=== PATIENT | female | born 1955 | race Caucasian/White ===

== ENCOUNTER → 2016-04-03 | Outpatient (CLI) | payer MEDICARE ==
--- NOTE | 2016-04-07 10:13 | MM ---
Reason for exam: screening (asymptomatic). Last mammogram was performed 1 year ago. History: Patient is postmenopausal. Benign US biopsy breast VAD LT of the left breast, April 18, 2014. Benign left mammotome panel of the left breast, May 22, 2006. Physical Findings: A clinical breast exam by your physician is recommended on an annual basis and results should be correlated with mammographic findings. MG 3D Screening Mammo W/Cad Bilateral CC and MLO view(s) were taken. CV view(s) were taken of the left breast. Prior study comparison: April 02, 2015, bilateral MG 3d diag mammo w/cad NGOC. April 18, 2014, left breast MG diagnostic mammo LT wo CAD. The breast tissue is heterogeneously dense. This may lower the sensitivity of mammography. Benign calcifications. There is no discrete abnormality. No significant changes when compared with prior studies. ASSESSMENT: Benign, BI-RAD 2 RECOMMENDATION: Routine screening mammogram of both breasts in 1 year.
== END | disposition home or self-care (01) ==
LOC: RADMAMWWP 12:51
PROVIDERS: ATTEND Family Medicine
DX: Z12.31 Encounter for screening mammogram for malignant neoplasm of breast (principal)
CPT/HCPCS: 77063; G0202

== ENCOUNTER 2016-07-06 09:13 | Inpatient (IN) | payer MEDICARE ==
[2016-07-06] MEDS ORDERED: ACETAMINOPHEN TAB 500 MG TAB PO STA (09:54)
[2016-07-06] MEDS ORDERED: IBUPROFEN IV 600 MG in SODIUM CHLORIDE 0.9% 250 ML IV STA (09:54)
--- NOTE | 2016-07-06 10:01 | ED ---
General Adult HPI - General Chief complaint: Weakness Stated complaint: ALTERED, NOT FEELING RIGHT Hx DIABETIC Time Seen by Provider: 07/06/16 09:30 Source: patient, RN notes reviewed Mode of arrival: wheelchair Limitations: no limitations - History of Present Illness Initial comments: This is a 61-year-old female with past medical history significant for diabetes and a past history of sepsis. Patient also has significant pedal edema on a chronic basis. Patient comes in today because of a high fever and feeling weak. Patient states she has a mild headache. Patient denies numbness weakness. Patient denies any lightheadedness or dizziness. Patient denies any chest pain difficulty breathing or shortness of breath per patient denies any palpitations. Patient denies any abdominal pain patient denies nausea vomiting diarrhea. Patient denies any new redness to any of her extremities. Patient states she does have a cut on her left big toe but does not appear to be erythematous around the cut. Patient denies any dysuria hematuria urinary frequency. Patient is normally incontinent of urine. - Related Data Home Medications Medication Instructions Recorded Confirmed Calcitriol 0.5 mcg PO COLLINS 09/30/13 07/06/16 Clopidogrel Bisulfate [Plavix] 75 mg PO DAILY 09/30/13 07/06/16 DULoxetine HCL [Cymbalta] 60 mg PO DAILY 09/30/13 07/06/16 Metoprolol Succinate [Toprol XL] 25 mg PO DAILY 09/30/13 07/06/16 oxyCODONE-APAP 10-325MG [Percocet 1 tab PO Q6H PRN 09/30/13 07/06/16 10-325 mg] Furosemide [Lasix] 80 mg PO DAILY 12/21/13 07/06/16 INSULIN LISPRO (humaLOG) [humaLOG See Protocol SQ AC-TID 04/12/14 07/06/16 (formulary)] Allopurinol [Zyloprim] 200 mg PO DAILY 01/28/16 07/06/16 Pregabalin [Lyrica] 75 mg PO BID 01/28/16 07/06/16 Ergocalciferol [Vitamin D2] 50,000 unit PO COLLINS 07/06/16 07/06/16 Ferrous Sulfate [Feosol] 325 mg PO DAILY 07/06/16 07/06/16 Furosemide [Lasix] 40 mg PO HS 07/06/16 07/06/16 Losartan Potassium [Cozaar] 25 mg PO DAILY 07/06/16 07/06/16 Meclizine HCl 12.5 mg PO TID PRN 07/06/16 07/06/16 Topiramate [Topamax] 25 mg PO DAILY 07/06/16 07/06/16 Allergies Allergy/AdvReac Type Severity Reaction Status Date / Time No Known Allergies Allergy Verified 07/06/16 10:00 Review of Systems ROS Statement: Those systems with pertinent positive or pertinent negative responses have been documented in the HPI. ROS Other: All systems not noted in ROS Statement are negative. Past Medical History Past Medical History: Diabetes Mellitus, GERD/Reflux, Rheumatoid Arthritis (RA) , Sleep Apnea/CPAP/BIPAP Additional Past Medical History / Comment(s): kidney failure, broken Lt foot 2011, stroke 2004, vertigo, neck pain History of Any Multi-Drug Resistant Organisms: None Reported Past Surgical History: Breast Surgery Additional Past Surgical History / Comment(s): breast biopsy, gastric sleeve , colonoscopy 04/14/14 Past Anesthesia/Blood Transfusion Reactions: Motion Sickness Past Psychological History: Depression Additional Psychological History / Comment(s): and lives with family home with her . 2 adult children. No tobacco or alcohol use. No experience. No international travel. Pet cats at home they are not new. Used to work in a care of elderly persons Smoking Status: Never smoker Past Alcohol Use History: None Reported Past Drug Use History: None Reported - Past Family History Mother Family Medical History: Diabetes Mellitus Additional Family Medical History / Comment(s): heart attack, Brother of lung cancer 04/19/14 Father Family Medical History: Cancer Additional Family Medical History / Comment(s): lung cancer Brother(s) Family Medical History: Cancer Additional Family Medical History / Comment(s): LUNG General Exam - General Exam Comments Initial Comments: GENERAL: Patient is well-developed and well-nourished. Patient is nontoxic and well- hydrated and is in mild distress. ENT: Neck is soft and supple. No significant lymphadenopathy is noted. Oropharynx is clear. Moist mucous membranes. Neck has full range of motion without eliciting any pain. EYES: The sclera were anicteric and conjunctiva were pink and moist. Extraocular movements were intact and pupils were equal round and reactive to light. Eyelids were unremarkable. PULMONARY: Unlabored respirations. Good breath sounds bilaterally. No audible rales rhonchi or wheezing was noted. CARDIOVASCULAR: There is a regular rate and rhythm without any murmurs gallops or rubs. ABDOMEN: Soft and nontender with normal bowel sounds. No palpable organomegaly was noted. There is no palpable pulsatile mass. SKIN: Skin is clear with no lesions or rashes and otherwise unremarkable. NEUROLOGIC: Patient is alert and oriented x3. Cranial nerves II through XII are grossly intact. Motor and sensory are also intact. Normal speech, volume and content. Symmetrical smile. MUSCULOSKELETAL: Normal extremities with adequate strength and full range of motion. 2+ edema bilaterally patient also has a small superficial abrasion on the anterior surface of the left first toe. Patient's right lower leg is erythematous however patient states this is chronic and it is unchanged. LYMPHATICS: No significant lymphadenopathy is noted PSYCHIATRIC: Normal psychiatric evaluation. Normal interpersonal interactions appears functionally intact in deals appropriately with others. No signs of depression. No signs of anxiety. Limitations: no limitations Course Vital Signs 07/06/16 07/06/16 07/06/16 09:25 09:50 10:25 Temperature 102.9 F H 100.9 F H Pulse Rate 100 103 H 103 H Respiratory 20 18 18 Rate Blood Pressure 194/76 191/77 156/66 O2 Sat by Pulse 100 100 100 Oximetry Medical Decision Making - Medical Decision Making EKG shows sinus tachycardia at 101 bpm IL interval 142 QRS is 70 QT interval 356 QTC is 461. Patient's EKG shows no ST segment elevation or ST segment depression. - Lab Data Result diagrams: 07/06/16 09:50 07/06/16 09:50 Lab Results 07/06/16 07/06/16 07/06/16 Range/Units 09:48 09:50 09:50 WBC 27.9 H* (3.8-10.6) k/uL RBC 4.51 (3.80-5.40) m/uL Hgb 14.5 (11.4-16.0) gm/dL Hct 43.6 (34.0-46.0) % MCV 96.8 (80.0-100.0) fL MCH 32.2 (25.0-35.0) pg MCHC 33.2 (31.0-37.0) g/dL RDW 13.4 (11.5-15.5) % Plt Count 267 (150-450) k/uL Neutrophils % 94 % Lymphocytes % 2 % Monocytes % 3 % Eosinophils % 0 % Basophils % 0 % Neutrophils # 26.3 H (1.3-7.7) k/uL Lymphocytes # 0.6 L (1.0-4.8) k/uL Monocytes # 0.7 (0-1.0) k/uL Eosinophils # 0.1 (0-0.7) k/uL Basophils # 0.1 (0-0.2) k/uL Manual Slide Review Performed Toxic Granulation Present PT (9.0-12.0) sec INR (<1.1) APTT (22.0-30.0) sec Sodium (137-145) mmol/L Potassium (3.5-5.1) mmol/L Chloride (98-107) mmol/L Carbon Dioxide (22-30) mmol/L Anion Gap mmol/L BUN (7-17) mg/dL Creatinine (0.52-1.04) mg/dL Est GFR (MDRD) Af Amer (>60 ml/min/1.73 sqM) Est GFR (MDRD) Non-Af (>60 ml/min/1.73 sqM) Glucose (74-99) mg/dL POC Glucose (mg/dL) 261 H (75-99) mg/dL POC Glu Dredge Hand ID Vijaya Mcmanus Plasma Lactic Acid Flex (0.7-2.0) mmol/L Calcium (8.4-10.2) mg/dL Total Bilirubin (0.2-1.3) mg/dL AST (14-36) U/L ALT (9-52) U/L Alkaline Phosphatase (38-126) U/L Total Creatine Kinase 125 (30-135) U/L CK-MB (CK-2) 1.3 (0.0-2.4) ng/mL CK-MB (CK-2) Rel Index 1.0 Troponin I 0.041 H* (0.000-0.034) ng/mL Total Protein (6.3-8.2) g/dL Albumin (3.5-5.0) g/dL Urine Color Urine Appearance (Clear) Urine pH (5.0-8.0) Ur Specific Lehr (1.001-1.035) Urine Protein (Negative) Urine Glucose (UA) (Negative) Urine Ketones (Negative) Urine Blood (Negative) Urine Nitrite (Negative) Urine Bilirubin (Negative) Urine Urobilinogen (<2.0) mg/dL Ur Leukocyte Esterase (Negative) Urine RBC (0-5) /hpf Urine WBC (0-5) /hpf Ur Squamous Epith Cells (0-4) /hpf Hyaline Casts (0-2) /lpf Urine Mucus (None) /hpf Influenza Type A RNA (Not Detectd) Influenza Type B (PCR) (Not Detectd) 07/06/16 07/06/16 07/06/16 Range/Units 09:50 09:50 09:50 WBC (3.8-10.6) k/uL RBC (3.80-5.40) m/uL Hgb (11.4-16.0) gm/dL Hct (34.0-46.0) % MCV (80.0-100.0) fL MCH (25.0-35.0) pg MCHC (31.0-37.0) g/dL RDW (11.5-15.5) % Plt Count (150-450) k/uL Neutrophils % % Lymphocytes % % Monocytes % % Eosinophils % % Basophils % % Neutrophils # (1.3-7.7) k/uL Lymphocytes # (1.0-4.8) k/uL Monocytes # (0-1.0) k/uL Eosinophils # (0-0.7) k/uL Basophils # (0-0.2) k/uL Manual Slide Review Toxic Granulation PT 11.5 (9.0-12.0) sec INR 1.2 (<1.1) APTT 31.5 H (22.0-30.0) sec Sodium 138 (137-145) mmol/L Potassium 4.9 (3.5-5.1) mmol/L Chloride 99 (98-107) mmol/L Carbon Dioxide 26 (22-30) mmol/L Anion Gap 13 mmol/L BUN 28 H (7-17) mg/dL Creatinine 1.38 H (0.52-1.04) mg/dL Est GFR (MDRD) Af Amer 47 (>60 ml/min/1.73 sqM) Est GFR (MDRD) Non-Af 39 (>60 ml/min/1.73 sqM) Glucose 276 H (74-99) mg/dL POC Glucose (mg/dL) (75-99) mg/dL POC Glu Dredge Hand ID Plasma Lactic Acid Flex 2.6 H* (0.7-2.0) mmol/L Calcium 9.3 (8.4-10.2) mg/dL Total Bilirubin 1.3 (0.2-1.3) mg/dL AST 24 (14-36) U/L ALT 22 (9-52) U/L Alkaline Phosphatase 125 (38-126) U/L Total Creatine Kinase (30-135) U/L CK-MB (CK-2) (0.0-2.4) ng/mL CK-MB (CK-2) Rel Index Troponin I (0.000-0.034) ng/mL Total Protein 7.8 (6.3-8.2) g/dL Albumin 4.3 (3.5-5.0) g/dL Urine Color Urine Appearance (Clear) Urine pH (5.0-8.0) Ur Specific Lehr (1.001-1.035) Urine Protein (Negative) Urine Glucose (UA) (Negative) Urine Ketones (Negative) Urine Blood (Negative) Urine Nitrite (Negative) Urine Bilirubin (Negative) Urine Urobilinogen (<2.0) mg/dL Ur Leukocyte Esterase (Negative) Urine RBC (0-5) /hpf Urine WBC (0-5) /hpf Ur Squamous Epith Cells (0-4) /hpf Hyaline Casts (0-2) /lpf Urine Mucus (None) /hpf Influenza Type A RNA (Not Detectd) Influenza Type B (PCR) (Not Detectd) 07/06/16 07/06/16 Range/Units 10:00 10:15 WBC (3.8-10.6) k/uL RBC (3.80-5.40) m/uL Hgb (11.4-16.0) gm/dL Hct (34.0-46.0) % MCV (80.0-100.0) fL MCH (25.0-35.0) pg MCHC (31.0-37.0) g/dL RDW (11.5-15.5) % Plt Count (150-450) k/uL Neutrophils % % Lymphocytes % % Monocytes % % Eosinophils % % Basophils % % Neutrophils # (1.3-7.7) k/uL Lymphocytes # (1.0-4.8) k/uL Monocytes # (0-1.0) k/uL Eosinophils # (0-0.7) k/uL Basophils # (0-0.2) k/uL Manual Slide Review Toxic Granulation PT (9.0-12.0) sec INR (<1.1) APTT (22.0-30.0) sec Sodium (137-145) mmol/L Potassium (3.5-5.1) mmol/L Chloride (98-107) mmol/L Carbon Dioxide (22-30) mmol/L Anion Gap mmol/L BUN (7-17) mg/dL Creatinine (0.52-1.04) mg/dL Est GFR (MDRD) Af Amer (>60 ml/min/1.73 sqM) Est GFR (MDRD) Non-Af (>60 ml/min/1.73 sqM) Glucose (74-99) mg/dL POC Glucose (mg/dL) (75-99) mg/dL POC Glu Dredge Hand ID Plasma Lactic Acid Flex (0.7-2.0) mmol/L Calcium (8.4-10.2) mg/dL Total Bilirubin (0.2-1.3) mg/dL AST (14-36) U/L ALT (9-52) U/L Alkaline Phosphatase (38-126) U/L Total Creatine Kinase (30-135) U/L CK-MB (CK-2) (0.0-2.4) ng/mL CK-MB (CK-2) Rel Index Troponin I (0.000-0.034) ng/mL Total Protein (6.3-8.2) g/dL Albumin (3.5-5.0) g/dL Urine Color Yellow Urine Appearance Clear (Clear) Urine pH 6.0 (5.0-8.0) Ur Specific Lehr 1.015 (1.001-1.035) Urine Protein 2+ H (Negative) Urine Glucose (UA) 1+ H (Negative) Urine Ketones Trace H (Negative) Urine Blood Trace H (Negative) Urine Nitrite Negative (Negative) Urine Bilirubin Negative (Negative) Urine Urobilinogen 3.0 (<2.0) mg/dL Ur Leukocyte Esterase Negative (Negative) Urine RBC 1 (0-5) /hpf Urine WBC 1 (0-5) /hpf Ur Squamous Epith Cells <1 (0-4) /hpf Hyaline Casts 12 H (0-2) /lpf Urine Mucus Rare H (None) /hpf Influenza Type A RNA Not Detected (Not Detectd) Influenza Type B (PCR) Not Detected (Not Detectd) Disposition Clinical Impression: Sepsis, Cellulitis Disposition: ADMITTED IP TO THIS HOSP Referrals: Mere Rodriguez DO [Primary Care Provider] - 1-2 days Time of Disposition: 10:52
[2016-07-06] MEDS: SODIUM CHLORIDE 0.9% 500 ML IV SCH ×2 (10:03→12:52)
[2016-07-06 10:07] LABS: Glucose,Whole Blood 261 mg/dL (75-99)
[2016-07-06 10:15] LABS: Basophils # (A) 0.1 k/uL (0-0.2); Basophils % (A) 0 %; CH 31.8; Eosinophils # (A) 0.1 k/uL (0-0.7); Eosinophils % (A) 0 %; HCT 43.6 % (34.0-46.0); HDW 2.54; HGB 14.5 gm/dL (11.4-16.0); Luc # (Auto) 0.15; Luc % (Auto) 1; Lymphocytes # (A) 0.6 k/uL (1.0-4.8); Lymphocytes % (A) 2 %; MCH 32.2 pg (25.0-35.0); MCHC 33.2 g/dL (31.0-37.0); MCV 96.8 fL (80.0-100.0); Mean Platelet Volume 7.2; Monocytes # (A) 0.7 k/uL (0-1.0); Monocytes % (A) 3 %; Neutrophils # (A) 26.3 k/uL (1.3-7.7); Neutrophils % (A) 94 %; RBC 4.51 m/uL (3.80-5.40); RDW 13.4 % (11.5-15.5)
[2016-07-06 10:18] LABS: INR 1.2 (<1.1); Partial Thromboplastin Time 31.5 sec (22.0-30.0); Prothrombin Time 11.5 sec (9.0-12.0); WBC 27.9 k/uL (3.8-10.6)
[2016-07-06 10:21] LABS: Calcium 9.3 mg/dL (8.4-10.2); Potassium 4.9 mmol/L (3.5-5.1); Total Bilirubin 1.3 mg/dL (0.2-1.3); Total Protein 7.8 g/dL (6.3-8.2)
[2016-07-06 10:31] LABS: Manual Review Performed; Toxic Granulation Present
[2016-07-06] MEDS ORDERED: LEVOFLOXACIN 750MG-D5W PMX 750 MG in DEXTROSE/WATER 1 150ML.BAG IVPB STA (10:32)
[2016-07-06 10:35] LABS: Appearance,Urine Clear (Clear); Bilirubin,Urine Negative (Negative); Glucose,Urine (UA) 1+ (Negative); Ketones,Urine Trace (Negative); Leukocyte Esterase,Urine Negative (Negative); Mucus,Urine Rare /hpf; Nitrite,Urine Negative (Negative); Particle Count 4729; Protein,Urine 2+ (Negative); RBC,Urine 1 /hpf (0-5); Specific Gravity,Urine 1.015 (1.001-1.035); Squamous Epithelial Cell,Urine <1 /hpf (0-4); UA Billing (MACRO vs. MICRO) MICRO; WBC,Urine 1 /hpf (0-5)
[2016-07-06 10:47] LABS: Creatine Kinase MB 1.3 ng/mL (0.0-2.4)
[2016-07-06 10:50] LABS: Troponin I 0.041 ng/mL (0.000-0.034)
--- NOTE | 2016-07-06 10:50 | XR ---
EXAMINATION TYPE: XR chest 2V DATE OF EXAM: 07/06/2016 COMPARISON: Prior chest x-ray January HISTORY: Weakness and fever, bilateral leg edema TECHNIQUE: Frontal and lateral views of the chest are obtained. FINDINGS: There is no focal air space opacity, pleural effusion, or pneumothorax seen. The cardiac silhouette size is within normal limits. There are overlying cardiac leads. The osseous structures a re intact. IMPRESSION: No acute cardiopulmonary process.
[2016-07-06] MEDS ORDERED: SODIUM CHLORIDE 0.9% 1,000 ML IV ONE (10:52)
[2016-07-06] MEDS ORDERED: MECLIZINE 12.5 MG TAB PO PRN (15:34)
[2016-07-06] MEDS ORDERED: ERGOCALCIFEROL 50,000 UNIT CAP PO SCH (16:00)
[2016-07-06 16:49] LABS: Glucose,Whole Blood 447 mg/dL (75-99)
[2016-07-06] MEDS: ONDANSETRON 4 MG/2 ML VIAL IVP PRN ×2 (17:07→21:43)
[2016-07-06] MEDS: INSULIN LISPRO (humaLOG) 300 UNIT/3 ML VIAL SQ SCH ×2 (17:13→21:37)
[2016-07-06] MEDS: oxyCODONE-APAP 10-325MG 1 EACH TAB PO PRN (19:59)
[2016-07-06] MEDS: PREGABALIN 75 MG CAP PO SCH (20:05)
[2016-07-06] MEDS: FAMOTIDINE 20 MG TAB PO SCH (20:05)
[2016-07-06 20:42] LABS: Glucose,Whole Blood 410 mg/dL (75-99)
--- NOTE | 2016-07-06 21:50 | HP ---
DATE OF ADMISSION: 07/06/2016 The patient is a 61-year-old female came in with multiple nonspecific symptoms. Patient is not clear why she came to the hospital. She states she is not feeling well, probably she is complaining of fatigue and patient was found to have a high-grade fever here. Patient also found to have leukocytosis and although source of infection is not very clear, the patient is admitted saying that she has cellulitis. Patient is morbidly obese. Does have bilateral lower extremity edema, chronic edema and chronic venostasis dermatosis significant in the right leg and the right ankle area, extending up a few centimeters above the ankle circumferentially, but patient does not have any localized of temperature. Patient does not have any pain in that area or any burning sensation. Patient does have redness, which is chronic. Typically appears like a chronic venostasis dermatosis and this redness is not something new, has been for years. Patient was also denied any lightheadedness. Patient denied any cough, runny nose. Patient denied any dysuria. UA is essentially within normal limits. Patient denied any diarrhea, but had one episode of loose stools today morning after the antibiotic. Patient was given levofloxacin and was admitted although source of infection is not very clear. She did have a high-grade temperature of 26. Patient does have leukocytosis of 27.9, although patient received patient had a steroid injection on that can increase WBC count. Patient denied any skin breakdown anywhere. The ( ) source of infection is not known, blood cultures were obtained. Urine cultures were obtained and I will hold off on antibiotics today. We will consult infectious disease. We will see how she does without antibiotic and we will repeat the labs and will monitor her closely and clinically. Other significant things, patient's creatinine is elevated. Baseline is around 1.2. Now it is 1.38. The patient was started on IV fluids and patient is on Lasix. Patient also has lactic acidosis, dehydration from Lasix can contribute to lactic acidosis and sepsis can do that as well although source of sepsis is not clearly known. Home medications include: 1. Calcitriol. 2. Plavix. 3. Duloxetine. 4. Metoprolol. 5. Oxycodone. 6. Acetaminophen. 7. Lasix. 8. Allopurinol. 9. Pregabalin. 10. Ergocalciferol. 11. Ferrous Sulfate. 12. Lasix. 13. Losartan. 14. Meclizine. 15. Topamax. ALLERGIES: No known drug allergies. PAST MEDICAL HISTORY: Type 2 diabetes mellitus, gastroesophageal reflux disease, rheumatoid arthritis, sleep apnea, uses CPAP machine at home and patient mostly has severe osteoarthritis for which rather than rheumatoid arthritis. 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 Breast biopsy in the past, depression. SOCIAL HISTORY: Denied any smoking, alcohol abuse or any drug abuse. FAMILY HISTORY: Mother had diabetes mellitus, heart attack. Brother of lung cancer. Father had lung cancer, brother had lung cancer as described. PHYSICAL EXAMINATION: Temperature 98.0, pulse of 90, respiratory rate of 16, blood pressure is 158/70, saturating at 97% on 2 liters. GENERAL: Morbidly obese. Alert and oriented x3. HEENT: Pupils are round and equally reacting to light. EOMI. No scleral icterus. No conjunctival pallor. Normocephalic, atraumatic. No pharyngeal erythema. No thyromegaly. CARDIOVASCULAR: S1 and S2 present. No murmurs, rubs, or gallops. PULMONARY: Chest is clear to auscultation, no wheezing or crackles. ABDOMEN: Soft, nontender, nondistended, normoactive bowel sounds. No palpable organomegaly. MUSCULOSKELETAL: No joint swelling or deformity. EXTREMITIES: No cyanosis, clubbing, or pedal edema. NEUROLOGICAL: Gross neurological examination did not reveal any focal deficits. SKIN: On dermatologic examination, the patient does not have any significant intertrigo or any skin breakdowns anywhere in the body. Patient does have redness circumferential without any localized of temperature or pain or tenderness consistent with chronic venostasis dermatosis in the right leg and ankle area as mentioned in the interval history. LABORATORY DATA: CBC, CMP significant for elevated WBC count of 27,900. BUN of 28, creatinine 1.28. UA 2+ protein and 1+ ketones trace. ASSESSMENT AND PLAN: 1. Sepsis. Source of sepsis is unknown at this point of time. We will monitor without antibiotics. The patient will be continued on IV fluids. Infectious disease will be consulted. I do not believe patient has cellulitis. Influenza testing is negative. 2. Acute renal failure on chronic kidney disease Stage II. Chronic kidney disease is secondary to possible diabetic nephropathy, acute renal failure secondary to prerenal azotemia. Patient was started on IV fluids. 3. Mildly elevated troponin without any chest pain and significant EKG changes secondary to renal failure. We will repeat another troponin. Patient had sinus tachycardia and left anterior fascicular block, will repeat another set of troponins. 4. Morbid obesity, chronic venostasis. 5. Diabetes mellitus will continue sliding scale insulin. 6. Diabetic nephropathy. 7. Diabetic peripheral neuropathy. 8. Gastroesophageal reflux disease. 9. Depression. 10. Sleep apnea, uses CPAP machine. For above-mentioned chronic medical problems I will go ahead and continue her home medications and management as mentioned above. Dr. Muller from infectious disease will be consulted.
[2016-07-06 22:32] LABS: Glucose,Whole Blood 452 mg/dL (75-99)
[2016-07-06] MEDS ORDERED: ACETAMINOPHEN TAB 325 MG TAB PO STA (23:03)
[2016-07-06] MEDS ORDERED: INSULIN LISPRO (humaLOG) 300 UNIT/3 ML VIAL SQ ONE (23:04)
[2016-07-07] MEDS: oxyCODONE-APAP 10-325MG 1 EACH TAB PO PRN ×4 (01:47→18:43)
[2016-07-07 01:50] LABS: Glucose,Whole Blood 277 mg/dL (75-99)
[2016-07-07 05:56] LABS: Glucose,Whole Blood 240 mg/dL (75-99)
[2016-07-07] MEDS: INSULIN LISPRO (humaLOG) 300 UNIT/3 ML VIAL SQ SCH ×7 (07:05→20:51)
[2016-07-07] MEDS: PREGABALIN 75 MG CAP PO SCH ×2 (07:37→20:51)
[2016-07-07] MEDS: FAMOTIDINE 20 MG TAB PO SCH (07:37)
[2016-07-07] MEDS: CLOPIDOGREL 75 MG TAB PO SCH (07:37)
[2016-07-07] MEDS: METOPROLOL SUCCINATE (ER) 25 MG TAB.ER.24H PO SCH (07:37)
[2016-07-07] MEDS: DULoxetine HCL 60 MG CAPSULE.DR PO SCH (07:37)
[2016-07-07] MEDS: ALLOPURINOL 100 MG TAB PO SCH (07:37)
[2016-07-07] MEDS: TOPIRAMATE 25 MG TAB PO SCH (07:37)
[2016-07-07 09:45] LABS: Hemoglobin A1C 9.8 % (4.2-6.1)
[2016-07-07 11:58] LABS: Glucose,Whole Blood 279 mg/dL (75-99)
[2016-07-07] MEDS ORDERED: LEVOFLOXACIN 750MG-D5W PMX 750 MG in DEXTROSE/WATER 1 150ML.BAG IVPB SCH (12:00)
[2016-07-07] MEDS: FERROUS SULFATE 325 MG TAB PO SCH (12:11)
[2016-07-07 14:18] LABS: CH 31.4; CHCM 31.6; HCT 38.8 % (34.0-46.0); HDW 2.59; HGB 12.4 gm/dL (11.4-16.0); Hypochromasia Slight; MCH 31.8 pg (25.0-35.0); MCHC 31.8 g/dL (31.0-37.0); MCV 99.9 fL (80.0-100.0); Mean Platelet Volume 8.2; RBC 3.89 m/uL (3.80-5.40); RDW 13.5 % (11.5-15.5)
[2016-07-07 14:29] LABS: Calcium 8.2 mg/dL (8.4-10.2); Potassium 4.6 mmol/L (3.5-5.1)
[2016-07-07 16:46] LABS: Glucose,Whole Blood 205 mg/dL (75-99)
[2016-07-07] MEDS: ceFAZolin 2 GM in SODIUM CHLORIDE 0.9% 100 ML IVPB SCH ×2 (16:59→23:15)
[2016-07-07 20:52] LABS: Glucose,Whole Blood 216 mg/dL (75-99)
[2016-07-08] MEDS: oxyCODONE-APAP 10-325MG 1 EACH TAB PO PRN ×4 (00:59→20:24)
[2016-07-08 05:36] LABS: Glucose,Whole Blood 249 mg/dL (75-99)
[2016-07-08] MEDS: INSULIN LISPRO (humaLOG) 300 UNIT/3 ML VIAL SQ SCH ×7 (06:35→22:43)
[2016-07-08] MEDS: ALLOPURINOL 100 MG TAB PO SCH (07:53)
[2016-07-08] MEDS: PREGABALIN 75 MG CAP PO SCH ×2 (07:53→20:28)
[2016-07-08] MEDS: FAMOTIDINE 20 MG TAB PO SCH (07:53)
[2016-07-08] MEDS: DULoxetine HCL 60 MG CAPSULE.DR PO SCH ×2 (07:54→20:28)
[2016-07-08] MEDS: TOPIRAMATE 25 MG TAB PO SCH (07:54)
[2016-07-08] MEDS: METOPROLOL SUCCINATE (ER) 25 MG TAB.ER.24H PO SCH (07:54)
[2016-07-08] MEDS: CLOPIDOGREL 75 MG TAB PO SCH (07:54)
[2016-07-08] MEDS: ceFAZolin 2 GM in SODIUM CHLORIDE 0.9% 100 ML IVPB SCH ×3 (07:56→23:51)
--- NOTE | 2016-07-08 08:45 | CONS ---
DATE OF CONSULTATION: 07/07/2016 REASON FOR CONSULTATION: Cellulitis and a fever. HISTORY OF PRESENT ILLNESS: The patient is a 61-year-old female with past medical significant for diabetes and episode of worsening cellulitis with sepsis. The patient is presenting to the ER on 07/06/2016 with chief complaint of not feeling well, no energy, lightheadedness and dizziness. The patient denies any high-grade fever or chills. She did have a fever on arrival to the ER of 102.9 Fahrenheit. The patient did have an elevated white count of 27.9. The patient has been evaluated by the ER physician. The patient did have a UA that has been found to be significantly positive. Influenza A and B and PCR have been negative. Patient did have a chest x-ray negative for pneumonia. The patient has been treated with antibiotics in the form of Levaquin. I was asked to see the patient for further recommendations regarding medical therapy. Patient was found to have more redness of the right leg compared to yesterday. The patient did have some dull aching pain, about 3 to 4/10, and no radiation. There is no skin breakdown, no drainage. Denies significant chest pain, shortness of breath or cough. No abdominal pain or any diarrhea. REVIEW OF SYSTEMS: CONSTITUTIONAL: Positive for weakness along with fever. EYES: No complaint. ENT: No complaint. RESPIRATORY: Mild cough. CARDIOVASCULAR: No complaint. GENITOURINARY: No complaint. GASTROINTESTINAL: No complaint. MUSCULOSKELETAL: As per HPI. ENDOCRINE: No complaint. NEUROLOGICAL: No complaint. PAST MEDICAL HISTORY: Significant for diabetes mellitus, sleep apnea, rheumatoid arthritis, gastroesophageal reflux disease, history of renal failure, left foot fracture, stroke. PAST SURGICAL HISTORY: Breast biopsy, gastric sleeve, colonoscopy. SOCIAL HISTORY: No history of smoking, drinking or drug use. FAMILY HISTORY: Mother with history of diabetes and heart attack. Father with history of lung cancer. One other brother with lung cancer. ALLERGIES: No known drug allergies. Medications currently include the patient is on: 1. Zyloprim. 2. Plavix. 3. Cymbalta. 4. Vitamin D2. 5. Pepcid. 6. Iron sulfate. 7. Humalog. 8. Antivert. 9. Toprol-XL. 10. Zofran. 11. Percocet. 12. Lyrica. 13. Topamax. On examination, blood pressure 131/51 with a pulse of 80, temperature 97, she is 94% on room air. GENERAL DESCRIPTION: A middle-age female lying in bed in no distress. No tachypnea or accessory muscle of respiration use. HEENT examination shows no pallor or scleral icterus. Oral mucous membranes moist. NECK: Trachea central. There is no thyromegaly. LUNGS: Unlabored breathing. Clear to auscultation anteriorly. No wheeze or crackle. HEART: S1, S2. Regular rate and rhythm. ABDOMEN: Soft, no tenderness. No guarding or rigidity. EXTREMITIES: Swelling chronically with erythema of the right leg which is warm to touch. No redness or any skin breakdown. No fluctuation, induration or any drainage. NEUROLOGICAL: Patient is awake, alert, oriented x3. Mood and affect normal. LABS: Hemoglobin is 12.4, white count 13 yesterday, white count is 7.9. BUN of 29, creatinine 1.34. Urine is negative. Influenza A and B negative. DIAGNOSTIC IMPRESSION AND PLAN: Patient with sepsis in a patient admitted to hospital with fever, elevated white count, source is right lower extremity cellulitis with diffuse swelling and redness, likely streptococcal disease. The patient has no other clinical focus of infection. PLAN: 1. Discontinue Levaquin. 2. Start the patient on cefazolin 2 grams every 8 hours. 3. OLAYINKA wrap to the right leg from just above toes to below the knee. 4. Keep right leg elevated. 5. We will follow up on the clinical condition and cultures to further adjust the medication if needed. Thank you for this consultation. We will follow this patient along with you. NIALL
--- NOTE | 2016-07-08 08:58 | PN ---
61-year-old admitted secondary to fever and sepsis and patient today has localized of temperature in the right leg right leg and redness increased. Initially I did not believe patient has cellulitis but since she has increased redness and localized of temperature and after evaluation by infectious disease who believes patient has cellulitis, patient was started on Cefazolin which will be continued today and patient will be switched to Keflex tomorrow. If her cellulitis improves, the patient will be discharged tomorrow. REVIEW OF SYSTEMS: CARDIOVASCULAR: No chest pain, no orthopnea, no PND, no palpitations. PULMONARY: Denied any shortness of breath. No cough or hemoptysis. GASTROINTESTINAL: No diarrhea, nausea or vomiting. No abdominal pain. Normoactive bowel sounds. NEUROLOGIC: No headaches, no weakness, no numbness. Medications were reviewed. PHYSICAL EXAMINATION: VITAL SIGNS: Temperature is 97.2, pulse 83, respiratory rate of 16. Blood pressure 137/67. Saturating at 94% on room air. GENERAL: The patient is alert and oriented x3, not in any acute distress. Well developed, well nourished. HEENT: Pupils are round and equally reacting to light. EOMI. No scleral icterus. No conjunctival pallor. Normocephalic, atraumatic. No pharyngeal erythema. No thyromegaly. CARDIOVASCULAR: S1 and S2 present. No murmurs, rubs, or gallops. PULMONARY: Chest is clear to auscultation, no wheezing or crackles. ABDOMEN: Soft, nontender, nondistended, normoactive bowel sounds. No palpable organomegaly. MUSCULOSKELETAL: No joint swelling or deformity. EXTREMITIES: Right lower extremity ankle swelling and redness worsened and patient does have chronic venostasis and patient does have localized of temperature today. NEUROLOGICAL: Gross neurological examination did not reveal any focal deficits. SKIN: No rashes. LABORATORY DATA: Patient does have elevated WBC count of 30,000, which has come down from 28,000 yesterday. Kidney function remains stable. ASSESSMENT AND PLAN: 1. Sepsis possibly secondary to right lower limb cellulitis and so far the blood cultures are negative. Patient was being started on Cefazolin. Appreciate infectious disease recommendations. 2. Acute renal failure, and chronic kidney disease Stage II. Possibility of diabetic nephropathy. Continue with IV fluids. 3. Mildly elevated troponin secondary to renal dysfunction probably secondary to chronic kidney disease. Repeat troponin remains stable. 4. Diabetic nephropathy. 5. Type 2 diabetes mellitus. Continue sliding scale insulin. 6. Diabetic peripheral neuropathy. 7. Gastroesophageal reflux disease. 8. Depression. 9. Morbid obesity. 10. Sleep apnea.
--- NOTE | 2016-07-08 09:19 | ECHOF ---
Referral Reason:LV function MEASUREMENTS -------- HEIGHT: 177.8 cm WEIGHT: 138.8 kg BP: 162/65 RVIDd: 2.9 cm (< 3.3) IVSd: 1.2 cm (0.6 - 1.1) LVIDd: 4.3 cm (3.9 - 5.3) LVPWd: 1.2 cm (0.6 - 1.1) IVSs: 1.6 cm LVIDs: 3.0 cm LVPWs: 1.7 cm LA Diam: 4.2 cm (2.7 - 3.8) LAESV Index (A-L): 18.60 ml/m Ao Diam: 3.2 cm (2.0 - 3.7) AV Cusp: 2.3 cm (1.5 - 2.6) MV EXCURSION: 14.577 mm (> 18.000) MV EF SLOPE: 83 mm/s (70 - 150) EPSS: 0.4 cm MV E Alpesh: 1.08 m/s MV DecT: 285 ms MV A Alpesh: 1.20 m/s MV E/A Ratio: 0.91 RAP: 5.00 mmHg RVSP: 64.95 mmHg FINDINGS -------- Sinus rhythm. This was a technically good study. The left ventricular size is normal. There is borderline concentric left ventricular hypertrophy. Overall left ventricular systolic function is normal with, an EF between 60 - 65 %. The right ventricle is normal in size and function. Normal LA size by volume 22+/-6 ml/m2. The right atrium is normal in size. The aortic valve is trileaflet and appears structurally normal. Moderate mitral annular calcification present. There is trace to mild mitral regurgitation. Mild tricuspid regurgitation present. There is severe pulmonary hypertension. The right ventricular systolic pressure, as measured by Doppler, is 64.95mmHg. The pulmonic valve was not well visualized. The aortic root size is normal. The pericardium is normal. CONCLUSIONS -------- 1. Sinus rhythm. 2. There is trace to mild mitral regurgitation. 3. Mild tricuspid regurgitation present. 4. There is severe pulmonary hypertension. 5. The right ventricular systolic pressure, as measured by Doppler, is 64.95mmHg. 6. The pulmonic valve was not well visualized. 7. The aortic root size is normal. 8. The pericardium is normal. 9. This was a technically good study. 10. The left ventricular size is normal. 11. There is borderline concentric left ventricular hypertrophy. 12. Overall left ventricular systolic function is normal with, an EF between 60 - 65 %. 13. The right ventricle is normal in size and function. 14. Normal LA size by volume 22+/-6 ml/m2. 15. The aortic valve is trileaflet and appears structurally normal. 16. Moderate mitral annular calcification present. [employer] ATTENDANT: Orquidea Price RDCS
[2016-07-08 11:41] VITALS: BMI 43.9
[2016-07-08 11:55] LABS: Glucose,Whole Blood 287 mg/dL (75-99)
[2016-07-08] MEDS: FERROUS SULFATE 325 MG TAB PO SCH (12:28)
[2016-07-08] MEDS ORDERED: MINERAL OIL-WHITE PETROLATUM 120 GM JAR TOPICAL PRN (15:00)
[2016-07-08 15:31] LABS: CH 31.2; CHCM 31.1; HCT 37.7 % (34.0-46.0); HDW 2.68; Hypochromasia Slight; MCH 31.9 pg (25.0-35.0); MCHC 31.7 g/dL (31.0-37.0); MCV 100.6 fL (80.0-100.0); Mean Platelet Volume 7.9; RBC 3.75 m/uL (3.80-5.40); RDW 13.3 % (11.5-15.5); WBC 7.6 k/uL (3.8-10.6)
[2016-07-08 15:37] LABS: Anion Gap 8 mmol/L; Blood Urea Nitrogen 21 mg/dL (7-17); Calcium 8.4 mg/dL (8.4-10.2); Carbon Dioxide 27 mmol/L (22-30); Chloride 105 mmol/L (98-107); Glucose 297 mg/dL (74-99); Non-African American GFR(MDRD) 56 (>60 ml/min/1.73 sqM); Potassium 4.8 mmol/L (3.5-5.1); Sodium 140 mmol/L (137-145)
[2016-07-08 17:05] LABS: Glucose,Whole Blood 222 mg/dL (75-99)
--- NOTE | 2016-07-08 19:42 | PN ---
Patient is a 61-year-old admitted with sepsis secondary to cellulitis of the right lower extremity. Patient's ( ) actually appears to be a bit worse. Will continue cefazolin for one more day and see how it does. REVIEW OF SYSTEMS: CARDIOVASCULAR: No chest pain, no orthopnea, no PND, no palpitations. PULMONARY: Denied any shortness of breath. No cough or hemoptysis. GASTROINTESTINAL: No diarrhea, nausea or vomiting. No abdominal pain. Normoactive bowel sounds. NEUROLOGIC: No headaches, no weakness, no numbness. DERMATOLOGIC: Patient today has pain and increased redness in the right lower extremity. Medications were reviewed. PHYSICAL EXAMINATION: VITAL SIGNS: Temperature 97.1, pulse of 63, respiratory rate of 18, blood pressure 167/83. Saturating at 97% on room air. GENERAL: The patient is alert and oriented x3, not in any acute distress. Well developed, well nourished. HEENT: Pupils are round and equally reacting to light. EOMI. No scleral icterus. No conjunctival pallor. Normocephalic, atraumatic. No pharyngeal erythema. No thyromegaly. CARDIOVASCULAR: S1 and S2 present. No murmurs, rubs, or gallops. PULMONARY: Chest is clear to auscultation, no wheezing or crackles. ABDOMEN: Soft, nontender, nondistended, normoactive bowel sounds. No palpable organomegaly. MUSCULOSKELETAL: No joint swelling or deformity. EXTREMITIES: Right lower extremity shows increased redness, localized temperature and tenderness of the right lower extremity. I believe her cellulitis has extended farther proximally as well as distally from the ankle joint than yesterday. NEUROLOGICAL: Gross neurological examination did not reveal any focal deficits. SKIN: No rashes. LABORATORY DATA: CBC showed improvement in creatinine to 1.00. WBC count has come down. Hopefully she will improve by tomorrow. ASSESSMENT AND PLAN: 1. Sepsis secondary to right lower limb cellulitis, which is a bit worse today; expected to improve by tomorrow. Continue with cefazolin. 2. Acute renal failure, improved with IV fluids. Patient may have chronic kidney disease, stage II, from diabetic nephropathy. 3. Mildly elevated troponins secondary to renal dysfunction. Renal function has improved at this point. 4. Diabetic nephropathy. 5. Type 2 diabetes mellitus, for which we will continue with sliding scale insulin. 6. Diabetic peripheral neuropathy. 7. Gastroesophageal reflux disease. 8. Depression. 9. Morbid obesity. 10. Sleep apnea.
[2016-07-08 20:52] LABS: Glucose,Whole Blood 198 mg/dL (75-99)
[2016-07-08] MEDS ORDERED: INSULIN GLARGINE 100 UNIT/ML 10 ML VIAL SQ SCH (21:00)
[2016-07-08] MEDS: INSULIN GLARGINE 100 UNIT/ML 10 ML VIAL SQ SCH (22:42)
--- NOTE | 2016-07-08 23:11 | PN ---
DATE OF SERVICE: 07/08/2016 REASON FOR FOLLOWUP: Right lower extremity cellulitis. INTERVAL HISTORY: The patient is afebrile. She is breathing slightly comfortably. Denies significant chest pain or cough. No abdominal pain. Complains of some burning pain in the right leg area, though no worse than yesterday. No abdominal pain. No diarrhea. She was supposed to have an Sina wrap for compression, but unfortunately that was not applied. On examination, blood pressure is 164/99 with a pulse of 79, temperature 97.9. She is 99% on room air. General description is a middle-aged female lying in bed in no distress. RESPIRATORY SYSTEM: Unlabored breathing. Clear to auscultation anteriorly. HEART: S1, S2. Regular rate and rhythm. ABDOMEN: Soft. No tenderness. RIGHT LEG: Swelling and redness slightly improved. She is warm to touch. LABS: Hemoglobin is 12, white count of 7.6. It was 13,000 yesterday. BUN of 21, creatinine 1.0. DIAGNOSTIC IMPRESSION AND PLAN: Patient with acute right lower extremity cellulitis. Patient responds to cefazolin that will continue. RN has been advised to place the Sina wrap to keep the swelling down. After overall improvement, she should finish therapy with oral Keflex with outpatient followup. Continue supportive care. NIALL
[2016-07-09] MEDS: oxyCODONE-APAP 10-325MG 1 EACH TAB PO PRN ×5 (01:46→21:47)
[2016-07-09 06:13] LABS: Glucose,Whole Blood 228 mg/dL (75-99)
[2016-07-09] MEDS: INSULIN LISPRO (humaLOG) 300 UNIT/3 ML VIAL SQ SCH ×7 (07:29→21:48)
[2016-07-09] MEDS: ceFAZolin 2 GM in SODIUM CHLORIDE 0.9% 100 ML IVPB SCH ×3 (08:18→23:36)
[2016-07-09] MEDS: ALLOPURINOL 100 MG TAB PO SCH (08:19)
[2016-07-09] MEDS: CLOPIDOGREL 75 MG TAB PO SCH (08:20)
[2016-07-09] MEDS: DULoxetine HCL 60 MG CAPSULE.DR PO SCH ×2 (08:20→21:46)
[2016-07-09] MEDS: TOPIRAMATE 25 MG TAB PO SCH (08:21)
[2016-07-09] MEDS: METOPROLOL SUCCINATE (ER) 25 MG TAB.ER.24H PO SCH (08:21)
[2016-07-09] MEDS: FAMOTIDINE 20 MG TAB PO SCH (08:21)
[2016-07-09] MEDS: PREGABALIN 75 MG CAP PO SCH ×2 (08:26→21:46)
[2016-07-09] MEDS: FERROUS SULFATE 325 MG TAB PO SCH (11:13)
[2016-07-09 11:58] LABS: Glucose,Whole Blood 256 mg/dL (75-99)
--- NOTE | 2016-07-09 15:08 | PN ---
DATE OF SERVICE: 07/09/2016 Reason for followup is right lower extremity cellulitis. INTERVAL HISTORY: The patient is afebrile, she is breathing comfortably. Denies any significant chest pain or shortness of breath, no cough. No abdominal pain. She did have some burning pain with Silvadene cream, which has been discontinued. On examination, blood pressure 160/74 with a pulse of 68, temperature 98.2. She is 98% on room air. General description is a middle-aged female, up in the bed in no distress. RESPIRATORY SYSTEM: Unlabored breathing. Clear to auscultation anteriorly. HEART: S1, S2. Regular rate and rhythm. ABDOMEN: Soft. No tenderness. Right leg overall swelling and redness have improved. LABS: Hemoglobin is 12 with a white count of 7.6, BUN of 21, creatinine 1.0. DIAGNOSTIC IMPRESSION AND PLAN: Patient with right lower extremity cellulitis. Overall improvement on cefazolin. Finish therapy with p.o. Keflex 500 mg t.i.d. for another 10 days along with Sina wrap to keep the swelling down and outpatient followup.
[2016-07-09 17:07] LABS: Glucose,Whole Blood 230 mg/dL (75-99)
--- NOTE | 2016-07-09 19:41 | PN ---
Right lower limb redness and localized temperature are pretty much the same or a little bit worse. Patient was advised to elevate the leg. Patient will continue cefazolin. Because of her lack of improvement in symptoms, I will hold her discharge today. REVIEW OF SYSTEMS: CARDIOVASCULAR: No chest pain, no orthopnea, no PND, no palpitations. PULMONARY: Denied any shortness of breath. No cough or hemoptysis. GASTROINTESTINAL: No diarrhea, nausea or vomiting. No abdominal pain. Normoactive bowel sounds. NEUROLOGIC: No headaches, no weakness, no numbness. DERMATOLOGIC: As described in HPI. Medications were reviewed. PHYSICAL EXAMINATION: VITAL SIGNS: Temperature 99.2, pulse of 68, respiratory rate of 18, blood pressure 160/74. Saturating at 98% on room air. GENERAL: Obese. Alert and oriented x3. HEENT: Pupils are round and equally reacting to light. EOMI. No scleral icterus. No conjunctival pallor. Normocephalic, atraumatic. No pharyngeal erythema. No thyromegaly. CARDIOVASCULAR: S1 and S2 present. No murmurs, rubs, or gallops. PULMONARY: Chest is clear to auscultation, no wheezing or crackles. ABDOMEN: Soft, nontender, nondistended, normoactive bowel sounds. No palpable organomegaly. MUSCULOSKELETAL: No joint swelling or deformity. EXTREMITIES: No significant change compared to yesterday. Actually redness and localized temperature and redness are a bit worse, even compared to yesterday, but her sepsis symptoms, including leukocytosis, have completely resolved. NEUROLOGICAL: Gross neurological examination did not reveal any focal deficits. SKIN: No rashes. LABORATORY DATA: CBC, CMP showed improvement in creatinine to 1.00. ASSESSMENT AND PLAN: 1. Sepsis secondary to right lower limb cellulitis. Will continue with IV antibiotics. Will monitor her tomorrow. If there is improvement tomorrow, patient will be discharged. Otherwise, patient needs to be considered for staphylococcal cellulitis. 2. Acute renal failure, improved with IV fluids. 3. Mildly elevated troponins secondary to renal dysfunction. 4. Diabetic neuropathy. 5. Type 2 diabetes mellitus. Will continue with the present regimen of insulin. Patient's blood sugars are not well controlled at this time. Will increase the t.i.d. before-meal insulin to 10 units. 6. Depression. 7. Morbid obesity. 8. Sleep apnea. For above-mentioned chronic medical problems, I will go ahead and continue her home medications.
[2016-07-09 21:24] LABS: Glucose,Whole Blood 134 mg/dL (75-99)
[2016-07-09] MEDS: INSULIN GLARGINE 100 UNIT/ML 10 ML VIAL SQ SCH (21:47)
[2016-07-10] MEDS: oxyCODONE-APAP 10-325MG 1 EACH TAB PO PRN ×5 (01:42→22:11)
[2016-07-10 07:00] LABS: Glucose,Whole Blood 221 mg/dL (75-99)
[2016-07-10] MEDS: INSULIN LISPRO (humaLOG) 300 UNIT/3 ML VIAL SQ SCH ×7 (08:15→21:03)
[2016-07-10] MEDS: ALLOPURINOL 100 MG TAB PO SCH (08:17)
[2016-07-10] MEDS: ceFAZolin 2 GM in SODIUM CHLORIDE 0.9% 100 ML IVPB SCH (08:17)
[2016-07-10] MEDS: CLOPIDOGREL 75 MG TAB PO SCH (08:17)
[2016-07-10] MEDS: FAMOTIDINE 20 MG TAB PO SCH ×2 (08:18→21:02)
[2016-07-10] MEDS: TOPIRAMATE 25 MG TAB PO SCH (08:18)
[2016-07-10] MEDS: DULoxetine HCL 60 MG CAPSULE.DR PO SCH ×2 (08:18→21:02)
[2016-07-10] MEDS: METOPROLOL SUCCINATE (ER) 25 MG TAB.ER.24H PO SCH (08:18)
[2016-07-10] MEDS: PREGABALIN 75 MG CAP PO SCH ×2 (08:18→21:10)
[2016-07-10 09:10] LABS: ALT 20 U/L (9-52); AST 18 U/L (14-36); Alkaline Phosphatase 105 U/L (38-126); Anion Gap 9 mmol/L; Blood Urea Nitrogen 16 mg/dL (7-17); Calcium 8.9 mg/dL (8.4-10.2); Carbon Dioxide 27 mmol/L (22-30); Chloride 104 mmol/L (98-107); Glucose 323 mg/dL (74-99); Non-African American GFR(MDRD) >60 (>60 ml/min/1.73 sqM); Potassium 4.7 mmol/L (3.5-5.1); Sodium 140 mmol/L (137-145); Total Bilirubin 0.6 mg/dL (0.2-1.3); Total Protein 6.3 g/dL (6.3-8.2)
[2016-07-10] MEDS: FERROUS SULFATE 325 MG TAB PO SCH (11:53)
[2016-07-10 12:22] LABS: Glucose,Whole Blood 308 mg/dL (75-99)
[2016-07-10] MEDS ORDERED: IV VANCOMYCIN PER PHARMACY 1 EACH MISC MISCELLANE PRN (13:38)
[2016-07-10] MEDS ORDERED: VANCOMYCIN 2,500 MG in SODIUM CHLORIDE 0.9% 500 ML IVPB ONE (15:00)
[2016-07-10] MEDS ORDERED: INSULIN GLARGINE 100 UNIT/ML 10 ML VIAL SQ SCH (16:51)
--- NOTE | 2016-07-10 16:56 | P.PN ---
Subjective Date of service 07/10/2016. Progress note being dictated for Dr. Chong. Interval history: This is a 61-year-old female admitted with sepsis secondary to right lower limb cellulitis, acute renal failure, and multiple other medical issues. Cellulitis appears to have worsened, increased redness, edema and antibiotics have been changed as per infectious disease to vancomycin. Elevated blood sugars. Afebrile. Denies chest pain, palpitations or increasing shortness of breath. Objective - Vital Signs Vital signs: Vital Signs Temp 97.3 F L 07/10/16 15:00 Pulse 69 07/10/16 15:00 Resp 18 07/10/16 15:00 BP 158/67 07/10/16 15:00 Pulse Ox 96 07/10/16 15:00 Intake & Output 07/09/16 07/10/16 07/10/16 18:59 06:59 18:59 Intake Total 400 250 Balance 400 250 Weight 138.5 kg Intake: IV 20 0.9 ns 20 Oral 380 250 Other: # Voids 0 1 3 # Bowel Movements 0 1 - Exam PHYSICAL EXAM: VITAL SIGNS: [As above] GENERAL: [Sitting up in bed, no acute distress] HEENT: [Pupils equal conjunctiva normal.] NECK: [Supple, no JVD] RESPIRATORY EFFORT:[ Normal] LUNGS: [Clear to auscultation, no wheezes rhonchi or crackles] CARDIOVASCULAR[ regular S1 and S2, no murmurs rubs or gallops, positive edema] GI: [Abdomen soft, nontender, positive bowel sounds.] PSYCH: [Alert and oriented -3, mood and affect normal.] SKIN: Affected extremity appears worsen with increased redness and increased localized temperature NEURO: No focal deficits Microbiology 07/06/16 13:42 Blood Blood Culture - Preliminary No Growth after 96 hours 07/06/16 09:50 Blood Blood Culture - Preliminary No Growth after 96 hours 07/06/16 10:15 Urine,Catheterized Urine Culture - Final - Labs CBC & Chem 7: 07/08/16 15:16 07/10/16 08:23 Labs: Abnormal Lab Results - Last 24 Hours (Table) 07/09/16 07/09/16 07/10/16 Range/Units 17:01 21:21 06:58 Glucose (74-99) mg/dL POC Glucose (mg/dL) 230 H 134 H 221 H (75-99) mg/dL Albumin (3.5-5.0) g/dL 07/10/16 07/10/16 Range/Units 08:23 12:15 Glucose 323 H (74-99) mg/dL POC Glucose (mg/dL) 308 H (75-99) mg/dL Albumin 3.2 L (3.5-5.0) g/dL Microbiology - Last 24 Hours (Table) 07/06/16 13:42 Blood Culture - Preliminary Blood No Growth after 96 hours 07/06/16 09:50 Blood Culture - Preliminary Blood No Growth after 96 hours Assessment and Plan Plan: 1. Sepsis secondary right lower limb cellulitis. Possible staphylococcal cellulitis 2. [ Acute renal failure, improved with IV fluid hydration]. 3. [] Mild elevated troponin secondary to renal dysfunction. 4. [ Diabetic neuropathy]. 5. [ Diabetes mellitus type 2]. 6. [ Depression]. 7. [ Morbid obesity, BMI 43.8]. 8. Sleep apnea Plan: Continue on current medication regime ,monitoring and symptomatic treatment. IV antibiotics as mentioned changed to vancomycin today as per infectious disease. Lantus insulin increased with close monitoring of Accu- Cheks. PT/OT consulted for potential subacute rehab. Further recommendations pending. The impression and plan of care has been dictated as directed. : I performed a H&P examination of this patient and discussed the same with the dictator. I agree with the dictator's note. Any additional findings/opinions/ etc. will be noted.
[2016-07-10 17:06] LABS: Glucose,Whole Blood 91 mg/dL (75-99)
[2016-07-10 20:35] LABS: Glucose,Whole Blood 154 mg/dL (75-99)
[2016-07-11] MEDS: oxyCODONE-APAP 10-325MG 1 EACH TAB PO PRN ×3 (02:07→12:30)
[2016-07-11] MEDS ORDERED: VANCOMYCIN 2,000 MG in SODIUM CHLORIDE 0.9% 500 ML IVPB SCH (06:00)
[2016-07-11 07:21] LABS: Glucose,Whole Blood 202 mg/dL (75-99)
[2016-07-11 07:37] VITALS: RESP 18; TEMP 97.4
[2016-07-11] MEDS: INSULIN LISPRO (humaLOG) 300 UNIT/3 ML VIAL SQ SCH ×4 (07:57→12:16)
[2016-07-11] MEDS: CLOPIDOGREL 75 MG TAB PO SCH (07:59)
[2016-07-11] MEDS: ALLOPURINOL 100 MG TAB PO SCH (07:59)
[2016-07-11] MEDS: DULoxetine HCL 60 MG CAPSULE.DR PO SCH (07:59)
[2016-07-11] MEDS: TOPIRAMATE 25 MG TAB PO SCH (08:00)
[2016-07-11] MEDS: FAMOTIDINE 20 MG TAB PO SCH (08:00)
[2016-07-11] MEDS: METOPROLOL SUCCINATE (ER) 25 MG TAB.ER.24H PO SCH (08:00)
--- NOTE | 2016-07-11 08:31 | PN ---
DATE OF SERVICE: 07/10/2016 Reason for followup is right lower extremity cellulitis. INTERVAL HISTORY: The patient is afebrile. She has been breathing comfortably. Denies significant chest pain, shortness of breath or cough. No abdominal pain. Right leg significantly more swollen and red, but patient denies significant pain to that area. On examination, blood pressure is 158/67 with the pulse of 69, temperature 97.3. She is 96% on room air. General description is an elderly female, lying in bed in no distress. RESPIRATORY SYSTEM: Unlabored breathing, clear to auscultation anteriorly. HEART: S1, S2. Regular rate and rhythm. ABDOMEN: Soft. No tenderness. Right leg swelling with ( ). LABS: BUN of 16 with a creatinine 0.91. DIAGNOSTIC IMPRESSION AND PLAN: Patient with right lower extremity cellulitis. The patient's fever and white count did respond to cefazolin, however, the drainage is more marked, question of dependent edema ( ) we did order for the Sina wrap that has not bee applied. RN was instructed to juan the area of redness and reapply the Sina wrap. Antibiotic will be adjusted to vancomycin and will reevaluate the patient tomorrow. Continue supportive care.
[2016-07-11] MEDS: PREGABALIN 75 MG CAP PO SCH (08:41)
[2016-07-11 12:03] LABS: Glucose,Whole Blood 188 mg/dL (75-99)
[2016-07-11] MEDS: FERROUS SULFATE 325 MG TAB PO SCH (12:17)
--- NOTE | 2016-07-11 14:03 | PN ---
DATE OF SERVICE: 07/11/2016 Reason for followup is right lower extremity cellulitis. INTERVAL HISTORY: The patient is afebrile. She is currently breathing comfortably. Denies significant chest pain, shortness of breath or cough. No abdominal pain. ( ) worsening pain in the right leg area. On examination, blood pressure 180/90 with a pulse of 68, temperature 97.4. She is 97% on room air. General description is middle age female lying in bed in no distress. RESPIRATORY SYSTEM; Unlabored breathing. Clear to auscultation anteriorly. HEART: S1, S2. Regular rate and rhythm. ABDOMEN: Soft, no tenderness. RIGHT LEG: Overall swelling and redness improved from yesterday. LABS: No new labs have been obtained today. DIAGNOSTIC IMPRESSION AND PLAN: Patient with right lower extremity cellulitis. The patient fever and white count responded to ( ) and redness seem to respond yesterday with the addition of vancomycin. Plan at this time is to finish therapy with p.o. Keflex and doxycycline combination for another 10 days along with Sina wrap to keep the swelling down and follow up in the office in a week. Script had been sent to the pharmacy.
[2016-07-11 14:57] VITALS: BP 161/84; PULSE 63
[2016-07-13] MEDS ORDERED: VANCOMYCIN TROUGH DUE 1 EACH MISC MISCELLANE ONE (05:00)
--- NOTE | 2016-07-27 20:33 | P.DS ---
Providers Date of admission: 07/06/16 10:53 Attending physician: Alix Crawford Consults: 07/06/16 15:46 Consult Physician Routine Consulting Provider: Garcia Muller Consult Reason/Comments: bilateral lower extremity swelling Do you want consulting provider notified?: Yes Primary care physician: Mere Rodriguez Hospital Course: FInal Diagnoses: 1. Sepsis secondary right lower limb cellulitis. Possible staphylococcal cellulitis 2. [ Acute renal failure, improved with IV fluid hydration]. 3. [] Mild elevated troponin secondary to renal dysfunction. 4. [ Diabetic neuropathy]. 5. [ Diabetes mellitus type 2]. 6. [ Depression]. 7. [ Morbid obesity, BMI 43.8]. 8. Sleep apnea Hospital Course:This is a 61-year-old female admitted with sepsis secondary to right lower limb cellulitis, acute renal failure, and multiple other medical issues.Tx with IV fluids and antibiotics. Initally treated with cefazolin, cellulitis worsened, antibiotics adjusted to vancomycin as per ID. Significant clinical improvement. Cleared by ID for discharge.Patient is being discharged home in a stable condition with a guaded prognosis. Microbiology 07/06/16 13:42 Blood Blood Culture - Final No Growth after 144 hours 07/06/16 09:50 Blood Blood Culture - Final No Growth after 144 hours 07/06/16 10:15 Urine,Catheterized Urine Culture - Final The impression and plan of care has been dictated as directed as a scribe.. : I performed a H&P examination of this patient and discussed the same with the dictator. I agree with the dictator's note. Any additional findings/opinions/ etc. will be noted. Patient Condition at Discharge: Stable Plan - Discharge Summary New Discharge Prescriptions: New oxyCODONE-APAP 10-325MG [Percocet 10-325 mg] 1 each PO Q4H PRN #30 tab PRN Reason: Moderate Pain Furosemide [Lasix] 40 mg PO DAILY #30 tablet Cephalexin [Keflex] 500 mg PO Q6HR #40 cap Doxycycline Hyclate [Vibramycin] 100 mg PO BID #20 cap Continue Clopidogrel Bisulfate [Plavix] 75 mg PO DAILY Metoprolol Succinate [Toprol XL] 25 mg PO DAILY DULoxetine HCL [Cymbalta] 60 mg PO DAILY Calcitriol 0.5 mcg PO COLLINS INSULIN LISPRO (humaLOG) [humaLOG (formulary)] See Protocol SQ AC-TID Allopurinol [Zyloprim] 200 mg PO DAILY Pregabalin [Lyrica] 75 mg PO BID Ergocalciferol [Vitamin D2 (DRISDOL)] 50,000 unit PO COLLINS Meclizine HCl 12.5 mg PO TID PRN PRN Reason: Vertigo Topiramate [Topamax] 25 mg PO DAILY Ferrous Sulfate [Iron (65 MG Elemental)] 325 mg PO DAILY Discontinued oxyCODONE-APAP 10-325MG [Percocet 10-325 mg] 1 tab PO Q6H PRN PRN Reason: Pain Furosemide [Lasix] 80 mg PO DAILY Losartan Potassium [Cozaar] 25 mg PO DAILY Furosemide [Lasix] 40 mg PO HS Discharge Medication List Calcitriol 0.5 mcg PO COLLINS 09/30/13 [History] Clopidogrel Bisulfate [Plavix] 75 mg PO DAILY 09/30/13 [History] DULoxetine HCL [Cymbalta] 60 mg PO DAILY 09/30/13 [History] Metoprolol Succinate [Toprol XL] 25 mg PO DAILY 09/30/13 [History] INSULIN LISPRO (humaLOG) [humaLOG (formulary)] See Protocol SQ AC-TID 04/12/14 [ History] Allopurinol [Zyloprim] 200 mg PO DAILY 01/28/16 [History] Pregabalin [Lyrica] 75 mg PO BID 01/28/16 [History] Ergocalciferol [Vitamin D2 (DRISDOL)] 50,000 unit PO COLLINS 07/06/16 [History] Ferrous Sulfate [Iron (65 MG Elemental)] 325 mg PO DAILY 07/06/16 [History] Meclizine HCl 12.5 mg PO TID PRN 07/06/16 [History] Topiramate [Topamax] 25 mg PO DAILY 07/06/16 [History] Cephalexin [Keflex] 500 mg PO Q6HR #40 cap 07/11/16 [Rx] Doxycycline Hyclate [Vibramycin] 100 mg PO BID #20 cap 07/11/16 [Rx] Furosemide [Lasix] 40 mg PO DAILY #30 tablet 07/11/16 [Rx] oxyCODONE-APAP 10-325MG [Percocet 10-325 mg] 1 each PO Q4H PRN #30 tab 07/11/16 [Rx] Follow up Appointment(s)/Referral(s): Mere Rodriguez DO [Primary Care Provider] - 07/15/16 9:20 am [facility], [NON-STAFF] - Garcia Muller MD [STAFF PHYSICIAN] - 1 Week Patient Instructions/Handouts: Cellulitis (DC), Sepsis (GEN) Activity/Diet/Wound Care/Special Instructions: Cardiac, diabetic diet. OLAYINKA wraps to bilateral legs and elevate when at rest. Discharge Disposition: HOME WITH HOME HEALTH SERVICES
== END 2016-07-11 15:26 | disposition home health service (06) | DRG 872 ==
LOC: EC 09:13 → 6SEL 10:53 → 4MS4W 07-09 20:08
PROVIDERS: ADMIT Hospitalist; ATTEND Hospitalist
DX: A41.9 Sepsis, unspecified organism (principal); E87.2 Acidosis; E11.21 Type 2 diabetes mellitus with diabetic nephropathy; N17.9 Acute kidney failure, unspecified; E11.42 Type 2 diabetes mellitus with diabetic polyneuropathy; N18.3 Chronic kidney disease, stage 3 (moderate); L03.115 Cellulitis of right lower limb; E11.22 Type 2 diabetes mellitus with diabetic chronic kidney disease; E66.01 Morbid (severe) obesity due to excess calories; E86.0 Dehydration; F32.9 Major depressive disorder, single episode, unspecified; G47.30 Sleep apnea, unspecified; K21.9 Gastro-esophageal reflux disease without esophagitis; M06.9 Rheumatoid arthritis, unspecified; R32 Unspecified urinary incontinence; Z79.4 Long term (current) use of insulin; Z79.899 Other long term (current) drug therapy; Z80.1 Family history of malignant neoplasm of trachea, bronchus and lung; Z82.49 Family history of ischemic heart disease and other diseases of the circulatory system; Z86.73 Personal history of transient ischemic attack (TIA), and cerebral infarction without residual deficits; B95.8 Unspecified staphylococcus as the cause of diseases classified elsewhere
CPT/HCPCS: 36415; 51701; 71020; 80048; 80053; 81001; 82550; 82553; 83036; 83605; 84484; 85025; 85027; 85610; 85730; 87040; 87086; 87502; 93005; 93306; 96361; 96365; 99285

== ENCOUNTER → 2016-07-31 | Outpatient (CLI) | payer MEDICARE ==
--- NOTE | 2016-08-01 07:16 | US ---
EXAMINATION TYPE: US transvaginal DATE OF EXAM: 07/31/2016 COMPARISON: US September 10, 2015 CLINICAL HISTORY: Post menopausal bleeding N95.0. Patient stated was on antibiotic first part of July and had episode of post menopausal bleeding then; TECHNIQUE: Transvaginal (TV) Date of LMP: Postmenopausal EXAM MEASUREMENTS: Uterus: 7.6 x 5.1 x 4.3cm cm Endometrial Stripe: 1.2 cm Right Ovary: not seen Left Ovary: 1.4 x 0.8 x 1.1 cm 1. Uterus: Retroverted on last image 2. Endometrium: abnormally thickened for post menopause patient; upper endometrial cyst noted = 0.4 x 0.3 x 0.4cm 3. Right Ovary: not seen 4. Left Ovary: wnl 5. Bilateral Adnexa: bowel loops noted in right adnexa 6. Posterior cul-de-sac: wnl Uterus is markedly heterogeneous appearance. Endometrium appears thickened up to 16 mm seen best on i mage 18 towards the fundus. Some tiny cystic change is present centrally in the uterus. No free fluid is seen in pelvic cul-de-sac. Left ovary is identified. Right ovary is not clearly seen. No adnexal masses are noted. IMPRESSION: Increased suspicious thickening of the endometrium, differential includes hyperplasia william roger neoplasm, sampling advised to further assess.
== END | disposition home or self-care (01) ==
LOC: RADUSWWP 15:44
PROVIDERS: ATTEND Family Medicine
DX: R93.8 Abnormal findings on diagnostic imaging of other specified body structures (principal); N95.0 Postmenopausal bleeding
CPT/HCPCS: 76830

== ENCOUNTER → 2016-10-15 | Outpatient (CLI) | payer MEDICARE ==
[2016-10-15 11:11] LABS: Calcium 9.4 mg/dL (8.4-10.2); Potassium 4.6 mmol/L (3.5-5.1); Total Bilirubin 0.3 mg/dL (0.2-1.3); Total Protein 6.8 g/dL (6.3-8.2)
[2016-10-15 14:45] LABS: Hemoglobin A1C 10.2 % (4.2-6.1)
== END | disposition home or self-care (01) ==
LOC: LABWHC1 09:49
PROVIDERS: ATTEND Internal Medicine Endocrinology, Diabetes & Metabolism
DX: E11.65 Type 2 diabetes mellitus with hyperglycemia (principal)
CPT/HCPCS: 36415; 80053; 80061; 83036; 84443; 84681

== ENCOUNTER 2016-11-16 17:14 | Emergency (ER) | payer MEDICARE ==
[2016-11-16 17:49] VITALS: RESP 18
[2016-11-16 18:46] LABS: Appearance,Urine Cloudy (Clear); Bacteria,Urine Rare /hpf; Bilirubin,Urine Negative (Negative); Glucose,Urine (UA) 4+ (Negative); Ketones,Urine Negative (Negative); Leukocyte Esterase,Urine Moderate (Negative); Mucus,Urine Rare /hpf; Nitrite,Urine Negative (Negative); PH, Urine 5.5 (5.0-8.0); Particle Count 4612; Protein,Urine 2+ (Negative); RBC,Urine 4 /hpf (0-5); Specific Gravity,Urine 1.018 (1.001-1.035); Squamous Epithelial Cell,Urine 3 /hpf (0-4); UA Billing (MACRO vs. MICRO) MICRO; Urobilinogen,Urine <2.0 mg/dL (<2.0); WBC,Urine 17 /hpf (0-5)
[2016-11-16 18:54] LABS: Anion Gap 11 mmol/L; Blood Urea Nitrogen 21 mg/dL (7-17); Calcium 10.1 mg/dL (8.4-10.2); Carbon Dioxide 27 mmol/L (22-30); Chloride 101 mmol/L (98-107); Glucose 236 mg/dL (74-99); Non-African American GFR(MDRD) 56 (>60 ml/min/1.73 sqM); Sodium 139 mmol/L (137-145)
[2016-11-16 18:57] LABS: Basophils % (A) 0 %; CH 31.4; CHCM 31.6; Eosinophils # (A) 0.1 k/uL (0-0.7); Eosinophils % (A) 2 %; HCT 43.6 % (34.0-46.0); HDW 2.38; HGB 13.7 gm/dL (11.4-16.0); Luc # (Auto) 0.16; Luc % (Auto) 2; Lymphocytes # (A) 1.3 k/uL (1.0-4.8); Lymphocytes % (A) 16 %; MCH 31.3 pg (25.0-35.0); MCHC 31.5 g/dL (31.0-37.0); MCV 99.4 fL (80.0-100.0); Mean Platelet Volume 6.9; Monocytes # (A) 0.5 k/uL (0-1.0); Monocytes % (A) 6 %; Neutrophils % (A) 75 %; RBC 4.38 m/uL (3.80-5.40); RDW 13.4 % (11.5-15.5); WBC 8.1 k/uL (3.8-10.6); WBC (Perox) 8.27
[2016-11-16] MEDS ORDERED: SULFAMETHOX-TMP 800-160MG 1 EACH TAB PO STA (19:09)
[2016-11-16 19:11] VITALS: PULSE 70; TEMP 97.8
--- NOTE | 2016-11-16 19:19 | ED ---
General Adult HPI - General Chief complaint: Nausea/Vomiting/Diarrhea Stated complaint: naseous; hx of septic shock Time Seen by Provider: 11/16/16 17:53 Source: patient, family Mode of arrival: wheelchair Limitations: no limitations - History of Present Illness Initial comments: 61-year-old female with past medical history of CVA/TIA, DM, GERD, HTN , RA, sleep apnea, vertigo, previous gastric sleeve on 11/07/2014, and colonoscopy on 04/14/2014 present for evaluation of generalized feeling unwell. She states that she's had some generalized fatigue and intermittent nausea since last Thursday. She denies any measured fevers or chills but states she intermittently has subjective symptoms. There've been no interventions that it relieved her symptoms and nothing has been exacerbating with the exception of increased activity. The only other associated symptom is increased urinary frequency. - Related Data Home Medications Medication Instructions Recorded Confirmed Calcitriol 0.5 mcg PO COLLINS 09/30/13 11/16/16 Clopidogrel Bisulfate [Plavix] 75 mg PO DAILY 09/30/13 11/16/16 DULoxetine HCL [Cymbalta] 60 mg PO BID 09/30/13 11/16/16 Metoprolol Succinate [Toprol XL] 25 mg PO DAILY 09/30/13 11/16/16 Allopurinol [Zyloprim] 200 mg PO DAILY 01/28/16 11/16/16 Pregabalin [Lyrica] 75 mg PO TID 01/28/16 11/16/16 Ferrous Sulfate [Iron (65 MG 325 mg PO DAILY 07/06/16 11/16/16 Elemental)] Topiramate [Topamax] 25 mg PO BID 07/06/16 11/16/16 Furosemide [Lasix] 40 mg PO BID 11/16/16 11/16/16 Insulin Aspart [NovoLOG] 8 unit SQ AC-LUNCH 11/16/16 11/16/16 Insulin Aspart [NovoLOG] 12 unit SQ AC-BRKFST 11/16/16 11/16/16 Insulin Aspart [NovoLOG] 14 unit SQ AC-SUPPER 11/16/16 11/16/16 Insulin Glargine,Hum.rec.anlog 54 unit SQ HS 11/16/16 11/16/16 [Lantus Solostar] Losartan Potassium [Cozaar] 50 mg PO DAILY 11/16/16 11/16/16 Meclizine [Antivert] 25 mg PO TID PRN 11/16/16 11/16/16 oxyCODONE-APAP 10-325MG [Percocet 1 tab PO Q6H PRN 11/16/16 11/16/16 10-325 mg] Previous Rx's Medication Instructions Recorded Sulfamethox-Tmp 800-160Mg [Bactrim 1 tab PO Q12HR #10 tab 11/16/16 DS 800-160 mg] Allergies Allergy/AdvReac Type Severity Reaction Status Date / Time No Known Allergies Allergy Verified 11/16/16 18:19 Review of Systems ROS Statement: Those systems with pertinent positive or pertinent negative responses have been documented in the HPI. ROS Other: All systems not noted in ROS Statement are negative. Constitutional: Reports: fever (Subjective), chills (Subjective) Eyes: Denies: eye pain, vision change ENT: Denies: ear pain, throat pain Respiratory: Denies: cough, dyspnea Cardiovascular: Denies: chest pain, palpitations, syncope Endocrine: Denies: fatigue, polydipsia, polyuria Gastrointestinal: Reports: nausea. Denies: abdominal pain, vomiting Genitourinary: Reports: frequency (Increased). Denies: urgency, dysuria, hematuria Musculoskeletal: Denies: back pain, joint swelling Skin: Denies: rash, lesions Neurological: Denies: headache, weakness Psychiatric: Denies: anxiety, depression Hematological/Lymphatic: Denies: easy bleeding, easy bruising Past Medical History Past Medical History: CVA/TIA, Diabetes Mellitus, GERD/Reflux, Hypertension, Rheumatoid Arthritis (RA), Sleep Apnea/CPAP/BIPAP Additional Past Medical History / Comment(s): kidney failure, broken Lt foot 2011, stroke 2004, vertigo, neck pain History of Any Multi-Drug Resistant Organisms: None Reported Past Surgical History: Breast Surgery Additional Past Surgical History / Comment(s): breast biopsy, gastric sleeve , colonoscopy 04/14/14 Past Anesthesia/Blood Transfusion Reactions: Motion Sickness Past Psychological History: Depression Smoking Status: Never smoker Past Alcohol Use History: Rare Past Drug Use History: None Reported - Past Family History Mother Family Medical History: Diabetes Mellitus Additional Family Medical History / Comment(s): heart attack, Brother of lung cancer 04/19/14 Father Family Medical History: Cancer Additional Family Medical History / Comment(s): lung cancer Brother(s) Family Medical History: Cancer Additional Family Medical History / Comment(s): LUNG General Exam Limitations: no limitations General appearance: alert, in no apparent distress Head exam: Present: atraumatic, normocephalic, normal inspection Eye exam: Present: normal appearance, PERRL, EOMI. Absent: scleral icterus, conjunctival injection, periorbital swelling ENT exam: Present: normal exam, mucous membranes moist Neck exam: Present: normal inspection. Absent: tenderness, meningismus, lymphadenopathy Respiratory exam: Present: normal lung sounds bilaterally. Absent: respiratory distress, wheezes, rales, rhonchi, stridor Cardiovascular Exam: Present: regular rate, normal rhythm, normal heart sounds. Absent: systolic murmur, diastolic murmur, rubs, gallop, clicks GI/Abdominal exam: Present: soft, normal bowel sounds. Absent: distended, tenderness, guarding, rebound, rigid Rectal exam: Present: deferred Extremities exam: Present: normal inspection, full ROM, normal capillary refill. Absent: tenderness, pedal edema, joint swelling, calf tenderness Back exam: Present: normal inspection Neurological exam: Present: alert, oriented X3, CN II-XII intact Psychiatric exam: Present: normal affect, normal mood Skin exam: Present: warm, dry, intact, normal color. Absent: rash Course Vital Signs 11/16/16 11/16/16 17:42 19:08 Temperature 98.5 F 97.8 F Pulse Rate 72 70 Respiratory 18 18 Rate Blood Pressure 192/98 235/106 O2 Sat by Pulse 98 98 Oximetry Medical Decision Making - Medical Decision Making 61-year-old female with past medical history as noted above presented for evaluation of generalized constitutional symptoms since last Thursday. On physical examination she is morbidly obese and her abdomen is nontender, soft, and non-peritoneal without guarding, rigidity, or rebound. She does have swelling to her lower extremities but states that this is her baseline. Lungs are clear to auscultation bilaterally. Labs revealed no significant abnormalities however her urinalysis did show a significant urinary tract infection. Patient has no drug ALLERGIES or ALLERGIC reactions and she was started on Bactrim DS. She was informed of these results and agreed with this plan of care. Urine culture sent. She was advised to follow-up with her primary care physician but return of her symptoms should worsen or persist. The patient acknowledged an understanding of this information and agreed with this plan of care. - Lab Data Result diagrams: 11/16/16 18:49 11/16/16 18:20 Lab Results 11/16/16 11/16/16 11/16/16 Range/Units 18:20 18:20 18:49 WBC 8.1 (3.8-10.6) k/uL RBC 4.38 (3.80-5.40) m/uL Hgb 13.7 (11.4-16.0) gm/dL Hct 43.6 (34.0-46.0) % MCV 99.4 (80.0-100.0) fL MCH 31.3 (25.0-35.0) pg MCHC 31.5 (31.0-37.0) g/dL RDW 13.4 (11.5-15.5) % Plt Count 236 (150-450) k/uL Neutrophils % 75 % Lymphocytes % 16 % Monocytes % 6 % Eosinophils % 2 % Basophils % 0 % Neutrophils # 6.0 (1.3-7.7) k/uL Lymphocytes # 1.3 (1.0-4.8) k/uL Monocytes # 0.5 (0-1.0) k/uL Eosinophils # 0.1 (0-0.7) k/uL Basophils # 0.0 (0-0.2) k/uL Sodium 139 (137-145) mmol/L Potassium 4.0 (3.5-5.1) mmol/L Chloride 101 (98-107) mmol/L Carbon Dioxide 27 (22-30) mmol/L Anion Gap 11 mmol/L BUN 21 H (7-17) mg/dL Creatinine 1.00 (0.52-1.04) mg/dL Est GFR (MDRD) Af Amer >60 (>60 ml/min/1.73 sqM) Est GFR (MDRD) Non-Af 56 (>60 ml/min/1.73 sqM) Glucose 236 H (74-99) mg/dL Calcium 10.1 (8.4-10.2) mg/dL Urine Color Yellow Urine Appearance Cloudy H (Clear) Urine pH 5.5 (5.0-8.0) Ur Specific [place] 1.018 (1.001-1.035) Urine Protein 2+ H (Negative) Urine Glucose (UA) 4+ H (Negative) Urine Ketones Negative (Negative) Urine Blood Small H (Negative) Urine Nitrite Negative (Negative) Urine Bilirubin Negative (Negative) Urine Urobilinogen <2.0 (<2.0) mg/dL Ur Leukocyte Esterase Moderate H (Negative) Urine RBC 4 (0-5) /hpf Urine WBC 17 H (0-5) /hpf Ur Squamous Epith Cells 3 (0-4) /hpf Urine Bacteria Rare H (None) /hpf Hyaline Casts 7 H (0-2) /lpf Urine Mucus Rare H (None) /hpf Disposition Clinical Impression: UTI (urinary tract infection) Disposition: HOME SELF-CARE Condition: Stable Instructions: Urinary Tract Infection in Women (ED) Additional Instructions: Please use medication as discussed. Please follow up with family doctor if symptoms have not improved over the next two days. Please return to the emergency room if your symptoms increase or worsen or for any other concerns. Prescriptions: Sulfamethox-Tmp 800-160Mg [Bactrim DS 800-160 mg] 1 tab PO Q12HR #10 tab Referrals: Mere Rodriguez DO [Primary Care Provider] - 1-2 days Time of Disposition: 19:09
[2016-11-16] MEDS ORDERED: METOPROLOL TARTRATE 25 MG TAB PO STA (19:24)
[2016-11-16 20:13] VITALS: BP 192/87
== END 2016-11-16 20:18 | disposition home or self-care (01) ==
LOC: EC 17:14
DX: N39.0 Urinary tract infection, site not specified (principal); I10 Essential (primary) hypertension; F32.9 Major depressive disorder, single episode, unspecified; M06.9 Rheumatoid arthritis, unspecified; E11.9 Type 2 diabetes mellitus without complications; E66.01 Morbid (severe) obesity due to excess calories; Z68.41 Body mass index [BMI] 40.0-44.9, adult; Z86.73 Personal history of transient ischemic attack (TIA), and cerebral infarction without residual deficits; Z79.02 Long term (current) use of antithrombotics/antiplatelets; Z79.4 Long term (current) use of insulin; Z79.899 Other long term (current) drug therapy
CPT/HCPCS: 36415; 80048; 81001; 85025; 87086; 99283

== ENCOUNTER 2018-04-06 01:50 | Inpatient (IN) | payer MEDICARE ==
[2018-04-06] MEDS ORDERED: ACETAMINOPHEN TAB 500 MG TAB PO STA (01:53)
[2018-04-06] MEDS ORDERED: VANCOMYCIN IV PER PHARMACY 1 EACH MISC MISCELLANE PRN (02:32)
[2018-04-06] MEDS ORDERED: CEFEPIME 1 GM in SODIUM CHLORIDE 0.9% 50 ML IVPB STA (02:32)
[2018-04-06] MEDS ORDERED: VANCOMYCIN 2,000 MG in SODIUM CHLORIDE 0.9% 500 ML 500 ML IVPB STA (02:34)
--- NOTE | 2018-04-06 02:43 | ED ---
General Adult HPI - General Chief complaint: Fall Stated complaint: Fall,Fever, Hx sepsis Time Seen by Provider: 04/06/18 01:53 Source: patient, family, EMS Mode of arrival: EMS Limitations: altered mental status, physical limitation - History of Present Illness Initial comments: Alma is a morbidly obese 62-year-old female who is brought to the ED today via EMS for evaluation. Patient's reports that he has been gone since Thursday but the patient's daughter has been checking again with her on the phone every day. He spoke to her yesterday. reports that he came home around 11:30 PM and found that all the lights in the house were off and the patient was laying on the floor next to her bed, he is concerned that she may fallen out of bed prior to the son going down and did laying on the floor for multiple hours. Patient cannot recall when she fell. Upon EMS arrival they noted that the patient was febrile, tachycardic and hyperglycemic. - Related Data Home Medications Medication Instructions Recorded Confirmed Calcitriol 0.5 mcg PO DAILY 09/30/13 04/06/18 Clopidogrel Bisulfate [Plavix] 75 mg PO DAILY 09/30/13 04/06/18 DULoxetine HCL [Cymbalta] 60 mg PO BID 09/30/13 04/06/18 Pregabalin [Lyrica] 75 mg PO TID 01/28/16 04/06/18 Ferrous Sulfate [Iron (65 MG 325 mg PO DAILY 07/06/16 04/06/18 Elemental)] Topiramate [Topamax] 25 mg PO BID 07/06/16 04/06/18 Aspirin 81 mg PO DAILY 01/06/17 04/06/18 Atorvastatin [Lipitor] 40 mg PO HS 01/06/17 04/06/18 Insulin Glargine [Lantus] 30 unit SQ HS 01/06/17 04/06/18 Carvedilol [Coreg*] 12.5 mg PO BID 04/06/18 04/06/18 INSULIN ASPART (NovoLOG) [NovoLOG 10 unit SQ AC-LUNCH 04/06/18 04/06/18 (formulary)] INSULIN ASPART (NovoLOG) [NovoLOG 15 unit SQ AC-BID 04/06/18 04/06/18 (formulary)] INSULIN ASPART (NovoLOG) [NovoLOG See Protocol SQ ACHS 04/06/18 04/06/18 (formulary)] Ondansetron HCl [Zofran] 8 mg PO Q8H PRN 04/06/18 04/06/18 amLODIPine [Norvasc] 10 mg PO DAILY 04/06/18 04/06/18 Previous Rx's Medication Instructions Recorded oxyCODONE-APAP 10-325MG [Percocet 1 tab PO Q6H PRN #20 tab 12/02/16 10-325 mg] Allergies Allergy/AdvReac Type Severity Reaction Status Date / Time No Known Allergies Allergy Verified 04/06/18 06:51 Review of Systems ROS Statement: Those systems with pertinent positive or pertinent negative responses have been documented in the HPI. ROS Other: All systems not noted in ROS Statement are negative. 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 lt side weaker than rt" , vertigo, neck pain, mini stroke nov 2016. no cpap used. Ulcer on right great toe History of Any Multi-Drug Resistant Organisms: None Reported Past Surgical History: Breast Surgery Additional Past Surgical History / Comment(s): breast biopsy, gastric sleeve , colonoscopy 04/14/14 Past Anesthesia/Blood Transfusion Reactions: Motion Sickness Past Psychological History: Depression Smoking Status: Never smoker Past Alcohol Use History: None Reported Past Drug Use History: None Reported - Past Family History Mother Family Medical History: Diabetes Mellitus Additional Family Medical History / Comment(s): heart attack, Brother of lung cancer 04/19/14 Father Family Medical History: Cancer Additional Family Medical History / Comment(s): lung cancer Brother(s) Family Medical History: Cancer Additional Family Medical History / Comment(s): LUNG General Exam - General Exam Comments Initial Comments: Physical Exam GENERAL: Chronically ill-appearing morbidly obese Febrile HENT: Normocephalic, Atraumatic. EYES: PERRL, EOMI PULMONARY: Tachypneic CARDIOVASCULAR: Tachycardic, regular ABDOMEN: Obese, no tenderness SKIN: Skin color changes in bilateral lower extremities consistent with chronic venous stasis, right lower extremity appears darkened and is hot to the touch concern for development of cellulitis, there is a nonhealing wound on the right great toe, this is been cleaned and dressed and has a purple sealant over the wound There is small superficial lacerations over the left great toe and left second toe I suspect were sustained with the patient fell out of bed or fell Significant edema and skin breakdown under the pannus concern for in candidal infection : Deferred NEUROLOGIC: Patient is alert and oriented to self, able to identify she is in the hospital, able to identify that it is March though she is uncertain of the date states that this is her baseline MUSCULOSKELETAL: Bilateral lower extremity edema with skin changes consistent with chronic venous stasis PSYCHIATRIC: Normal psychiatric evaluation. Limitations: no limitations Limitations: altered mental status, physical limitation Course Vital Signs 04/06/18 04/06/18 04/06/18 01:54 04:50 05:45 Temperature 103.0 F H 99.5 F 99.0 F Pulse Rate 107 H 99 89 Respiratory 23 18 18 Rate Blood Pressure 185/84 131/52 121/41 O2 Sat by Pulse 96 98 100 Oximetry EKG Findings - EKG Comments: EKG Findings:: EKG obtained at 3 of 6 AM, rate is 112 rhythm is sinus tachycardia there is leftward deviation, GA intervals 162 QRS is 60 QTc is [address] elevations or depressions no evidence of acute ischemia or infarction. Procedures - Sepsis Sepsis Focused Exam #1 Sepsis Focused Exam Date: 04/06/18 Sepsis Focused Exam Time: 07:22 Sepsis Focused Exam Complete: Yes Vital Signs & RN Notes Reviewed: Yes Capillary Refill: < 2 Seconds: Fingers, Toes Peripheral Pulses: Normal: Radial (R), Radial (L) Skin Color: Normal for Patient, Erythema (Right lower extremity) Respiratory Exam: normal lung sounds Cardiovascular Exam: regular rate Medical Decision Making - Medical Decision Making Patient presented via EMS patient was seen and evaluated immediately upon arrival Patient is noted to be febrile, tachycardic appears quite ill A sepsis workup was initiated along with a creatinine kinase to assist for possible rhabdomyolysis given that the patient has been on the ground for unknown period of time in addition cardiac markers influenza swab were ordered IV fluids and Tylenol were ordered Labs resulting with multiple abnormalities, creatinine kinase is significantly elevated lactic acid is elevated patient is noted to have a pH of 7.25 at this time I feel the patient has sepsis secondary to cellulitis of her lower extremity Patient care was discussed with the admitting physician Dr. Crawford per patient's primary care physician Dr. Moreno's preference. He accepts the admission with consults Dr. Ragland and Dr. Manuel. Admission orders were placed. - Lab Data Result diagrams: 04/06/18 02:20 04/06/18 02:20 Lab Results 04/06/18 04/06/18 04/06/18 Range/Units 02:20 02:20 02:20 WBC 9.5 (3.8-10.6) k/uL RBC 3.89 (3.80-5.40) m/uL Hgb 11.8 (11.4-16.0) gm/dL Hct 38.4 (34.0-46.0) % MCV 98.6 (80.0-100.0) fL MCH 30.3 (25.0-35.0) pg MCHC 30.7 L (31.0-37.0) g/dL RDW 13.9 (11.5-15.5) % Plt Count 184 (150-450) k/uL Neutrophils % (Manual) 80 % Band Neutrophils % 16 % Lymphocytes % (Manual) 2 % Monocytes % (Manual) 2 % Neutrophils # (Manual) 9.10 H (1.3-7.7) k/uL Lymphocytes # (Manual) 0.19 L (1.0-4.8) k/uL Monocytes # (Manual) 0.19 (0-1.0) k/uL Nucleated RBCs 0 (0-0) /100 WBC Manual Slide Review Performed Hypochromasia Marked PT (9.0-12.0) sec INR (<1.2) APTT (22.0-30.0) sec VBG pH 7.25 L (7.31-7.41) VBG pCO2 41 (37-51) mmHg VBG HCO3 17 L (24-28) mmol/L Sodium 139 (137-145) mmol/L Potassium 4.1 (3.5-5.1) mmol/L Chloride 111 H (98-107) mmol/L Carbon Dioxide 17 L (22-30) mmol/L Anion Gap 11 mmol/L BUN 26 H (7-17) mg/dL Creatinine 1.32 H (0.52-1.04) mg/dL Est GFR (CKD-EPI)AfAm 50 (>60 ml/min/1.73 sqM) Est GFR (CKD-EPI)NonAf 43 (>60 ml/min/1.73 sqM) Glucose 381 H (74-99) mg/dL POC Glucose (mg/dL) (75-99) mg/dL POC Glu Welt St[employer]er ID Lactic Ac Sepsis Rflx Plasma Lactic Acid Flex (0.7-2.0) mmol/L Calcium 7.7 L (8.4-10.2) mg/dL Total Bilirubin 0.9 (0.2-1.3) mg/dL AST 33 (14-36) U/L ALT 17 (9-52) U/L Alkaline Phosphatase 94 (38-126) U/L Creatine Kinase 1265 H* (30-135) U/L CK-MB (CK-2) (0.0-2.4) ng/mL Troponin I (0.000-0.034) ng/mL Total Protein 6.0 L (6.3-8.2) g/dL Albumin 2.8 L (3.5-5.0) g/dL Acetone, Qual Negative (Negative) Influenza Type A RNA (Not Detectd) Influenza Type B (PCR) (Not Detectd) 04/06/18 04/06/18 04/06/18 Range/Units 02:20 02:20 02:20 WBC (3.8-10.6) k/uL RBC (3.80-5.40) m/uL Hgb (11.4-16.0) gm/dL Hct (34.0-46.0) % MCV (80.0-100.0) fL MCH (25.0-35.0) pg MCHC (31.0-37.0) g/dL RDW (11.5-15.5) % Plt Count (150-450) k/uL Neutrophils % (Manual) % Band Neutrophils % % Lymphocytes % (Manual) % Monocytes % (Manual) % Neutrophils # (Manual) (1.3-7.7) k/uL Lymphocytes # (Manual) (1.0-4.8) k/uL Monocytes # (Manual) (0-1.0) k/uL Nucleated RBCs (0-0) /100 WBC Manual Slide Review Hypochromasia PT 11.5 (9.0-12.0) sec INR 1.1 (<1.2) APTT (22.0-30.0) sec VBG pH (7.31-7.41) VBG pCO2 (37-51) mmHg VBG HCO3 (24-28) mmol/L Sodium (137-145) mmol/L Potassium (3.5-5.1) mmol/L Chloride (98-107) mmol/L Carbon Dioxide (22-30) mmol/L Anion Gap mmol/L BUN (7-17) mg/dL Creatinine (0.52-1.04) mg/dL Est GFR (CKD-EPI)AfAm (>60 ml/min/1.73 sqM) Est GFR (CKD-EPI)NonAf (>60 ml/min/1.73 sqM) Glucose (74-99) mg/dL POC Glucose (mg/dL) (75-99) mg/dL POC Glu Welt [employer]er ID Lactic Ac Sepsis Rflx Plasma Lactic Acid Flex 3.5 H* (0.7-2.0) mmol/L Calcium (8.4-10.2) mg/dL Total Bilirubin (0.2-1.3) mg/dL AST (14-36) U/L ALT (9-52) U/L Alkaline Phosphatase (38-126) U/L Creatine Kinase (30-135) U/L CK-MB (CK-2) 3.3 H (0.0-2.4) ng/mL Troponin I <0.012 (0.000-0.034) ng/mL Total Protein (6.3-8.2) g/dL Albumin (3.5-5.0) g/dL Acetone, Qual (Negative) Influenza Type A RNA (Not Detectd) Influenza Type B (PCR) (Not Detectd) 04/06/18 04/06/18 04/06/18 Range/Units 02:20 02:59 03:04 WBC (3.8-10.6) k/uL RBC (3.80-5.40) m/uL Hgb (11.4-16.0) gm/dL Hct (34.0-46.0) % MCV (80.0-100.0) fL MCH (25.0-35.0) pg MCHC (31.0-37.0) g/dL RDW (11.5-15.5) % Plt Count (150-450) k/uL Neutrophils % (Manual) % Band Neutrophils % % Lymphocytes % (Manual) % Monocytes % (Manual) % Neutrophils # (Manual) (1.3-7.7) k/uL Lymphocytes # (Manual) (1.0-4.8) k/uL Monocytes # (Manual) (0-1.0) k/uL Nucleated RBCs (0-0) /100 WBC Manual Slide Review Hypochromasia PT (9.0-12.0) sec INR (<1.2) APTT 24.7 (22.0-30.0) sec VBG pH (7.31-7.41) VBG pCO2 (37-51) mmHg VBG HCO3 (24-28) mmol/L Sodium (137-145) mmol/L Potassium (3.5-5.1) mmol/L Chloride (98-107) mmol/L Carbon Dioxide (22-30) mmol/L Anion Gap mmol/L BUN (7-17) mg/dL Creatinine (0.52-1.04) mg/dL Est GFR (CKD-EPI)AfAm (>60 ml/min/1.73 sqM) Est GFR (CKD-EPI)NonAf (>60 ml/min/1.73 sqM) Glucose (74-99) mg/dL POC Glucose (mg/dL) 438 H (75-99) mg/dL POC Glu Welt [employer]er ID [employer] Lactic Ac Sepsis Rflx Y Plasma Lactic Acid Flex (0.7-2.0) mmol/L Calcium (8.4-10.2) mg/dL Total Bilirubin (0.2-1.3) mg/dL AST (14-36) U/L ALT (9-52) U/L Alkaline Phosphatase (38-126) U/L Creatine Kinase (30-135) U/L CK-MB (CK-2) (0.0-2.4) ng/mL Troponin I (0.000-0.034) ng/mL Total Protein (6.3-8.2) g/dL Albumin (3.5-5.0) g/dL Acetone, Qual (Negative) Influenza Type A RNA (Not Detectd) Influenza Type B (PCR) (Not Detectd) 04/06/18 Range/Units 03:20 WBC (3.8-10.6) k/uL RBC (3.80-5.40) m/uL Hgb (11.4-16.0) gm/dL Hct (34.0-46.0) % MCV (80.0-100.0) fL MCH (25.0-35.0) pg MCHC (31.0-37.0) g/dL RDW (11.5-15.5) % Plt Count (150-450) k/uL Neutrophils % (Manual) % Band Neutrophils % % Lymphocytes % (Manual) % Monocytes % (Manual) % Neutrophils # (Manual) (1.3-7.7) k/uL Lymphocytes # (Manual) (1.0-4.8) k/uL Monocytes # (Manual) (0-1.0) k/uL Nucleated RBCs (0-0) /100 WBC Manual Slide Review Hypochromasia PT (9.0-12.0) sec INR (<1.2) APTT (22.0-30.0) sec VBG pH (7.31-7.41) VBG pCO2 (37-51) mmHg VBG HCO3 (24-28) mmol/L Sodium (137-145) mmol/L Potassium (3.5-5.1) mmol/L Chloride (98-107) mmol/L Carbon Dioxide (22-30) mmol/L Anion Gap mmol/L BUN (7-17) mg/dL Creatinine (0.52-1.04) mg/dL Est GFR (CKD-EPI)AfAm (>60 ml/min/1.73 sqM) Est GFR (CKD-EPI)NonAf (>60 ml/min/1.73 sqM) Glucose (74-99) mg/dL POC Glucose (mg/dL) (75-99) mg/dL POC Glu Welt [employer] Cleaner ID Lactic Ac Sepsis Rflx Plasma Lactic Acid Flex (0.7-2.0) mmol/L Calcium (8.4-10.2) mg/dL Total Bilirubin (0.2-1.3) mg/dL AST (14-36) U/L ALT (9-52) U/L Alkaline Phosphatase (38-126) U/L Creatine Kinase (30-135) U/L CK-MB (CK-2) (0.0-2.4) ng/mL Troponin I (0.000-0.034) ng/mL Total Protein (6.3-8.2) g/dL Albumin (3.5-5.0) g/dL Acetone, Qual (Negative) Influenza Type A RNA Not Detected (Not Detectd) Influenza Type B (PCR) Not Detected (Not Detectd) Disposition Clinical Impression: Sepsis, Cellulitis, Lactic acidosis, Rhabdomyolysis Disposition: ADMITTED IP TO THIS HOSP Condition: Serious
[2018-04-06] MEDS: SODIUM CHLORIDE 0.9% 500 ML 500 ML IV SCH ×4 (02:51→04:33)
[2018-04-06 02:53] LABS: INR 1.1 (<1.2); Prothrombin Time 11.5 sec (9.0-12.0)
[2018-04-06 02:54] LABS: VBG PH 7.25 (7.31-7.41)
[2018-04-06 02:55] LABS: ALT 17 U/L (9-52); AST 33 U/L (14-36); Albumin 2.8 g/dL (3.5-5.0); Alkaline Phosphatase 94 U/L (38-126); Anion Gap 11 mmol/L; Blood Urea Nitrogen 26 mg/dL (7-17); Calcium 7.7 mg/dL (8.4-10.2); Carbon Dioxide 17 mmol/L (22-30); Chloride 111 mmol/L (98-107); Glucose 381 mg/dL (74-99); Potassium 4.1 mmol/L (3.5-5.1); Sodium 139 mmol/L (137-145); Total Bilirubin 0.9 mg/dL (0.2-1.3)
[2018-04-06 02:58] LABS: HCT 38.4 % (34.0-46.0); HGB 11.8 gm/dL (11.4-16.0); Hypochromasia Marked; MCH 30.3 pg (25.0-35.0); MCHC 30.7 g/dL (31.0-37.0); MCV 98.6 fL (80.0-100.0); Mean Platelet Volume 6.6; Platelet Count 184 k/uL (150-450); RBC 3.89 m/uL (3.80-5.40); RDW 13.9 % (11.5-15.5); WBC 9.5 k/uL (3.8-10.6)
--- NOTE | 2018-04-06 02:58 | XR ---
EXAM: XR Chest, 1 View CLINICAL HISTORY: ITS.REASON XR Reason: Fever TECHNIQUE: Frontal view of the chest. COMPARISON: Chest radiograph on 11/25/2016 FINDINGS: Hardware: None. Lungs/pleura: Interstitial and hazy opacities throughout the lungs. Low lung volumes. Possible trace left pleural effusion. Heart/mediastinum: Normal. No cardiomegaly. Soft tissues: Unremarkable. Bones: No acute fracture. Degenerative changes of the visualized right acromioclavicular joint. Upper abdomen: Normal. IMPRESSION: Interstitial and hazy opacities throughout the lungs may represent pulmonary vasculature congestion and pulmonary edema. Component of infectious/inflammatory process is not excluded.
[2018-04-06 03:02] LABS: Glucose,Whole Blood 438 mg/dL (75-99)
[2018-04-06 03:03] LABS: Creatine Kinase 1265 U/L (30-135)
[2018-04-06 03:07] LABS: Creatine Kinase MB 3.3 ng/mL (0.0-2.4); Troponin I <0.012 ng/mL (0.000-0.034)
--- NOTE | 2018-04-06 03:11 | CT ---
EXAM: CT Head Without Intravenous Contrast CLINICAL HISTORY: ITS.REASON CT Reason: Pain TECHNIQUE: Axial computed tomography images of the head/brain without intravenous contrast. CTDI is 49.1 mGy and DLP is 1141 mGy-cm. This CT exam was performed using one or more of the following dose reduction techniques: automated exposure control, adjustment of the mA and/or kV according to patient size, and/or use of iterative reconstruction technique. COMPARISON: MRI brain on 11/25/2016. CT head on 01/06/2017. FINDINGS: Brain: No acute infarct or hemorrhage identified. No extra-axial fluid collection. No mass effect or midline shift. Stable areas of hypoattenuation in the supratentorial white matter likely represent chronic small vessel ischemic changes. Ventricles and sulci: Stable prominence of the ventricles and sulci is likely secondary to cerebral volume loss. Skull: Normal. No bony lesion or fracture. Subcutaneous tissues: Normal. Sinuses: Mild mucosal thickening in the maxillary sinuses. Mild mucosal thickening in the right sphenoid sinus. Mastoid air cells: Small amount fluid within sclerotic inferior left mastoid air cells. Orbits: Bilateral lens implants. Other: Atherosclerotic calcifications in the intracranial vasculature. IMPRESSION: 1. No acute intracranial abnormality. 2. Stable chronic small vessel ischemic changes and cerebral volume loss.
[2018-04-06] MEDS ORDERED: NALOXONE 0.4 MG/ML 1 ML VIAL IV PRN (03:12)
[2018-04-06] MEDS ORDERED: IBUPROFEN 400 MG TAB PO PRN (03:12)
[2018-04-06] MEDS ORDERED: INSULIN REGULAR 100 UNIT/ML VIAL SQ ONE ×2 (03:16→06:03)
[2018-04-06 03:30] LABS: Band Neutrophils % 16 %; Lymphocytes # (M) 0.19 k/uL (1.0-4.8); Monocytes # (M) 0.19 k/uL (0-1.0); Neutrophils % (M) 80 %; Nucleated Red Blood Cells 0 /100 WBC (0-0); Total Cells Counted 200
[2018-04-06] MEDS: SODIUM CHLORIDE 0.9% 1,000 ML IV SCH ×3 (04:32→17:08)
[2018-04-06 05:24] LABS: Appearance,Urine Cloudy (Clear); Bilirubin,Urine Negative (Negative); Blood,Urine Moderate (Negative); Color,Urine Yellow; Glucose,Urine (UA) 3+ (Negative); Hyaline Casts,Urine 12 /lpf (0-2); Ketones,Urine Trace (Negative); Leukocyte Esterase,Urine Negative (Negative); Mucus,Urine Rare /hpf; Nitrite,Urine Negative (Negative); Protein,Urine 2+ (Negative); RBC,Urine 4 /hpf (0-5); Specific Gravity,Urine 1.016 (1.001-1.035); Squamous Epithelial Cell,Urine 2 /hpf (0-4); Urobilinogen,Urine <2.0 mg/dL (<2.0)
[2018-04-06 05:46] LABS: Glucose,Whole Blood 364 mg/dL (75-99)
[2018-04-06 07:24] LABS: HCT 36.6 % (34.0-46.0); Hypochromasia Marked; MCH 30.1 pg (25.0-35.0); MCHC 30.1 g/dL (31.0-37.0); MCV 100.2 fL (80.0-100.0); Mean Platelet Volume 6.8; Platelet Count 238 k/uL (150-450); RBC 3.66 m/uL (3.80-5.40); RDW 13.9 % (11.5-15.5); WBC 16.5 k/uL (3.8-10.6)
[2018-04-06 07:25] LABS: Albumin 2.8 g/dL (3.5-5.0); Calcium 7.9 mg/dL (8.4-10.2); Magnesium 1.4 mg/dL (1.6-2.3); Potassium 4.3 mmol/L (3.5-5.1); Total Bilirubin 0.6 mg/dL (0.2-1.3)
[2018-04-06 08:00] LABS: Band Neutrophils % 30 %; Lymphocytes # (M) 0.66 k/uL (1.0-4.8); Metamyelocytes # (M) 2.15 k/uL (0); Metamyelocytes % 13 %; Myelocytes % 3 %; Neutrophils % (M) 50 %; Nucleated Red Blood Cells 0 /100 WBC (0-0); Total Cells Counted 200
[2018-04-06 08:01] LABS: Toxic Granulation Present
[2018-04-06] MEDS: HEPARIN SODIUM,PORCINE 5,000 UNIT/ML 1 ML VIAL SQ SCH ×3 (08:02→23:41)
--- NOTE | 2018-04-06 09:28 | P.CONS ---
History of Present Illness - Reason for Consult Consult date: 04/06/18 - History of Present Illness This is a 62-year-old female last seen in January 2016 for cellulitis of the left leg with a long-standing history of obesity as well as rheumatoid arthritis, uncontrolled diabetes mellitus. Patient states that she has had fever, chills, swelling on her right side of her face along with her right ear and a sore throat for about one week. Her went to [facility] and was gone for 4 days. He came home yesterday evening around 11:30 and found her on the floor next to the bed and appeared that she had fallen. He calculated that she must have been on the floor for about 5 hours. Initially, she was barely able to talk and there was some mental status changes. She had extreme weakness, injured the left toes but no other injury was noted. Patient did have a life alert on but apparently did not use it. He checked her blood sugar was 326. He also gives history that the patient has a chronic diabetic ulcer to the right great toe that has been under the care of Dr. Chiu and Shane for the past 6 months with no improvement. Patient apply some type of ointment daily and wraps it. Dr. Chiu does debridements. Patient also has wounds to the left lower leg from scratching. She has chronic lymphedema but the right leg is brighter red now than normal. Patient thinks her last hemoglobin A1c was in the eights down from 9+. Patient follows with Dr. Selwyn crowley for her diabetes. Patient also follows with Dr. Rocha for previous stroke with no residuals. Her contacted EMS and patient was brought in to [facility] emergency center. Temperature 103, heart rate 107, blood pressure 185/84 and pulse ox 96%. White count is 16.5, creatinine 1.67, blood sugars running in the 300s and 400s, initial lactic acid 3.4 with repeat of 4.7, CK 1265. Troponin was normal. Albumin 2.8. Urinalysis was cloudy, blood moderate, ketones trace. Influenza testing negative. Acetone negative. CAT scan of the brain showed no acute intracranial abnormality with stable chronic small vessel ischemic change. Chest x-ray showed pulmonary vascular congestion, infectious or inflammatory process not excluded. Patient was provided 2 L of IV fluid, ceftriaxone, cefepime, vancomycin, Tylenol and insulin and admitted to the cardiac stepdown unit. Patient is currently waiting in the ER for a bed on the unit. Review of Systems All systems: negative Constitutional: Reports chills, Reports fatigue, Reports fever, Reports lethargy , Reports malaise, Reports poor appetite, Reports weakness Eyes: denies blurred vision, denies pain Ears, nose, mouth and throat: Reports sore throat, Denies dental pain, Denies dysphagia, Denies headache, Denies nasal congestion, Denies nasal discharge, Denies vertigo Cardiovascular: Reports edema, Reports leg edema, Denies chest pain, Denies shortness of breath, Denies syncope Respiratory: Denies cough, Denies cough with sputum, Denies dyspnea, Denies excessive sputum, Denies hemoptysis, Denies home oxygen, Denies wheezing Gastrointestinal: Denies abdominal pain, Denies diarrhea, Denies nausea, Denies vomiting Genitourinary: Denies dysuria, Denies hematuria, Denies urgency, Denies urinary frequency Musculoskeletal: Reports muscle weakness, Denies myalgias Integumentary: Reports color changes, Reports darkening of skin, Reports wounds , Denies pruritus, Denies rash Neurological: Reports change in mentation, Reports change in speech, Denies head injury, Denies headaches, Denies numbness, Denies seizures, Denies weakness Psychiatric: Denies anxiety, Denies depression Endocrine: Denies fatigue, Denies weight change Past Medical History Past Medical History: CVA/TIA, Diabetes Mellitus, GERD/Reflux, Hypertension, Renal Disease, Rheumatoid Arthritis (RA), Sleep Apnea/CPAP/BIPAP Additional Past Medical History / Comment(s): "ckd stage lll", broken Lt foot 2011-no sx, stroke 2004 affected non dominant lt side . lt side weaker than rt" , vertigo, neck pain, mini stroke nov 2016. no cpap used. Ulcer on right great toe History of Any Multi-Drug Resistant Organisms: None Reported Past Surgical History: Breast Surgery Additional Past Surgical History / Comment(s): breast biopsy, gastric sleeve , colonoscopy 04/14/14 Past Anesthesia/Blood Transfusion Reactions: Motion Sickness Past Psychological History: Depression Additional Psychological History / Comment(s): and lives with family home with her . 2 adult children. No tobacco or alcohol use. No experience. No international travel. Pet cats at home they are not new. Used to work in a care of handicapped persons Smoking Status: Never smoker Past Alcohol Use History: None Reported Past Drug Use History: None Reported - Past Family History Mother Family Medical History: Diabetes Mellitus Additional Family Medical History / Comment(s): heart attack, Brother of lung cancer 04/19/14 Father Family Medical History: Cancer Additional Family Medical History / Comment(s): lung cancer Brother(s) Family Medical History: Cancer Additional Family Medical History / Comment(s): LUNG Medications and Allergies Home Medications Medication Instructions Recorded Confirmed Type Calcitriol 0.5 mcg PO DAILY 09/30/13 04/06/18 History Clopidogrel Bisulfate [Plavix] 75 mg PO DAILY 09/30/13 04/06/18 History DULoxetine HCL [Cymbalta] 60 mg PO BID 09/30/13 04/06/18 History Pregabalin [Lyrica] 75 mg PO TID 01/28/16 04/06/18 History Ferrous Sulfate [Iron (65 MG 325 mg PO DAILY 07/06/16 04/06/18 History Elemental)] Topiramate [Topamax] 25 mg PO BID 07/06/16 04/06/18 History oxyCODONE-APAP 10-325MG [Percocet 1 tab PO Q6H PRN #20 tab 12/02/16 04/06/18 Rx 10-325 mg] Aspirin 81 mg PO DAILY 01/06/17 04/06/18 History Atorvastatin [Lipitor] 40 mg PO HS 01/06/17 04/06/18 History Insulin Glargine [Lantus] 30 unit SQ HS 01/06/17 04/06/18 History Carvedilol [Coreg*] 12.5 mg PO BID 04/06/18 04/06/18 History INSULIN ASPART (NovoLOG) [NovoLOG 10 unit SQ AC-LUNCH 04/06/18 04/06/18 History (formulary)] INSULIN ASPART (NovoLOG) [NovoLOG 15 unit SQ AC-BID 04/06/18 04/06/18 History (formulary)] INSULIN ASPART (NovoLOG) [NovoLOG See Protocol SQ ACHS 04/06/18 04/06/18 History (formulary)] Ondansetron HCl [Zofran] 8 mg PO Q8H PRN 04/06/18 04/06/18 History amLODIPine [Norvasc] 10 mg PO DAILY 04/06/18 04/06/18 History Allergies Allergy/AdvReac Type Severity Reaction Status Date / Time No Known Allergies Allergy Verified 04/06/18 06:51 Physical Exam Vitals: Vital Signs Temp Pulse Resp BP Pulse Ox 04/06/18 05:45 99.0 F 89 18 121/41 100 04/06/18 04:50 99.5 F 99 18 131/52 98 04/06/18 01:54 103.0 F H 107 H 23 185/84 96 Intake and Output 04/05/18 04/06/18 04/06/18 22:59 06:59 14:59 Other: Weight 137.438 kg GEN: Morbidly obese 62-year-old woman sitting up on the ER stretcher. She is currently afebrile HEENT: Anicteric conjunctiva are pink and moist nasal mucosa grossly intact without significant lesions, there is no thrush. Full denture. There is mild erythema and edema to the right side of her face and significant edema and redness to the right ear. Auditory canal seems to be without internal edema or erythema. No lesion noted Neck: The neck is supple without significant lymphadenopathy or thyromegaly. Lungs: Good bilateral air entry without significant crackles or wheezing. There is no significant bronchial sounds. Heart: Regular rate and rhythm with an audible S1-S2, no S3 no S4. There is no significant murmur. Abdomen: Obese, Positive bowel sounds soft and nontender without palpable masses or organomegaly. There was no guarding or rebound. Erythema under her abdominal fold. Extremities: The upper extremities have excellent pulses they are symmetric, no significant petechiae or telangiectasia. No splinter hemorrhages were noted. The bilateral extremities show evidence of the chronic lower extremity edema and lymphedema. To the right great toe there is a chronic diabetic ulcer with scant amount of drainage. No fall over. On the right lower extremity there is significant edema and erythema with warmth. Left lower extremity has linear- type lesions to the lower pretibial area. Abrasions to the toes on the left foot. Neuro: Awake alert oriented to person place and time. There are no acute gross focal sensory motor deficits. 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 Results Results: Laboratory Results WBC 16.5 k/uL (3.8-10.6) H 04/06/18 07:00 RBC 3.66 m/uL (3.80-5.40) L 04/06/18 07:00 Hgb 11.0 gm/dL (11.4-16.0) L 04/06/18 07:00 Hct 36.6 % (34.0-46.0) 04/06/18 07:00 MCV 100.2 fL (80.0-100.0) H 04/06/18 07:00 MCH 30.1 pg (25.0-35.0) 04/06/18 07:00 MCHC 30.1 g/dL (31.0-37.0) L 04/06/18 07:00 RDW 13.9 % (11.5-15.5) 04/06/18 07:00 Plt Count 238 k/uL (150-450) 04/06/18 07:00 Neutrophils % (Manual) 50 % 04/06/18 07:00 Band Neutrophils % 30 % 04/06/18 07:00 Lymphocytes % (Manual) 4 % 04/06/18 07:00 Monocytes % (Manual) 3 % 04/06/18 07:00 Metamyelocytes % 13 % 04/06/18 07:00 Myelocytes % 3 % 04/06/18 07:00 Neutrophils # (Manual) 13.20 k/uL (1.3-7.7) H 04/06/18 07:00 Lymphocytes # (Manual) 0.66 k/uL (1.0-4.8) L 04/06/18 07:00 Monocytes # (Manual) 0.50 k/uL (0-1.0) 04/06/18 07:00 Metamyelocytes # (Man) 2.15 k/uL (0) H 04/06/18 07:00 Myelocytes # (Manual) 0.50 k/uL (0) H 04/06/18 07:00 Nucleated RBCs 0 /100 WBC (0-0) 04/06/18 07:00 Manual Slide Review Performed 04/06/18 07:00 Toxic Granulation Present 04/06/18 07:00 Hypochromasia Marked 04/06/18 07:00 PT 11.5 sec (9.0-12.0) 04/06/18 02:20 INR 1.1 (<1.2) 04/06/18 02:20 APTT 24.7 sec (22.0-30.0) 04/06/18 02:20 VBG pH 7.25 (7.31-7.41) L 04/06/18 02:20 VBG pCO2 41 mmHg (37-51) 04/06/18 02:20 VBG HCO3 17 mmol/L (24-28) L 04/06/18 02:20 Sodium 139 mmol/L (137-145) 04/06/18 07:00 Potassium 4.3 mmol/L (3.5-5.1) 04/06/18 07:00 Chloride 108 mmol/L (98-107) H 04/06/18 07:00 Carbon Dioxide 19 mmol/L (22-30) L 04/06/18 07:00 Anion Gap 12 mmol/L 04/06/18 07:00 BUN 30 mg/dL (7-17) H 04/06/18 07:00 Creatinine 1.67 mg/dL (0.52-1.04) H 04/06/18 07:00 Est GFR (CKD-EPI)AfAm 37 (>60 ml/min/1.73 sqM) 04/06/18 07:00 Est GFR (CKD-EPI)NonAf 32 (>60 ml/min/1.73 sqM) 04/06/18 07:00 Glucose 300 mg/dL (74-99) H 04/06/18 07:00 POC Glucose (mg/dL) 364 mg/dL (75-99) H 04/06/18 05:45 POC Glu Office Services Manager ID Pepper Pavon 04/06/18 05:45 Lactic Ac Sepsis Rflx Y 04/06/18 03:04 Plasma Lactic Acid Flex 4.7 mmol/L (0.7-2.0) H* 04/06/18 07:00 Calcium 7.9 mg/dL (8.4-10.2) L 04/06/18 07:00 Magnesium 1.4 mg/dL (1.6-2.3) L 04/06/18 07:00 Total Bilirubin 0.6 mg/dL (0.2-1.3) 04/06/18 07:00 AST 63 U/L (14-36) H 04/06/18 07:00 ALT 19 U/L (9-52) 04/06/18 07:00 Alkaline Phosphatase 81 U/L (38-126) 04/06/18 07:00 Creatine Kinase 1265 U/L (30-135) H* 04/06/18 02:20 CK-MB (CK-2) 3.3 ng/mL (0.0-2.4) H 04/06/18 02:20 Troponin I <0.012 ng/mL (0.000-0.034) 04/06/18 02:20 Total Protein 6.0 g/dL (6.3-8.2) L 04/06/18 07:00 Albumin 2.8 g/dL (3.5-5.0) L 04/06/18 07:00 Urine Color Yellow 04/06/18 05:05 Urine Appearance Cloudy (Clear) H 04/06/18 05:05 Urine pH 5.0 (5.0-8.0) 04/06/18 05:05 Ur Specific [place] 1.016 (1.001-1.035) 04/06/18 05:05 Urine Protein 2+ (Negative) H 04/06/18 05:05 Urine Glucose (UA) 3+ (Negative) H 04/06/18 05:05 Urine Ketones Trace (Negative) H 04/06/18 05:05 Urine Blood Moderate (Negative) H 04/06/18 05:05 Urine Nitrite Negative (Negative) 04/06/18 05:05 Urine Bilirubin Negative (Negative) 04/06/18 05:05 Urine Urobilinogen <2.0 mg/dL (<2.0) 04/06/18 05:05 Ur Leukocyte Esterase Negative (Negative) 04/06/18 05:05 Urine RBC 4 /hpf (0-5) 04/06/18 05:05 Ur Squamous Epith Cells 2 /hpf (0-4) 04/06/18 05:05 Hyaline Casts 12 /lpf (0-2) H 04/06/18 05:05 Urine Mucus Rare /hpf (None) H 04/06/18 05:05 Acetone, Qual Negative (Negative) 04/06/18 02:20 Influenza Type A RNA Not Detected (Not Detectd) 04/06/18 03:20 Influenza Type B (PCR) Not Detected (Not Detectd) 04/06/18 03:20 CBC & Chem 7: 04/06/18 07:00 04/06/18 07:00 Labs: Abnormal Lab Results - Last 24 Hours (Table) 04/06/18 04/06/18 04/06/18 Range/Units 02:20 02:20 02:20 WBC (3.8-10.6) k/uL RBC (3.80-5.40) m/uL Hgb (11.4-16.0) gm/dL MCV (80.0-100.0) fL MCHC 30.7 L (31.0-37.0) g/dL Neutrophils # (Manual) 9.10 H (1.3-7.7) k/uL Lymphocytes # (Manual) 0.19 L (1.0-4.8) k/uL Metamyelocytes # (Man) (0) k/uL Myelocytes # (Manual) (0) k/uL VBG pH 7.25 L (7.31-7.41) VBG HCO3 17 L (24-28) mmol/L Chloride 111 H (98-107) mmol/L Carbon Dioxide 17 L (22-30) mmol/L BUN 26 H (7-17) mg/dL Creatinine 1.32 H (0.52-1.04) mg/dL Glucose 381 H (74-99) mg/dL POC Glucose (mg/dL) (75-99) mg/dL Plasma Lactic Acid Flex (0.7-2.0) mmol/L Calcium 7.7 L (8.4-10.2) mg/dL Magnesium (1.6-2.3) mg/dL AST (14-36) U/L Creatine Kinase 1265 H* (30-135) U/L CK-MB (CK-2) (0.0-2.4) ng/mL Total Protein 6.0 L (6.3-8.2) g/dL Albumin 2.8 L (3.5-5.0) g/dL Urine Appearance (Clear) Urine Protein (Negative) Urine Glucose (UA) (Negative) Urine Ketones (Negative) Urine Blood (Negative) Hyaline Casts (0-2) /lpf Urine Mucus (None) /hpf 04/06/18 04/06/18 04/06/18 Range/Units 02:20 02:20 02:59 WBC (3.8-10.6) k/uL RBC (3.80-5.40) m/uL Hgb (11.4-16.0) gm/dL MCV (80.0-100.0) fL MCHC (31.0-37.0) g/dL Neutrophils # (Manual) (1.3-7.7) k/uL Lymphocytes # (Manual) (1.0-4.8) k/uL Metamyelocytes # (Man) (0) k/uL Myelocytes # (Manual) (0) k/uL VBG pH (7.31-7.41) VBG HCO3 (24-28) mmol/L Chloride (98-107) mmol/L Carbon Dioxide (22-30) mmol/L BUN (7-17) mg/dL Creatinine (0.52-1.04) mg/dL Glucose (74-99) mg/dL POC Glucose (mg/dL) 438 H (75-99) mg/dL Plasma Lactic Acid Flex 3.5 H* (0.7-2.0) mmol/L Calcium (8.4-10.2) mg/dL Magnesium (1.6-2.3) mg/dL AST (14-36) U/L Creatine Kinase (30-135) U/L CK-MB (CK-2) 3.3 H (0.0-2.4) ng/mL Total Protein (6.3-8.2) g/dL Albumin (3.5-5.0) g/dL Urine Appearance (Clear) Urine Protein (Negative) Urine Glucose (UA) (Negative) Urine Ketones (Negative) Urine Blood (Negative) Hyaline Casts (0-2) /lpf Urine Mucus (None) /hpf 04/06/18 04/06/18 04/06/18 Range/Units 05:05 05:45 07:00 WBC 16.5 H (3.8-10.6) k/uL RBC 3.66 L (3.80-5.40) m/uL Hgb 11.0 L (11.4-16.0) gm/dL MCV 100.2 H (80.0-100.0) fL MCHC 30.1 L (31.0-37.0) g/dL Neutrophils # (Manual) 13.20 H (1.3-7.7) k/uL Lymphocytes # (Manual) 0.66 L (1.0-4.8) k/uL Metamyelocytes # (Man) 2.15 H (0) k/uL Myelocytes # (Manual) 0.50 H (0) k/uL VBG pH (7.31-7.41) VBG HCO3 (24-28) mmol/L Chloride (98-107) mmol/L Carbon Dioxide (22-30) mmol/L BUN (7-17) mg/dL Creatinine (0.52-1.04) mg/dL Glucose (74-99) mg/dL POC Glucose (mg/dL) 364 H (75-99) mg/dL Plasma Lactic Acid Flex (0.7-2.0) mmol/L Calcium (8.4-10.2) mg/dL Magnesium (1.6-2.3) mg/dL AST (14-36) U/L Creatine Kinase (30-135) U/L CK-MB (CK-2) (0.0-2.4) ng/mL Total Protein (6.3-8.2) g/dL Albumin (3.5-5.0) g/dL Urine Appearance Cloudy H (Clear) Urine Protein 2+ H (Negative) Urine Glucose (UA) 3+ H (Negative) Urine Ketones Trace H (Negative) Urine Blood Moderate H (Negative) Hyaline Casts 12 H (0-2) /lpf Urine Mucus Rare H (None) /hpf 04/06/18 04/06/18 Range/Units 07:00 07:00 WBC (3.8-10.6) k/uL RBC (3.80-5.40) m/uL Hgb (11.4-16.0) gm/dL MCV (80.0-100.0) fL MCHC (31.0-37.0) g/dL Neutrophils # (Manual) (1.3-7.7) k/uL Lymphocytes # (Manual) (1.0-4.8) k/uL Metamyelocytes # (Man) (0) k/uL Myelocytes # (Manual) (0) k/uL VBG pH (7.31-7.41) VBG HCO3 (24-28) mmol/L Chloride 108 H (98-107) mmol/L Carbon Dioxide 19 L (22-30) mmol/L BUN 30 H (7-17) mg/dL Creatinine 1.67 H (0.52-1.04) mg/dL Glucose 300 H (74-99) mg/dL POC Glucose (mg/dL) (75-99) mg/dL Plasma Lactic Acid Flex 4.7 H* (0.7-2.0) mmol/L Calcium 7.9 L (8.4-10.2) mg/dL Magnesium 1.4 L (1.6-2.3) mg/dL AST 63 H (14-36) U/L Creatine Kinase (30-135) U/L CK-MB (CK-2) (0.0-2.4) ng/mL Total Protein 6.0 L (6.3-8.2) g/dL Albumin 2.8 L (3.5-5.0) g/dL Urine Appearance (Clear) Urine Protein (Negative) Urine Glucose (UA) (Negative) Urine Ketones (Negative) Urine Blood (Negative) Hyaline Casts (0-2) /lpf Urine Mucus (None) /hpf Assessment and Plan Plan: This is a 62-year-old female who presents for hospital with cellulitis of the right auricle, cellulitis bilateral lower extremities, chronic decubitus ulcer to the right great toe, possible pneumonia versus CHF on chest x-ray, lactic acidosis, sepsis. Patient is currently on vancomycin and Zosyn will be added. Blood cultures currently in progress. Blood sugar needs adequate control. Hemoglobin A1c will be ordered. conservation educator and dietitian consult is requested. Glucerna added for moderate protein calorie malnutrition. Continue supportive care. Further recommendations as patient progresses. The above dictated assessment and findings were discussed with Dr. Manuel. The impression and plan of care have been directed as dictated. Africa Rothman nurse practitioner acting as scribe for Dr. Manuel.
[2018-04-06 10:34] LABS: Glucose,Whole Blood 174 mg/dL (75-99)
--- NOTE | 2018-04-06 14:03 | P.CNPUL ---
History of Present Illness Consult date: 04/06/18 Requesting physician: Alix Crawford Reason for consult: other (Critical care management) Chief complaint: Weakness, found on floor. History of present illness: This is a pleasant 62-year-old female patient who follows with Dr. Moreno as her primary care physician. 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 Lifelong nonsmoker. The patient's had been out of town however her daughter was checking in on her daily by phone. The got home around 11:30 PM last night all the lights were off the patient was found lying on the floor next to her bed. EMS was called and he was found to be febrile, tachycardic and hyperglycemic she was transferred here for the same. CT brain revealed no acute intracranial abnormality. Chest x-ray reveals interstitial he and hazy opacities throughout the lungs with possible pulmonary vascular congestion and pulmonary edema. White count 16.5. Hemoglobin 11.0. Creatinine 0.67. Glucose 300, lactic acid 4.7. She is seen today in consultation in the emergency room. She is awake and alert in no acute distress. She is quite dry and a weak voice. Most recent lactic acid 3.1. He has received vancomycin and cefepime. She has received 2 L of IV fluid resuscitation. 9 normal saline at 150 ML's per hour. Patient does have a drinking green area of her right great toe. There is also significant cellulitis and edema of the lower extremities right greater than left. She did present with a T-max of 103. Currently 98.9. Hemodynamically stable. Not requiring any pressors. O2 saturations in the high 90s on room air. Review of Systems Constitutional: Reports fever, Reports malaise, Reports poor appetite, Reports weakness Eyes: denies blurred vision, denies decreased vision Ears: deny: decreased hearing Ears, nose, mouth and throat: Reports hoarseness, Reports voice changes Cardiovascular: Reports edema, Reports high blood pressure, Reports leg edema Respiratory: Reports dyspnea, Reports sleep apnea Gastrointestinal: Reports loss of appetite Genitourinary: Reports urinary frequency Musculoskeletal: Reports frequent falls, Reports limitation of motion, Reports muscle weakness Musculoskeletal: right: foot pain, bilateral: ankle swelling, foot swelling, knee swelling Integumentary: Reports color changes, Reports wounds Neurological: Reports change in mentation, Reports lack of coordination, Reports weakness Psychiatric: Reports anxiety, Reports depression Endocrine: Reports excessive thirst, Reports high blood sugars, Reports polydipsia Hematologic/Lymphatic: Reports lymphedema Allergic/Immunologic: Reports persistent infections Past Medical History Past Medical History: CVA/TIA, Diabetes Mellitus, GERD/Reflux, Hypertension, Renal Disease, Rheumatoid Arthritis (RA), Sleep Apnea/CPAP/BIPAP Additional Past Medical History / Comment(s): "ckd stage lll", broken Lt foot 2011-no sx, stroke 2004 affected non dominant lt side . lt side weaker than rt" , vertigo, neck pain, mini stroke nov 2016. no cpap used. Ulcer on right great toe History of Any Multi-Drug Resistant Organisms: None Reported Past Surgical History: Breast Surgery Additional Past Surgical History / Comment(s): breast biopsy, gastric sleeve , colonoscopy 04/14/14 Past Anesthesia/Blood Transfusion Reactions: Motion Sickness Past Psychological History: Depression Additional Psychological History / Comment(s): and lives with family home with her . 2 adult children. No tobacco or alcohol use. No experience. No international travel. Pet cats at home they are not new. Used to work in a care of handicapped persons Smoking Status: Never smoker Past Alcohol Use History: None Reported Past Drug Use History: None Reported - Past Family History Mother Family Medical History: Diabetes Mellitus Additional Family Medical History / Comment(s): heart attack, Brother of lung cancer 04/19/14 Father Family Medical History: Cancer Additional Family Medical History / Comment(s): lung cancer Brother(s) Family Medical History: Cancer Additional Family Medical History / Comment(s): LUNG Medications and Allergies Home Medications Medication Instructions Recorded Confirmed Type Calcitriol 0.5 mcg PO DAILY 09/30/13 04/06/18 History Clopidogrel Bisulfate [Plavix] 75 mg PO DAILY 09/30/13 04/06/18 History DULoxetine HCL [Cymbalta] 60 mg PO BID 09/30/13 04/06/18 History Pregabalin [Lyrica] 75 mg PO TID 01/28/16 04/06/18 History Ferrous Sulfate [Iron (65 MG 325 mg PO DAILY 07/06/16 04/06/18 History Elemental)] Topiramate [Topamax] 25 mg PO BID 07/06/16 04/06/18 History oxyCODONE-APAP 10-325MG [Percocet 1 tab PO Q6H PRN #20 tab 12/02/16 04/06/18 Rx 10-325 mg] Aspirin 81 mg PO DAILY 01/06/17 04/06/18 History Atorvastatin [Lipitor] 40 mg PO HS 01/06/17 04/06/18 History Insulin Glargine [Lantus] 30 unit SQ HS 01/06/17 04/06/18 History Carvedilol [Coreg*] 12.5 mg PO BID 04/06/18 04/06/18 History INSULIN ASPART (NovoLOG) [NovoLOG 10 unit SQ AC-LUNCH 04/06/18 04/06/18 History (formulary)] INSULIN ASPART (NovoLOG) [NovoLOG 15 unit SQ AC-BID 04/06/18 04/06/18 History (formulary)] INSULIN ASPART (NovoLOG) [NovoLOG See Protocol SQ ACHS 04/06/18 04/06/18 History (formulary)] Ondansetron HCl [Zofran] 8 mg PO Q8H PRN 04/06/18 04/06/18 History amLODIPine [Norvasc] 10 mg PO DAILY 04/06/18 04/06/18 History Allergies Allergy/AdvReac Type Severity Reaction Status Date / Time No Known Allergies Allergy Verified 04/06/18 06:51 Physical Exam Vitals: Vital Signs Temp Pulse Resp BP Pulse Ox 04/06/18 11:47 98.9 F 102 H 18 114/60 98 04/06/18 10:42 101 H 18 121/40 99 04/06/18 05:45 99.0 F 89 18 121/41 100 04/06/18 04:50 99.5 F 99 18 131/52 98 04/06/18 01:54 103.0 F H 107 H 23 185/84 96 Intake and Output 04/05/18 04/06/18 04/06/18 22:59 06:59 14:59 Other: Weight 137.438 kg GENERAL EXAM: Morbidly obese. Alert, oriented, comfortable in no apparent distress. On room air. HEAD: Normocephalic. EYES: Normal reaction of pupils, equal size. NOSE: Clear with pink turbinates. THROAT: No erythema or exudates. NECK: No masses, no JVD. CHEST: No chest wall deformity. LUNGS: Equal air entry with crackles in the posterior bases, diminished. CVS: S1 and S2 normal with no audible murmur, regular rhythm. ABDOMEN: No hepatosplenomegaly, normal bowel sounds, no guarding or rigidity. SPINE: No scoliosis or deformity SKIN: Dry gangrene on the right toe. Cellulitis of the bilateral lower extremities right greater than left. CENTRAL NERVOUS SYSTEM: No focal deficits, tone is normal in all 4 extremities. EXTREMITIES: 2-3+ edema, suspect chronic, cellulitis. No clubbing, no cyanosis. Peripheral pulses are intact. Results - Laboratory Findings CBC and BMP: 04/06/18 07:00 04/06/18 07:00 PT/INR, D-dimer PT 11.5 sec (9.0-12.0) 04/06/18 02:20 INR 1.1 (<1.2) 04/06/18 02:20 Abnormal lab findings: Abnormal Labs 04/06/18 04/06/18 04/06/18 02:20 02:20 02:20 WBC RBC Hgb MCV MCHC 30.7 L Neutrophils # (Manual) 9.10 H Lymphocytes # (Manual) 0.19 L Metamyelocytes # (Man) Myelocytes # (Manual) VBG pH 7.25 L VBG HCO3 17 L Chloride 111 H Carbon Dioxide 17 L BUN 26 H Creatinine 1.32 H Glucose 381 H POC Glucose (mg/dL) Plasma Lactic Acid Flex Calcium 7.7 L Magnesium AST Creatine Kinase 1265 H* CK-MB (CK-2) Total Protein 6.0 L Albumin 2.8 L Urine Appearance Urine Protein Urine Glucose (UA) Urine Ketones Urine Blood Urine WBC Hyaline Casts Urine Mucus 04/06/18 04/06/18 04/06/18 02:20 02:20 02:59 WBC RBC Hgb MCV MCHC Neutrophils # (Manual) Lymphocytes # (Manual) Metamyelocytes # (Man) Myelocytes # (Manual) VBG pH VBG HCO3 Chloride Carbon Dioxide BUN Creatinine Glucose POC Glucose (mg/dL) 438 H Plasma Lactic Acid Flex 3.5 H* Calcium Magnesium AST Creatine Kinase CK-MB (CK-2) 3.3 H Total Protein Albumin Urine Appearance Urine Protein Urine Glucose (UA) Urine Ketones Urine Blood Urine WBC Hyaline Casts Urine Mucus 04/06/18 04/06/18 04/06/18 05:05 05:45 07:00 WBC 16.5 H RBC 3.66 L Hgb 11.0 L MCV 100.2 H MCHC 30.1 L Neutrophils # (Manual) 13.20 H Lymphocytes # (Manual) 0.66 L Metamyelocytes # (Man) 2.15 H Myelocytes # (Manual) 0.50 H VBG pH VBG HCO3 Chloride Carbon Dioxide BUN Creatinine Glucose POC Glucose (mg/dL) 364 H Plasma Lactic Acid Flex Calcium Magnesium AST Creatine Kinase CK-MB (CK-2) Total Protein Albumin Urine Appearance Cloudy H Urine Protein 2+ H Urine Glucose (UA) 3+ H Urine Ketones Trace H Urine Blood Moderate H Urine WBC 32 H Hyaline Casts 12 H Urine Mucus Rare H 04/06/18 04/06/18 04/06/18 07:00 07:00 10:33 WBC RBC Hgb MCV MCHC Neutrophils # (Manual) Lymphocytes # (Manual) Metamyelocytes # (Man) Myelocytes # (Manual) VBG pH VBG HCO3 Chloride 108 H Carbon Dioxide 19 L BUN 30 H Creatinine 1.67 H Glucose 300 H POC Glucose (mg/dL) 174 H Plasma Lactic Acid Flex 4.7 H* Calcium 7.9 L Magnesium 1.4 L AST 63 H Creatine Kinase CK-MB (CK-2) Total Protein 6.0 L Albumin 2.8 L Urine Appearance Urine Protein Urine Glucose (UA) Urine Ketones Urine Blood Urine WBC Hyaline Casts Urine Mucus 04/06/18 11:03 WBC RBC Hgb MCV MCHC Neutrophils # (Manual) Lymphocytes # (Manual) Metamyelocytes # (Man) Myelocytes # (Manual) VBG pH VBG HCO3 Chloride Carbon Dioxide BUN Creatinine Glucose POC Glucose (mg/dL) Plasma Lactic Acid Flex 3.1 H* Calcium Magnesium AST Creatine Kinase CK-MB (CK-2) Total Protein Albumin Urine Appearance Urine Protein Urine Glucose (UA) Urine Ketones Urine Blood Urine WBC Hyaline Casts Urine Mucus - Diagnostic Findings Chest x-ray: image reviewed Assessment and Plan Assessment: Impression: #1 Profound weakness with fall of unclear etiology suspect secondary to sepsis secondary to lower extremity cellulitis right greater than left. There were 2 Sepsis with lactic acidosis secondary to lower extremity cellulitis. #2 Leukocytosis secondary to above. #3 Acute on chronic renal failure and history of stage III chronic kidney disease. #4 Lactic acidosis secondary to above. #5 Rhabdomyolysis after prolonged downtime found on floor. #6 Profound weakness secondary to above. #7 Hyperglycemia in a patient with a known history of diabetes mellitus, type II. #8 History of CVA 2 with residual left-sided weakness. #9 Morbid obesity. #10 Obstructive sleep apnea AHI of 16, not on CPAP in the outpatient setting. #11 Rheumatoid arthritis. #12 Hypertension. #13 Wound of the right great toe, suspect dry gangrene. #14 History of gastric sleeve in October 2014. Plan: The patient was seen and evaluated by Dr. Ragland in the emergency room. We did give another additional fluid bolus. Continue vancomycin, add Zosyn, continue 0.9 normal saline at 150 MLS per hour. Insert indwelling Montgomery catheter. Admit the patient to the intensive care unit versus selective care unit. Consult vascular surgery regarding suspected dry gangrene of the right toe. Lower extremity cellulitis. Consult ID. We will transfer her to the intensive care unit. We'll continue to monitor her closely. We'll make further recommendations based on her clinical status. I, the cosigning physician, performed a history & physical examination of the patient. Lungs sounds faint crackles in the posterior bases. Maintaining good O2 saturations in the 90s on room air. I discussed the assessment and plan of care with my nurse practitioner, Lilian Marmolejo. I attest to the above note as dictated by her. Time with Patient: Greater than 30
[2018-04-06 14:59] LABS: Glucose,Whole Blood 156 mg/dL (75-99)
[2018-04-06] MEDS: ACETAMINOPHEN TAB 325 MG TAB PO PRN (15:06)
[2018-04-06] MEDS: oxyCODONE-APAP 10-325MG 1 EACH TAB PO PRN ×2 (15:09→20:56)
[2018-04-06] MEDS: NYSTATIN 100,000 UNIT/GM POWD 15 GM TOPICAL SCH ×2 (15:30→20:22)
--- NOTE | 2018-04-06 16:15 | P.HPIM ---
History of Present Illness 62-year-old obese female came in because of her Celexa the right leg found to be septic with elevated lactic acid. Patient does have multiple ulcerations of both legs significant redness and localized of temperature. Patient does have history of sleep apnea and doesn't use any CPAP machine at home. Patient is diabetic and patient was started on vancomycin and Zosyn for diabetic foot ulcers, sepsis from that. Wound cultures are being obtained received 2 L of IV fluids in ER and patient is presently on 1 50 mL of normal saline and T- max of 103. Patient is not requiring any pressor support at this time. Review of Systems REVIEW OF SYSTEMS: CONSTITUTIONAL: No fever, no malaise, no fatigue. HEENT: No recent visual problems or hearing problems. Denied any sore throat. CARDIOVASCULAR: No chest pain, orthopnea, PND, no palpitations, no syncope. PULMONARY: No shortness of breath, no cough, no hemoptysis. GASTROINTESTINAL: No diarrhea, no nausea, no vomiting, no abdominal pain. NEUROLOGICAL: No headaches, no weakness, no numbness. HEMATOLOGICAL: Denies any bleeding or petechiae. GENITOURINARY: Denies any burning micturition, frequency, or urgency. MUSCULOSKELETAL/RHEUMATOLOGICAL: As mentioned in HPI ENDOCRINE: Denies any polyuria or polydipsia. The rest of the 14-point review of systems is negative. 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 lt side weaker than rt" , vertigo, neck pain, mini stroke nov 2016. no cpap used. Ulcer on right great toe History of Any Multi-Drug Resistant Organisms: None Reported Past Surgical History: Breast Surgery Additional Past Surgical History / Comment(s): breast biopsy, gastric sleeve , colonoscopy 04/14/14 Past Anesthesia/Blood Transfusion Reactions: Motion Sickness Past Psychological History: Depression Additional Psychological History / Comment(s): and lives with family home with her . 2 adult children. No tobacco or alcohol use. No experience. No international travel. Pet cats at home they are not new. Used to work in a care of handicapped persons Smoking Status: Never smoker Past Alcohol Use History: None Reported Past Drug Use History: None Reported - Past Family History Mother Family Medical History: Diabetes Mellitus Additional Family Medical History / Comment(s): heart attack, Brother of lung cancer 04/19/14 Father Family Medical History: Cancer Additional Family Medical History / Comment(s): lung cancer Brother(s) Family Medical History: Cancer Additional Family Medical History / Comment(s): LUNG Medications and Allergies Home Medications Medication Instructions Recorded Confirmed Type Calcitriol 0.5 mcg PO DAILY 09/30/13 04/06/18 History Clopidogrel Bisulfate [Plavix] 75 mg PO DAILY 09/30/13 04/06/18 History DULoxetine HCL [Cymbalta] 60 mg PO BID 09/30/13 04/06/18 History Pregabalin [Lyrica] 75 mg PO TID 01/28/16 04/06/18 History Ferrous Sulfate [Iron (65 MG 325 mg PO DAILY 07/06/16 04/06/18 History Elemental)] Topiramate [Topamax] 25 mg PO BID 07/06/16 04/06/18 History oxyCODONE-APAP 10-325MG [Percocet 1 tab PO Q6H PRN #20 tab 12/02/16 04/06/18 Rx 10-325 mg] Aspirin 81 mg PO DAILY 01/06/17 04/06/18 History Atorvastatin [Lipitor] 40 mg PO HS 01/06/17 04/06/18 History Insulin Glargine [Lantus] 30 unit SQ HS 01/06/17 04/06/18 History Carvedilol [Coreg*] 12.5 mg PO BID 04/06/18 04/06/18 History INSULIN ASPART (NovoLOG) [NovoLOG 10 unit SQ AC-LUNCH 04/06/18 04/06/18 History (formulary)] INSULIN ASPART (NovoLOG) [NovoLOG 15 unit SQ AC-BID 04/06/18 04/06/18 History (formulary)] INSULIN ASPART (NovoLOG) [NovoLOG See Protocol SQ ACHS 04/06/18 04/06/18 History (formulary)] Ondansetron HCl [Zofran] 8 mg PO Q8H PRN 04/06/18 04/06/18 History amLODIPine [Norvasc] 10 mg PO DAILY 04/06/18 04/06/18 History Allergies Allergy/AdvReac Type Severity Reaction Status Date / Time No Known Allergies Allergy Verified 04/06/18 06:51 Physical Exam Vitals: Vital Signs Temp Pulse Resp BP Pulse Ox 04/06/18 13:44 98.8 F 110 H 18 134/64 98 04/06/18 11:47 98.9 F 102 H 18 114/60 98 04/06/18 10:42 101 H 18 121/40 99 04/06/18 05:45 99.0 F 89 18 121/41 100 04/06/18 04:50 99.5 F 99 18 131/52 98 04/06/18 01:54 103.0 F H 107 H 23 185/84 96 Intake and Output 04/06/18 04/06/18 04/06/18 06:59 14:59 22:59 Intake Total 2000 Balance 2000 Intake: Amount of Fluid Infused ( 2000 ml) Other: Weight 137.438 kg PHYSICAL EXAMINATION: GENERAL: The patient is alert and oriented x3, not in any acute distress. Obese HEENT: Pupils are round and equally reacting to light. EOMI. No scleral icterus. No conjunctival pallor. Normocephalic, atraumatic. No pharyngeal erythema. No thyromegaly. CARDIOVASCULAR: S1 and S2 present. No murmurs, rubs, or gallops. PULMONARY: Chest is clear to auscultation, no wheezing or crackles. ABDOMEN: Soft, nontender, nondistended, normoactive bowel sounds. No palpable organomegaly. MUSCULOSKELETAL: No joint swelling or deformity. EXTREMITIES: No cyanosis, clubbing, patient has bilateral pedal edema with redness significant in the right lower extremity with local is of temperature patient has multiple ulcerations in both legs significant one in the right lower extremity which is stage III to for ulceration NEUROLOGICAL: Gross neurological examination did not reveal any focal deficits. SKIN: As mentioned above Results CBC & Chem 7: 04/06/18 07:00 04/06/18 07:00 Labs: Abnormal Lab Results - Last 24 Hours (Table) 04/06/18 04/06/18 04/06/18 Range/Units 02:20 02:20 02:20 WBC (3.8-10.6) k/uL RBC (3.80-5.40) m/uL Hgb (11.4-16.0) gm/dL MCV (80.0-100.0) fL MCHC 30.7 L (31.0-37.0) g/dL Neutrophils # (Manual) 9.10 H (1.3-7.7) k/uL Lymphocytes # (Manual) 0.19 L (1.0-4.8) k/uL Metamyelocytes # (Man) (0) k/uL Myelocytes # (Manual) (0) k/uL VBG pH 7.25 L (7.31-7.41) VBG HCO3 17 L (24-28) mmol/L Chloride 111 H (98-107) mmol/L Carbon Dioxide 17 L (22-30) mmol/L BUN 26 H (7-17) mg/dL Creatinine 1.32 H (0.52-1.04) mg/dL Glucose 381 H (74-99) mg/dL POC Glucose (mg/dL) (75-99) mg/dL Plasma Lactic Acid Flex (0.7-2.0) mmol/L Calcium 7.7 L (8.4-10.2) mg/dL Magnesium (1.6-2.3) mg/dL AST (14-36) U/L Creatine Kinase 1265 H* (30-135) U/L CK-MB (CK-2) (0.0-2.4) ng/mL Total Protein 6.0 L (6.3-8.2) g/dL Albumin 2.8 L (3.5-5.0) g/dL Urine Appearance (Clear) Urine Protein (Negative) Urine Glucose (UA) (Negative) Urine Ketones (Negative) Urine Blood (Negative) Urine WBC (0-5) /hpf Hyaline Casts (0-2) /lpf Urine Mucus (None) /hpf 04/06/18 04/06/18 04/06/18 Range/Units 02:20 02:20 02:59 WBC (3.8-10.6) k/uL RBC (3.80-5.40) m/uL Hgb (11.4-16.0) gm/dL MCV (80.0-100.0) fL MCHC (31.0-37.0) g/dL Neutrophils # (Manual) (1.3-7.7) k/uL Lymphocytes # (Manual) (1.0-4.8) k/uL Metamyelocytes # (Man) (0) k/uL Myelocytes # (Manual) (0) k/uL VBG pH (7.31-7.41) VBG HCO3 (24-28) mmol/L Chloride (98-107) mmol/L Carbon Dioxide (22-30) mmol/L BUN (7-17) mg/dL Creatinine (0.52-1.04) mg/dL Glucose (74-99) mg/dL POC Glucose (mg/dL) 438 H (75-99) mg/dL Plasma Lactic Acid Flex 3.5 H* (0.7-2.0) mmol/L Calcium (8.4-10.2) mg/dL Magnesium (1.6-2.3) mg/dL AST (14-36) U/L Creatine Kinase (30-135) U/L CK-MB (CK-2) 3.3 H (0.0-2.4) ng/mL Total Protein (6.3-8.2) g/dL Albumin (3.5-5.0) g/dL Urine Appearance (Clear) Urine Protein (Negative) Urine Glucose (UA) (Negative) Urine Ketones (Negative) Urine Blood (Negative) Urine WBC (0-5) /hpf Hyaline Casts (0-2) /lpf Urine Mucus (None) /hpf 04/06/18 04/06/18 04/06/18 Range/Units 05:05 05:45 07:00 WBC 16.5 H (3.8-10.6) k/uL RBC 3.66 L (3.80-5.40) m/uL Hgb 11.0 L (11.4-16.0) gm/dL MCV 100.2 H (80.0-100.0) fL MCHC 30.1 L (31.0-37.0) g/dL Neutrophils # (Manual) 13.20 H (1.3-7.7) k/uL Lymphocytes # (Manual) 0.66 L (1.0-4.8) k/uL Metamyelocytes # (Man) 2.15 H (0) k/uL Myelocytes # (Manual) 0.50 H (0) k/uL VBG pH (7.31-7.41) VBG HCO3 (24-28) mmol/L Chloride (98-107) mmol/L Carbon Dioxide (22-30) mmol/L BUN (7-17) mg/dL Creatinine (0.52-1.04) mg/dL Glucose (74-99) mg/dL POC Glucose (mg/dL) 364 H (75-99) mg/dL Plasma Lactic Acid Flex (0.7-2.0) mmol/L Calcium (8.4-10.2) mg/dL Magnesium (1.6-2.3) mg/dL AST (14-36) U/L Creatine Kinase (30-135) U/L CK-MB (CK-2) (0.0-2.4) ng/mL Total Protein (6.3-8.2) g/dL Albumin (3.5-5.0) g/dL Urine Appearance Cloudy H (Clear) Urine Protein 2+ H (Negative) Urine Glucose (UA) 3+ H (Negative) Urine Ketones Trace H (Negative) Urine Blood Moderate H (Negative) Urine WBC 32 H (0-5) /hpf Hyaline Casts 12 H (0-2) /lpf Urine Mucus Rare H (None) /hpf 04/06/18 04/06/18 04/06/18 Range/Units 07:00 07:00 10:33 WBC (3.8-10.6) k/uL RBC (3.80-5.40) m/uL Hgb (11.4-16.0) gm/dL MCV (80.0-100.0) fL MCHC (31.0-37.0) g/dL Neutrophils # (Manual) (1.3-7.7) k/uL Lymphocytes # (Manual) (1.0-4.8) k/uL Metamyelocytes # (Man) (0) k/uL Myelocytes # (Manual) (0) k/uL VBG pH (7.31-7.41) VBG HCO3 (24-28) mmol/L Chloride 108 H (98-107) mmol/L Carbon Dioxide 19 L (22-30) mmol/L BUN 30 H (7-17) mg/dL Creatinine 1.67 H (0.52-1.04) mg/dL Glucose 300 H (74-99) mg/dL POC Glucose (mg/dL) 174 H (75-99) mg/dL Plasma Lactic Acid Flex 4.7 H* (0.7-2.0) mmol/L Calcium 7.9 L (8.4-10.2) mg/dL Magnesium 1.4 L (1.6-2.3) mg/dL AST 63 H (14-36) U/L Creatine Kinase (30-135) U/L CK-MB (CK-2) (0.0-2.4) ng/mL Total Protein 6.0 L (6.3-8.2) g/dL Albumin 2.8 L (3.5-5.0) g/dL Urine Appearance (Clear) Urine Protein (Negative) Urine Glucose (UA) (Negative) Urine Ketones (Negative) Urine Blood (Negative) Urine WBC (0-5) /hpf Hyaline Casts (0-2) /lpf Urine Mucus (None) /hpf 04/06/18 04/06/18 Range/Units 11:03 14:47 WBC (3.8-10.6) k/uL RBC (3.80-5.40) m/uL Hgb (11.4-16.0) gm/dL MCV (80.0-100.0) fL MCHC (31.0-37.0) g/dL Neutrophils # (Manual) (1.3-7.7) k/uL Lymphocytes # (Manual) (1.0-4.8) k/uL Metamyelocytes # (Man) (0) k/uL Myelocytes # (Manual) (0) k/uL VBG pH (7.31-7.41) VBG HCO3 (24-28) mmol/L Chloride (98-107) mmol/L Carbon Dioxide (22-30) mmol/L BUN (7-17) mg/dL Creatinine (0.52-1.04) mg/dL Glucose (74-99) mg/dL POC Glucose (mg/dL) 156 H (75-99) mg/dL Plasma Lactic Acid Flex 3.1 H* (0.7-2.0) mmol/L Calcium (8.4-10.2) mg/dL Magnesium (1.6-2.3) mg/dL AST (14-36) U/L Creatine Kinase (30-135) U/L CK-MB (CK-2) (0.0-2.4) ng/mL Total Protein (6.3-8.2) g/dL Albumin (3.5-5.0) g/dL Urine Appearance (Clear) Urine Protein (Negative) Urine Glucose (UA) (Negative) Urine Ketones (Negative) Urine Blood (Negative) Urine WBC (0-5) /hpf Hyaline Casts (0-2) /lpf Urine Mucus (None) /hpf Thrombosis Risk Factor Assmnt - Choose All That Apply Any of the Below Risk Factors Present?: Yes Each Factor Represents 1 point: Obesity (BMI >25), Sepsis (< 1month), Swollen legs (current) Other Risk Factors: Yes Each Risk Factor Represents 2 Points: Age 61-74 years Other congenital or acquired thrombophilia - If yes, enter type in comment: No Thrombosis Risk Factor Assessment Total Risk Factor Score: 5 Thrombosis Risk Factor Assessment Level: High Risk Assessment and Plan Plan: -Sepsis secondary to diabetic foot infection diabetic foot ulcer and cellulitis , patient has severe sepsis for which patient is on IV fluids as mentioned above vancomycin and Zosyn and wound cultures are being obtained blood cultures were obtained and infectious disease was consulted patient is in ICU for close clinical monitoring for severe sepsis -Type 2 diabetes mellitus with fairly well-controlled blood sugars patient will be resumed on her home regimen along with sliding scale insulin -Acute renal failure on chronic kidney disease stage III chronic kidney disease is secondary to diabetic nephropathy acute renal failure secondary to sepsis at possibly acute tubular necrosis nonoliguric IV fluids will be continued as mentioned above -CVA TIA in the past patient is on both aspirin and Plavix, Aspin will be continued Plavix will be held -Gastroesophageal reflux disease -Sleep apnea and doesn't use CPAP machine at home -Depression for above-mentioned chronic medical problems patient will be resumed and continued on appropriate home medications
[2018-04-06] MEDS: PIPERACILLIN-TAZOBACTAM 3.375 GM in SODIUM CHLORIDE 0.9% 100 ML IVPB SCH ×3 (17:07→23:41)
[2018-04-06] MEDS: CARVEDILOL 12.5 MG TAB PO SCH (17:08)
[2018-04-06] MEDS: PREGABALIN 75 MG CAP PO SCH ×2 (17:08→20:57)
[2018-04-06 17:11] LABS: Glucose,Whole Blood 211 mg/dL (75-99)
[2018-04-06] MEDS: INSULIN ASPART (NovoLOG) 100 UNIT/ML VIAL SQ SCH ×3 (17:11→20:44)
[2018-04-06 19:08] LABS: Hemoglobin A1C 9.1 % (4.0-6.0)
[2018-04-06] MEDS ORDERED: SODIUM CHLORIDE 0.9% 1,000 ML IV ONE (19:08)
[2018-04-06] MEDS ORDERED: Magnesium Replacement Protocol 1 EACH MISC MISCELLANE PRN (19:51)
--- NOTE | 2018-04-06 20:16 | P.CON ---
Consult Note - . Consult date: 04/06/18 Assessment/Plan:: This is a 62-year-old female last seen in January 2016 for cellulitis of the left leg with a long-standing history of obesity as well as rheumatoid arthritis, uncontrolled diabetes mellitus. Patient states that she has had fever, chills, swelling on her right side of her face along with her right ear and a sore throat for about one week. Her went to [place] [facility] and was gone for 4 days. He came home yesterday evening around 11:30 and found her on the floor next to the bed and appeared that she had fallen. He calculated that she must have been on the floor for about 5 hours. Initially, she was barely able to talk and there was some mental status changes. She had extreme weakness, injured the left toes but no other injury was noted. Patient did have a life alert on but apparently did not use it. He checked her blood sugar was 326. He also gives history that the patient has a chronic diabetic ulcer to the right great toe that has been under the care of Dr. Chiu and Shane for the past 6 months with no improvement. Patient apply some type of ointment daily and wraps it. Dr. Chiu does debridements. Patient also has wounds to the left lower leg from scratching. She has chronic lymphedema but the right leg is brighter red now than normal. Patient thinks her last hemoglobin A1c was in the eights down from 9+. Patient follows with Dr. Selwyn crowley for her diabetes. Patient also follows with Dr. Rocha for previous stroke with no residuals. Her contacted EMS and patient was brought in to [facility] emergency center. Temperature 103, heart rate 107, blood pressure 185/84 and pulse ox 96%. White count is 16.5, creatinine 1.67, blood sugars running in the 300s and 400s, initial lactic acid 3.4 with repeat of 4.7, CK 1265. Troponin was normal. Albumin 2.8. Urinalysis was cloudy, blood moderate, ketones trace. Influenza testing negative. Acetone negative. CAT scan of the brain showed no acute intracranial abnormality with stable chronic small vessel ischemic change. Chest x-ray showed pulmonary vascular congestion, infectious or inflammatory process not excluded. Patient was provided 2 L of IV fluid, ceftriaxone, cefepime, vancomycin, Tylenol and insulin and admitted to the cardiac stepdown unit. Patient is currently waiting in the ER for a bed on the unit.Please see the consult is dictated by nurse practitioner . Africa Perez. He has noted this obese woman was found by her [place] She was weak and dehydrated and unable to speak very well. She has had hydration with some improvement of her status. She still weak, her mouth is dry and does not feel well. As noted she has evidence of the extensive ulceration of the right foot plantar an injury to the left foot which is somewhat new as per the . Local wound care will be utilized the great toe with the medical honey and wrap in place. Request venous Doppler studies sure there is no clots. If there is no deep venous thrombosis week and then utilizes Silvadene wrap with compression to the bilateral lower extremities to help. The patient's relates that there are compression pumps in the home for her chronic edema that she simply doesn't use. Hopefully we'll be able to work with the discharge team to have evaluation the home potentially have new sequential sleeves that she can wear and help with her lower extremity edema. If she is not vascular surgery consultation this can be considered once her ulcerations improved which we will follow with the wound center after discharge. Antimicrobial therapy this was Zosyn and vancomycin for now until we have further data. There is a swelling to the right ear which the patient believes may be related to her inability to move and laying on it while she was on the floor. Otitis external often has Pseudomonas and constantly the Zosyn is appropriate at this time. I agree with evaluation, assessment and plan is dictated by nurse practitioner's is Africa Rothman.
[2018-04-06] MEDS: MAGNESIUM SULFATE-D5W PMX 1 GM in DEXTROSE/WATER 1 100ML.BAG IVPB SCH ×3 (20:21→22:48)
[2018-04-06] MEDS: TOPIRAMATE 25 MG TAB PO SCH (20:21)
[2018-04-06] MEDS: DULoxetine HCL 60 MG CAPSULE.DR PO SCH (20:21)
[2018-04-06] MEDS: INSULIN DETEMIR (LEVEMIR) 100 UNIT/ML SYR SQ SCH (20:44)
[2018-04-06 20:46] LABS: Glucose,Whole Blood 143 mg/dL (75-99)
--- NOTE | 2018-04-06 22:54 | US ---
EXAM: US Left Lower Extremity Non-Vascular, Complete US Right Lower Extremity Non-Vascular, Complete CLINICAL HISTORY: ITS.REASON US Reason: DVT edema ulceration TECHNIQUE: Real-time ultrasound scan of the left lower extremity with image documentation. Real-time ultrasound scan of the right lower extremity with image documentation. COMPARISON: Ultrasound venous lower extremity 01/28/2016. FINDINGS: Soft tissues: Unremarkable. No abscess. No foreign body. Deep veins: No DVT. Lymph nodes: No mass or adenopathy. IMPRESSION: No DVT.
[2018-04-06] MEDS ORDERED: FUROSEMIDE 10 MG/ML 4 ML VIAL IV STA (23:17)
[2018-04-07 01:42] LABS: Glucose,Whole Blood 116 mg/dL (75-99)
[2018-04-07] MEDS: oxyCODONE-APAP 10-325MG 1 EACH TAB PO PRN ×3 (02:10→23:43)
[2018-04-07] MEDS: SODIUM CHLORIDE 0.9% 1,000 ML IV SCH ×4 (02:56→20:31)
[2018-04-07] MEDS ORDERED: VANCOMYCIN 2,000 MG in SODIUM CHLORIDE 0.9% 500 ML 500 ML IVPB SCH (03:30)
[2018-04-07 05:46] LABS: HCT 31.9 % (34.0-46.0); Hypochromasia Marked; MCH 30.6 pg (25.0-35.0); MCHC 31.3 g/dL (31.0-37.0); MCV 97.8 fL (80.0-100.0); Mean Platelet Volume 6.8; Platelet Count 180 k/uL (150-450); RBC 3.26 m/uL (3.80-5.40); RDW 14.1 % (11.5-15.5); WBC 14.3 k/uL (3.8-10.6)
[2018-04-07 05:57] LABS: Albumin 2.3 g/dL (3.5-5.0); Calcium 7.4 mg/dL (8.4-10.2); Potassium 3.8 mmol/L (3.5-5.1); Total Bilirubin 0.6 mg/dL (0.2-1.3); Total Protein 5.3 g/dL (6.3-8.2)
[2018-04-07] MEDS: VANCOMYCIN 2,000 MG in SODIUM CHLORIDE 0.9% 500 ML 500 ML IVPB SCH (06:23)
[2018-04-07 06:45] LABS: Band Neutrophils % 28 %; Basophils # (M) 0.14 k/uL (0-0.2); Lymphocytes # (M) 0.57 k/uL (1.0-4.8); Monocytes # (M) 0.43 k/uL (0-1.0); Neutrophils % (M) 64 %; Nucleated Red Blood Cells 0 /100 WBC (0-0); Total Cells Counted 100
[2018-04-07 07:17] LABS: Glucose,Whole Blood 63 mg/dL (75-99)
[2018-04-07] MEDS: INSULIN ASPART (NovoLOG) 100 UNIT/ML VIAL SQ SCH ×7 (07:33→20:21)
[2018-04-07 07:36] LABS: Glucose,Whole Blood 76 mg/dL (75-99)
[2018-04-07 07:42] LABS: Glucose,Whole Blood 64 mg/dL (75-99)
[2018-04-07] MEDS: PREGABALIN 75 MG CAP PO SCH ×3 (08:01→20:28)
[2018-04-07] MEDS: DULoxetine HCL 60 MG CAPSULE.DR PO SCH ×2 (08:01→20:28)
[2018-04-07] MEDS: ASPIRIN 81 MG PO SCH (08:01)
[2018-04-07] MEDS: CARVEDILOL 12.5 MG TAB PO SCH ×2 (08:01→18:11)
[2018-04-07] MEDS: HEPARIN SODIUM,PORCINE 5,000 UNIT/ML 1 ML VIAL SQ SCH ×3 (08:01→23:44)
[2018-04-07] MEDS: TOPIRAMATE 25 MG TAB PO SCH ×2 (08:01→20:29)
[2018-04-07] MEDS: PIPERACILLIN-TAZOBACTAM 3.375 GM in SODIUM CHLORIDE 0.9% 100 ML IVPB SCH ×3 (09:45→23:44)
[2018-04-07 12:15] LABS: Glucose,Whole Blood 80 mg/dL (75-99)
[2018-04-07 12:15] LABS: Glucose,Whole Blood 64 mg/dL (75-99)
[2018-04-07] MEDS: NYSTATIN 100,000 UNIT/GM POWD 15 GM TOPICAL SCH ×2 (13:23→20:29)
[2018-04-07] MEDS: SILVER sulfADIAZINE Cream 400 GM 1 APPLIC APPLIC TOPICAL SCH (13:24)
--- NOTE | 2018-04-07 14:39 | P.PN ---
Subjective Progress Note Date: 04/07/18 Principal diagnosis: Weakness, fall This is a pleasant 62-year-old female patient who follows with Dr. Moreno as her primary care physician. 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 Lifelong nonsmoker. The patient's had been out of town however her daughter was checking in on her daily by phone. The got home around 11:30 PM last night all the lights were off the patient was found lying on the floor next to her bed. EMS was called and he was found to be febrile, tachycardic and hyperglycemic she was transferred here for the same. CT brain revealed no acute intracranial abnormality. Chest x-ray reveals interstitial he and hazy opacities throughout the lungs with possible pulmonary vascular congestion and pulmonary edema. White count 16.5. Hemoglobin 11.0. Creatinine 0.67. Glucose 300, lactic acid 4.7. She is seen today in consultation in the emergency room. She is awake and alert in no acute distress. She is quite dry and a weak voice. Most recent lactic acid 3.1. He has received vancomycin and cefepime. She has received 2 L of IV fluid resuscitation. 9 normal saline at 150 ML's per hour. Patient does have a drinking green area of her right great toe. There is also significant cellulitis and edema of the lower extremities right greater than left. She did present with a T-max of 103. Currently 98.9. Hemodynamically stable. Not requiring any pressors. O2 saturations in the high 90s on room air. The patient is seen again today 04/07/2018 in follow-up on the intensive care unit. She is currently awake and alert in no acute distress. She is maintaining good O2 saturations in the 90s on room air. She is sitting up in a chair at the bedside. She is stronger today. Her voice is stronger as well. Blood and urine cultures are pending. White count 14.3. Hemoglobin 10.0. Creatinine 1.82. Bicarb 20. C. difficile screen negative. Doppler of the lower extremities were negative for DVT. Extremities elevated. Sina wraps on. She remains on Zosyn and vancomycin. Objective - Vital Signs Vital signs: Vital Signs Temp 98.3 F 04/07/18 04:00 Pulse 102 H 04/07/18 07:00 Resp 13 04/07/18 07:00 BP 102/75 04/07/18 07:00 Pulse Ox 93 L 04/07/18 07:00 Intake & Output 04/06/18 04/07/18 04/07/18 18:59 06:59 18:59 Intake Total 2700 3050 317 Output Total 214 1500 200 Balance 2486 1550 117 Weight 143.8 kg 143.8 kg Intake: IV 600 3050 317 .9 958 621 8328 150 Magnesium Sulfate-D5w Pmx 300 1 gm In Dextrose/Water 1 100ml.bag @ 100 mls/hr IVPB Q1H [facility] Rx#: [id number] Piperacillin-Tazobactam 3 100 .375 gm In Sodium Chloride 0.9% 100 ml @ 25 mls/hr IVPB Q8HR [facility] Rx# :[id number] Sodium Chloride 0.9% 1, 1000 000 ml @ 999 mls/hr IV . Q1H1M [facility] Rx#:[id number] Vancomycin 2,000 mg In 167 Sodium Chloride 0.9% 500 ml 500 ml @ 167 mls/hr IVPB Q24H [facility] Rx#: [id number] Amount of Fluid Infused ( 2000 ml) Intake, IV Titration 100 Amount Piperacillin-Tazobactam 3 100 .375 gm In Sodium Chloride 0.9% 100 ml @ 25 mls/hr IVPB Q8HR [facility] Rx# :[id number] Output: Urine 214 1500 200 Other: Voiding Method Indwelling Catheter Indwelling Catheter # Bowel Movements 1 - Exam GENERAL EXAM: Morbidly obese. Alert, oriented, comfortable in no apparent distress. On room air. HEAD: Normocephalic. EYES: Normal reaction of pupils, equal size. NOSE: Clear with pink turbinates. THROAT: No erythema or exudates. NECK: No masses, no JVD. CHEST: No chest wall deformity. LUNGS: Equal air entry with crackles in the posterior bases, diminished. CVS: S1 and S2 normal with no audible murmur, regular rhythm. ABDOMEN: No hepatosplenomegaly, normal bowel sounds, no guarding or rigidity. SPINE: No scoliosis or deformity SKIN: Dry gangrene on the right toe. Cellulitis of the bilateral lower extremities right greater than left. CENTRAL NERVOUS SYSTEM: No focal deficits, tone is normal in all 4 extremities. EXTREMITIES: 2-3+ edema, suspect chronic, cellulitis. No clubbing, no cyanosis. Peripheral pulses are intact. - Labs CBC & Chem 7: 04/07/18 05:16 04/07/18 05:16 Labs: Abnormal Lab Results - Last 24 Hours (Table) 04/06/18 04/06/18 04/06/18 Range/Units 11:03 14:47 17:00 WBC (3.8-10.6) k/uL RBC (3.80-5.40) m/uL Hgb (11.4-16.0) gm/dL Hct (34.0-46.0) % Neutrophils # (Manual) (1.3-7.7) k/uL Lymphocytes # (Manual) (1.0-4.8) k/uL Chloride (98-107) mmol/L Carbon Dioxide (22-30) mmol/L BUN (7-17) mg/dL Creatinine (0.52-1.04) mg/dL Glucose (74-99) mg/dL POC Glucose (mg/dL) 156 H 211 H (75-99) mg/dL Hemoglobin A1c 9.1 H (4.0-6.0) % Calcium (8.4-10.2) mg/dL AST (14-36) U/L Total Protein (6.3-8.2) g/dL Albumin (3.5-5.0) g/dL 04/06/18 04/07/18 04/07/18 Range/Units 20:35 01:30 05:16 WBC 14.3 H (3.8-10.6) k/uL RBC 3.26 L (3.80-5.40) m/uL Hgb 10.0 L (11.4-16.0) gm/dL Hct 31.9 L (34.0-46.0) % Neutrophils # (Manual) 13.10 H (1.3-7.7) k/uL Lymphocytes # (Manual) 0.57 L (1.0-4.8) k/uL Chloride (98-107) mmol/L Carbon Dioxide (22-30) mmol/L BUN (7-17) mg/dL Creatinine (0.52-1.04) mg/dL Glucose (74-99) mg/dL POC Glucose (mg/dL) 143 H 116 H (75-99) mg/dL Hemoglobin A1c (4.0-6.0) % Calcium (8.4-10.2) mg/dL AST (14-36) U/L Total Protein (6.3-8.2) g/dL Albumin (3.5-5.0) g/dL 04/07/18 04/07/18 04/07/18 Range/Units 05:16 06:56 07:06 WBC (3.8-10.6) k/uL RBC (3.80-5.40) m/uL Hgb (11.4-16.0) gm/dL Hct (34.0-46.0) % Neutrophils # (Manual) (1.3-7.7) k/uL Lymphocytes # (Manual) (1.0-4.8) k/uL Chloride 111 H (98-107) mmol/L Carbon Dioxide 20 L (22-30) mmol/L BUN 39 H (7-17) mg/dL Creatinine 1.82 H (0.52-1.04) mg/dL Glucose 65 L (74-99) mg/dL POC Glucose (mg/dL) 64 L 63 L (75-99) mg/dL Hemoglobin A1c (4.0-6.0) % Calcium 7.4 L (8.4-10.2) mg/dL AST 76 H (14-36) U/L Total Protein 5.3 L (6.3-8.2) g/dL Albumin 2.3 L (3.5-5.0) g/dL 04/07/18 Range/Units 11:49 WBC (3.8-10.6) k/uL RBC (3.80-5.40) m/uL Hgb (11.4-16.0) gm/dL Hct (34.0-46.0) % Neutrophils # (Manual) (1.3-7.7) k/uL Lymphocytes # (Manual) (1.0-4.8) k/uL Chloride (98-107) mmol/L Carbon Dioxide (22-30) mmol/L BUN (7-17) mg/dL Creatinine (0.52-1.04) mg/dL Glucose (74-99) mg/dL POC Glucose (mg/dL) 64 L (75-99) mg/dL Hemoglobin A1c (4.0-6.0) % Calcium (8.4-10.2) mg/dL AST (14-36) U/L Total Protein (6.3-8.2) g/dL Albumin (3.5-5.0) g/dL Microbiology - Last 24 Hours (Table) 04/06/18 02:20 Blood Culture - Preliminary Blood No Growth after 24 hours 04/06/18 05:05 Urine Culture - Preliminary Urine,Voided Assessment and Plan Assessment: Impression: #1 Profound weakness with fall of unclear etiology suspect secondary to sepsis secondary to lower extremity cellulitis right greater than left. Venous Doppler negative for DVT. #2 Sepsis with lactic acidosis secondary to lower extremity cellulitis. Currently on vancomycin and Zosyn. #3 Acute on chronic renal failure and history of stage III chronic kidney disease. #4 Lactic acidosis secondary to above. #5 Rhabdomyolysis after prolonged downtime found on floor. #6 Profound weakness secondary to above. #7 Hyperglycemia in a patient with a known history of diabetes mellitus, type II. #8 History of CVA 2 with residual left-sided weakness. #9 Morbid obesity. #10 Obstructive sleep apnea AHI of 16, not on CPAP in the outpatient setting. #11 Rheumatoid arthritis. #12 Hypertension. #13 Wound of the right great toe, suspect dry gangrene. #14 History of gastric sleeve in October 2014. Plan: The patient was seen and evaluated by Dr. Ragland. Venous Doppler lower extremities negative. Labs reviewed. She is maintained on vancomycin and Zosyn. On room air. We will increase her activity as tolerated. We'll continue to follow and make further recommendations based on her clinical status. I, the cosigning physician, performed a history & physical examination of the patient. Lungs sounds faint crackles in the posterior bases. Maintaining good O2 saturations in the 90s on room air. I discussed the assessment and plan of care with my nurse practitioner, Lilian Marmolejo. I attest to the above note as dictated by her.
--- NOTE | 2018-04-07 15:10 | P.PN ---
Subjective 62-year-old female was admitted secondary to sepsis from right lower limb cellulitis, diabetic foot ulcers. Patient is presently on Zosyn and vancomycin patient's serum creatinine is bit worse probably from the Lasix she received as today patient is presently on 1 50 mL of normal saline. Doppler of the right lower extremity did not show any DVT. Patient did receive IV Lasix as today because of which her kidney function has worsened a bit. Patient overall appears to have improved more responsive. Patient is complaining of for odynophagia, does appear to have oral thrush Will use nystatin swish and swallow for now and will let infectious disease no about these complaints Constitutional: Denied any fatigue denied any fever. Cardio vascular: denied any chest pain, palpitations Gastrointestinal denied any nausea vomiting Pulmonary: Denied any shortness of breath cough Neurologic denied any new focal deficits All inpatient medications were reviewed and appropriate changes in these medications as dictated in the interval history and assessment and plan. Objective - Vital Signs Vital signs: Vital Signs Temp 98.3 F 04/07/18 04:00 Pulse 102 H 04/07/18 07:00 Resp 13 04/07/18 07:00 BP 102/75 04/07/18 07:00 Pulse Ox 93 L 04/07/18 07:00 Intake & Output 04/06/18 04/07/18 04/07/18 18:59 06:59 18:59 Intake Total 2700 3050 317 Output Total 214 1500 200 Balance 2486 1550 117 Weight 143.8 kg 143.8 kg Intake: IV 600 3050 317 .9 569 234 3952 150 Magnesium Sulfate-D5w Pmx 300 1 gm In Dextrose/Water 1 100ml.bag @ 100 mls/hr IVPB Q1H [facility] Rx#: [id number] Piperacillin-Tazobactam 3 100 .375 gm In Sodium Chloride 0.9% 100 ml @ 25 mls/hr IVPB Q8HR [facility] Rx# :[id number] Sodium Chloride 0.9% 1, 1000 000 ml @ 999 mls/hr IV . Q1H1M [facility] Rx#:[id number] Vancomycin 2,000 mg In 167 Sodium Chloride 0.9% 500 ml 500 ml @ 167 mls/hr IVPB Q24H [facility] Rx#: [id number] Amount of Fluid Infused ( 2000 ml) Intake, IV Titration 100 Amount Piperacillin-Tazobactam 3 100 .375 gm In Sodium Chloride 0.9% 100 ml @ 25 mls/hr IVPB Q8HR [facility] Rx# :[id number] Output: Urine 214 1500 200 Other: Voiding Method Indwelling Catheter Indwelling Catheter # Bowel Movements 1 - Exam PHYSICAL EXAMINATION: GENERAL: The patient is alert and oriented x3, not in any acute distress. Obese HEENT: Pupils are round and equally reacting to light. EOMI. No scleral icterus. No conjunctival pallor. Normocephalic, atraumatic. No pharyngeal erythema. No thyromegaly. CARDIOVASCULAR: S1 and S2 present. No murmurs, rubs, or gallops. PULMONARY: Chest is clear to auscultation, no wheezing or crackles. ABDOMEN: Soft, nontender, nondistended, normoactive bowel sounds. No palpable organomegaly. MUSCULOSKELETAL: No joint swelling or deformity. EXTREMITIES: No cyanosis, clubbing, patient has bilateral pedal edema with redness significant in the right lower extremity with local is of temperature patient has multiple ulcerations in both legs significant one in the right lower extremity which is stage III to for ulceration NEUROLOGICAL: Gross neurological examination did not reveal any focal deficits. SKIN: As mentioned above - Labs CBC & Chem 7: 04/07/18 05:16 04/07/18 05:16 Labs: Abnormal Lab Results - Last 24 Hours (Table) 04/06/18 04/06/18 04/06/18 Range/Units 11:03 14:47 17:00 WBC (3.8-10.6) k/uL RBC (3.80-5.40) m/uL Hgb (11.4-16.0) gm/dL Hct (34.0-46.0) % Neutrophils # (Manual) (1.3-7.7) k/uL Lymphocytes # (Manual) (1.0-4.8) k/uL Chloride (98-107) mmol/L Carbon Dioxide (22-30) mmol/L BUN (7-17) mg/dL Creatinine (0.52-1.04) mg/dL Glucose (74-99) mg/dL POC Glucose (mg/dL) 156 H 211 H (75-99) mg/dL Hemoglobin A1c 9.1 H (4.0-6.0) % Calcium (8.4-10.2) mg/dL AST (14-36) U/L Total Protein (6.3-8.2) g/dL Albumin (3.5-5.0) g/dL 04/06/18 04/07/18 04/07/18 Range/Units 20:35 01:30 05:16 WBC 14.3 H (3.8-10.6) k/uL RBC 3.26 L (3.80-5.40) m/uL Hgb 10.0 L (11.4-16.0) gm/dL Hct 31.9 L (34.0-46.0) % Neutrophils # (Manual) 13.10 H (1.3-7.7) k/uL Lymphocytes # (Manual) 0.57 L (1.0-4.8) k/uL Chloride (98-107) mmol/L Carbon Dioxide (22-30) mmol/L BUN (7-17) mg/dL Creatinine (0.52-1.04) mg/dL Glucose (74-99) mg/dL POC Glucose (mg/dL) 143 H 116 H (75-99) mg/dL Hemoglobin A1c (4.0-6.0) % Calcium (8.4-10.2) mg/dL AST (14-36) U/L Total Protein (6.3-8.2) g/dL Albumin (3.5-5.0) g/dL 04/07/18 04/07/18 04/07/18 Range/Units 05:16 06:56 07:06 WBC (3.8-10.6) k/uL RBC (3.80-5.40) m/uL Hgb (11.4-16.0) gm/dL Hct (34.0-46.0) % Neutrophils # (Manual) (1.3-7.7) k/uL Lymphocytes # (Manual) (1.0-4.8) k/uL Chloride 111 H (98-107) mmol/L Carbon Dioxide 20 L (22-30) mmol/L BUN 39 H (7-17) mg/dL Creatinine 1.82 H (0.52-1.04) mg/dL Glucose 65 L (74-99) mg/dL POC Glucose (mg/dL) 64 L 63 L (75-99) mg/dL Hemoglobin A1c (4.0-6.0) % Calcium 7.4 L (8.4-10.2) mg/dL AST 76 H (14-36) U/L Total Protein 5.3 L (6.3-8.2) g/dL Albumin 2.3 L (3.5-5.0) g/dL 04/07/18 Range/Units 11:49 WBC (3.8-10.6) k/uL RBC (3.80-5.40) m/uL Hgb (11.4-16.0) gm/dL Hct (34.0-46.0) % Neutrophils # (Manual) (1.3-7.7) k/uL Lymphocytes # (Manual) (1.0-4.8) k/uL Chloride (98-107) mmol/L Carbon Dioxide (22-30) mmol/L BUN (7-17) mg/dL Creatinine (0.52-1.04) mg/dL Glucose (74-99) mg/dL POC Glucose (mg/dL) 64 L (75-99) mg/dL Hemoglobin A1c (4.0-6.0) % Calcium (8.4-10.2) mg/dL AST (14-36) U/L Total Protein (6.3-8.2) g/dL Albumin (3.5-5.0) g/dL Microbiology - Last 24 Hours (Table) 04/06/18 02:20 Blood Culture - Preliminary Blood No Growth after 24 hours 04/06/18 05:05 Urine Culture - Preliminary Urine,Voided Assessment and Plan Plan: -Sepsis secondary to diabetic foot infection diabetic foot ulcer and cellulitis , patient has severe sepsis for which patient is on IV fluids as mentioned above vancomycin and Zosyn and wound cultures are pending patient will be transferred to ICU -Type 2 diabetes mellitus with fairly well-controlled blood sugars patient will be resumed on her home regimen along with sliding scale insulin -Acute renal failure on chronic kidney disease stage III chronic kidney disease is secondary to diabetic nephropathy acute renal failure secondary to sepsis at possibly acute tubular necrosis nonoliguric IV fluids will be continued as mentioned above -CVA TIA in the past patient is on both aspirin and Plavix, Aspin will be continued Plavix will be held -Gastroesophageal reflux disease -Sleep apnea and doesn't use CPAP machine at home -Depression for above-mentioned chronic medical problems patient will be resumed and continued on appropriate home medications -Odynophagia: Probably secondary to fungal esophagitis
[2018-04-07] MEDS ORDERED: PHYTONADIONE 10 MG in SODIUM CHLORIDE 0.9% 50 ML IVPB STA (15:11)
[2018-04-07 17:12] LABS: Glucose,Whole Blood 85 mg/dL (75-99)
--- NOTE | 2018-04-07 20:19 | P.PN ---
Subjective Progress Note Date: 04/07/18 This is a 62-year-old female last seen in January 2016 for cellulitis of the left leg with a long-standing history of obesity as well as rheumatoid arthritis, uncontrolled diabetes mellitus. Patient states that she has had fever, chills, swelling on her right side of her face along with her right ear and a sore throat for about one week. Her went to the [facility] and was gone for 4 days. He came home yesterday evening around 11:30 and found her on the floor next to the bed and appeared that she had fallen. He calculated that she must have been on the floor for about 5 hours. Initially, she was barely able to talk and there was some mental status changes. She had extreme weakness, injured the left toes but no other injury was noted. Patient did have a life alert on but apparently did not use it. He checked her blood sugar was 326. He also gives history that the patient has a chronic diabetic ulcer to the right great toe that has been under the care of Dr. Chiu and Shane for the past 6 months with no improvement. Patient apply some type of ointment daily and wraps it. Dr. Chiu does debridements. Patient also has wounds to the left lower leg from scratching. She has chronic lymphedema but the right leg is brighter red now than normal. Patient thinks her last hemoglobin A1c was in the eights down from 9+. Patient follows with Dr. Selwyn crowley for her diabetes. Patient also follows with Dr. Rocha for previous stroke with no residuals. Her contacted EMS and patient was brought in to [facility] emergency center. Temperature 103, heart rate 107, blood pressure 185/84 and pulse ox 96%. White count is 16.5, creatinine 1.67, blood sugars running in the 300s and 400s, initial lactic acid 3.4 with repeat of 4.7, CK 1265. Troponin was normal. Albumin 2.8. Urinalysis was cloudy, blood moderate, ketones trace. Influenza testing negative. Acetone negative. CAT scan of the brain showed no acute intracranial abnormality with stable chronic small vessel ischemic change. Chest x-ray showed pulmonary vascular congestion, infectious or inflammatory process not excluded. Patient was provided 2 L of IV fluid, ceftriaxone, cefepime, vancomycin, Tylenol and insulin and admitted to the cardiac stepdown unit. Patient is currently waiting in the ER for a bed on the unit. 04/07/2018 reveals the patient to be feeling slightly better today. Her level of confusion is improved. She is definitely able to converse much more readily. She still has some discomforts especially to her legs which are chronically bother her in a source of chronic pain for which she takes Percocet at home. Also has complaints of some right ear pain and some discomfort to the right side of her face that's actually improving since yesterday. She is unaware of any fevers or chills. No rigors. Mouth is dry but she's been able to eat between 50 and 75% of her tray. Objective - Vital Signs Vital signs: Vital Signs Temp 97.9 F 04/07/18 16:00 Pulse 84 04/07/18 16:00 Resp 16 04/07/18 16:00 BP 120/49 04/07/18 16:00 Pulse Ox 93 L 04/07/18 08:00 Intake & Output 04/07/18 04/07/18 04/08/18 06:59 18:59 06:59 Intake Total 3050 3947 Output Total 1500 1235 Balance 1550 2712 Weight 143.8 kg 143.8 kg Intake: IV 3050 2017 .9 150 1650 1500 Magnesium Sulfate-D5w Pmx 300 1 gm In Dextrose/Water 1 100ml.bag @ 100 mls/hr IVPB Q1H [facility] Rx#: [id number] Piperacillin-Tazobactam 3 100 100 .375 gm In Sodium Chloride 0.9% 100 ml @ 25 mls/hr IVPB Q8HR [facility] Rx# :[id number] Sodium Chloride 0.9% 1, 1000 000 ml @ 999 mls/hr IV . Q1H1M [facility] Rx#:[id number] Vancomycin 2,000 mg In 417 Sodium Chloride 0.9% 500 ml 500 ml @ 167 mls/hr IVPB Q24H [facility] Rx#: [id number] Oral 1930 Output: Urine 1500 1235 Other: Voiding Method Indwelling Catheter Indwelling Catheter # Bowel Movements 1 - Exam GEN: Morbidly obese 62-year-old woman sitting up on the ER stretcher. She is currently afebrile HEENT: Anicteric conjunctiva are pink and moist nasal mucosa grossly intact without significant lesions, there is no thrush. Full denture. There is mild erythema and edema to the right side of her face and significant edema and redness to the right ear. Auditory canal seems to be without internal edema or erythema. No lesion noted Neck: The neck is supple without significant lymphadenopathy or thyromegaly. Lungs: Good bilateral air entry without significant crackles or wheezing. There is no significant bronchial sounds. Heart: Regular rate and rhythm with an audible S1-S2, no S3 no S4. There is no significant murmur. Abdomen: Obese, Positive bowel sounds soft and nontender without palpable masses or organomegaly. There was no guarding or rebound. Erythema under her abdominal fold. Extremities: The upper extremities have excellent pulses they are symmetric, no significant petechiae or telangiectasia. No splinter hemorrhages were noted. The bilateral extremities show evidence of the chronic lower extremity edema and lymphedema. To the right great toe plantar there is a chronic diabetic ulcer with scant amount of drainage. On the right lower extremity there is significant edema and erythema with warmth. Left lower extremity has linear- type lesions to the lower pretibial area. Abrasions to the toes on the left foot. Neuro: Awake alert oriented to person place and time. improved over the last day - Labs CBC & Chem 7: 04/07/18 05:16 04/07/18 05:16 Labs: Abnormal Lab Results - Last 24 Hours (Table) 04/06/18 04/07/18 04/07/18 Range/Units 20:35 01:30 05:16 WBC 14.3 H (3.8-10.6) k/uL RBC 3.26 L (3.80-5.40) m/uL Hgb 10.0 L (11.4-16.0) gm/dL Hct 31.9 L (34.0-46.0) % Neutrophils # (Manual) 13.10 H (1.3-7.7) k/uL Lymphocytes # (Manual) 0.57 L (1.0-4.8) k/uL Chloride (98-107) mmol/L Carbon Dioxide (22-30) mmol/L BUN (7-17) mg/dL Creatinine (0.52-1.04) mg/dL Glucose (74-99) mg/dL POC Glucose (mg/dL) 143 H 116 H (75-99) mg/dL Calcium (8.4-10.2) mg/dL AST (14-36) U/L Total Protein (6.3-8.2) g/dL Albumin (3.5-5.0) g/dL 04/07/18 04/07/18 04/07/18 Range/Units 05:16 06:56 07:06 WBC (3.8-10.6) k/uL RBC (3.80-5.40) m/uL Hgb (11.4-16.0) gm/dL Hct (34.0-46.0) % Neutrophils # (Manual) (1.3-7.7) k/uL Lymphocytes # (Manual) (1.0-4.8) k/uL Chloride 111 H (98-107) mmol/L Carbon Dioxide 20 L (22-30) mmol/L BUN 39 H (7-17) mg/dL Creatinine 1.82 H (0.52-1.04) mg/dL Glucose 65 L (74-99) mg/dL POC Glucose (mg/dL) 64 L 63 L (75-99) mg/dL Calcium 7.4 L (8.4-10.2) mg/dL AST 76 H (14-36) U/L Total Protein 5.3 L (6.3-8.2) g/dL Albumin 2.3 L (3.5-5.0) g/dL 04/07/18 Range/Units 11:49 WBC (3.8-10.6) k/uL RBC (3.80-5.40) m/uL Hgb (11.4-16.0) gm/dL Hct (34.0-46.0) % Neutrophils # (Manual) (1.3-7.7) k/uL Lymphocytes # (Manual) (1.0-4.8) k/uL Chloride (98-107) mmol/L Carbon Dioxide (22-30) mmol/L BUN (7-17) mg/dL Creatinine (0.52-1.04) mg/dL Glucose (74-99) mg/dL POC Glucose (mg/dL) 64 L (75-99) mg/dL Calcium (8.4-10.2) mg/dL AST (14-36) U/L Total Protein (6.3-8.2) g/dL Albumin (3.5-5.0) g/dL Microbiology - Last 24 Hours (Table) 04/06/18 02:20 Blood Culture - Preliminary Blood No Growth after 24 hours 04/06/18 05:05 Urine Culture - Preliminary Urine,Voided Laboratory Results WBC 14.3 k/uL (3.8-10.6) H 04/07/18 05:16 RBC 3.26 m/uL (3.80-5.40) L 04/07/18 05:16 Hgb 10.0 gm/dL (11.4-16.0) L 04/07/18 05:16 Hct 31.9 % (34.0-46.0) L 04/07/18 05:16 MCV 97.8 fL (80.0-100.0) 04/07/18 05:16 MCH 30.6 pg (25.0-35.0) 04/07/18 05:16 MCHC 31.3 g/dL (31.0-37.0) 04/07/18 05:16 RDW 14.1 % (11.5-15.5) 04/07/18 05:16 Plt Count 180 k/uL (150-450) 04/07/18 05:16 Neutrophils % (Manual) 64 % 04/07/18 05:16 Band Neutrophils % 28 % 04/07/18 05:16 Lymphocytes % (Manual) 4 % 04/07/18 05:16 Monocytes % (Manual) 3 % 04/07/18 05:16 Basophils % (Manual) 1 % 04/07/18 05:16 Metamyelocytes % 13 % 04/06/18 07:00 Myelocytes % 3 % 04/06/18 07:00 Neutrophils # (Manual) 13.10 k/uL (1.3-7.7) H 04/07/18 05:16 Lymphocytes # (Manual) 0.57 k/uL (1.0-4.8) L 04/07/18 05:16 Monocytes # (Manual) 0.43 k/uL (0-1.0) 04/07/18 05:16 Basophils # (Manual) 0.14 k/uL (0-0.2) 04/07/18 05:16 Metamyelocytes # (Man) 2.15 k/uL (0) H 04/06/18 07:00 Myelocytes # (Manual) 0.50 k/uL (0) H 04/06/18 07:00 Nucleated RBCs 0 /100 WBC (0-0) 04/07/18 05:16 Manual Slide Review Performed 04/07/18 05:16 Toxic Granulation Present 04/06/18 07:00 Hypochromasia Marked 04/07/18 05:16 PT 11.5 sec (9.0-12.0) 04/06/18 02:20 INR 1.1 (<1.2) 04/06/18 02:20 APTT 24.7 sec (22.0-30.0) 04/06/18 02:20 VBG pH 7.25 (7.31-7.41) L 04/06/18 02:20 VBG pCO2 41 mmHg (37-51) 04/06/18 02:20 VBG HCO3 17 mmol/L (24-28) L 04/06/18 02:20 Sodium 138 mmol/L (137-145) 04/07/18 05:16 Potassium 3.8 mmol/L (3.5-5.1) 04/07/18 05:16 Chloride 111 mmol/L (98-107) H 04/07/18 05:16 Carbon Dioxide 20 mmol/L (22-30) L 04/07/18 05:16 Anion Gap 7 mmol/L 04/07/18 05:16 BUN 39 mg/dL (7-17) H 04/07/18 05:16 Creatinine 1.82 mg/dL (0.52-1.04) H 04/07/18 05:16 Est GFR (CKD-EPI)AfAm 34 (>60 ml/min/1.73 sqM) 04/07/18 05:16 Est GFR (CKD-EPI)NonAf 29 (>60 ml/min/1.73 sqM) 04/07/18 05:16 Glucose 65 mg/dL (74-99) L 04/07/18 05:16 POC Glucose (mg/dL) 85 mg/dL (75-99) 04/07/18 16:59 POC Glu Net Developer Architect ID 04/07/18 16:[address] Glu mg/dL 214 04/06/18 11:03 Hemoglobin A1c 9.1 % (4.0-6.0) H 04/06/18 11:03 Lactic Ac Sepsis Rflx Y 04/06/18 07:25 Plasma Lactic Acid Flex 3.1 mmol/L (0.7-2.0) H* 04/06/18 11:03 Calcium 7.4 mg/dL (8.4-10.2) L 04/07/18 05:16 Magnesium 2.0 mg/dL (1.6-2.3) 04/07/18 05:16 Total Bilirubin 0.6 mg/dL (0.2-1.3) 04/07/18 05:16 AST 76 U/L (14-36) H 04/07/18 05:16 ALT 35 U/L (9-52) 04/07/18 05:16 Alkaline Phosphatase 106 U/L (38-126) 04/07/18 05:16 Creatine Kinase 1265 U/L (30-135) H* 04/06/18 02:20 CK-MB (CK-2) 3.3 ng/mL (0.0-2.4) H 04/06/18 02:20 Troponin I <0.012 ng/mL (0.000-0.034) 04/06/18 02:20 Total Protein 5.3 g/dL (6.3-8.2) L 04/07/18 05:16 Albumin 2.3 g/dL (3.5-5.0) L 04/07/18 05:16 Urine Color Yellow 04/06/18 05:05 Urine Appearance Cloudy (Clear) H 04/06/18 05:05 Urine pH 5.0 (5.0-8.0) 04/06/18 05:05 Ur Specific [place] 1.016 (1.001-1.035) 04/06/18 05:05 Urine Protein 2+ (Negative) H 04/06/18 05:05 Urine Glucose (UA) 3+ (Negative) H 04/06/18 05:05 Urine Ketones Trace (Negative) H 04/06/18 05:05 Urine Blood Moderate (Negative) H 04/06/18 05:05 Urine Nitrite Negative (Negative) 04/06/18 05:05 Urine Bilirubin Negative (Negative) 04/06/18 05:05 Urine Urobilinogen <2.0 mg/dL (<2.0) 04/06/18 05:05 Ur Leukocyte Esterase Negative (Negative) 04/06/18 05:05 Urine RBC 4 /hpf (0-5) 04/06/18 05:05 Urine WBC 32 /hpf (0-5) H 04/06/18 05:05 Ur Squamous Epith Cells 2 /hpf (0-4) 04/06/18 05:05 Hyaline Casts 12 /lpf (0-2) H 04/06/18 05:05 Urine Mucus Rare /hpf (None) H 04/06/18 05:05 Acetone, Qual Negative (Negative) 04/06/18 02:20 C. difficile (EIA) Intrp Negative (Negative) 04/06/18 14:50 Influenza Type A RNA Not Detected (Not Detectd) 04/06/18 03:20 Influenza Type B (PCR) Not Detected (Not Detectd) 04/06/18 03:20 Microbiology 04/06/18 02:20 Blood Blood Culture - Preliminary No Growth after 24 hours 04/06/18 05:05 Urine,Voided Urine Culture - Preliminary Assessment and Plan (1) Cellulitis Narrative/Plan: As has noted this obese woman was found by her on the floor after return from his trip up [place]. She was weak and dehydrated and unable to speak very well. She has had hydration with some improvement of her status. She still weak, her mouth is dry and does not feel well. As noted she has evidence of the extensive ulceration of the right foot plantar an injury to the left foot which is somewhat new as per the . Local wound care will be utilized the great toe with the medical honey and wrap in place. Request venous Doppler studies sure there is no clots. If there is no deep venous thrombosis week and then utilizes Silvadene wrap with compression to the bilateral lower extremities to help. The patient's relates that there are compression pumps in the home for her chronic edema that she simply doesn't use. Hopefully we'll be able to work with the discharge team to have evaluation the home potentially have new sequential sleeves that she can wear and help with her lower extremity edema. If she is not vascular surgery consultation this can be considered once her ulcerations improved which we will follow with the wound center after discharge. Antimicrobial therapy this was Zosyn and vancomycin for now until we have further data. There is a swelling to the right ear which the patient believes may be related to her inability to move and laying on it while she was on the floor. Otitis external often has Pseudomonas and constantly the Zosyn is appropriate at this time. 04/07/2018 finds the patient to be more awake alert and interactive. Has complaints of her chronic pain seems to be comfortable at the moment. Duplex scan since come back negative for deep venous thrombosis and consequently Silvadene the multilayer wraps and then applied to the bilateral lower extremities to help with her chronic edema. The wound care has been applied to the chronic ulceration to the right great toe with the silver alginate. Antibiotic therapy continues with Zosyn and vancomycin pending further culture data. Fortunately the significant swelling to the right ear and right face seems to have improved with current therapy. It is likely that she did suffer some difficulty with some pressure to the right side of face and the ear in the time that she was laying on the floor before she was brought to hospital. Current Visit: Yes Status: Acute Code(s): L03.90 - CELLULITIS, UNSPECIFIED SNOMED Code(s): 776261655 (2) Sepsis Current Visit: Yes Status: Acute Code(s): A41.9 - SEPSIS, UNSPECIFIED ORGANISM SNOMED Code(s): 58085069
[2018-04-07] MEDS: INSULIN DETEMIR (LEVEMIR) 100 UNIT/ML SYR SQ SCH (20:21)
[2018-04-07 20:31] LABS: Glucose,Whole Blood 115 mg/dL (75-99)
[2018-04-07 23:59] LABS: Glucose,Whole Blood 150 mg/dL (75-99)
[2018-04-08] MEDS: VANCOMYCIN 2,000 MG in SODIUM CHLORIDE 0.9% 500 ML 500 ML IVPB SCH (05:07)
[2018-04-08] MEDS: SODIUM CHLORIDE 0.9% 1,000 ML IV SCH ×4 (05:08→20:40)
[2018-04-08 06:01] LABS: Basophils % (A) 0 %; Eosinophils # (A) 0.1 k/uL (0-0.7); Eosinophils % (A) 1 %; HCT 29.6 % (34.0-46.0); HGB 9.1 gm/dL (11.4-16.0); Hypochromasia Marked; Lymphocytes % (A) 8 %; MCH 30.4 pg (25.0-35.0); MCHC 30.9 g/dL (31.0-37.0); MCV 98.4 fL (80.0-100.0); Mean Platelet Volume 6.9; Monocytes # (A) 0.3 k/uL (0-1.0); Monocytes % (A) 2 %; Neutrophils # (A) 11.4 k/uL (1.3-7.7); Neutrophils % (A) 88 %; Platelet Count 171 k/uL (150-450); RBC 3.01 m/uL (3.80-5.40); RDW 14.3 % (11.5-15.5); WBC 12.9 k/uL (3.8-10.6)
[2018-04-08 06:08] LABS: Calcium 7.3 mg/dL (8.4-10.2); Potassium 3.8 mmol/L (3.5-5.1)
[2018-04-08] MEDS: INSULIN ASPART (NovoLOG) 100 UNIT/ML VIAL SQ SCH ×5 (06:47→20:42)
[2018-04-08 06:53] LABS: Glucose,Whole Blood 257 mg/dL (75-99)
[2018-04-08] MEDS ORDERED: POTASSIUM CHLORIDE ER 20 MEQ TAB.ER PO SCH (07:00)
[2018-04-08 07:54] LABS: Glucose,Whole Blood 187 mg/dL (75-99)
[2018-04-08] MEDS: oxyCODONE-APAP 10-325MG 1 EACH TAB PO PRN ×3 (08:19→20:41)
[2018-04-08] MEDS: ASPIRIN 81 MG PO SCH (08:21)
[2018-04-08] MEDS: DULoxetine HCL 60 MG CAPSULE.DR PO SCH ×2 (08:21→20:42)
[2018-04-08] MEDS: PIPERACILLIN-TAZOBACTAM 3.375 GM in SODIUM CHLORIDE 0.9% 100 ML IVPB SCH ×2 (08:21→18:25)
[2018-04-08] MEDS: HEPARIN SODIUM,PORCINE 5,000 UNIT/ML 1 ML VIAL SQ SCH ×2 (08:21→18:26)
[2018-04-08] MEDS: CARVEDILOL 12.5 MG TAB PO SCH ×2 (08:21→18:25)
[2018-04-08] MEDS: PREGABALIN 75 MG CAP PO SCH ×3 (08:21→21:44)
[2018-04-08] MEDS: TOPIRAMATE 25 MG TAB PO SCH ×2 (08:21→20:42)
[2018-04-08] MEDS: NYSTATIN 100,000 UNIT/GM POWD 15 GM TOPICAL SCH ×2 (08:35→20:43)
[2018-04-08] MEDS: SILVER sulfADIAZINE Cream 400 GM 1 APPLIC APPLIC TOPICAL SCH (08:36)
[2018-04-08] MEDS ORDERED: INSULIN DETEMIR (LEVEMIR) 100 UNIT/ML SYR SQ STA (09:18)
[2018-04-08 10:55] LABS: Glucose,Whole Blood 112 mg/dL (75-99)
[2018-04-08 12:30] LABS: Glucose,Whole Blood 82 mg/dL (75-99)
--- NOTE | 2018-04-08 14:43 | P.PN ---
Subjective 62-year-old female was admitted secondary to sepsis from right lower limb cellulitis, diabetic foot ulcers. Patient is presently on Zosyn and vancomycin patient's serum creatinine is bit worse probably from the Lasix she received as today patient is presently on 1 50 mL of normal saline. Doppler of the right lower extremity did not show any DVT. Patient did receive IV Lasix as today because of which her kidney function has worsened a bit. Patient overall appears to have improved more responsive. Patient is complaining of for odynophagia, does appear to have oral thrush Will use nystatin swish and swallow for now and will let infectious disease no about these complaints 04/08/2018 Patient looks much better today in control overnight events still has odynophagia, it to discuss with infectious disease regarding flucanazole speech therapy evaluated the patient. Patient is sitting on the chair Constitutional: Denied any fatigue denied any fever. Cardio vascular: denied any chest pain, palpitations Gastrointestinal denied any nausea vomiting Pulmonary: Denied any shortness of breath cough Neurologic denied any new focal deficits All inpatient medications were reviewed and appropriate changes in these medications as dictated in the interval history and assessment and plan. Objective - Vital Signs Vital signs: Vital Signs Temp 98.2 F 04/08/18 12:00 Pulse 73 04/08/18 12:00 Resp 13 04/08/18 12:00 BP 118/80 04/08/18 12:00 Pulse Ox 96 04/08/18 12:00 Intake & Output 04/07/18 04/08/18 04/08/18 18:59 06:59 18:59 Intake Total 3947 2340 1800 Output Total 1235 755 Balance 2712 1585 1800 Weight 143.8 kg 148.3 kg Intake: IV 2017 1800 1800 .9 150 1500 1800 1200 Piperacillin-Tazobactam 3 100 0 100 .375 gm In Sodium Chloride 0.9% 100 ml @ 25 mls/hr IVPB Q8HR [facility] Rx# :[id number] Vancomycin 2,000 mg In 417 500 Sodium Chloride 0.9% 500 ml 500 ml @ 167 mls/hr IVPB Q24H [facility] Rx#: [id number] Oral 1930 540 Output: Urine 1235 755 Other: Voiding Method Indwelling Catheter Indwelling Catheter Bedside Commode # Voids 1 - Exam PHYSICAL EXAMINATION: GENERAL: The patient is alert and oriented x3, not in any acute distress. Obese HEENT: Pupils are round and equally reacting to light. EOMI. No scleral icterus. No conjunctival pallor. Normocephalic, atraumatic. No pharyngeal erythema. No thyromegaly. CARDIOVASCULAR: S1 and S2 present. No murmurs, rubs, or gallops. PULMONARY: Chest is clear to auscultation, no wheezing or crackles. ABDOMEN: Soft, nontender, nondistended, normoactive bowel sounds. No palpable organomegaly. MUSCULOSKELETAL: No joint swelling or deformity. EXTREMITIES: No cyanosis, clubbing, patient has bilateral pedal edema with redness significant in the right lower extremity with local is of temperature patient has multiple ulcerations in both legs significant one in the right lower extremity which is stage III to for ulceration patient's right leg is wrapped NEUROLOGICAL: Gross neurological examination did not reveal any focal deficits. SKIN: As mentioned above - Labs CBC & Chem 7: 04/08/18 05:09 04/08/18 05:09 Labs: Abnormal Lab Results - Last 24 Hours (Table) 04/07/18 04/07/18 04/08/18 Range/Units 20:20 23:48 05:09 WBC 12.9 H (3.8-10.6) k/uL RBC 3.01 L (3.80-5.40) m/uL Hgb 9.1 L (11.4-16.0) gm/dL Hct 29.6 L (34.0-46.0) % MCHC 30.9 L (31.0-37.0) g/dL Neutrophils # 11.4 H (1.3-7.7) k/uL Chloride (98-107) mmol/L Carbon Dioxide (22-30) mmol/L BUN (7-17) mg/dL Creatinine (0.52-1.04) mg/dL Glucose (74-99) mg/dL POC Glucose (mg/dL) 115 H 150 H (75-99) mg/dL Calcium (8.4-10.2) mg/dL 04/08/18 04/08/18 04/08/18 Range/Units 05:09 06:42 07:42 WBC (3.8-10.6) k/uL RBC (3.80-5.40) m/uL Hgb (11.4-16.0) gm/dL Hct (34.0-46.0) % MCHC (31.0-37.0) g/dL Neutrophils # (1.3-7.7) k/uL Chloride 110 H (98-107) mmol/L Carbon Dioxide 19 L (22-30) mmol/L BUN 40 H (7-17) mg/dL Creatinine 1.57 H (0.52-1.04) mg/dL Glucose 164 H (74-99) mg/dL POC Glucose (mg/dL) 257 H 187 H (75-99) mg/dL Calcium 7.3 L (8.4-10.2) mg/dL 04/08/18 Range/Units 10:44 WBC (3.8-10.6) k/uL RBC (3.80-5.40) m/uL Hgb (11.4-16.0) gm/dL Hct (34.0-46.0) % MCHC (31.0-37.0) g/dL Neutrophils # (1.3-7.7) k/uL Chloride (98-107) mmol/L Carbon Dioxide (22-30) mmol/L BUN (7-17) mg/dL Creatinine (0.52-1.04) mg/dL Glucose (74-99) mg/dL POC Glucose (mg/dL) 112 H (75-99) mg/dL Calcium (8.4-10.2) mg/dL Microbiology - Last 24 Hours (Table) 04/06/18 02:20 Blood Culture - Preliminary Blood No Growth after 48 hours 04/06/18 05:05 Urine Culture - Final Urine,Voided Assessment and Plan Plan: -Sepsis secondary to diabetic foot infection diabetic foot ulcer and cellulitis , patient has severe sepsis for which patient is on IV fluids as mentioned above vancomycin and Zosyn and wound cultures are pending patient probably can be transferred out of ICU. Infectious disease evaluated the patient -Type 2 diabetes mellitus with fairly well-controlled blood sugars patient will be resumed on her home regimen along with sliding scale insulin -Acute renal failure on chronic kidney disease stage III chronic kidney disease is secondary to diabetic nephropathy acute renal failure secondary to sepsis at possibly acute tubular necrosis nonoliguric IV fluids will be continued as mentioned above -CVA TIA in the past patient is on both aspirin and Plavix, Aspin will be continued Plavix will be held -Gastroesophageal reflux disease -Sleep apnea and doesn't use CPAP machine at home -Depression for above-mentioned chronic medical problems patient will be resumed and continued on appropriate home medications -Odynophagia: Probably secondary to fungal esophagitis
[2018-04-08 17:41] LABS: Glucose,Whole Blood 93 mg/dL (75-99)
--- NOTE | 2018-04-08 18:08 | P.PN ---
Subjective Progress Note Date: 04/08/18 Principal diagnosis: Weakness, fall This is a pleasant 62-year-old female patient who follows with Dr. Moreno as her primary care physician. 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 Lifelong nonsmoker. The patient's had been out of town however her daughter was checking in on her daily by phone. The got home around 11:30 PM last night all the lights were off the patient was found lying on the floor next to her bed. EMS was called and he was found to be febrile, tachycardic and hyperglycemic she was transferred here for the same. CT brain revealed no acute intracranial abnormality. Chest x-ray reveals interstitial he and hazy opacities throughout the lungs with possible pulmonary vascular congestion and pulmonary edema. White count 16.5. Hemoglobin 11.0. Creatinine 0.67. Glucose 300, lactic acid 4.7. She is seen today in consultation in the emergency room. She is awake and alert in no acute distress. She is quite dry and a weak voice. Most recent lactic acid 3.1. He has received vancomycin and cefepime. She has received 2 L of IV fluid resuscitation. 9 normal saline at 150 ML's per hour. Patient does have a drinking green area of her right great toe. There is also significant cellulitis and edema of the lower extremities right greater than left. She did present with a T-max of 103. Currently 98.9. Hemodynamically stable. Not requiring any pressors. O2 saturations in the high 90s on room air. The patient is seen again today 04/07/2018 in follow-up on the intensive care unit. She is currently awake and alert in no acute distress. She is maintaining good O2 saturations in the 90s on room air. She is sitting up in a chair at the bedside. She is stronger today. Her voice is stronger as well. Blood and urine cultures are pending. White count 14.3. Hemoglobin 10.0. Creatinine 1.82. Bicarb 20. C. difficile screen negative. Doppler of the lower extremities were negative for DVT. Extremities elevated. Sina wraps on. She remains on Zosyn and vancomycin. The patient is seen again today 04/08/2017 in follow-up in the intensive care unit. She is more awake and alert today as compared to yesterday. Her voice is stronger today as well. She is tolerating some liquid diet. He denies any worsening shortness of breath, cough or congestion. She is maintaining good O2 saturations in the upper 90s on room air. She's been afebrile. Hemodynamically stable. Blood and urine culture reveals no growth. She remains on vancomycin and Zosyn. Silvadene cream to the lower extremities. Heparin for DVT prophylaxis. Objective - Vital Signs Vital signs: Vital Signs Temp 98.2 F 04/08/18 12:00 Pulse 73 04/08/18 12:00 Resp 13 04/08/18 12:00 BP 118/80 04/08/18 12:00 Pulse Ox 96 04/08/18 12:00 Intake & Output 04/07/18 04/08/18 04/08/18 18:59 06:59 18:59 Intake Total 3947 2340 1800 Output Total 1235 755 Balance 2712 1585 1800 Weight 143.8 kg 148.3 kg Intake: IV 2017 1800 1800 .9 150 1500 1800 1200 Piperacillin-Tazobactam 3 100 0 100 .375 gm In Sodium Chloride 0.9% 100 ml @ 25 mls/hr IVPB Q8HR [facility] Rx# :[id number] Vancomycin 2,000 mg In 417 500 Sodium Chloride 0.9% 500 ml 500 ml @ 167 mls/hr IVPB Q24H [facility] Rx#: [id number] Oral 1930 540 Output: Urine 1235 755 Other: Voiding Method Indwelling Catheter Indwelling Catheter Bedside Commode # Voids 1 - Exam GENERAL EXAM: Morbidly obese. Alert, oriented, comfortable in no apparent distress. On room air. HEAD: Normocephalic. EYES: Normal reaction of pupils, equal size. NOSE: Clear with pink turbinates. THROAT: No erythema or exudates. NECK: No masses, no JVD. CHEST: No chest wall deformity. LUNGS: Equal air entry with crackles in the posterior bases, diminished. CVS: S1 and S2 normal with no audible murmur, regular rhythm. ABDOMEN: No hepatosplenomegaly, normal bowel sounds, no guarding or rigidity. SPINE: No scoliosis or deformity SKIN: Dry gangrene on the right toe. Cellulitis of the bilateral lower extremities right greater than left. CENTRAL NERVOUS SYSTEM: No focal deficits, tone is normal in all 4 extremities. EXTREMITIES: 2-3+ edema, suspect chronic, cellulitis. Sina wraps to lower extremities. No clubbing, no cyanosis. Peripheral pulses are intact. - Labs CBC & Chem 7: 04/08/18 05:09 04/08/18 05:09 Labs: Abnormal Lab Results - Last 24 Hours (Table) 04/07/18 04/07/18 04/08/18 Range/Units 20:20 23:48 05:09 WBC 12.9 H (3.8-10.6) k/uL RBC 3.01 L (3.80-5.40) m/uL Hgb 9.1 L (11.4-16.0) gm/dL Hct 29.6 L (34.0-46.0) % MCHC 30.9 L (31.0-37.0) g/dL Neutrophils # 11.4 H (1.3-7.7) k/uL Chloride (98-107) mmol/L Carbon Dioxide (22-30) mmol/L BUN (7-17) mg/dL Creatinine (0.52-1.04) mg/dL Glucose (74-99) mg/dL POC Glucose (mg/dL) 115 H 150 H (75-99) mg/dL Calcium (8.4-10.2) mg/dL 04/08/18 04/08/18 04/08/18 Range/Units 05:09 06:42 07:42 WBC (3.8-10.6) k/uL RBC (3.80-5.40) m/uL Hgb (11.4-16.0) gm/dL Hct (34.0-46.0) % MCHC (31.0-37.0) g/dL Neutrophils # (1.3-7.7) k/uL Chloride 110 H (98-107) mmol/L Carbon Dioxide 19 L (22-30) mmol/L BUN 40 H (7-17) mg/dL Creatinine 1.57 H (0.52-1.04) mg/dL Glucose 164 H (74-99) mg/dL POC Glucose (mg/dL) 257 H 187 H (75-99) mg/dL Calcium 7.3 L (8.4-10.2) mg/dL 04/08/18 Range/Units 10:44 WBC (3.8-10.6) k/uL RBC (3.80-5.40) m/uL Hgb (11.4-16.0) gm/dL Hct (34.0-46.0) % MCHC (31.0-37.0) g/dL Neutrophils # (1.3-7.7) k/uL Chloride (98-107) mmol/L Carbon Dioxide (22-30) mmol/L BUN (7-17) mg/dL Creatinine (0.52-1.04) mg/dL Glucose (74-99) mg/dL POC Glucose (mg/dL) 112 H (75-99) mg/dL Calcium (8.4-10.2) mg/dL Microbiology - Last 24 Hours (Table) 04/06/18 02:20 Blood Culture - Preliminary Blood No Growth after 48 hours 04/06/18 05:05 Urine Culture - Final Urine,Voided Assessment and Plan Assessment: Impression: #1 Profound weakness with fall of unclear etiology suspect secondary to sepsis secondary to lower extremity cellulitis right greater than left. Venous Doppler negative for DVT. #2 Sepsis with lactic acidosis secondary to lower extremity cellulitis. Currently on vancomycin and Zosyn. #3 Acute on chronic renal failure and history of stage III chronic kidney disease. #4 Lactic acidosis secondary to above. #5 Rhabdomyolysis after prolonged downtime found on floor. #6 Profound weakness secondary to above. #7 Hyperglycemia in a patient with a known history of diabetes mellitus, type II. #8 History of CVA 2 with residual left-sided weakness. #9 Morbid obesity. #10 Obstructive sleep apnea AHI of 16, not on CPAP in the outpatient setting. #11 Rheumatoid arthritis. #12 Hypertension. #13 Wound of the right great toe, suspect dry gangrene. #14 History of gastric sleeve in October 2014. Plan: The patient was seen and evaluated by Dr. Ragland. She is currently stable from the pulmonary and critical care standpoint and could be transferred out of the intensive care unit today. Cultures revealed no growth thus far. She is maintained on vancomycin and Zosyn. We will increase her activity as tolerated. We'll continue to follow and make further recommendations based on her clinical status. I, the cosigning physician, performed a history & physical examination of the patient. Lungs sounds faint crackles in the posterior bases. Maintaining good O2 saturations in the 90s on room air. I discussed the assessment and plan of care with my nurse practitioner, Lilian Marmolejo. I attest to the above note as dictated by her.
[2018-04-08 20:53] LABS: Glucose,Whole Blood 116 mg/dL (75-99)
[2018-04-08] MEDS ORDERED: INSULIN DETEMIR (LEVEMIR) 100 UNIT/ML SYR SQ SCH (22:30)
[2018-04-08 23:06] LABS: Glucose,Whole Blood 109 mg/dL (75-99)
[2018-04-09] MEDS: HEPARIN SODIUM,PORCINE 5,000 UNIT/ML 1 ML VIAL SQ SCH ×4 (00:40→23:38)
[2018-04-09] MEDS: PIPERACILLIN-TAZOBACTAM 3.375 GM in SODIUM CHLORIDE 0.9% 100 ML IVPB SCH ×4 (00:40→23:37)
[2018-04-09] MEDS: oxyCODONE-APAP 10-325MG 1 EACH TAB PO PRN ×4 (02:54→22:14)
[2018-04-09] MEDS: SODIUM CHLORIDE 0.9% 1,000 ML IV SCH ×4 (02:54→23:42)
[2018-04-09 06:03] LABS: Basophils % (A) 0 %; Eosinophils # (A) 0.2 k/uL (0-0.7); Eosinophils % (A) 1 %; HCT 29.9 % (34.0-46.0); HGB 9.2 gm/dL (11.4-16.0); Hypochromasia Marked; Lymphocytes # (A) 1.1 k/uL (1.0-4.8); Lymphocytes % (A) 10 %; MCH 30.2 pg (25.0-35.0); MCHC 30.8 g/dL (31.0-37.0); MCV 98.2 fL (80.0-100.0); Mean Platelet Volume 6.9; Monocytes # (A) 0.4 k/uL (0-1.0); Monocytes % (A) 3 %; Neutrophils # (A) 9.8 k/uL (1.3-7.7); Neutrophils % (A) 84 %; Platelet Count 169 k/uL (150-450); RBC 3.04 m/uL (3.80-5.40); RDW 14.3 % (11.5-15.5); WBC 11.7 k/uL (3.8-10.6)
[2018-04-09 06:07] LABS: Calcium 7.3 mg/dL (8.4-10.2); Potassium 3.9 mmol/L (3.5-5.1)
[2018-04-09] MEDS: VANCOMYCIN 2,000 MG in SODIUM CHLORIDE 0.9% 500 ML 500 ML IVPB SCH (06:56)
[2018-04-09 07:05] LABS: Glucose,Whole Blood 63 mg/dL (75-99)
[2018-04-09 07:23] LABS: Glucose,Whole Blood 72 mg/dL (75-99)
[2018-04-09] MEDS: INSULIN ASPART (NovoLOG) 100 UNIT/ML VIAL SQ SCH ×5 (07:42→22:35)
[2018-04-09] MEDS: CARVEDILOL 12.5 MG TAB PO SCH ×2 (08:30→17:48)
[2018-04-09] MEDS: PREGABALIN 75 MG CAP PO SCH ×3 (08:30→22:13)
[2018-04-09] MEDS: ASPIRIN 81 MG PO SCH (08:30)
[2018-04-09] MEDS: DULoxetine HCL 60 MG CAPSULE.DR PO SCH ×2 (08:30→22:14)
[2018-04-09] MEDS: SILVER sulfADIAZINE Cream 400 GM 1 APPLIC APPLIC TOPICAL SCH (08:31)
[2018-04-09] MEDS: TOPIRAMATE 25 MG TAB PO SCH ×2 (08:31→22:14)
[2018-04-09] MEDS: NYSTATIN 100,000 UNIT/GM POWD 15 GM TOPICAL SCH ×2 (08:31→22:18)
[2018-04-09 12:45] LABS: Glucose,Whole Blood 71 mg/dL (75-99)
--- NOTE | 2018-04-09 14:10 | P.PN ---
Subjective Progress Note Date: 04/09/18 This is a pleasant 62-year-old female patient who follows with Dr. Moreno as her primary care physician. 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 Lifelong nonsmoker. The patient's had been out of town however her daughter was checking in on her daily by phone. The got home around 11:30 PM last night all the lights were off the patient was found lying on the floor next to her bed. EMS was called and he was found to be febrile, tachycardic and hyperglycemic she was transferred here for the same. CT brain revealed no acute intracranial abnormality. Chest x-ray reveals interstitial he and hazy opacities throughout the lungs with possible pulmonary vascular congestion and pulmonary edema. White count 16.5. Hemoglobin 11.0. Creatinine 0.67. Glucose 300, lactic acid 4.7. She is seen today in consultation in the emergency room. She is awake and alert in no acute distress. She is quite dry and a weak voice. Most recent lactic acid 3.1. He has received vancomycin and cefepime. She has received 2 L of IV fluid resuscitation. 9 normal saline at 150 ML's per hour. Patient does have a drinking green area of her right great toe. There is also significant cellulitis and edema of the lower extremities right greater than left. She did present with a T-max of 103. Currently 98.9. Hemodynamically stable. Not requiring any pressors. O2 saturations in the high 90s on room air. The patient is seen again today 04/07/2018 in follow-up on the intensive care unit. She is currently awake and alert in no acute distress. She is maintaining good O2 saturations in the 90s on room air. She is sitting up in a chair at the bedside. She is stronger today. Her voice is stronger as well. Blood and urine cultures are pending. White count 14.3. Hemoglobin 10.0. Creatinine 1.82. Bicarb 20. C. difficile screen negative. Doppler of the lower extremities were negative for DVT. Extremities elevated. Sina wraps on. She remains on Zosyn and vancomycin. The patient is seen again today 04/08/2018 in follow-up in the intensive care unit. She is more awake and alert today as compared to yesterday. Her voice is stronger today as well. She is tolerating some liquid diet. He denies any worsening shortness of breath, cough or congestion. She is maintaining good O2 saturations in the upper 90s on room air. She's been afebrile. Hemodynamically stable. Blood and urine culture reveals no growth. She remains on vancomycin and Zosyn. Silvadene cream to the lower extremities. Heparin for DVT prophylaxis. On 04/09/2018, I'm seeing this patient for a follow-up. The patient is doing well. The patient has no specific complaints pH she remains on a combination of Zosyn and vancomycin. Blood cultures been negative. Lower extremity cellulitis also improving. The patient has less swelling in her right face and the pain is completely subsided. No nausea. No vomiting. No abdominal pain. She is following commands and answering questions appropriately. She is afebrile. W sounds at 11.7. Creatinine is at 1.5 Objective - Vital Signs Vital signs: Vital Signs Temp 97.5 F L 04/09/18 12:07 Pulse 68 04/09/18 12:07 Resp 16 04/09/18 12:07 BP 100/64 04/09/18 12:07 Pulse Ox 95 04/09/18 12:07 Intake & Output 04/08/18 04/09/18 04/09/18 18:59 06:59 18:59 Intake Total 2900 1900 700 Output Total 200 Balance 2700 1900 700 Weight 147.6 kg 147.6 kg Intake: IV 2400 1900 700 .9 150 1800 1800 100 Piperacillin-Tazobactam 3 100 100 100 .375 gm In Sodium Chloride 0.9% 100 ml @ 25 mls/hr IVPB Q8HR [facility] Rx# :[id number] Vancomycin 2,000 mg In 500 500 Sodium Chloride 0.9% 500 ml 500 ml @ 167 mls/hr IVPB Q24H [facility] Rx#: [id number] Oral 500 Output: Urine 200 Other: Voiding Method Bedside Commode Bedside Commode Bedside Commode # Voids 1 1 - Exam GENERAL EXAM: Morbidly obese. Alert, oriented, comfortable in no apparent distress. On room air. HEAD: Normocephalic. EYES: Normal reaction of pupils, equal size. NOSE: Clear with pink turbinates. THROAT: No erythema or exudates. NECK: No masses, no JVD. CHEST: No chest wall deformity. LUNGS: Equal air entry with crackles in the posterior bases, diminished. CVS: S1 and S2 normal with no audible murmur, regular rhythm. ABDOMEN: No hepatosplenomegaly, normal bowel sounds, no guarding or rigidity. SPINE: No scoliosis or deformity SKIN: Dry gangrene on the right toe. Cellulitis of the bilateral lower extremities right greater than left. CENTRAL NERVOUS SYSTEM: No focal deficits, tone is normal in all 4 extremities. EXTREMITIES: 2-3+ edema, suspect chronic, cellulitis. Sina wraps to lower extremities. No clubbing, no cyanosis. Peripheral pulses are intact. - Labs CBC & Chem 7: 04/09/18 05:34 04/09/18 05:34 Labs: Abnormal Lab Results - Last 24 Hours (Table) 04/08/18 04/08/18 04/09/18 Range/Units 20:41 22:55 05:34 WBC 11.7 H (3.8-10.6) k/uL RBC 3.04 L (3.80-5.40) m/uL Hgb 9.2 L (11.4-16.0) gm/dL Hct 29.9 L (34.0-46.0) % MCHC 30.8 L (31.0-37.0) g/dL Neutrophils # 9.8 H (1.3-7.7) k/uL Chloride (98-107) mmol/L Carbon Dioxide (22-30) mmol/L BUN (7-17) mg/dL Creatinine (0.52-1.04) mg/dL POC Glucose (mg/dL) 116 H 109 H (75-99) mg/dL Calcium (8.4-10.2) mg/dL 04/09/18 04/09/18 04/09/18 Range/Units 05:34 06:52 07:11 WBC (3.8-10.6) k/uL RBC (3.80-5.40) m/uL Hgb (11.4-16.0) gm/dL Hct (34.0-46.0) % MCHC (31.0-37.0) g/dL Neutrophils # (1.3-7.7) k/uL Chloride 113 H (98-107) mmol/L Carbon Dioxide 20 L (22-30) mmol/L BUN 38 H (7-17) mg/dL Creatinine 1.51 H (0.52-1.04) mg/dL POC Glucose (mg/dL) 63 L 72 L (75-99) mg/dL Calcium 7.3 L (8.4-10.2) mg/dL 04/09/18 Range/Units 12:43 WBC (3.8-10.6) k/uL RBC (3.80-5.40) m/uL Hgb (11.4-16.0) gm/dL Hct (34.0-46.0) % MCHC (31.0-37.0) g/dL Neutrophils # (1.3-7.7) k/uL Chloride (98-107) mmol/L Carbon Dioxide (22-30) mmol/L BUN (7-17) mg/dL Creatinine (0.52-1.04) mg/dL POC Glucose (mg/dL) 71 L (75-99) mg/dL Calcium (8.4-10.2) mg/dL Microbiology - Last 24 Hours (Table) 04/06/18 02:20 Blood Culture - Preliminary Blood No Growth after 72 hours Assessment and Plan Plan: #1 sepsis/dehydration secondary to a lower extremity cellulitis right more than left, improving and the patient is was resuscitated IV fluids and the patient's treated with broad-spectrum antibiotics and the patient is hemodynamically stable with improvement of the lower extremities cellulitis with a combination of Zosyn and vancomycin. #2 Sepsis with lactic acidosis secondary to lower extremity cellulitis. Currently on vancomycin and Zosyn. #3 Acute on chronic renal failure and history of stage III chronic kidney disease. Renal function is stable for now with a creatinine of 1.5 #4 Lactic acidosis secondary to above. #5 Rhabdomyolysis after prolonged downtime found on floor. #6 Profound weakness secondary to above. Patient is improved and the patient can be transferred to a medical floor #7 Hyperglycemia in a patient with a known history of diabetes mellitus, type II. #8 History of CVA 2 with residual left-sided weakness. #9 Morbid obesity. #10 Obstructive sleep apnea AHI of 16, not on CPAP in the outpatient setting. #11 Rheumatoid arthritis. #12 Hypertension. #13 Wound of the right great toe, suspect dry gangrene. #14 History of gastric sleeve in October 2014. Plan Continue same antibiotic coverage. Advanced activity. Advance diet. Transfer this patient to a medical surgical floor with remote telemetry privileges. Wound care to the lower extremities with Silvadene. The legs are already wrapped and IDs on the case. We'll follow.
[2018-04-09 17:53] LABS: Glucose,Whole Blood 90 mg/dL (75-99)
--- NOTE | 2018-04-09 18:08 | P.PN ---
Subjective 62-year-old female was admitted secondary to sepsis from right lower limb cellulitis, diabetic foot ulcers. Patient is presently on Zosyn and vancomycin patient's serum creatinine is bit worse probably from the Lasix she received as today patient is presently on 1 50 mL of normal saline. Doppler of the right lower extremity did not show any DVT. Patient did receive IV Lasix as today because of which her kidney function has worsened a bit. Patient overall appears to have improved more responsive. Patient is complaining of for odynophagia, does appear to have oral thrush Will use nystatin swish and swallow for now and will let infectious disease no about these complaints 04/08/2018 Patient looks much better today in control overnight events still has odynophagia, it to discuss with infectious disease regarding flucanazole speech therapy evaluated the patient. Patient is sitting on the chair 04/09/2018 Patient continued to improve, all the cultures are so far negative neck, possible day of discharge to subacute rehabilitation tomorrow . Odynophagia improved Constitutional: Denied any fatigue denied any fever. Cardio vascular: denied any chest pain, palpitations Gastrointestinal denied any nausea vomiting Pulmonary: Denied any shortness of breath cough Neurologic denied any new focal deficits All inpatient medications were reviewed and appropriate changes in these medications as dictated in the interval history and assessment and plan. Objective - Vital Signs Vital signs: Vital Signs Temp 97.5 F L 04/09/18 12:07 Pulse 68 04/09/18 12:07 Resp 16 04/09/18 12:07 BP 100/64 04/09/18 12:07 Pulse Ox 95 04/09/18 12:07 Intake & Output 04/08/18 04/09/18 04/09/18 18:59 06:59 18:59 Intake Total 2900 1900 700 Output Total 200 Balance 2700 1900 700 Weight 147.6 kg 147.6 kg Intake: IV 2400 1900 700 .9 150 1800 1800 100 Piperacillin-Tazobactam 3 100 100 100 .375 gm In Sodium Chloride 0.9% 100 ml @ 25 mls/hr IVPB Q8HR [facility] Rx# :[id number] Vancomycin 2,000 mg In 500 500 Sodium Chloride 0.9% 500 ml 500 ml @ 167 mls/hr IVPB Q24H [facility] Rx#: [id number] Oral 500 Output: Urine 200 Other: Voiding Method Bedside Commode Bedside Commode Bedside Commode # Voids 1 1 1 - Exam PHYSICAL EXAMINATION: GENERAL: The patient is alert and oriented x3, not in any acute distress. Obese HEENT: Pupils are round and equally reacting to light. EOMI. No scleral icterus. No conjunctival pallor. Normocephalic, atraumatic. No pharyngeal erythema. No thyromegaly. CARDIOVASCULAR: S1 and S2 present. No murmurs, rubs, or gallops. PULMONARY: Chest is clear to auscultation, no wheezing or crackles. ABDOMEN: Soft, nontender, nondistended, normoactive bowel sounds. No palpable organomegaly. MUSCULOSKELETAL: No joint swelling or deformity. EXTREMITIES: No cyanosis, clubbing, patient has bilateral pedal edema with redness significant in the right lower extremity with local is of temperature patient has multiple ulcerations in both legs significant one in the right lower extremity which is stage III to for ulceration patient's right leg is wrapped NEUROLOGICAL: Gross neurological examination did not reveal any focal deficits. SKIN: As mentioned above - Labs CBC & Chem 7: 04/09/18 05:34 04/09/18 05:34 Labs: Abnormal Lab Results - Last 24 Hours (Table) 04/08/18 04/08/18 04/09/18 Range/Units 20:41 22:55 05:34 WBC 11.7 H (3.8-10.6) k/uL RBC 3.04 L (3.80-5.40) m/uL Hgb 9.2 L (11.4-16.0) gm/dL Hct 29.9 L (34.0-46.0) % MCHC 30.8 L (31.0-37.0) g/dL Neutrophils # 9.8 H (1.3-7.7) k/uL Chloride (98-107) mmol/L Carbon Dioxide (22-30) mmol/L BUN (7-17) mg/dL Creatinine (0.52-1.04) mg/dL POC Glucose (mg/dL) 116 H 109 H (75-99) mg/dL Calcium (8.4-10.2) mg/dL 04/09/18 04/09/18 04/09/18 Range/Units 05:34 06:52 07:11 WBC (3.8-10.6) k/uL RBC (3.80-5.40) m/uL Hgb (11.4-16.0) gm/dL Hct (34.0-46.0) % MCHC (31.0-37.0) g/dL Neutrophils # (1.3-7.7) k/uL Chloride 113 H (98-107) mmol/L Carbon Dioxide 20 L (22-30) mmol/L BUN 38 H (7-17) mg/dL Creatinine 1.51 H (0.52-1.04) mg/dL POC Glucose (mg/dL) 63 L 72 L (75-99) mg/dL Calcium 7.3 L (8.4-10.2) mg/dL 04/09/18 Range/Units 12:43 WBC (3.8-10.6) k/uL RBC (3.80-5.40) m/uL Hgb (11.4-16.0) gm/dL Hct (34.0-46.0) % MCHC (31.0-37.0) g/dL Neutrophils # (1.3-7.7) k/uL Chloride (98-107) mmol/L Carbon Dioxide (22-30) mmol/L BUN (7-17) mg/dL Creatinine (0.52-1.04) mg/dL POC Glucose (mg/dL) 71 L (75-99) mg/dL Calcium (8.4-10.2) mg/dL Microbiology - Last 24 Hours (Table) 04/06/18 02:20 Blood Culture - Preliminary Blood No Growth after 72 hours Assessment and Plan Plan: -Sepsis secondary to diabetic foot infection diabetic foot ulcer and cellulitis , patient has severe sepsis for which patient is on IV fluids as mentioned above vancomycin and Zosyn and wound cultures are pending patient probably can be transferred out of ICU. Infectious disease evaluated the patient -Type 2 diabetes mellitus with fairly well-controlled blood sugars patient will be resumed on her home regimen along with sliding scale insulin -Acute renal failure on chronic kidney disease stage III chronic kidney disease is secondary to diabetic nephropathy acute renal failure secondary to sepsis at possibly acute tubular necrosis nonoliguric IV fluids will be continued as mentioned above -CVA TIA in the past patient is on both aspirin and Plavix, Aspin will be continued Plavix will be held -Gastroesophageal reflux disease -Sleep apnea and doesn't use CPAP machine at home -Depression for above-mentioned chronic medical problems patient will be resumed and continued on appropriate home medications -Odynophagia: Probably secondary to fungal esophagitis
[2018-04-09] MEDS: MAG HYDROX/AL HYDROX/SIMETH 30 ML, LIDOCAINE VISCOUS 30 ML, NYSTATIN 100,000 UNIT/ML SU... PO SCH ×6 (19:19→22:16)
[2018-04-09 20:12] LABS: Glucose,Whole Blood 129 mg/dL (75-99)
--- NOTE | 2018-04-09 20:51 | P.PN ---
Subjective Progress Note Date: 04/09/18 This is a 62-year-old female last seen in January 2016 for cellulitis of the left leg with a long-standing history of obesity as well as rheumatoid arthritis, uncontrolled diabetes mellitus. Patient states that she has had fever, chills, swelling on her right side of her face along with her right ear and a sore throat for about one week. Her went to the [facility] and was gone for 4 days. He came home yesterday evening around 11:30 and found her on the floor next to the bed and appeared that she had fallen. He calculated that she must have been on the floor for about 5 hours. Initially, she was barely able to talk and there was some mental status changes. She had extreme weakness, injured the left toes but no other injury was noted. Patient did have a life alert on but apparently did not use it. He checked her blood sugar was 326. He also gives history that the patient has a chronic diabetic ulcer to the right great toe that has been under the care of Dr. Chiu and Shane for the past 6 months with no improvement. Patient apply some type of ointment daily and wraps it. Dr. Chiu does debridements. Patient also has wounds to the left lower leg from scratching. She has chronic lymphedema but the right leg is brighter red now than normal. Patient thinks her last hemoglobin A1c was in the eights down from 9+. Patient follows with Dr. Selwyn crowley for her diabetes. Patient also follows with Dr. Rocha for previous stroke with no residuals. Her contacted EMS and patient was brought in to [facility] emergency center. Temperature 103, heart rate 107, blood pressure 185/84 and pulse ox 96%. White count is 16.5, creatinine 1.67, blood sugars running in the 300s and 400s, initial lactic acid 3.4 with repeat of 4.7, CK 1265. Troponin was normal. Albumin 2.8. Urinalysis was cloudy, blood moderate, ketones trace. Influenza testing negative. Acetone negative. CAT scan of the brain showed no acute intracranial abnormality with stable chronic small vessel ischemic change. Chest x-ray showed pulmonary vascular congestion, infectious or inflammatory process not excluded. Patient was provided 2 L of IV fluid, ceftriaxone, cefepime, vancomycin, Tylenol and insulin and admitted to the cardiac stepdown unit. Patient is currently waiting in the ER for a bed on the unit. 04/07/2018 reveals the patient to be feeling slightly better today. Her level of confusion is improved. She is definitely able to converse much more readily. She still has some discomforts especially to her legs which are chronically bother her in a source of chronic pain for which she takes Percocet at home. Also has complaints of some right ear pain and some discomfort to the right side of her face that's actually improving since yesterday. She is unaware of any fevers or chills. No rigors. Mouth is dry but she's been able to eat between 50 and 75% of her tray. 04/09/2018 patient is feeling somewhat better today. Swelling to the right side of her face and right pinna are feeling better. Breathing is feeling better. No pain in her chest. Remains with profound generalized weakness. Legs are feeling slightly better and that they have less discomfort remains swollen and uncomfortable. Objective - Vital Signs Vital signs: Vital Signs Temp 97.5 F L 04/09/18 12:07 Pulse 68 04/09/18 12:07 Resp 16 04/09/18 12:07 BP 100/64 04/09/18 12:07 Pulse Ox 95 04/09/18 12:07 Intake & Output 04/09/18 04/09/18 04/10/18 06:59 18:59 06:59 Intake Total 1900 700 Balance 1900 700 Weight 147.6 kg 147.6 kg Intake: IV 1900 700 .9 150 1800 100 Piperacillin-Tazobactam 3 100 100 .375 gm In Sodium Chloride 0.9% 100 ml @ 25 mls/hr IVPB Q8HR [facility] Rx# :[id number] Vancomycin 2,000 mg In 500 Sodium Chloride 0.9% 500 ml 500 ml @ 167 mls/hr IVPB Q24H [facility] Rx#: [id number] Other: Voiding Method Bedside Commode Bedside Commode # Voids 1 1 - Exam GEN: Morbidly obese 62-year-old woman fabian comfortably in bed She is currently afebrile HEENT: Anicteric conjunctiva are pink and moist nasal mucosa grossly intact without significant lesions, there is no thrush. Full denture. There is improvement of the erythema and edema to the right side of her face and of right ear. Auditory canal seems to be without internal edema or erythema. No lesion noted Neck: The neck is supple without significant lymphadenopathy or thyromegaly. Lungs: Good bilateral air entry without significant crackles or wheezing. There is no significant bronchial sounds. Heart: Regular rate and rhythm with an audible S1-S2, no S3 no S4. There is no significant murmur. Abdomen: Obese, Positive bowel sounds soft and nontender without palpable masses or organomegaly. There was no guarding or rebound. Erythema under her abdominal fold. Extremities: The upper extremities have excellent pulses they are symmetric, no significant petechiae or telangiectasia. No splinter hemorrhages were noted. The bilateral extremities show evidence of the chronic lower extremity edema and lymphedema. To the right great toe plantar there is a chronic diabetic ulcer with scant amount of drainage. On the right lower extremity there is significant edema and erythema with warmth. Left lower extremity has linear- type lesions to the lower pretibial area. Abrasions to the toes on the left foot. Neuro: Awake alert oriented to person place and time. improved further over the last day - Labs CBC & Chem 7: 04/09/18 05:34 04/09/18 05:34 Labs: Abnormal Lab Results - Last 24 Hours (Table) 04/08/18 04/08/18 04/09/18 Range/Units 20:41 22:55 05:34 WBC 11.7 H (3.8-10.6) k/uL RBC 3.04 L (3.80-5.40) m/uL Hgb 9.2 L (11.4-16.0) gm/dL Hct 29.9 L (34.0-46.0) % MCHC 30.8 L (31.0-37.0) g/dL Neutrophils # 9.8 H (1.3-7.7) k/uL Chloride (98-107) mmol/L Carbon Dioxide (22-30) mmol/L BUN (7-17) mg/dL Creatinine (0.52-1.04) mg/dL POC Glucose (mg/dL) 116 H 109 H (75-99) mg/dL Calcium (8.4-10.2) mg/dL 04/09/18 04/09/18 04/09/18 Range/Units 05:34 06:52 07:11 WBC (3.8-10.6) k/uL RBC (3.80-5.40) m/uL Hgb (11.4-16.0) gm/dL Hct (34.0-46.0) % MCHC (31.0-37.0) g/dL Neutrophils # (1.3-7.7) k/uL Chloride 113 H (98-107) mmol/L Carbon Dioxide 20 L (22-30) mmol/L BUN 38 H (7-17) mg/dL Creatinine 1.51 H (0.52-1.04) mg/dL POC Glucose (mg/dL) 63 L 72 L (75-99) mg/dL Calcium 7.3 L (8.4-10.2) mg/dL 04/09/18 04/09/18 Range/Units 12:43 20:10 WBC (3.8-10.6) k/uL RBC (3.80-5.40) m/uL Hgb (11.4-16.0) gm/dL Hct (34.0-46.0) % MCHC (31.0-37.0) g/dL Neutrophils # (1.3-7.7) k/uL Chloride (98-107) mmol/L Carbon Dioxide (22-30) mmol/L BUN (7-17) mg/dL Creatinine (0.52-1.04) mg/dL POC Glucose (mg/dL) 71 L 129 H (75-99) mg/dL Calcium (8.4-10.2) mg/dL Microbiology - Last 24 Hours (Table) 04/06/18 02:20 Blood Culture - Preliminary Blood No Growth after 72 hours Laboratory Results WBC 11.7 k/uL (3.8-10.6) H 04/09/18 05:34 RBC 3.04 m/uL (3.80-5.40) L 04/09/18 05:34 Hgb 9.2 gm/dL (11.4-16.0) L 04/09/18 05:34 Hct 29.9 % (34.0-46.0) L 04/09/18 05:34 MCV 98.2 fL (80.0-100.0) 04/09/18 05:34 MCH 30.2 pg (25.0-35.0) 04/09/18 05:34 MCHC 30.8 g/dL (31.0-37.0) L 04/09/18 05:34 RDW 14.3 % (11.5-15.5) 04/09/18 05:34 Plt Count 169 k/uL (150-450) 04/09/18 05:34 Neutrophils % 84 % 04/09/18 05:34 Neutrophils % (Manual) 64 % 04/07/18 05:16 Band Neutrophils % 28 % 04/07/18 05:16 Lymphocytes % 10 % 04/09/18 05:34 Lymphocytes % (Manual) 4 % 04/07/18 05:16 Monocytes % 3 % 04/09/18 05:34 Monocytes % (Manual) 3 % 04/07/18 05:16 Eosinophils % 1 % 04/09/18 05:34 Basophils % 0 % 04/09/18 05:34 Basophils % (Manual) 1 % 04/07/18 05:16 Metamyelocytes % 13 % 04/06/18 07:00 Myelocytes % 3 % 04/06/18 07:00 Neutrophils # 9.8 k/uL (1.3-7.7) H 04/09/18 05:34 Neutrophils # (Manual) 13.10 k/uL (1.3-7.7) H 04/07/18 05:16 Lymphocytes # 1.1 k/uL (1.0-4.8) 04/09/18 05:34 Lymphocytes # (Manual) 0.57 k/uL (1.0-4.8) L 04/07/18 05:16 Monocytes # 0.4 k/uL (0-1.0) 04/09/18 05:34 Monocytes # (Manual) 0.43 k/uL (0-1.0) 04/07/18 05:16 Eosinophils # 0.2 k/uL (0-0.7) 04/09/18 05:34 Basophils # 0.0 k/uL (0-0.2) 04/09/18 05:34 Basophils # (Manual) 0.14 k/uL (0-0.2) 04/07/18 05:16 Metamyelocytes # (Man) 2.15 k/uL (0) H 04/06/18 07:00 Myelocytes # (Manual) 0.50 k/uL (0) H 04/06/18 07:00 Nucleated RBCs 0 /100 WBC (0-0) 04/07/18 05:16 Manual Slide Review Performed 04/07/18 05:16 Toxic Granulation Present 04/06/18 07:00 Hypochromasia Marked 04/09/18 05:34 PT 11.5 sec (9.0-12.0) 04/06/18 02:20 INR 1.1 (<1.2) 04/06/18 02:20 APTT 24.7 sec (22.0-30.0) 04/06/18 02:20 VBG pH 7.25 (7.31-7.41) L 04/06/18 02:20 VBG pCO2 41 mmHg (37-51) 04/06/18 02:20 VBG HCO3 17 mmol/L (24-28) L 04/06/18 02:20 Sodium 139 mmol/L (137-145) 04/09/18 05:34 Potassium 3.9 mmol/L (3.5-5.1) 04/09/18 05:34 Chloride 113 mmol/L (98-107) H 04/09/18 05:34 Carbon Dioxide 20 mmol/L (22-30) L 04/09/18 05:34 Anion Gap 6 mmol/L 04/09/18 05:34 BUN 38 mg/dL (7-17) H 04/09/18 05:34 Creatinine 1.51 mg/dL (0.52-1.04) H 04/09/18 05:34 Est GFR (CKD-EPI)AfAm 42 (>60 ml/min/1.73 sqM) 04/09/18 05:34 Est GFR (CKD-EPI)NonAf 37 (>60 ml/min/1.73 sqM) 04/09/18 05:34 Glucose 82 mg/dL (74-99) 04/09/18 05:34 POC Glucose (mg/dL) 129 mg/dL (75-99) H 04/09/18 20:10 POC Glu [employer] Juanis Angela 04/09/18 20:[address] Glu mg/dL 214 04/06/18 11:03 Hemoglobin A1c 9.1 % (4.0-6.0) H 04/06/18 11:03 Lactic Ac Sepsis Rflx Y 04/06/18 07:25 Plasma Lactic Acid Flex 3.1 mmol/L (0.7-2.0) H* 04/06/18 11:03 Calcium 7.3 mg/dL (8.4-10.2) L 04/09/18 05:34 Magnesium 2.0 mg/dL (1.6-2.3) 04/07/18 05:16 Total Bilirubin 0.6 mg/dL (0.2-1.3) 04/07/18 05:16 AST 76 U/L (14-36) H 04/07/18 05:16 ALT 35 U/L (9-52) 04/07/18 05:16 Alkaline Phosphatase 106 U/L (38-126) 04/07/18 05:16 Creatine Kinase 1265 U/L (30-135) H* 04/06/18 02:20 CK-MB (CK-2) 3.3 ng/mL (0.0-2.4) H 04/06/18 02:20 Troponin I <0.012 ng/mL (0.000-0.034) 04/06/18 02:20 Total Protein 5.3 g/dL (6.3-8.2) L 04/07/18 05:16 Albumin 2.3 g/dL (3.5-5.0) L 04/07/18 05:16 Urine Color Yellow 04/06/18 05:05 Urine Appearance Cloudy (Clear) H 04/06/18 05:05 Urine pH 5.0 (5.0-8.0) 04/06/18 05:05 Ur Specific [place] 1.016 (1.001-1.035) 04/06/18 05:05 Urine Protein 2+ (Negative) H 04/06/18 05:05 Urine Glucose (UA) 3+ (Negative) H 04/06/18 05:05 Urine Ketones Trace (Negative) H 04/06/18 05:05 Urine Blood Moderate (Negative) H 04/06/18 05:05 Urine Nitrite Negative (Negative) 04/06/18 05:05 Urine Bilirubin Negative (Negative) 04/06/18 05:05 Urine Urobilinogen <2.0 mg/dL (<2.0) 04/06/18 05:05 Ur Leukocyte Esterase Negative (Negative) 04/06/18 05:05 Urine RBC 4 /hpf (0-5) 04/06/18 05:05 Urine WBC 32 /hpf (0-5) H 04/06/18 05:05 Ur Squamous Epith Cells 2 /hpf (0-4) 04/06/18 05:05 Hyaline Casts 12 /lpf (0-2) H 04/06/18 05:05 Urine Mucus Rare /hpf (None) H 04/06/18 05:05 Acetone, Qual Negative (Negative) 04/06/18 02:20 C. difficile (EIA) Intrp Negative (Negative) 04/06/18 14:50 Influenza Type A RNA Not Detected (Not Detectd) 04/06/18 03:20 Influenza Type B (PCR) Not Detected (Not Detectd) 04/06/18 03:20 Microbiology 04/06/18 02:20 Blood Blood Culture - Preliminary No Growth after 72 hours 04/06/18 05:05 Urine,Voided Urine Culture - Final Assessment and Plan (1) Cellulitis Narrative/Plan: As has noted this obese woman was found by her on the floor after return from his trip up [place]. She was weak and dehydrated and unable to speak very well. She has had hydration with some improvement of her status. She still weak, her mouth is dry and does not feel well. As noted she has evidence of the extensive ulceration of the right foot plantar an injury to the left foot which is somewhat new as per the . Local wound care will be utilized the great toe with the medical honey and wrap in place. Request venous Doppler studies sure there is no clots. If there is no deep venous thrombosis week and then utilizes Silvadene wrap with compression to the bilateral lower extremities to help. The patient's relates that there are compression pumps in the home for her chronic edema that she simply doesn't use. Hopefully we'll be able to work with the discharge team to have evaluation the home potentially have new sequential sleeves that she can wear and help with her lower extremity edema. If she is not vascular surgery consultation this can be considered once her ulcerations improved which we will follow with the wound center after discharge. Antimicrobial therapy this was Zosyn and vancomycin for now until we have further data. There is a swelling to the right ear which the patient believes may be related to her inability to move and laying on it while she was on the floor. Otitis external often has Pseudomonas and constantly the Zosyn is appropriate at this time. 04/07/2018 finds the patient to be more awake alert and interactive. Has complaints of her chronic pain seems to be comfortable at the moment. Duplex scan since come back negative for deep venous thrombosis and consequently Silvadene the multilayer wraps and then applied to the bilateral lower extremities to help with her chronic edema. The wound care has been applied to the chronic ulceration to the right great toe with the silver alginate. Antibiotic therapy continues with Zosyn and vancomycin pending further culture data. Fortunately the significant swelling to the right ear and right face seems to have improved with current therapy. It is likely that she did suffer some difficulty with some pressure to the right side of face and the ear in the time that she was laying on the floor before she was brought to hospital. 04/09/2018 patient is virtually having further improvement. The pain and swelling to the right side of her face and right pinna hip improved. Mentation is improving. The lower extremities with current therapy are also improving but certainly not resolved. It appears she was going to rehab after her hospital stay to receive ongoing care. This will also include a course of intravenous antibiotic therapy. Vancomycin is discontinued. No MRSA is isolated. Zosyn continues for now. We' ll likely be utilized for 10-14 days at the [facility] care facility to complete her course of therapy. Current Visit: Yes Status: Acute Code(s): L03.90 - CELLULITIS, UNSPECIFIED SNOMED Code(s): 411897209 (2) Sepsis Current Visit: Yes Status: Acute Code(s): A41.9 - SEPSIS, UNSPECIFIED ORGANISM SNOMED Code(s): 49164665
[2018-04-10] MEDS ORDERED: VANCOMYCIN TROUGH DUE 1 EACH MISC MISCELLANE ONE (05:00)
[2018-04-10] MEDS: oxyCODONE-APAP 10-325MG 1 EACH TAB PO PRN ×4 (05:19→22:58)
[2018-04-10 07:06] LABS: Glucose,Whole Blood 88 mg/dL (75-99)
[2018-04-10 07:55] LABS: INR 0.9 (<1.2); Partial Thromboplastin Time 34.1 sec (22.0-30.0); Prothrombin Time 9.9 sec (9.0-12.0)
[2018-04-10 08:11] LABS: Calcium 7.8 mg/dL (8.4-10.2); Potassium 4.2 mmol/L (3.5-5.1)
[2018-04-10 08:18] LABS: HCT 28.8 % (34.0-46.0); Hypochromasia Marked; MCH 30.9 pg (25.0-35.0); MCHC 31.4 g/dL (31.0-37.0); MCV 98.3 fL (80.0-100.0); Mean Platelet Volume 7.6; Platelet Count 189 k/uL (150-450); RBC 2.93 m/uL (3.80-5.40); RDW 14.5 % (11.5-15.5); WBC 9.7 k/uL (3.8-10.6)
[2018-04-10] MEDS: SODIUM CHLORIDE 0.9% 1,000 ML IV SCH ×3 (08:41→17:21)
[2018-04-10] MEDS: INSULIN ASPART (NovoLOG) 100 UNIT/ML VIAL SQ SCH ×4 (08:47→22:05)
[2018-04-10] MEDS: CARVEDILOL 12.5 MG TAB PO SCH ×2 (08:50→17:16)
[2018-04-10] MEDS: PREGABALIN 75 MG CAP PO SCH ×3 (08:50→22:04)
[2018-04-10] MEDS: HEPARIN SODIUM,PORCINE 5,000 UNIT/ML 1 ML VIAL SQ SCH ×3 (08:50→23:00)
[2018-04-10] MEDS: ASPIRIN 81 MG PO SCH (08:50)
[2018-04-10] MEDS: PIPERACILLIN-TAZOBACTAM 3.375 GM in SODIUM CHLORIDE 0.9% 100 ML IVPB SCH ×3 (08:51→23:00)
[2018-04-10] MEDS: TOPIRAMATE 25 MG TAB PO SCH ×2 (08:51→22:05)
[2018-04-10] MEDS: DULoxetine HCL 60 MG CAPSULE.DR PO SCH ×2 (08:51→22:04)
[2018-04-10] MEDS: SILVER sulfADIAZINE Cream 400 GM 1 APPLIC APPLIC TOPICAL SCH (08:53)
[2018-04-10] MEDS: NYSTATIN 100,000 UNIT/GM POWD 15 GM TOPICAL SCH ×2 (08:53→22:06)
[2018-04-10] MEDS: MAG HYDROX/AL HYDROX/SIMETH 30 ML, LIDOCAINE VISCOUS 30 ML, NYSTATIN 100,000 UNIT/ML SU... PO SCH ×9 (08:59→22:06)
[2018-04-10 11:31] LABS: Glucose,Whole Blood 131 mg/dL (75-99)
--- NOTE | 2018-04-10 14:15 | P.PN ---
Subjective Progress Note Date: 04/10/18 This is a pleasant 62-year-old female patient who follows with Dr. Moreno as her primary care physician. 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 Lifelong nonsmoker. The patient's had been out of town however her daughter was checking in on her daily by phone. The got home around 11:30 PM last night all the lights were off the patient was found lying on the floor next to her bed. EMS was called and he was found to be febrile, tachycardic and hyperglycemic she was transferred here for the same. CT brain revealed no acute intracranial abnormality. Chest x-ray reveals interstitial he and hazy opacities throughout the lungs with possible pulmonary vascular congestion and pulmonary edema. White count 16.5. Hemoglobin 11.0. Creatinine 0.67. Glucose 300, lactic acid 4.7. She is seen today in consultation in the emergency room. She is awake and alert in no acute distress. She is quite dry and a weak voice. Most recent lactic acid 3.1. He has received vancomycin and cefepime. She has received 2 L of IV fluid resuscitation. 9 normal saline at 150 ML's per hour. Patient does have a drinking green area of her right great toe. There is also significant cellulitis and edema of the lower extremities right greater than left. She did present with a T-max of 103. Currently 98.9. Hemodynamically stable. Not requiring any pressors. O2 saturations in the high 90s on room air. The patient is seen again today 04/07/2018 in follow-up on the intensive care unit. She is currently awake and alert in no acute distress. She is maintaining good O2 saturations in the 90s on room air. She is sitting up in a chair at the bedside. She is stronger today. Her voice is stronger as well. Blood and urine cultures are pending. White count 14.3. Hemoglobin 10.0. Creatinine 1.82. Bicarb 20. C. difficile screen negative. Doppler of the lower extremities were negative for DVT. Extremities elevated. Sina wraps on. She remains on Zosyn and vancomycin. The patient is seen again today 04/08/2018 in follow-up in the intensive care unit. She is more awake and alert today as compared to yesterday. Her voice is stronger today as well. She is tolerating some liquid diet. He denies any worsening shortness of breath, cough or congestion. She is maintaining good O2 saturations in the upper 90s on room air. She's been afebrile. Hemodynamically stable. Blood and urine culture reveals no growth. She remains on vancomycin and Zosyn. Silvadene cream to the lower extremities. Heparin for DVT prophylaxis. On 04/09/2018, I'm seeing this patient for a follow-up. The patient is doing well. The patient has no specific complaints pH she remains on a combination of Zosyn and vancomycin. Blood cultures been negative. Lower extremity cellulitis also improving. The patient has less swelling in her right face and the pain is completely subsided. No nausea. No vomiting. No abdominal pain. She is following commands and answering questions appropriately. She is afebrile. W sounds at 11.7. Creatinine is at 1.5 On 04/10/2018 the patient has been discharged from the intensive care unit pH is on a medical floor. Doing well. Cellulitis is being treated with combination antibiotics using Zosyn and vancomycin,. No new complaints. Creatinine is down to 1.4. Hemodynamic is stable. Awake and alert. Tolerating her diet. No other significant events overnight. Objective - Vital Signs Vital signs: Vital Signs Temp 98.7 F 04/10/18 11:53 Pulse 68 04/10/18 11:53 Resp 17 04/10/18 11:53 BP 121/65 04/10/18 11:53 Pulse Ox 96 04/10/18 11:53 Intake & Output 04/09/18 04/10/18 04/10/18 18:59 06:59 18:59 Intake Total 700 Balance 700 Weight 147.6 kg 147.8 kg Intake: IV 700 .9 150 100 Piperacillin-Tazobactam 3 100 .375 gm In Sodium Chloride 0.9% 100 ml @ 25 mls/hr IVPB Q8HR EMIL[facility] Rx# :[id number] Vancomycin 2,000 mg In 500 Sodium Chloride 0.9% 500 ml 500 ml @ 167 mls/hr IVPB Q24H [facility]IL[facility]O Rx#: [id number] Other: Voiding Method Bedside Commode Diaper Diaper # Voids 1 2 - Exam GENERAL EXAM: Morbidly obese. Alert, oriented, comfortable in no apparent distress. On room air. HEAD: Normocephalic. EYES: Normal reaction of pupils, equal size. NOSE: Clear with pink turbinates. THROAT: No erythema or exudates. NECK: No masses, no JVD. CHEST: No chest wall deformity. LUNGS: Equal air entry with crackles in the posterior bases, diminished. CVS: S1 and S2 normal with no audible murmur, regular rhythm. ABDOMEN: No hepatosplenomegaly, normal bowel sounds, no guarding or rigidity. SPINE: No scoliosis or deformity SKIN: Dry gangrene on the right toe. Cellulitis of the bilateral lower extremities right greater than left. CENTRAL NERVOUS SYSTEM: No focal deficits, tone is normal in all 4 extremities. EXTREMITIES: 2-3+ edema, suspect chronic, cellulitis. Sina wraps to lower extremities. No clubbing, no cyanosis. Peripheral pulses are intact. - Labs CBC & Chem 7: 04/10/18 06:53 04/10/18 06:53 Labs: Abnormal Lab Results - Last 24 Hours (Table) 04/09/18 04/10/18 04/10/18 Range/Units 20:10 06:53 06:53 RBC 2.93 L (3.80-5.40) m/uL Hgb 9.0 L (11.4-16.0) gm/dL Hct 28.8 L (34.0-46.0) % APTT (22.0-30.0) sec Chloride 113 H (98-107) mmol/L Carbon Dioxide 20 L (22-30) mmol/L BUN 31 H (7-17) mg/dL Creatinine 1.42 H (0.52-1.04) mg/dL POC Glucose (mg/dL) 129 H (75-99) mg/dL Calcium 7.8 L (8.4-10.2) mg/dL 04/10/18 04/10/18 Range/Units 06:53 11:30 RBC (3.80-5.40) m/uL Hgb (11.4-16.0) gm/dL Hct (34.0-46.0) % APTT 34.1 H (22.0-30.0) sec Chloride (98-107) mmol/L Carbon Dioxide (22-30) mmol/L BUN (7-17) mg/dL Creatinine (0.52-1.04) mg/dL POC Glucose (mg/dL) 131 H (75-99) mg/dL Calcium (8.4-10.2) mg/dL Microbiology - Last 24 Hours (Table) 04/06/18 02:20 Blood Culture - Preliminary Blood No Growth after 96 hours Assessment and Plan Plan: #1 sepsis/dehydration secondary to a lower extremity cellulitis right more than left, improving and the patient is was resuscitated IV fluids and the patient's treated with broad-spectrum antibiotics and the patient is hemodynamically stable with improvement of the lower extremities cellulitis with a combination of Zosyn and vancomycin. #2 Sepsis with lactic acidosis secondary to lower extremity cellulitis. Currently on vancomycin and Zosyn. #3 Acute on chronic renal failure and history of stage III chronic kidney disease. Renal function is stable for now with a creatinine of 1.4 #4 Lactic acidosis secondary to above. #5 Rhabdomyolysis after prolonged downtime found on floor. #6 Profound weakness secondary to above. Patient is improved and the patient can be transferred to a medical floor #7 Hyperglycemia in a patient with a known history of diabetes mellitus, type II. #8 History of CVA 2 with residual left-sided weakness. #9 Morbid obesity. #10 Obstructive sleep apnea AHI of 16, not on CPAP in the outpatient setting. #11 Rheumatoid arthritis. #12 Hypertension. #13 Wound of the right great toe, suspect dry gangrene. #14 History of gastric sleeve in October 2014. Plan Continue same antibiotic coverage. Pulmonary critical care will sign off. Patient is on room air for now. No respiratory distress. No signs of any septicemia.
--- NOTE | 2018-04-10 15:37 | P.PN ---
Subjective 62-year-old female was admitted secondary to sepsis from right lower limb cellulitis, diabetic foot ulcers. Patient is presently on Zosyn and vancomycin patient's serum creatinine is bit worse probably from the Lasix she received as today patient is presently on 1 50 mL of normal saline. Doppler of the right lower extremity did not show any DVT. Patient did receive IV Lasix as today because of which her kidney function has worsened a bit. Patient overall appears to have improved more responsive. Patient is complaining of for odynophagia, does appear to have oral thrush Will use nystatin swish and swallow for now and will let infectious disease no about these complaints 04/08/2018 Patient looks much better today in control overnight events still has odynophagia, it to discuss with infectious disease regarding flucanazole speech therapy evaluated the patient. Patient is sitting on the chair 04/09/2018 Patient continued to improve, all the cultures are so far negative neck, possible day of discharge to subacute rehabilitation tomorrow . Odynophagia improved 04/10/2018 Patient is clinically doing well will be discharged to subacute rehabilitation on Thursday Constitutional: Denied any fatigue denied any fever. Cardio vascular: denied any chest pain, palpitations Gastrointestinal denied any nausea vomiting Pulmonary: Denied any shortness of breath cough Neurologic denied any new focal deficits All inpatient medications were reviewed and appropriate changes in these medications as dictated in the interval history and assessment and plan. Objective - Vital Signs Vital signs: Vital Signs Temp 98.7 F 04/10/18 11:53 Pulse 68 04/10/18 11:53 Resp 17 04/10/18 11:53 BP 121/65 04/10/18 11:53 Pulse Ox 96 04/10/18 11:53 Intake & Output 04/09/18 04/10/18 04/10/18 18:59 06:59 18:59 Intake Total 700 Balance 700 Weight 147.6 kg 147.8 kg Intake: IV 700 .9 150 100 Piperacillin-Tazobactam 3 100 .375 gm In Sodium Chloride 0.9% 100 ml @ 25 mls/hr IVPB Q8HR EMILIANO Rx# :[id number] Vancomycin 2,000 mg In 500 Sodium Chloride 0.9% 500 ml 500 ml @ 167 mls/hr IVPB Q24H EMILIANO Rx#: [id number] Other: Voiding Method Bedside Commode Diaper Diaper # Voids 1 2 - Exam PHYSICAL EXAMINATION: GENERAL: The patient is alert and oriented x3, not in any acute distress. Obese HEENT: Pupils are round and equally reacting to light. EOMI. No scleral icterus. No conjunctival pallor. Normocephalic, atraumatic. No pharyngeal erythema. No thyromegaly. CARDIOVASCULAR: S1 and S2 present. No murmurs, rubs, or gallops. PULMONARY: Chest is clear to auscultation, no wheezing or crackles. ABDOMEN: Soft, nontender, nondistended, normoactive bowel sounds. No palpable organomegaly. MUSCULOSKELETAL: No joint swelling or deformity. EXTREMITIES: No cyanosis, clubbing, patient has bilateral pedal edema with redness significant in the right lower extremity with local is of temperature patient has multiple ulcerations in both legs significant one in the right lower extremity which is stage III to for ulceration patient's right leg is wrapped NEUROLOGICAL: Gross neurological examination did not reveal any focal deficits. SKIN: As mentioned above - Labs CBC & Chem 7: 04/10/18 06:53 04/10/18 06:53 Labs: Abnormal Lab Results - Last 24 Hours (Table) 04/09/18 04/10/18 04/10/18 Range/Units 20:10 06:53 06:53 RBC 2.93 L (3.80-5.40) m/uL Hgb 9.0 L (11.4-16.0) gm/dL Hct 28.8 L (34.0-46.0) % APTT (22.0-30.0) sec Chloride 113 H (98-107) mmol/L Carbon Dioxide 20 L (22-30) mmol/L BUN 31 H (7-17) mg/dL Creatinine 1.42 H (0.52-1.04) mg/dL POC Glucose (mg/dL) 129 H (75-99) mg/dL Calcium 7.8 L (8.4-10.2) mg/dL 04/10/18 04/10/18 Range/Units 06:53 11:30 RBC (3.80-5.40) m/uL Hgb (11.4-16.0) gm/dL Hct (34.0-46.0) % APTT 34.1 H (22.0-30.0) sec Chloride (98-107) mmol/L Carbon Dioxide (22-30) mmol/L BUN (7-17) mg/dL Creatinine (0.52-1.04) mg/dL POC Glucose (mg/dL) 131 H (75-99) mg/dL Calcium (8.4-10.2) mg/dL Microbiology - Last 24 Hours (Table) 04/06/18 02:20 Blood Culture - Preliminary Blood No Growth after 96 hours Assessment and Plan Plan: -Sepsis secondary to diabetic foot infection diabetic foot ulcer and cellulitis , patient has severe sepsis for which patient is on IV fluids as mentioned above vancomycin and Zosyn and wound cultures are pending patient probably can be transferred out of ICU. Infectious disease evaluated the patient -Type 2 diabetes mellitus with fairly well-controlled blood sugars patient will be resumed on her home regimen along with sliding scale insulin -Acute renal failure on chronic kidney disease stage III chronic kidney disease is secondary to diabetic nephropathy acute renal failure secondary to sepsis at possibly acute tubular necrosis nonoliguric IV fluids will be continued as mentioned above -CVA TIA in the past patient is on both aspirin and Plavix, Aspin will be continued Plavix will be held -Gastroesophageal reflux disease -Sleep apnea and doesn't use CPAP machine at home -Depression for above-mentioned chronic medical problems patient will be resumed and continued on appropriate home medications -Odynophagia: Probably secondary to fungal esophagitis
[2018-04-10 17:09] LABS: Glucose,Whole Blood 171 mg/dL (75-99)
[2018-04-10 21:38] LABS: Glucose,Whole Blood 151 mg/dL (75-99)
[2018-04-11] MEDS: SODIUM CHLORIDE 0.9% 1,000 ML IV SCH ×4 (02:47→23:36)
[2018-04-11 03:15] LABS: Glucose,Whole Blood 142 mg/dL (75-99)
[2018-04-11] MEDS: oxyCODONE-APAP 10-325MG 1 EACH TAB PO PRN ×4 (03:59→23:36)
[2018-04-11 06:59] LABS: Glucose,Whole Blood 166 mg/dL (75-99)
[2018-04-11] MEDS: INSULIN ASPART (NovoLOG) 100 UNIT/ML VIAL SQ SCH ×4 (08:39→21:59)
[2018-04-11] MEDS: CARVEDILOL 12.5 MG TAB PO SCH ×2 (08:40→17:29)
[2018-04-11] MEDS: HEPARIN SODIUM,PORCINE 5,000 UNIT/ML 1 ML VIAL SQ SCH ×3 (08:40→23:36)
[2018-04-11] MEDS: ASPIRIN 81 MG PO SCH (08:40)
[2018-04-11] MEDS: PREGABALIN 75 MG CAP PO SCH ×3 (08:40→22:00)
[2018-04-11] MEDS: PIPERACILLIN-TAZOBACTAM 3.375 GM in SODIUM CHLORIDE 0.9% 100 ML IVPB SCH ×3 (08:40→23:35)
[2018-04-11] MEDS: NYSTATIN 100,000 UNIT/GM POWD 15 GM TOPICAL SCH ×2 (08:41→22:01)
[2018-04-11] MEDS: TOPIRAMATE 25 MG TAB PO SCH ×2 (08:41→22:00)
[2018-04-11] MEDS: SILVER sulfADIAZINE Cream 400 GM 1 APPLIC APPLIC TOPICAL SCH (08:41)
[2018-04-11] MEDS: DULoxetine HCL 60 MG CAPSULE.DR PO SCH ×2 (08:42→22:00)
[2018-04-11] MEDS: MAG HYDROX/AL HYDROX/SIMETH 30 ML, LIDOCAINE VISCOUS 30 ML, NYSTATIN 100,000 UNIT/ML SU... PO SCH ×9 (08:48→22:31)
[2018-04-11 11:45] LABS: Glucose,Whole Blood 157 mg/dL (75-99)
--- NOTE | 2018-04-11 13:27 | P.PN ---
Subjective 62-year-old female was admitted secondary to sepsis from right lower limb cellulitis, diabetic foot ulcers. Patient is presently on Zosyn and vancomycin patient's serum creatinine is bit worse probably from the Lasix she received as today patient is presently on 1 50 mL of normal saline. Doppler of the right lower extremity did not show any DVT. Patient did receive IV Lasix as today because of which her kidney function has worsened a bit. Patient overall appears to have improved more responsive. Patient is complaining of for odynophagia, does appear to have oral thrush Will use nystatin swish and swallow for now and will let infectious disease no about these complaints 04/08/2018 Patient looks much better today in control overnight events still has odynophagia, it to discuss with infectious disease regarding flucanazole speech therapy evaluated the patient. Patient is sitting on the chair 04/09/2018 Patient continued to improve, all the cultures are so far negative neck, possible day of discharge to subacute rehabilitation tomorrow . Odynophagia improved 04/10/2018 Patient is clinically doing well will be discharged to subacute rehabilitation on Thursday04/11/2018 Patient is still complaining of pain in the right leg and swelling in the right leg although fairly controlled pain with present regimen Constitutional: Denied any fatigue denied any fever. Cardio vascular: denied any chest pain, palpitations Gastrointestinal denied any nausea vomiting Pulmonary: Denied any shortness of breath cough Neurologic denied any new focal deficits All inpatient medications were reviewed and appropriate changes in these medications as dictated in the interval history and assessment and plan. Objective - Vital Signs Vital signs: Vital Signs Temp 98.8 F 04/11/18 11:56 Pulse 69 04/11/18 11:56 Resp 17 04/11/18 11:56 BP 141/66 04/11/18 11:56 Pulse Ox 95 04/11/18 11:56 Intake & Output 04/10/18 04/11/18 04/11/18 18:59 06:59 18:59 Output Total 200 Balance -200 Weight 152 kg Output: Urine 200 Other: Voiding Method Diaper Diaper Diaper # Voids 2 - Exam PHYSICAL EXAMINATION: GENERAL: The patient is alert and oriented x3, not in any acute distress. Obese HEENT: Pupils are round and equally reacting to light. EOMI. No scleral icterus. No conjunctival pallor. Normocephalic, atraumatic. No pharyngeal erythema. No thyromegaly. CARDIOVASCULAR: S1 and S2 present. No murmurs, rubs, or gallops. PULMONARY: Chest is clear to auscultation, no wheezing or crackles. ABDOMEN: Soft, nontender, nondistended, normoactive bowel sounds. No palpable organomegaly. MUSCULOSKELETAL: No joint swelling or deformity. EXTREMITIES: No cyanosis, clubbing, patient has bilateral pedal edema with redness significant in the right lower extremity with local is of temperature patient has multiple ulcerations in both legs significant one in the right lower extremity which is stage III to for ulceration patient's right leg is wrapped NEUROLOGICAL: Gross neurological examination did not reveal any focal deficits. SKIN: As mentioned above - Labs CBC & Chem 7: 04/10/18 06:53 04/10/18 06:53 Labs: Abnormal Lab Results - Last 24 Hours (Table) 04/10/18 04/10/18 04/11/18 Range/Units 17:08 21:37 03:14 POC Glucose (mg/dL) 171 H 151 H 142 H (75-99) mg/dL 04/11/18 04/11/18 Range/Units 06:58 11:44 POC Glucose (mg/dL) 166 H 157 H (75-99) mg/dL Microbiology - Last 24 Hours (Table) 04/06/18 02:20 Blood Culture - Preliminary Blood No Growth after 120 hours Assessment and Plan Plan: -Sepsis secondary to diabetic foot infection diabetic foot ulcer and cellulitis , patient has severe sepsis for which patient is on IV fluids as mentioned above vancomycin and Zosyn and wound cultures are pending patient probably can be transferred out of ICU. Infectious disease evaluated the patient -Type 2 diabetes mellitus with fairly well-controlled blood sugars patient will be resumed on her home regimen along with sliding scale insulin -Acute renal failure on chronic kidney disease stage III chronic kidney disease is secondary to diabetic nephropathy acute renal failure secondary to sepsis at possibly acute tubular necrosis nonoliguric IV fluids will be continued as mentioned above -CVA TIA in the past patient is on both aspirin and Plavix, Aspin will be continued Plavix will be held -Gastroesophageal reflux disease -Sleep apnea and doesn't use CPAP machine at home -Depression for above-mentioned chronic medical problems patient will be resumed and continued on appropriate home medications -Odynophagia: Probably secondary to fungal esophagitis
[2018-04-11] MEDS: ACETAMINOPHEN TAB 325 MG TAB PO PRN (15:16)
[2018-04-11 17:21] LABS: Glucose,Whole Blood 160 mg/dL (75-99)
[2018-04-11] MEDS ORDERED: ALPRAZolam 0.25 MG TAB PO STA (20:19)
[2018-04-11 20:27] LABS: Glucose,Whole Blood 194 mg/dL (75-99)
[2018-04-11] MEDS: DOCUSATE 100 MG CAP PO SCH (22:00)
[2018-04-12] MEDS: oxyCODONE-APAP 10-325MG 1 EACH TAB PO PRN ×4 (05:02→21:02)
[2018-04-12] MEDS: SODIUM CHLORIDE 0.9% 1,000 ML IV SCH ×3 (06:04→19:18)
[2018-04-12 06:56] LABS: Glucose,Whole Blood 170 mg/dL (75-99)
[2018-04-12 08:24] LABS: HCT 30.8 % (34.0-46.0); HGB 9.5 gm/dL (11.4-16.0); Hypochromasia Marked; MCH 30.5 pg (25.0-35.0); MCHC 30.8 g/dL (31.0-37.0); MCV 98.9 fL (80.0-100.0); Mean Platelet Volume 7.5; Platelet Count 270 k/uL (150-450); RBC 3.12 m/uL (3.80-5.40); RDW 14.9 % (11.5-15.5); WBC 9.8 k/uL (3.8-10.6)
[2018-04-12 08:37] LABS: Calcium 8.1 mg/dL (8.4-10.2); Potassium 4.4 mmol/L (3.5-5.1)
[2018-04-12] MEDS: PREGABALIN 75 MG CAP PO SCH ×3 (08:51→21:02)
[2018-04-12] MEDS: HEPARIN SODIUM,PORCINE 5,000 UNIT/ML 1 ML VIAL SQ SCH ×2 (08:52→16:29)
[2018-04-12] MEDS: DOCUSATE 100 MG CAP PO SCH ×2 (08:52→21:02)
[2018-04-12] MEDS: INSULIN ASPART (NovoLOG) 100 UNIT/ML VIAL SQ SCH ×4 (08:53→21:02)
[2018-04-12] MEDS: CARVEDILOL 12.5 MG TAB PO SCH ×2 (08:53→16:29)
[2018-04-12] MEDS: ASPIRIN 81 MG PO SCH (08:53)
[2018-04-12] MEDS: PIPERACILLIN-TAZOBACTAM 3.375 GM in SODIUM CHLORIDE 0.9% 100 ML IVPB SCH ×2 (08:54→16:25)
[2018-04-12] MEDS: DULoxetine HCL 60 MG CAPSULE.DR PO SCH ×2 (08:54→21:02)
[2018-04-12] MEDS: SILVER sulfADIAZINE Cream 400 GM 1 APPLIC APPLIC TOPICAL SCH (08:55)
[2018-04-12] MEDS: NYSTATIN 100,000 UNIT/GM POWD 15 GM TOPICAL SCH ×2 (08:55→21:03)
[2018-04-12] MEDS: TOPIRAMATE 25 MG TAB PO SCH ×2 (08:55→21:02)
[2018-04-12] MEDS: MAG HYDROX/AL HYDROX/SIMETH 30 ML, LIDOCAINE VISCOUS 30 ML, NYSTATIN 100,000 UNIT/ML SU... PO SCH ×9 (09:00→22:42)
--- NOTE | 2018-04-12 09:30 | P.DS ---
Providers Date of admission: 04/06/18 03:25 Expected date of discharge: 04/12/18 Attending physician: Alix Chong Consults: 04/06/18 07:00 Consult Physician Routine Consulting Provider: Cindi Ragland Consult Reason/Comments: Dr whitmore request Do you want consulting provider notified?: Yes, Notify in am Consult Physician Routine Consulting Provider: Eugene Manuel Consult Reason/Comments: chronic wounds bilateral feet Do you want consulting provider notified?: Yes, Notify in am 04/06/18 22:28 Consult Physician Routine Consulting Provider: Lev Gonzalez Consult Reason/Comments: open wound on right great toe Do you want consulting provider notified?: Already Contacted Primary care physician: Mere Rodriguez Hospital Course: Final DIagnoses: -Sepsis secondary to diabetic foot infection diabetic foot ulcer and cellulitis , patient has severe sepsis for which patient is on IV fluids as mentioned above vancomycin and Zosyn and wound cultures are pending patient probably can be transferred out of ICU. Infectious disease evaluated the patient -Type 2 diabetes mellitus with fairly well-controlled blood sugars patient will be resumed on her home regimen along with sliding scale insulin -Acute renal failure on chronic kidney disease stage III chronic kidney disease is secondary to diabetic nephropathy acute renal failure secondary to sepsis at possibly acute tubular necrosis nonoliguric IV fluids will be continued as mentioned above -CVA TIA in the past patient is on both aspirin and Plavix, Aspin will be continued Plavix will be held -Gastroesophageal reflux disease -Sleep apnea and doesn't use CPAP machine at home -Depression for above-mentioned chronic medical problems patient will be resumed and continued on appropriate home medications -Odynophagia: Probably secondary to fungal esophagitis Hospital course:62-year-old female was admitted secondary to sepsis from right lower limb cellulitis, diabetic foot ulcers. Patient is presently on Zosyn and vancomycin patient's serum creatinine is bit worse probably from the Lasix she received as today patient is presently on 1 50 mL of normal saline. Doppler of the right lower extremity did not show any DVT. Patient did receive IV Lasix as today because of which her kidney function has worsened a bit. Patient overall appears to have improved more responsive. Patient is complaining of for odynophagia, does appear to have oral thrush Will use nystatin swish and swallow for now and will let infectious disease no about these complaints 04/08/2018 Patient looks much better today in control overnight events still has odynophagia, it to discuss with infectious disease regarding flucanazole speech therapy evaluated the patient. Patient is sitting on the chair 04/09/2018 Patient continued to improve, all the cultures are so far negative neck, possible day of discharge to subacute rehabilitation tomorrow . Odynophagia improved 04/10/2018 Patient is clinically doing well will be discharged to subacute rehabilitation on Thursday04/11/2018 Patient is still complaining of pain in the right leg and swelling in the right leg although fairly controlled pain with present regimen Significant clinical improvement. Receiving antibiotics as per ID. Patient will be discharged to subacute rehab. Pending discharge antibiotics as per ID. PHYSICAL EXAMINATION: GENERAL: The patient is alert and oriented x3, not in any acute distress. HEENT: Pupils are round and equally reacting to light. EOMI. No scleral icterus. No conjunctival pallor. Normocephalic, atraumatic. CARDIOVASCULAR: S1 and S2 present. No murmurs, rubs, or gallops. PULMONARY: Chest is clear to auscultation, no wheezing or crackles. ABDOMEN: Soft, nontender, nondistended, normoactive bowel sounds. No palpable organomegaly. MUSCULOSKELETAL: No joint swelling or deformity. EXTREMITIES: Bilateral lower extremity dressings clean dry and intact NEUROLOGICAL: Gross neurological examination did not reveal any focal deficits. Microbiology 04/06/18 02:20 Blood Blood Culture - Final No Growth after 144 hours 04/06/18 05:05 Urine,Voided Urine Culture - Final The impression and plan of care has been dictated as directed. : I performed a history and examination of this patient, discussed the same with the dictator. I agree with the dictator's note ,documented as a scribe. Any additional findings or plans will be noted. Time taken: 35min. Patient Condition at Discharge: Stable Plan - Discharge Summary Discharge Rx Participant: No New Discharge Prescriptions: New Docusate [Colace] 100 mg PO BID cap Lidocaine Viscous [Xylocaine Viscous 2%] 30 ml PO TID ml Nystatin 100,000 Unit/gm Powd [Mycostatin Powder] 1 applic TOPICAL BID applic Nystatin 100,000 Unit/ml Susp [Mycostatin Oral Susp] 3,000,000 unit PO TID cup SILVER sulfADIAZINE Cream [Silvadene 1% Cream] 1 applic TOPICAL DAILY applic INSULIN LISPRO (HumaLOG) [humaLOG] 0 unit SQ ACHS #1 vial Continue Clopidogrel Bisulfate [Plavix] 75 mg PO DAILY DULoxetine HCL [Cymbalta] 60 mg PO BID Calcitriol 0.5 mcg PO DAILY Topiramate [Topamax] 25 mg PO BID Ferrous Sulfate [Iron (65 MG Elemental)] 325 mg PO DAILY Atorvastatin [Lipitor] 40 mg PO HS Aspirin 81 mg PO DAILY Ondansetron HCl [Zofran] 8 mg PO Q8H PRN PRN Reason: Nausea Carvedilol [Coreg*] 12.5 mg PO BID oxyCODONE-APAP 10-325MG [Percocet 10-325 mg] 1 tab PO Q6H PRN #12 tab PRN Reason: Moderate Pain Pregabalin [Lyrica] 75 mg PO TID #9 cap Changed amLODIPine [Norvasc] 5 mg PO DAILY #0 Insulin Glargine [Lantus] 20 unit SQ HS #0 Discharge Medication List Calcitriol 0.5 mcg PO DAILY 09/30/13 [History] Clopidogrel Bisulfate [Plavix] 75 mg PO DAILY 09/30/13 [History] DULoxetine HCL [Cymbalta] 60 mg PO BID 09/30/13 [History] Ferrous Sulfate [Iron (65 MG Elemental)] 325 mg PO DAILY 07/06/16 [History] Topiramate [Topamax] 25 mg PO BID 07/06/16 [History] Aspirin 81 mg PO DAILY 01/06/17 [History] Atorvastatin [Lipitor] 40 mg PO HS 01/06/17 [History] Carvedilol [Coreg*] 12.5 mg PO BID 04/06/18 [History] Ondansetron HCl [Zofran] 8 mg PO Q8H PRN 04/06/18 [History] Docusate [Colace] 100 mg PO BID cap 04/12/18 [Rx] INSULIN LISPRO (HumaLOG) [humaLOG] 0 unit SQ ACHS #1 vial 04/12/18 [Rx] Insulin Glargine [Lantus] 20 unit SQ HS #0 04/12/18 [Rx] Lidocaine Viscous [Xylocaine Viscous 2%] 30 ml PO TID ml 04/12/18 [Rx] Nystatin 100,000 Unit/gm Powd [Mycostatin Powder] 1 applic TOPICAL BID applic 04/12/18 [Rx] Nystatin 100,000 Unit/ml Susp [Mycostatin Oral Susp] 3,000,000 unit PO TID cup 04/12/18 [Rx] Pregabalin [Lyrica] 75 mg PO TID #9 cap 04/12/18 [Rx] SILVER sulfADIAZINE Cream [Silvadene 1% Cream] 1 applic TOPICAL DAILY applic [Rx] amLODIPine [Norvasc] 5 mg PO DAILY #0 04/12/18 [Rx] oxyCODONE-APAP 10-325MG [Percocet 10-325 mg] 1 tab PO Q6H PRN #12 tab 04/12/18 [ Rx] Follow up Appointment(s)/Referral(s): Timmy Martin MD [STAFF PHYSICIAN] - 3 Days (While at subacute rehab) Mere Rodriguez DO [Primary Care Provider] - 1 Week (After DC from subacute rehab ) Activity/Diet/Wound Care/Special Instructions: [facility] antibiotics as per ID CBC, BMP in 3 days Diet: Consistent carb Activity: As tolerated
[2018-04-12 09:45] LABS: Prothrombin Time 10.6 sec (9.0-12.0)
[2018-04-12 12:19] LABS: Glucose,Whole Blood 168 mg/dL (75-99)
[2018-04-12 12:50] VITALS: RESP 18
[2018-04-12 16:42] LABS: Glucose,Whole Blood 151 mg/dL (75-99)
--- NOTE | 2018-04-12 19:18 | P.PN ---
Subjective Progress Note Date: 04/12/18 This is a 62-year-old female last seen in January 2016 for cellulitis of the left leg with a long-standing history of obesity as well as rheumatoid arthritis, uncontrolled diabetes mellitus. Patient states that she has had fever, chills, swelling on her right side of her face along with her right ear and a sore throat for about one week. Her went to [facility] and was gone for 4 days. He came home yesterday evening around 11:30 and found her on the floor next to the bed and appeared that she had fallen. He calculated that she must have been on the floor for about 5 hours. Initially, she was barely able to talk and there was some mental status changes. She had extreme weakness, injured the left toes but no other injury was noted. Patient did have a life alert on but apparently did not use it. He checked her blood sugar was 326. He also gives history that the patient has a chronic diabetic ulcer to the right great toe that has been under the care of Dr. Chiu and Shane for the past 6 months with no improvement. Patient apply some type of ointment daily and wraps it. Dr. Chiu does debridements. Patient also has wounds to the left lower leg from scratching. She has chronic lymphedema but the right leg is brighter red now than normal. Patient thinks her last hemoglobin A1c was in the eights down from 9+. Patient follows with Dr. Selwyn crowley for her diabetes. Patient also follows with Dr. Rocha for previous stroke with no residuals. Her contacted EMS and patient was brought in to [facility] emergency center. Temperature 103, heart rate 107, blood pressure 185/84 and pulse ox 96%. White count is 16.5, creatinine 1.67, blood sugars running in the 300s and 400s, initial lactic acid 3.4 with repeat of 4.7, CK 1265. Troponin was normal. Albumin 2.8. Urinalysis was cloudy, blood moderate, ketones trace. Influenza testing negative. Acetone negative. CAT scan of the brain showed no acute intracranial abnormality with stable chronic small vessel ischemic change. Chest x-ray showed pulmonary vascular congestion, infectious or inflammatory process not excluded. Patient was provided 2 L of IV fluid, ceftriaxone, cefepime, vancomycin, Tylenol and insulin and admitted to the cardiac stepdown unit. Patient is currently waiting in the ER for a bed on the unit. 04/07/2018 reveals the patient to be feeling slightly better today. Her level of confusion is improved. She is definitely able to converse much more readily. She still has some discomforts especially to her legs which are chronically bother her in a source of chronic pain for which she takes Percocet at home. Also has complaints of some right ear pain and some discomfort to the right side of her face that's actually improving since yesterday. She is unaware of any fevers or chills. No rigors. Mouth is dry but she's been able to eat between 50 and 75% of her tray. 04/09/2018 patient is feeling somewhat better today. Swelling to the right side of her face and right pinna are feeling better. Breathing is feeling better. No pain in her chest. Remains with profound generalized weakness. Legs are feeling slightly better and that they have less discomfort remains swollen and uncomfortable. 04/12/2018 Patient remains with some generalized weakness but does feel better than admission. She's been up in the chair for the first time and is feeling weak. Her legs are uncomfortable because her legs are wrapped. As she has related before she doesn't like to have her legs wrapped because of the edema and the discomfort. She is not able to understand at this time the importance of compression therapy to help with her edema. Her has related that she does have sequential compression pumps at home but does not take the time to use them. Objective - Vital Signs Vital signs: Vital Signs Temp 98.7 F 04/12/18 12:50 Pulse 73 04/12/18 16:00 Resp 18 04/12/18 16:00 BP 154/75 04/12/18 12:50 Pulse Ox 96 04/12/18 12:50 Intake & Output 04/11/18 04/12/18 04/12/18 18:59 06:59 18:59 Output Total 200 200 Balance -200 -200 Weight 149.5 kg Output: Urine 200 200 Other: Voiding Method Diaper Diaper Diaper Incontinent # Voids 2 5 - Exam GEN: Morbidly obese 62-year-old woman fabian comfortably in bed She is currently afebrile HEENT: Anicteric conjunctiva are pink and moist nasal mucosa grossly intact without significant lesions, there is no thrush. Full denture. There is improvement of the erythema and edema to the right side of her face and of right ear. Auditory canal seems to be without internal edema or erythema. No lesion noted Neck: The neck is supple without significant lymphadenopathy or thyromegaly. Lungs: Good bilateral air entry without significant crackles or wheezing. There is no significant bronchial sounds. Heart: Regular rate and rhythm with an audible S1-S2, no S3 no S4. There is no significant murmur. Abdomen: Obese, Positive bowel sounds soft and nontender without palpable masses or organomegaly. There was no guarding or rebound. Erythema under her abdominal fold. Extremities: The upper extremities have excellent pulses they are symmetric, no significant petechiae or telangiectasia. No splinter hemorrhages were noted. The bilateral extremities show evidence of the chronic lower extremity edema and lymphedema. The legs remained tender, but she complains about the wraps rather than new tenderness. To the right great toe plantar there is a chronic diabetic ulcer with scant amount of drainage. On the right lower extremity there is Improved edema, and marked improved erythema.. Left lower extremity has linear-type lesions to the lower pretibial area. prior small abrasions are healing Neuro: Awake alert oriented to person place and time. improved further over the last day - Labs CBC & Chem 7: 04/12/18 08:15 04/12/18 08:15 Labs: Abnormal Lab Results - Last 24 Hours (Table) 04/11/18 04/12/18 04/12/18 Range/Units 20:26 06:54 08:15 RBC 3.12 L (3.80-5.40) m/uL Hgb 9.5 L (11.4-16.0) gm/dL Hct 30.8 L (34.0-46.0) % MCHC 30.8 L (31.0-37.0) g/dL Chloride (98-107) mmol/L Glucose (74-99) mg/dL POC Glucose (mg/dL) 194 H 170 H (75-99) mg/dL Calcium (8.4-10.2) mg/dL 04/12/18 04/12/18 04/12/18 Range/Units 08:15 12:18 16:41 RBC (3.80-5.40) m/uL Hgb (11.4-16.0) gm/dL Hct (34.0-46.0) % MCHC (31.0-37.0) g/dL Chloride 114 H (98-107) mmol/L Glucose 196 H (74-99) mg/dL POC Glucose (mg/dL) 168 H 151 H (75-99) mg/dL Calcium 8.1 L (8.4-10.2) mg/dL Microbiology - Last 24 Hours (Table) 04/06/18 02:20 Blood Culture - Final Blood No Growth after 144 hours Laboratory Results WBC 9.8 k/uL (3.8-10.6) 04/12/18 08:15 RBC 3.12 m/uL (3.80-5.40) L 04/12/18 08:15 Hgb 9.5 gm/dL (11.4-16.0) L 04/12/18 08:15 Hct 30.8 % (34.0-46.0) L 04/12/18 08:15 MCV 98.9 fL (80.0-100.0) 04/12/18 08:15 MCH 30.5 pg (25.0-35.0) 04/12/18 08:15 MCHC 30.8 g/dL (31.0-37.0) L 04/12/18 08:15 RDW 14.9 % (11.5-15.5) 04/12/18 08:15 Plt Count 270 k/uL (150-450) 04/12/18 08:15 Neutrophils % 84 % 04/09/18 05:34 Neutrophils % (Manual) 64 % 04/07/18 05:16 Band Neutrophils % 28 % 04/07/18 05:16 Lymphocytes % 10 % 04/09/18 05:34 Lymphocytes % (Manual) 4 % 04/07/18 05:16 Monocytes % 3 % 04/09/18 05:34 Monocytes % (Manual) 3 % 04/07/18 05:16 Eosinophils % 1 % 04/09/18 05:34 Basophils % 0 % 04/09/18 05:34 Basophils % (Manual) 1 % 04/07/18 05:16 Metamyelocytes % 13 % 04/06/18 07:00 Myelocytes % 3 % 04/06/18 07:00 Neutrophils # 9.8 k/uL (1.3-7.7) H 04/09/18 05:34 Neutrophils # (Manual) 13.10 k/uL (1.3-7.7) H 04/07/18 05:16 Lymphocytes # 1.1 k/uL (1.0-4.8) 04/09/18 05:34 Lymphocytes # (Manual) 0.57 k/uL (1.0-4.8) L 04/07/18 05:16 Monocytes # 0.4 k/uL (0-1.0) 04/09/18 05:34 Monocytes # (Manual) 0.43 k/uL (0-1.0) 04/07/18 05:16 Eosinophils # 0.2 k/uL (0-0.7) 04/09/18 05:34 Basophils # 0.0 k/uL (0-0.2) 04/09/18 05:34 Basophils # (Manual) 0.14 k/uL (0-0.2) 04/07/18 05:16 Metamyelocytes # (Man) 2.15 k/uL (0) H 04/06/18 07:00 Myelocytes # (Manual) 0.50 k/uL (0) H 04/06/18 07:00 Nucleated RBCs 0 /100 WBC (0-0) 04/07/18 05:16 Manual Slide Review Performed 04/07/18 05:16 Toxic Granulation Present 04/06/18 07:00 Hypochromasia Marked 04/12/18 08:15 PT 10.6 sec (9.0-12.0) 04/12/18 08:59 INR 1.0 (<1.2) 04/12/18 08:59 APTT 34.1 sec (22.0-30.0) H 04/10/18 06:53 VBG pH 7.25 (7.31-7.41) L 04/06/18 02:20 VBG pCO2 41 mmHg (37-51) 04/06/18 02:20 VBG HCO3 17 mmol/L (24-28) L 04/06/18 02:20 Sodium 143 mmol/L (137-145) 04/12/18 08:15 Potassium 4.4 mmol/L (3.5-5.1) 04/12/18 08:15 Chloride 114 mmol/L (98-107) H 04/12/18 08:15 Carbon Dioxide 25 mmol/L (22-30) 04/12/18 08:15 Anion Gap 4 mmol/L 04/12/18 08:15 BUN 16 mg/dL (7-17) 04/12/18 08:15 Creatinine 1.04 mg/dL (0.52-1.04) 04/12/18 08:15 Est GFR (CKD-EPI)AfAm 66 (>60 ml/min/1.73 sqM) 04/12/18 08:15 Est GFR (CKD-EPI)NonAf 58 (>60 ml/min/1.73 sqM) 04/12/18 08:15 Glucose 196 mg/dL (74-99) H 04/12/18 08:15 POC Glucose (mg/dL) 151 mg/dL (75-99) H 04/12/18 16:41 POC Glu [place] ID Mono Finch 04/12/18 16:[address] Glu mg/dL 214 04/06/18 11:03 Hemoglobin A1c 9.1 % (4.0-6.0) H 04/06/18 11:03 Lactic Ac Sepsis Rflx Y 04/06/18 07:25 Plasma Lactic Acid Flex 3.1 mmol/L (0.7-2.0) H* 04/06/18 11:03 Calcium 8.1 mg/dL (8.4-10.2) L 04/12/18 08:15 Magnesium 2.0 mg/dL (1.6-2.3) 04/07/18 05:16 Total Bilirubin 0.6 mg/dL (0.2-1.3) 04/07/18 05:16 AST 76 U/L (14-36) H 04/07/18 05:16 ALT 35 U/L (9-52) 04/07/18 05:16 Alkaline Phosphatase 106 U/L (38-126) 04/07/18 05:16 Creatine Kinase 1265 U/L (30-135) H* 04/06/18 02:20 CK-MB (CK-2) 3.3 ng/mL (0.0-2.4) H 04/06/18 02:20 Troponin I <0.012 ng/mL (0.000-0.034) 04/06/18 02:20 Total Protein 5.3 g/dL (6.3-8.2) L 04/07/18 05:16 Albumin 2.3 g/dL (3.5-5.0) L 04/07/18 05:16 Urine Color Yellow 04/06/18 05:05 Urine Appearance Cloudy (Clear) H 04/06/18 05:05 Urine pH 5.0 (5.0-8.0) 04/06/18 05:05 Ur Specific [place] 1.016 (1.001-1.035) 04/06/18 05:05 Urine Protein 2+ (Negative) H 04/06/18 05:05 Urine Glucose (UA) 3+ (Negative) H 04/06/18 05:05 Urine Ketones Trace (Negative) H 04/06/18 05:05 Urine Blood Moderate (Negative) H 04/06/18 05:05 Urine Nitrite Negative (Negative) 04/06/18 05:05 Urine Bilirubin Negative (Negative) 04/06/18 05:05 Urine Urobilinogen <2.0 mg/dL (<2.0) 04/06/18 05:05 Ur Leukocyte Esterase Negative (Negative) 04/06/18 05:05 Urine RBC 4 /hpf (0-5) 04/06/18 05:05 Urine WBC 32 /hpf (0-5) H 04/06/18 05:05 Ur Squamous Epith Cells 2 /hpf (0-4) 04/06/18 05:05 Hyaline Casts 12 /lpf (0-2) H 04/06/18 05:05 Urine Mucus Rare /hpf (None) H 04/06/18 05:05 Acetone, Qual Negative (Negative) 04/06/18 02:20 C. difficile (EIA) Intrp Negative (Negative) 04/06/18 14:50 Influenza Type A RNA Not Detected (Not Detectd) 04/06/18 03:20 Influenza Type B (PCR) Not Detected (Not Detectd) 04/06/18 03:20 Microbiology 04/06/18 02:20 Blood Blood Culture - Final No Growth after 144 hours 04/06/18 05:05 Urine,Voided Urine Culture - Final Assessment and Plan (1) Cellulitis Narrative/Plan: As has noted this obese woman was found by her on the floor after return from his trip up [place]. She was weak and dehydrated and unable to speak very well. She has had hydration with some improvement of her status. She still weak, her mouth is dry and does not feel well. As noted she has evidence of the extensive ulceration of the right foot plantar an injury to the left foot which is somewhat new as per the . Local wound care will be utilized the great toe with the medical honey and wrap in place. Request venous Doppler studies sure there is no clots. If there is no deep venous thrombosis week and then utilizes Silvadene wrap with compression to the bilateral lower extremities to help. The patient's relates that there are compression pumps in the home for her chronic edema that she simply doesn't use. Hopefully we'll be able to work with the discharge team to have evaluation the home potentially have new sequential sleeves that she can wear and help with her lower extremity edema. If she is not vascular surgery consultation this can be considered once her ulcerations improved which we will follow with the wound center after discharge. Antimicrobial therapy this was Zosyn and vancomycin for now until we have further data. There is a swelling to the right ear which the patient believes may be related to her inability to move and laying on it while she was on the floor. Otitis external often has Pseudomonas and constantly the Zosyn is appropriate at this time. 04/07/2018 finds the patient to be more awake alert and interactive. Has complaints of her chronic pain seems to be comfortable at the moment. Duplex scan since come back negative for deep venous thrombosis and consequently Silvadene the multilayer wraps and then applied to the bilateral lower extremities to help with her chronic edema. The wound care has been applied to the chronic ulceration to the right great toe with the silver alginate. Antibiotic therapy continues with Zosyn and vancomycin pending further culture data. Fortunately the significant swelling to the right ear and right face seems to have improved with current therapy. It is likely that she did suffer some difficulty with some pressure to the right side of face and the ear in the time that she was laying on the floor before she was brought to hospital. 04/09/2018 patient is virtually having further improvement. The pain and swelling to the right side of her face and right pinna hip improved. Mentation is improving. The lower extremities with current therapy are also improving but certainly not resolved. It appears she was going to rehab after her hospital stay to receive ongoing care. This will also include a course of intravenous antibiotic therapy. Vancomycin is discontinued. No MRSA is isolated. Zosyn continues for now. We' ll likely be utilized for 10-14 days at the [facility] to complete her course of therapy. 04/12/2018 patient has had some further improvement of her status. The extensive cellulitis especially right lower extremity has improved. Her chronic diabetic ulcer is also improving with offloading and current care. The extensive edema is improving now that wraps are in place. She does complain about them because of the discomfort. We'll add some extra padding especially the upper aspect of the wraps were she is getting some irritation. She likely will go to [facility] for ongoing rehab. For antimicrobial therapy cefuroxime 500 mg twice a day for 10 days as suggested at the [facility]. With her marked improvement does not appear to need IV antibiotic therapy. We'll be happy to follow her in the wound healing center regarding her foot ulceration.if possible should utilize her sequential compression pumps while to help with her chronic lymphedema. Current Visit: Yes Status: Acute Code(s): L03.90 - CELLULITIS, UNSPECIFIED SNOMED Code(s): 449031625 (2) Sepsis Current Visit: Yes Status: Acute Code(s): A41.9 - SEPSIS, UNSPECIFIED ORGANISM SNOMED Code(s): 60652029
[2018-04-12 21:01] LABS: Glucose,Whole Blood 157 mg/dL (75-99)
[2018-04-13] MEDS: HEPARIN SODIUM,PORCINE 5,000 UNIT/ML 1 ML VIAL SQ SCH ×2 (00:01→08:11)
[2018-04-13] MEDS: PIPERACILLIN-TAZOBACTAM 3.375 GM in SODIUM CHLORIDE 0.9% 100 ML IVPB SCH ×2 (00:01→08:12)
[2018-04-13] MEDS: SODIUM CHLORIDE 0.9% 1,000 ML IV SCH ×2 (02:18→10:34)
[2018-04-13] MEDS: oxyCODONE-APAP 10-325MG 1 EACH TAB PO PRN ×2 (04:14→10:39)
[2018-04-13 06:53] LABS: Glucose,Whole Blood 164 mg/dL (75-99)
[2018-04-13] MEDS: CARVEDILOL 12.5 MG TAB PO SCH (08:11)
[2018-04-13] MEDS: INSULIN ASPART (NovoLOG) 100 UNIT/ML VIAL SQ SCH ×2 (08:11→12:48)
[2018-04-13] MEDS: DULoxetine HCL 60 MG CAPSULE.DR PO SCH (08:13)
[2018-04-13] MEDS: ASPIRIN 81 MG PO SCH (08:13)
[2018-04-13] MEDS: NYSTATIN 100,000 UNIT/GM POWD 15 GM TOPICAL SCH (08:13)
[2018-04-13] MEDS: DOCUSATE 100 MG CAP PO SCH (08:13)
[2018-04-13] MEDS: PREGABALIN 75 MG CAP PO SCH (08:14)
[2018-04-13] MEDS: SILVER sulfADIAZINE Cream 400 GM 1 APPLIC APPLIC TOPICAL SCH (08:14)
[2018-04-13] MEDS: TOPIRAMATE 25 MG TAB PO SCH (08:15)
[2018-04-13] MEDS: MAG HYDROX/AL HYDROX/SIMETH 30 ML, LIDOCAINE VISCOUS 30 ML, NYSTATIN 100,000 UNIT/ML SU... PO SCH ×3 (08:15)
[2018-04-13 10:55] LABS: Glucose,Whole Blood 176 mg/dL (75-99)
[2018-04-13 11:30] VITALS: TEMP 98.1
[2018-04-13] MEDS ORDERED: oxyCODONE-APAP 10-325MG 1 EACH TAB PO STA (12:39)
[2018-04-13 12:55] VITALS: BP 168/95; PULSE 81
--- NOTE | 2018-04-13 13:22 | P.DS ---
Providers Date of admission: 04/06/18 03:25 Attending physician: Alix Crawford Consults: 04/06/18 07:00 Consult Physician Routine Consulting Provider: Cindi Ragland Consult Reason/Comments: Dr crawford request Do you want consulting provider notified?: Yes, Notify in am Consult Physician Routine Consulting Provider: Eugene Manuel Consult Reason/Comments: chronic wounds bilateral feet Do you want consulting provider notified?: Yes, Notify in am 04/06/18 22:28 Consult Physician Routine Consulting Provider: Lev Gonzalez Consult Reason/Comments: open wound on right great toe Do you want consulting provider notified?: Already Contacted Primary care physician: Mere [facility] Course: No overnight events patient is clinically doing well is waiting prior authorization. Patient was seen and examined today. PHYSICAL EXAMINATION: GENERAL: The patient is alert and oriented x3, not in any acute distress. Obese HEENT: Pupils are round and equally reacting to light. EOMI. No scleral icterus. No conjunctival pallor. Normocephalic, atraumatic. No pharyngeal erythema. No thyromegaly. CARDIOVASCULAR: S1 and S2 present. No murmurs, rubs, or gallops. PULMONARY: Chest is clear to auscultation, no wheezing or crackles. ABDOMEN: Soft, nontender, nondistended, normoactive bowel sounds. No palpable organomegaly. MUSCULOSKELETAL: No joint swelling or deformity. EXTREMITIES: No cyanosis, clubbing, or pedal edema. Patient has Sina bandages to both legs. NEUROLOGICAL: Gross neurological examination did not reveal any focal deficits. SKIN: No rashes. Further details of hospitalization course and medical problems please refer to dictation of my nurse practitioner from yesterday Patient Condition at Discharge: Stable Plan - Discharge Summary Discharge Rx Participant: No New Discharge Prescriptions: New Docusate [Colace] 100 mg PO BID cap Lidocaine Viscous [Xylocaine Viscous 2%] 30 ml PO TID ml Nystatin 100,000 Unit/gm Powd [Mycostatin Powder] 1 applic TOPICAL BID applic Nystatin 100,000 Unit/ml Susp [Mycostatin Oral Susp] 3,000,000 unit PO TID cup SILVER sulfADIAZINE Cream [Silvadene 1% Cream] 1 applic TOPICAL DAILY applic INSULIN LISPRO (HumaLOG) [humaLOG] 0 unit SQ ACHS #1 vial Cefuroxime Axetil [Ceftin] 500 mg PO BID #20 tab Continue Clopidogrel Bisulfate [Plavix] 75 mg PO DAILY DULoxetine HCL [Cymbalta] 60 mg PO BID Calcitriol 0.5 mcg PO DAILY Topiramate [Topamax] 25 mg PO BID Ferrous Sulfate [Iron (65 MG Elemental)] 325 mg PO DAILY Atorvastatin [Lipitor] 40 mg PO HS Aspirin 81 mg PO DAILY Ondansetron HCl [Zofran] 8 mg PO Q8H PRN PRN Reason: Nausea Carvedilol [Coreg*] 12.5 mg PO BID oxyCODONE-APAP 10-325MG [Percocet 10-325 mg] 1 tab PO Q6H PRN #12 tab PRN Reason: Moderate Pain Pregabalin [Lyrica] 75 mg PO TID #9 cap Changed amLODIPine [Norvasc] 5 mg PO DAILY #0 Insulin Glargine [Lantus] 20 unit SQ HS #0 Discharge Medication List Calcitriol 0.5 mcg PO DAILY 09/30/13 [History] Clopidogrel Bisulfate [Plavix] 75 mg PO DAILY 09/30/13 [History] DULoxetine HCL [Cymbalta] 60 mg PO BID 09/30/13 [History] Ferrous Sulfate [Iron (65 MG Elemental)] 325 mg PO DAILY 07/06/16 [History] Topiramate [Topamax] 25 mg PO BID 07/06/16 [History] Aspirin 81 mg PO DAILY 01/06/17 [History] Atorvastatin [Lipitor] 40 mg PO HS 01/06/17 [History] Carvedilol [Coreg*] 12.5 mg PO BID 04/06/18 [History] Ondansetron HCl [Zofran] 8 mg PO Q8H PRN 04/06/18 [History] Cefuroxime Axetil [Ceftin] 500 mg PO BID #20 tab 04/12/18 [Rx] Docusate [Colace] 100 mg PO BID cap 04/12/18 [Rx] INSULIN LISPRO (HumaLOG) [humaLOG] 0 unit SQ ACHS #1 vial 04/12/18 [Rx] Insulin Glargine [Lantus] 20 unit SQ HS #0 04/12/18 [Rx] Lidocaine Viscous [Xylocaine Viscous 2%] 30 ml PO TID ml 04/12/18 [Rx] Nystatin 100,000 Unit/gm Powd [Mycostatin Powder] 1 applic TOPICAL BID applic 04/12/18 [Rx] Nystatin 100,000 Unit/ml Susp [Mycostatin Oral Susp] 3,000,000 unit PO TID cup 04/12/18 [Rx] Pregabalin [Lyrica] 75 mg PO TID #9 cap 04/12/18 [Rx] SILVER sulfADIAZINE Cream [Silvadene 1% Cream] 1 applic TOPICAL DAILY applic [Rx] amLODIPine [Norvasc] 5 mg PO DAILY #0 04/12/18 [Rx] oxyCODONE-APAP 10-325MG [Percocet 10-325 mg] 1 tab PO Q6H PRN #12 tab 04/12/18 [ Rx] Follow up Appointment(s)/Referral(s): Timmy Martin MD [STAFF PHYSICIAN] - 3 Days (While at subacute rehab) Mere Rodriguez DO [Primary Care Provider] - 1 Week (After DC from subacute rehab ) Patient Instructions/Handouts: Cefuroxime (By mouth), Oxycodone/Acetaminophen ( By mouth), Pregabalin (By mouth), Insulin Lispro (By injection), Cellulitis (DC) , Rhabdomyolysis (DC), Sepsis (GEN), Lactic Acidosis (GEN) Activity/Diet/Wound Care/Special Instructions: [place] antibiotics as per ID CBC, BMP in 3 days Diet: Consistent carb Activity: As tolerated
[2018-04-13 13:55] VITALS: BMI 47.4
== END 2018-04-13 14:55 | DRG 871 ==
LOC: EC 01:50 → 4SSUR 03:25 → 3SCARD 07:44 → 2SICU 13:30 → 3NMEDONC 04-09 11:58
PROVIDERS: ADMIT Hospitalist; ATTEND Hospitalist
DX: A41.9 Sepsis, unspecified organism (principal); N17.0 Acute kidney failure with tubular necrosis; L03.115 Cellulitis of right lower limb; Z68.42 Body mass index [BMI] 45.0-49.9, adult; I69.354 Hemiplegia and hemiparesis following cerebral infarction affecting left non-dominant side; M62.82 Rhabdomyolysis; E87.2 Acidosis; B37.0 Candidal stomatitis; B37.81 Candidal esophagitis; L03.116 Cellulitis of left lower limb; E44.0 Moderate protein-calorie malnutrition; R65.20 Severe sepsis without septic shock; E11.621 Type 2 diabetes mellitus with foot ulcer; E11.22 Type 2 diabetes mellitus with diabetic chronic kidney disease; E11.628 Type 2 diabetes mellitus with other skin complications; E66.01 Morbid (severe) obesity due to excess calories; E11.65 Type 2 diabetes mellitus with hyperglycemia; L97.519 Non-pressure chronic ulcer of other part of right foot with unspecified severity; N18.3 Chronic kidney disease, stage 3 (moderate); I12.9 Hypertensive chronic kidney disease with stage 1 through stage 4 chronic kidney disease, or unspecified chronic kidney disease; R40.2362 Coma scale, best motor response, obeys commands, at arrival to emergency department; R40.2142 Coma scale, eyes open, spontaneous, at arrival to emergency department; R40.2242 Coma scale, best verbal response, confused conversation, at arrival to emergency department; K21.9 Gastro-esophageal reflux disease without esophagitis; G47.33 Obstructive sleep apnea (adult) (pediatric); M06.9 Rheumatoid arthritis, unspecified; H60.90 Unspecified otitis externa, unspecified ear; E86.0 Dehydration; G89.29 Other chronic pain; M54.2 Cervicalgia; F32.9 Major depressive disorder, single episode, unspecified; Z79.82 Long term (current) use of aspirin; Z79.02 Long term (current) use of antithrombotics/antiplatelets; Z79.4 Long term (current) use of insulin; Z79.899 Other long term (current) drug therapy; Z71.3 Dietary counseling and surveillance; Z98.84 Bariatric surgery status; Z83.3 Family history of diabetes mellitus; Z80.1 Family history of malignant neoplasm of trachea, bronchus and lung; Z82.49 Family history of ischemic heart disease and other diseases of the circulatory system; W06.XXXA Fall from bed, initial encounter
CPT/HCPCS: 36415; 70450; 71045; 80048; 80053; 81001; 82009; 82550; 82553; 82803; 83036; 83605; 83735; 84484; 85025; 85027; 85610; 85730; 87040; 87086; 87324; 87502; 93005; 93970; 96365; 96368; 96372; 99285

== ENCOUNTER 2018-06-05 21:28 | Inpatient (IN) | payer MEDICARE ==
--- NOTE | 2018-06-05 21:46 | ED ---
Altered Mental Status HPI - General Stated Complaint: Hyperglycemia Time Seen by Provider: 06/05/18 21:28 Source: patient, EMS, RN notes reviewed, old records reviewed Mode of arrival: EMS - History of Present Illness Initial Comments: This is a 63-year-old female with a history of multiple medical issues including renal disease who was brought in by EMS because of lethargy decreased level of consciousness. Apparently family called because she was lethargic and demonstrating generalized weakness apparently her glucose was 490 at home she apparently runs 1 8200 upon arrival. Medics evaluated patient she had a 5:15 glucose 100.2 temperature appear to be dry. She also the right lower extremity area of erythema and increased localized temperature consistent with a cellulitis per report. No reports of falls no nausea vomiting diarrhea. MD Complaint: decreased responsiveness, weakness, other - Related Data Home Medications Medication Instructions Recorded Confirmed Calcitriol 0.5 mcg PO DAILY 09/30/13 06/05/18 Clopidogrel Bisulfate [Plavix] 75 mg PO DAILY 09/30/13 06/05/18 DULoxetine HCL [Cymbalta] 60 mg PO BID 09/30/13 06/05/18 Ferrous Sulfate [Iron (65 MG 325 mg PO DAILY 07/06/16 06/05/18 Elemental)] Topiramate [Topamax] 25 mg PO BID 07/06/16 06/05/18 Aspirin 81 mg PO DAILY 01/06/17 06/05/18 Atorvastatin [Lipitor] 40 mg PO DAILY 01/06/17 06/05/18 Carvedilol [Coreg*] 12.5 mg PO BID 04/06/18 06/05/18 Insulin Aspart [NovoLOG Flexpen] 10 units SQ AC-LUNCH 06/05/18 06/05/18 Insulin Aspart [NovoLOG Flexpen] 15 units SQ AC-BRKFST 06/05/18 06/05/18 Insulin Aspart [NovoLOG Flexpen] 15 units SQ AC-SUPPER 06/05/18 06/05/18 Insulin Glargine [Lantus] 30 unit SQ HS 06/05/18 06/05/18 Ondansetron HCl [Zofran] 4 mg PO Q8H PRN 06/05/18 06/05/18 amLODIPine [Norvasc] 10 mg PO DAILY 06/05/18 06/05/18 Previous Rx's Medication Instructions Recorded Pregabalin [Lyrica] 75 mg PO TID #9 cap 04/12/18 oxyCODONE-APAP 10-325MG [Percocet 1 tab PO Q6H PRN #12 tab 04/12/18 10-325 mg] Allergies Allergy/AdvReac Type Severity Reaction Status Date / Time No Known Allergies Allergy Verified 06/05/18 22:21 Review of Systems ROS Statement: Those systems with pertinent positive or pertinent negative responses have been documented in the HPI. ROS Other: All systems not noted in ROS Statement are negative. 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 lt side weaker than rt", vertigo, neck pain, mini stroke nov 2016. no cpap used. Ulcer on right great toe History of Any Multi-Drug Resistant Organisms: None Reported Past Surgical History: Breast Surgery Additional Past Surgical History / Comment(s): breast biopsy, gastric sleeve 11/07/14, colonoscopy 04/14/14 Past Anesthesia/Blood Transfusion Reactions: Motion Sickness Past Psychological History: Depression Additional Psychological History / Comment(s): and lives with family home with her . 2 adult children. No tobacco or alcohol use. No experience. No international travel. Pet cats at home they are not new. Used to work in a care of handicapped persons Smoking Status: Never smoker Past Alcohol Use History: None Reported Past Drug Use History: None Reported - Past Family History Mother Family Medical History: Diabetes Mellitus Additional Family Medical History / Comment(s): heart attack, Brother of lung cancer 04/19/14 Father Family Medical History: Cancer Additional Family Medical History / Comment(s): lung cancer Brother(s) Family Medical History: Cancer Additional Family Medical History / Comment(s): LUNG General Exam - General Exam Comments Initial Comments: This is a well-developed obese appearing female awake alert but lethargic. She is a poor historian General appearance: alert, lethargic Head exam: Present: atraumatic, normocephalic, normal inspection Eye exam: Present: normal appearance, PERRL, EOMI. Absent: scleral icterus, conjunctival injection, periorbital swelling ENT exam: Present: mucous membranes dry Neck exam: Present: normal inspection, full ROM, other (No stridor JVD or bruits). Absent: tenderness, meningismus, lymphadenopathy Respiratory exam: Present: normal lung sounds bilaterally, decreased breath sounds. Absent: respiratory distress, wheezes, rales, rhonchi, stridor Cardiovascular Exam: Present: regular rate, normal rhythm, normal heart sounds. Absent: systolic murmur, diastolic murmur, rubs, gallop, clicks GI/Abdominal exam: Present: soft, normal bowel sounds. Absent: distended, tenderness, guarding, rebound, rigid Rectal exam: Present: deferred External exam: Present: erythema (Erythema increased temperature to touch to the right lower extremity evidence of edema bilaterally.) Extremities exam: Present: normal inspection, full ROM, normal capillary refill. Absent: tenderness, pedal edema, joint swelling, calf tenderness Back exam: Present: normal inspection Neurological exam: Present: alert, oriented X3, CN II-XII intact Psychiatric exam: Present: normal mood, flat affect Skin exam: Present: warm, dry, intact. Absent: normal color, rash Course Vital Signs 06/05/18 21:40 Temperature 102 F H Pulse Rate 99 Respiratory 21 Rate Blood Pressure 157/79 O2 Sat by Pulse 99 Oximetry - Reevaluation(s) Reevaluation #1: 06/05/18 23:55 I did reevaluate patient several occasions she does seem more alert after IV fluids. I did discuss the findings with the patient her and her daughter. I did review old charting. Medical Decision Making - Lab Data Result diagrams: 06/05/18 21:42 06/05/18 21:42 Lab Results 06/05/18 06/05/18 06/05/18 Range/Units 21:39 21:42 21:42 WBC (3.8-10.6) k/uL RBC (3.80-5.40) m/uL Hgb (11.4-16.0) gm/dL Hct (34.0-46.0) % MCV (80.0-100.0) fL MCH (25.0-35.0) pg MCHC (31.0-37.0) g/dL RDW (11.5-15.5) % Plt Count (150-450) k/uL Neutrophils % % Lymphocytes % % Monocytes % % Eosinophils % % Basophils % % Neutrophils # (1.3-7.7) k/uL Lymphocytes # (1.0-4.8) k/uL Monocytes # (0-1.0) k/uL Eosinophils # (0-0.7) k/uL Basophils # (0-0.2) k/uL Hypochromasia Anisocytosis Sodium (137-145) mmol/L Potassium (3.5-5.1) mmol/L Chloride (98-107) mmol/L Carbon Dioxide (22-30) mmol/L Anion Gap mmol/L BUN (7-17) mg/dL Creatinine (0.52-1.04) mg/dL Est GFR (CKD-EPI)AfAm (>60 ml/min/1.73 sqM) Est GFR (CKD-EPI)NonAf (>60 ml/min/1.73 sqM) Glucose (74-99) mg/dL POC Glucose (mg/dL) 471 H (75-99) mg/dL POC Glu Windows Vmware Administrator ID [facility] Plasma Lactic Acid Flex (0.7-2.0) mmol/L Calcium (8.4-10.2) mg/dL Magnesium (1.6-2.3) mg/dL Total Bilirubin (0.2-1.3) mg/dL AST (14-36) U/L ALT (9-52) U/L Alkaline Phosphatase (38-126) U/L Ammonia <9 (<30) umol/L Total Creatine Kinase 159 H (30-135) U/L CK-MB (CK-2) 0.5 (0.0-2.4) ng/mL CK-MB (CK-2) Rel Index 0.3 Total Protein (6.3-8.2) g/dL Albumin (3.5-5.0) g/dL Lipase (23-300) U/L Urine Color Urine Appearance (Clear) Urine pH (5.0-8.0) Ur Specific Moose (1.001-1.035) Urine Protein (Negative) Urine Glucose (UA) (Negative) Urine Ketones (Negative) Urine Blood (Negative) Urine Nitrite (Negative) Urine Bilirubin (Negative) Urine Urobilinogen (<2.0) mg/dL Ur Leukocyte Esterase (Negative) Urine RBC (0-5) /hpf Urine WBC (0-5) /hpf Ur Squamous Epith Cells (0-4) /hpf Hyaline Casts (0-2) /lpf Granular Casts (0) /lpf Acetone, Qual (Negative) Influenza Type A RNA (Not Detectd) Influenza Type B (PCR) (Not Detectd) 06/05/18 06/05/18 06/05/18 Range/Units 21:42 21:42 21:42 WBC 18.0 H (3.8-10.6) k/uL RBC 4.03 (3.80-5.40) m/uL Hgb 11.4 D (11.4-16.0) gm/dL Hct 38.3 (34.0-46.0) % MCV 95.0 (80.0-100.0) fL MCH 28.3 (25.0-35.0) pg MCHC 29.7 L (31.0-37.0) g/dL RDW 17.0 H (11.5-15.5) % Plt Count 239 (150-450) k/uL Neutrophils % 93 % Lymphocytes % 4 % Monocytes % 2 % Eosinophils % 1 % Basophils % 0 % Neutrophils # 16.8 H (1.3-7.7) k/uL Lymphocytes # 0.7 L (1.0-4.8) k/uL Monocytes # 0.3 (0-1.0) k/uL Eosinophils # 0.1 (0-0.7) k/uL Basophils # 0.0 (0-0.2) k/uL Hypochromasia Marked Anisocytosis Slight Sodium 136 L (137-145) mmol/L Potassium 4.3 (3.5-5.1) mmol/L Chloride 101 (98-107) mmol/L Carbon Dioxide 20 L (22-30) mmol/L Anion Gap 15 mmol/L BUN 27 H (7-17) mg/dL Creatinine 1.45 H (0.52-1.04) mg/dL Est GFR (CKD-EPI)AfAm 44 (>60 ml/min/1.73 sqM) Est GFR (CKD-EPI)NonAf 38 (>60 ml/min/1.73 sqM) Glucose 502 H* (74-99) mg/dL POC Glucose (mg/dL) (75-99) mg/dL POC Glu Windows Vmware Administrator ID Plasma Lactic Acid Flex 3.6 H* (0.7-2.0) mmol/L Calcium 9.0 (8.4-10.2) mg/dL Magnesium 1.4 L (1.6-2.3) mg/dL Total Bilirubin 1.3 (0.2-1.3) mg/dL AST 16 (14-36) U/L ALT 15 (9-52) U/L Alkaline Phosphatase 88 (38-126) U/L Ammonia (<30) umol/L Total Creatine Kinase (30-135) U/L CK-MB (CK-2) (0.0-2.4) ng/mL CK-MB (CK-2) Rel Index Total Protein 8.0 (6.3-8.2) g/dL Albumin 3.9 (3.5-5.0) g/dL Lipase 39 (23-300) U/L Urine Color Urine Appearance (Clear) Urine pH (5.0-8.0) Ur Specific Moose (1.001-1.035) Urine Protein (Negative) Urine Glucose (UA) (Negative) Urine Ketones (Negative) Urine Blood (Negative) Urine Nitrite (Negative) Urine Bilirubin (Negative) Urine Urobilinogen (<2.0) mg/dL Ur Leukocyte Esterase (Negative) Urine RBC (0-5) /hpf Urine WBC (0-5) /hpf Ur Squamous Epith Cells (0-4) /hpf Hyaline Casts (0-2) /lpf Granular Casts (0) /lpf Acetone, Qual Negative (Negative) Influenza Type A RNA (Not Detectd) Influenza Type B (PCR) (Not Detectd) 06/05/18 06/05/18 Range/Units 22:55 23:30 WBC (3.8-10.6) k/uL RBC (3.80-5.40) m/uL Hgb (11.4-16.0) gm/dL Hct (34.0-46.0) % MCV (80.0-100.0) fL MCH (25.0-35.0) pg MCHC (31.0-37.0) g/dL RDW (11.5-15.5) % Plt Count (150-450) k/uL Neutrophils % % Lymphocytes % % Monocytes % % Eosinophils % % Basophils % % Neutrophils # (1.3-7.7) k/uL Lymphocytes # (1.0-4.8) k/uL Monocytes # (0-1.0) k/uL Eosinophils # (0-0.7) k/uL Basophils # (0-0.2) k/uL Hypochromasia Anisocytosis Sodium (137-145) mmol/L Potassium (3.5-5.1) mmol/L Chloride (98-107) mmol/L Carbon Dioxide (22-30) mmol/L Anion Gap mmol/L BUN (7-17) mg/dL Creatinine (0.52-1.04) mg/dL Est GFR (CKD-EPI)AfAm (>60 ml/min/1.73 sqM) Est GFR (CKD-EPI)NonAf (>60 ml/min/1.73 sqM) Glucose (74-99) mg/dL POC Glucose (mg/dL) (75-99) mg/dL POC Glu Windows Vmware Administrator ID Plasma Lactic Acid Flex (0.7-2.0) mmol/L Calcium (8.4-10.2) mg/dL Magnesium (1.6-2.3) mg/dL Total Bilirubin (0.2-1.3) mg/dL AST (14-36) U/L ALT (9-52) U/L Alkaline Phosphatase (38-126) U/L Ammonia (<30) umol/L Total Creatine Kinase (30-135) U/L CK-MB (CK-2) (0.0-2.4) ng/mL CK-MB (CK-2) Rel Index Total Protein (6.3-8.2) g/dL Albumin (3.5-5.0) g/dL Lipase (23-300) U/L Urine Color Yellow Urine Appearance Cloudy H (Clear) Urine pH 5.5 (5.0-8.0) Ur Specific Moose 1.025 (1.001-1.035) Urine Protein 2+ H (Negative) Urine Glucose (UA) 4+ H (Negative) Urine Ketones Trace H (Negative) Urine Blood Moderate H (Negative) Urine Nitrite Negative (Negative) Urine Bilirubin Negative (Negative) Urine Urobilinogen <2.0 (<2.0) mg/dL Ur Leukocyte Esterase Negative (Negative) Urine RBC 12 H (0-5) /hpf Urine WBC 6 H (0-5) /hpf Ur Squamous Epith Cells 1 (0-4) /hpf Hyaline Casts 304 H (0-2) /lpf Granular Casts 69 (0) /lpf Acetone, Qual (Negative) Influenza Type A RNA Not Detected (Not Detectd) Influenza Type B (PCR) Not Detected (Not Detectd) - EKG Data -: EKG Interpreted by Me EKG shows normal: sinus rhythm (Sinus rhythm at 99. A 150 QRS duration 86 QT since QTC 374/479 left exodeviation poor R-wave progression) - Radiology Data Radiology results: report reviewed (I did review the imaging and report no acute findings.), image reviewed Critical Care Time Critical Care Time: Yes Critical Care Time: 5 minutes of critical care time which includes initial presentation with history physical labs x-rays discussed with paramedics regarding findings discussed with family members regarding the findings review of old charting discussed with the admitting physician sheet documentation above and admission orders. Disposition Clinical Impression: Cellulitis of right leg, Dehydration, Febrile illness, acute, Altered mental status, Urinary tract infection, Lactic acidosis, Hyperglycemia Disposition: ADMITTED IP TO THIS HOSP Condition: Fair Referrals: Mere Rodriguez DO [Primary Care Provider] - 1-2 days
[2018-06-05 21:58] LABS: Anisocytosis Slight; Basophils % (A) 0 %; Eosinophils # (A) 0.1 k/uL (0-0.7); Eosinophils % (A) 1 %; HCT 38.3 % (34.0-46.0); Hypochromasia Marked; Lymphocytes # (A) 0.7 k/uL (1.0-4.8); Lymphocytes % (A) 4 %; MCH 28.3 pg (25.0-35.0); MCHC 29.7 g/dL (31.0-37.0); Mean Platelet Volume 7.4; Monocytes # (A) 0.3 k/uL (0-1.0); Monocytes % (A) 2 %; Neutrophils # (A) 16.8 k/uL (1.3-7.7); Neutrophils % (A) 93 %; Platelet Count 239 k/uL (150-450); RBC 4.03 m/uL (3.80-5.40)
[2018-06-05 22:09] LABS: ALT 15 U/L (9-52); AST 16 U/L (14-36); Albumin 3.9 g/dL (3.5-5.0); Alkaline Phosphatase 88 U/L (38-126); Anion Gap 15 mmol/L; Blood Urea Nitrogen 27 mg/dL (7-17); Carbon Dioxide 20 mmol/L (22-30); Chloride 101 mmol/L (98-107); Lipase 39 U/L (23-300); Magnesium 1.4 mg/dL (1.6-2.3); Potassium 4.3 mmol/L (3.5-5.1); Sodium 136 mmol/L (137-145); Total Bilirubin 1.3 mg/dL (0.2-1.3)
[2018-06-05 22:12] LABS: HGB 11.4 gm/dL (11.4-16.0)
[2018-06-05 22:19] LABS: Glucose,Whole Blood 471 mg/dL (75-99)
[2018-06-05 22:23] LABS: Glucose 502 mg/dL (74-99)
[2018-06-05] MEDS ORDERED: SODIUM CHLORIDE 0.9% 2,000 ML IV ONE (22:25)
[2018-06-05] MEDS ORDERED: SODIUM CHLORIDE 0.9% 1,000 ML IV STA (22:25)
[2018-06-05] MEDS ORDERED: cefTRIAXone IN SWFI 1,000 MG/10 ML SYRINGE IVP STA (22:26)
[2018-06-05 22:27] LABS: Creatine Kinase MB 0.5 ng/mL (0.0-2.4)
[2018-06-05] MEDS ORDERED: ACETAMINOPHEN TAB 325 MG TAB PO STA (22:43)
--- NOTE | 2018-06-05 22:47 | XR ---
EXAM: XR Chest, 2 Views CLINICAL HISTORY: cough TECHNIQUE: Frontal and lateral views of the chest. COMPARISON: 04/06/2018 FINDINGS: Lungs: Pulmonary vascular congestion. No consolidation. Pleural space: Unremarkable. No pneumothorax. Heart: Borderline sized cardiomediastinal silhouette. Mediastinum: See above. Bones/joints: No acute osseous abnormality. Tubes, lines and devices: Telemetry leads overlie the patient. IMPRESSION: Pulmonary vascular congestion.
--- NOTE | 2018-06-05 23:05 | CT ---
EXAM: CT Head Without Intravenous Contrast CLINICAL HISTORY: Pain TECHNIQUE: Axial computed tomography images of the head/brain without intravenous contrast. DLP is 1158.4 mGy-cm. This CT exam was performed using one or more of the following dose reduction techniques: automated exposure control, adjustment of the mA and/or kV according to patient size, and/or use of iterative reconstruction technique. COMPARISON: 04/06/2018 FINDINGS: Brain: No acute intracranial hemorrhage, mass, or significant mass effect. Nonspecific areas of hypoattenuation in the periventricular white matter likely represent the sequela of chronic small vessel ischemic disease. Ventricles: Ventricular and sulcal prominence commensurate with the patient's age. Bones/joints: Unremarkable. No acute fracture. Soft tissues: Unremarkable. Sinuses: Unremarkable. Mastoid air cells: Unremarkable. IMPRESSION: No acute intracranial abnormality.
[2018-06-05 23:44] LABS: Appearance,Urine Cloudy (Clear); Bilirubin,Urine Negative (Negative); Blood,Urine Moderate (Negative); Color,Urine Yellow; Glucose,Urine (UA) 4+ (Negative); Granular Casts,Urine 69 /lpf (0); Hyaline Casts,Urine 304 /lpf (0-2); Ketones,Urine Trace (Negative); Leukocyte Esterase,Urine Negative (Negative); Nitrite,Urine Negative (Negative); PH, Urine 5.5 (5.0-8.0); Protein,Urine 2+ (Negative); RBC,Urine 12 /hpf (0-5); Specific Gravity,Urine 1.025 (1.001-1.035); Squamous Epithelial Cell,Urine 1 /hpf (0-4); Urobilinogen,Urine <2.0 mg/dL (<2.0); WBC,Urine 6 /hpf (0-5)
[2018-06-05] MEDS ORDERED: INSULIN REGULAR 100 UNIT/ML VIAL IV ONE (23:58)
[2018-06-05] MEDS ORDERED: ONDANSETRON 4 MG/2 ML VIAL IVP PRN (23:59)
[2018-06-05] MEDS ORDERED: NALOXONE 0.4 MG/ML 1 ML VIAL IV PRN (23:59)
[2018-06-05] MEDS ORDERED: ACETAMINOPHEN TAB 325 MG TAB PO PRN (23:59)
[2018-06-06] MEDS ORDERED: HYDROmorphone 0.5 MG/0.5 ML SYRINGE IVP STA (00:02)
[2018-06-06 00:27] LABS: Glucose,Whole Blood 438 mg/dL (75-99)
[2018-06-06 00:37] LABS: Glucose,Whole Blood 416 mg/dL (75-99)
[2018-06-06] MEDS: SODIUM CHLORIDE 0.9% 1,000 ML IV SCH ×3 (01:43→20:56)
[2018-06-06] MEDS: HEPARIN SODIUM,PORCINE 5,000 UNIT/ML 1 ML VIAL SQ SCH ×3 (01:49→17:05)
[2018-06-06 02:49] LABS: Glucose,Whole Blood 321 mg/dL (75-99)
[2018-06-06] MEDS: HYDROmorphone 0.5 MG/0.5 ML SYRINGE IVP PRN ×2 (04:22→17:04)
[2018-06-06 07:32] LABS: Glucose,Whole Blood 336 mg/dL (75-99)
[2018-06-06] MEDS: DULoxetine HCL 60 MG CAPSULE.DR PO SCH ×2 (07:59→22:17)
[2018-06-06] MEDS: ASPIRIN 81 MG PO SCH (07:59)
[2018-06-06] MEDS: PREGABALIN 75 MG CAP PO SCH ×3 (07:59→22:17)
[2018-06-06] MEDS: ATORVASTATIN 40 MG TAB PO SCH (07:59)
[2018-06-06] MEDS: FERROUS SULFATE 325 MG TAB PO SCH (07:59)
[2018-06-06] MEDS: CLOPIDOGREL 75 MG TAB PO SCH (07:59)
[2018-06-06] MEDS: oxyCODONE-APAP 10-325MG 1 EACH TAB PO PRN ×3 (07:59→22:19)
[2018-06-06] MEDS: amLODIPine 10 MG TAB PO SCH (07:59)
[2018-06-06] MEDS: CARVEDILOL 12.5 MG TAB PO SCH ×2 (07:59→17:05)
[2018-06-06] MEDS: PANTOPRAZOLE 40 MG/10 ML VIAL IV SCH (08:00)
[2018-06-06] MEDS: TOPIRAMATE 25 MG TAB PO SCH ×2 (08:03→22:17)
[2018-06-06] MEDS: INSULIN ASPART (NovoLOG) 100 UNIT/ML VIAL SQ SCH ×2 (08:03→13:09)
[2018-06-06] MEDS: CALCITRIOL 0.25 MCG CAP PO SCH (08:06)
[2018-06-06 11:28] LABS: Glucose,Whole Blood 196 mg/dL (75-99)
[2018-06-06] MEDS ORDERED: VANCOMYCIN IV PER PHARMACY 1 EACH MISC MISCELLANE PRN (14:18)
--- NOTE | 2018-06-06 14:18 | P.HPIM ---
History of Present Illness Chief Complaint: Lethargy There is a 63-year-old female who was admitted in March 2018 for cellulitis. She comes back with above-mentioned complaint. Patient the time examination was alert but is looking a little lethargic and weak she said that she was brought over here because her sugars were high. According to the ER notes family called EMS because she was lethargic and she was generalized weak. Patient apparently was also having fevers at home and looked dry and dehydrated. Patient otherwise does not complain of any chest pain racing heart, no cough no shortness breath, no abdominal pain, no nausea and vomiting, no diarrhea constipation, no tingling numbness in the extremities, no itch no rash. Right lower extremity has a red swollen. ER course-patient's vitals were stable. Labwork was initial WAC 18,000 hemoglobin 11.4 platelets 239 sodium 136 potassium 4.3 bun 27 creatinine 1.45 glucose 502. Patient was given Rocephin and admitted to the hospitalist service a further evaluation and management. She was also given about 2 L of IV fluids bolus and was started 100 mL an hour of maintenance fluid. Review of Systems All systems: negative Past Medical History Past Medical History: CVA/TIA, Diabetes Mellitus, GERD/Reflux, Hypertension, Renal Disease, Rheumatoid Arthritis (RA), Sleep Apnea/CPAP/BIPAP Additional Past Medical History / Comment(s): "ckd stage lll", broken Lt foot 2011-no sx, stroke 2004 affected non dominant lt side . lt side weaker than rt", vertigo, neck pain, mini stroke nov 2016. no cpap used. Ulcer on right great toe History of Any Multi-Drug Resistant Organisms: None Reported Past Surgical History: Breast Surgery Additional Past Surgical History / Comment(s): breast biopsy, gastric sleeve 11/07/14, colonoscopy 04/14/14 Past Anesthesia/Blood Transfusion Reactions: Motion Sickness Past Psychological History: Depression Additional Psychological History / Comment(s): and lives with family home with her . 2 adult children. No tobacco or alcohol use. No experience. No international travel. Pet cats at home they are not new. Used to work in a care of handicapped persons Smoking Status: Never smoker Past Alcohol Use History: None Reported Past Drug Use History: None Reported - Past Family History Mother Family Medical History: Diabetes Mellitus Additional Family Medical History / Comment(s): heart attack, Brother of lung cancer 04/19/14 Father Family Medical History: Cancer Additional Family Medical History / Comment(s): lung cancer Brother(s) Family Medical History: Cancer Additional Family Medical History / Comment(s): LUNG Medications and Allergies Home Medications Medication Instructions Recorded Confirmed Type Calcitriol 0.5 mcg PO DAILY 09/30/13 06/05/18 History Clopidogrel Bisulfate [Plavix] 75 mg PO DAILY 09/30/13 06/05/18 History DULoxetine HCL [Cymbalta] 60 mg PO BID 09/30/13 06/05/18 History Ferrous Sulfate [Iron (65 MG 325 mg PO DAILY 07/06/16 06/05/18 History Elemental)] Topiramate [Topamax] 25 mg PO BID 07/06/16 06/05/18 History Aspirin 81 mg PO DAILY 01/06/17 06/05/18 History Atorvastatin [Lipitor] 40 mg PO DAILY 01/06/17 06/05/18 History Carvedilol [Coreg*] 12.5 mg PO BID 04/06/18 06/05/18 History Pregabalin [Lyrica] 75 mg PO TID #9 cap 04/12/18 06/05/18 Rx oxyCODONE-APAP 10-325MG [Percocet 1 tab PO Q6H PRN #12 tab 04/12/18 06/05/18 Rx 10-325 mg] Insulin Aspart [NovoLOG Flexpen] 10 units SQ AC-LUNCH 06/05/18 06/05/18 History Insulin Aspart [NovoLOG Flexpen] 15 units SQ AC-BRKFST 06/05/18 06/05/18 History Insulin Aspart [NovoLOG Flexpen] 15 units SQ AC-SUPPER 06/05/18 06/05/18 History Insulin Glargine [Lantus] 30 unit SQ HS 06/05/18 06/05/18 History Ondansetron HCl [Zofran] 4 mg PO Q8H PRN 06/05/18 06/05/18 History amLODIPine [Norvasc] 10 mg PO DAILY 06/05/18 06/05/18 History Allergies Allergy/AdvReac Type Severity Reaction Status Date / Time No Known Allergies Allergy Verified 06/05/18 22:21 Physical Exam Vitals: Vital Signs Temp Pulse Pulse Resp BP BP Pulse Ox 06/06/18 07:00 98.3 F 100 14 146/75 100 06/06/18 01:10 98.4 F 89 22 107/64 100 06/06/18 00:31 98.3 F 92 20 139/58 100 06/05/18 21:40 102 F H 99 21 157/79 99 Intake and Output 06/05/18 06/06/18 06/06/18 22:59 06:59 14:59 Intake Total 500 120 Balance 500 120 Intake: Intake, IV Titration 500 Amount Sodium Chloride 0.9% 1, 500 000 ml @ 100 mls/hr IV . Q10H EMILIANO Rx#:[id number] Oral 120 Other: Voiding Method Diaper # Voids 2 Weight 136.078 kg On exam, alert and oriented x3 but looks lethargic and weak HEENT: Conjunctivae normal. eyes normal. NECK: No JVD. No thyroid enlargement. No LNs CARDIOVASCULAR: S1, S2 heard RESPIRATION: Breath sounds diminished in the bases. No rhonchi or crackles. No bronchial breathing. ABDOMEN: Soft, nontender . No guarding. no masses palpable. No ascites, No hepatosplenomegaly.Bowel sounds heard. LEGS: has swelling in the bilateral lower extremity right more than left. The right lower extremity is red and erythematous more swollen compared to the left NERVOUS SYSTEM: Cranial N 2-12 grossly normal. Moves all 4 limbs. No focal deficits. No sensory deficit. No signs of cerebellar dysfucntion. Results CBC & Chem 7: 06/05/18 21:42 06/05/18 21:42 Labs: Abnormal Lab Results - Last 24 Hours (Table) 06/05/18 06/05/18 06/05/18 Range/Units 21:39 21:42 21:42 WBC 18.0 H (3.8-10.6) k/uL MCHC 29.7 L (31.0-37.0) g/dL RDW 17.0 H (11.5-15.5) % Neutrophils # 16.8 H (1.3-7.7) k/uL Lymphocytes # 0.7 L (1.0-4.8) k/uL Sodium (137-145) mmol/L Carbon Dioxide (22-30) mmol/L BUN (7-17) mg/dL Creatinine (0.52-1.04) mg/dL Glucose (74-99) mg/dL POC Glucose (mg/dL) 471 H (75-99) mg/dL Plasma Lactic Acid Flex (0.7-2.0) mmol/L Magnesium (1.6-2.3) mg/dL Total Creatine Kinase 159 H (30-135) U/L Urine Appearance (Clear) Urine Protein (Negative) Urine Glucose (UA) (Negative) Urine Ketones (Negative) Urine Blood (Negative) Urine RBC (0-5) /hpf Urine WBC (0-5) /hpf Hyaline Casts (0-2) /lpf 06/05/18 06/05/18 06/05/18 Range/Units 21:42 21:42 23:03 WBC (3.8-10.6) k/uL MCHC (31.0-37.0) g/dL RDW (11.5-15.5) % Neutrophils # (1.3-7.7) k/uL Lymphocytes # (1.0-4.8) k/uL Sodium 136 L (137-145) mmol/L Carbon Dioxide 20 L (22-30) mmol/L BUN 27 H (7-17) mg/dL Creatinine 1.45 H (0.52-1.04) mg/dL Glucose 502 H* (74-99) mg/dL POC Glucose (mg/dL) 416 H (75-99) mg/dL Plasma Lactic Acid Flex 3.6 H* (0.7-2.0) mmol/L Magnesium 1.4 L (1.6-2.3) mg/dL Total Creatine Kinase (30-135) U/L Urine Appearance (Clear) Urine Protein (Negative) Urine Glucose (UA) (Negative) Urine Ketones (Negative) Urine Blood (Negative) Urine RBC (0-5) /hpf Urine WBC (0-5) /hpf Hyaline Casts (0-2) /lpf 06/05/18 06/06/18 06/06/18 Range/Units 23:30 00:17 01:49 WBC (3.8-10.6) k/uL MCHC (31.0-37.0) g/dL RDW (11.5-15.5) % Neutrophils # (1.3-7.7) k/uL Lymphocytes # (1.0-4.8) k/uL Sodium (137-145) mmol/L Carbon Dioxide (22-30) mmol/L BUN (7-17) mg/dL Creatinine (0.52-1.04) mg/dL Glucose (74-99) mg/dL POC Glucose (mg/dL) 438 H (75-99) mg/dL Plasma Lactic Acid Flex 3.3 H* (0.7-2.0) mmol/L Magnesium (1.6-2.3) mg/dL Total Creatine Kinase (30-135) U/L Urine Appearance Cloudy H (Clear) Urine Protein 2+ H (Negative) Urine Glucose (UA) 4+ H (Negative) Urine Ketones Trace H (Negative) Urine Blood Moderate H (Negative) Urine RBC 12 H (0-5) /hpf Urine WBC 6 H (0-5) /hpf Hyaline Casts 304 H (0-2) /lpf 06/06/18 06/06/18 06/06/18 Range/Units 02:46 07:30 11:27 WBC (3.8-10.6) k/uL MCHC (31.0-37.0) g/dL RDW (11.5-15.5) % Neutrophils # (1.3-7.7) k/uL Lymphocytes # (1.0-4.8) k/uL Sodium (137-145) mmol/L Carbon Dioxide (22-30) mmol/L BUN (7-17) mg/dL Creatinine (0.52-1.04) mg/dL Glucose (74-99) mg/dL POC Glucose (mg/dL) 321 H 336 H 196 H (75-99) mg/dL Plasma Lactic Acid Flex (0.7-2.0) mmol/L Magnesium (1.6-2.3) mg/dL Total Creatine Kinase (30-135) U/L Urine Appearance (Clear) Urine Protein (Negative) Urine Glucose (UA) (Negative) Urine Ketones (Negative) Urine Blood (Negative) Urine RBC (0-5) /hpf Urine WBC (0-5) /hpf Hyaline Casts (0-2) /lpf Microbiology - Last 24 Hours (Table) 06/05/18 23:30 Urine Culture - Preliminary Urine,Catheterized Thrombosis Risk Factor Assmnt - Choose All That Apply Each Factor Represents 1 point: Obesity (BMI >25) Each Risk Factor Represents 2 Points: Age 61-74 years Thrombosis Risk Factor Assessment Total Risk Factor Score: 3 Thrombosis Risk Factor Assessment Level: Moderate Risk Assessment and Plan Assessment: - Sepsis - Right lower extremity cellulitis - AK I - Diabetes type 2 which is uncontrolled at this time - Hypertension - History of C KD3 - History of sleep apnea - History of GERD - History of CVA/TIA Plan - We'll admit the patient to [facility] with telemetry - We'll continue antibiotics - We'll consult infectious disease - We'll continue insulin - We'll continue home medications - DVT and GI prophylaxis - We'll order for lab work in the morning - Expected length of stay more than 2 midnights - Patient is full code Time with Patient: Greater than 30
[2018-06-06] MEDS ORDERED: VANCOMYCIN 2,000 MG in SODIUM CHLORIDE 0.9% 500 ML 500 ML IVPB ONE (15:00)
[2018-06-06 16:53] LABS: Glucose,Whole Blood 128 mg/dL (75-99)
[2018-06-06] MEDS ORDERED: INSULIN ASPART (NovoLOG) 100 UNIT/ML VIAL SQ SCH (17:30)
--- NOTE | 2018-06-06 18:58 | US ---
EXAMINATION TYPE: US venous doppler duplex LE RT DATE OF EXAM: 06/06/2018 6:44 PM COMPARISON: NONE CLINICAL HISTORY: leg swelling. right leg cellulitis with redness and swelling SIDE PERFORMED: right TECHNIQUE: The lower extremity deep venous system is examined utilizing real time linear array sonog diego with graded compression, doppler sonography and color-flow sonography. VESSELS IMAGED: External Iliac Vein (EIV) Common Femoral Vein Deep Femoral Vein Greater Saphenous Vein * Femoral Vein Popliteal Vein Small Saphenous Vein * Proximal Calf Veins (* superficial vessels) Right Leg: Appears negative for DVT, enlarged lymph nodes seen within groin images. IMPRESSION: No evidence of deep venous thrombosis in the right leg. There is enlarged inguinal lymph node that measures 18 x 9 mm.
[2018-06-06 20:25] LABS: Glucose,Whole Blood 162 mg/dL (75-99)
[2018-06-06] MEDS: INSULIN DETEMIR (LEVEMIR) 100 UNIT/ML SYR SQ SCH (22:17)
--- NOTE | 2018-06-06 23:53 | P.CONS ---
History of Present Illness - Reason for Consult Consult date: 06/06/18 Sepsis syndrome and right lower extremity cellulitis Requesting physician: Nayan E Sheet - Chief Complaint Fever and mental status changes x 1 day - History of Present Illness Patient is a 63-year-old female who was brought into the ER at [facility] for evaluation of mental status changes and weakness pathology and right leg swelling and redness that apparently has been going on for a day before the patient was brought into the hospital, the patient noticed to have more swelling and redness to her right leg in addition to erythema that has been spreading to the medial thigh area the patient has been complaining of dull aching pain to the right leg intensity about 4-5 out of 10 and no radiation currently with no skin breakdown or any drainage the patient denies having any chest pain or shortness of breath or cough and no abdominal pain no diarrhea and no significant burning or frequency of urine on arrival to the ER the patient did have a fever of 102F patient was tachycardic did have elevated white count of 18,000 patient did have a UA which did show some hematuria but no leukocyte esterase patient has been diagnosed with right lower extremity cellulitis and UTI the patient was started on vancomycin and Rocephin and infectious disease was consulted for further recommendation regarding antibiotic therapy Review of Systems CONSTITUTIONAL: Positive for weakness. Fever EYES: No complaint. ENT:No complaint. RESPIRATORY: No complaint. CARDIOVASCULAR: No complaint. GENITOURINARY: No complaint. GASTROINTESTINAL: No complaint. MUSCULOSKELETAL: No complaint. INTEGUMENTARY: As per history of present illness. PSYCHOLOGICAL: No complaint. ENDOCRINE: No complaint. NEUROLOGIC: As per history of present illness. 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 lt side weaker than rt", vertigo, neck pain, mini stroke nov 2016. no cpap used. Ulcer on right great toe History of Any Multi-Drug Resistant Organisms: None Reported Past Surgical History: Breast Surgery Additional Past Surgical History / Comment(s): breast biopsy, gastric sleeve 11/07/14, colonoscopy 04/14/14 Past Anesthesia/Blood Transfusion Reactions: Motion Sickness Past Psychological History: Depression Additional Psychological History / Comment(s): and lives with family home with her . 2 adult children. No tobacco or alcohol use. No milita ry experience. No international travel. Pet cats at home they are not new. Used to work in a care of handicapped persons Smoking Status: Never smoker Past Alcohol Use History: None Reported Past Drug Use History: None Reported - Past Family History Mother Family Medical History: Diabetes Mellitus Additional Family Medical History / Comment(s): heart attack, Brother of lung cancer 04/19/14 Father Family Medical History: Cancer Additional Family Medical History / Comment(s): lung cancer Brother(s) Family Medical History: Cancer Additional Family Medical History / Comment(s): LUNG Medications and Allergies Home Medications Medication Instructions Recorded Confirmed Type Calcitriol 0.5 mcg PO DAILY 09/30/13 06/05/18 History Clopidogrel Bisulfate [Plavix] 75 mg PO DAILY 09/30/13 06/05/18 History DULoxetine HCL [Cymbalta] 60 mg PO BID 09/30/13 06/05/18 History Ferrous Sulfate [Iron (65 MG 325 mg PO DAILY 07/06/16 06/05/18 History Elemental)] Topiramate [Topamax] 25 mg PO BID 07/06/16 06/05/18 History Aspirin 81 mg PO DAILY 01/06/17 06/05/18 History Atorvastatin [Lipitor] 40 mg PO DAILY 01/06/17 06/05/18 History Carvedilol [Coreg*] 12.5 mg PO BID 04/06/18 06/05/18 History Pregabalin [Lyrica] 75 mg PO TID #9 cap 04/12/18 06/05/18 Rx oxyCODONE-APAP 10-325MG [Percocet 1 tab PO Q6H PRN #12 tab 04/12/18 06/05/18 Rx 10-325 mg] Insulin Aspart [NovoLOG Flexpen] 10 units SQ AC-LUNCH 06/05/18 06/05/18 History Insulin Aspart [NovoLOG Flexpen] 15 units SQ AC-BRKFST 06/05/18 06/05/18 History Insulin Aspart [NovoLOG Flexpen] 15 units SQ AC-SUPPER 06/05/18 06/05/18 History Insulin Glargine [Lantus] 30 unit SQ HS 06/05/18 06/05/18 History Ondansetron HCl [Zofran] 4 mg PO Q8H PRN 06/05/18 06/05/18 History amLODIPine [Norvasc] 10 mg PO DAILY 06/05/18 06/05/18 History Allergies Allergy/AdvReac Type Severity Reaction Status Date / Time No Known Allergies Allergy Verified 06/05/18 22:21 Physical Exam Vitals: Vital Signs Temp Pulse Pulse Resp BP BP Pulse Ox 06/06/18 15:00 98.2 F 73 16 110/65 99 06/06/18 07:00 98.3 F 100 14 146/75 100 06/06/18 01:10 98.4 F 89 22 107/64 100 06/06/18 00:31 98.3 F 92 20 139/58 100 06/05/18 21:40 102 F H 99 21 157/79 99 Intake and Output 06/06/18 06/06/18 06/06/18 06:59 14:59 22:59 Intake Total 500 120 Balance 500 120 Intake: Intake, IV Titration 500 Amount Sodium Chloride 0.9% 1, 500 000 ml @ 100 mls/hr IV . Q10H [facility] Rx#:[id number] Oral 120 Other: Voiding Method Diaper # Voids 2 2 GENERAL DESCRIPTION: Middle-aged female lying in bed, no distress. No tachypnea or accessory muscle of respiration use. HEENT: Shows Pallor , no scleral icterus. Oral mucous membrane is dry. No pharyngeal erythema or thrush NECK: Trachea central, no thyromegaly. LUNGS: Unlabored breathing. Clear to auscultation anteriorly. No wheeze or crackle. HEART: S1, S2, regular rate and rhythm. No loud murmur ABDOMEN: Soft, no tenderness , guarding or rigidity, no organomegaly EXTREMITIES: Right leg with diffuse swelling and redness is extending to the medial thigh area warm to touch no skin breakdown or drainage. SKIN: No rash, no masses palpable. NEUROLOGICAL: The patient is awake, alert, oriented x3, mood and affect normal. Results CBC & Chem 7: 06/05/18 21:42 06/05/18 21:42 Labs: Abnormal Lab Results - Last 24 Hours (Table) 06/05/18 06/05/18 06/05/18 Range/Units 21:39 21:42 21:42 WBC 18.0 H (3.8-10.6) k/uL MCHC 29.7 L (31.0-37.0) g/dL RDW 17.0 H (11.5-15.5) % Neutrophils # 16.8 H (1.3-7.7) k/uL Lymphocytes # 0.7 L (1.0-4.8) k/uL Sodium (137-145) mmol/L Carbon Dioxide (22-30) mmol/L BUN (7-17) mg/dL Creatinine (0.52-1.04) mg/dL Glucose (74-99) mg/dL POC Glucose (mg/dL) 471 H (75-99) mg/dL Plasma Lactic Acid Flex (0.7-2.0) mmol/L Magnesium (1.6-2.3) mg/dL Total Creatine Kinase 159 H (30-135) U/L Urine Appearance (Clear) Urine Protein (Negative) Urine Glucose (UA) (Negative) Urine Ketones (Negative) Urine Blood (Negative) Urine RBC (0-5) /hpf Urine WBC (0-5) /hpf Hyaline Casts (0-2) /lpf 06/05/18 06/05/18 06/05/18 Range/Units 21:42 21:42 23:03 WBC (3.8-10.6) k/uL MCHC (31.0-37.0) g/dL RDW (11.5-15.5) % Neutrophils # (1.3-7.7) k/uL Lymphocytes # (1.0-4.8) k/uL Sodium 136 L (137-145) mmol/L Carbon Dioxide 20 L (22-30) mmol/L BUN 27 H (7-17) mg/dL Creatinine 1.45 H (0.52-1.04) mg/dL Glucose 502 H* (74-99) mg/dL POC Glucose (mg/dL) 416 H (75-99) mg/dL Plasma Lactic Acid Flex 3.6 H* (0.7-2.0) mmol/L Magnesium 1.4 L (1.6-2.3) mg/dL Total Creatine Kinase (30-135) U/L Urine Appearance (Clear) Urine Protein (Negative) Urine Glucose (UA) (Negative) Urine Ketones (Negative) Urine Blood (Negative) Urine RBC (0-5) /hpf Urine WBC (0-5) /hpf Hyaline Casts (0-2) /[facility] 06/05/18 06/06/18 06/06/18 Range/Units 23:30 00:17 01:49 WBC (3.8-10.6) k/uL MCHC (31.0-37.0) g/dL RDW (11.5-15.5) % Neutrophils # (1.3-7.7) k/uL Lymphocytes # (1.0-4.8) k/uL Sodium (137-145) mmol/L Carbon Dioxide (22-30) mmol/L BUN (7-17) mg/dL Creatinine (0.52-1.04) mg/dL Glucose (74-99) mg/dL POC Glucose (mg/dL) 438 H (75-99) mg/dL Plasma Lactic Acid Flex 3.3 H* (0.7-2.0) mmol/L Magnesium (1.6-2.3) mg/dL Total Creatine Kinase (30-135) U/L Urine Appearance Cloudy H (Clear) Urine Protein 2+ H (Negative) Urine Glucose (UA) 4+ H (Negative) Urine Ketones Trace H (Negative) Urine Blood Moderate H (Negative) Urine RBC 12 H (0-5) /hpf Urine WBC 6 H (0-5) /hpf Hyaline Casts 304 H (0-2) /[facility] 06/06/18 06/06/18 06/06/18 Range/Units 02:46 07:30 11:27 WBC (3.8-10.6) k/uL MCHC (31.0-37.0) g/dL RDW (11.5-15.5) % Neutrophils # (1.3-7.7) k/uL Lymphocytes # (1.0-4.8) k/uL Sodium (137-145) mmol/L Carbon Dioxide (22-30) mmol/L BUN (7-17) mg/dL Creatinine (0.52-1.04) mg/dL Glucose (74-99) mg/dL POC Glucose (mg/dL) 321 H 336 H 196 H (75-99) mg/dL Plasma Lactic Acid Flex (0.7-2.0) mmol/L Magnesium (1.6-2.3) mg/dL Total Creatine Kinase (30-135) U/L Urine Appearance (Clear) Urine Protein (Negative) Urine Glucose (UA) (Negative) Urine Ketones (Negative) Urine Blood (Negative) Urine RBC (0-5) /hpf Urine WBC (0-5) /hpf Hyaline Casts (0-2) /lpf Microbiology - Last 24 Hours (Table) 06/05/18 23:30 Urine Culture - Preliminary Urine,Catheterized Assessment and Plan Assessment: 1-patient admitted hospital with sepsis in this patient who did have a fever of 102F, tachycardia and elevated white count source is likely right lower eczema cellulitis with diffuse swelling redness likely streptococcal disease, clinically doubt MRSA or gram-negative infection 2-no significant urinary symptoms or pyuria clinically doubt urinary tract infection (1) Cellulitis of right leg Current Visit: Yes Status: Acute Code(s): L03.115 - CELLULITIS OF RIGHT LOWER LIMB SNOMED Code(s): 192021866 (2) Sepsis Current Visit: No Status: Acute Code(s): A41.9 - SEPSIS, UNSPECIFIED ORGANISM SNOMED Code(s): 91079398 Plan: 1-discontinue the vancomycin and Rocephin 2-juan the area of the redness right leg 3-start the patient to cefazolin 3 g every 8 and clindamycin 900 every 8 hour 4-check ultrasound of the right leg and if negative for DVT to apply Sina wrap from just above the toe to below the knee We will follow-up on clinical condition and cultures to further adjust medication if needed Thank you for this consultation will follow this patient along with you
[2018-06-07] MEDS: HEPARIN SODIUM,PORCINE 5,000 UNIT/ML 1 ML VIAL SQ SCH ×4 (00:43→23:06)
[2018-06-07] MEDS: HYDROmorphone 0.5 MG/0.5 ML SYRINGE IVP PRN (00:45)
[2018-06-07] MEDS: ceFAZolin 3 GM in SODIUM CHLORIDE 0.9% 100 ML IVPB SCH ×4 (00:45→23:07)
[2018-06-07] MEDS: CLINDAMYCIN 900 MG in DEXTROSE 5% IN WATER 50 ML IVPB SCH ×8 (01:40→23:09)
[2018-06-07] MEDS: SODIUM CHLORIDE 0.9% 1,000 ML IV SCH (05:44)
[2018-06-07] MEDS ORDERED: VANCOMYCIN 2,000 MG in SODIUM CHLORIDE 0.9% 500 ML 500 ML IVPB SCH (06:00)
[2018-06-07] MEDS: INSULIN ASPART (NovoLOG) 100 UNIT/ML VIAL SQ SCH ×3 (07:32→17:37)
[2018-06-07] MEDS: PANTOPRAZOLE 40 MG/10 ML VIAL IV SCH (07:33)
[2018-06-07] MEDS: ATORVASTATIN 40 MG TAB PO SCH (07:34)
[2018-06-07] MEDS: FERROUS SULFATE 325 MG TAB PO SCH (07:35)
[2018-06-07] MEDS: PREGABALIN 75 MG CAP PO SCH ×3 (07:35→20:51)
[2018-06-07] MEDS: CARVEDILOL 12.5 MG TAB PO SCH ×2 (07:35→17:43)
[2018-06-07] MEDS: CLOPIDOGREL 75 MG TAB PO SCH (07:35)
[2018-06-07] MEDS: ASPIRIN 81 MG PO SCH (07:35)
[2018-06-07] MEDS: amLODIPine 10 MG TAB PO SCH (07:35)
[2018-06-07] MEDS: DULoxetine HCL 60 MG CAPSULE.DR PO SCH ×2 (07:35→20:51)
[2018-06-07] MEDS: CALCITRIOL 0.25 MCG CAP PO SCH (07:36)
[2018-06-07] MEDS: TOPIRAMATE 25 MG TAB PO SCH ×2 (07:36→20:50)
[2018-06-07 07:48] LABS: Glucose,Whole Blood 146 mg/dL (75-99)
[2018-06-07 07:58] LABS: Anisocytosis Slight; HCT 28.3 % (34.0-46.0); Hypochromasia Marked; MCH 28.7 pg (25.0-35.0); MCHC 30.4 g/dL (31.0-37.0); MCV 94.4 fL (80.0-100.0); Mean Platelet Volume 8.1; Platelet Count 155 k/uL (150-450); RDW 16.2 % (11.5-15.5); WBC 7.2 k/uL (3.8-10.6)
[2018-06-07 08:15] LABS: Calcium 7.8 mg/dL (8.4-10.2); Potassium 3.7 mmol/L (3.5-5.1)
[2018-06-07 08:17] LABS: HGB 8.6 gm/dL (11.4-16.0)
[2018-06-07] MEDS: oxyCODONE-APAP 10-325MG 1 EACH TAB PO PRN ×2 (09:20→17:43)
[2018-06-07 11:56] LABS: Glucose,Whole Blood 59 mg/dL (75-99)
[2018-06-07 12:28] LABS: Glucose,Whole Blood 58 mg/dL (75-99)
[2018-06-07 12:28] LABS: Glucose,Whole Blood 100 mg/dL (75-99)
[2018-06-07] MEDS ORDERED: POLYETHYLENE GLYCOL 3350 17 GM POWD.PACK PO PRN (13:08)
[2018-06-07] MEDS: SENNOSIDES-DOCUSATE SODIUM 1 EACH TAB PO SCH ×2 (15:11→20:51)
--- NOTE | 2018-06-07 15:34 | P.PN ---
Subjective 63-year-old female with history of colitis in the past multiple episodes came in with redness of the right leg and found as the lightest again extending up to the midthigh area. Patient is presently on ceftezole and will continue with antibiotic monitor. Blood sugars were low down titrated the insulin. Constitutional: Denied any fatigue denied any fever. Cardio vascular: denied any chest pain, palpitations Gastrointestinal denied any nausea vomiting Pulmonary: Denied any shortness of breath cough Neurologic denied any new focal deficits All inpatient medications were reviewed and appropriate changes in these medications as dictated in the interval history and assessment and plan. Objective - Vital Signs Vital signs: Vital Signs Temp 97.8 F 06/07/18 07:00 Pulse 72 06/07/18 08:00 Resp 16 06/07/18 08:00 BP 113/69 06/07/18 07:00 Pulse Ox 96 06/07/18 07:00 Intake & Output 06/06/18 06/07/18 06/07/18 18:59 06:59 18:59 Intake Total 360 Balance 360 Intake: Oral 360 Other: Voiding Method Incontinent Incontinent Incontinent # Voids 2 1 2 - Exam PHYSICAL EXAMINATION: GENERAL: The patient is alert and oriented x3, not in any acute distress. Well developed, well nourished. obese HEENT: Pupils are round and equally reacting to light. EOMI. No scleral icterus. No conjunctival pallor. Normocephalic, atraumatic. No pharyngeal erythema. No thyromegaly. CARDIOVASCULAR: S1 and S2 present. No murmurs, rubs, or gallops. PULMONARY: Chest is clear to auscultation, no wheezing or crackles. ABDOMEN: Soft, nontender, nondistended, normoactive bowel sounds. No palpable organomegaly. MUSCULOSKELETAL: No joint swelling or deformity. EXTREMITIES: No cyanosis, clubbing, bilateral pedal edema most significant on the right side chronic venous stasis dermatosis, chronic venous stasis with the significantly swollen right leg circumferential redness extending up to the midthigh area. There is probably some local is of temperature NEUROLOGICAL: Gross neurological examination did not reveal any focal deficits. SKIN: No rashes. - Labs CBC & Chem 7: 06/07/18 07:15 06/07/18 07:15 Labs: Abnormal Lab Results - Last 24 Hours (Table) 06/06/18 06/06/1819 Range/Units 16:52 20:23 07:15 RBC 3.00 L (3.80-5.40) m/uL Hgb 8.6 L D (11.4-16.0) gm/dL Hct 28.3 L (34.0-46.0) % MCHC 30.4 L (31.0-37.0) g/dL RDW 16.2 H (11.5-15.5) % Chloride (98-107) mmol/L BUN (7-17) mg/dL Creatinine (0.52-1.04) mg/dL Glucose (74-99) mg/dL POC Glucose (mg/dL) 128 H 162 H (75-99) mg/dL Calcium (8.4-10.2) mg/dL 06/07/18 06/07/18 06/07/18 Range/Units 07:15 07:20 11:48 RBC (3.80-5.40) m/uL Hgb (11.4-16.0) gm/dL Hct (34.0-46.0) % MCHC (31.0-37.0) g/dL RDW (11.5-15.5) % Chloride 108 H (98-107) mmol/L BUN 34 H (7-17) mg/dL Creatinine 1.42 H (0.52-1.04) mg/dL Glucose 105 H (74-99) mg/dL POC Glucose (mg/dL) 146 H 59 L (75-99) mg/dL Calcium 7.8 L (8.4-10.2) mg/dL 06/07/18 06/07/18 Range/Units 12:07 12:26 RBC (3.80-5.40) m/uL Hgb (11.4-16.0) gm/dL Hct (34.0-46.0) % MCHC (31.0-37.0) g/dL RDW (11.5-15.5) % Chloride (98-107) mmol/L BUN (7-17) mg/dL Creatinine (0.52-1.04) mg/dL Glucose (74-99) mg/dL POC Glucose (mg/dL) 58 L 100 H (75-99) mg/dL Calcium (8.4-10.2) mg/dL Microbiology - Last 24 Hours (Table) 06/05/18 23:30 Urine Culture - Final Urine,Catheterized 06/05/18 21:42 Blood Culture - Preliminary Blood No Growth after 24 hours Assessment and Plan Plan: sepsis secondary to cellulitis of the right lower extremity: Continue with ceftezole and DVT was ruled out. -Type 2 diabetes mellitus well controlled blood sugars patient is actually hypoglycemic here down titrated to insulin Heparin -acute renal failure prerenal azotemia continue with IV fluids, repeat basic metabolic profile tomorrow -hypertension -Gastroesophageal reflux disease -Sleep apnea and obesity History of CVA or TIA in the past Patient will need pharmacologic GI as well as DVT prophylaxis
[2018-06-07 16:49] LABS: Glucose,Whole Blood 96 mg/dL (75-99)
[2018-06-07 19:59] LABS: Hemoglobin A1C 7.7 % (4.0-6.0)
[2018-06-07 20:50] LABS: Glucose,Whole Blood 168 mg/dL (75-99)
[2018-06-07] MEDS ORDERED: METOPROLOL TARTRATE 50 MG TAB PO SCH (21:00)
[2018-06-07] MEDS: INSULIN DETEMIR (LEVEMIR) 100 UNIT/ML SYR SQ SCH (21:45)
--- NOTE | 2018-06-07 23:41 | PN ---
PROGRESS NOTE DATE OF SERVICE: 06/07/2018 REASON FOR FOLLOW UP: Right lower extremity cellulitis with . INTERVAL HISTORY: The patient is currently afebrile. Patient has been breathing comfortably. Denies any chest pain or any cough. No abdominal pain or worsening pain to the right leg area. Overall decreased from the yesterday. PHYSICAL EXAMINATION: Blood pressure is 111/56 with a pulse of 73, temperature 98. She is 98% on 2 L nasal cannula. General description is a middle aged female lying in bed in no distress. Respiratory system: Unlabored breathing. Clear to auscultation anteriorly. Heart S1, S2. Regular rate and rhythm. Abdomen soft, no tenderness. Right leg swelling and redness, decreased. . LABS: Hemoglobin 8.8, white count 7.2, BUN of 34, creatinine 1.42. Blood culture has been negative so far. Right leg Doppler was negative for DVT. DIAGNOSTIC IMPRESSION AND PLAN: Patient admitted to the hospital with sepsis, source of acute right lower extremity cellulitis in this patient who did have diffuse swelling and redness likely streptococcal disease. The patient is currently covered with Cefazolin, plan to continue for now, skin and an Sina wrap to keep the swelling down. Continue supportive care. MMODL / IJN: [id number] /
[2018-06-08] MEDS: oxyCODONE-APAP 10-325MG 1 EACH TAB PO PRN ×3 (02:52→23:25)
[2018-06-08] MEDS: HYDROmorphone 0.5 MG/0.5 ML SYRINGE IVP PRN (05:30)
[2018-06-08 07:24] LABS: Glucose,Whole Blood 127 mg/dL (75-99)
[2018-06-08 07:59] LABS: HCT 29.2 % (34.0-46.0); HGB 8.9 gm/dL (11.4-16.0); Hypochromasia Marked; MCH 28.7 pg (25.0-35.0); MCHC 30.6 g/dL (31.0-37.0); MCV 93.9 fL (80.0-100.0); Platelet Count 172 k/uL (150-450)
[2018-06-08] MEDS: ceFAZolin 3 GM in SODIUM CHLORIDE 0.9% 100 ML IVPB SCH ×3 (08:04→23:22)
[2018-06-08] MEDS: INSULIN ASPART (NovoLOG) 100 UNIT/ML VIAL SQ SCH ×3 (08:05→18:20)
[2018-06-08] MEDS: HEPARIN SODIUM,PORCINE 5,000 UNIT/ML 1 ML VIAL SQ SCH ×2 (08:05→15:12)
[2018-06-08] MEDS: CARVEDILOL 12.5 MG TAB PO SCH ×2 (08:06→18:20)
[2018-06-08] MEDS: CALCITRIOL 0.25 MCG CAP PO SCH (08:06)
[2018-06-08] MEDS: ASPIRIN 81 MG PO SCH (08:06)
[2018-06-08] MEDS: amLODIPine 5 MG TAB PO SCH (08:06)
[2018-06-08] MEDS: PREGABALIN 75 MG CAP PO SCH ×3 (08:06→20:25)
[2018-06-08] MEDS: ATORVASTATIN 40 MG TAB PO SCH (08:06)
[2018-06-08] MEDS: DULoxetine HCL 60 MG CAPSULE.DR PO SCH ×2 (08:06→20:25)
[2018-06-08] MEDS: CLOPIDOGREL 75 MG TAB PO SCH (08:06)
[2018-06-08] MEDS: SENNOSIDES-DOCUSATE SODIUM 1 EACH TAB PO SCH ×2 (08:06→20:25)
[2018-06-08] MEDS: PANTOPRAZOLE 40 MG TABLET PO SCH (08:06)
[2018-06-08] MEDS: FERROUS SULFATE 325 MG TAB PO SCH (08:06)
[2018-06-08] MEDS: TOPIRAMATE 25 MG TAB PO SCH ×2 (08:07→20:25)
[2018-06-08 08:20] LABS: Calcium 7.9 mg/dL (8.4-10.2); Potassium 3.9 mmol/L (3.5-5.1)
[2018-06-08] MEDS: CLINDAMYCIN 900 MG in DEXTROSE 5% IN WATER 50 ML IVPB SCH ×4 (09:01→15:58)
[2018-06-08 11:49] LABS: Glucose,Whole Blood 103 mg/dL (75-99)
--- NOTE | 2018-06-08 13:53 | P.PN ---
Subjective 63-year-old female with history of colitis in the past multiple episodes came in with redness of the right leg and found as the lightest again extending up to the midthigh area. Patient is presently on ceftezole and will continue with antibiotic monitor. Blood sugars were low down titrated the insulin. 06/08/2018 Discussed with infectious disease can you with present antibiotics patient's fever and leukocytosis improved although has redness has gone up. Constitutional: Denied any fatigue denied any fever. Cardio vascular: denied any chest pain, palpitations Gastrointestinal denied any nausea vomiting Pulmonary: Denied any shortness of breath cough Neurologic denied any new focal deficits All inpatient medications were reviewed and appropriate changes in these medications as dictated in the interval history and assessment and plan. Objective - Vital Signs Vital signs: Vital Signs Temp 97.9 F 06/08/18 07:50 Pulse 75 06/08/18 07:50 Resp 16 06/08/18 08:00 BP 143/74 06/08/18 07:50 Pulse Ox 95 06/08/18 07:50 Intake & Output 06/07/18 06/08/18 06/08/18 18:59 06:59 18:59 Intake Total 200 480 Balance 200 480 Intake: Oral 200 480 Other: Voiding Method Incontinent Incontinent # Voids 2 1 1 # Bowel Movements 0 - Exam PHYSICAL EXAMINATION: GENERAL: The patient is alert and oriented x3, not in any acute distress. Well developed, well nourished. obese HEENT: Pupils are round and equally reacting to light. EOMI. No scleral icterus. No conjunctival pallor. Normocephalic, atraumatic. No pharyngeal erythema. No thyromegaly. CARDIOVASCULAR: S1 and S2 present. No murmurs, rubs, or gallops. PULMONARY: Chest is clear to auscultation, no wheezing or crackles. ABDOMEN: Soft, nontender, nondistended, normoactive bowel sounds. No palpable organomegaly. MUSCULOSKELETAL: No joint swelling or deformity. EXTREMITIES: No cyanosis, clubbing, bilateral pedal edema most significant on the right side chronic venous stasis dermatosis, chronic venous stasis with the significantly swollen right leg circumferential redness extending up to the midthigh area and is little bit more proximal today. There is probably some local is of temperature NEUROLOGICAL: Gross neurological examination did not reveal any focal deficits. SKIN: No rashes. - Labs CBC & Chem 7: 06/08/18 07:29 06/08/18 07:29 Labs: Abnormal Lab Results - Last 24 Hours (Table) 06/07/18 06/07/18 06/08/18 Range/Units 08:18 20:49 07:12 RBC (3.80-5.40) m/uL Hgb (11.4-16.0) gm/dL Hct (34.0-46.0) % MCHC (31.0-37.0) g/dL RDW (11.5-15.5) % Chloride (98-107) mmol/L BUN (7-17) mg/dL Creatinine (0.52-1.04) mg/dL Glucose (74-99) mg/dL POC Glucose (mg/dL) 168 H 127 H (75-99) mg/dL Hemoglobin A1c 7.7 H (4.0-6.0) % Calcium (8.4-10.2) mg/dL 06/08/18 06/08/18 06/08/18 Range/Units 07:29 07:29 11:41 RBC 3.10 L (3.80-5.40) m/uL Hgb 8.9 L (11.4-16.0) gm/dL Hct 29.2 L (34.0-46.0) % MCHC 30.6 L (31.0-37.0) g/dL RDW 16.0 H (11.5-15.5) % Chloride 109 H (98-107) mmol/L BUN 32 H (7-17) mg/dL Creatinine 1.35 H (0.52-1.04) mg/dL Glucose 117 H (74-99) mg/dL POC Glucose (mg/dL) 103 H (75-99) mg/dL Hemoglobin A1c (4.0-6.0) % Calcium 7.9 L (8.4-10.2) mg/dL Microbiology - Last 24 Hours (Table) 06/05/18 21:42 Blood Culture - Preliminary Blood No Growth after 48 hours 06/05/18 23:30 Urine Culture - Final Urine,Catheterized Assessment and Plan Plan: sepsis secondary to cellulitis of the right lower extremity: Continue with ceftezole and DVT was ruled out. -Type 2 diabetes mellitus well controlled blood sugars patient is actually hypoglycemic here down titrated to insulin Heparin -acute renal failure prerenal azotemia continue with IV fluids, repeat basic metabolic profile tomorrow -hypertension -Gastroesophageal reflux disease -Sleep apnea and obesity History of CVA or TIA in the past Patient will need pharmacologic GI as well as DVT prophylaxis
[2018-06-08 17:09] LABS: Glucose,Whole Blood 122 mg/dL (75-99)
[2018-06-08 20:18] LABS: Glucose,Whole Blood 89 mg/dL (75-99)
--- NOTE | 2018-06-08 23:24 | PN ---
PROGRESS NOTE DATE OF SERVICE: 06/08/2018. REASON FOR FOLLOWUP: Right lower extremity cellulitis. INTERVAL HISTORY: The patient is currently afebrile. Patient has been breathing comfortably. The right leg swelling and redness is decreased. No drainage. PHYSICAL EXAMINATION: Blood pressure is 122/77, with a pulse of 55, temperature 97.9. She is 93% on room air. GENERAL DESCRIPTION: A middle-aged female lying in bed in no distress. RESPIRATORY SYSTEM: Unlabored breathing. Clear to auscultation anteriorly. HEART: S1, S2. Regular rate and rhythm. ABDOMEN: Soft. EXTREMITIES: Right leg swelling persists. Redness has decreased from the line and is less intense. No blister formation, only drainage. LABS: Hemoglobin 8.1, white count 4.0, BUN of 32, creatinine 1.3. Blood cultures have been negative. DIAGNOSTIC IMPRESSION AND PLAN: Patient with acute right lower extremity cellulitis. The patient did have diffuse swelling and redness, likely streptococcal. The patient is currently covered with cefepime and clinda which we will continue for now. We will monitor clinical course closely and continue with supportive care. MMODL / IJN: [id number] /
[2018-06-08 23:31] LABS: Glucose,Whole Blood 95 mg/dL (75-99)
[2018-06-08] MEDS: INSULIN DETEMIR (LEVEMIR) 100 UNIT/ML SYR SQ SCH (23:37)
[2018-06-09] MEDS: HEPARIN SODIUM,PORCINE 5,000 UNIT/ML 1 ML VIAL SQ SCH ×4 (00:28→23:49)
[2018-06-09] MEDS: CLINDAMYCIN 900 MG in DEXTROSE 5% IN WATER 50 ML IVPB SCH ×4 (00:28→08:31)
[2018-06-09] MEDS: oxyCODONE-APAP 10-325MG 1 EACH TAB PO PRN ×3 (05:38→20:34)
[2018-06-09 06:59] LABS: Glucose,Whole Blood 166 mg/dL (75-99)
[2018-06-09] MEDS: FERROUS SULFATE 325 MG TAB PO SCH (07:21)
[2018-06-09] MEDS: ASPIRIN 81 MG PO SCH (07:21)
[2018-06-09] MEDS: ATORVASTATIN 40 MG TAB PO SCH (07:21)
[2018-06-09] MEDS: DULoxetine HCL 60 MG CAPSULE.DR PO SCH ×2 (07:21→20:35)
[2018-06-09] MEDS: CALCITRIOL 0.25 MCG CAP PO SCH (07:21)
[2018-06-09] MEDS: CLOPIDOGREL 75 MG TAB PO SCH (07:21)
[2018-06-09] MEDS: PANTOPRAZOLE 40 MG TABLET PO SCH (07:21)
[2018-06-09] MEDS: CARVEDILOL 12.5 MG TAB PO SCH ×2 (07:21→15:27)
[2018-06-09] MEDS: SENNOSIDES-DOCUSATE SODIUM 1 EACH TAB PO SCH ×2 (07:21→20:35)
[2018-06-09] MEDS: PREGABALIN 75 MG CAP PO SCH ×3 (07:21→20:35)
[2018-06-09] MEDS: amLODIPine 5 MG TAB PO SCH (07:21)
[2018-06-09] MEDS: TOPIRAMATE 25 MG TAB PO SCH ×2 (07:21→20:36)
[2018-06-09] MEDS: INSULIN ASPART (NovoLOG) 100 UNIT/ML VIAL SQ SCH ×3 (07:22→17:07)
[2018-06-09] MEDS: ceFAZolin 3 GM in SODIUM CHLORIDE 0.9% 100 ML IVPB SCH ×3 (07:22→23:49)
[2018-06-09 09:35] LABS: Calcium 8.2 mg/dL (8.4-10.2)
[2018-06-09 11:21] LABS: Glucose,Whole Blood 91 mg/dL (75-99)
--- NOTE | 2018-06-09 14:00 | PN ---
PROGRESS NOTE DATE OF SERVICE: 06/09/2018 REASON FOR FOLLOWUP: Right lower extremity cellulitis. INTERVAL HISTORY: The patient is currently afebrile. The patient has been breathing comfortably. Denies having any chest pain or any cough, right leg swelling persists, redness has slightly decreased. PHYSICAL EXAMINATION: Blood pressure 130/75 with a pulse of 79, temperature 98.1, she is 95% on room air. General description is a middle-aged female up in the bed, in no distress. RESPIRATORY SYSTEM: Unlabored breathing, clear to auscultation anteriorly. HEART: S1, S2. Regular rate and rhythm. ABDOMEN: Soft. EXTREMITIES: Right leg swelling persists, redness has slightly decreased. LABS: BUN of 23, creatinine 1.03. Blood culture has been negative. Urine is negative. DIAGNOSTIC IMPRESSION AND PLAN: Patient with acute right lower extremity cellulitis with diffuse cellulitis likely streptococcal disease. Patient's fever has resolved. White count has normalized. The cellulitis is slow to respond. Will keep the patient on cefazolin for another 24 hours and re-evaluate the patient tomorrow. The patient was advised to keep the leg elevated to keep some of the swelling down. Continue supportive care. MMODL / IJN: [id number] /
[2018-06-09] MEDS: HYDROmorphone 0.5 MG/0.5 ML SYRINGE IVP PRN ×2 (15:26→22:01)
[2018-06-09 16:58] LABS: Glucose,Whole Blood 165 mg/dL (75-99)
[2018-06-09 20:34] LABS: Glucose,Whole Blood 116 mg/dL (75-99)
[2018-06-09] MEDS: INSULIN DETEMIR (LEVEMIR) 100 UNIT/ML SYR SQ SCH (21:55)
--- NOTE | 2018-06-10 01:21 | P.PN ---
Subjective Progress Note Date: 06/09/18 Principal diagnosis: Right lower extremity cellulitis with history of chronic lymphedema 63-year-old female with history of colitis in the past multiple episodes came in with redness of the right leg and found as the lightest again extending up to the midthigh area. Patient is presently on ceftezole and will continue with antibiotic monitor. Blood sugars were low down titrated the insulin. 06/08/2018 Discussed with infectious disease can you with present antibiotics patient's fever and leukocytosis improved although has redness has gone up. 06/09/2018 Patient is still having right lower extremities redness and increased swelling. No fever no chills. Currently being continued on IV antibioticsin the form of cefazolin. ID is following. Constitutional: Denied any fatigue denied any fever. Cardio vascular: denied any chest pain, palpitations Gastrointestinal denied any nausea vomiting Pulmonary: Denied any shortness of breath cough Neurologic denied any new focal deficits All inpatient medications were reviewed and appropriate changes in these medications as dictated in the interval history and assessment and plan. Objective - Vital Signs Vital signs: Vital Signs Temp 98.1 F 06/09/18 07:00 Pulse 79 06/09/18 07:00 Resp 12 06/09/18 07:00 BP 130/75 06/09/18 07:00 Pulse Ox 95 06/09/18 07:00 Intake & Output 06/08/18 06/09/18 06/09/18 18:59 06:59 18:59 Intake Total 480 Balance 480 Intake: Oral 480 Other: Voiding Method Incontinent Bedpan Bedpan # Voids 3 4 # Bowel Movements 1 - Exam PHYSICAL EXAMINATION: GENERAL: The patient is alert and oriented x3, not in any acute distress. Well developed, well nourished. obese HEENT: Pupils are round and equally reacting to light. EOMI. No scleral icterus. No conjunctival pallor. Normocephalic, atraumatic. No pharyngeal erythema. No thyromegaly. CARDIOVASCULAR: S1 and S2 present. No murmurs, rubs, or gallops. PULMONARY: Chest is clear to auscultation, no wheezing or crackles. ABDOMEN: Soft, nontender, nondistended, normoactive bowel sounds. No palpable organomegaly. MUSCULOSKELETAL: No joint swelling or deformity. EXTREMITIES: No cyanosis, clubbing, bilateral pedal edema most significant on the right side chronic venous stasis dermatosis, chronic venous stasis with the significantly swollen right leg circumferential redness extending up to the midthigh area and is little bit more proximal today. There is probably some [place] is of temperature NEUROLOGICAL: Gross neurological examination did not reveal any focal deficits. SKIN: No rashes. - Labs CBC & Chem 7: 06/08/18 07:29 06/09/18 08:18 Labs: Abnormal Lab Results - Last 24 Hours (Table) 06/08/18 06/08/18 06/09/18 Range/Units 11:41 17:01 06:58 Chloride (98-107) mmol/L Carbon Dioxide (22-30) mmol/L BUN (7-17) mg/dL Glucose (74-99) mg/dL POC Glucose (mg/dL) 103 H 122 H 166 H (75-99) mg/dL Calcium (8.4-10.2) mg/dL 06/09/18 Range/Units 08:18 Chloride 112 H (98-107) mmol/L Carbon Dioxide 19 L (22-30) mmol/L BUN 23 H (7-17) mg/dL Glucose 146 H (74-99) mg/dL POC Glucose (mg/dL) (75-99) mg/dL Calcium 8.2 L (8.4-10.2) mg/dL Microbiology - Last 24 Hours (Table) 06/05/18 21:42 Blood Culture - Preliminary Blood No Growth after 72 hours Assessment and Plan Assessment: -Sepsis secondary to cellulitis of the right lower extremity: Continue with ceftezole and DVT was ruled out. -Type 2 diabetes mellitus well controlled blood sugars patient is actually hypoglycemic here down titrated insulin. -acute renal failure prerenal azotemia continue with IV fluids, repeat basic metabolic profile tomorrow -hypertension -Gastroesophageal reflux disease -Sleep apnea and obesity -Chronic bilateral lower extremity lymphedema -History of CVA or TIA in the past Patient will need pharmacologic GI as well as DVT prophylaxis Time with Patient: Greater than 30
[2018-06-10] MEDS: HYDROmorphone 0.5 MG/0.5 ML SYRINGE IVP PRN (02:36)
[2018-06-10 07:00] LABS: Glucose,Whole Blood 130 mg/dL (75-99)
[2018-06-10 07:50] VITALS: BP 155/81; PULSE 75; RESP 16; TEMP 98.3
[2018-06-10] MEDS: PANTOPRAZOLE 40 MG TABLET PO SCH (07:50)
[2018-06-10] MEDS: ASPIRIN 81 MG PO SCH (07:50)
[2018-06-10] MEDS: SENNOSIDES-DOCUSATE SODIUM 1 EACH TAB PO SCH (07:50)
[2018-06-10] MEDS: oxyCODONE-APAP 10-325MG 1 EACH TAB PO PRN (07:51)
[2018-06-10] MEDS: amLODIPine 5 MG TAB PO SCH (07:51)
[2018-06-10] MEDS: CALCITRIOL 0.25 MCG CAP PO SCH (07:51)
[2018-06-10] MEDS: CARVEDILOL 12.5 MG TAB PO SCH (07:51)
[2018-06-10] MEDS: ATORVASTATIN 40 MG TAB PO SCH (07:51)
[2018-06-10] MEDS: FERROUS SULFATE 325 MG TAB PO SCH (07:51)
[2018-06-10] MEDS: TOPIRAMATE 25 MG TAB PO SCH (07:51)
[2018-06-10] MEDS: CLOPIDOGREL 75 MG TAB PO SCH (07:51)
[2018-06-10] MEDS: DULoxetine HCL 60 MG CAPSULE.DR PO SCH (07:51)
[2018-06-10] MEDS: PREGABALIN 75 MG CAP PO SCH (07:51)
[2018-06-10] MEDS: HEPARIN SODIUM,PORCINE 5,000 UNIT/ML 1 ML VIAL SQ SCH (07:52)
[2018-06-10] MEDS: INSULIN ASPART (NovoLOG) 100 UNIT/ML VIAL SQ SCH ×2 (07:52→13:33)
[2018-06-10 09:24] LABS: Anisocytosis Slight; Basophils % (A) 1 %; Eosinophils # (A) 0.2 k/uL (0-0.7); Eosinophils % (A) 3 %; HCT 31.5 % (34.0-46.0); HGB 9.4 gm/dL (11.4-16.0); Hypochromasia Marked; Lymphocytes # (A) 0.7 k/uL (1.0-4.8); Lymphocytes % (A) 14 %; MCH 27.9 pg (25.0-35.0); MCHC 29.9 g/dL (31.0-37.0); MCV 93.1 fL (80.0-100.0); Mean Platelet Volume 7.8; Monocytes # (A) 0.3 k/uL (0-1.0); Monocytes % (A) 5 %; Neutrophils # (A) 3.8 k/uL (1.3-7.7); Neutrophils % (A) 75 %; Platelet Count 250 k/uL (150-450); RBC 3.38 m/uL (3.80-5.40); RDW 16.5 % (11.5-15.5)
[2018-06-10 09:45] LABS: Calcium 8.6 mg/dL (8.4-10.2); Potassium 4.2 mmol/L (3.5-5.1)
[2018-06-10] MEDS: ceFAZolin 3 GM in SODIUM CHLORIDE 0.9% 100 ML IVPB SCH (10:58)
[2018-06-10 11:41] LABS: Glucose,Whole Blood 57 mg/dL (75-99)
--- NOTE | 2018-06-10 15:10 | PN ---
PROGRESS NOTE DATE OF SERVICE: 06/10/2018 REASON FOR FOLLOWUP: Right lower extremity cellulitis. INTERVAL HISTORY: The patient is currently afebrile. The patient denies having any chest pain or shortness of breath or cough. Right leg swelling persisted and redness has improved. Denies any pain in the leg area and no diarrhea with antibiotic therapy. PHYSICAL EXAMINATION: Blood pressure 155/81 with pulse of 75, temperature 98.3. She is 99% on room air. General description is a middle-aged female, up in the room in no distress. RESPIRATORY SYSTEM: Unlabored breathing, clear to auscultation anteriorly. HEART: S1, S2. Regular rate and rhythm. The right leg swelling persists, redness has decreased. No open wound or any drainage. LABS: Hemoglobin 9.4, white count 5.0, BUN of 14, creatinine 0.87. Blood culture has been negative. DIAGNOSTIC IMPRESSION AND PLAN: Patient with acute right lower extremity cellulitis. The patient has shown overall clinical improvement on cefazolin, to finish therapy with Keflex 500 mg p.o. q.6 hours for another 7-10 days. Continue supportive care. MMODL / IJN: [id number] /
--- NOTE | 2018-06-11 14:26 | CDI ---
Documentation Clarification Form Date: 06/11/2018 2:21:00 PM From: Tea Jimenez Phone: If you have a question regarding this query, please contact Colleen Tarango at [phone] between 8am and 5pm. Admit Date: 06/06/2018 12:04:00 AM Patient Name: Alma Vivar Visit Number: [id number] Discharge Date: 06/10/2018 4:06:00 PM ATTENTION: The Clinical Documentation Specialists (CDI) and [facility] Coding Staff appreciate your assistance in clarifying documentation. Please respond to the clarification below the line at the bottom and electronically sign. The CDI & [facility] Coding staff will review the response and follow-up if needed. Please note: Queries are made part of the Legal Health Record. If you have any questions, please contact the author of this message via ITS. Dr. Lilibeth Chong Altered Mental Status was documented in the H&P and mental status changes was documented in Dr. Muller's consult note. History/Risk Factors: Patient was admitted with sepsis due to right leg cellulitis, diabetes with hyperglycemia, acute renal failure and dehydration. Clinical Indicators: Patient was alert but lethargic per ED documentation. Labs: WBC 18.0, Neutrophils 16.8, Glucose 502, creatinine 1.45, BUN 27, X Ray: CXR - pulmonary vascular congestion. CT: No acute intracranial abnormality. Treatment: IV Cefazolin, IV Clindamycin, IV Vancomycin: Insulin - Novolog, Levemir, Humulin; 1 liter fluid bolus then at 100 mls/hr In your professional opinion, please clarify the etiology of the Altered Mental Status, if known. Delirium (specify cause): Dementia (if know, specify Type and if with/without Behavioral Disturbance) Encephalopathy (specify Type and Underlying Medical Illness) Other condition (please specify) Unable to determine MTDD
== END 2018-06-10 16:06 | disposition home health service (06) | DRG 872 ==
LOC: EC 21:28 → 4SSUR 06-06 00:04
PROVIDERS: ADMIT Internal Medicine; ATTEND Internal Medicine
DX: A40.9 Streptococcal sepsis, unspecified (principal); L03.115 Cellulitis of right lower limb; N17.9 Acute kidney failure, unspecified; I69.954 Hemiplegia and hemiparesis following unspecified cerebrovascular disease affecting left non-dominant side; Z68.41 Body mass index [BMI] 40.0-44.9, adult; E11.22 Type 2 diabetes mellitus with diabetic chronic kidney disease; E11.649 Type 2 diabetes mellitus with hypoglycemia without coma; E11.65 Type 2 diabetes mellitus with hyperglycemia; N18.3 Chronic kidney disease, stage 3 (moderate); E66.9 Obesity, unspecified; E86.0 Dehydration; F32.9 Major depressive disorder, single episode, unspecified; G47.30 Sleep apnea, unspecified; I12.9 Hypertensive chronic kidney disease with stage 1 through stage 4 chronic kidney disease, or unspecified chronic kidney disease; I89.0 Lymphedema, not elsewhere classified; K21.9 Gastro-esophageal reflux disease without esophagitis; L30.9 Dermatitis, unspecified; M06.9 Rheumatoid arthritis, unspecified; R31.9 Hematuria, unspecified; I87.8 Other specified disorders of veins; R32 Unspecified urinary incontinence; Z79.02 Long term (current) use of antithrombotics/antiplatelets; Z79.4 Long term (current) use of insulin; Z79.82 Long term (current) use of aspirin; Z79.899 Other long term (current) drug therapy; Z80.1 Family history of malignant neoplasm of trachea, bronchus and lung; Z82.49 Family history of ischemic heart disease and other diseases of the circulatory system; Z83.3 Family history of diabetes mellitus
CPT/HCPCS: 36415; 70450; 71046; 80048; 80053; 81001; 82009; 82140; 82550; 82553; 83036; 83605; 83690; 83735; 85025; 85027; 87040; 87086; 87502; 93005; 96361; 96374; 96375; 99285

== ENCOUNTER 2018-09-21 21:26 | Inpatient (IN) | payer MEDICARE ==
[2018-09-21] MEDS ORDERED: SODIUM CHLORIDE 0.9% 1,000 ML IV STA ×3 (21:47→23:56)
--- NOTE | 2018-09-21 21:51 | ED ---
Altered Mental Status HPI - General Chief Complaint: Altered Mental Status Stated Complaint: Hyperglycemia Time Seen by Provider: 09/21/18 21:47 Source: patient, RN notes reviewed, old records reviewed Mode of arrival: wheelchair Limitations: no limitations - History of Present Illness Initial Comments: This is a 63-year-old female the ER for evaluation. Patient resents today for evaluation regarding fever. Altered mental status. Elevated blood sugar. Patient's a poor strain history obtained by family member, daughter at bedside. They have noted patient not to be acting appropriately throughout the day, elevated blood sugar and fever also noted. Patient herself is without current complaining MD Complaint: altered mental status, confusion, weakness -: hour(s) Severity: moderate Consistency of Symptoms: waxing and waning, getting worse Context: history of similar presentation, recent fever, diabetes Associated Symptoms: denies other symptoms - Related Data Home Medications Medication Instructions Recorded Confirmed Calcitriol 0.5 mcg PO DAILY 09/30/13 09/21/18 Clopidogrel Bisulfate [Plavix] 75 mg PO DAILY 09/30/13 09/21/18 DULoxetine HCL [Cymbalta] 60 mg PO BID 09/30/13 09/21/18 Ferrous Sulfate [Iron (65 MG 325 mg PO DAILY 07/06/16 09/21/18 Elemental)] Topiramate [Topamax] 25 mg PO BID 07/06/16 09/21/18 Aspirin 81 mg PO DAILY 01/06/17 09/21/18 Atorvastatin [Lipitor] 40 mg PO DAILY 01/06/17 09/21/18 Carvedilol [Coreg*] 12.5 mg PO BID 04/06/18 09/21/18 Insulin Aspart [NovoLOG Flexpen] 12 units SQ AC-LUNCH 06/05/18 09/21/18 Insulin Aspart [NovoLOG Flexpen] 15 units SQ AC-BRKFST 06/05/18 09/21/18 Insulin Aspart [NovoLOG Flexpen] 15 units SQ AC-SUPPER 06/05/18 09/21/18 Insulin Glargine [Lantus] 30 unit SQ HS 06/05/18 09/21/18 amLODIPine [Norvasc] 10 mg PO DAILY 06/05/18 09/21/18 Cefdinir [Omnicef] 300 mg PO BID 09/21/18 09/21/18 Lisinopril [Zestril] 2.5 mg PO DAILY 09/21/18 09/21/18 Previous Rx's Medication Instructions Recorded Pregabalin [Lyrica] 75 mg PO TID #9 cap 04/12/18 oxyCODONE-APAP 10-325MG [Percocet 1 tab PO Q6H PRN #12 tab 04/12/18 10-325 mg] Allergies Allergy/AdvReac Type Severity Reaction Status Date / Time No Known Allergies Allergy Verified 09/21/18 22:18 Review of Systems ROS Statement: Those systems with pertinent positive or pertinent negative responses have been documented in the HPI. ROS Other: All systems not noted in ROS Statement are negative. 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 lt side weaker than rt", vertigo, neck pain, mini stroke nov 2016. no cpap used. Ulcer on right great toe History of Any Multi-Drug Resistant Organisms: None Reported Past Surgical History: Breast Surgery Additional Past Surgical History / Comment(s): breast biopsy, gastric sleeve 11/07/14, colonoscopy 04/14/14 Past Anesthesia/Blood Transfusion Reactions: Motion Sickness Past Psychological History: Depression Smoking Status: Never smoker Past Alcohol Use History: None Reported Past Drug Use History: None Reported - Past Family History Mother Family Medical History: Diabetes Mellitus Additional Family Medical History / Comment(s): heart attack, Brother of lung cancer 04/19/14 Father Family Medical History: Cancer Additional Family Medical History / Comment(s): lung cancer Brother(s) Family Medical History: Cancer Additional Family Medical History / Comment(s): LUNG General Exam Limitations: no limitations General appearance: alert, in no apparent distress Head exam: Present: atraumatic, normocephalic, normal inspection Eye exam: Present: normal appearance, PERRL, EOMI. Absent: scleral icterus, conjunctival injection, periorbital swelling ENT exam: Present: normal exam, mucous membranes moist Neck exam: Present: normal inspection. Absent: tenderness, meningismus, lymphadenopathy Respiratory exam: Present: normal lung sounds bilaterally. Absent: respiratory distress, wheezes, rales, rhonchi, stridor Cardiovascular Exam: Present: regular rate, normal rhythm, normal heart sounds. Absent: systolic murmur, diastolic murmur, rubs, gallop, clicks GI/Abdominal exam: Present: soft, normal bowel sounds. Absent: distended, tenderness, guarding, rebound, rigid Extremities exam: Present: normal inspection, full ROM, normal capillary refill. Absent: tenderness, pedal edema, joint swelling, calf tenderness Back exam: Present: normal inspection Neurological exam: Present: alert, oriented X3, CN II-XII intact Psychiatric exam: Present: normal affect, normal mood Skin exam: Present: warm, dry, intact, normal color. Absent: rash Course Vital Signs 09/21/18 21:36 Temperature 100.6 F H Pulse Rate 90 Respiratory 16 Rate Blood Pressure 143/74 O2 Sat by Pulse 97 Oximetry - Reevaluation(s) Reevaluation #1: 09/21/18 22:18 Medical records reviewed Reevaluation #2: 09/21/18 23:51 mild clinical improvement, BS improving, MS same Medical Decision Making - Medical Decision Making 63 female to the ED co weakness, fever, hyperglycemia, will admit for BS control and IV abx and hydration. - Lab Data Result diagrams: 09/21/18 22:40 09/21/18 22:40 Lab Results 09/21/18 09/21/18 09/21/18 Range/Units 22:40 22:40 23:19 WBC 13.6 H (3.8-10.6) k/uL RBC 3.98 (3.80-5.40) m/uL Hgb 11.8 (11.4-16.0) gm/dL Hct 37.6 (34.0-46.0) % MCV 94.3 (80.0-100.0) fL MCH 29.6 (25.0-35.0) pg MCHC 31.4 (31.0-37.0) g/dL RDW 15.4 (11.5-15.5) % Plt Count 244 (150-450) k/uL Neutrophils % 92 % Lymphocytes % 4 % Monocytes % 2 % Eosinophils % 1 % Basophils % 0 % Neutrophils # 12.5 H (1.3-7.7) k/uL Lymphocytes # 0.6 L (1.0-4.8) k/uL Monocytes # 0.3 (0-1.0) k/uL Eosinophils # 0.1 (0-0.7) k/uL Basophils # 0.0 (0-0.2) k/uL PT (9.0-12.0) sec INR (<1.2) APTT (22.0-30.0) sec VBG pH 7.43 H (7.31-7.41) VBG pCO2 32 L (37-51) mmHg VBG HCO3 21 L (24-28) mmol/L Sodium 137 (137-145) mmol/L Potassium 4.8 (3.5-5.1) mmol/L Chloride 103 (98-107) mmol/L Carbon Dioxide 22 (22-30) mmol/L Anion Gap 12 mmol/L BUN 31 H (7-17) mg/dL Creatinine 1.23 H (0.52-1.04) mg/dL Est GFR (CKD-EPI)AfAm 54 (>60 ml/min/1.73 sqM) Est GFR (CKD-EPI)NonAf 47 (>60 ml/min/1.73 sqM) Glucose 304 H (74-99) mg/dL Plasma Lactic Acid Flex (0.7-2.0) mmol/L Calcium 9.1 (8.4-10.2) mg/dL Phosphorus 3.7 (2.5-4.5) mg/dL Magnesium 1.5 L (1.6-2.3) mg/dL Total Bilirubin 0.8 (0.2-1.3) mg/dL AST 20 (14-36) U/L ALT 15 (9-52) U/L Alkaline Phosphatase 130 H (38-126) U/L Creatine Kinase (30-135) U/L Total Protein 7.9 (6.3-8.2) g/dL Albumin 3.9 (3.5-5.0) g/dL Acetone, Qual Negative (Negative) 09/21/18 09/21/18 09/21/18 Range/Units 23:19 23:19 23:19 WBC (3.8-10.6) k/uL RBC (3.80-5.40) m/uL Hgb (11.4-16.0) gm/dL Hct (34.0-46.0) % MCV (80.0-100.0) fL MCH (25.0-35.0) pg MCHC (31.0-37.0) g/dL RDW (11.5-15.5) % Plt Count (150-450) k/uL Neutrophils % % Lymphocytes % % Monocytes % % Eosinophils % % Basophils % % Neutrophils # (1.3-7.7) k/uL Lymphocytes # (1.0-4.8) k/uL Monocytes # (0-1.0) k/uL Eosinophils # (0-0.7) k/uL Basophils # (0-0.2) k/uL PT 10.7 (9.0-12.0) sec INR 1.0 (<1.2) APTT 32.1 H (22.0-30.0) sec VBG pH (7.31-7.41) VBG pCO2 (37-51) mmHg VBG HCO3 (24-28) mmol/L Sodium (137-145) mmol/L Potassium (3.5-5.1) mmol/L Chloride (98-107) mmol/L Carbon Dioxide (22-30) mmol/L Anion Gap mmol/L BUN (7-17) mg/dL Creatinine (0.52-1.04) mg/dL Est GFR (CKD-EPI)AfAm (>60 ml/min/1.73 sqM) Est GFR (CKD-EPI)NonAf (>60 ml/min/1.73 sqM) Glucose (74-99) mg/dL Plasma Lactic Acid Flex 1.6 (0.7-2.0) mmol/L Calcium (8.4-10.2) mg/dL Phosphorus (2.5-4.5) mg/dL Magnesium (1.6-2.3) mg/dL Total Bilirubin (0.2-1.3) mg/dL AST (14-36) U/L ALT (9-52) U/L Alkaline Phosphatase (38-126) U/L Creatine Kinase 27 L (30-135) U/L Total Protein (6.3-8.2) g/dL Albumin (3.5-5.0) g/dL Acetone, Qual (Negative) - EKG Data -: EKG Interpreted by Me (Chest x-ray shows sinus rhythm rate of 82, PA 156, QRS 90, QTc 450) Disposition Clinical Impression: Confusion, Dehydration, Hyperglycemia, Delirium due to general medical condition Disposition: ADMITTED IP TO THIS HOSP Condition: Fair Is patient prescribed a controlled substance at d/c from ED?: No Referrals: Mere Rodriguez DO [Primary Care Provider] - 1-2 days
[2018-09-21 23:00] LABS: Basophils % (A) 0 %; Eosinophils # (A) 0.1 k/uL (0-0.7); Eosinophils % (A) 1 %; HCT 37.6 % (34.0-46.0); HGB 11.8 gm/dL (11.4-16.0); Lymphocytes # (A) 0.6 k/uL (1.0-4.8); Lymphocytes % (A) 4 %; MCH 29.6 pg (25.0-35.0); MCHC 31.4 g/dL (31.0-37.0); MCV 94.3 fL (80.0-100.0); Mean Platelet Volume 7.1; Monocytes # (A) 0.3 k/uL (0-1.0); Monocytes % (A) 2 %; Neutrophils # (A) 12.5 k/uL (1.3-7.7); Neutrophils % (A) 92 %; Platelet Count 244 k/uL (150-450); RBC 3.98 m/uL (3.80-5.40); RDW 15.4 % (11.5-15.5); WBC 13.6 k/uL (3.8-10.6)
[2018-09-21 23:01] LABS: ALT 15 U/L (9-52); AST 20 U/L (14-36); African American GFR (CKD) 54 (>60 ml/min/1.73 sqM); Albumin 3.9 g/dL (3.5-5.0); Alkaline Phosphatase 130 U/L (38-126); Anion Gap 12 mmol/L; Blood Urea Nitrogen 31 mg/dL (7-17); Calcium 9.1 mg/dL (8.4-10.2); Carbon Dioxide 22 mmol/L (22-30); Chloride 103 mmol/L (98-107); Glucose 304 mg/dL (74-99); Magnesium 1.5 mg/dL (1.6-2.3); Phosphorus 3.7 mg/dL (2.5-4.5); Potassium 4.8 mmol/L (3.5-5.1); Sodium 137 mmol/L (137-145); Total Bilirubin 0.8 mg/dL (0.2-1.3); Total Protein 7.9 g/dL (6.3-8.2)
--- NOTE | 2018-09-21 23:28 | XR ---
EXAM: XR Chest, 2 Views CLINICAL HISTORY: ITS.REASON XR Reason: Weakness TECHNIQUE: Frontal and lateral views of the chest. COMPARISON: No relevant prior studies available. FINDINGS: Lungs: No infiltrate Pleural space: Unremarkable. No pneumothorax. Heart: No suspicious enlargement. Mediastinum: Unremarkable. Bones/joints: No acute fracture. IMPRESSION: No acute findings.
[2018-09-21 23:36] LABS: VBG PH 7.43 (7.31-7.41)
[2018-09-21 23:44] LABS: Partial Thromboplastin Time 32.1 sec (22.0-30.0); Prothrombin Time 10.7 sec (9.0-12.0)
[2018-09-21] MEDS ORDERED: INSULIN REGULAR 100 UNIT/ML VIAL IV STA (23:55)
[2018-09-22 00:26] LABS: Appearance,Urine Cloudy (Clear); Bacteria,Urine Rare /hpf; Bilirubin,Urine Negative (Negative); Blood,Urine Small (Negative); Color,Urine Yellow; Glucose,Urine (UA) 3+ (Negative); Hyaline Casts,Urine 1 /lpf (0-2); Ketones,Urine Negative (Negative); Leukocyte Esterase,Urine Negative (Negative); Mucus,Urine Rare /hpf; Nitrite,Urine Negative (Negative); PH, Urine 5.5 (5.0-8.0); Protein,Urine 1+ (Negative); RBC,Urine 98 /hpf (0-5); Specific Gravity,Urine 1.019 (1.001-1.035); Squamous Epithelial Cell,Urine 1 /hpf (0-4); Urobilinogen,Urine <2.0 mg/dL (<2.0); WBC,Urine 10 /hpf (0-5)
[2018-09-22 02:58] LABS: Glucose,Whole Blood 245 mg/dL (75-99)
[2018-09-22] MEDS: oxyCODONE-APAP 10-325MG 1 EACH TAB PO PRN ×4 (05:18→22:37)
[2018-09-22 06:52] LABS: Glucose,Whole Blood 240 mg/dL (75-99)
[2018-09-22] MEDS: INSULIN ASPART (NovoLOG) 100 UNIT/ML VIAL SQ SCH ×3 (08:34→17:24)
[2018-09-22] MEDS ORDERED: ENOXAPARIN 40 MG/0.4 ML SYRINGE SQ SCH (09:00)
[2018-09-22 09:39] VITALS: BMI 40.6
[2018-09-22 11:22] LABS: Glucose,Whole Blood 172 mg/dL (75-99)
[2018-09-22] MEDS ORDERED: VANCOMYCIN IV PER PHARMACY 1 EACH MISC MISCELLANE PRN (15:18)
--- NOTE | 2018-09-22 15:50 | P.HPIM ---
History of Present Illness 63-year-old are present female came in with compensative fever and elevated blood sugar patient does have some light his of the right leg patient has frequency related to the right leg patient does have lymphedema both legs. Patient does have elevated creatinine as well baseline is around 1. Patient is on lisinopril which will be held temporarily. Patient was started on IV fluids. Patient denied dysuria deserted denied any urinary urgency frequency denied any cough. Urine is bit abnormal but the not significant for urinary tract infection. She was started on maximizing infectious disease will be canceled it patient has a stage III diabetic ulcer on the right great toe on the plantar surface which doesn't appear to be infected no purulent drainage from the Review of Systems REVIEW OF SYSTEMS: CONSTITUTIONAL: As mentioned in HPI HEENT: No recent visual problems or hearing problems. Denied any sore throat. CARDIOVASCULAR: No chest pain, orthopnea, PND, no palpitations, no syncope. PULMONARY: No shortness of breath, no cough, no hemoptysis. GASTROINTESTINAL: No diarrhea, no nausea, no vomiting, no abdominal pain. NEUROLOGICAL: No headaches, no weakness, no numbness. HEMATOLOGICAL: Denies any bleeding or petechiae. GENITOURINARY: Denies any burning micturition, frequency, or urgency. MUSCULOSKELETAL/RHEUMATOLOGICAL: Denies any joint pain, swelling, or any muscle pain. ENDOCRINE: Denies any polyuria or polydipsia. The rest of the 14-point review of systems is negative. 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 lt side weaker than rt", vertigo, neck pain, mini stroke nov 2016. no cpap used. right big toe ulcer. 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: None Reported Past Surgical History: Breast Surgery Additional Past Surgical History / Comment(s): breast biopsy, gastric sleeve 11/07/14, colonoscopy 04/14/14 bilateral cataract surgery Past Anesthesia/Blood Transfusion Reactions: Motion Sickness Past Psychological History: Depression Additional Psychological History / Comment(s): and lives with family home with her . 2 adult children. No tobacco or alcohol use. No experience. No international travel. Pet cats at home they are not new. Used to work in a care of handicapped persons Smoking Status: Never smoker Past Alcohol Use History: None Reported Past Drug Use History: None Reported - Past Family History Mother Family Medical History: Diabetes Mellitus Additional Family Medical History / Comment(s): heart attack, Brother of lung cancer 04/19/14 Father Family Medical History: Cancer Additional Family Medical History / Comment(s): lung cancer Brother(s) Family Medical History: Cancer Additional Family Medical History / Comment(s): LUNG Medications and Allergies Home Medications Medication Instructions Recorded Confirmed Type Calcitriol 0.5 mcg PO DAILY 09/30/13 09/21/18 History Clopidogrel Bisulfate [Plavix] 75 mg PO DAILY 09/30/13 09/21/18 History DULoxetine HCL [Cymbalta] 60 mg PO BID 09/30/13 09/21/18 History Ferrous Sulfate [Iron (65 MG 325 mg PO DAILY 07/06/16 09/21/18 History Elemental)] Topiramate [Topamax] 25 mg PO BID 07/06/16 09/21/18 History Aspirin 81 mg PO DAILY 01/06/17 09/21/18 History Atorvastatin [Lipitor] 40 mg PO DAILY 01/06/17 09/21/18 History Carvedilol [Coreg*] 12.5 mg PO BID 04/06/18 09/21/18 History Pregabalin [Lyrica] 75 mg PO TID #9 cap 04/12/18 09/21/18 Rx oxyCODONE-APAP 10-325MG [Percocet 1 tab PO Q6H PRN #12 tab 04/12/18 09/21/18 Rx 10-325 mg] Insulin Aspart [NovoLOG Flexpen] 12 units SQ AC-LUNCH 06/05/18 09/21/18 History Insulin Aspart [NovoLOG Flexpen] 15 units SQ AC-BRKFST 06/05/18 09/21/18 History Insulin Aspart [NovoLOG Flexpen] 15 units SQ AC-SUPPER 06/05/18 09/21/18 History Insulin Glargine [Lantus] 30 unit SQ HS 06/05/18 09/21/18 History amLODIPine [Norvasc] 10 mg PO DAILY 06/05/18 09/21/18 History Cefdinir [Omnicef] 300 mg PO BID 09/21/18 09/21/18 History Lisinopril [Zestril] 2.5 mg PO DAILY 09/21/18 09/21/18 History Allergies Allergy/AdvReac Type Severity Reaction Status Date / Time No Known Allergies Allergy Verified 09/22/18 01:30 Physical Exam Vitals: Vital Signs Temp Pulse Pulse Resp BP BP Pulse Ox 09/22/18 12:15 98.8 F 79 17 157/64 95 09/22/18 05:32 100.8 F H 85 18 143/79 96 09/22/18 01:44 98.5 F 82 20 154/64 98 09/22/18 00:52 100.2 F H 85 18 180/75 98 09/21/18 21:36 100.6 F H 90 16 143/74 97 Intake and Output 09/22/18 09/22/18 09/22/18 06:59 14:59 22:59 Intake Total 1300 Balance 1300 Intake: Intake, IV Titration 1300 Amount Sodium Chloride 0.9% 1, 300 000 ml @ 100 mls/hr IV . Q10H [facility] Rx#:[id number] Sodium Chloride 0.9% 1, 1000 000 ml @ 999 mls/hr IV . Q1H1M [facility] Rx#:[id number] Other: Voiding Method Incontinent # Voids 2 Weight 128.367 kg PHYSICAL EXAMINATION: GENERAL: The patient is alert and oriented x3, not in any acute distress. Well developed, well nourished. HEENT: Pupils are round and equally reacting to light. EOMI. No scleral icterus. No conjunctival pallor. Normocephalic, atraumatic. No pharyngeal erythema. No thyromegaly. CARDIOVASCULAR: S1 and S2 present. No murmurs, rubs, or gallops. PULMONARY: Chest is clear to auscultation, no wheezing or crackles. ABDOMEN: Soft, nontender, nondistended, normoactive bowel sounds. No palpable organomegaly. MUSCULOSKELETAL: No joint swelling or deformity. EXTREMITIES: No cyanosis, clubbing, or pedal edema. NEUROLOGICAL: Gross neurological examination did not reveal any focal deficits. SKIN: Right leg circumferential redness with local is of temperature minimal tenderness both legs are lymphedematous, stage III ulcer on the plantar surface of the right great toe Results CBC & Chem 7: 09/21/18 22:40 09/21/18 22:40 Labs: Abnormal Lab Results - Last 24 Hours (Table) 09/21/18 09/21/18 09/21/18 Range/Units 00:04 22:40 22:40 WBC 13.6 H (3.8-10.6) k/uL Neutrophils # 12.5 H (1.3-7.7) k/uL Lymphocytes # 0.6 L (1.0-4.8) k/uL APTT (22.0-30.0) sec VBG pH (7.31-7.41) VBG pCO2 (37-51) mmHg VBG HCO3 (24-28) mmol/L BUN 31 H (7-17) mg/dL Creatinine 1.23 H (0.52-1.04) mg/dL Glucose 304 H (74-99) mg/dL POC Glucose (mg/dL) (75-99) mg/dL Magnesium 1.5 L (1.6-2.3) mg/dL Alkaline Phosphatase 130 H (38-126) U/L Creatine Kinase (30-135) U/L Urine Appearance Cloudy H (Clear) Urine Protein 1+ H (Negative) Urine Glucose (UA) 3+ H (Negative) Urine Blood Small H (Negative) Urine RBC 98 H (0-5) /hpf Urine WBC 10 H (0-5) /hpf Urine Bacteria Rare H (None) /hpf Urine Mucus Rare H (None) /hpf 09/21/18 09/21/18 09/21/18 Range/Units 23:19 23:19 23:19 WBC (3.8-10.6) k/uL Neutrophils # (1.3-7.7) k/uL Lymphocytes # (1.0-4.8) k/uL APTT 32.1 H (22.0-30.0) sec VBG pH 7.43 H (7.31-7.41) VBG pCO2 32 L (37-51) mmHg VBG HCO3 21 L (24-28) mmol/L BUN (7-17) mg/dL Creatinine (0.52-1.04) mg/dL Glucose (74-99) mg/dL POC Glucose (mg/dL) (75-99) mg/dL Magnesium (1.6-2.3) mg/dL Alkaline Phosphatase (38-126) U/L Creatine Kinase 27 L (30-135) U/L Urine Appearance (Clear) Urine Protein (Negative) Urine Glucose (UA) (Negative) Urine Blood (Negative) Urine RBC (0-5) /hpf Urine WBC (0-5) /hpf Urine Bacteria (None) /hpf Urine Mucus (None) /hpf 09/22/18 09/22/18 09/22/18 Range/Units 02:56 06:48 11:20 WBC (3.8-10.6) k/uL Neutrophils # (1.3-7.7) k/uL Lymphocytes # (1.0-4.8) k/uL APTT (22.0-30.0) sec VBG pH (7.31-7.41) VBG pCO2 (37-51) mmHg VBG HCO3 (24-28) mmol/L BUN (7-17) mg/dL Creatinine (0.52-1.04) mg/dL Glucose (74-99) mg/dL POC Glucose (mg/dL) 245 H 240 H 172 H (75-99) mg/dL Magnesium (1.6-2.3) mg/dL Alkaline Phosphatase (38-126) U/L Creatine Kinase (30-135) U/L Urine Appearance (Clear) Urine Protein (Negative) Urine Glucose (UA) (Negative) Urine Blood (Negative) Urine RBC (0-5) /hpf Urine WBC (0-5) /hpf Urine Bacteria (None) /hpf Urine Mucus (None) /hpf Microbiology - Last 24 Hours (Table) 09/21/18 00:04 Urine Culture - Preliminary Urine,Voided Thrombosis Risk Factor Assmnt - Choose All That Apply Any of the Below Risk Factors Present?: Yes Each Factor Represents 1 point: Swollen legs (current) Other Risk Factors: Yes Each Risk Factor Represents 2 Points: Age 61-74 years, Patient confined to bed Other congenital or acquired thrombophilia - If yes, enter type in comment: No Thrombosis Risk Factor Assessment Total Risk Factor Score: 5 Thrombosis Risk Factor Assessment Level: High Risk Assessment and Plan Plan: -Sepsis secondary to cellulitis patient does have an ulcer will obtain wound cultures from that vancomycin was started infectious disease will evaluated the patient -Chronic lymphedema next and-acute renal failure probably prerenal azotemia will be started on IV fluids - hypomagnesemia magnesium will be supplemented -Acute renal failure: Prerenal azotemia patient will be started on IV fluids -Type 2 diabetes mellitus uncontrolled elevated blood sugars secondary to noncompliance with medications patient will be started on regimen and the will c ontinue to check the blood sugars and titrated depending on the blood sugars. -Severity in the past next and have an hypertension -obesity sleep apnea. -DVT prophylaxis with subcutaneous heparin
[2018-09-22] MEDS ORDERED: VANCOMYCIN 2,000 MG in SODIUM CHLORIDE 0.9% 500 ML 500 ML IVPB ONE (16:00)
[2018-09-22 16:47] LABS: Glucose,Whole Blood 249 mg/dL (75-99)
[2018-09-22] MEDS: HEPARIN SODIUM,PORCINE 5,000 UNIT/ML 1 ML VIAL SQ SCH ×2 (17:21→20:49)
[2018-09-22] MEDS: PREGABALIN 75 MG CAP PO SCH ×2 (17:21→20:49)
[2018-09-22] MEDS: CARVEDILOL 12.5 MG TAB PO SCH (17:23)
[2018-09-22] MEDS ORDERED: INSULIN ASPART (NovoLOG) 100 UNIT/ML VIAL SQ SCH (17:30)
[2018-09-22 19:22] LABS: Glucose,Whole Blood 185 mg/dL (75-99)
[2018-09-22] MEDS: INSULIN DETEMIR (LEVEMIR) 100 UNIT/ML SYR SQ SCH (20:49)
[2018-09-22] MEDS: DULoxetine HCL 60 MG CAPSULE.DR PO SCH (20:49)
[2018-09-22] MEDS: TOPIRAMATE 25 MG TAB PO SCH (20:51)
[2018-09-22] MEDS: MAGNESIUM SULFATE-D5W PMX 1 GM in DEXTROSE/WATER 1 100ML.BAG IVPB SCH ×2 (22:29→23:39)
[2018-09-23] MEDS: oxyCODONE-APAP 10-325MG 1 EACH TAB PO PRN ×3 (00:56→21:00)
[2018-09-23 07:01] LABS: Glucose,Whole Blood 49 mg/dL (75-99)
[2018-09-23 07:20] LABS: Glucose,Whole Blood 60 mg/dL (75-99)
[2018-09-23] MEDS: INSULIN ASPART (NovoLOG) 100 UNIT/ML VIAL SQ SCH ×4 (07:22→18:16)
[2018-09-23] MEDS: DULoxetine HCL 60 MG CAPSULE.DR PO SCH ×2 (07:30→20:59)
[2018-09-23] MEDS: CLOPIDOGREL 75 MG TAB PO SCH (07:30)
[2018-09-23] MEDS ORDERED: INSULIN ASPART (NovoLOG) 100 UNIT/ML VIAL SQ SCH ×2 (07:30→12:30)
[2018-09-23] MEDS: CALCITRIOL 0.25 MCG CAP PO SCH (07:30)
[2018-09-23] MEDS: amLODIPine 10 MG TAB PO SCH (07:31)
[2018-09-23] MEDS: FERROUS SULFATE 325 MG TAB PO SCH (07:31)
[2018-09-23] MEDS: ASPIRIN 81 MG PO SCH (07:31)
[2018-09-23] MEDS: TOPIRAMATE 25 MG TAB PO SCH ×2 (07:31→21:00)
[2018-09-23] MEDS: PREGABALIN 75 MG CAP PO SCH ×3 (07:31→23:06)
[2018-09-23] MEDS: ATORVASTATIN 40 MG TAB PO SCH (07:31)
[2018-09-23] MEDS: CARVEDILOL 12.5 MG TAB PO SCH ×2 (07:31→17:14)
[2018-09-23] MEDS: HEPARIN SODIUM,PORCINE 5,000 UNIT/ML 1 ML VIAL SQ SCH ×3 (07:32→23:48)
[2018-09-23 07:39] LABS: Glucose,Whole Blood 101 mg/dL (75-99)
[2018-09-23] MEDS ORDERED: LISINOPRIL 2.5 MG TAB PO SCH (09:00)
--- NOTE | 2018-09-23 09:42 | P.CONS ---
History of Present Illness - Reason for Consult Consult date: 09/22/18 Fever Requesting physician: Lilibeth Chong - Chief Complaint Fever and mental status changes x 2 days - History of Present Illness Patient is 63 year old female with a past medical history significant for lymphedema bilaterally extremity in history of recurrent cellulitis, patient has been brought into the ER at [facility] for evaluation of mental status changes and fever apparently hasn't a has been going on for a day or 2 before the patient was brought into the hospital and the patient also have elevated blood sugars at home patient is feeling weak and no energy, on presentation hospital the patient did have low-grade fever 100.6 200.8F patient did have elevated white count of 13,000, the patient did have a chest x-ray was negative for any pneumonia urine was mildly positive the patient did received a dose of Rocephin she was continued on vancomycin and infectious disease was consulted for further recommendation regarding antibiotic therapy. Patient at the time of my evaluation is more awake and alert she knows that she is in the hospital was unable to recognize me, she has been complaining of more swelling and redness to the right leg and she did have her daily aching pain to the legs for the last few days with intensity 6-7 out of 10 and worse on walking the patient also have a wound on the right big toe plantar aspect the patient has for a couple of weeks now is better sure how it started, patient denies significant drainage from the wound area Review of Systems CONSTITUTIONAL: Positive for weakness. Fever EYES: No complaint. ENT:No complaint. RESPIRATORY: No complaint. CARDIOVASCULAR: No complaint. GENITOURINARY: No complaint. GASTROINTESTINAL: No complaint. MUSCULOSKELETAL: As per history of present illness. INTEGUMENTARY: As per history of present illness PSYCHOLOGICAL: No complaint. ENDOCRINE: No complaint. NEUROLOGIC: As per history of present illness Past Medical History Past Medical History: CVA/TIA, Diabetes Mellitus, GERD/Reflux, Hypertension, Renal Disease, Rheumatoid Arthritis (RA), Sleep Apnea/CPAP/BIPAP Additional Past Medical History / Comment(s): "ckd stage lll", broken Lt foot 2011-no sx, stroke 2004 affected non dominant lt side . lt side weaker than rt", vertigo, neck pain, mini stroke nov 2016. no cpap used. right big toe ulcer. 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: None Reported Past Surgical History: Breast Surgery Additional Past Surgical History / Comment(s): breast biopsy, gastric sleeve 11/07/14, colonoscopy 04/14/14 bilateral cataract surgery Past Anesthesia/Blood Transfusion Reactions: Motion Sickness Past Psychological History: Depression Additional Psychological History / Comment(s): and lives with family home with her . 2 adult children. No tobacco or alcohol use. No experience. No international travel. Pet cats at home they are not new. Used to work in a care of handicapped persons Smoking Status: Never smoker Past Alcohol Use History: None Reported Past Drug Use History: None Reported - Past Family History Mother Family Medical History: Diabetes Mellitus Additional Family Medical History / Comment(s): heart attack, Brother of lung cancer 04/19/14 Father Family Medical History: Cancer Additional Family Medical History / Comment(s): lung cancer Brother(s) Family Medical History: Cancer Additional Family Medical History / Comment(s): LUNG Medications and Allergies Home Medications Medication Instructions Recorded Confirmed Type Calcitriol 0.5 mcg PO DAILY 09/30/13 09/21/18 History Clopidogrel Bisulfate [Plavix] 75 mg PO DAILY 09/30/13 09/21/18 History DULoxetine HCL [Cymbalta] 60 mg PO BID 09/30/13 09/21/18 History Ferrous Sulfate [Iron (65 MG 325 mg PO DAILY 07/06/16 09/21/18 History Elemental)] Topiramate [Topamax] 25 mg PO BID 07/06/16 09/21/18 History Aspirin 81 mg PO DAILY 01/06/17 09/21/18 History Atorvastatin [Lipitor] 40 mg PO DAILY 01/06/17 09/21/18 History Carvedilol [Coreg*] 12.5 mg PO BID 04/06/18 09/21/18 History Pregabalin [Lyrica] 75 mg PO TID #9 cap 04/12/18 09/21/18 Rx oxyCODONE-APAP 10-325MG [Percocet 1 tab PO Q6H PRN #12 tab 04/12/18 09/21/18 Rx 10-325 mg] Insulin Aspart [NovoLOG Flexpen] 12 units SQ AC-LUNCH 06/05/18 09/21/18 History Insulin Aspart [NovoLOG Flexpen] 15 units SQ AC-BRKFST 06/05/18 09/21/18 History Insulin Aspart [NovoLOG Flexpen] 15 units SQ AC-SUPPER 06/05/18 09/21/18 History Insulin Glargine [Lantus] 30 unit SQ HS 06/05/18 09/21/18 History amLODIPine [Norvasc] 10 mg PO DAILY 06/05/18 09/21/18 History Cefdinir [Omnicef] 300 mg PO BID 09/21/18 09/21/18 History Lisinopril [Zestril] 2.5 mg PO DAILY 09/21/18 09/21/18 History Allergies Allergy/AdvReac Type Severity Reaction Status Date / Time No Known Allergies Allergy Verified 09/22/18 01:30 Physical Exam Vitals: Vital Signs Temp Pulse Resp BP Pulse Ox 09/23/18 04:45 98.0 F 78 18 121/66 91 L 09/23/18 00:00 74 18 09/22/18 21:16 98.9 F 74 18 137/76 95 09/22/18 17:15 159/76 09/22/18 12:15 98.8 F 79 17 157/64 95 Intake and Output 09/22/18 09/23/18 09/23/18 22:59 06:59 14:59 Intake Total 1720 Balance 1720 Intake: Intake, IV Titration 1300 Amount Magnesium Sulfate-D5w Pmx 200 1 gm In Dextrose/Water 1 100ml.bag @ 100 mls/hr IVPB Q1H [facility] Rx#: [id number] Sodium Chloride 0.9% 1, 600 000 ml @ 100 mls/hr IV . Q10H [facility] Rx#:[id number] Vancomycin 2,000 mg In 500 Sodium Chloride 0.9% 500 ml 500 ml @ 167 mls/hr IVPB ONCE ONE Rx#: [id number] Oral 420 Other: Voiding Method Incontinent # Voids 2 2 GENERAL DESCRIPTION: An elderly female lying in bed, no distress. No tachypnea or accessory muscle of respiration use. HEENT: Shows Pallor , no scleral icterus. Oral mucous membrane is dry. No pharyngeal erythema or thrush NECK: Trachea central, no thyromegaly. LUNGS: Unlabored breathing. Clear to auscultation anteriorly. No wheeze or crackle. HEART: S1, S2, regular rate and rhythm. No loud murmur ABDOMEN: Soft, no tenderness , guarding or rigidity, no organomegaly EXTREMITIES: Diffuse swelling and redness of the right leg which is warm to touc h patient did have a wound on the plantar aspect of the right big toe with no slough tissue or any foul-smelling drainage SKIN: No rash, no masses palpable. NEUROLOGICAL: The patient is awake, alert, oriented x3, mood and affect normal. Results CBC & Chem 7: 09/21/18 22:40 09/23/18 08:09 Labs: Abnormal Lab Results - Last 24 Hours (Table) 09/22/18 09/22/18 09/22/18 Range/Units 11:20 16:44 19:21 Creatinine (0.52-1.04) mg/dL POC Glucose (mg/dL) 172 H 249 H 185 H (75-99) mg/dL 09/23/18 09/23/18 09/23/18 Range/Units 06:59 07:19 07:38 Creatinine (0.52-1.04) mg/dL POC Glucose (mg/dL) 49 L 60 L 101 H (75-99) mg/dL 09/23/18 Range/Units 08:09 Creatinine 1.08 H (0.52-1.04) mg/dL POC Glucose (mg/dL) (75-99) mg/dL Microbiology - Last 24 Hours (Table) 09/21/18 22:40 Blood Culture - Preliminary Blood No Growth after 24 hours 09/21/18 00:04 Urine Culture - Preliminary Urine,Voided Assessment and Plan Assessment: 1-patient admitted hospital with sepsis in this patient who did have a fever or elevated white count source is likely right lower extremity cellulitis and the first of injury is more likely the right big toe plantar wound which seemed to be superficial and not extend down to the bone, will need to cover for gram positive skin garcia both strep and staph 2- patient did have a positive UA but no significant urinary symptoms, clinically doubt symptomatic urinary tract infection (1) Wound of right foot Current Visit: Yes Status: Acute Code(s): S91.301A - UNSPECIFIED OPEN WOUND, RIGHT FOOT, INITIAL ENCOUNTER SNOMED Code(s): 479153618 (2) Cellulitis of right leg Current Visit: No Status: Acute Code(s): L03.115 - CELLULITIS OF RIGHT LOWER LIMB SNOMED Code(s): 131140321 (3) Sepsis Current Visit: No Status: Acute Code(s): A41.9 - SEPSIS, UNSPECIFIED ORGANISM SNOMED Code(s): 06745018 Plan: 1-wound base was cleaned and cultures were obtained to guide antibiotic therapy 2-Vancomycin pharmacy to dose target trough of 15 while watching her kidney function and Vanco trough closely 3-Aquacel silver dressing to the right foot plantar wound to be changed every 48 hours 4-x-rays of the right foot to rule out any cortical destruction We will follow on clinical condition and cultures to further adjust medication if needed Thank you for this consultation will follow this patient with you Time with Patient: Greater than 30
[2018-09-23 10:39] LABS: Glucose,Whole Blood 124 mg/dL (75-99)
[2018-09-23 11:19] LABS: Glucose,Whole Blood 112 mg/dL (75-99)
[2018-09-23] MEDS ORDERED: VANCOMYCIN 2,000 MG in SODIUM CHLORIDE 0.9% 500 ML 500 ML IVPB ONE (12:00)
--- NOTE | 2018-09-23 13:50 | XR ---
EXAMINATION TYPE: XR foot complete RT DATE OF EXAM: 09/23/2018 CLINICAL HISTORY: Right great toe plantar wound/ulcer TECHNIQUE: Frontal, lateral, and oblique images of the right foot are obtained. COMPARISON: None FINDINGS: There is no acute fracture/dislocation evident in the right foot. There is diffuse osseou s demineralization. There is diffuse soft tissue swelling of the great toe and some osseous irregular ity at the medial aspect of the base of the first proximal phalanx. The great toe however currently a ppears intact with no osseous erosion or cortical irregularity of the distal phalanx. Degenerative ch anges of the midfoot and forefoot are moderate. Small plantar enthesophyte and pes planus deformity s een. Old fracture deformity of the proximal third and phalanges. No subcutaneous emphysema. No radiop aque foreign body. IMPRESSION: 1. Diffuse soft tissue swelling of the distal first great toe surrounding the distal phalanx without definitive evidence of osteomyelitis at this time. If there is further concern MRI or three-phase bon e scan could be considered. 2. No acute fracture or dislocation in the right foot.
--- NOTE | 2018-09-23 15:49 | P.PN ---
Subjective 63-year-old female was admitted for sepsis secondary to select his of the right leg along with an ulcer in the 4 to is no evidence of prostatitis on the x-ray MRI as per infectious disease and patient on vancomycin improving symptoms improving serum creatinine. Patient blood sugars were low with change pre-meal insulin 3 times a day Constitutional: Denied any fatigue denied any fever. Cardio vascular: denied any chest pain, palpitations Gastrointestinal denied any nausea vomiting Pulmonary: Denied any shortness of breath cough Neurologic denied any new focal deficits All inpatient medications were reviewed and appropriate changes in these medications as dictated in the interval history and assessment and plan. Objective - Vital Signs Vital signs: Vital Signs Temp 98.2 F 09/23/18 11:54 Pulse 65 09/23/18 11:54 Resp 17 09/23/18 11:54 BP 126/62 09/23/18 11:54 Pulse Ox 94 L 09/23/18 11:54 Intake & Output 09/22/18 09/23/18 09/23/18 18:59 06:59 18:59 Intake Total 800 1720 980 Balance 800 1720 980 Weight 128.367 kg 128.367 kg Intake: Intake, IV Titration 1300 500 Amount Magnesium Sulfate-D5w Pmx 200 1 gm In Dextrose/Water 1 100ml.bag @ 100 mls/hr IVPB Q1H [facility] Rx#: [id number] Sodium Chloride 0.9% 1, 600 000 ml @ 100 mls/hr IV . Q10H STA Rx#:[id number] Vancomycin 2,000 mg In 500 Sodium Chloride 0.9% 500 ml 500 ml @ 167 mls/hr IVPB ONCE ONE Rx#: [id number] Vancomycin 2,000 mg In 500 Sodium Chloride 0.9% 500 ml 500 ml @ 167 mls/hr IVPB Q24H [facility] Rx#: [id number] Oral 800 420 480 Other: Voiding Method Incontinent Diaper Incontinent # Voids 4 2 3 - Exam PHYSICAL EXAMINATION: GENERAL: The patient is alert and oriented x3, not in any acute distress. Well developed, well nourished. HEENT: Pupils are round and equally reacting to light. EOMI. No scleral icterus. No conjunctival pallor. Normocephalic, atraumatic. No pharyngeal erythema. No thyromegaly. CARDIOVASCULAR: S1 and S2 present. No murmurs, rubs, or gallops. PULMONARY: Chest is clear to auscultation, no wheezing or crackles. ABDOMEN: Soft, nontender, nondistended, normoactive bowel sounds. No palpable organomegaly. MUSCULOSKELETAL: No joint swelling or deformity. EXTREMITIES: No cyanosis, clubbing, or pedal edema. NEUROLOGICAL: Gross neurological examination did not reveal any focal deficits. SKIN: Right leg circumferential redness with local is of temperature minimal tenderness both legs are lymphedematous, stage III ulcer on the plantar surface of the right great toe redness although improved - Labs CBC & Chem 7: 09/21/18 22:40 09/23/18 08:09 Labs: Abnormal Lab Results - Last 24 Hours (Table) 09/22/18 09/22/18 09/23/18 Range/Units 16:44 19:21 06:59 Creatinine (0.52-1.04) mg/dL POC Glucose (mg/dL) 249 H 185 H 49 L (75-99) mg/dL 09/23/18 09/23/18 09/23/18 Range/Units 07:19 07:38 08:09 Creatinine 1.08 H (0.52-1.04) mg/dL POC Glucose (mg/dL) 60 L 101 H (75-99) mg/dL 09/23/18 09/23/18 Range/Units 10:37 11:18 Creatinine (0.52-1.04) mg/dL POC Glucose (mg/dL) 124 H 112 H (75-99) mg/dL Microbiology - Last 24 Hours (Table) 09/21/18 00:04 Urine Culture - Preliminary Urine,Voided Gram Neg Bacilli 09/21/18 22:40 Blood Culture - Preliminary Blood No Growth after 24 hours Assessment and Plan Plan: -Sepsis secondary to cellulitis patient does have an ulcer will obtain wound cultures from that vancomycin was started infectious disease evaluated the patient -Chronic lymphedema next and-acute renal failure probably prerenal azotemia, IV fluids will be discontinued will repeat basic metabolic profile tomorrow - hypomagnesemia magnesium will be supplemented -Acute renal failure: Prerenal azotemia patient will be started on IV fluids -Type 2 diabetes mellitus uncontrolled elevated blood sugars secondary to noncompliance patient blood years were low today cutting down the pre-meal insulin as mentioned above -Essential hypertension -obesity sleep apnea. -DVT prophylaxis with subcutaneous heparin
[2018-09-23 17:06] LABS: Glucose,Whole Blood 180 mg/dL (75-99)
[2018-09-23 20:38] LABS: Glucose,Whole Blood 200 mg/dL (75-99)
[2018-09-23] MEDS: INSULIN DETEMIR (LEVEMIR) 100 UNIT/ML SYR SQ SCH (21:00)
--- NOTE | 2018-09-23 22:19 | PN ---
PROGRESS NOTE DATE OF SERVICE: 09/23/2018 REASON FOR CONSULTATION: Right big toe wound with right lower extremity cellulitis. INTERVAL HISTORY: The patient is currently afebrile. The patient has been breathing comfortably. The patient denies having any chest pain, shortness of breath or cough. No abdominal pain or any diarrhea. PHYSICAL EXAMINATION: Blood pressure is 126/62 with a pulse of 65, temperature 98.2. She is 94% on room air. General description is a middle-aged female lying in bed in no distress. RESPIRATORY SYSTEM: Unlabored breathing. Clear to auscultation anteriorly. HEART: S1, S2. Regular rate and rhythm. ABDOMEN: Soft. No tenderness. Right leg overall swelling and redness have improved. LABS/IMAGING: Blood cultures have been negative so far. Wound cultures were done yesterday; I do not see results in the computer system. X-rays have been negative for any osteomyelitis. DIAGNOSTIC IMPRESSION AND PLAN: Patient with right big toe wound with secondary cellulitis of the right lower extremity. Will try to track down the culture that was done yesterday and continue vancomycin while monitoring her kidney function closely. Continue supportive care. MMODL / IJN: [id number] /
[2018-09-24 01:30] LABS: Glucose,Whole Blood 177 mg/dL (75-99)
[2018-09-24] MEDS: oxyCODONE-APAP 10-325MG 1 EACH TAB PO PRN ×4 (02:55→21:21)
[2018-09-24 06:59] LABS: Glucose,Whole Blood 91 mg/dL (75-99)
[2018-09-24] MEDS: HEPARIN SODIUM,PORCINE 5,000 UNIT/ML 1 ML VIAL SQ SCH ×2 (08:29→16:42)
[2018-09-24] MEDS: CLOPIDOGREL 75 MG TAB PO SCH (08:29)
[2018-09-24] MEDS: ATORVASTATIN 40 MG TAB PO SCH (08:29)
[2018-09-24] MEDS: ASPIRIN 81 MG PO SCH (08:29)
[2018-09-24] MEDS: CARVEDILOL 12.5 MG TAB PO SCH ×2 (08:29→16:42)
[2018-09-24] MEDS: amLODIPine 10 MG TAB PO SCH (08:29)
[2018-09-24] MEDS: TOPIRAMATE 25 MG TAB PO SCH ×2 (08:30→21:25)
[2018-09-24] MEDS: FERROUS SULFATE 325 MG TAB PO SCH (08:30)
[2018-09-24] MEDS: CALCITRIOL 0.25 MCG CAP PO SCH (08:30)
[2018-09-24] MEDS: DULoxetine HCL 60 MG CAPSULE.DR PO SCH ×2 (08:30→21:19)
[2018-09-24] MEDS: PREGABALIN 75 MG CAP PO SCH ×3 (08:30→21:19)
[2018-09-24] MEDS: INSULIN ASPART (NovoLOG) 100 UNIT/ML VIAL SQ SCH ×6 (08:30→17:15)
[2018-09-24 10:12] LABS: HCT 31.6 % (34.0-46.0); HGB 10.2 gm/dL (11.4-16.0); Hypochromasia Slight; MCH 30.8 pg (25.0-35.0); MCHC 32.3 g/dL (31.0-37.0); MCV 95.4 fL (80.0-100.0); Mean Platelet Volume 7.6; Platelet Count 201 k/uL (150-450); RBC 3.31 m/uL (3.80-5.40); RDW 15.3 % (11.5-15.5); WBC 4.6 k/uL (3.8-10.6)
[2018-09-24 10:15] LABS: Calcium 8.1 mg/dL (8.4-10.2); Potassium 4.1 mmol/L (3.5-5.1)
[2018-09-24 11:31] LABS: Glucose,Whole Blood 137 mg/dL (75-99)
[2018-09-24] MEDS ORDERED: AMOXICILLIN 500 MG CAP PO SCH (12:00)
[2018-09-24] MEDS: VANCOMYCIN 2,000 MG in SODIUM CHLORIDE 0.9% 500 ML 500 ML IVPB SCH (12:22)
--- NOTE | 2018-09-24 13:58 | PN ---
PROGRESS NOTE DATE OF SERVICE: 09/24/2018 REASON FOR FOLLOWUP: Right lower extremity cellulitis. INTERVAL HISTORY: The patient is currently afebrile. Patient has been breathing comfortably. Denies having any chest pain or any cough. No abdominal pain. Overall, the redness on the right has much improved. There is no drainage. PHYSICAL EXAMINATION: On examination, blood pressure 121/67 with a pulse of 61, temperature 98.1. She is 94% on room air. General description is a middle-aged female lying in bed in no distress. RESPIRATORY SYSTEM: Unlabored breathing, clear to auscultation anteriorly. HEART: S1, S2. Regular rate and rhythm. ABDOMEN: Soft, no tenderness. Right leg swelling is much improved. LABS: Hemoglobin 10.2, white count 4.6, BUN of 25, creatinine is 1.10. The right big toe culture has to be recollected as initial cultures were lost. Urine is showing an E coli 100,000 colonies. DIAGNOSTIC IMPRESSION AND PLAN: 1. Patient with right lower extremity cellulitis, likely from an infected right big toe wound. Unfortunately, initial cultures were lost and was collected personally, that is currently delaying her discharge. Keep the patient on vancomycin while waiting for the culture obtained yesterday to finalize. Local care to continue with Aquacel Silver dressing. 2. Positive urine culture with Escherichia coli. Patient has no symptoms likely is bacteriuria and no need for any antibiotic therapy for the same. MMODL / IJN: [id number] /
[2018-09-24 17:13] LABS: Glucose,Whole Blood 112 mg/dL (75-99)
--- NOTE | 2018-09-24 17:26 | P.PN ---
Subjective 63-year-old female was admitted for sepsis secondary to select his of the right leg along with an ulcer in the 4 to is no evidence of prostatitis on the x-ray MRI as per infectious disease and patient on vancomycin improving symptoms improving serum creatinine. Patient blood sugars were low with change pre-meal insulin 3 times a day. 09/24/2018 Patient is on IV ampicillin which will be continued for now. Patient blood sugars are on the low normal side and the cutting down her insulin regimen including long-acting as well as female. Constitutional: Denied any fatigue denied any fever. Cardio vascular: denied any chest pain, palpitations Gastrointestinal denied any nausea vomiting Pulmonary: Denied any shortness of breath cough Neurologic denied any new focal deficits All inpatient medications were reviewed and appropriate changes in these medications as dictated in the interval history and assessment and plan. Objective - Vital Signs Vital signs: Vital Signs Temp 98.1 F 09/24/18 11:51 Pulse 53 L 09/24/18 11:51 Resp 17 09/24/18 11:51 BP 121/67 09/24/18 11:51 Pulse Ox 94 L 09/24/18 11:51 Intake & Output 09/23/18 09/24/18 09/24/18 18:59 06:59 18:59 Intake Total 980 120 500 Balance 980 120 500 Weight 128.367 kg Intake: Intake, IV Titration 500 500 Amount Vancomycin 2,000 mg In 500 500 Sodium Chloride 0.9% 500 ml 500 ml @ 167 mls/hr IVPB Q24H [facility] Rx#: [id number] Oral 480 120 Other: Voiding Method Diaper Diaper Diaper Incontinent Incontinent Incontinent # Voids 3 2 - Exam PHYSICAL EXAMINATION: GENERAL: The patient is alert and oriented x3, not in any acute distress. Well developed, well nourished. HEENT: Pupils are round and equally reacting to light. EOMI. No scleral icterus. No conjunctival pallor. Normocephalic, atraumatic. No pharyngeal erythema. No thyromegaly. CARDIOVASCULAR: S1 and S2 present. No murmurs, rubs, or gallops. PULMONARY: Chest is clear to auscultation, no wheezing or crackles. ABDOMEN: Soft, nontender, nondistended, normoactive bowel sounds. No palpable organomegaly. MUSCULOSKELETAL: No joint swelling or deformity. EXTREMITIES: No cyanosis, clubbing, or pedal edema. NEUROLOGICAL: Gross neurological examination did not reveal any focal deficits. SKIN: Right leg circumferential redness with local is of temperature minimal tenderness both legs are lymphedematous, stage III ulcer on the plantar surface of the right great toe redness although improved - Labs CBC & Chem 7: 09/24/18 09:45 09/24/18 09:45 Labs: Abnormal Lab Results - Last 24 Hours (Table) 09/23/18 09/24/18 09/24/18 Range/Units 20:36 01:20 09:45 RBC 3.31 L (3.80-5.40) m/uL Hgb 10.2 L (11.4-16.0) gm/dL Hct 31.6 L (34.0-46.0) % Chloride (98-107) mmol/L BUN (7-17) mg/dL Creatinine (0.52-1.04) mg/dL Glucose (74-99) mg/dL POC Glucose (mg/dL) 200 H 177 H (75-99) mg/dL Calcium (8.4-10.2) mg/dL 09/24/18 09/24/18 09/24/18 Range/Units 09:45 11:29 17:11 RBC (3.80-5.40) m/uL Hgb (11.4-16.0) gm/dL Hct (34.0-46.0) % Chloride 109 H (98-107) mmol/L BUN 25 H (7-17) mg/dL Creatinine 1.10 H (0.52-1.04) mg/dL Glucose 154 H (74-99) mg/dL POC Glucose (mg/dL) 137 H 112 H (75-99) mg/dL Calcium 8.1 L (8.4-10.2) mg/dL Microbiology - Last 24 Hours (Table) 09/21/18 00:04 Urine Culture - Final Urine,Voided Escherichia coli 09/22/18 19:00 Gram Stain - Preliminary Toe - Right First Wound Culture - Preliminary 09/21/18 22:40 Blood Culture - Preliminary Blood No Growth after 48 hours Assessment and Plan Plan: -Sepsis secondary to cellulitis patient does have an ulcer will obtain wound cultures from that vancomycin was started infectious disease evaluated the patient -Chronic lymphedema next and-acute renal failure probably prerenal azotemia, IV fluids will be discontinued will repeat basic metabolic profile tomorrow - hypomagnesemia magnesium will be supplemented -Acute renal failure: Prerenal azotemia patient will be started on IV fluids -Type 2 diabetes mellitus uncontrolled elevated blood sugars secondary to noncompliance patient blood years were low today cutting down the pre-meal insulin as mentioned above -Essential hypertension -obesity sleep apnea. -DVT prophylaxis with subcutaneous heparin
[2018-09-24 20:08] LABS: Glucose,Whole Blood 193 mg/dL (75-99)
[2018-09-24] MEDS: INSULIN DETEMIR (LEVEMIR) 100 UNIT/ML SYR SQ SCH (21:19)
[2018-09-25] MEDS: HEPARIN SODIUM,PORCINE 5,000 UNIT/ML 1 ML VIAL SQ SCH ×2 (00:58→08:33)
[2018-09-25] MEDS: oxyCODONE-APAP 10-325MG 1 EACH TAB PO PRN (05:23)
[2018-09-25 08:09] LABS: Glucose,Whole Blood 131 mg/dL (75-99)
[2018-09-25] MEDS: INSULIN ASPART (NovoLOG) 100 UNIT/ML VIAL SQ SCH ×4 (08:33→12:13)
[2018-09-25] MEDS: ASPIRIN 81 MG PO SCH (08:34)
[2018-09-25] MEDS: CALCITRIOL 0.25 MCG CAP PO SCH (08:34)
[2018-09-25] MEDS: ATORVASTATIN 40 MG TAB PO SCH (08:34)
[2018-09-25] MEDS: CLOPIDOGREL 75 MG TAB PO SCH (08:34)
[2018-09-25] MEDS: DULoxetine HCL 60 MG CAPSULE.DR PO SCH (08:34)
[2018-09-25] MEDS: PREGABALIN 75 MG CAP PO SCH (08:34)
[2018-09-25] MEDS: amLODIPine 10 MG TAB PO SCH (08:34)
[2018-09-25] MEDS: FERROUS SULFATE 325 MG TAB PO SCH (08:34)
[2018-09-25] MEDS: CARVEDILOL 12.5 MG TAB PO SCH (08:34)
[2018-09-25] MEDS: TOPIRAMATE 25 MG TAB PO SCH (09:35)
[2018-09-25 11:17] LABS: Glucose,Whole Blood 114 mg/dL (75-99)
[2018-09-25 11:53] VITALS: BP 118/66; PULSE 94; RESP 22; TEMP 98.6
[2018-09-25] MEDS: VANCOMYCIN 2,000 MG in SODIUM CHLORIDE 0.9% 500 ML 500 ML IVPB SCH (12:10)
--- NOTE | 2018-09-25 14:31 | P.DS ---
Providers Date of admission: 09/23/18 07:08 Attending physician: Alix Crawford Consults: 09/22/18 15:13 Consult Physician Routine Consulting Provider: Garcia Muller Consult Reason/Comments: infected right big toe Do you want consulting provider notified?: Yes Primary care physician: Mere Rodriguez [facility] Course: 63-year-old female was admitted for sepsis secondary to select his of the right leg along with an ulcer in the foot to is no evidence of prostatitis on the x- ray MRI as per infectious disease and patient on vancomycin improving symptoms improving serum creatinine. Patient blood sugars were low with change pre-meal insulin 3 times a day. 09/24/2018 Patient is on IV vancomycin which will be continued for now. Patient blood sugars are on the low normal side and the cutting down her insulin regimen including long-acting as well as female. 09/25/2018 Patient will be discharged today cleared by infectious disease infection did improve a bit wound cultures are not available will not be positive as patient already received antibiotics. Patient will be discharged on empiric Keflex and doxycycline to cover strep and Staphylococcus respectively. Insulin regimen was actually decreased and patient blood sugars are very well controlled at this time because of her diabetes history, I'll start her back on lisinopril cut down the amlodipine patient blood pressures are low normal. PHYSICAL EXAMINATION: GENERAL: The patient is alert and oriented x3, not in any acute distress. Well developed, well nourished. HEENT: Pupils are round and equally reacting to light. EOMI. No scleral icterus. No conjunctival pallor. Normocephalic, atraumatic. No pharyngeal erythema. No thyromegaly. CARDIOVASCULAR: S1 and S2 present. No murmurs, rubs, or gallops. PULMONARY: Chest is clear to auscultation, no wheezing or crackles. ABDOMEN: Soft, nontender, nondistended, normoactive bowel sounds. No palpable organomegaly. MUSCULOSKELETAL: No joint swelling or deformity. EXTREMITIES: No cyanosis, clubbing, or pedal edema. NEUROLOGICAL: Gross neurological examination did not reveal any focal deficits. SKIN: Right leg circumferential redness with local is of temperature minimal tenderness both legs are lymphedematous, stage III ulcer on the plantar surface of the right great toe redness although improved Assessment and Plan Plan: -Sepsis secondary to cellulitis patient does have an ulcer on the plantar surface of the foot, right foot great toe -Chronic lymphedema acute renal failure probably prerenal azotemia, improved now patient appears to have chronic kidney disease stage II from diabetes mellitus and aortic nephropath -Type 2 diabetes mellitus uncontrolled elevated blood sugars secondary to noncompliance -Essential hypertension -obesity sleep apnea. Patient Condition at Discharge: Fair Plan - Discharge Summary Discharge Rx Participant: No New Discharge Prescriptions: New Doxycycline Hyclate 100 mg PO BID #14 tab Cephalexin [Keflex] 500 mg PO Q8HR #21 cap INSULIN ASPART (NovoLOG) [NovoLOG (formulary)] 10 unit SQ AC-TID #0 vial Continue Lisinopril [Zestril] 2.5 mg PO DAILY Changed amLODIPine [Norvasc] 5 mg PO DAILY #0 Discontinued Insulin Aspart [NovoLOG Flexpen] 15 units SQ AC-BRKFST Insulin Aspart [NovoLOG Flexpen] 12 units SQ AC-LUNCH Insulin Aspart [NovoLOG Flexpen] 15 units SQ AC-SUPPER Cefdinir [Omnicef] 300 mg PO BID No Action Clopidogrel Bisulfate [Plavix] 75 mg PO DAILY DULoxetine HCL [Cymbalta] 60 mg PO BID Calcitriol 0.5 mcg PO DAILY Topiramate [Topamax] 25 mg PO BID Ferrous Sulfate [Iron (65 MG Elemental)] 325 mg PO DAILY Atorvastatin [Lipitor] 40 mg PO DAILY Aspirin 81 mg PO DAILY Carvedilol [Coreg*] 12.5 mg PO BID oxyCODONE-APAP 10-325MG [Percocet 10-325 mg] 1 tab PO Q6H PRN #12 tab PRN Reason: Moderate Pain Pregabalin [Lyrica] 75 mg PO TID #9 cap Insulin Glargine [Lantus] 30 unit SQ HS Discharge Medication List Calcitriol 0.5 mcg PO DAILY 09/30/13 [History] Clopidogrel Bisulfate [Plavix] 75 mg PO DAILY 09/30/13 [History] DULoxetine HCL [Cymbalta] 60 mg PO BID 09/30/13 [History] Ferrous Sulfate [Iron (65 MG Elemental)] 325 mg PO DAILY 07/06/16 [History] Topiramate [Topamax] 25 mg PO BID 07/06/16 [History] Aspirin 81 mg PO DAILY 01/06/17 [History] Atorvastatin [Lipitor] 40 mg PO DAILY 01/06/17 [History] Carvedilol [Coreg*] 12.5 mg PO BID 04/06/18 [History] Pregabalin [Lyrica] 75 mg PO TID #9 cap 04/12/18 [Rx] oxyCODONE-APAP 10-325MG [Percocet 10-325 mg] 1 tab PO Q6H PRN #12 tab 04/12/18 [Rx] Insulin Glargine [Lantus] 30 unit SQ HS 06/05/18 [History] Lisinopril [Zestril] 2.5 mg PO DAILY 09/21/18 [History] Cephalexin [Keflex] 500 mg PO Q8HR #21 cap 09/25/18 [Rx] Doxycycline Hyclate 100 mg PO BID #14 tab 09/25/18 [Rx] INSULIN ASPART (NovoLOG) [NovoLOG (formulary)] 10 unit SQ AC-TID #0 vial 09/25/18 [Rx] amLODIPine [Norvasc] 5 mg PO DAILY #0 09/25/18 [Rx] Follow up Appointment(s)/Referral(s): Mere Rodriguez DO [Primary Care Provider] - 1-2 days [facility], [NON-STAFF] - 1 Week Garcia Muller MD [STAFF PHYSICIAN] - 1 Week
--- NOTE | 2018-09-25 17:54 | PN ---
PROGRESS NOTE DATE OF SERVICE: 09/25/2018. REASON FOR FOLLOWUP: Right lower extremity cellulitis with right big toe wound. INTERVAL HISTORY: The patient is currently afebrile. Patient has been breathing comfortably. The patient denies having any chest pain, no shortness of breath or cough. No nausea. No vomiting. No abdominal pain. Pain in the right big toe. No pain swelling or any drainage. PHYSICAL EXAMINATION: Blood pressure is 118/66, pulse of 94, temperature 98.6. He is 93% on room air. General description is a middle-aged female lying in bed in no distress. Respiratory system: Unlabored breathing. Clear to auscultation anteriorly. Heart S1, S2. Regular rate and rhythm. ABDOMEN: Soft, no tenderness. Right leg swelling persists. Redness has resolved. LAB: Wound cultures have been negative so far. DIAGNOSTIC IMPRESSION AND PLAN: Patient with acute right lower extremity cellulitis. The patient did have diffuse swelling and redness. The patient has shown overall clinical improvement on vancomycin. Antibiotic will be switched over to doxycycline and Keflex combination for about a week. Local care with Aquacel dressing and follow up in the office in 1 week. Questions and concerns were answered. MMODL / IJN: [id number] /
[2018-09-26] MEDS ORDERED: VANCOMYCIN TROUGH DUE 1 EACH MISC MISCELLANE ONE (11:00)
== END 2018-09-25 15:15 | disposition home health service (06) | DRG 872 ==
LOC: EC 21:26 → 3NMEDONC 23:57 → OBSVTOIN 09-23 07:08
PROVIDERS: ADMIT Hospitalist; ATTEND Hospitalist
DX: A41.9 Sepsis, unspecified organism (principal); I69.354 Hemiplegia and hemiparesis following cerebral infarction affecting left non-dominant side; N17.9 Acute kidney failure, unspecified; L03.115 Cellulitis of right lower limb; Z68.41 Body mass index [BMI] 40.0-44.9, adult; E86.0 Dehydration; K21.9 Gastro-esophageal reflux disease without esophagitis; M06.9 Rheumatoid arthritis, unspecified; G47.30 Sleep apnea, unspecified; F32.9 Major depressive disorder, single episode, unspecified; E11.22 Type 2 diabetes mellitus with diabetic chronic kidney disease; I89.0 Lymphedema, not elsewhere classified; N18.2 Chronic kidney disease, stage 2 (mild); E11.65 Type 2 diabetes mellitus with hyperglycemia; I12.9 Hypertensive chronic kidney disease with stage 1 through stage 4 chronic kidney disease, or unspecified chronic kidney disease; E11.621 Type 2 diabetes mellitus with foot ulcer; L97.519 Non-pressure chronic ulcer of other part of right foot with unspecified severity; E66.9 Obesity, unspecified; E83.42 Hypomagnesemia; Z98.42 Cataract extraction status, left eye; Z98.41 Cataract extraction status, right eye; Z79.2 Long term (current) use of antibiotics; Z79.02 Long term (current) use of antithrombotics/antiplatelets; Z79.4 Long term (current) use of insulin; Z79.899 Other long term (current) drug therapy; Z79.891 Long term (current) use of opiate analgesic; Z79.82 Long term (current) use of aspirin; Z91.19 Patient's noncompliance with other medical treatment and regimen; Z86.19 Personal history of other infectious and parasitic diseases; Z98.84 Bariatric surgery status; Z87.898 Personal history of other specified conditions; Z82.49 Family history of ischemic heart disease and other diseases of the circulatory system; Z80.1 Family history of malignant neoplasm of trachea, bronchus and lung; Z83.3 Family history of diabetes mellitus
CPT/HCPCS: 36415; 71046; 80048; 80053; 81001; 82009; 82550; 82565; 82803; 83605; 83735; 84100; 84484; 85025; 85027; 85610; 85730; 87040; 87070; 87077; 87086; 87186; 87205; 87502; 93005; 94760; 96361; 96365; 99285

== ENCOUNTER 2019-09-29 14:44 | Inpatient (IN) | payer MEDICARE ==
[2019-09-29] MEDS ORDERED: SODIUM CHLORIDE 0.9% 1,000 ML IV STA (14:57)
[2019-09-29] MEDS ORDERED: MORPHINE SULFATE 4 MG/ML SYRINGE IVP STA (14:57)
[2019-09-29] MEDS ORDERED: LABETALOL 5 MG/ML VIAL MDV IVP STA (14:57)
[2019-09-29 15:18] LABS: Basophils % (A) 0 %; Eosinophils # (A) 0.2 k/uL (0-0.7); Eosinophils % (A) 1 %; HCT 43.8 % (34.0-46.0); HGB 13.6 gm/dL (11.4-16.0); Hypochromasia Slight; Lymphocytes # (A) 0.4 k/uL (1.0-4.8); Lymphocytes % (A) 3 %; MCH 30.3 pg (25.0-35.0); MCHC 30.9 g/dL (31.0-37.0); Mean Platelet Volume 7.5; Monocytes # (A) 0.3 k/uL (0-1.0); Monocytes % (A) 2 %; Neutrophils # (A) 9.9 k/uL (1.3-7.7); Neutrophils % (A) 93 %; Platelet Count 191 k/uL (150-450); RBC 4.48 m/uL (3.80-5.40); RDW 13.2 % (11.5-15.5); WBC 10.7 k/uL (3.8-10.6)
[2019-09-29 15:24] LABS: Albumin 4.2 g/dL (3.5-5.0); Calcium 9.2 mg/dL (8.4-10.2); Magnesium 1.8 mg/dL (1.6-2.3); Potassium 4.6 mmol/L (3.5-5.1); Total Bilirubin 2.1 mg/dL (0.2-1.3); Total Protein 7.8 g/dL (6.3-8.2)
[2019-09-29 15:28] LABS: INR 0.9 (<1.2); Partial Thromboplastin Time 24.3 sec (22.0-30.0); Prothrombin Time 9.8 sec (9.0-12.0)
--- NOTE | 2019-09-29 15:57 | ED ---
Chest Pain HPI - General Chief Complaint: Chest Pain Stated Complaint: chest pain Time Seen by Provider: 09/29/19 14:57 Source: patient, RN notes reviewed, old records reviewed Mode of arrival: ambulatory Limitations: no limitations - History of Present Illness Initial Comments: This is a 64-year-old female DF for evaluation of severe sudden onset of chest pain abdominal pain epigastric pain severe radiating to back. Positive nausea vomiting significant other blood pressure sweaty diaphoresis and nausea. No prior history of similar complaint patient does have elevated blood pressure did take her blood pressure medication today. Pain is currently severe MD Complaint: chest pain -: hour(s) Onset: during rest, during exertion Pain Location: substernal, epigastric Severity: severe Severity scale (1-10): 10 Quality: tightness Consistency: constant Improves With: nothing Worsens With: nothing Anginal Symptoms: nausea, diaphoresis, dyspnea Other Symptoms: palpitations Treatments Prior to Arrival: none - Related Data Home Medications Medication Instructions Recorded Confirmed Clopidogrel Bisulfate [Plavix] 75 mg PO DAILY 09/30/13 09/21/18 DULoxetine HCL [Cymbalta] 60 mg PO BID 09/30/13 09/21/18 calcitrioL [Calcitriol] 0.5 mcg PO DAILY 09/30/13 09/21/18 Ferrous Sulfate [Iron (65 MG 325 mg PO DAILY 07/06/16 09/21/18 Elemental)] Topiramate [Topamax] 25 mg PO BID 07/06/16 09/21/18 Aspirin 81 mg PO DAILY 01/06/17 09/21/18 Atorvastatin [Lipitor] 40 mg PO DAILY 01/06/17 09/21/18 carvediloL [Coreg*] 12.5 mg PO BID 04/06/18 09/21/18 Insulin Glargine [Lantus] 30 unit SQ HS 06/05/18 09/21/18 lisinopriL [Zestril] 2.5 mg PO DAILY 09/21/18 09/21/18 Previous Rx's Medication Instructions Recorded Pregabalin [Lyrica] 75 mg PO TID #9 cap 04/12/18 oxyCODONE-APAP 10-325MG [Percocet 1 tab PO Q6H PRN #12 tab 04/12/18 10-325 mg] Cephalexin [Keflex] 500 mg PO Q8HR #21 cap 09/25/18 Doxycycline Hyclate 100 mg PO BID #14 tab 09/25/18 INSULIN ASPART (NovoLOG) [NovoLOG 10 unit SQ AC-TID #0 vial 09/25/18 (formulary)] amLODIPine [Norvasc] 5 mg PO DAILY #0 09/25/18 Allergies Allergy/AdvReac Type Severity Reaction Status Date / Time No Known Allergies Allergy Verified 09/29/19 14:49 Review of Systems ROS Statement: Those systems with pertinent positive or pertinent negative responses have been documented in the HPI. ROS Other: All systems not noted in ROS Statement are negative. 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 lt side weaker than rt", vertigo, neck pain, mini stroke nov 2016. no cpap used. right big toe ulcer. 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 Date of last positivie culture/infection: 02/24/19 MDRO Source:: Left Ear Past Surgical History: Breast Surgery Additional Past Surgical History / Comment(s): breast biopsy, gastric sleeve 11/07/14, colonoscopy 04/14/14 bilateral cataract surgery Past Anesthesia/Blood Transfusion Reactions: Motion Sickness Past Psychological History: Depression Smoking Status: Never smoker Past Alcohol Use History: None Reported Past Drug Use History: None Reported - Past Family History Mother Family Medical History: Diabetes Mellitus Additional Family Medical History / Comment(s): heart attack, Brother of rashaad ng cancer 04/19/14 Father Family Medical History: Cancer Additional Family Medical History / Comment(s): lung cancer Brother(s) Family Medical History: Cancer Additional Family Medical History / Comment(s): LUNG General Exam Limitations: no limitations General appearance: alert, anxious, in distress Head exam: Present: atraumatic, normocephalic, normal inspection Eye exam: Present: normal appearance, PERRL, EOMI. Absent: scleral icterus, conjunctival injection, periorbital swelling ENT exam: Present: normal exam, mucous membranes moist Neck exam: Present: normal inspection. Absent: tenderness, meningismus, lymphadenopathy Respiratory exam: Present: normal lung sounds bilaterally. Absent: respiratory distress, wheezes, rales, rhonchi, stridor Cardiovascular Exam: Present: regular rate, normal rhythm, normal heart sounds. Absent: systolic murmur, diastolic murmur, rubs, gallop, clicks GI/Abdominal exam: Present: soft, normal bowel sounds. Absent: distended, tenderness, guarding, rebound, rigid Extremities exam: Present: normal inspection, full ROM, normal capillary refill. Absent: tenderness, pedal edema, joint swelling, calf tenderness Back exam: Present: normal inspection Neurological exam: Present: alert, oriented X3, CN II-XII intact Psychiatric exam: Present: normal affect, normal mood Skin exam: Present: warm, dry, intact, normal color. Absent: rash Course Vital Signs 09/29/19 09/29/19 09/29/19 14:50 15:31 16:43 Temperature 98.3 F Pulse Rate 76 87 100 Respiratory 18 18 18 Rate Blood Pressure 198/93 188/97 162/80 O2 Sat by Pulse 99 97 100 Oximetry - Reevaluation(s) Reevaluation #1: 09/29/19 17:03 Medical records reviewed Reevaluation #2: 09/29/19 17:03 Patient does have pain control Reevaluation #3: 09/29/19 17:03 Patient informed of findings and results questions answered - Consultations Consultation #1: Spoke with Dr. Crawford who agree to admit this patient Chest Pain MDM - MDM 64 female DF for evaluation of elevated blood pressure chest pain patient has gallstone pancreatitis will continue to trend troponin CT chest negative for dissection Disposition Clinical Impression: Morbid obesity, Gallstone pancreatitis, Chest pain Disposition: ADMITTED IP TO THIS [facility] Condition: Fair Referrals: Mere Rodriguez DO [Primary Care Provider] - 1-2 days
--- NOTE | 2019-09-29 16:53 | CT ---
EXAMINATION TYPE: CT angio chest DATE OF EXAM: 09/29/2019 COMPARISON: None HISTORY: Left sided chest pain. CT DLP: 709.3 mGycm Automated exposure control for dose reduction was used. CONTRAST: Performed with IV Contrast, patient injected with 80 mL of Isovue 370. There are 3-D post processed images. Lung bases are clear of consolidation. There is moderate hiatal hernia. There is no pericardial effus ion. Heart appears slightly enlarged. There is no mediastinal adenopathy. There are no hilar masses. There is normal contrast opacification of the pulmonary arteries. I see no filling defect. There is some spurring in the thoracic spine. St ernum is intact. The ribs appear intact. IMPRESSION: No evidence of pulmonary embolism. Hiatal hernia. No acute lung disease. Mild subsegmental atelectasi s at the lung bases.
[2019-09-29] MEDS ORDERED: AMPICILLIN-SULBACTAM 3 GM in SODIUM CHLORIDE 0.9% 100 ML IVPB STA (17:00)
[2019-09-29] MEDS ORDERED: ONDANSETRON 4 MG/2 ML VIAL IVP STA (17:00)
[2019-09-29] MEDS ORDERED: ASPIRIN 81 MG PO STA (17:00)
[2019-09-29] MEDS ORDERED: NITROGLYCERIN SL TABS 0.4 MG TAB SUBLINGUAL PRN (17:00)
--- NOTE | 2019-09-29 18:09 | US ---
EXAMINATION TYPE: US gallbladder DATE OF EXAM: 09/29/2019 COMPARISON: NONE CLINICAL HISTORY: pain. EXAM MEASUREMENTS: Liver Length: 16.5 cm Gallbladder Wall: 0.3 cm CBD: 0.6 cm Right Kidney: 12.7 x 4.5 x 4.5 cm Morbidly obese patient, unable to cooperate with examiner with severe overlying bowel gas. Pancreas: Obscured by bowel gas Liver: wnl Gallbladder: possible sludge and non-shadowing stones Evidence for sonographic Francis's sign: no CBD: not visualized with certainty Right Kidney: limited visualization IMPRESSION: There is echogenic bile and multiple small gallstones. Intrahepatic bile ducts are not dilated. Gallb ladder is mildly dilated and measures 5 cm in diameter suggestive of gallbladder dysfunction or sabi cystitis.
[2019-09-29 19:48] LABS: Glucose,Whole Blood 158 mg/dL (75-99)
[2019-09-29] MEDS: INSULIN ASPART (NovoLOG) 100 UNIT/ML VIAL SQ SCH (21:39)
[2019-09-29] MEDS: DULoxetine HCL 60 MG CAPSULE.DR PO SCH (21:44)
[2019-09-29] MEDS: carvediloL 12.5 MG TAB PO SCH (21:44)
[2019-09-29] MEDS: TOPIRAMATE 25 MG TAB PO SCH (21:44)
[2019-09-29] MEDS: PREGABALIN 75 MG CAP PO SCH (21:44)
[2019-09-29] MEDS: INSULIN DETEMIR (LEVEMIR) 100 UNIT/ML SYR SQ SCH (21:44)
[2019-09-29] MEDS ORDERED: ACETAMINOPHEN TAB 325 MG TAB PO PRN (22:36)
[2019-09-30] MEDS ORDERED: AMPICILLIN-SULBACTAM 3 GM in SODIUM CHLORIDE 0.9% 100 ML IVPB SCH (02:00)
[2019-09-30] MEDS: oxyCODONE-APAP 10-325MG 1 EACH TAB PO PRN ×3 (03:22→21:31)
[2019-09-30 04:45] LABS: Cholesterol 237 mg/dL (<200); HDL Cholesterol 53 mg/dL (40-60); LDL Cholesterol,Calculated 145 mg/dL (0-99); Triglycerides 193 mg/dL (<150)
[2019-09-30 06:09] LABS: Glucose,Whole Blood 174 mg/dL (75-99)
[2019-09-30] MEDS: INSULIN ASPART (NovoLOG) 100 UNIT/ML VIAL SQ SCH ×4 (06:37→20:53)
[2019-09-30] MEDS: carvediloL 12.5 MG TAB PO SCH ×2 (06:38→17:59)
[2019-09-30] MEDS: PIPERACILLIN-TAZOBACTAM 3.375 GM in SODIUM CHLORIDE 0.9% 100 ML IVPB SCH ×3 (08:42→23:54)
[2019-09-30] MEDS: FERROUS SULFATE 325 MG TAB PO SCH (08:43)
[2019-09-30] MEDS: TOPIRAMATE 25 MG TAB PO SCH ×2 (08:43→20:31)
[2019-09-30] MEDS: ATORVASTATIN 40 MG TAB PO SCH (08:43)
[2019-09-30] MEDS: PREGABALIN 75 MG CAP PO SCH ×2 (08:43→20:31)
[2019-09-30] MEDS: ASPIRIN 81 MG PO SCH (08:43)
[2019-09-30] MEDS: amLODIPine 10 MG TAB PO SCH (08:43)
[2019-09-30] MEDS: DULoxetine HCL 60 MG CAPSULE.DR PO SCH ×2 (08:43→20:31)
--- NOTE | 2019-09-30 08:57 | P.HPIM ---
History of Present Illness This is a pleasant 64 years old female with past medical history of morbid obesity, obstructive sleep apnea, previous strokes with left-sided hemiparesis, diabetes mellitus, chronic lower extremity edema, hypertension, rheumatoid a rthritis, gastroesophageal reflux disease, chronic kidney disease, previous stage II coccygeal ulcer, depression, previous gastric sleeve bypass in 2015. She is a patient of the [facility], also she sees Dr. Martinez for stroke and Dr. Samano for her diabetes. Patient presents because of upper abdominal pain, more on the left side than the right side but patient has previous gastric sleeve surgery, then is below her left breast at the maximum point, nonradiating, felt like pressure was 7/10 in severity, started about one hour and a half before, to emergency room associated with nausea but no vomiting. Patient has regular bowel movement yesterday morning when she took Pepto-Bismol. She felt feverish with chills. She has no chest pain or dyspnea. No coughing. She denies smoking or alcohol use. She denies suicidal or signs symptoms of depression, no hallucination. on admission she has a fever 101.6. Personal vitals are stable. Labs showed leukocytosis of 10.7 K, INR is normal, creatinine is slightly elevated at 1.1, rest of BMP is unremarkable. Liver enzymes are elevated with AST 889, ALT 325, serial troponins are negative with less than 0.012. Lipase is elevated at 2815. Bilirubin is elevated 2.1 Gallbladder ultrasound, multiple gallstones but no dilated intrahepatic bile duct. Gallbladder is markedly dilated and measures 5 cm in centimeter suggestive of gallbladder dysfunction or cholecystitis EKG showing normal sinus rhythm at [address]-T changes, possible LVH with QTC 441, Chest CTA: No evidence of pulmonary embolism. Hiatal hernia, atelectasis An emergency room patient was started on Unasyn and aspirin 324 mg. 1 L of normal saline and a one-time dose of IV labetalol GI and surgery team or consulted from ER Review of Systems CONSTITUTIONAL: No fever, no malaise, no fatigue. HEENT: No recent visual problems or hearing problems. Denied any sore throat. CARDIOVASCULAR: No orthopnea, PND, no palpitations, no syncope. PULMONARY: No shortness of breath, no cough, no hemoptysis. GASTROINTESTINAL: No diarrhea, no nausea, no vomiting, no abdominal pain. Normoactive bowel sounds. NEUROLOGICAL: No headaches, no weakness, no numbness. HEMATOLOGICAL: Denies any bleeding or petechiae. GENITOURINARY: Denies any burning micturition, frequency, or urgency. MUSCULOSKELETAL/RHEUMATOLOGICAL: Denies any joint pain, swelling, or any muscle pain. ENDOCRINE: Denies any polyuria or polydipsia. ROS unobtainable: due to endotracheal tube Past Medical History Past Medical History: CVA/TIA, Diabetes Mellitus, GERD/Reflux, Hypertension, Renal Disease, Rheumatoid Arthritis (RA), Sleep Apnea/CPAP/BIPAP Additional Past Medical History / Comment(s): "ckd stage lll", broken Lt foot 2011-no sx, stroke 2004 affected non dominant lt side . lt side weaker than rt", vertigo, neck pain, mini stroke nov 2016. no cpap used. right big toe ulcer. 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 Date of last positivie culture/infection: 02/24/19 MDRO Source:: Left Ear Past Surgical History: Breast Surgery Additional Past Surgical History / Comment(s): breast biopsy, gastric sleeve 11/07/14, colonoscopy 04/14/14 bilateral cataract surgery Past Anesthesia/Blood Transfusion Reactions: Motion Sickness Past Psychological History: Depression Additional Psychological History / Comment(s): and lives with family home with her . 2 adult children. No tobacco or alcohol use. No experience. No international travel. Pet cats at home they are not new. Used to work in a care of handicapped persons Smoking Status: Never smoker Past Alcohol Use History: None Reported Past Drug Use History: None Reported - Past Family History Mother Family Medical History: Diabetes Mellitus Additional Family Medical History / Comment(s): heart attack, Brother of lung cancer 04/19/14 Father Family Medical History: Cancer Additional Family Medical History / Comment(s): lung cancer Brother(s) Family Medical History: Cancer Additional Family Medical History / Comment(s): LUNG Medications and Allergies Home Medications Medication Instructions Recorded Confirmed Type Clopidogrel Bisulfate [Plavix] 75 mg PO DAILY 09/30/13 09/29/19 History DULoxetine HCL [Cymbalta] 60 mg PO BID 09/30/13 09/29/19 History calcitrioL [Calcitriol] 0.5 mcg PO DAILY 09/30/13 09/29/19 History Ferrous Sulfate [Iron (65 MG 325 mg PO DAILY 07/06/16 09/29/19 History Elemental)] Topiramate [Topamax] 25 mg PO BID 07/06/16 09/29/19 History Aspirin 81 mg PO DAILY 01/06/17 09/29/19 History Atorvastatin [Lipitor] 40 mg PO DAILY 01/06/17 09/29/19 History carvediloL [Coreg*] 12.5 mg PO BID 04/06/18 09/29/19 History Insulin Glargine [Lantus] 32 unit SQ HS 06/05/18 09/29/19 History lisinopriL [Zestril] 2.5 mg PO DAILY 09/21/18 09/29/19 History INSULIN ASPART (NovoLOG) [NovoLOG See Protocol SQ AC-TID 09/29/19 09/29/19 History (formulary)] Pregabalin [Lyrica] 75 mg PO BID 09/29/19 09/29/19 History amLODIPine [Norvasc] 10 mg PO DAILY 09/29/19 09/29/19 History oxyCODONE-APAP 10-325MG [Percocet 1 tab PO QID PRN 09/29/19 09/29/19 History 10-325 mg] Allergies Allergy/AdvReac Type Severity Reaction Status Date / Time No Known Allergies Allergy Verified 09/29/19 17:53 Physical Exam Vitals: Vital Signs Temp Pulse Pulse Pulse Resp BP BP 09/30/19 03:32 98.9 F 74 16 136/62 09/30/19 00:27 99.5 F 09/29/19 23:28 100.4 F H 95 17 171/71 09/29/19 19:57 98.6 F 95 17 149/69 09/29/19 19:02 101.6 F H 91 18 09/29/19 17:47 98.6 F 96 18 167/86 09/29/19 16:43 100 18 162/80 09/29/19 15:31 87 18 188/97 09/29/19 14:50 98.3 F 76 18 198/93 Pulse Ox 09/30/19 03:32 96 09/30/19 00:27 09/29/19 23:28 97 09/29/19 19:57 98 09/29/19 19:02 92 L 09/29/19 17:47 96 09/29/19 16:43 100 09/29/19 15:31 97 09/29/19 14:50 99 Intake and Output 09/29/19 09/30/19 09/30/19 22:59 06:59 14:59 Intake Total 480 Balance 480 Intake: Oral 480 Other: Voiding Method Diaper Diaper # Voids 1 Weight 123.377 kg 106.5 kg GENERAL: The patient is alert and oriented x3, not in any acute distress. Well developed, well nourished. HEENT: Pupils are round and equally reacting to light. EOMI. No scleral icterus. No conjunctival pallor. Normocephalic, atraumatic. No pharyngeal erythema. No thyromegaly. CARDIOVASCULAR: S1 and S2 present. No murmurs, rubs, or gallops. PULMONARY: Chest is clear to auscultation, no wheezing or crackles. -ABDOMEN: Soft, upper abdominal tenderness, more on the left upper quadrant with no guarding or rebound tenderness, nondistended, normoactive bowel sounds. No palpable organomegaly. MUSCULOSKELETAL: No joint swelling or deformity. EXTREMITIES: No cyanosis, clubbing, or pedal edema. NEUROLOGICAL: Gross neurological examination did not reveal any focal deficits. SKIN: No rashes. No petechiae Results CBC & Chem 7: 09/29/19 15:08 09/29/19 15:08 Labs: Abnormal Lab Results - Last 24 Hours (Table) 09/29/19 09/29/19 09/29/19 Range/Units 15:08 15:08 15:08 WBC 10.7 H (3.8-10.6) k/uL MCHC 30.9 L (31.0-37.0) g/dL Neutrophils # 9.9 H (1.3-7.7) k/uL Lymphocytes # 0.4 L (1.0-4.8) k/uL BUN 23 H (7-17) mg/dL Creatinine 1.13 H (0.52-1.04) mg/dL Glucose 183 H (74-99) mg/dL POC Glucose (mg/dL) (75-99) mg/dL Total Bilirubin 2.1 H (0.2-1.3) mg/dL AST 889 H (14-36) U/L ALT 325 H (4-34) U/L Alkaline Phosphatase 208 H (38-126) U/L Triglycerides 193 H (<150) mg/dL Cholesterol 237 H (<200) mg/dL LDL Cholesterol, Calc 145 H (0-99) mg/dL Lipase 2815 H (23-300) U/L 09/29/19 09/30/19 Range/Units 19:47 06:08 WBC (3.8-10.6) k/uL MCHC (31.0-37.0) g/dL Neutrophils # (1.3-7.7) k/uL Lymphocytes # (1.0-4.8) k/uL BUN (7-17) mg/dL Creatinine (0.52-1.04) mg/dL Glucose (74-99) mg/dL POC Glucose (mg/dL) 158 H 174 H (75-99) mg/dL Total Bilirubin (0.2-1.3) mg/dL AST (14-36) U/L ALT (4-34) U/L Alkaline Phosphatase (38-126) U/L Triglycerides (<150) mg/dL Cholesterol (<200) mg/dL LDL Cholesterol, Calc (0-99) mg/dL Lipase (23-300) U/L Thrombosis Risk Factor Assmnt - Choose All That Apply Any of the Below Risk Factors Present?: Yes Each Factor Represents 1 point: Obesity (BMI >25), Swollen legs (current) Other Risk Factors: Yes Each Risk Factor Represents 2 Points: Age 61-74 years Other congenital or acquired thrombophilia - If yes, enter type in comment: No Thrombosis Risk Factor Assessment Total Risk Factor Score: 4 Thrombosis Risk Factor Assessment Level: Moderate Risk Assessment and Plan Assessment: Acute pancreatitis Elevated liver enzymes suspicious for gallstone pancreatitis versus other Ascending cholangitis Sepsis with positive SIRS with fever and leukocytosis. Dilated gallbladder suspicious for gallbladder dysfunction or cholecystitis Hiatal hernia Morbid obesity Obstructive sleep apnea previous stroke with left hemiparesis Diabetes mellitus Chronic lower extremity edema Hypertension Rheumatoid arthritis GERD Chronic kidney disease Previous stage II coccygeal Depression previous gastric sleeve surgery Plan: This is a pleasant 64 years old female who presents with chest pain, sepsis and pancreatitis. Change antibiotics to Zosyn. Blood culture. Follow-up recommendation by GI and surgery teams Labs and medication were reviewed.. Continue same treatment. Continue with symptomatic treatment. Resume home medication. Monitor lytes and vitals. DVT and GI prophylaxis. Further recommendations of the clinical course of the patient DVT prophylaxis: Subcutaneous heparin GI Prophylaxis: Ppi PT/OT: Pending Prognosis is guarded
[2019-09-30] MEDS ORDERED: PANTOPRAZOLE 40 MG/10 ML VIAL IVP SCH (09:00)
[2019-09-30] MEDS ORDERED: CLOPIDOGREL 75 MG TAB PO SCH (09:00)
[2019-09-30] MEDS ORDERED: ASPIRIN 325 MG TAB PO SCH (09:00)
[2019-09-30 09:05] LABS: Basophils % (A) 0 %; Eosinophils # (A) 0.1 k/uL (0-0.7); Eosinophils % (A) 0 %; HCT 37.8 % (34.0-46.0); HGB 11.3 gm/dL (11.4-16.0); Hypochromasia Marked; Lymphocytes # (A) 0.5 k/uL (1.0-4.8); Lymphocytes % (A) 4 %; MCH 30.3 pg (25.0-35.0); MCV 101.2 fL (80.0-100.0); Monocytes # (A) 0.6 k/uL (0-1.0); Monocytes % (A) 5 %; Neutrophils # (A) 11.6 k/uL (1.3-7.7); Neutrophils % (A) 90 %; Platelet Count 197 k/uL (150-450); RBC 3.73 m/uL (3.80-5.40); RDW 13.2 % (11.5-15.5); WBC 12.9 k/uL (3.8-10.6)
[2019-09-30 09:07] LABS: Calcium 7.9 mg/dL (8.4-10.2); Potassium 4.7 mmol/L (3.5-5.1); Total Bilirubin 3.6 mg/dL (0.2-1.3); Total Protein 5.8 g/dL (6.3-8.2)
[2019-09-30 12:06] LABS: Glucose,Whole Blood 153 mg/dL (75-99)
--- NOTE | 2019-09-30 16:11 | P.GSCN ---
History of Present Illness Consult date: 09/30/19 History of present illness: DATE OF ADMISSION: 11/07/2013. REASON FOR ADMISSION: Sleeve gastrectomy. HISTORY OF PRESENT ILLNESS: Alma Vivar is a 64-year-old female status post sleeve gastrectomy 11/07/2013. She has been lost to follow-up for over 5 years from the bariatric center. She denies any bariatric care being performed since that time. She presents to the hospital after she developed acute onset epigastric and left upper quadrant abdominal pain within the last 1-[address] chest as well as cardiac was performed. Laboratory work demonstrated elevated LFTs including elevated total bilirubin and features consistent with gallstone pancreatitis with lipase over 1999. She reports her abdominal pain is not as severe today. No reports of nausea or vomiting today. At her height of 5 feet 10 inches, her prior weight was 343 pounds. Her body mass index was approximately 49.4. Her ideal body weight for her height is 167 pounds. Today she is 234 pounds. She has lost 109 pounds in 6 years. PAST MEDICAL HISTORY: 1. Cardiomyopathy. 2. Iron-deficiency anemia. 3. Diabetes type 2. 4. Hypertension. 5. Fibromyalgia. 6. Chronic pain syndrome. 7. Bladder urgency. 8. Renal insufficiency. 9. Gastroesophageal reflux disease. 10. Hiatal hernia. 11. Osteoarthritis. 12. Gout. 13. Depression. 14. Prior history of stroke. PAST SURGICAL HISTORY: 1. Denies any abdominal surgeries. 2. Dilatation and curettage. 3. Left breast biopsy. 4. Left broken foot 2011. 5. Upper endoscopy. 6. Sleeve gastrectomy, 2013 MEDICATIONS: Home Medications Medication Instructions Recorded Confirmed Clopidogrel Bisulfate [Plavix] 75 mg PO DAILY 09/30/13 09/29/19 DULoxetine HCL [Cymbalta] 60 mg PO BID 09/30/13 09/29/19 calcitrioL [Calcitriol] 0.5 mcg PO DAILY 09/30/13 09/29/19 Ferrous Sulfate [Iron (65 MG 325 mg PO DAILY 07/06/16 09/29/19 Elemental)] Topiramate [Topamax] 25 mg PO BID 07/06/16 09/29/19 Aspirin 81 mg PO DAILY 01/06/17 09/29/19 Atorvastatin [Lipitor] 40 mg PO DAILY 01/06/17 09/29/19 carvediloL [Coreg*] 12.5 mg PO BID 04/06/18 09/29/19 Insulin Glargine [Lantus] 32 unit SQ HS 06/05/18 09/29/19 lisinopriL [Zestril] 2.5 mg PO DAILY 09/21/18 09/29/19 INSULIN ASPART (NovoLOG) [NovoLOG See Protocol SQ AC-TID 09/29/19 09/29/19 (formulary)] Pregabalin [Lyrica] 75 mg PO BID 09/29/19 09/29/19 amLODIPine [Norvasc] 10 mg PO DAILY 09/29/19 09/29/19 oxyCODONE-APAP 10-325MG [Percocet 1 tab PO QID PRN 09/29/19 09/29/19 10-325 mg] ALLERGIES: Denies any latex or drug allergies. SOCIAL HISTORY: Denies any illegal drug use. Denies any alcohol use. Lifelong nontobacco user. She has a high-school education. She is . She is currently on a pain contract with her pain medications. FAMILY HISTORY: Denies any personal or family history of gastrointestinal malignancies. She does have a family history of lung cancer. She denies any Crohn disease, DVTs or pulmonary emboli in her family. She denies any lupus within her family as well. REVIEW OF SYSTEMS: CONSTITUTIONAL: At her height of 5 feet 10 inches, her P bariatric weight was 343 pounds. Her body mass index was approximately 49.4. Her ideal body weight for her height is 167 pounds. Today she is 234 pounds. She has lost 109 pounds in 6 years. HEENT: Has diabetic retinopathy. Has caps, crowns including loose teeth. Denies any hearing problems. ENDOCRINE: Has been diabetic over 25+ years. She is currently insulin dependent. Previously on insulin pump now off since weight loss. CARDIOVASCULAR: History of stroke in 2007. RESPIRATORY: Denies any asthma or obstructive sleep apnea at present. She does report inability to lie flat for which she must sleep in a chair upright for rest. GI: Denies any blood in stools or change in bowel habits. : Has increased urinary frequency at night. MUSCULOSKELETAL: Diffuse osteoarthritis including myalgias and back pain. Has numbness and tingling. Has physical limitations. Again, sees a provider for her chronic pain syndrome. PSYCH: Has depression without suicidal ideation. HEMATOLOGIC: Denies any abnormal bleeding or bruising. NEURO: Prior history of a stroke, as described. No reports of seizure disorder. PHYSICAL EXAM: VITAL SIGNS: 5 feet 10 inches, 343 pounds, BMI 49.3 now down to 33.7 GENERAL: Well-developed pleasant female in no acute distress. HEENT: No scleral icterus. Extraocular movements grossly intact. Moist buccal mucosa. NECK: Supple without lymphadenopathy. CHEST: Unlabored respirations. Equal bilateral excursions. CARDIOVASCULAR: 2+ distal pulses ABDOMEN: Obese, soft, mild tenderness left upper quadrant MUSCULOSKELETAL: No clubbing, cyanosis. NEURO: No focal or lateralizing signs. Cranial nerves 2 through 12 grossly within normal limits. PSYCH: Alert and oriented to person place and time. SKIN: Well perfused. Good skin turgor. LABS: Total bilirubin elevated at 2.1-3.6. AST down from 889-341, ALT down 325- 254. Lipase down 2815 to 292. WBC elevated from 10.7-12.9. STUDIES: CT of the chest independently reviewed demonstrating moderate size hiatal hernia and without pulmonary embolism. Previous CT of the abdomen and pelvis in 2015 review without any hiatal hernia at that time. EKG: With multiple abnormalities including possible anterior infarct ASSESSMENT: 1. Gallstone pancreatitis 2. History of super morbid obesity BMI of 49 down to 33.7 2. Fibromyalgia. 3. Chronic pain syndrome. 4. Diabetes type 2 insulin dependent. 5. Cardiomyopathy. 6. History of stroke. 7. Iron-deficiency anemia. 8. Depression. 9. Chronic pain syndrome. 10. Renal insufficiency. 11. Status post sleeve gastrectomy PLAN: 1. Review of her medication list, patient had Plavix today. Will need to be off Plavix 5-7 days prior to any surgical intervention. 2. She presents with elevated LFTs including risk of choledocholithiasis. GI following with MRCP obtained. 3. Will need cardiac risk assessment 4. Low-fat diet when tolerated 5. Options for outpatient cholecystectomy described with patient recent Plavix administered today 6. ERCP may be of benefit should liver enzymes and bilirubin continued to elevate. 7. Recommend bariatric labs 8. Recommend antibiotic management for gallstone pancreatitis and presentation of leukocytosis Thank you for this consultation Past Medical History Past Medical History: CVA/TIA, Diabetes Mellitus, GERD/Reflux, Hypertension, Renal Disease, Rheumatoid Arthritis (RA), Sleep Apnea/CPAP/BIPAP Additional Past Medical History / Comment(s): "ckd stage lll", broken Lt foot 2011-no sx, stroke 2004 affected non dominant lt side . lt side weaker than rt", vertigo, neck pain, mini stroke nov 2016. no cpap used. right big toe ulcer. 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 Year Discovered:: 02/24/19 MDRO Source:: Left Ear Past Surgical History: Breast Surgery Additional Past Surgical History / Comment(s): breast biopsy, gastric sleeve 11/07/14, colonoscopy 04/14/14 bilateral cataract surgery Past Anesthesia/Blood Transfusion Reactions: Motion Sickness Past Psychological History: Depression Additional Psychological History / Comment(s): and lives with family home with her . 2 adult children. No tobacco or alcohol use. No milita ry experience. No international travel. Pet cats at home they are not new. Used to work in a care of handicapped persons Smoking Status: Never smoker Past Alcohol Use History: None Reported Past Drug Use History: None Reported - Past Family History Mother Family Medical History: Diabetes Mellitus Additional Family Medical History / Comment(s): heart attack, Brother of lung cancer 04/19/14 Father Family Medical History: Cancer Additional Family Medical History / Comment(s): lung cancer Brother(s) Family Medical History: Cancer Additional Family Medical History / Comment(s): LUNG Medications and Allergies Home Medications Medication Instructions Recorded Confirmed Type Clopidogrel Bisulfate [Plavix] 75 mg PO DAILY 09/30/13 09/29/19 History DULoxetine HCL [Cymbalta] 60 mg PO BID 09/30/13 09/29/19 History calcitrioL [Calcitriol] 0.5 mcg PO DAILY 09/30/13 09/29/19 History Ferrous Sulfate [Iron (65 MG 325 mg PO DAILY 07/06/16 09/29/19 History Elemental)] Topiramate [Topamax] 25 mg PO BID 07/06/16 09/29/19 History Aspirin 81 mg PO DAILY 01/06/17 09/29/19 History Atorvastatin [Lipitor] 40 mg PO DAILY 01/06/17 09/29/19 History carvediloL [Coreg*] 12.5 mg PO BID 04/06/18 09/29/19 History Insulin Glargine [Lantus] 32 unit SQ HS 06/05/18 09/29/19 History lisinopriL [Zestril] 2.5 mg PO DAILY 09/21/18 09/29/19 History INSULIN ASPART (NovoLOG) [NovoLOG See Protocol SQ AC-TID 09/29/19 09/29/19 History (formulary)] Pregabalin [Lyrica] 75 mg PO BID 09/29/19 09/29/19 History amLODIPine [Norvasc] 10 mg PO DAILY 09/29/19 09/29/19 History oxyCODONE-APAP 10-325MG [Percocet 1 tab PO QID PRN 09/29/19 09/29/19 History 10-325 mg] Allergies Allergy/AdvReac Type Severity Reaction Status Date / Time No Known Allergies Allergy Verified 09/29/19 17:53 Surgical - Exam Vital Signs Temp Pulse Resp BP Pulse Ox 98.3 F 76 18 198/93 99 09/29/19 14:50 09/29/19 14:50 09/29/19 14:50 09/29/19 14:50 09/29/19 14:50 Results - Labs 09/30/19 08:22 09/30/19 08:22 Abnormal Lab Results - Last 24 Hours (Table) 09/29/19 09/29/19 09/29/19 Range/Units 15:08 15:08 15:08 WBC 10.7 H (3.8-10.6) k/uL RBC (3.80-5.40) m/uL Hgb (11.4-16.0) gm/dL MCV (80.0-100.0) fL MCHC 30.9 L (31.0-37.0) g/dL Neutrophils # 9.9 H (1.3-7.7) k/uL Lymphocytes # 0.4 L (1.0-4.8) k/uL Sodium (137-145) mmol/L BUN 23 H (7-17) mg/dL Creatinine 1.13 H (0.52-1.04) mg/dL Glucose 183 H (74-99) mg/dL POC Glucose (mg/dL) (75-99) mg/dL Calcium (8.4-10.2) mg/dL Total Bilirubin 2.1 H (0.2-1.3) mg/dL AST 889 H (14-36) U/L ALT 325 H (4-34) U/L Alkaline Phosphatase 208 H (38-126) U/L Total Protein (6.3-8.2) g/dL Albumin (3.5-5.0) g/dL Triglycerides 193 H (<150) mg/dL Cholesterol 237 H (<200) mg/dL LDL Cholesterol, Calc 145 H (0-99) mg/dL Lipase 2815 H (23-300) U/L 09/29/19 09/30/19 09/30/19 Range/Units 19:47 06:08 08:22 WBC 12.9 H (3.8-10.6) k/uL RBC 3.73 L (3.80-5.40) m/uL Hgb 11.3 L (11.4-16.0) gm/dL MCV 101.2 H (80.0-100.0) fL MCHC 30.0 L (31.0-37.0) g/dL Neutrophils # 11.6 H (1.3-7.7) k/uL Lymphocytes # 0.5 L (1.0-4.8) k/uL Sodium (137-145) mmol/L BUN (7-17) mg/dL Creatinine (0.52-1.04) mg/dL Glucose (74-99) mg/dL POC Glucose (mg/dL) 158 H 174 H (75-99) mg/dL Calcium (8.4-10.2) mg/dL Total Bilirubin (0.2-1.3) mg/dL AST (14-36) U/L ALT (4-34) U/L Alkaline Phosphatase (38-126) U/L Total Protein (6.3-8.2) g/dL Albumin (3.5-5.0) g/dL Triglycerides (<150) mg/dL Cholesterol (<200) mg/dL LDL Cholesterol, Calc (0-99) mg/dL Lipase (23-300) U/L 09/30/19 09/30/19 Range/Units 08:22 12:05 WBC (3.8-10.6) k/uL RBC (3.80-5.40) m/uL Hgb (11.4-16.0) gm/dL MCV (80.0-100.0) fL MCHC (31.0-37.0) g/dL Neutrophils # (1.3-7.7) k/uL Lymphocytes # (1.0-4.8) k/uL Sodium 135 L (137-145) mmol/L BUN 30 H (7-17) mg/dL Creatinine 1.69 H (0.52-1.04) mg/dL Glucose 230 H (74-99) mg/dL POC Glucose (mg/dL) 153 H (75-99) mg/dL Calcium 7.9 L (8.4-10.2) mg/dL Total Bilirubin 3.6 H (0.2-1.3) mg/dL AST 341 H (14-36) U/L ALT 254 H (4-34) U/L Alkaline Phosphatase 226 H (38-126) U/L Total Protein 5.8 L (6.3-8.2) g/dL Albumin 3.0 L (3.5-5.0) g/dL Triglycerides (<150) mg/dL Cholesterol (<200) mg/dL LDL Cholesterol, Calc (0-99) mg/dL Lipase (23-300) U/L Diabetes panel 09/29/19 09/29/19 09/30/19 Range/Units 15:08 15:08 08:22 Sodium 140 135 L (137-145) mmol/L Potassium 4.6 4.7 (3.5-5.1) mmol/L Chloride 107 102 (98-107) mmol/L Carbon Dioxide 23 24 (22-30) mmol/L BUN 23 H 30 H (7-17) mg/dL Creatinine 1.13 H 1.69 H (0.52-1.04) mg/dL Glucose 183 H 230 H (74-99) mg/dL Calcium 9.2 7.9 L (8.4-10.2) mg/dL AST 889 H 341 H (14-36) U/L ALT 325 H 254 H (4-34) U/L Alkaline Phosphatase 208 H 226 H (38-126) U/L Total Protein 7.8 5.8 L (6.3-8.2) g/dL Albumin 4.2 3.0 L (3.5-5.0) g/dL Triglycerides 193 H (<150) mg/dL HDL Cholesterol 53 (40-60) mg/dL Calcium panel 09/29/19 09/30/19 Range/Units 15:08 08:22 Calcium 9.2 7.9 L (8.4-10.2) mg/dL Albumin 4.2 3.0 L (3.5-5.0) g/dL Pituitary panel 09/29/19 09/30/19 Range/Units 15:08 08:22 Sodium 140 135 L (137-145) mmol/L Potassium 4.6 4.7 (3.5-5.1) mmol/L Chloride 107 102 (98-107) mmol/L Carbon Dioxide 23 24 (22-30) mmol/L BUN 23 H 30 H (7-17) mg/dL Creatinine 1.13 H 1.69 H (0.52-1.04) mg/dL Glucose 183 H 230 H (74-99) mg/dL Calcium 9.2 7.9 L (8.4-10.2) mg/dL Adrenal panel 09/29/19 09/30/19 Range/Units 15:08 08:22 Sodium 140 135 L (137-145) mmol/L Potassium 4.6 4.7 (3.5-5.1) mmol/L Chloride 107 102 (98-107) mmol/L Carbon Dioxide 23 24 (22-30) mmol/L BUN 23 H 30 H (7-17) mg/dL Creatinine 1.13 H 1.69 H (0.52-1.04) mg/dL Glucose 183 H 230 H (74-99) mg/dL Calcium 9.2 7.9 L (8.4-10.2) mg/dL Total Bilirubin 2.1 H 3.6 H (0.2-1.3) mg/dL AST 889 H 341 H (14-36) U/L ALT 325 H 254 H (4-34) U/L Alkaline Phosphatase 208 H 226 H (38-126) U/L Total Protein 7.8 5.8 L (6.3-8.2) g/dL Albumin 4.2 3.0 L (3.5-5.0) g/dL Assessment and Plan (1) History of sleeve gastrectomy Current Visit: Yes Status: Acute Code(s): Z90.3 - ACQUIRED ABSENCE OF STOMACH [PART OF] SNOMED Code(s): 673305591766856 (2) Fibromyalgia Current Visit: Yes Status: Acute Code(s): M79.7 - FIBROMYALGIA SNOMED Code(s): 828691517 (3) Choledocholithiasis Current Visit: Yes Status: Acute Code(s): K80.50 - CALCULUS OF BILE DUCT W/O CHOLANGITIS OR CHOLECYST W/O OBST SNOMED Code(s): 456633082 (4) Chest pain Current Visit: Yes Status: Acute Code(s): R07.9 - CHEST PAIN, UNSPECIFIED SNOMED Code(s): 37530018 (5) Gallstone pancreatitis Current Visit: Yes Status: Acute Code(s): K85.10 - BILIARY ACUTE PANCREATITIS WITHOUT NECROSIS OR INFECTION SNOMED Code(s): 01799304 (6) Morbid obesity Current Visit: Yes Status: Acute Code(s): E66.01 - MORBID (SEVERE) OBESITY DUE TO EXCESS CALORIES SNOMED Code(s): 804015919 (7) Renal insufficiency Current Visit: No Status: Acute Code(s): N28.9 - DISORDER OF KIDNEY AND URETER, UNSPECIFIED SNOMED Code(s): 358859598
[2019-09-30 17:13] LABS: Glucose,Whole Blood 97 mg/dL (75-99)
--- NOTE | 2019-09-30 17:19 | MR ---
EXAMINATION TYPE: MR MRCP DATE OF EXAM: 09/30/2019 COMPARISON: None HISTORY: RUQ pain. elevated LFTs Multiplanar multiecho imaging of the abdomen was performed without contrast. FINDINGS: Gallbladder is somewhat dilated and measures 4.6 x 8.2 cm. The common bile duct is not dilated. There is no focal liver defect. There is some mixed signal in the dependent portion of the gallbladder pro bably due to gallstones. Gallbladder wall is slightly thickened and measures 4.5 mm. The pancreatic d uct appears normal. There is no evidence of pancreatic mass. Spleen is intact. The stomach is intact. There is small hiatal hernia. There is normal flow-void in the portal venous system. There is no adr enal mass. Kidneys show no hydronephrosis. There is no evidence of a solid renal mass. Kidneys have f airly normal size and contour. There is 7 mm cortical cyst posterior lateral left kidney. There is no evidence of retroperitoneal adenopathy. The common bile duct measures up to 9 mm. There is no ascite s. There is no evidence of pleural effusion. IMPRESSION: Mildly dilated gallbladder with gallbladder wall thickening and probably a few gallstones. This is co nsistent with acute and chronic cholecystitis. Mildly ectatic common bile duct but no dilation of the intrahepatic bile ducts. No evidence of obstruction of the distal common bile duct. Large common steve e duct consistent with gallbladder dysfunction. Normal pancreatic duct.
[2019-09-30] MEDS: HEPARIN SODIUM,PORCINE 5,000 UNIT/ML 1 ML VIAL SQ SCH (20:31)
[2019-09-30 20:46] LABS: Glucose,Whole Blood 178 mg/dL (75-99)
[2019-09-30] MEDS: INSULIN DETEMIR (LEVEMIR) 100 UNIT/ML SYR SQ SCH (20:53)
--- NOTE | 2019-09-30 22:34 | CONS ---
CONSULTATION DATE OF SERVICE: September 30, 2019. PHYSICIAN REQUESTING: Dr. Rodriguez. REASON FOR CONSULTATION: Elevated LFTs and jaundice, possible ERCP. Rule out CBD stone. HISTORY OF PRESENT ILLNESS: The patient is a 63-year-old pleasant white female who came into the emergency room complaining of acute onset of severe chest pain, epigastric pain that started yesterday morning. The pain continued to progressively get worse associated with some nausea, vomiting, and diaphoresis. She came into the emergency room and was noted to have elevated serum transaminases and bilirubin up to 3.1 g/dL. She did have ultrasound of the gallbladder done that showed evidence of gallstones but no biliary ductal dilation. Labs done in the ER: WBC 10.7, hemoglobin 13.6, platelets normal. AST and ALT at 899 and 325 respectively, T-bilirubin 2.1. Today bilirubin went up to 2.6, AST and ALT at 341 and 254 respectively. Lipase is 2815. PAST MEDICAL HISTORY: Significant for diabetes mellitus, hypertension, hyperlipidemia, gastroesophageal reflux disease, sleep apnea, rheumatoid arthritis. PAST SURGICAL HISTORY: Breast surgery, gastric sleeve surgery, bilateral cataract surgery, colonoscopy. SOCIAL HISTORY: No smoking. No alcohol use. FAMILY HISTORY: Mother has diabetes mellitus. Brother of lung cancer. MEDICATIONS: Medications at home include aspirin, Plavix, Cymbalta, iron sulfate, Topamax, Lipitor Coreg, Lantus, Zestril. ALLERGIES: ALLERGIES TO LYRICA, PERCOCET, KEFLEX, DOXYCYCLINE, NOVOLOG, AND AMLODIPINE. REVIEW OF SYSTEMS: CARDIOPULMONARY: No chest pain or shortness of breath. GENITOURINARY: No dysuria hematuria. MUSCULOSKELETAL unremarkable. SKIN unremarkable. ENDOCRINE unremarkable. PSYCHIATRIC unremarkable. NEUROLOGY unremarkable. ENT/VISION: Unremarkable. CONSTITUTIONAL: No recent weight loss. No fever, chills, night sweats. PHYSICAL EXAMINATION: She appears comfortable. No apparent distress. VITAL SIGNS: Stable. Blood pressure is 112/82, pulse rate 65, temperature 98. HEENT examination unremarkable. Conjunctivae pink. Sclerae anicteric. Oral cavity no lesions. NECK no JVD or lymph node enlargement. CHEST was clear to auscultation. HEART: Regular rate and rhythm. ABDOMEN: Soft. Bowel sounds are positive. No organomegaly. Minimal tenderness in the epigastric area. EXTREMITIES: No pedal edema. SKIN no rashes. NEUROLOGIC: Alert and oriented x3. No focal deficits. LABS: From today WBC 10.7, hemoglobin normal, platelets normal, T-bilirubin 2.1, AST 889, ALT 325, alkaline phosphatase 285. Today T-bili 3.1, AST is down to 341, ALT is 254, alkaline phosphatase 226, lipase 285. Amylase is 292. Ultrasound of the abdomen showed gallstones but no biliary ductal dilation. IMPRESSION: 1. Acute gallstone pancreatitis. 2. Elevated liver function tests and jaundice, most likely related to retained common bile duct stone. However, serum transaminases have improved today. 3. History of cerebrovascular accident and transient ischemic attack in the past on aspirin and Plavix. 4. History of diabetes mellitus and hypertension. RECOMMENDATIONS: 1. Clear liquid diet. 2. Continue with empiric antibiotics. 3. The patient is on aspirin and Plavix. We will hold off on the ERCP and will schedule the patient for an MRCP to see for any CBD stone. If she does have any CBD filling defects, we will consider an ERCP on Thursday. In the meantime, we will follow her labs closely. Thank you for this consultation. MMODL / IJN: [id number] /
[2019-10-01] MEDS: oxyCODONE-APAP 10-325MG 1 EACH TAB PO PRN ×4 (05:29→23:01)
[2019-10-01 06:14] LABS: Glucose,Whole Blood 39 mg/dL (75-99)
[2019-10-01] MEDS ORDERED: DEXTROSE 50% SYRINGE 50 ML IVP ONE (06:16)
[2019-10-01 06:33] LABS: Glucose,Whole Blood 165 mg/dL (75-99)
[2019-10-01] MEDS: carvediloL 12.5 MG TAB PO SCH ×2 (06:36→17:11)
[2019-10-01 06:41] LABS: Basophils % (A) 0 %; Eosinophils # (A) 0.2 k/uL (0-0.7); Eosinophils % (A) 3 %; HCT 38.2 % (34.0-46.0); HGB 11.7 gm/dL (11.4-16.0); Hypochromasia Moderate; Lymphocytes # (A) 0.5 k/uL (1.0-4.8); Lymphocytes % (A) 6 %; MCH 30.6 pg (25.0-35.0); MCHC 30.7 g/dL (31.0-37.0); MCV 99.6 fL (80.0-100.0); Mean Platelet Volume 7.9; Monocytes # (A) 0.4 k/uL (0-1.0); Monocytes % (A) 5 %; Neutrophils # (A) 6.8 k/uL (1.3-7.7); Neutrophils % (A) 85 %; Platelet Count 175 k/uL (150-450); RBC 3.84 m/uL (3.80-5.40); RDW 13.5 % (11.5-15.5)
[2019-10-01 06:51] LABS: Prothrombin Time 10.6 sec (9.0-12.0)
[2019-10-01 07:15] LABS: Albumin 3.1 g/dL (3.5-5.0); Potassium 4.1 mmol/L (3.5-5.1); Total Bilirubin 3.6 mg/dL (0.2-1.3); Total Protein 6.1 g/dL (6.3-8.2)
[2019-10-01] MEDS: INSULIN ASPART (NovoLOG) 100 UNIT/ML VIAL SQ SCH ×4 (09:02→21:13)
[2019-10-01] MEDS: PIPERACILLIN-TAZOBACTAM 3.375 GM in SODIUM CHLORIDE 0.9% 100 ML IVPB SCH ×2 (09:02→17:11)
[2019-10-01] MEDS: ATORVASTATIN 40 MG TAB PO SCH (09:03)
[2019-10-01] MEDS: DULoxetine HCL 60 MG CAPSULE.DR PO SCH ×2 (09:03→21:13)
[2019-10-01] MEDS: ASPIRIN 81 MG PO SCH (09:03)
[2019-10-01] MEDS: PANTOPRAZOLE 40 MG TABLET PO SCH (09:03)
[2019-10-01] MEDS: amLODIPine 10 MG TAB PO SCH (09:04)
[2019-10-01] MEDS: PREGABALIN 75 MG CAP PO SCH ×2 (09:04→21:14)
[2019-10-01] MEDS: FERROUS SULFATE 325 MG TAB PO SCH (09:04)
[2019-10-01] MEDS: HEPARIN SODIUM,PORCINE 5,000 UNIT/ML 1 ML VIAL SQ SCH ×2 (09:06→21:13)
[2019-10-01] MEDS: TOPIRAMATE 25 MG TAB PO SCH ×2 (09:07→21:14)
--- NOTE | 2019-10-01 10:39 | P.PN ---
Subjective This is a pleasant 64 years old female with past medical history of morbid obesity, obstructive sleep apnea, previous strokes with left-sided hemiparesis, diabetes mellitus, chronic lower extremity edema, hypertension, rheumatoid arthritis, gastroesophageal reflux disease, chronic kidney disease, previous stage II coccygeal ulcer, depression, previous gastric sleeve bypass in 2015. She is a patient of the [facility] [place], also she sees Dr. Martinez for stroke and Dr. Samano for her diabetes. Patient presents because of upper abdominal pain, more on the left side than the right side but patient has previous gastric sleeve surgery, then is below her left breast at the maximum point, nonradiating, felt like pressure was 7/10 in severity, started about one hour and a half before, to emergency room associated with nausea but no vomiting. Patient has regular bowel movement yesterday morning when she took Pepto-Bismol. She felt feverish with chills. She has no chest pain or dyspnea. No coughing. She denies smoking or alcohol use. She denies suicidal or signs symptoms of depression, no hallucination. on admission she has a fever 101.6. Personal vitals are stable. Labs showed leukocytosis of 10.7 K, INR is normal, creatinine is slightly elevated at 1.1, rest of BMP is unremarkable. Liver enzymes are elevated with AST 889, ALT 325, serial troponins are negative with less than 0.012. Lipase is elevated at 2815. Bilirubin is elevated 2.1 Gallbladder ultrasound, multiple gallstones but no dilated intrahepatic bile duct. Gallbladder is markedly dilated and measures 5 cm in centimeter suggestive of gallbladder dysfunction or cholecystitis EKG showing normal sinus rhythm at [address]-T changes, possible LVH with QTC 441, Chest CTA: No evidence of pulmonary embolism. Hiatal hernia, atelectasis An emergency room patient was started on Unasyn and aspirin 324 mg. 1 L of normal saline and a one-time dose of IV labetalol GI and surgery team or consulted from ER A 2220 Patient has no abdominal pain although upper abdomen is still slightly tender, no nausea vomiting, she did not have bowel movement or passing gases. She is hemodynamically stable. The loops he is back to normal. Creatinine is trending up 2.1, we'll check bladder scan and renal ultrasound and nephrology consult. MRCP showed acute on chronic cholecystitis with no dilated common bile duct and no signs of obstruction. Her fever and leukocytosis has improved, patient may not have infection. We'll check pro-calcitonin and if his elevated on we will continue with antibiotic. Then This unlikely patient has cholangitis, and its due to pancreatitis Currently she is on normal saline and Zosyn. Liver enzymes are trending down Patient is on normal saline 75 mL/h Review of Systems CONSTITUTIONAL: No fever, no malaise, no fatigue. HEENT: No recent visual problems or hearing problems. Denied any sore throat. CARDIOVASCULAR: No orthopnea, PND, no palpitations, no syncope. PULMONARY: No shortness of breath, no cough, no hemoptysis. GASTROINTESTINAL: No diarrhea, no nausea, no vomiting, no abdominal pain. Normoactive bowel sounds. NEUROLOGICAL: No headaches, no weakness, no numbness. HEMATOLOGICAL: Denies any bleeding or petechiae. GENITOURINARY: Denies any burning micturition, frequency, or urgency. MUSCULOSKELETAL/RHEUMATOLOGICAL: Denies any joint pain, swelling, or any muscle pain. ENDOCRINE: Denies any polyuria or polydipsia. Active Medications Generic Name Dose Route Start Last Admin Trade Name Freq PRN Reason Stop Dose Admin Acetaminophen 650 mg 09/29/19 22:36 09/29/19 22:41 Tylenol Tab PO 650 mg Q6HR PRN Administration Fever and/ or Pain Amlodipine Besylate 10 mg 09/30/19 09:00 10/01/19 09:04 Norvasc PO 10 mg DAILY EMILIANO Administration Aspirin 81 mg 09/30/19 09:00 10/01/19 09:03 Aspirin PO 81 mg DAILY EMILIANO Administration Atorvastatin Calcium 40 mg 09/30/19 09:00 10/01/19 09:03 Lipitor PO 40 mg DAILY EMILIANO Administration Calcitriol 0.5 mcg 09/30/19 09:00 10/01/19 09:03 Rocaltrol PO 0.5 mcg DAILY EMILIANO Administration Carvedilol 12.5 mg 09/29/19 21:00 10/01/19 06:36 Coreg PO 12.5 mg AC-BID EMILIANO Administration Duloxetine HCl 60 mg 09/29/19 21:00 10/01/19 09:03 Cymbalta PO 60 mg BID EMILIANO Administration Ferrous Sulfate 325 mg 09/30/19 09:00 10/01/19 09:04 Feosol PO 325 mg DAILY EMILIANO Administration Heparin Sodium (Porcine) 5,000 unit 09/30/19 21:00 10/01/19 09:06 Heparin SQ 5,000 unit Q12HR EMILIANO Administration Piperacillin Sod/Tazobactam 100 mls @ 25 mls/hr 09/30/19 08:15 10/01/19 09:02 Sod 3.375 gm/ Sodium Chloride IVPB 25 mls/hr Q8HR EMILIANO Administration Insulin Aspart 0 unit 09/29/19 21:00 10/01/19 09:02 Novolog SQ Not Given ACHS [facility] Protocol Insulin Detemir 32 unit 09/29/19 21:00 09/30/19 20:53 Levemir SQ 32 unit HS EMILIANO Administration Lisinopril 2.5 mg 09/30/19 09:00 10/01/19 09:03 Zestril PO 2.5 mg DAILY EMILIANO Administration Morphine Sulfate 4 mg 09/29/19 17:00 Morphine Sulfate (Inj) IVP Q4HR PRN Pain Nitroglycerin 0.4 mg 09/29/19 17:00 Nitrostat SUBLINGUAL Q5M PRN Chest Pain Ondansetron HCl 4 mg 09/29/19 17:00 Zofran IVP Q6HR PRN Nausea And Vomiting Oxycodone/Acetaminophen 1 each 09/29/19 20:05 09/30/19 21:31 Percocet 10-325 PO 1 each QID PRN Administration Pain Pantoprazole Sodium 40 mg 10/01/19 09:00 10/01/19 09:03 Protonix PO 40 mg DAILY EMILIANO Administration Pregabalin 75 mg 09/29/19 21:00 10/01/19 09:04 Lyrica PO 75 mg BID EMILIANO Administration Topiramate 25 mg 09/29/19 21:00 10/01/19 09:07 Topamax PO 25 mg BID EMILIANO Administration Objective - Vital Signs Vital signs: Vital Signs Temp 98.3 F 10/01/19 09:07 Pulse 51 L 10/01/19 09:07 Resp 16 10/01/19 09:07 BP 129/63 10/01/19 09:07 Pulse Ox 95 10/01/19 09:07 Intake & Output 09/30/19 10/01/19 10/01/19 18:59 06:59 18:59 Intake Total 260 1240 Balance 260 1240 Weight 104.5 kg Intake: Intake, IV Titration 600 Amount Piperacillin-Tazobactam 3 600 .375 gm In Sodium Chloride 0.9% 100 ml @ 25 mls/hr IVPB Q8HR [facility] Rx# :[id number] Oral 260 640 Other: Voiding Method Diaper Diaper Diaper Incontinent Incontinent # Voids 3 1 - Exam GENERAL: The patient is alert and oriented x3, not in any acute distress. Well developed, well nourished. HEENT: Pupils are round and equally reacting to light. EOMI. No scleral icterus. No conjunctival pallor. Normocephalic, atraumatic. No pharyngeal erythema. No thyromegaly. CARDIOVASCULAR: S1 and S2 present. No murmurs, rubs, or gallops. PULMONARY: Chest is clear to auscultation, no wheezing or crackles. ABDOMEN: Soft, nontender, nondistended, normoactive bowel sounds. No palpable organomegaly. MUSCULOSKELETAL: No joint swelling or deformity. EXTREMITIES: No cyanosis, clubbing, or pedal edema. NEUROLOGICAL: Gross neurological examination did not reveal any focal deficits. SKIN: No rashes. no petechiae. - Labs CBC & Chem 7: 10/01/19 06:16 10/01/19 06:16 Labs: Abnormal Lab Results - Last 24 Hours (Table) 09/30/19 09/30/19 10/01/19 Range/Units 12:05 20:44 06:13 MCHC (31.0-37.0) g/dL Lymphocytes # (1.0-4.8) k/uL Sodium (137-145) mmol/L BUN (7-17) mg/dL Creatinine (0.52-1.04) mg/dL Glucose (74-99) mg/dL POC Glucose (mg/dL) 153 H 178 H 39 L (75-99) mg/dL Calcium (8.4-10.2) mg/dL Total Bilirubin (0.2-1.3) mg/dL AST (14-36) U/L ALT (4-34) U/L Alkaline Phosphatase (38-126) U/L Total Protein (6.3-8.2) g/dL Albumin (3.5-5.0) g/dL 08/22/20 08/22/20 08/22/20 Range/Units 06:16 06:16 06:30 MCHC 30.7 L (31.0-37.0) g/dL Lymphocytes # 0.5 L (1.0-4.8) k/uL Sodium 136 L (137-145) mmol/L BUN 36 H (7-17) mg/dL Creatinine 2.13 H (0.52-1.04) mg/dL Glucose 163 H (74-99) mg/dL POC Glucose (mg/dL) 165 H (75-99) mg/dL Calcium 8.0 L (8.4-10.2) mg/dL Total Bilirubin 3.6 H (0.2-1.3) mg/dL AST 143 H (14-36) U/L ALT 191 H (4-34) U/L Alkaline Phosphatase 250 H (38-126) U/L Total Protein 6.1 L (6.3-8.2) g/dL Albumin 3.1 L (3.5-5.0) g/dL Microbiology - Last 24 Hours (Table) 09/29/19 18:22 Blood Culture - Preliminary Blood No Growth after 24 hours Assessment and Plan Assessment: Acute pancreatitis Elevated liver enzymes suspicious for gallstone pancreatitis versus other Acute kidney injury, present on admission Sepsis with positive SIRS with fever and leukocytosis, Mostly secondary to acute pancreatitis Dilated gallbladder suspicious for gallbladder dysfunction or cholecystitis, However MRCP no dilated common bile duct Hiatal hernia Morbid obesity Obstructive sleep apnea previous stroke with left hemiparesis Diabetes mellitus Chronic lower extremity edema Hypertension Rheumatoid arthritis GERD Chronic kidney disease Previous stage II coccygeal Depression previous gastric sleeve surgery Plan: This is a pleasant 64 years old female who presents with chest pain, sepsis and pancreatitis. Change antibiotics to Zosyn. Blood culture. . Follow-up recommendation by GI and surgery teams Labs and medication were reviewed.. Continue same treatment. Continue with symptomatic treatment. Resume home medication. Monitor lytes and vitals. DVT and GI prophylaxis. Further recommendations of the clinical course of the patient DVT prophylaxis: Subcutaneous heparin GI Prophylaxis: Ppi PT/OT: Pending Prognosis is guarded
--- NOTE | 2019-10-01 11:32 | P.PN ---
Subjective Progress Note Date: 10/01/19 Principal diagnosis: Gallstone pancreatitis Patient with mild upper abdominal pain at this time. Liver enzymes remain elevated. MRCP without obvious CBD stone or obstruction. GI evaluation noted. Objective - Vital Signs Vital signs: Vital Signs Temp 98.3 F 10/01/19 09:07 Pulse 51 L 10/01/19 09:07 Resp 16 10/01/19 09:07 BP 129/63 10/01/19 09:07 Pulse Ox 95 10/01/19 09:07 Intake & Output 09/30/19 10/01/19 10/01/19 18:59 06:59 18:59 Intake Total 260 1240 Balance 260 1240 Weight 104.5 kg Intake: Intake, IV Titration 600 Amount Piperacillin-Tazobactam 3 600 .375 gm In Sodium Chloride 0.9% 100 ml @ 25 mls/hr IVPB Q8HR [facility] Rx# :[id number] Oral 260 640 Other: Voiding Method Diaper Diaper Diaper Incontinent Incontinent # Voids 3 1 - Exam Abdomen: Soft, nondistended, mild epigastric tenderness - Labs CBC & Chem 7: 10/01/19 06:16 10/01/19 06:16 Labs: Abnormal Lab Results - Last 24 Hours (Table) 09/30/19 09/30/19 10/01/19 Range/Units 12:05 20:44 06:13 MCHC (31.0-37.0) g/dL Lymphocytes # (1.0-4.8) k/uL Sodium (137-145) mmol/L BUN (7-17) mg/dL Creatinine (0.52-1.04) mg/dL Glucose (74-99) mg/dL POC Glucose (mg/dL) 153 H 178 H 39 L (75-99) mg/dL Calcium (8.4-10.2) mg/dL Total Bilirubin (0.2-1.3) mg/dL AST (14-36) U/L ALT (4-34) U/L Alkaline Phosphatase (38-126) U/L Total Protein (6.3-8.2) g/dL Albumin (3.5-5.0) g/dL Procalcitonin (0.02-0.09) ng/mL 10/01/19 10/01/19 10/01/19 Range/Units 06:16 06:16 06:16 MCHC 30.7 L (31.0-37.0) g/dL Lymphocytes # 0.5 L (1.0-4.8) k/uL Sodium 136 L (137-145) mmol/L BUN 36 H (7-17) mg/dL Creatinine 2.13 H (0.52-1.04) mg/dL Glucose 163 H (74-99) mg/dL POC Glucose (mg/dL) (75-99) mg/dL Calcium 8.0 L (8.4-10.2) mg/dL Total Bilirubin 3.6 H (0.2-1.3) mg/dL AST 143 H (14-36) U/L ALT 191 H (4-34) U/L Alkaline Phosphatase 250 H (38-126) U/L Total Protein 6.1 L (6.3-8.2) g/dL Albumin 3.1 L (3.5-5.0) g/dL Procalcitonin 3.34 H (0.02-0.09) ng/mL 10/01/19 Range/Units 06:30 MCHC (31.0-37.0) g/dL Lymphocytes # (1.0-4.8) k/uL Sodium (137-145) mmol/L BUN (7-17) mg/dL Creatinine (0.52-1.04) mg/dL Glucose (74-99) mg/dL POC Glucose (mg/dL) 165 H (75-99) mg/dL Calcium (8.4-10.2) mg/dL Total Bilirubin (0.2-1.3) mg/dL AST (14-36) U/L ALT (4-34) U/L Alkaline Phosphatase (38-126) U/L Total Protein (6.3-8.2) g/dL Albumin (3.5-5.0) g/dL Procalcitonin (0.02-0.09) ng/mL Microbiology - Last 24 Hours (Table) 09/29/19 18:22 Blood Culture - Preliminary Blood No Growth after 24 hours Assessment and Plan (1) Gallstone pancreatitis Narrative/Plan: 64-year-old female with gallstone pancreatitis. MRCP results noted. Continue to follow lab values. Gradually advance diet. Current Visit: Yes Status: Acute Code(s): K85.10 - BILIARY ACUTE PANCREATITIS WITHOUT NECROSIS OR INFECTION SNOMED Code(s): 12965886
[2019-10-01 11:44] LABS: Glucose,Whole Blood 148 mg/dL (75-99)
--- NOTE | 2019-10-01 12:00 | US ---
EXAMINATION TYPE: US renals and bladder DATE OF EXAM: 10/01/2019 COMPARISON: NONE CLINICAL HISTORY: fartun. abn labs, left flank pain EXAM MEASUREMENTS: Right Kidney: 10.1 x 4.3 x 4.2 cm Left Kidney: 11.2 x 3.4 x 5.2 cm Right Kidney: No hydronephrosis or masses seen Left Kidney: No hydronephrosis or masses seen Bladder: wnl There is no evidence for hydronephrosis at this point in time. No nephrolithiasis is seen. No perlita s are identified. The urinary bladder is anechoic. Bilateral ureteral jets are seen. IMPRESSION: No distinct abnormality seen.
--- NOTE | 2019-10-01 14:39 | PN ---
PROGRESS NOTE DATE OF SERVICE: 10/01/2019 The patient is a 64-year-old pleasant white female admitted to hospital with acute gallstone pancreatitis. She is feeling better. Abdominal pain has resolved. She did have an MRCP yesterday that showed ectatic dilated common bile duct but no filling defects noted. PHYSICAL EXAMINATION: She appears comfortable. VITAL SIGNS: Stable. Blood pressure is 129/63, pulse 62, temperature 98. HEENT examination unremarkable. Conjunctivae pink. Sclerae slightly icteric. Oral cavity no lesions. NECK: No JVD or lymph node enlargement. CHEST was clear to auscultation. HEART: Regular rate and rhythm. ABDOMEN: Soft. There was very minimal tenderness in the epigastric area. Rest of the abdomen was benign. Bowel sounds are positive. EXTREMITIES: No pedal edema. NEURO: She is alert and oriented x3. No focal deficits. Lipase today is 41. AST and ALT are 143 and 191 respectively. T bilirubin 3.6. BUN 36, creatinine 2.13. WBC 8, hemoglobin 11.7, platelets 135. IMPRESSION: 1. Acute gallstone pancreatitis, gradually improving. 2. Elevated liver function tests with mild jaundice. MRCP done yesterday showed no evidence of common bile duct stones but ectatic slightly dilated common bile duct. 3. Symptomatic gallstones. 4. History of cerebrovascular accident in the past on aspirin and Plavix, currently on hold. RECOMMENDATIONS: 1. Continue antibiotics. 2. No need for ERCP at the present time. 3. Monitor LFTs closely. 4. Advance diet as tolerated. 5. Possible laparoscopic cholecystectomy during this hospitalization. 6. We will follow with you closely. Thank you for this consultation. MMODL / IJN: [id number] /
[2019-10-01 16:36] LABS: Glucose,Whole Blood 279 mg/dL (75-99)
[2019-10-01 19:55] LABS: Glucose,Whole Blood 194 mg/dL (75-99)
[2019-10-01] MEDS: INSULIN DETEMIR (LEVEMIR) 100 UNIT/ML SYR SQ SCH (21:14)
[2019-10-01] MEDS: SODIUM CHLORIDE 0.9% 1,000 ML IV SCH (23:02)
[2019-10-02] MEDS: PIPERACILLIN-TAZOBACTAM 3.375 GM in SODIUM CHLORIDE 0.9% 100 ML IVPB SCH ×4 (00:13→23:28)
[2019-10-02 02:53] LABS: Glucose,Whole Blood 46 mg/dL (75-99)
[2019-10-02 03:09] LABS: Glucose,Whole Blood 67 mg/dL (75-99)
[2019-10-02 03:24] LABS: Glucose,Whole Blood 88 mg/dL (75-99)
[2019-10-02] MEDS: oxyCODONE-APAP 10-325MG 1 EACH TAB PO PRN ×3 (06:20→21:01)
[2019-10-02 07:17] LABS: Glucose,Whole Blood 44 mg/dL (75-99)
[2019-10-02 07:17] LABS: Glucose,Whole Blood 43 mg/dL (75-99)
[2019-10-02] MEDS: INSULIN ASPART (NovoLOG) 100 UNIT/ML VIAL SQ SCH ×4 (07:22→20:59)
[2019-10-02 07:28] LABS: Basophils % (A) 0 %; Eosinophils # (A) 0.2 k/uL (0-0.7); Eosinophils % (A) 5 %; HCT 36.5 % (34.0-46.0); Hypochromasia Moderate; Lymphocytes # (A) 0.6 k/uL (1.0-4.8); Lymphocytes % (A) 15 %; MCH 30.1 pg (25.0-35.0); MCHC 30.2 g/dL (31.0-37.0); MCV 99.5 fL (80.0-100.0); Mean Platelet Volume 8.3; Monocytes # (A) 0.3 k/uL (0-1.0); Monocytes % (A) 7 %; Neutrophils % (A) 72 %; Platelet Count 163 k/uL (150-450); RBC 3.67 m/uL (3.80-5.40); RDW 13.2 % (11.5-15.5); WBC 4.2 k/uL (3.8-10.6)
[2019-10-02 07:32] LABS: Glucose,Whole Blood 64 mg/dL (75-99)
[2019-10-02 07:34] LABS: INR 0.9 (<1.2); Prothrombin Time 9.7 sec (9.0-12.0)
[2019-10-02] MEDS: ASPIRIN 81 MG PO SCH (07:45)
[2019-10-02] MEDS: carvediloL 12.5 MG TAB PO SCH ×2 (07:45→17:17)
[2019-10-02] MEDS: amLODIPine 10 MG TAB PO SCH (07:45)
[2019-10-02] MEDS: PREGABALIN 75 MG CAP PO SCH ×2 (07:45→21:00)
[2019-10-02] MEDS: DULoxetine HCL 60 MG CAPSULE.DR PO SCH ×2 (07:45→20:59)
[2019-10-02] MEDS: ATORVASTATIN 40 MG TAB PO SCH (07:45)
[2019-10-02] MEDS: PANTOPRAZOLE 40 MG TABLET PO SCH (07:45)
[2019-10-02] MEDS: FERROUS SULFATE 325 MG TAB PO SCH (07:45)
[2019-10-02 07:46] LABS: Albumin 2.8 g/dL (3.5-5.0); Calcium 7.8 mg/dL (8.4-10.2); Potassium 4.4 mmol/L (3.5-5.1); Total Bilirubin 2.1 mg/dL (0.2-1.3); Total Protein 5.7 g/dL (6.3-8.2)
[2019-10-02 07:46] LABS: Glucose,Whole Blood 102 mg/dL (75-99)
[2019-10-02] MEDS: HEPARIN SODIUM,PORCINE 5,000 UNIT/ML 1 ML VIAL SQ SCH ×2 (07:46→20:59)
[2019-10-02] MEDS: TOPIRAMATE 25 MG TAB PO SCH ×2 (08:15→21:00)
--- NOTE | 2019-10-02 09:06 | P.PN ---
Subjective This is a pleasant 64 years old female with past medical history of morbid obesity, obstructive sleep apnea, previous strokes with left-sided hemiparesis, diabetes mellitus, chronic lower extremity edema, hypertension, rheumatoid arthritis, gastroesophageal reflux disease, chronic kidney disease, previous stage II coccygeal ulcer, depression, previous gastric sleeve bypass in 2015. She is a patient of the [facility], also she sees Dr. Martinez for stroke and Dr. Samano for her diabetes. Patient presents because of upper abdominal pain, more on the left side than the right side but patient has previous gastric sleeve surgery, then is below her left breast at the maximum point, nonradiating, felt like pressure was 7/10 in severity, started about one hour and a half before, to emergency room associated with nausea but no vomiting. Patient has regular bowel movement yesterday morning when she took Pepto-Bismol. She felt feverish with chills. She has no chest pain or dyspnea. No coughing. She denies smoking or alcohol use. She denies suicidal or signs symptoms of depression, no hallucination. on admission she has a fever 101.6. Personal vitals are stable. Labs showed leukocytosis of 10.7 K, INR is normal, creatinine is slightly elevated at 1.1, rest of BMP is unremarkable. Liver enzymes are elevated with AST 889, ALT 325, serial troponins are negative with less than 0.012. Lipase is elevated at 2815. Bilirubin is elevated 2.1 Gallbladder ultrasound, multiple gallstones but no dilated intrahepatic bile duct. Gallbladder is markedly dilated and measures 5 cm in centimeter suggestive of gallbladder dysfunction or cholecystitis EKG showing normal sinus rhythm at [address]-T changes, possible LVH with QTC 441, Chest CTA: No evidence of pulmonary embolism. Hiatal hernia, atelectasis An emergency room patient was started on Unasyn and aspirin 324 mg. 1 L of normal saline and a one-time dose of IV labetalol GI and surgery team or consulted from ER A 2220 Patient has no abdominal pain although upper abdomen is still slightly tender, no nausea vomiting, she did not have bowel movement or passing gases. She is hemodynamically stable. The loops he is back to normal. Creatinine is trending up 2.1, we'll check bladder scan and renal ultrasound and nephrology consult. MRCP showed acute on chronic cholecystitis with no dilated common bile duct and no signs of obstruction. Her fever and leukocytosis has improved, patient may not have infection. We'll check pro-calcitonin and if his elevated on we will continue with antibiotic. Then This unlikely patient has cholangitis, and its due to pancreatitis Currently she is on normal saline and Zosyn. Liver enzymes are trending down Patient is on normal saline 75 mL/h 10/02/2019 Patient is awake and alert, she does not have very good appetite however she is eating her liquid diet which advanced today to soft/regular diet as tolerated, she has no abdominal pain but she did not last bowel movement except gases. Her sugar was low this morning and she confirmed to me she was taken Lantus 32 units at bedtime and 14 units with meals, we will lowered her Levemir from 32 down to 20 units and advance diet and thus will help with her sugar, F sugar remains low we will change her normal saline to D5 normal saline and I discussed with the staff. She still needs IV antibiotics and she is currently on Zosyn. CBC and BMP are stable, creatinine is coming down, her renal ultrasound is unremarkable. Her liver enzymes are trending down No indication for ERCP today. We will follow up with surgery team for possible need for cholecystectomy Objective - Vital Signs Vital signs: Vital Signs Temp 98.0 F 10/02/19 04:43 Pulse 67 10/02/19 04:43 Resp 16 10/02/19 04:43 BP 129/74 10/02/19 04:43 Pulse Ox 96 10/02/19 04:43 Intake & Output 10/01/19 10/02/19 10/02/19 18:59 06:59 18:59 Intake Total 480 990 Balance 480 990 Intake: Oral 480 990 Other: Voiding Method Diaper Bedside Commode Incontinent # Voids 4 - Exam GENERAL: The patient is alert and oriented x3, not in any acute distress. Well developed, well nourished. HEENT: Pupils are round and equally reacting to light. EOMI. No scleral icterus. No conjunctival pallor. Normocephalic, atraumatic. No pharyngeal erythema. No thyromegaly. CARDIOVASCULAR: S1 and S2 present. No murmurs, rubs, or gallops. PULMONARY: Chest is clear to auscultation, no wheezing or crackles. ABDOMEN: Soft, nontender, nondistended, normoactive bowel sounds. No palpable organomegaly. MUSCULOSKELETAL: No joint swelling or deformity. EXTREMITIES: No cyanosis, clubbing, or pedal edema. NEUROLOGICAL: Gross neurological examination did not reveal any focal deficits. SKIN: No rashes. no petechiae. - Labs CBC & Chem 7: 10/02/19 07:13 10/02/19 07:13 Labs: Abnormal Lab Results - Last 24 Hours (Table) 10/01/19 10/01/19 10/01/19 Range/Units 06:16 11:39 16:27 RBC (3.80-5.40) m/uL Hgb (11.4-16.0) gm/dL MCHC (31.0-37.0) g/dL Lymphocytes # (1.0-4.8) k/uL Sodium (137-145) mmol/L BUN (7-17) mg/dL Creatinine (0.52-1.04) mg/dL Glucose (74-99) mg/dL POC Glucose (mg/dL) 148 H 279 H (75-99) mg/dL Calcium (8.4-10.2) mg/dL Total Bilirubin (0.2-1.3) mg/dL AST (14-36) U/L ALT (4-34) U/L Alkaline Phosphatase (38-126) U/L Total Protein (6.3-8.2) g/dL Albumin (3.5-5.0) g/dL Procalcitonin 3.34 H (0.02-0.09) ng/mL 10/01/19 10/02/19 10/02/19 Range/Units 19:53 02:50 03:07 RBC (3.80-5.40) m/uL Hgb (11.4-16.0) gm/dL MCHC (31.0-37.0) g/dL Lymphocytes # (1.0-4.8) k/uL Sodium (137-145) mmol/L BUN (7-17) mg/dL Creatinine (0.52-1.04) mg/dL Glucose (74-99) mg/dL POC Glucose (mg/dL) 194 H 46 L 67 L (75-99) mg/dL Calcium (8.4-10.2) mg/dL Total Bilirubin (0.2-1.3) mg/dL AST (14-36) U/L ALT (4-34) U/L Alkaline Phosphatase (38-126) U/L Total Protein (6.3-8.2) g/dL Albumin (3.5-5.0) g/dL Procalcitonin (0.02-0.09) ng/mL 10/02/19 10/02/19 10/02/19 Range/Units 07:11 07:12 07:13 RBC (3.80-5.40) m/uL Hgb (11.4-16.0) gm/dL MCHC (31.0-37.0) g/dL Lymphocytes # (1.0-4.8) k/uL Sodium 135 L (137-145) mmol/L BUN 34 H (7-17) mg/dL Creatinine 1.80 H (0.52-1.04) mg/dL Glucose 42 L* (74-99) mg/dL POC Glucose (mg/dL) 43 L 44 L (75-99) mg/dL Calcium 7.8 L (8.4-10.2) mg/dL Total Bilirubin 2.1 H (0.2-1.3) mg/dL AST 67 H (14-36) U/L ALT 121 H (4-34) U/L Alkaline Phosphatase 235 H (38-126) U/L Total Protein 5.7 L (6.3-8.2) g/dL Albumin 2.8 L (3.5-5.0) g/dL Procalcitonin (0.02-0.09) ng/mL 10/02/19 10/02/19 10/02/19 Range/Units 07:13 07:28 07:43 RBC 3.67 L (3.80-5.40) m/uL Hgb 11.0 L (11.4-16.0) gm/dL MCHC 30.2 L (31.0-37.0) g/dL Lymphocytes # 0.6 L (1.0-4.8) k/uL Sodium (137-145) mmol/L BUN (7-17) mg/dL Creatinine (0.52-1.04) mg/dL Glucose (74-99) mg/dL POC Glucose (mg/dL) 64 L 102 H (75-99) mg/dL Calcium (8.4-10.2) mg/dL Total Bilirubin (0.2-1.3) mg/dL AST (14-36) U/L ALT (4-34) U/L Alkaline Phosphatase (38-126) U/L Total Protein (6.3-8.2) g/dL Albumin (3.5-5.0) g/dL Procalcitonin (0.02-0.09) ng/mL Microbiology - Last 24 Hours (Table) 09/29/19 18:22 Blood Culture - Preliminary Blood No Growth after 48 hours Assessment and Plan Assessment: Acute pancreatitis Elevated liver enzymes suspicious for gallstone pancreatitis versus other Acute kidney injury, present on admission Sepsis with positive SIRS with fever and leukocytosis, Mostly secondary to acute pancreatitis Dilated gallbladder suspicious for gallbladder dysfunction or cholecystitis, However MRCP no dilated common bile duct Hiatal hernia Morbid obesity Obstructive sleep apnea previous stroke with left hemiparesis Diabetes mellitus Chronic lower extremity edema Hypertension Rheumatoid arthritis GERD Chronic kidney disease Previous stage II coccygeal Depression previous gastric sleeve surgery Plan: This is a pleasant 64 years old female who presents with chest pain, sepsis and pancreatitis. Continue with antibiotics to Zosyn. Blood culture. . Follow-up recommendation by GI and surgery teams Labs and medication were reviewed.. Continue same treatment. Continue with symptomatic treatment. Resume home medication. Monitor lytes and vitals. DVT and GI prophylaxis. Further recommendations of the clinical course of the patient DVT prophylaxis: Subcutaneous heparin GI Prophylaxis: Ppi PT/OT: Pending Prognosis is guarded
--- NOTE | 2019-10-02 10:58 | P.PN ---
Subjective Progress Note Date: 10/02/19 Principal diagnosis: Gallstone pancreatitis Patient is doing better today. Denies abdominal pain currently. Bilirubin is improved at 2.1. Tolerating diet. Objective - Vital Signs Vital signs: Vital Signs Temp 98.0 F 10/02/19 04:43 Pulse 63 10/02/19 08:00 Resp 16 10/02/19 08:00 BP 129/74 10/02/19 04:43 Pulse Ox 96 10/02/19 04:43 Intake & Output 10/01/19 10/02/19 10/02/19 18:59 06:59 18:59 Intake Total 480 990 Balance 480 990 Intake: Oral 480 990 Other: Voiding Method Diaper Bedside Commode Bedside Commode Incontinent # Voids 4 2 - Exam Abdomen: Soft, nontender, nondistended - Labs CBC & Chem 7: 10/02/19 07:13 10/02/19 07:13 Labs: Abnormal Lab Results - Last 24 Hours (Table) 10/01/19 10/01/19 10/01/19 Range/Units 11:39 16:27 19:53 RBC (3.80-5.40) m/uL Hgb (11.4-16.0) gm/dL MCHC (31.0-37.0) g/dL Lymphocytes # (1.0-4.8) k/uL Sodium (137-145) mmol/L BUN (7-17) mg/dL Creatinine (0.52-1.04) mg/dL Glucose (74-99) mg/dL POC Glucose (mg/dL) 148 H 279 H 194 H (75-99) mg/dL Calcium (8.4-10.2) mg/dL Total Bilirubin (0.2-1.3) mg/dL AST (14-36) U/L ALT (4-34) U/L Alkaline Phosphatase (38-126) U/L Total Protein (6.3-8.2) g/dL Albumin (3.5-5.0) g/dL 10/02/19 10/02/19 10/02/19 Range/Units 02:50 03:07 07:11 RBC (3.80-5.40) m/uL Hgb (11.4-16.0) gm/dL MCHC (31.0-37.0) g/dL Lymphocytes # (1.0-4.8) k/uL Sodium (137-145) mmol/L BUN (7-17) mg/dL Creatinine (0.52-1.04) mg/dL Glucose (74-99) mg/dL POC Glucose (mg/dL) 46 L 67 L 43 L (75-99) mg/dL Calcium (8.4-10.2) mg/dL Total Bilirubin (0.2-1.3) mg/dL AST (14-36) U/L ALT (4-34) U/L Alkaline Phosphatase (38-126) U/L Total Protein (6.3-8.2) g/dL Albumin (3.5-5.0) g/dL 10/02/19 10/02/19 10/02/19 Range/Units 07:12 07:13 07:13 RBC 3.67 L (3.80-5.40) m/uL Hgb 11.0 L (11.4-16.0) gm/dL MCHC 30.2 L (31.0-37.0) g/dL Lymphocytes # 0.6 L (1.0-4.8) k/uL Sodium 135 L (137-145) mmol/L BUN 34 H (7-17) mg/dL Creatinine 1.80 H (0.52-1.04) mg/dL Glucose 42 L* (74-99) mg/dL POC Glucose (mg/dL) 44 L (75-99) mg/dL Calcium 7.8 L (8.4-10.2) mg/dL Total Bilirubin 2.1 H (0.2-1.3) mg/dL AST 67 H (14-36) U/L ALT 121 H (4-34) U/L Alkaline Phosphatase 235 H (38-126) U/L Total Protein 5.7 L (6.3-8.2) g/dL Albumin 2.8 L (3.5-5.0) g/dL 10/02/19 10/02/19 Range/Units 07:28 07:43 RBC (3.80-5.40) m/uL Hgb (11.4-16.0) gm/dL MCHC (31.0-37.0) g/dL Lymphocytes # (1.0-4.8) k/uL Sodium (137-145) mmol/L BUN (7-17) mg/dL Creatinine (0.52-1.04) mg/dL Glucose (74-99) mg/dL POC Glucose (mg/dL) 64 L 102 H (75-99) mg/dL Calcium (8.4-10.2) mg/dL Total Bilirubin (0.2-1.3) mg/dL AST (14-36) U/L ALT (4-34) U/L Alkaline Phosphatase (38-126) U/L Total Protein (6.3-8.2) g/dL Albumin (3.5-5.0) g/dL Microbiology - Last 24 Hours (Table) 09/29/19 18:22 Blood Culture - Preliminary Blood No Growth after 48 hours Assessment and Plan (1) Gallstone pancreatitis Narrative/Plan: Patient clinically improving. Continue to gradually advance diet. Monitor liver enzymes. Current Visit: Yes Status: Acute Code(s): K85.10 - BILIARY ACUTE PANCREATITIS WITHOUT NECROSIS OR INFECTION SNOMED Code(s): 64134729
[2019-10-02 12:07] LABS: Glucose,Whole Blood 81 mg/dL (75-99)
[2019-10-02] MEDS: SODIUM CHLORIDE 0.9% 1,000 ML IV SCH ×2 (12:32→17:19)
--- NOTE | 2019-10-02 13:13 | PN ---
PROGRESS NOTE DATE OF SERVICE: 10/02/2019 INTERVAL HISTORY: The patient is a 64-year-old pleasant white female admitted to hospital with acute gallstone pancreatitis. LFTs are gradually improving. Abdominal pain has resolved on a low-fat diet, tolerating well. She reports no nausea, vomiting. No fever, chills. EXAMINATION: She appears comfortable. No apparent distress VITAL SIGNS: Stable. Blood pressure is 144/74, pulse is 67, temperature 98. HEENT: Examination unremarkable. Conjunctivae are pink. Sclerae anicteric. Oral cavity no lesions. NECK: No JVD or lymph node enlargement. CHEST: Clear to auscultation. HEART: Regular rate and rhythm. ABDOMEN: Soft. Bowel sounds are positive. Mild tenderness in the epigastric area. EXTREMITIES: No pedal edema. SKIN: No rashes. NEURO: She is alert and oriented x3. No focal deficits. LABS: From today, T bilirubin is 2.1, AST 67, ALT 121, alkaline phosphatase is 235, WBC 4.2, hemoglobin 11, platelets normal. IMPRESSION: Acute gallstone pancreatitis with elevated LFTs. Amylase and lipase have normalized. Serum transaminases gradually improving. Bilirubin is down to 2.1. MRCP did not show any evidence of CBD filling defects. RECOMMENDATION: 1. Advance diet as tolerated. 2. Continue broad-spectrum antibiotics. 3. No need for an ERCP at the present time. 4. Proceed with gallbladder surgery by Dr. Calero. Thank you for this consultation. MMODL / IJN: [id number] /
[2019-10-02 16:38] LABS: Glucose,Whole Blood 107 mg/dL (75-99)
[2019-10-02 20:05] LABS: Glucose,Whole Blood 153 mg/dL (75-99)
[2019-10-02] MEDS ORDERED: INSULIN DETEMIR (LEVEMIR) 100 UNIT/ML SYR SQ SCH (21:00)
[2019-10-03 03:28] LABS: Glucose,Whole Blood 65 mg/dL (75-99)
[2019-10-03 04:02] LABS: Glucose,Whole Blood 83 mg/dL (75-99)
[2019-10-03] MEDS: oxyCODONE-APAP 10-325MG 1 EACH TAB PO PRN ×2 (05:38→16:24)
[2019-10-03 06:01] LABS: Basophils % (A) 0 %; Eosinophils # (A) 0.1 k/uL (0-0.7); Eosinophils % (A) 3 %; HCT 36.3 % (34.0-46.0); Hypochromasia Marked; Lymphocytes # (A) 0.5 k/uL (1.0-4.8); Lymphocytes % (A) 13 %; MCH 30.6 pg (25.0-35.0); MCHC 30.4 g/dL (31.0-37.0); MCV 100.5 fL (80.0-100.0); Mean Platelet Volume 7.9; Monocytes # (A) 0.3 k/uL (0-1.0); Monocytes % (A) 8 %; Neutrophils # (A) 3.1 k/uL (1.3-7.7); Neutrophils % (A) 74 %; Platelet Count 152 k/uL (150-450); RBC 3.61 m/uL (3.80-5.40); RDW 13.4 % (11.5-15.5); WBC 4.1 k/uL (3.8-10.6)
[2019-10-03 06:15] LABS: Albumin 2.8 g/dL (3.5-5.0); Bilirubin, Conjugated 0.1 mg/dL (0.0-0.3); Bilirubin, Delta 1.3 mg/dL (0.0-0.2); Bilirubin,Unconjugated 0.3 mg/dL (0.0-1.1); Calcium 8.4 mg/dL (8.4-10.2); Potassium 4.4 mmol/L (3.5-5.1); Total Bilirubin 1.7 mg/dL (0.2-1.3); Total Protein 5.7 g/dL (6.3-8.2)
[2019-10-03 07:03] LABS: Glucose,Whole Blood 84 mg/dL (75-99)
[2019-10-03] MEDS: INSULIN ASPART (NovoLOG) 100 UNIT/ML VIAL SQ SCH ×4 (07:12→21:06)
[2019-10-03] MEDS: PIPERACILLIN-TAZOBACTAM 3.375 GM in SODIUM CHLORIDE 0.9% 100 ML IVPB SCH ×3 (07:25→23:37)
[2019-10-03] MEDS: PANTOPRAZOLE 40 MG TABLET PO SCH (07:25)
[2019-10-03] MEDS: DULoxetine HCL 60 MG CAPSULE.DR PO SCH ×2 (07:25→21:06)
[2019-10-03] MEDS: PREGABALIN 75 MG CAP PO SCH ×2 (07:25→21:06)
[2019-10-03] MEDS: ASPIRIN 81 MG PO SCH (07:25)
[2019-10-03] MEDS: FERROUS SULFATE 325 MG TAB PO SCH (07:25)
[2019-10-03] MEDS: ATORVASTATIN 40 MG TAB PO SCH (07:25)
[2019-10-03] MEDS: carvediloL 12.5 MG TAB PO SCH ×2 (07:26→18:07)
[2019-10-03] MEDS: TOPIRAMATE 25 MG TAB PO SCH ×2 (07:26→21:06)
[2019-10-03] MEDS: HEPARIN SODIUM,PORCINE 5,000 UNIT/ML 1 ML VIAL SQ SCH ×2 (07:26→21:00)
[2019-10-03] MEDS: amLODIPine 10 MG TAB PO SCH (07:26)
--- NOTE | 2019-10-03 09:48 | P.PN ---
Subjective Progress Note Date: 10/03/19 CHIEF COMPLAINT: Gallstone pancreatitis HISTORY OF PRESENT ILLNESS: Alma Vivar is a 64-year-old female admitted for gallstone pancreatitis with elevated total bilirubin to 3.6 including elevated AST ALT and lipase. Since admission, she still reports left upper quadrant abdominal pain. She is tolerating liquids. She completed MRCP. Last dose of Plavix 10/01/19. REVIEW OF SYSTEMS: No fevers or chills. No productive sputum. No blood in stools. PHYSICAL EXAM: VITAL SIGNS: Reviewed. GENERAL: Well-developed pleasant female in no acute distress. HEENT: No scleral icterus. Extraocular movements grossly intact. Moist buccal mucosa. NECK: Supple without lymphadenopathy. CHEST: Unlabored respirations. Equal bilateral excursions. CARDIOVASCULAR: 2+ distal pulses ABDOMEN: Obese, soft, no peritonitis. Persistent tenderness left upper quadrant. Nontender right upper quadrant or epigastrium. MUSCULOSKELETAL: No clubbing, cyanosis. NEURO: No focal or lateralizing signs. Cranial nerves 2 through 12 grossly within normal limits. PSYCH: Alert and oriented to person place and time. SKIN: Well perfused. Good skin turgor. LABS: Total bilirubin elevated at 2.1-3.6, now 1.7. AST down from 889-341, now 46. ALT down 325-254, now 90. Lipase down 2815 to normal. WBC elevated from 10.7-12.9, now normal at 4.1. STUDIES: MRCP independent reviewed demonstrating no stones within the common bile duct. Gallbladder was distended. It is my independent interpretation. ASSESSMENT: 1. Gallstone pancreatitis 2. History of super morbid obesity BMI of 49 down to 33.7 2. Fibromyalgia. 3. Chronic pain syndrome. 4. Diabetes type 2 insulin dependent. 5. Cardiomyopathy. 6. History of stroke. 7. Iron-deficiency anemia. 8. Depression. 9. Chronic pain syndrome. 10. Renal insufficiency. 11. Status post sleeve gastrectomy PLAN: 1. She has pre-existing history of cardiac disease including presented with overlapping chest pain. Recommend cardiac risk assessment. 2. Last dose of Plavix, 2 days ago. Will need at least 5 days of Plavix prior to surgical intervention. 3. In the interim, low-fat diet. Objective - Vital Signs Vital signs: Vital Signs Temp 98.0 F 10/03/19 05:28 Pulse 66 10/03/19 05:28 Resp 16 10/03/19 05:28 BP 150/75 10/03/19 05:28 Pulse Ox 96 10/03/19 05:28 Intake & Output 10/02/19 10/03/19 10/03/19 18:59 06:59 18:59 Intake Total 2150 1180 Balance 2150 1180 Intake: Intake, IV Titration 1000 Amount Piperacillin-Tazobactam 3 100 .375 gm In Sodium Chloride 0.9% 100 ml @ 25 mls/hr IVPB Q8HR EMILIANO Rx# :[id number] Sodium Chloride 0.9% 1, 900 000 ml @ 75 mls/hr IV . [id number] EMILIANO Rx#:[id number] Oral 1150 1180 Other: Voiding Method Bedside Commode Bedside Commode Bedside Commode Incontinent Incontinent # Voids 3 3 - Labs CBC & Chem 7: 10/03/19 05:32 10/03/19 05:32 Labs: Abnormal Lab Results - Last 24 Hours (Table) 10/02/19 10/02/19 10/03/19 Range/Units 16:36 20:03 03:27 RBC (3.80-5.40) m/uL Hgb (11.4-16.0) gm/dL MCV (80.0-100.0) fL MCHC (31.0-37.0) g/dL Lymphocytes # (1.0-4.8) k/uL Chloride (98-107) mmol/L BUN (7-17) mg/dL Creatinine (0.52-1.04) mg/dL POC Glucose (mg/dL) 107 H 153 H 65 L (75-99) mg/dL Total Bilirubin (0.2-1.3) mg/dL Delta Bilirubin (0.0-0.2) mg/dL AST (14-36) U/L ALT (4-34) U/L Alkaline Phosphatase (38-126) U/L Total Protein (6.3-8.2) g/dL Albumin (3.5-5.0) g/dL 10/03/19 10/03/19 Range/Units 05:32 05:32 RBC 3.61 L (3.80-5.40) m/uL Hgb 11.0 L (11.4-16.0) gm/dL MCV 100.5 H (80.0-100.0) fL MCHC 30.4 L (31.0-37.0) g/dL Lymphocytes # 0.5 L (1.0-4.8) k/uL Chloride 108 H (98-107) mmol/L BUN 27 H (7-17) mg/dL Creatinine 1.67 H (0.52-1.04) mg/dL POC Glucose (mg/dL) (75-99) mg/dL Total Bilirubin 1.7 H (0.2-1.3) mg/dL Delta Bilirubin 1.3 H (0.0-0.2) mg/dL AST 46 H (14-36) U/L ALT 90 H (4-34) U/L Alkaline Phosphatase 303 H (38-126) U/L Total Protein 5.7 L (6.3-8.2) g/dL Albumin 2.8 L (3.5-5.0) g/dL Microbiology - Last 24 Hours (Table) 09/29/19 18:22 Blood Culture - Preliminary Blood No Growth after 72 hours Assessment and Plan (1) History of sleeve gastrectomy Current Visit: Yes Status: Acute Code(s): Z90.3 - ACQUIRED ABSENCE OF STOMACH [PART OF] SNOMED Code(s): 051510437057257 (2) Fibromyalgia Current Visit: Yes Status: Acute Code(s): M79.7 - FIBROMYALGIA SNOMED Code(s): 991868751 (3) Choledocholithiasis Current Visit: Yes Status: Acute Code(s): K80.50 - CALCULUS OF BILE DUCT W/O CHOLANGITIS OR CHOLECYST W/O OBST SNOMED Code(s): 924968913 (4) Chest pain Current Visit: Yes Status: Acute Code(s): R07.9 - CHEST PAIN, UNSPECIFIED SNOMED Code(s): 65266517 (5) Gallstone pancreatitis Current Visit: Yes Status: Acute Code(s): K85.10 - BILIARY ACUTE PANCREATITIS WITHOUT NECROSIS OR INFECTION SNOMED Code(s): 03993788 (6) Morbid obesity Current Visit: Yes Status: Acute Code(s): E66.01 - MORBID (SEVERE) OBESITY DUE TO EXCESS CALORIES SNOMED Code(s): 479229176 (7) Renal insufficiency Current Visit: No Status: Acute Code(s): N28.9 - DISORDER OF KIDNEY AND URETER, UNSPECIFIED SNOMED Code(s): 156269749
[2019-10-03 11:32] LABS: Glucose,Whole Blood 90 mg/dL (75-99)
--- NOTE | 2019-10-03 15:57 | CONS ---
CONSULTATION Mrs. Vivar is a 64-year-old female who presented with abdominal discomfort and lower chest discomfort, predominantly on the left side. She was evaluated by Dr. Estrada and Dr. Calero and was found to have cholelithiasis and she is scheduled to undergo surgical intervention on . The patient's activity level is somewhat limited. She sustained a stroke about 7 years ago and has some weakness in the left side. She denies any exertional chest discomfort. She has dyspnea on exertion, unchanged. She denies any dizziness or palpitation. She has no significant change in peripheral edema. No clear PND or orthopnea. On presentation she was diagnosed with acute gallstone pancreatitis. According to her, she has not undergone any recent cardiac workup. Her coronary risk factors are remarkable for history of hypertension, diabetes and hyperlipidemia. MEDICATIONS: Her medications include insulin, Topamax, Lyrica, Zestril 2.5 mg daily, insulin, Coreg 12.5 mg twice a day, Cymbalta, Plavix 75 mg daily, Lipitor 40 mg daily, aspirin once a day, amlodipine 10 mg daily and Protonix. REVIEW OF SYSTEMS: RESPIRATORY SYSTEM: She has dyspnea on exertion. No recent wheezing or cough. GI SYSTEM: No recent GI bleeding. No peptic ulcer disease. She had the abdominal discomfort, as noted. SYSTEM: No dysuria or hematuria. NERVOUS SYSTEM: She has a history of stroke. PHYSICAL EXAMINATION: She is a 64-year-old female, alert, oriented, in no apparent distress, overweight. Blood pressure running in the 110s to 150s with a heart rate in the 50s and 60s. HEAD: Normocephalic. Eyes: Sclerae anicteric. NECK: Good carotid upstroke. No bruit. No jugular venous distention. LUNGS: Clear to auscultation. HEART: Regular rate and rhythm. S1, S2. No S3, with a systolic ejection murmur heard at the base, ejection type. No diastolic murmur. No rub. ABDOMEN: Soft, obese. Epigastric and left upper quadrant tenderness. EXTREMITIES: Chronic skin changes. LAB DATA: Lab data revealed BUN and creatinine of 27 and 1.67, hemoglobin of 11.0, white blood cell count 4.18. It was 10.7 on presentation. Her total bilirubin is 1.7; that has come down from 3.6. Her AST is 46; it was 889 on presentation. Her ALT is 90. It was 325 on admission. Her EKG revealed a sinus mechanism, left axis deviation with evidence left ventricular hypertrophy. IMPRESSION: 1. Acute pancreatitis with cholelithiasis. 2. Chest discomfort, atypical for ischemic heart disease. 3. Hypertension. 4. Hyperlipidemia. 5. Diabetes mellitus. 6. Prior history of smoking. 7. Obesity. 8. Chronic kidney disease. RECOMMENDATION: In view of her multiple risk factors and the upcoming surgery, I would recommend to obtain an echocardiogram as well as myocardial perfusion imaging to rule out significant ischemia. If there is any abnormality, then further cardiac workup will be needed. Thank you for this consult. Will follow with you. MMODL / IJN: [id number] /
[2019-10-03 17:20] LABS: Glucose,Whole Blood 214 mg/dL (75-99)
--- NOTE | 2019-10-03 18:44 | ECHOF ---
Referral Reason:congestive heart failure MEASUREMENTS -------- HEIGHT: 177.8 cm WEIGHT: 104.3 kg BP: 151/76 RVIDd: 4.0 cm (< 3.3) IVSd: 1.2 cm (0.6 - 1.1) LVIDd: 4.2 cm (3.9 - 5.3) LVPWd: 1.2 cm (0.6 - 1.1) IVSs: 1.9 cm LVIDs: 2.2 cm LVPWs: 1.9 cm LAESV Index (A-L): 41.00 ml/m Ao Diam: 2.9 cm (2.0 - 3.7) AV Cusp: 1.6 cm (1.5 - 2.6) MV EXCURSION: 18.450 mm (> 18.000) MV EF SLOPE: 62 mm/s (70 - 150) EPSS: 0.3 cm MV E Alpesh: 1.24 m/s MV DecT: 205 ms MV A Alpesh: 1.09 m/s MV E/A Ratio: 1.14 RAP: 20.00 mmHg RVSP: 93.36 mmHg FINDINGS -------- Sinus rhythm. This was a technically difficult study with suboptimal views. The left ventricular size is normal. There is mild concentric left ventricular hypertrophy. Overa ll left ventricular systolic function is normal with, an EF between 55 - 60 %. Increased Lap Grade II Diastolic Dysfunction. The right ventricle is moderately enlarged. The right ventricular systolic function is mildly impai red. LA is severely dilated >40 ml/m2 The right atrium was not well visualized. 5.0mg of Lumason was utilized for enhancement of images Interatrial and interventricular septum intact. There is mild aortic valve sclerosis. There is no evidence of aortic regurgitation. There is no e vidence of aortic stenosis. Mild mitral annular calcification present. [id number] mitral regurgitation is present. Moderate to severe tricuspid regurgitation present. There is severe pulmonary hypertension. The r ight ventricular systolic pressure, as measured by Doppler, is 93.36mmHg. There is no pulmonic regurgitation present. The aortic root size is normal. The inferior vena cava is dilated with poor inspiratory collapse which is consistent with estimated r ight atrial pressure of 20 mmHg. There is no pericardial effusion. CONCLUSIONS -------- 1. There is mild concentric left ventricular hypertrophy. 2. Overall left ventricular systolic function is normal with, an EF between 55 - 60 %. 3. Increased Lap Grade II Diastolic Dysfunction. 4. The right ventricle is moderately enlarged. 5. LA is severely dilated >40 ml/m2 6. There is mild aortic valve sclerosis. 7. Mild mitral annular calcification present. 8. [id number] mitral regurgitation is present. 9. Moderate to severe tricuspid regurgitation present. 10. There is severe pulmonary hypertension. 11. The inferior vena cava is dilated with poor inspiratory collapse which is consistent with estimat ed right atrial pressure of 20 mmHg. 12. There is no pericardial effusion. DOOR CLOSER: Elinor Wolff RDCS
[2019-10-03 19:53] LABS: Glucose,Whole Blood 298 mg/dL (75-99)
[2019-10-03] MEDS: INSULIN DETEMIR (LEVEMIR) 100 UNIT/ML SYR SQ SCH (21:06)
--- NOTE | 2019-10-03 23:14 | P.PN ---
Subjective This is a pleasant 64 years old female with past medical history of morbid obesity, obstructive sleep apnea, previous strokes with left-sided hemiparesis, diabetes mellitus, chronic lower extremity edema, hypertension, rheumatoid arthritis, gastroesophageal reflux disease, chronic kidney disease, previous stage II coccygeal ulcer, depression, previous gastric sleeve bypass in 2015. She is a patient of the [facility], also she sees Dr. Martinez for stroke and Dr. Samano for her diabetes. Patient presents because of upper abdominal pain, more on the left side than the right side but patient has previous gastric sleeve surgery, then is below her left breast at the maximum point, nonradiating, felt like pressure was 7/10 in severity, started about one hour and a half before, to emergency room associated with nausea but no vomiting. Patient has regular bowel movement yesterday morning when she took Pepto-Bismol. She felt feverish with chills. She has no chest pain or dyspnea. No coughing. She denies smoking or alcohol use. She denies suicidal or signs symptoms of depression, no hallucination. on admission she has a fever 101.6. Personal vitals are stable. Labs showed leukocytosis of 10.7 K, INR is normal, creatinine is slightly elevated at 1.1, rest of BMP is unremarkable. Liver enzymes are elevated with AST 889, ALT 325, serial troponins are negative with less than 0.012. Lipase is elevated at 2815. Bilirubin is elevated 2.1 Gallbladder ultrasound, multiple gallstones but no dilated intrahepatic bile duct. Gallbladder is markedly dilated and measures 5 cm in centimeter suggestive of gallbladder dysfunction or cholecystitis EKG showing normal sinus rhythm at [address]-T changes, possible LVH with QTC 441, Chest CTA: No evidence of pulmonary embolism. Hiatal hernia, atelectasis An emergency room patient was started on Unasyn and aspirin 324 mg. 1 L of normal saline and a one-time dose of IV labetalol GI and surgery team or consulted from ER A 2220 Patient has no abdominal pain although upper abdomen is still slightly tender, no nausea vomiting, she did not have bowel movement or passing gases. She is hemodynamically stable. The loops he is back to normal. Creatinine is trending up 2.1, we'll check bladder scan and renal ultrasound and nephrology consult. MRCP showed acute on chronic cholecystitis with no dilated common bile duct and no signs of obstruction. Her fever and leukocytosis has improved, patient may not have infection. We'll check pro-calcitonin and if his elevated on we will continue with antibiotic. Then This unlikely patient has cholangitis, and its due to pancreatitis Currently she is on normal saline and Zosyn. Liver enzymes are trending down Patient is on normal saline 75 mL/h 10/02/2019 Patient is awake and alert, she does not have very good appetite however she is eating her liquid diet which advanced today to soft/regular diet as tolerated, she has no abdominal pain but she did not last bowel movement except gases. Her sugar was low this morning and she confirmed to me she was taken Lantus 32 units at bedtime and 14 units with meals, we will lowered her Levemir from 32 down to 20 units and advance diet and thus will help with her sugar, F sugar remains low we will change her normal saline to D5 normal saline and I discussed with the staff. She still needs IV antibiotics and she is currently on Zosyn. CBC and BMP are stable, creatinine is coming down, her renal ultrasound is unremarkable. Her liver enzymes are trending down No indication for ERCP today. We will follow up with surgery team for possible need for cholecystectomy 10/03/2019 Patient is still symptomatic today she has nausea with her Diet, she still have some abdominal pain in the left upper abdomen. She still constipated did not have bowel movement since hospitalized however she is passing GASES. surgery team planned for cholecystectomy on . We will ask for cardiology clearance who recommended echocardiogram and is pending Plavix is on hold, she continues on aspirin. CBC is improving with normal WBC. Her labs improving with trending down bilirubin and liver enzymes. Creatinine is trending down with IV fluid 2.3 down to 1.8, patient has no fever for 48 hours, she remains on Zosyn currently Objective - Vital Signs Vital signs: Vital Signs Temp 98.5 F 10/03/19 12:01 Pulse 58 L 10/03/19 12:01 Resp 20 10/03/19 12:01 BP 151/76 10/03/19 12:01 Pulse Ox 97 10/03/19 12:01 Intake & Output 10/02/19 10/03/19 10/03/19 18:59 06:59 18:59 Intake Total 2150 1180 400 Balance 2150 1180 400 Intake: Intake, IV Titration 1000 400 Amount Piperacillin-Tazobactam 3 100 100 .375 gm In Sodium Chloride 0.9% 100 ml @ 25 mls/hr IVPB Q8HR [facility] Rx# :[id number] Sodium Chloride 0.9% 1, 900 300 000 ml @ 75 mls/hr IV . [id number] [facility] Rx#:[id number] Oral 1150 1180 Other: Voiding Method Bedside Commode Bedside Commode Bedside Commode Incontinent Incontinent # Voids 3 3 3 - Exam GENERAL: The patient is alert and oriented x3, not in any acute distress. Well developed, well nourished. HEENT: Pupils are round and equally reacting to light. EOMI. No scleral icterus. No conjunctival pallor. Normocephalic, atraumatic. No pharyngeal erythema. No thyromegaly. CARDIOVASCULAR: S1 and S2 present. No murmurs, rubs, or gallops. PULMONARY: Chest is clear to auscultation, no wheezing or crackles. ABDOMEN: Soft, nontender, nondistended, normoactive bowel sounds. No palpable organomegaly. MUSCULOSKELETAL: No joint swelling or deformity. EXTREMITIES: No cyanosis, clubbing, or pedal edema. NEUROLOGICAL: Gross neurological examination did not reveal any focal deficits. SKIN: No rashes. no petechiae. - Labs CBC & Chem 7: 10/03/19 05:32 10/03/19 05:32 Labs: Abnormal Lab Results - Last 24 Hours (Table) 10/02/19 10/03/19 10/03/19 Range/Units 20:03 03:27 05:32 RBC 3.61 L (3.80-5.40) m/uL Hgb 11.0 L (11.4-16.0) gm/dL MCV 100.5 H (80.0-100.0) fL MCHC 30.4 L (31.0-37.0) g/dL Lymphocytes # 0.5 L (1.0-4.8) k/uL Chloride (98-107) mmol/L BUN (7-17) mg/dL Creatinine (0.52-1.04) mg/dL POC Glucose (mg/dL) 153 H 65 L (75-99) mg/dL Total Bilirubin (0.2-1.3) mg/dL Delta Bilirubin (0.0-0.2) mg/dL AST (14-36) U/L ALT (4-34) U/L Alkaline Phosphatase (38-126) U/L Total Protein (6.3-8.2) g/dL Albumin (3.5-5.0) g/dL 10/03/19 Range/Units 05:32 RBC (3.80-5.40) m/uL Hgb (11.4-16.0) gm/dL MCV (80.0-100.0) fL MCHC (31.0-37.0) g/dL Lymphocytes # (1.0-4.8) k/uL Chloride 108 H (98-107) mmol/L BUN 27 H (7-17) mg/dL Creatinine 1.67 H (0.52-1.04) mg/dL POC Glucose (mg/dL) (75-99) mg/dL Total Bilirubin 1.7 H (0.2-1.3) mg/dL Delta Bilirubin 1.3 H (0.0-0.2) mg/dL AST 46 H (14-36) U/L ALT 90 H (4-34) U/L Alkaline Phosphatase 303 H (38-126) U/L Total Protein 5.7 L (6.3-8.2) g/dL Albumin 2.8 L (3.5-5.0) g/dL Microbiology - Last 24 Hours (Table) 09/29/19 18:22 Blood Culture - Preliminary Blood No Growth after 72 hours Assessment and Plan Assessment: Acute gallstone pancreatitis Elevated liver enzymes secondary to gallstone pancreatitis Acute kidney injury, present on admission, improving Sepsis with positive SIRS with fever and leukocytosis, Mostly secondary to acute cholangitis Dilated gallbladder suspicious for gallbladder dysfunction or cholecystitis, However MRCP no dilated common bile duct Hiatal hernia Morbid obesity Obstructive sleep apnea previous stroke with left hemiparesis Diabetes mellitus Chronic lower extremity edema Hypertension Rheumatoid arthritis GERD Chronic kidney disease Previous stage II coccygeal Depression previous gastric sleeve surgery Plan: This is a pleasant 64 years old female who presents with chest pain, sepsis and pancreatitis. Continue with antibiotics to Zosyn. Blood culture. . Follow-up recommendation by GI and surgery teams Follow-up echocardiogram. Patient is going for surgery on Labs and medication were reviewed.. Continue same treatment. Continue with symptomatic treatment. Resume home medication. Monitor lytes and vitals. DVT and GI prophylaxis. Further recommendations of the clinical course of the patient DVT prophylaxis: Subcutaneous heparin GI Prophylaxis: Ppi Prognosis is guarded
[2019-10-04] MEDS: oxyCODONE-APAP 10-325MG 1 EACH TAB PO PRN ×2 (01:17→15:44)
[2019-10-04 02:15] LABS: Glucose,Whole Blood 118 mg/dL (75-99)
[2019-10-04 05:37] LABS: Glucose,Whole Blood 114 mg/dL (75-99)
[2019-10-04] MEDS ORDERED: REGADENOSON 0.4 MG/5 ML SYRINGE IV ONE (07:00)
[2019-10-04] MEDS ORDERED: AMINOPHYLLINE 500 MG/20 ML VIAL IV PRN (07:00)
[2019-10-04] MEDS ORDERED: CAFFEINE CITRATE 60 MG/3 ML VIAL IV PRN (07:00)
[2019-10-04 07:10] LABS: Glucose,Whole Blood 119 mg/dL (75-99)
[2019-10-04] MEDS: INSULIN ASPART (NovoLOG) 100 UNIT/ML VIAL SQ SCH ×4 (07:16→20:22)
[2019-10-04] MEDS: carvediloL 12.5 MG TAB PO SCH ×2 (07:30→17:40)
[2019-10-04 07:40] LABS: Basophils % (A) 0 %; Eosinophils # (A) 0.2 k/uL (0-0.7); Eosinophils % (A) 3 %; HGB 11.7 gm/dL (11.4-16.0); Hypochromasia Marked; Lymphocytes # (A) 0.6 k/uL (1.0-4.8); Lymphocytes % (A) 13 %; MCH 30.4 pg (25.0-35.0); MCV 101.3 fL (80.0-100.0); Macrocytosis Slight; Mean Platelet Volume 8.2; Monocytes # (A) 0.3 k/uL (0-1.0); Monocytes % (A) 7 %; Neutrophils # (A) 3.6 k/uL (1.3-7.7); Neutrophils % (A) 75 %; Platelet Count 180 k/uL (150-450); RBC 3.86 m/uL (3.80-5.40); RDW 13.6 % (11.5-15.5); WBC 4.8 k/uL (3.8-10.6)
[2019-10-04] MEDS: HEPARIN SODIUM,PORCINE 5,000 UNIT/ML 1 ML VIAL SQ SCH ×2 (07:44→20:22)
[2019-10-04] MEDS: ASPIRIN 81 MG PO SCH (07:44)
[2019-10-04] MEDS: ATORVASTATIN 40 MG TAB PO SCH (08:04)
[2019-10-04] MEDS: DULoxetine HCL 60 MG CAPSULE.DR PO SCH ×2 (08:04→20:22)
[2019-10-04] MEDS: PIPERACILLIN-TAZOBACTAM 3.375 GM in SODIUM CHLORIDE 0.9% 100 ML IVPB SCH ×2 (08:04→15:44)
[2019-10-04] MEDS: PANTOPRAZOLE 40 MG TABLET PO SCH (08:04)
[2019-10-04] MEDS: PREGABALIN 75 MG CAP PO SCH ×2 (08:04→20:23)
[2019-10-04] MEDS: FERROUS SULFATE 325 MG TAB PO SCH (08:04)
[2019-10-04] MEDS: amLODIPine 10 MG TAB PO SCH (08:04)
[2019-10-04] MEDS: TOPIRAMATE 25 MG TAB PO SCH ×2 (08:06→20:23)
[2019-10-04 11:31] LABS: Glucose,Whole Blood 149 mg/dL (75-99)
--- NOTE | 2019-10-04 11:34 | PN ---
PROGRESS NOTE Mrs. Vivar is a 64-year-old female who presented with abdominal discomfort and chest discomfort, was found to have cholelithiasis, scheduled to undergo surgical intervention. She has a history of stroke in the past and has been on Plavix. She is feeling reasonably well this morning. Her breathing is stable. She has no chest pain. She continued to have mild abdominal discomfort. She denies any dizziness or palpitation. She denies any nausea. She continues to be at this time on aspirin once a day, amlodipine 10 mg daily, Lipitor 40 mg daily, Coreg 12.5 mg twice a day, lisinopril 2.5 mg daily. PHYSICAL EXAMINATION: Blood pressure running in the 110s to 150s with a heart rate in the 60s. LUNGS: Clear. HEART: Regular rate and rhythm, S1, S2. No S3. No rub with systolic murmur. ABDOMEN: Soft. Mild epigastric and left upper quadrant tenderness. EXTREMITIES: With mild edema. Echocardiogram performed yesterday revealed a preserved ventricular size and systolic function with evidence of [id number] mitral and moderate to severe tricuspid regurgitation with severe pulmonary hypertension of unknown duration. IMPRESSION: 1. Cholelithiasis, scheduled to undergo surgical intervention. 2. Prior history of stroke. 3. History of hypertension. 4. History of hyperlipidemia. 5. History of diabetes mellitus. RECOMMENDATION: Patient will undergo a myocardial perfusion imaging to further assess her status and guide her treatment. In the meantime, will continue to follow her renal function closely as well as her blood pressure to see further adjustment of her antihypertensives regimen is needed. Depending on results of testing, further recommendation will be made. MMODL / IJN: [id number] /
--- NOTE | 2019-10-04 12:42 | NM ---
EXAMINATION TYPE: NM stress lexiscan cardiolite DATE OF EXAM: 10/04/2019 COMPARISON: NONE HISTORY: chest pain TECHNIQUE: After the intravenous administration of 10.2 mCi Tc 99m Sestamibi - Cardiolite resting SP ECT images acquired 45 minutes post injection. The patient received 0.4mg Lexiscan, 27.1 mCi Tc 99m Sestamibi - Stress images obtained [address] injection FINDINGS: Review of stress and rest SPECT images demonstrates no distinct perfusion abnormality. Gated analysi s shows normal wall motion with an estimated left ventricular ejection fraction of 67 %. IMPRESSION: No scintigraphic evidence for reversible ischemia.
--- NOTE | 2019-10-04 13:06 | EST ---
EXERCISE STRESS AGE: 64 SEX: F HT: 5'10" WT: 290 lbs. PROTOCOL: Lexiscan Cardiolite STAGE: DURATION OF EXERCISE: HEART RATE REST: 61 BLOOD PRESSURE REST: 201/90 MAXIMUM HEART RATE ACHIEVED: 74 MAXIMUM BLOOD PRESSURE: 201/90 85% MPHR: 132 100% MPHR: 155 METS: INDICATIONS: Chest pain. CLINICAL INFORMATION: Baseline rhythm is sinus mechanism, rate 61, left axis deviation, poor R-wave progression. Baseline blood pressure 201/90 mmHg. Patient received an injection of Lexiscan. Electrocardiograph monitoring revealed no evidence of diagnostic ischemic ST- segment deviation. Cardiolite was injected per protocol. CONCLUSION: 1. Nondiagnostic electrocardiograph stress testing. 2. Nuclear images will be reported separately. MMODL / IJN: [id number] /
--- NOTE | 2019-10-04 14:04 | P.PN ---
Subjective Progress Note Date: 10/04/19 Principal diagnosis: This is a pleasant 64 years old female with past medical history of morbid obesity, obstructive sleep apnea, previous strokes with left-sided hemiparesis, diabetes mellitus, chronic lower extremity edema, hypertension, rheumatoid arthritis, gastroesophageal reflux disease, chronic kidney disease, previous stage II coccygeal ulcer, depression, previous gastric sleeve bypass in 2014. She is a patient of the [facility], also she sees Dr. Martinez for stroke and Dr. Samano for her diabetes. Patient presents because of upper abdominal pain, more on the left side than the right side but patient has previous gastric sleeve surgery, then is below her left breast at the maximum point, nonradiating, felt like pressure was 7/10 in severity, started about one hour and a half before, to emergency room associated with nausea but no vomiting. Patient has regular bow el movement yesterday morning when she took Pepto-Bismol. She felt feverish with chills. She has no chest pain or dyspnea. No coughing. She denies smoking or alcohol use. She denies suicidal or signs symptoms of depression, no hallucination. on admission she has a fever 101.6. Personal vitals are stable. Labs showed leukocytosis of 10.7 K, INR is normal, creatinine is slightly elevated at 1.1, rest of BMP is unremarkable. Liver enzymes are elevated with AST 889, ALT 325, serial troponins are negative with less than 0.012. Lipase is elevated at 2815. Bilirubin is elevated 2.1 Gallbladder ultrasound, multiple gallstones but no dilated intrahepatic bile duct. Gallbladder is markedly dilated and measures 5 cm in centimeter suggestive of gallbladder dysfunction or cholecystitis EKG showing normal sinus rhythm at [address]-T changes, possible LVH with QTC 441, Chest CTA: No evidence of pulmonary embolism. Hiatal hernia, atelectasis An emergency room patient was started on Unasyn and aspirin 324 mg. 1 L of normal saline and a one-time dose of IV labetalol GI and surgery team or consulted from ER A 2220 Patient has no abdominal pain although upper abdomen is still slightly tender, no nausea vomiting, she did not have bowel movement or passing gases. She is hemodynamically stable. The loops he is back to normal. Creatinine is trending up 2.1, we'll check bladder scan and renal ultrasound and nephrology consult. MRCP showed acute on chronic cholecystitis with no dilated common bile duct and no signs of obstruction. Her fever and leukocytosis has improved, patient may not have infection. We'll check pro-calcitonin and if his elevated on we will continue with antibiotic. Then This unlikely patient has cholangitis, and its due to pancreatitis Currently she is on normal saline and Zosyn. Liver enzymes are trending down Patient is on normal saline 75 mL/h 10/02/2019 Patient is awake and alert, she does not have very good appetite however she is eating her liquid diet which advanced today to soft/regular diet as tolerated, she has no abdominal pain but she did not last bowel movement except gases. Her sugar was low this morning and she confirmed to me she was taken Lantus 32 units at bedtime and 14 units with meals, we will lowered her Levemir from 32 down to 20 units and advance diet and thus will help with her sugar, F sugar remains low we will change her normal saline to D5 normal saline and I discussed with the staff. She still needs IV antibiotics and she is currently on Zosyn. CBC and BMP are stable, creatinine is coming down, her renal ultrasound is unremarkable. Her liver enzymes are trending down No indication for ERCP today. We will follow up with surgery team for possible need for cholecystectomy 10/03/2019 Patient is still symptomatic today she has nausea with her Diet, she still have some abdominal pain in the left upper abdomen. She still constipated did not have bowel movement since hospitalized however she is passing GASES. surgery team planned for cholecystectomy on . We will ask for cardiology clearance who recommended echocardiogram and is pending Plavix is on hold, she continues on aspirin. CBC is improving with normal WBC. Her labs improving with trending down bilirubin and liver enzymes. Creatinine is trending down with IV fluid 2.3 down to 1.8, patient has no fever for 48 hours, she remains on Zosyn currently 10/04/2019 Patient is seen and evaluated and follow-up continues to have some abdominal discomfort and being evaluated by surgery along with cardiology for surgical c learance. Patient underwent an echo showing overall left ventricular systolic function is normal with an EF between 55 and 60%, increased lap grade 2 diastolic dysfunction with mild to moderate mitral regurgitation and moderate to severe tricuspid regurgitation present. Patient is to undergo a stress test for further evaluation. If cardiology clears patient will undergo cholecystectomy this with Dr. Calero. Patient is currently maintained on a low fat consistent carb dysphagia 3 Diet and will continue at this time. Patient normally takes aspirin and Plavix although are currently on hold for upcoming surgery this . Will repeat a.m. labs. Review of systems: Constitutional: No reports of fatigue, fever, or chills Cardiovascular: No reports of chest pain or palpitations Respiratory: No reports of shortness of breath or cough GI: Reports intermittent nausea, no reports of vomiting, or diarrhea, reports abdominal discomfort : No reports of dysuria or retention Neurovascular: No reports of weakness or numbness All medications have been reviewed Objective - Vital Signs Vital signs: Vital Signs Temp 98.0 F 10/04/19 11:15 Pulse 58 L 10/04/19 11:15 Resp 16 10/04/19 11:15 BP 163/60 10/04/19 11:15 Pulse Ox 97 10/04/19 11:15 Intake & Output 10/03/19 10/04/19 10/04/19 18:59 06:59 18:59 Intake Total 940 790 Balance 940 790 Weight 132 kg Intake: Intake, IV Titration 400 200 Amount Piperacillin-Tazobactam 3 100 200 .375 gm In Sodium Chloride 0.9% 100 ml @ 25 mls/hr IVPB Q8HR [facility] Rx# :[id number] Sodium Chloride 0.9% 1, 300 000 ml @ 75 mls/hr IV . [id number] [facility] Rx#:[id number] Oral 540 590 Other: Voiding Method Bedside Commode Bedside Commode Bedside Commode Incontinent Diaper Diaper Incontinent Incontinent # Voids 3 2 1 - Exam GENERAL: The patient is alert and oriented x3, not in any acute distress. Well developed, well nourished. HEENT: Pupils are round and equally reacting to light. EOMI. No scleral icterus. No conjunctival pallor. Normocephalic, atraumatic. No pharyngeal erythema. No thyromegaly. CARDIOVASCULAR: S1 and S2 present. No murmurs, rubs, or gallops. PULMONARY: Diminished breath sounds bilaterally with no wheezing or crackles. ABDOMEN: Soft, mildly tender upon palpation, nondistended, normoactive bowel sounds. No palpable organomegaly. MUSCULOSKELETAL: No joint swelling or deformity. EXTREMITIES: No cyanosis, clubbing, or pedal edema. NEUROLOGICAL: Gross neurological examination did not reveal any focal deficits. SKIN: No rashes. no petechiae. - Labs CBC & Chem 7: 10/04/19 06:54 10/03/19 05:32 Labs: Abnormal Lab Results - Last 24 Hours (Table) 10/03/19 10/03/19 10/04/19 Range/Units 17:10 19:52 02:08 MCV (80.0-100.0) fL MCHC (31.0-37.0) g/dL Lymphocytes # (1.0-4.8) k/uL POC Glucose (mg/dL) 214 H 298 H 118 H (75-99) mg/dL 10/04/19 10/04/19 10/04/19 Range/Units 05:33 06:54 06:57 MCV 101.3 H (80.0-100.0) fL MCHC 30.0 L (31.0-37.0) g/dL Lymphocytes # 0.6 L (1.0-4.8) k/uL POC Glucose (mg/dL) 114 H 119 H (75-99) mg/dL 10/04/19 Range/Units 11:20 MCV (80.0-100.0) fL MCHC (31.0-37.0) g/dL Lymphocytes # (1.0-4.8) k/uL POC Glucose (mg/dL) 149 H (75-99) mg/dL Microbiology - Last 24 Hours (Table) 09/29/19 18:22 Blood Culture - Preliminary Blood No Growth after 96 hours Assessment and Plan Assessment: Acute gallstone pancreatitis Elevated liver enzymes secondary to gallstone pancreatitis Acute kidney injury, present on admission, improving Sepsis with positive SIRS with fever and leukocytosis, Mostly secondary to acute cholangitis Dilated gallbladder suspicious for gallbladder dysfunction or cholecystitis, However MRCP no dilated common bile duct Hiatal hernia Morbid obesity Obstructive sleep apnea previous stroke with left hemiparesis Diabetes mellitus Chronic lower extremity edema Hypertension Rheumatoid arthritis GERD Chronic kidney disease Previous stage II coccygeal Depression previous gastric sleeve surgery GI prophylaxis: Protonix DVT prophylaxis: Subcu heparin Plan: Continue current medications, management, and symptomatic treatment. Patient is currently maintained on IV antibiotics in the form of Zosyn and will continue. Surgery and cardiology along with GI following. Patient to undergo stress test today for surgical clearance. Patient underwent echocardiogram as mentioned previously. Will repeat a.m. labs. Further recommendations to follow based on the clinical course of the patient.
--- NOTE | 2019-10-04 14:17 | P.PN ---
<Elsy Kan - Last Filed: 10/04/19 14:11> Subjective Progress Note Date: 10/04/19 CHIEF COMPLAINT: Gallstone pancreatitis HISTORY OF PRESENT ILLNESS: Alma Vivar is a 64-year-old female admitted for gallstone pancreatitis with elevated total bilirubin to 3.6 including elevated AST ALT and lipase. Patient is currently tolerating low fat diet. Patient was evaluated by cardiology for cardiac clearance. Stress test showed no evidence for reversible ischemia. Echo shows EF 55-6% mild to moderate mitral regurgitation, moderate to severe tricuspid regurgitation, severe pulmonary hypertension. Patient afebrile. WBC 4.8 hemoglobin 11.7 PHYSICAL EXAM: VITAL SIGNS: Reviewed GENERAL: Well-developed in no acute distress. HEENT: No sclera icterus. Extraocular movements grossly intact. Moist buccal mucosa. Head is atraumatic, normocephalic. Hears conversational speech. No nasal drainage. NECK: Supple without lymphadenopathy. CHEST: Non-labored respirations and equal bilateral excursions. CARDIOVASCULAR: Regular rate with regular rhythm. Palpable 2+ radial pulses. ABDOMEN: Soft. Nondistended. Nontender. MUSCULOSKELETAL: No clubbing or cyanosis. NEUROLOGIC: No focal or lateralizing signs. Cranial nerves II through XII grossly intact. PSYCH: Appropriate affect. Alert and oriented to person, place and time. SKIN: Well perfused. Good skin turgor. ASSESSMENT: 1. Gallstone pancreatitis 2. History of super morbid obesity BMI of 49 down to 33.7 2. Fibromyalgia. 3. Chronic pain syndrome. 4. Diabetes type 2 insulin dependent. 5. Cardiomyopathy. 6. History of stroke. 7. Iron-deficiency anemia. 8. Depression. 9. Chronic pain syndrome. 10. Renal insufficiency. 11. Status post sleeve gastrectomy PLAN: -Patient is scheduled for robotic cholecystectomy with Dr. Calero on 10/06/2019 -Last dose of Plavix, 3 days ago. Will need at least 5 days of Plavix prior to surgical intervention. -Continue low-fat diet. Physician Fingerprint Expert note has been reviewed by physician. Signing provider agrees with the documented findings, assessment, and plan of care. Objective - Vital Signs Vital signs: Vital Signs Temp 98.0 F 10/04/19 11:15 Pulse 58 L 10/04/19 11:15 Resp 16 10/04/19 11:15 BP 163/60 10/04/19 11:15 Pulse Ox 97 10/04/19 11:15 Intake & Output 10/03/19 10/04/19 10/04/19 18:59 06:59 18:59 Intake Total 940 790 Balance 940 790 Weight 132 kg Intake: Intake, IV Titration 400 200 Amount Piperacillin-Tazobactam 3 100 200 .375 gm In Sodium Chloride 0.9% 100 ml @ 25 mls/hr IVPB Q8HR [facility] Rx# :[id number] Sodium Chloride 0.9% 1, 300 000 ml @ 75 mls/hr IV . [id number] [facility] Rx#:[id number] Oral 540 590 Other: Voiding Method Bedside Commode Bedside Commode Bedside Commode Incontinent Diaper Diaper Incontinent Incontinent # Voids 3 2 1 - Labs CBC & Chem 7: 10/04/19 06:54 10/03/19 05:32 Labs: Abnormal Lab Results - Last 24 Hours (Table) 10/03/19 10/03/19 10/04/19 Range/Units 17:10 19:52 02:08 MCV (80.0-100.0) fL MCHC (31.0-37.0) g/dL Lymphocytes # (1.0-4.8) k/uL POC Glucose (mg/dL) 214 H 298 H 118 H (75-99) mg/dL 10/04/19 10/04/19 10/04/19 Range/Units 05:33 06:54 06:57 MCV 101.3 H (80.0-100.0) fL MCHC 30.0 L (31.0-37.0) g/dL Lymphocytes # 0.6 L (1.0-4.8) k/uL POC Glucose (mg/dL) 114 H 119 H (75-99) mg/dL 10/04/19 Range/Units 11:20 MCV (80.0-100.0) fL MCHC (31.0-37.0) g/dL Lymphocytes # (1.0-4.8) k/uL POC Glucose (mg/dL) 149 H (75-99) mg/dL Microbiology - Last 24 Hours (Table) 09/29/19 18:22 Blood Culture - Preliminary Blood No Growth after 96 hours <Breann Calero - Last Filed: 10/05/19 18:18> Subjective Patient seen and evaluated with above. Additional recommendations below. Patient reports particularly left upper quadrant abdominal pain. She's been tolerating low-fat diet. At this time, cardiology workup still pending. ABDOMEN: Tender left upper quadrant. No peritonitis. LABS: White blood cell count normal. Lipase normal limits. STUDIES: I personally reviewed her echo demonstrated an ejection fraction of 55%. Evidence of severe pulmonary hypertension noted. No global wall ischemia. PLAN: 1. Awaiting cardiac clearance prior to any surgical intervention. 2. Overall, with patient's pre-existing pulmonary hypertension which is moderate including prior history of stroke and morbid obesity, patient is elevated risk for perioperative surgical complications from a surgical standpoint Objective - Vital Signs Vital signs: Vital Signs Temp 98.4 F 10/05/19 11:57 Pulse 60 10/05/19 11:57 Resp 18 10/05/19 11:57 BP 171/71 10/05/19 11:57 Pulse Ox 94 L 10/05/19 11:57 Intake & Output 10/04/19 10/05/19 10/05/19 18:59 06:59 18:59 Intake Total 990 Output Total 200 Balance 990 -200 Weight 132 kg 132 kg Intake: Intake, IV Titration 100 Amount Piperacillin-Tazobactam 3 100 .375 gm In Sodium Chloride 0.9% 100 ml @ 25 mls/hr IVPB Q8HR [facility] Rx# :[id number] Oral 890 Output: Urine 200 Other: Voiding Method Bedside Commode Bedside Commode Bedside Commode Diaper Diaper Diaper Incontinent Incontinent Incontinent # Voids 1 2 6 # Bowel Movements 1 - Labs CBC & Chem 7: 10/05/19 07:44 10/05/19 07:44 Labs: Abnormal Lab Results - Last 24 Hours (Table) 10/04/19 10/05/19 10/05/19 Range/Units 20:16 02:06 07:03 MCV (80.0-100.0) fL MCHC (31.0-37.0) g/dL Lymphocytes # (1.0-4.8) k/uL BUN (7-17) mg/dL Creatinine (0.52-1.04) mg/dL Glucose (74-99) mg/dL POC Glucose (mg/dL) 253 H 135 H 123 H (75-99) mg/dL 10/05/19 10/05/19 10/05/19 Range/Units 07:44 07:44 11:21 MCV 100.5 H (80.0-100.0) fL MCHC 29.8 L (31.0-37.0) g/dL Lymphocytes # 0.7 L (1.0-4.8) k/uL BUN 19 H (7-17) mg/dL Creatinine 1.27 H (0.52-1.04) mg/dL Glucose 130 H (74-99) mg/dL POC Glucose (mg/dL) 178 H (75-99) mg/dL 10/05/19 Range/Units 17:10 MCV (80.0-100.0) fL MCHC (31.0-37.0) g/dL Lymphocytes # (1.0-4.8) k/uL BUN (7-17) mg/dL Creatinine (0.52-1.04) mg/dL Glucose (74-99) mg/dL POC Glucose (mg/dL) 256 H (75-99) mg/dL Microbiology - Last 24 Hours (Table) 09/29/19 18:22 Blood Culture - Preliminary Blood No Growth after 120 hours Assessment and Plan (1) History of sleeve gastrectomy Current Visit: Yes Status: Acute Code(s): Z90.3 - ACQUIRED ABSENCE OF STOMACH [PART OF] SNOMED Code(s): 965917167522961 (2) Fibromyalgia Current Visit: Yes Status: Acute Code(s): M79.7 - FIBROMYALGIA SNOMED Code(s): 816797311 (3) Choledocholithiasis Current Visit: Yes Status: Acute Code(s): K80.50 - CALCULUS OF BILE DUCT W/O CHOLANGITIS OR CHOLECYST W/O OBST SNOMED Code(s): 430699210 (4) Chest pain Current Visit: Yes Status: Acute Code(s): R07.9 - CHEST PAIN, UNSPECIFIED SNOMED Code(s): 20690619 (5) Gallstone pancreatitis Current Visit: Yes Status: Acute Code(s): K85.10 - BILIARY ACUTE PANCREATITIS WITHOUT NECROSIS OR INFECTION SNOMED Code(s): 52049422 (6) Morbid obesity Current Visit: Yes Status: Acute Code(s): E66.01 - MORBID (SEVERE) OBESITY DUE TO EXCESS CALORIES SNOMED Code(s): 019810696 (7) Renal insufficiency Current Visit: No Status: Acute Code(s): N28.9 - DISORDER OF KIDNEY AND URETER, UNSPECIFIED SNOMED Code(s): 501320655
[2019-10-04 17:21] LABS: Glucose,Whole Blood 253 mg/dL (75-99)
[2019-10-04] MEDS: INSULIN DETEMIR (LEVEMIR) 100 UNIT/ML SYR SQ SCH (20:23)
[2019-10-04 20:26] LABS: Glucose,Whole Blood 253 mg/dL (75-99)
[2019-10-05] MEDS: PIPERACILLIN-TAZOBACTAM 3.375 GM in SODIUM CHLORIDE 0.9% 100 ML IVPB SCH ×3 (00:01→15:49)
[2019-10-05 02:18] LABS: Glucose,Whole Blood 135 mg/dL (75-99)
[2019-10-05] MEDS: oxyCODONE-APAP 10-325MG 1 EACH TAB PO PRN ×3 (03:13→21:16)
[2019-10-05 07:05] LABS: Glucose,Whole Blood 123 mg/dL (75-99)
[2019-10-05] MEDS: INSULIN ASPART (NovoLOG) 100 UNIT/ML VIAL SQ SCH ×4 (07:21→21:16)
[2019-10-05] MEDS: DULoxetine HCL 60 MG CAPSULE.DR PO SCH ×2 (07:35→21:17)
[2019-10-05] MEDS: PANTOPRAZOLE 40 MG TABLET PO SCH (07:36)
[2019-10-05] MEDS: ATORVASTATIN 40 MG TAB PO SCH (07:36)
[2019-10-05] MEDS: carvediloL 12.5 MG TAB PO SCH ×2 (07:36→17:26)
[2019-10-05] MEDS: FERROUS SULFATE 325 MG TAB PO SCH (07:36)
[2019-10-05] MEDS: PREGABALIN 75 MG CAP PO SCH ×2 (07:36→21:19)
[2019-10-05] MEDS: HEPARIN SODIUM,PORCINE 5,000 UNIT/ML 1 ML VIAL SQ SCH ×2 (07:37→21:23)
[2019-10-05] MEDS: TOPIRAMATE 25 MG TAB PO SCH ×2 (07:37→21:19)
[2019-10-05] MEDS: ASPIRIN 81 MG PO SCH (07:39)
[2019-10-05] MEDS: amLODIPine 10 MG TAB PO SCH (07:42)
[2019-10-05 08:36] LABS: Basophils % (A) 1 %; Eosinophils # (A) 0.1 k/uL (0-0.7); Eosinophils % (A) 3 %; HCT 38.5 % (34.0-46.0); HGB 11.5 gm/dL (11.4-16.0); Hypochromasia Marked; Lymphocytes # (A) 0.7 k/uL (1.0-4.8); Lymphocytes % (A) 16 %; MCH 29.9 pg (25.0-35.0); MCHC 29.8 g/dL (31.0-37.0); MCV 100.5 fL (80.0-100.0); Mean Platelet Volume 7.9; Monocytes # (A) 0.2 k/uL (0-1.0); Monocytes % (A) 5 %; Neutrophils # (A) 3.2 k/uL (1.3-7.7); Neutrophils % (A) 73 %; Platelet Count 178 k/uL (150-450); RBC 3.84 m/uL (3.80-5.40); RDW 13.8 % (11.5-15.5); WBC 4.4 k/uL (3.8-10.6)
[2019-10-05 09:00] LABS: Potassium 4.3 mmol/L (3.5-5.1)
[2019-10-05 10:58] VITALS: BMI 41.7
[2019-10-05 11:23] LABS: Glucose,Whole Blood 178 mg/dL (75-99)
--- NOTE | 2019-10-05 11:48 | P.PN ---
<Elsy Kan - Last Filed: 10/05/19 13:02> Subjective Progress Note Date: 10/05/19 CHIEF COMPLAINT: Gallstone pancreatitis HISTORY OF PRESENT ILLNESS: Alma Vivar is a 64-year-old female admitted for gallstone pancreatitis with elevated total bilirubin to 3.6 including elevated AST ALT and lipase. Patient is currently tolerating low fat diet. Patient was evaluated by cardiology for cardiac clearance. Stress test showed no evidence for reversible ischemia. Echo shows EF 55-6% mild to moderate mitral regurgitation, moderate to severe tricuspid regurgitation, severe pulmonary hypertension. Patient reports having left upper quadrant abdominal pain after eating and with movement. She did have a bowel movement. She vomited after the stress test. Patient is afebrile. WBC 4.4 hemoglobin 11.5 PHYSICAL EXAM: VITAL SIGNS: Reviewed GENERAL: Well-developed in no acute distress. HEENT: No sclera icterus. Extraocular movements grossly intact. Moist buccal mucosa. Head is atraumatic, normocephalic. Hears conversational speech. No nasal drainage. NECK: Supple without lymphadenopathy. CHEST: Non-labored respirations and equal bilateral excursions. CARDIOVASCULAR: Palpable 2+ radial pulses. ABDOMEN: Soft. Nondistended. Nontender. MUSCULOSKELETAL: No clubbing or cyanosis. NEUROLOGIC: No focal or lateralizing signs. Cranial nerves II through XII grossly intact. PSYCH: Appropriate affect. Alert and oriented to person, place and time. SKIN: Well perfused. Good skin turgor. ASSESSMENT: 1. Gallstone pancreatitis 2. History of super morbid obesity BMI of 49 down to 33.7 2. Fibromyalgia. 3. Chronic pain syndrome. 4. Diabetes type 2 insulin dependent. 5. Cardiomyopathy. 6. History of stroke. 7. Iron-deficiency anemia. 8. Depression. 9. Chronic pain syndrome. 10. Renal insufficiency. 11. Status post sleeve gastrectomy PLAN: -Patient is pending cardiac clearance for robotic cholecystectomy -Last dose of Plavix was on 10/01/19 -Continue low-fat diet. Physician Senior Net C Developer note has been reviewed by physician. Signing provider agrees with the documented findings, assessment, and plan of care. Objective - Vital Signs Vital signs: Vital Signs Temp 98.6 F 10/05/19 05:00 Pulse 57 L 10/05/19 05:00 Resp 20 10/05/19 05:00 BP 169/72 10/05/19 05:00 Pulse Ox 93 L 10/05/19 05:00 Intake & Output 10/04/19 10/05/19 10/05/19 18:59 06:59 18:59 Intake Total 990 Balance 990 Weight 132 kg 132 kg Intake: Intake, IV Titration 100 Amount Piperacillin-Tazobactam 3 100 .375 gm In Sodium Chloride 0.9% 100 ml @ 25 mls/hr IVPB Q8HR [facility] Rx# :[id number] Oral 890 Other: Voiding Method Bedside Commode Bedside Commode Bedside Commode Diaper Diaper Diaper Incontinent Incontinent Incontinent # Voids 1 2 # Bowel Movements 1 - Labs CBC & Chem 7: 10/05/19 07:44 10/05/19 07:44 Labs: Abnormal Lab Results - Last 24 Hours (Table) 10/04/19 10/04/19 10/05/19 Range/Units 17:19 20:16 02:06 MCV (80.0-100.0) fL MCHC (31.0-37.0) g/dL Lymphocytes # (1.0-4.8) k/uL BUN (7-17) mg/dL Creatinine (0.52-1.04) mg/dL Glucose (74-99) mg/dL POC Glucose (mg/dL) 253 H 253 H 135 H (75-99) mg/dL 10/05/19 10/05/19 10/05/19 Range/Units 07:03 07:44 07:44 MCV 100.5 H (80.0-100.0) fL MCHC 29.8 L (31.0-37.0) g/dL Lymphocytes # 0.7 L (1.0-4.8) k/uL BUN 19 H (7-17) mg/dL Creatinine 1.27 H (0.52-1.04) mg/dL Glucose 130 H (74-99) mg/dL POC Glucose (mg/dL) 123 H (75-99) mg/dL 10/05/19 Range/Units 11:21 MCV (80.0-100.0) fL MCHC (31.0-37.0) g/dL Lymphocytes # (1.0-4.8) k/uL BUN (7-17) mg/dL Creatinine (0.52-1.04) mg/dL Glucose (74-99) mg/dL POC Glucose (mg/dL) 178 H (75-99) mg/dL Microbiology - Last 24 Hours (Table) 09/29/19 18:22 Blood Culture - Preliminary Blood No Growth after 120 hours <Abdias,Karen N - Last Filed: 10/05/19 18:22> Subjective Patient seen and evaluated. Additional findings and recommendations below. Patient was tolerated her low-fat diet. She reports a left upper quadrant abdominal pain is mildly improved. No reports of fevers or chills. She has completed cardiac risk assessment including stress test. ABDOMEN: Abdomen without peritonitis with mild tenderness left upper quadrant. MUSCULOSKELETAL: Bilateral chronic venous stasis disease with 2+ lower extremity edema. STUDIES: Chemical stress test results reviewed demonstrating no irreversible i schemic events. Ejection fraction confirmed over 55%. ASSESSMENT: 1. Gallstone pancreatitis PLAN: 1. Cardiology recommendations confirm no immediate contraindications to surgery. We will proceed with robotic cholecystectomy. I personally discussed benefits and risks of surgical intervention for cholecystectomy secondary to gallstone pancreatitis. 2. May resume Plavix 48 hours after surgery should there be no intraoperative complications or bleeding 3. Continue low-fat diet with nothing by mouth after midnight. 4. The patient's baseline comorbidities including previous stroke, renal i nsufficiency, diabetes type 2, morbid obesity, pre-existing heart disease, patient is elevated risk for perioperative complications Objective - Vital Signs Vital signs: Vital Signs Temp 98.4 F 10/05/19 11:57 Pulse 60 10/05/19 11:57 Resp 18 10/05/19 11:57 BP 171/71 10/05/19 11:57 Pulse Ox 94 L 10/05/19 11:57 Intake & Output 10/04/19 10/05/19 10/05/19 18:59 06:59 18:59 Intake Total 990 Output Total 200 Balance 990 -200 Weight 132 kg 132 kg Intake: Intake, IV Titration 100 Amount Piperacillin-Tazobactam 3 100 .375 gm In Sodium Chloride 0.9% 100 ml @ 25 mls/hr IVPB Q8HR [facility] Rx# :[id number] Oral 890 Output: Urine 200 Other: Voiding Method Bedside Commode Bedside Commode Bedside Commode Diaper Diaper Diaper Incontinent Incontinent Incontinent # Voids 1 2 6 # Bowel Movements 1 - Labs CBC & Chem 7: 08/26/20 07:44 10/05/19 07:44 Labs: Abnormal Lab Results - Last 24 Hours (Table) 10/04/19 10/05/19 10/05/19 Range/Units 20:16 02:06 07:03 MCV (80.0-100.0) fL MCHC (31.0-37.0) g/dL Lymphocytes # (1.0-4.8) k/uL BUN (7-17) mg/dL Creatinine (0.52-1.04) mg/dL Glucose (74-99) mg/dL POC Glucose (mg/dL) 253 H 135 H 123 H (75-99) mg/dL 10/05/19 10/05/19 10/05/19 Range/Units 07:44 07:44 11:21 MCV 100.5 H (80.0-100.0) fL MCHC 29.8 L (31.0-37.0) g/dL Lymphocytes # 0.7 L (1.0-4.8) k/uL BUN 19 H (7-17) mg/dL Creatinine 1.27 H (0.52-1.04) mg/dL Glucose 130 H (74-99) mg/dL POC Glucose (mg/dL) 178 H (75-99) mg/dL 10/05/19 Range/Units 17:10 MCV (80.0-100.0) fL MCHC (31.0-37.0) g/dL Lymphocytes # (1.0-4.8) k/uL BUN (7-17) mg/dL Creatinine (0.52-1.04) mg/dL Glucose (74-99) mg/dL POC Glucose (mg/dL) 256 H (75-99) mg/dL Microbiology - Last 24 Hours (Table) 09/29/19 18:22 Blood Culture - Preliminary Blood No Growth after 120 hours Assessment and Plan (1) History of sleeve gastrectomy Current Visit: Yes Status: Acute Code(s): Z90.3 - ACQUIRED ABSENCE OF STOMACH [PART OF] SNOMED Code(s): 944808609645192 (2) Fibromyalgia Current Visit: Yes Status: Acute Code(s): M79.7 - FIBROMYALGIA SNOMED Code(s): 018816322 (3) Choledocholithiasis Current Visit: Yes Status: Acute Code(s): K80.50 - CALCULUS OF BILE DUCT W/O CHOLANGITIS OR CHOLECYST W/O OBST SNOMED Code(s): 408227734 (4) Chest pain Current Visit: Yes Status: Acute Code(s): R07.9 - CHEST PAIN, UNSPECIFIED SNOMED Code(s): 54274677 (5) Gallstone pancreatitis Current Visit: Yes Status: Acute Code(s): K85.10 - BILIARY ACUTE PANCREATITIS WITHOUT NECROSIS OR INFECTION SNOMED Code(s): 33733344 (6) Morbid obesity Current Visit: Yes Status: Acute Code(s): E66.01 - MORBID (SEVERE) OBESITY DUE TO EXCESS CALORIES SNOMED Code(s): 018288655 (7) Renal insufficiency Current Visit: No Status: Acute Code(s): N28.9 - DISORDER OF KIDNEY AND URETER, UNSPECIFIED SNOMED Code(s): 836434895
--- NOTE | 2019-10-05 12:38 | P.PN ---
Subjective Progress Note Date: 10/05/19 Principal diagnosis: This is a pleasant 64 years old female with past medical history of morbid obesity, obstructive sleep apnea, previous strokes with left-sided hemiparesis, diabetes mellitus, chronic lower extremity edema, hypertension, rheumatoid arthritis, gastroesophageal reflux disease, chronic kidney disease, previous stage II coccygeal ulcer, depression, previous gastric sleeve bypass in 2014. She is a patient of the [facility], also she sees Dr. Martinez for stroke and Dr. Samano for her diabetes. Patient presents because of upper abdominal pain, more on the left side than the right side but patient has previous gastric sleeve surgery, then is below her left breast at the maximum point, nonradiating, felt like pressure was 7/10 in severity, started about one hour and a half before, to emergency room associated with nausea but no vomiting. Patient has regular bow el movement yesterday morning when she took Pepto-Bismol. She felt feverish with chills. She has no chest pain or dyspnea. No coughing. She denies smoking or alcohol use. She denies suicidal or signs symptoms of depression, no hallucination. on admission she has a fever 101.6. Personal vitals are stable. Labs showed leukocytosis of 10.7 K, INR is normal, creatinine is slightly elevated at 1.1, rest of BMP is unremarkable. Liver enzymes are elevated with AST 889, ALT 325, serial troponins are negative with less than 0.012. Lipase is elevated at 2815. Bilirubin is elevated 2.1 Gallbladder ultrasound, multiple gallstones but no dilated intrahepatic bile duct. Gallbladder is markedly dilated and measures 5 cm in centimeter suggestive of gallbladder dysfunction or cholecystitis EKG showing normal sinus rhythm at [address]-T changes, possible LVH with QTC 441, Chest CTA: No evidence of pulmonary embolism. Hiatal hernia, atelectasis An emergency room patient was started on Unasyn and aspirin 324 mg. 1 L of normal saline and a one-time dose of IV labetalol GI and surgery team or consulted from ER A 2220 Patient has no abdominal pain although upper abdomen is still slightly tender, no nausea vomiting, she did not have bowel movement or passing gases. She is hemodynamically stable. The loops he is back to normal. Creatinine is trending up 2.1, we'll check bladder scan and renal ultrasound and nephrology consult. MRCP showed acute on chronic cholecystitis with no dilated common bile duct and no signs of obstruction. Her fever and leukocytosis has improved, patient may not have infection. We'll check pro-calcitonin and if his elevated on we will continue with antibiotic. Then This unlikely patient has cholangitis, and its due to pancreatitis Currently she is on normal saline and Zosyn. Liver enzymes are trending down Patient is on normal saline 75 mL/h 10/02/2019 Patient is awake and alert, she does not have very good appetite however she is eating her liquid diet which advanced today to soft/regular diet as tolerated, she has no abdominal pain but she did not last bowel movement except gases. Her sugar was low this morning and she confirmed to me she was taken Lantus 32 units at bedtime and 14 units with meals, we will lowered her Levemir from 32 down to 20 units and advance diet and thus will help with her sugar, F sugar remains low we will change her normal saline to D5 normal saline and I discussed with the staff. She still needs IV antibiotics and she is currently on Zosyn. CBC and BMP are stable, creatinine is coming down, her renal ultrasound is unremarkable. Her liver enzymes are trending down No indication for ERCP today. We will follow up with surgery team for possible need for cholecystectomy 10/03/2019 Patient is still symptomatic today she has nausea with her Diet, she still have some abdominal pain in the left upper abdomen. She still constipated did not have bowel movement since hospitalized however she is passing GASES. surgery team planned for cholecystectomy on . We will ask for cardiology clearance who recommended echocardiogram and is pending Plavix is on hold, she continues on aspirin. CBC is improving with normal WBC. Her labs improving with trending down bilirubin and liver enzymes. Creatinine is trending down with IV fluid 2.3 down to 1.8, patient has no fever for 48 hours, she remains on Zosyn currently 10/04/2019 Patient is seen and evaluated and follow-up continues to have some abdominal discomfort and being evaluated by surgery along with cardiology for surgical c learance. Patient underwent an echo showing overall left ventricular systolic function is normal with an EF between 55 and 60%, increased lap grade 2 diastolic dysfunction with mild to moderate mitral regurgitation and moderate to severe tricuspid regurgitation present. Patient is to undergo a stress test for further evaluation. If cardiology clears patient will undergo cholecystectomy this with Dr. Calero. Patient is currently maintained on a low fat consistent carb dysphagia 3 Diet and will continue at this time. Patient normally takes aspirin and Plavix although are currently on hold for upcoming surgery this . Will repeat a.m. labs. Review of systems: Constitutional: No reports of fatigue, fever, or chills Cardiovascular: No reports of chest pain or palpitations Respiratory: No reports of shortness of breath or cough GI: Reports intermittent nausea, no reports of vomiting, or diarrhea, reports abdominal discomfort : No reports of dysuria or retention Neurovascular: No reports of weakness or numbness All medications have been reviewed 10/05/2019 Patient is seen and evaluated and follow-up awaiting to undergo cholecystectomy. Patient was on Plavix which is currently being held. Patient was seen and evaluated by cardiology and underwent a stress test showing no scintigraphic evidence for reversible ischemia. Patient continues to have some left upper quadrant abdominal discomfort on palpation. Patient has intermittent nausea but is tolerating diet. No acute overnight issues. She currently denies any chest pain, shortness of breath, or palpitations. Patient is afebrile. We'll continue to monitor closely anticipation of possible surgery in the morning. Objective - Vital Signs Vital signs: Vital Signs Temp 98.6 F 10/05/19 05:00 Pulse 57 L 10/05/19 05:00 Resp 20 10/05/19 05:00 BP 169/72 10/05/19 05:00 Pulse Ox 93 L 10/05/19 05:00 Intake & Output 10/04/19 10/05/19 10/05/19 18:59 06:59 18:59 Intake Total 990 Balance 990 Weight 132 kg 132 kg Intake: Intake, IV Titration 100 Amount Piperacillin-Tazobactam 3 100 .375 gm In Sodium Chloride 0.9% 100 ml @ 25 mls/hr IVPB Q8HR [facility] Rx# :[id number] Oral 890 Other: Voiding Method Bedside Commode Bedside Commode Bedside Commode Diaper Diaper Diaper Incontinent Incontinent Incontinent # Voids 1 2 # Bowel Movements 1 - Exam GENERAL: The patient is alert and oriented x3, not in any acute distress. Well developed, well nourished. HEENT: Pupils are round and equally reacting to light. EOMI. No scleral icterus. No conjunctival pallor. Normocephalic, atraumatic. No pharyngeal erythema. No thyromegaly. CARDIOVASCULAR: S1 and S2 present. No murmurs, rubs, or gallops. PULMONARY: Diminished breath sounds bilaterally with no wheezing or crackles. ABDOMEN: Soft, mildly tender upon palpation of the upper left quadrant, nondistended, normoactive bowel sounds. No palpable organomegaly. MUSCULOSKELETAL: No joint swelling or deformity. EXTREMITIES: No cyanosis, clubbing, or pedal edema. NEUROLOGICAL: Gross neurological examination did not reveal any focal deficits. SKIN: No rashes. no petechiae. - Labs CBC & Chem 7: 10/05/19 07:44 10/05/19 07:44 Labs: Abnormal Lab Results - Last 24 Hours (Table) 10/04/19 10/04/19 10/04/19 Range/Units 11:20 17:19 20:16 MCV (80.0-100.0) fL MCHC (31.0-37.0) g/dL Lymphocytes # (1.0-4.8) k/uL BUN (7-17) mg/dL Creatinine (0.52-1.04) mg/dL Glucose (74-99) mg/dL POC Glucose (mg/dL) 149 H 253 H 253 H (75-99) mg/dL 10/05/19 10/05/19 10/05/19 Range/Units 02:06 07:03 07:44 MCV (80.0-100.0) fL MCHC (31.0-37.0) g/dL Lymphocytes # (1.0-4.8) k/uL BUN 19 H (7-17) mg/dL Creatinine 1.27 H (0.52-1.04) mg/dL Glucose 130 H (74-99) mg/dL POC Glucose (mg/dL) 135 H 123 H (75-99) mg/dL 10/05/19 Range/Units 07:44 MCV 100.5 H (80.0-100.0) fL MCHC 29.8 L (31.0-37.0) g/dL Lymphocytes # 0.7 L (1.0-4.8) k/uL BUN (7-17) mg/dL Creatinine (0.52-1.04) mg/dL Glucose (74-99) mg/dL POC Glucose (mg/dL) (75-99) mg/dL Microbiology - Last 24 Hours (Table) 09/29/19 18:22 Blood Culture - Preliminary Blood No Growth after 120 hours Assessment and Plan Assessment: Acute gallstone pancreatitis Elevated liver enzymes secondary to gallstone pancreatitis Acute kidney injury, present on admission, improving Sepsis with positive SIRS with fever and leukocytosis, Mostly secondary to acute cholangitis Dilated gallbladder suspicious for gallbladder dysfunction or cholecystitis, However MRCP no dilated common bile duct Hiatal hernia Morbid obesity Obstructive sleep apnea previous stroke with left hemiparesis Diabetes mellitus Chronic lower extremity edema Hypertension Rheumatoid arthritis GERD Chronic kidney disease Previous stage II coccygeal Depression previous gastric sleeve surgery GI prophylaxis: Protonix DVT prophylaxis: Subcu heparin Plan: Continue current medications, management, and symptomatic treatment. Patient is currently maintained on IV antibiotics in the form of Zosyn and will continue. Surgery and cardiology along with GI following. Patient underwent stress test for cardiac clearance for surgery on . To continue holding aspirin and Plavix with anticipation of cholecystectomy in the morning. Will repeat a.m. labs. Further recommendations to follow based on the clinical course of the patient.
--- NOTE | 2019-10-05 15:04 | PN ---
PROGRESS NOTE Mrs. Vivar is a 64-year-old female with known history of hypertension, history of hyperlipidemia, history of stroke, who came in with abdominal discomfort, was found to have cholelithiasis, scheduled to undergo surgical intervention tomorrow. She denies any chest pain. Her breathing is stable. She denies any dizziness, palpitation. She denies any nausea. She continues to have some abdominal discomfort. She underwent an echocardiogram that revealed a preserved left ventricular size and systolic function with moderate to severe tricuspid regurgitation. She underwent a myocardial perfusion imaging that revealed no evidence of inducible ischemia. She continues to be at this time on aspirin, amlodipine 10 mg daily, Lipitor 40 mg daily, Coreg 12.5 mg twice a day, insulin, lisinopril 2.5 mg daily. PHYSICAL EXAMINATION: Blood pressure 130 to 160 with a heart rate in the 50s. LUNGS: Clear. HEART: Regular rate and rhythm, S1, S2. No S3 with a systolic murmur, no diastolic murmur. ABDOMEN: Soft, obese, mild tenderness. EXTREMITIES: With mild edema. LAB DATA: Revealed BUN and creatinine 19 and 1.27, has improved. Potassium 4.3. IMPRESSION: 1. Cholelithiasis, scheduled for surgical intervention. 2. Hypertension. 3. History of stroke. 4. Hyperlipidemia. 5. Diabetes mellitus. RECOMMENDATION: From the cardiac standpoint, she is stable to proceed with her surgical intervention. I will increase the dose of her lisinopril to optimize her blood pressure control. I see no contraindication from the cardiac standpoint. Will see her on as-needed basis. Please feel free to call us for any question. MMODL / IJN: [id number] /
[2019-10-05 17:12] LABS: Glucose,Whole Blood 256 mg/dL (75-99)
[2019-10-05 20:56] LABS: Glucose,Whole Blood 165 mg/dL (75-99)
[2019-10-05] MEDS: INSULIN DETEMIR (LEVEMIR) 100 UNIT/ML SYR SQ SCH (21:17)
[2019-10-06] MEDS: PIPERACILLIN-TAZOBACTAM 3.375 GM in SODIUM CHLORIDE 0.9% 100 ML IVPB SCH ×3 (00:32→17:20)
[2019-10-06] MEDS: MORPHINE SULFATE 4 MG/ML SYRINGE IVP PRN ×2 (02:12→19:43)
[2019-10-06] MEDS ORDERED: HYDROmorphone 0.5 MG/0.5 ML SYRINGE IVP PRN (05:53)
[2019-10-06] MEDS ORDERED: DEXAMETHASONE SOD PHOSPHATE 10 MG/ML 1 ML VIAL IV ONE (05:53)
[2019-10-06] MEDS ORDERED: ONDANSETRON 4 MG/2 ML VIAL IVP ONE ×3 (05:53→09:12)
[2019-10-06] MEDS: LACTATED RINGERS 1,000 ML IV SCH ×3 (06:19→15:52)
[2019-10-06 07:14] LABS: Glucose,Whole Blood 155 mg/dL (75-99)
[2019-10-06 07:28] LABS: Basophils % (A) 1 %; Eosinophils # (A) 0.3 k/uL (0-0.7); Eosinophils % (A) 5 %; HCT 38.3 % (34.0-46.0); HGB 11.5 gm/dL (11.4-16.0); Hypochromasia Moderate; Lymphocytes # (A) 0.9 k/uL (1.0-4.8); Lymphocytes % (A) 15 %; MCH 29.8 pg (25.0-35.0); MCHC 29.9 g/dL (31.0-37.0); MCV 99.8 fL (80.0-100.0); Monocytes # (A) 0.4 k/uL (0-1.0); Monocytes % (A) 7 %; Neutrophils % (A) 71 %; Platelet Count 191 k/uL (150-450); RBC 3.84 m/uL (3.80-5.40); RDW 13.8 % (11.5-15.5); WBC 5.6 k/uL (3.8-10.6)
[2019-10-06 07:43] LABS: Albumin 3.2 g/dL (3.5-5.0); Calcium 8.9 mg/dL (8.4-10.2); Potassium 4.1 mmol/L (3.5-5.1); Total Bilirubin 1.7 mg/dL (0.2-1.3); Total Protein 6.3 g/dL (6.3-8.2)
[2019-10-06] MEDS: ASPIRIN 81 MG PO SCH (08:26)
[2019-10-06] MEDS ORDERED: INDOCYANINE GREEN 25 MG VIAL IV STA (08:55)
[2019-10-06] MEDS ORDERED: GABAPENTIN 300 MG CAP PO STA (08:55)
[2019-10-06] MEDS ORDERED: ceFAZolin 3 GM in SODIUM CHLORIDE 0.9% 100 ML IVPB ONE (08:55)
[2019-10-06] MEDS ORDERED: ACETAMINOPHEN TAB 500 MG TAB PO STA (08:55)
[2019-10-06] MEDS: carvediloL 12.5 MG TAB PO SCH ×2 (08:58→20:55)
[2019-10-06] MEDS: INSULIN ASPART (NovoLOG) 100 UNIT/ML VIAL SQ SCH ×4 (09:00→20:56)
[2019-10-06] MEDS: FERROUS SULFATE 325 MG TAB PO SCH (09:03)
[2019-10-06] MEDS: ATORVASTATIN 40 MG TAB PO SCH (09:03)
[2019-10-06] MEDS: DULoxetine HCL 60 MG CAPSULE.DR PO SCH ×2 (09:03→20:55)
[2019-10-06] MEDS: HEPARIN SODIUM,PORCINE 5,000 UNIT/ML 1 ML VIAL SQ SCH ×2 (09:03→20:55)
[2019-10-06] MEDS: amLODIPine 10 MG TAB PO SCH (09:04)
[2019-10-06] MEDS: TOPIRAMATE 25 MG TAB PO SCH ×2 (09:04→20:55)
[2019-10-06] MEDS: PREGABALIN 75 MG CAP PO SCH ×2 (09:04→20:55)
[2019-10-06] MEDS: PANTOPRAZOLE 40 MG TABLET PO SCH (09:04)
[2019-10-06] MEDS: ONDANSETRON 4 MG/2 ML VIAL IVP PRN (09:12)
[2019-10-06] MEDS: oxyCODONE-APAP 10-325MG 1 EACH TAB PO PRN ×2 (09:12→20:54)
[2019-10-06 11:28] LABS: Glucose,Whole Blood 209 mg/dL (75-99)
[2019-10-06] MEDS ORDERED: ONDANSETRON 4 MG/2 ML VIAL ONE (14:06)
[2019-10-06] MEDS ORDERED: ACETAMINOPHEN TAB 500 MG TAB ONE (14:06)
[2019-10-06] MEDS ORDERED: HEPARIN SODIUM,PORCINE 5,000 UNIT/ML 1 ML VIAL ONE (14:06)
[2019-10-06 14:30] LABS: Glucose,Whole Blood 182 mg/dL (75-99)
[2019-10-06] MEDS ORDERED: MIDAZOLAM 2 MG/2 ML VIAL IVP ONE ×2 (14:35)
[2019-10-06] MEDS ORDERED: HEPARIN SODIUM,PORCINE 5,000 UNIT/ML 1 ML VIAL SQ ONE (15:46)
[2019-10-06] MEDS ORDERED: GLYCOPYRROLATE 0.2 MG/ML 2 ML VIAL ONE (15:48)
[2019-10-06] MEDS ORDERED: SUCCINYLCHOLINE CHLORIDE 100 MG/5 ML SYR IV ONE (15:48)
[2019-10-06] MEDS ORDERED: LIDOCAINE 1% INJ 10MG/ML (20 ML MDV) ONE (15:48)
[2019-10-06] MEDS ORDERED: MIDAZOLAM 2 MG/2 ML VIAL ONE (15:48)
[2019-10-06] MEDS ORDERED: PROPOFOL 10 MG/ML 20 ML VIAL IV ONE (15:48)
[2019-10-06] MEDS ORDERED: NEOSTIGMINE 1 MG/ML 10 ML VIAL ONE (15:48)
[2019-10-06] MEDS ORDERED: hydrALAZINE HCL 20 MG/ML 1 ML VIAL ONE (15:48)
[2019-10-06] MEDS ORDERED: fentaNYL (PF) 50 MCG/ML 2 ML AMP ONE (15:48)
[2019-10-06] MEDS ORDERED: INDOCYANINE GREEN 25 MG VIAL IV ONE (15:48)
[2019-10-06] MEDS ORDERED: ROCURONIUM BROMIDE 10 MG/ML 5 ML VIAL IV ONE (15:48)
[2019-10-06] MEDS ORDERED: SODIUM CHLORIDE 0.9% 50 ML with ceFAZolin 3,000 MG IV ONE ×2 (15:52)
--- NOTE | 2019-10-06 16:14 | P.PN ---
Subjective Progress Note Date: 10/06/19 Principal diagnosis: This is a pleasant 64 years old female with past medical history of morbid obesity, obstructive sleep apnea, previous strokes with left-sided hemiparesis, diabetes mellitus, chronic lower extremity edema, hypertension, rheumatoid arthritis, gastroesophageal reflux disease, chronic kidney disease, previous stage II coccygeal ulcer, depression, previous gastric sleeve bypass in 2014. She is a patient of the [facility], also she sees Dr. Martinez for stroke and Dr. Samano for her diabetes. Patient presents because of upper abdominal pain, more on the left side than the right side but patient has previous gastric sleeve surgery, then is below her left breast at the maximum point, nonradiating, felt like pressure was 7/10 in severity, started about one hour and a half before, to emergency room associated with nausea but no vomiting. Patient has regular bow el movement yesterday morning when she took Pepto-Bismol. She felt feverish with chills. She has no chest pain or dyspnea. No coughing. She denies smoking or alcohol use. She denies suicidal or signs symptoms of depression, no hallucination. on admission she has a fever 101.6. Personal vitals are stable. Labs showed leukocytosis of 10.7 K, INR is normal, creatinine is slightly elevated at 1.1, rest of BMP is unremarkable. Liver enzymes are elevated with AST 889, ALT 325, serial troponins are negative with less than 0.012. Lipase is elevated at 2815. Bilirubin is elevated 2.1 Gallbladder ultrasound, multiple gallstones but no dilated intrahepatic bile duct. Gallbladder is markedly dilated and measures 5 cm in centimeter suggestive of gallbladder dysfunction or cholecystitis EKG showing normal sinus rhythm at [address]-T changes, possible LVH with QTC 441, Chest CTA: No evidence of pulmonary embolism. Hiatal hernia, atelectasis An emergency room patient was started on Unasyn and aspirin 324 mg. 1 L of normal saline and a one-time dose of IV labetalol GI and surgery team or consulted from ER A 2220 Patient has no abdominal pain although upper abdomen is still slightly tender, no nausea vomiting, she did not have bowel movement or passing gases. She is hemodynamically stable. The loops he is back to normal. Creatinine is trending up 2.1, we'll check bladder scan and renal ultrasound and nephrology consult. MRCP showed acute on chronic cholecystitis with no dilated common bile duct and no signs of obstruction. Her fever and leukocytosis has improved, patient may not have infection. We'll check pro-calcitonin and if his elevated on we will continue with antibiotic. Then This unlikely patient has cholangitis, and its due to pancreatitis Currently she is on normal saline and Zosyn. Liver enzymes are trending down Patient is on normal saline 75 mL/h 10/02/2019 Patient is awake and alert, she does not have very good appetite however she is eating her liquid diet which advanced today to soft/regular diet as tolerated, she has no abdominal pain but she did not last bowel movement except gases. Her sugar was low this morning and she confirmed to me she was taken Lantus 32 units at bedtime and 14 units with meals, we will lowered her Levemir from 32 down to 20 units and advance diet and thus will help with her sugar, F sugar remains low we will change her normal saline to D5 normal saline and I discussed with the staff. She still needs IV antibiotics and she is currently on Zosyn. CBC and BMP are stable, creatinine is coming down, her renal ultrasound is unremarkable. Her liver enzymes are trending down No indication for ERCP today. We will follow up with surgery team for possible need for cholecystectomy 10/03/2019 Patient is still symptomatic today she has nausea with her Diet, she still have some abdominal pain in the left upper abdomen. She still constipated did not have bowel movement since hospitalized however she is passing GASES. surgery team planned for cholecystectomy on . We will ask for cardiology clearance who recommended echocardiogram and is pending Plavix is on hold, she continues on aspirin. CBC is improving with normal WBC. Her labs improving with trending down bilirubin and liver enzymes. Creatinine is trending down with IV fluid 2.3 down to 1.8, patient has no fever for 48 hours, she remains on Zosyn currently 10/04/2019 Patient is seen and evaluated and follow-up continues to have some abdominal discomfort and being evaluated by surgery along with cardiology for surgical c learance. Patient underwent an echo showing overall left ventricular systolic function is normal with an EF between 55 and 60%, increased lap grade 2 diastolic dysfunction with mild to moderate mitral regurgitation and moderate to severe tricuspid regurgitation present. Patient is to undergo a stress test for further evaluation. If cardiology clears patient will undergo cholecystectomy this with Dr. Calero. Patient is currently maintained on a low fat consistent carb dysphagia 3 Diet and will continue at this time. Patient normally takes aspirin and Plavix although are currently on hold for upcoming surgery this . Will repeat a.m. labs. Review of systems: Constitutional: No reports of fatigue, fever, or chills Cardiovascular: No reports of chest pain or palpitations Respiratory: No reports of shortness of breath or cough GI: Reports intermittent nausea, no reports of vomiting, or diarrhea, reports abdominal discomfort : No reports of dysuria or retention Neurovascular: No reports of weakness or numbness All medications have been reviewed 10/05/2019 Patient is seen and evaluated and follow-up awaiting to undergo cholecystectomy. Patient was on Plavix which is currently being held. Patient was seen and evaluated by cardiology and underwent a stress test showing no scintigraphic evidence for reversible ischemia. Patient continues to have some left upper quadrant abdominal discomfort on palpation. Patient has intermittent nausea but is tolerating diet. No acute overnight issues. She currently denies any chest pain, shortness of breath, or palpitations. Patient is afebrile. We'll continue to monitor closely anticipation of possible surgery in the morning. 10/06/2019 Patient is seen in follow-up scheduled to undergo cholecystectomy today. Plavix currently remains on hold and will discuss with surgery tomorrow about resuming. Patient has been nothing by mouth since midnight and continues to have some abdominal discomfort but states is manageable. Patient is maintained on IV antibiotics in the form of Zosyn and will continue at this time. Review of systems: Constitutional: No reports of fatigue, fever, or chills Cardiovascular: No reports of chest pain or palpitations Respiratory: No reports of shortness of breath or cough GI: No reports of nausea, vomiting, or diarrhea, reports abdominal discomfort in the left upper quadrant : No reports of dysuria or retention Neurovascular: No reports of weakness or numbness All medications have been reviewed Objective - Vital Signs Vital signs: Vital Signs Temp 98.2 F 10/06/19 11:21 Pulse 52 L 10/06/19 11:21 Resp 16 10/06/19 11:21 BP 139/61 10/06/19 11:21 Pulse Ox 94 L 10/06/19 11:21 Intake & Output 10/05/19 10/06/19 10/06/19 18:59 06:59 18:59 Intake Total 940 Output Total 200 Balance -200 940 Weight 132 kg Intake: Intake, IV Titration 100 Amount Piperacillin-Tazobactam 3 100 .375 gm In Sodium Chloride 0.9% 100 ml @ 25 mls/hr IVPB Q8HR [facility] Rx# :[id number] Oral 840 Output: Urine 200 Other: Voiding Method Bedside Commode Bedside Commode Diaper Diaper Incontinent Incontinent # Voids 6 1 - Exam GENERAL: The patient is alert and oriented x3, not in any acute distress. Well developed, well nourished. HEENT: Pupils are round and equally reacting to light. EOMI. No scleral icterus. No conjunctival pallor. Normocephalic, atraumatic. No pharyngeal erythema. No thyromegaly. CARDIOVASCULAR: S1 and S2 present. No murmurs, rubs, or gallops. PULMONARY: Diminished breath sounds bilaterally with no wheezing or crackles. ABDOMEN: Soft, mildly tender upon palpation of the upper left quadrant, nondistended, normoactive bowel sounds. No palpable organomegaly. MUSCULOSKELETAL: No joint swelling or deformity. EXTREMITIES: No cyanosis, clubbing, or pedal edema. NEUROLOGICAL: Gross neurological examination did not reveal any focal deficits. SKIN: No rashes. no petechiae. - Labs CBC & Chem 7: 10/06/19 06:54 10/06/19 06:54 Labs: Abnormal Lab Results - Last 24 Hours (Table) 10/05/19 10/05/19 10/06/19 Range/Units 17:10 20:55 06:54 MCHC 29.9 L (31.0-37.0) g/dL Lymphocytes # 0.9 L (1.0-4.8) k/uL BUN (7-17) mg/dL Creatinine (0.52-1.04) mg/dL Glucose (74-99) mg/dL POC Glucose (mg/dL) 256 H 165 H (75-99) mg/dL Total Bilirubin (0.2-1.3) mg/dL AST (14-36) U/L ALT (4-34) U/L Alkaline Phosphatase (38-126) U/L Albumin (3.5-5.0) g/dL 10/06/19 10/06/19 10/06/19 Range/Units 06:54 07:13 11:27 MCHC (31.0-37.0) g/dL Lymphocytes # (1.0-4.8) k/uL BUN 20 H (7-17) mg/dL Creatinine 1.27 H (0.52-1.04) mg/dL Glucose 156 H (74-99) mg/dL POC Glucose (mg/dL) 155 H 209 H (75-99) mg/dL Total Bilirubin 1.7 H (0.2-1.3) mg/dL AST 89 H (14-36) U/L ALT 82 H (4-34) U/L Alkaline Phosphatase 469 H (38-126) U/L Albumin 3.2 L (3.5-5.0) g/dL Microbiology - Last 24 Hours (Table) 09/29/19 18:22 Blood Culture - Final Blood No Growth after 144 hours Assessment and Plan Assessment: Acute gallstone pancreatitis Elevated liver enzymes secondary to gallstone pancreatitis Acute kidney injury, present on admission, improving Sepsis with positive SIRS with fever and leukocytosis, Mostly secondary to acute cholangitis Dilated gallbladder suspicious for gallbladder dysfunction or cholecystitis, However MRCP no dilated common bile duct Hiatal hernia Morbid obesity Obstructive sleep apnea previous stroke with left hemiparesis Diabetes mellitus Chronic lower extremity edema Hypertension Rheumatoid arthritis GERD Chronic kidney disease Previous stage II coccygeal Depression previous gastric sleeve surgery GI prophylaxis: Protonix DVT prophylaxis: Subcu heparin Plan: Continue current medications, management, and symptomatic treatment. Patient is currently maintained on IV antibiotics in the form of Zosyn and will continue. Surgery and cardiology along with GI following. Patient scheduled to undergo cholecystectomy with Dr. Leach this afternoon. Will await report. Will repeat a.m. labs. Further recommendations to follow based on the clinical course of the patient.
[2019-10-06] MEDS ORDERED: BUPIVACAINE (PF) 0.25% 30 ML VIAL SQ ONE (16:16)
[2019-10-06] MEDS ORDERED: LACTATED RINGERS 1,000 ML IV ONE ×2 (16:18→18:57)
[2019-10-06 18:27] LABS: Glucose,Whole Blood 247 mg/dL (75-99)
[2019-10-06] MEDS ORDERED: HYDROmorphone 1 MG/ML 1 ML SYRINGE IVP ONE ×2 (18:37→18:51)
[2019-10-06] MEDS ORDERED: INSULIN ASPART (NovoLOG) 100 UNIT/ML VIAL SQ ONE (18:46)
[2019-10-06] MEDS ORDERED: LABETALOL 5 MG/ML VIAL MDV IVP ONE (18:49)
[2019-10-06 20:06] LABS: Glucose,Whole Blood 244 mg/dL (75-99)
[2019-10-06] MEDS: INSULIN DETEMIR (LEVEMIR) 100 UNIT/ML SYR SQ SCH (20:55)
[2019-10-06] MEDS ORDERED: ACETAMINOPHEN IV (For NPO) 1,000 MG in EMPTY BAG 1 BAG IVPB ONE (22:02)
[2019-10-06] MEDS ORDERED: NALOXONE 0.4 MG/ML 1 ML VIAL IV PRN (22:02)
[2019-10-06] MEDS: HYDROmorphone 1 MG/ML 1 ML SYRINGE IVP PRN (22:21)
--- NOTE | 2019-10-06 22:26 | P.OP ---
Date of Procedure: 10/06/19 Description of Procedure: SURGEON: CARTER RIOJAS MD PREOPERATIVE DIAGNOSES: 1. Gallstone pancreatitis 2. Elevated liver enzymes 3. Morbid obesity due to excess calories BMI of 41.8 4. Diabetes type 2 insulin dependent. 5. Cardiomyopathy, diastolic dysfunction 6. History of stroke. 7. Iron-deficiency anemia. 8. Depression. 9. Chronic pain syndrome. 10. Renal insufficiency, stage III due to diabetes 11. Status post sleeve gastrectomy 12. Pulmonary hypertension 13. Chronic antiplatelet therapy POSTOPERATIVE DIAGNOSES: 1. Gallstone pancreatitis with acute pancreatitis 2. Elevated liver enzymes 3. Morbid obesity due to excess calories BMI of 41.8 4. Diabetes type 2 insulin dependent. 5. Cardiomyopathy, diastolic dysfunction 6. History of stroke. 7. Iron-deficiency anemia. 8. Depression. 9. Chronic pain syndrome. 10. Renal insufficiency, stage III due to diabetes 11. Status post sleeve gastrectomy 12. Pulmonary hypertension 13. Peritoneal adhesions 14. Mirizzi Syndrome 15. Chronic antiplatelet therapy 16. Hepatomegaly OPERATION: 1. Robotic-assisted da Oscar Xi laparoscopic lysis of adhesions 2. Robotic-assisted da Oscar Xi laparoscopic cholecystectomy, multiport with FIREFLY ESTIMATED BLOOD LOSS: 100 mL. SPECIMENS REMOVED: Gallbladder. COMPLICATIONS: None. OPERATIVE FINDINGS: 1. Acute cholecystitis with hydrops and distended gallbladder 2. Indocyanine green confirms acute cholecystitis with lack of contrast in gallbladder 3. Functional compression of common bile duct from gallbladder infunidibulum, otherwise Mirizzi syndrome 4. Dense posterior adhesions of gallbladder infundibulum to common bile duct. INDICATIONS: The patient is a 64 year-old female who presents with gallstone pancreatitis. Surgical intervention with cholecystectomy was described. Robotic assisted laparoscopic approach was described. Benefits and risks of the procedure including but not limited to bleeding, infection, injury to the biliary tree was reviewed. Informed consent was obtained. DESCRIPTION OF PROCEDURE: Patient was brought to the operating room, placed in supine position. After general induction, the abdomen had been prepped and draped in standard sterile fashion. The robotic da Oscar XI system was primed. After a timeout protocol was performed, the patient had been prepped and draped in standard sterile fashion. The patient was injected with indocyanine green. A 5 mm 0 degrees laparoscopic trocar entry was performed along the left upper quadrant. The abdomen insufflated to 15 mmHg pressure which was tolerated well. Diagnostic laparoscopy demonstrated no injury to bowel viscera or mesentery. The liver surface was remarkable for hepatomegaly. A moderately distended gallbladder was identified adding complexity to the case including dense pertioneal adhesions to the body, fundus, and infundibulum of the gallbladder. Next, two 8 mm robotic ports were placed along the right upper abdomen. The camera 8-mm port was maintained along the epigastrium. Another 8 mm port was placed along the left upper abdominal wall after exchanging the 5 mm port. Please note that the ports were placed at least 10 to 15 cm away from the target anatomy of the gallbladder. The robot was docked along the left lateral abdomen. The patient was repositioned in reverse Trendelenburg position with the right side up. Using a grasper for arm 3, a grasper for arm 4, including hook cautery for arm 1, the robotic system was docked and primed as described. Instruments were interchanged by the assistant secretary including hook cautery, Bovie cautery and clip appliers. I had sat at the console. Dense adhesions were addressed with hook cautery including vessel sealer along the gallbladder. The gallbladder was reflected towards the dome of the liver. The gallbladder was moderately distended adding complexity to the case. Moderate edema was found along the cystic triangle including infundibulum. Initial dissection was performed on the gallbladder infundibulum using indocyanine green to illuminate the cystic duct and common bile duct. Due to moderate distention of the infundibulum, dome down technique was performed removing the gallbladder from the hepatic fossa starting from the fundus towards the infundibulum. Using a sponge, the liver was reflected towards the diaphragm and starting at the gallbladder fundus, hook cautery was used to find the avascular plane between the liver and the gallbladder. As the gallbladder was dissected from the hepatic fossa, hemostasis was checked using vessel sealer. Next, indocyanine green was used to confirm the common bile duct as well as cystic duct. The entire gallbladder was without contrast consistent with acute cholecystitis. The infundibulum was retracted laterally to expose the cystic duct away from the common bile duct. A functional compression of the gallbladder infundibulum along the common bile duct created a Mirizzi syndrome. As dense posterior adhesions were found to the common bile dile, the gallbladder was prepared for resection at the junction of the infundibulum and cystic duct. FIREFLY was used to identify the cystic structures. A 12-mm trocar was exchanged along the left upper quadrant for a 45-mm blue robotic staple load. The gallbladder was resected along the infundibulum. The gallbladder was removed without decompression within the abdomen. Hemostasis was checked and found to be adequate. The robot was undocked. I re-scrubbed into the case. A 10 mm Endo Catch bag was used to remove the gallbladder in total via the left upper quadrant incision after widening the incision. The specimen was removed from the abdominal cavity. Scott Jovel and 0 Vicryl was used to close the fascial defect of the left upper quadrant. All pneumoperitoneum instruments were evacuated from the abdominal cavity. The incisions were cleansed using dilute hydrogen peroxide. The incisions were reapproximated using 4-0 Monocryl in an interrupted subcuticular fashion. Please note along the trocar sites, local anesthetic was placed as a field block prior to insertion of all instruments. Liquid glue was applied to the skin. At the end of the procedure needle, sponge, and instrument count had been verified correct by the surgical scrub technologist. The patient was transferred to postanesthesia care unit in stable condition. Intraoperative films were shared with the patient's family who were pleased with the level of care. Console time: 71 minutes
[2019-10-07] MEDS: PIPERACILLIN-TAZOBACTAM 3.375 GM in SODIUM CHLORIDE 0.9% 100 ML IVPB SCH ×2 (00:25→08:58)
[2019-10-07 07:10] LABS: Basophils % (A) 0 %; Eosinophils # (A) 0.1 k/uL (0-0.7); Eosinophils % (A) 1 %; HCT 39.1 % (34.0-46.0); HGB 11.8 gm/dL (11.4-16.0); Hypochromasia Marked; Lymphocytes # (A) 0.7 k/uL (1.0-4.8); Lymphocytes % (A) 5 %; MCH 30.6 pg (25.0-35.0); MCHC 30.3 g/dL (31.0-37.0); Macrocytosis Slight; Mean Platelet Volume 8.2; Monocytes # (A) 0.5 k/uL (0-1.0); Monocytes % (A) 4 %; Neutrophils # (A) 12.2 k/uL (1.3-7.7); Neutrophils % (A) 90 %; Platelet Count 249 k/uL (150-450); RBC 3.87 m/uL (3.80-5.40); RDW 13.6 % (11.5-15.5); WBC 13.6 k/uL (3.8-10.6)
[2019-10-07 07:10] LABS: Glucose,Whole Blood 188 mg/dL (75-99)
[2019-10-07 07:26] LABS: Albumin 3.1 g/dL (3.5-5.0); Calcium 8.8 mg/dL (8.4-10.2); Potassium 4.6 mmol/L (3.5-5.1); Total Bilirubin 1.5 mg/dL (0.2-1.3); Total Protein 6.2 g/dL (6.3-8.2)
[2019-10-07 07:27] LABS: Magnesium 1.5 mg/dL (1.6-2.3)
[2019-10-07] MEDS: HYDROmorphone 1 MG/ML 1 ML SYRINGE IVP PRN (08:26)
[2019-10-07] MEDS: carvediloL 12.5 MG TAB PO SCH (08:29)
[2019-10-07] MEDS: DULoxetine HCL 60 MG CAPSULE.DR PO SCH (08:29)
[2019-10-07] MEDS: PANTOPRAZOLE 40 MG TABLET PO SCH (08:29)
[2019-10-07] MEDS: TOPIRAMATE 25 MG TAB PO SCH (08:29)
[2019-10-07] MEDS: ASPIRIN 81 MG PO SCH (08:29)
[2019-10-07] MEDS: amLODIPine 10 MG TAB PO SCH (08:29)
[2019-10-07] MEDS: PREGABALIN 75 MG CAP PO SCH (08:29)
[2019-10-07] MEDS: FERROUS SULFATE 325 MG TAB PO SCH (08:29)
[2019-10-07] MEDS: ATORVASTATIN 40 MG TAB PO SCH (08:29)
[2019-10-07] MEDS: HEPARIN SODIUM,PORCINE 5,000 UNIT/ML 1 ML VIAL SQ SCH (08:30)
[2019-10-07] MEDS ORDERED: MAGNESIUM SULFATE-D5W PMX 1 GM in DEXTROSE/WATER 1 100ML.BAG IVPB ONE (08:45)
[2019-10-07] MEDS: INSULIN ASPART (NovoLOG) 100 UNIT/ML VIAL SQ SCH ×2 (08:46→12:42)
--- NOTE | 2019-10-07 10:22 | P.PN ---
<Elsy Kan - Last Filed: 10/07/19 10:12> Subjective Progress Note Date: 10/07/19 CHIEF COMPLAINT: Gallstone pancreatitis HISTORY OF PRESENT ILLNESS: Alma Vivar is a 64-year-old female admitted for gallstone pancreatitis with elevated total bilirubin to 3.6 including elevated AST ALT and lipase. Patient is status post robotic laparoscopic lysis of adhesions and laparoscopic cholecystectomy. Patient is currently tolerating low fat diet. She is passing gas. She is complaining of some abdominal pain. She denies any nausea or vomiting. She is afebrile. WBC is 13.6 magnesium 1.5 AST 113 ALT 75 alk phos 446 PHYSICAL EXAM: VITAL SIGNS: Reviewed GENERAL: Well-developed in no acute distress. HEENT: No sclera icterus. Extraocular movements grossly intact. Moist buccal mucosa. Head is atraumatic, normocephalic. Hears conversational speech. No nasal drainage. NECK: Supple without lymphadenopathy. CHEST: Non-labored respirations and equal bilateral excursions. CARDIOVASCULAR: Palpable 2+ radial pulses. ABDOMEN: Soft. Nondistended. Abdominal binder in place. MUSCULOSKELETAL: No clubbing or cyanosis. NEUROLOGIC: No focal or lateralizing signs. Cranial nerves II through XII grossly intact. PSYCH: Appropriate affect. Alert and oriented to person, place and time. SKIN: Well perfused. Good skin turgor. ASSESSMENT: 1. Gallstone pancreatitis with acute pancreatitis POD #1 status post Robotic- assisted da Oscar Xi laparoscopic lysis of adhesions and laparoscopic cholecystectomy 2. Elevated liver enzymes 3. Morbid obesity due to excess calories BMI of 41.8 4. Diabetes type 2 insulin dependent. 5. Cardiomyopathy, diastolic dysfunction 6. History of stroke. 7. Iron-deficiency anemia. 8. Depression. 9. Chronic pain syndrome. 10. Renal insufficiency, stage III due to diabetes 11. Status post sleeve gastrectomy 12. Pulmonary hypertension 13. Peritoneal adhesions 14. Mirizzi Syndrome 15. Chronic antiplatelet therapy 16. Hepatomegaly PLAN: -Okay to be discharged from surgical standpoint. -Okay to resume Plavix on 10/10/2019 -Continue low-fat diet. Physician Mud Jack Operator note has been reviewed by physician. Signing provider agrees with the documented findings, assessment, and plan of care. Objective - Vital Signs Vital signs: Vital Signs Temp 98.2 F 10/07/19 04:22 Pulse 75 10/07/19 04:22 Resp 18 10/07/19 04:22 BP 139/77 10/07/19 04:22 Pulse Ox 93 L 10/07/19 04:22 Intake & Output 10/06/19 10/07/19 10/07/19 18:59 06:59 18:59 Intake Total 2150 390 Output Total 100 Balance 2049 390 Intake: IV 2049 Intake, IV Titration 100 100 Amount Piperacillin-Tazobactam 3 100 .375 gm In Sodium Chloride 0.9% 100 ml @ 25 mls/hr IVPB Q8HR [facility] Rx# :[id number] ceFAZolin 3 gm In Sodium 100 Chloride 0.9% 100 ml @ 200 mls/hr IVPB ONCE ONE Rx#:[id number] Oral 290 Output: Estimated Blood Loss 100 Other: Voiding Method Bedside Commode Bedside Commode Diaper Diaper Incontinent Incontinent # Voids 2 1 - Labs CBC & Chem 7: 10/07/19 06:23 10/07/19 06:23 Labs: Abnormal Lab Results - Last 24 Hours (Table) 10/06/19 10/06/19 10/06/19 Range/Units 11:27 14:28 18:23 WBC (3.8-10.6) k/uL MCV (80.0-100.0) fL MCHC (31.0-37.0) g/dL Neutrophils # (1.3-7.7) k/uL Lymphocytes # (1.0-4.8) k/uL BUN (7-17) mg/dL Creatinine (0.52-1.04) mg/dL Glucose (74-99) mg/dL POC Glucose (mg/dL) 209 H 182 H 247 H (75-99) mg/dL Magnesium (1.6-2.3) mg/dL Total Bilirubin (0.2-1.3) mg/dL AST (14-36) U/L ALT (4-34) U/L Alkaline Phosphatase (38-126) U/L Total Protein (6.3-8.2) g/dL Albumin (3.5-5.0) g/dL 10/06/19 10/07/19 10/07/19 Range/Units 20:04 06:23 06:23 WBC 13.6 H (3.8-10.6) k/uL MCV 101.0 H (80.0-100.0) fL MCHC 30.3 L (31.0-37.0) g/dL Neutrophils # 12.2 H (1.3-7.7) k/uL Lymphocytes # 0.7 L (1.0-4.8) k/uL BUN 20 H (7-17) mg/dL Creatinine 1.20 H (0.52-1.04) mg/dL Glucose 168 H (74-99) mg/dL POC Glucose (mg/dL) 244 H (75-99) mg/dL Magnesium 1.5 L (1.6-2.3) mg/dL Total Bilirubin 1.5 H (0.2-1.3) mg/dL AST 113 H (14-36) U/L ALT 75 H (4-34) U/L Alkaline Phosphatase 446 H (38-126) U/L Total Protein 6.2 L (6.3-8.2) g/dL Albumin 3.1 L (3.5-5.0) g/dL 10/07/19 Range/Units 07:08 WBC (3.8-10.6) k/uL MCV (80.0-100.0) fL MCHC (31.0-37.0) g/dL Neutrophils # (1.3-7.7) k/uL Lymphocytes # (1.0-4.8) k/uL BUN (7-17) mg/dL Creatinine (0.52-1.04) mg/dL Glucose (74-99) mg/dL POC Glucose (mg/dL) 188 H (75-99) mg/dL Magnesium (1.6-2.3) mg/dL Total Bilirubin (0.2-1.3) mg/dL AST (14-36) U/L ALT (4-34) U/L Alkaline Phosphatase (38-126) U/L Total Protein (6.3-8.2) g/dL Albumin (3.5-5.0) g/dL <Breann Calero - Last Filed: 10/07/19 11:07> Subjective Patient seen and evaluated. No jaundice on exam. Prior left upper quadrant abdominal pain now resolved. Patient only complains of incisional pain. She may resume her home pain medications. Due to severity of cholecystitis, peyton mmend hold antiplatelet therapy at least 3-5 days until October 09 where she may resume. Information was conveyed to patient including and admitting team regarding starting clopidogrel October 09 Objective - Vital Signs Vital signs: Vital Signs Temp 98.2 F 10/07/19 04:22 Pulse 72 10/07/19 08:00 Resp 18 10/07/19 08:00 BP 139/77 10/07/19 04:22 Pulse Ox 93 L 10/07/19 04:22 Intake & Output 10/06/19 10/07/19 10/07/19 18:59 06:59 18:59 Intake Total 2150 390 240 Output Total 100 Balance 2049 390 240 Intake: IV 2049 Intake, IV Titration 100 100 Amount Piperacillin-Tazobactam 3 100 .375 gm In Sodium Chloride 0.9% 100 ml @ 25 mls/hr IVPB Q8HR [facility] Rx# :[id number] ceFAZolin 3 gm In Sodium 100 Chloride 0.9% 100 ml @ 200 mls/hr IVPB ONCE ONE Rx#:[id number] Oral 290 240 Output: Estimated Blood Loss 100 Other: Voiding Method Bedside Commode Bedside Commode Bedside Commode Diaper Diaper Diaper Incontinent Incontinent Incontinent # Voids 2 1 - Labs CBC & Chem 7: 10/07/19 06:23 10/07/19 06:23 Labs: Abnormal Lab Results - Last 24 Hours (Table) 10/06/19 10/06/19 10/06/19 Range/Units 11:27 14:28 18:23 WBC (3.8-10.6) k/uL MCV (80.0-100.0) fL MCHC (31.0-37.0) g/dL Neutrophils # (1.3-7.7) k/uL Lymphocytes # (1.0-4.8) k/uL BUN (7-17) mg/dL Creatinine (0.52-1.04) mg/dL Glucose (74-99) mg/dL POC Glucose (mg/dL) 209 H 182 H 247 H (75-99) mg/dL Magnesium (1.6-2.3) mg/dL Total Bilirubin (0.2-1.3) mg/dL AST (14-36) U/L ALT (4-34) U/L Alkaline Phosphatase (38-126) U/L Total Protein (6.3-8.2) g/dL Albumin (3.5-5.0) g/dL 10/06/19 10/07/19 10/07/19 Range/Units 20:04 06:23 06:23 WBC 13.6 H (3.8-10.6) k/uL MCV 101.0 H (80.0-100.0) fL MCHC 30.3 L (31.0-37.0) g/dL Neutrophils # 12.2 H (1.3-7.7) k/uL Lymphocytes # 0.7 L (1.0-4.8) k/uL BUN 20 H (7-17) mg/dL Creatinine 1.20 H (0.52-1.04) mg/dL Glucose 168 H (74-99) mg/dL POC Glucose (mg/dL) 244 H (75-99) mg/dL Magnesium 1.5 L (1.6-2.3) mg/dL Total Bilirubin 1.5 H (0.2-1.3) mg/dL AST 113 H (14-36) U/L ALT 75 H (4-34) U/L Alkaline Phosphatase 446 H (38-126) U/L Total Protein 6.2 L (6.3-8.2) g/dL Albumin 3.1 L (3.5-5.0) g/dL 10/07/19 Range/Units 07:08 WBC (3.8-10.6) k/uL MCV (80.0-100.0) fL MCHC (31.0-37.0) g/dL Neutrophils # (1.3-7.7) k/uL Lymphocytes # (1.0-4.8) k/uL BUN (7-17) mg/dL Creatinine (0.52-1.04) mg/dL Glucose (74-99) mg/dL POC Glucose (mg/dL) 188 H (75-99) mg/dL Magnesium (1.6-2.3) mg/dL Total Bilirubin (0.2-1.3) mg/dL AST (14-36) U/L ALT (4-34) U/L Alkaline Phosphatase (38-126) U/L Total Protein (6.3-8.2) g/dL Albumin (3.5-5.0) g/dL Assessment and Plan (1) History of sleeve gastrectomy Current Visit: Yes Status: Acute Code(s): Z90.3 - ACQUIRED ABSENCE OF STOMACH [PART OF] SNOMED Code(s): 133693677990231 (2) Fibromyalgia Current Visit: Yes Status: Acute Code(s): M79.7 - FIBROMYALGIA SNOMED Code(s): 742547058 (3) Choledocholithiasis Current Visit: Yes Status: Acute Code(s): K80.50 - CALCULUS OF BILE DUCT W/O CHOLANGITIS OR CHOLECYST W/O OBST SNOMED Code(s): 848161709 (4) Chest pain Current Visit: Yes Status: Acute Code(s): R07.9 - CHEST PAIN, UNSPECIFIED SNOMED Code(s): 07352217 (5) Gallstone pancreatitis Current Visit: Yes Status: Acute Code(s): K85.10 - BILIARY ACUTE PA NCREATITIS WITHOUT NECROSIS OR INFECTION SNOMED Code(s): 72664746 (6) Morbid obesity Current Visit: Yes Status: Acute Code(s): E66.01 - MORBID (SEVERE) OBESITY DUE TO EXCESS CALORIES SNOMED Code(s): 891282970 (7) Renal insufficiency Current Visit: No Status: Acute Code(s): N28.9 - DISORDER OF KIDNEY AND URETER, UNSPECIFIED SNOMED Code(s): 062552060
[2019-10-07 11:31] LABS: Glucose,Whole Blood 220 mg/dL (75-99)
[2019-10-07 12:05] VITALS: BP 127/61; RESP 17; TEMP 98.4
--- NOTE | 2019-10-07 13:39 | P.DS ---
Providers Date of admission: 09/29/19 17:00 Expected date of discharge: 10/07/19 Attending physician: Alix Crawford Consults: 09/29/19 17:00 Consult Physician Urgent Consulting Provider: Breann Calero Consult Reason/Comments: GSpancreatitis Do you want consulting provider notified?: Yes 10/03/19 11:57 Consult Physician Routine Consulting Provider: Gerald Avery Consult Reason/Comments: cardiac clearance Do you want consulting provider notified?: Yes Primary care physician: Mere Moreno Hospital Course: Final diagnosis Acute gallstone pancreatitis Status post cholecystectomy Elevated liver enzymes secondary to gallstone pancreatitis Acute kidney injury, present on admission, improving Sepsis with positive SIRS with fever and leukocytosis, Mostly secondary to acu te cholangitis Dilated gallbladder suspicious for gallbladder dysfunction or cholecystitis, However MRCP no dilated common bile duct Hiatal hernia Morbid obesity Obstructive sleep apnea previous stroke with left hemiparesis Diabetes mellitus Chronic lower extremity edema Hypertension Rheumatoid arthritis GERD Chronic kidney disease Previous stage II coccygeal Depression previous gastric sleeve surgery GI prophylaxis DVT prophylaxis Discharge disposition Patient is being discharged in a stable condition with guarded prognosis to home. Patient will follow-up with Dr. Moreno in the outpatient setting upon discharge. Patient also instructed to follow-up with surgery Dr. Leach along with GI Dr. Estrada in the outpatient setting. Patient will continue on a short course of oral antibiotics in the form of Augmentin twice daily for the next 10 days. Patient will also continue on some Protonix daily. Patient instructed to hold Plavix until after Thursday. Total time taken is greater than 35 minutes. History of present illness This is a 64-year-old female who was recently admitted with left upper abdominal discomfort with nausea and was being closely monitored. Patient was seen and evaluated by surgery and ultimately underwent cholecystectomy. Patient was also evaluated by GI and cardiology for surgical clearance and GI due to gallstone pancreatitis. Patient's liver functions were elevated although his trending down. Patient provided prescriptions to follow-up in the outpatient setting for lab work to monitor the downward trend. Patient tolerated cholecystectomy and is currently on a low fiber diet and will continue at this time. Patient was evaluated by cardiology and Plavix has been on hold for the surgery. Patient underwent stress and echo and was cleared for surgery. Patient instructed to continue to hold Plavix until after 10/10/2019 as she has a high risk for bleeding. Patient will follow-up with Dr. Leach in the outpatient setting in a few days. Patient also instructed to continue using incentive spirometer at least 10 times every hour while awake. Patient was maintained on IV antibiotics and will transition to oral Augmentin twice daily for the next 10 days. Currently no reports of chest pain, shortness of breath, or palpitations. Patient is afebrile. No reports of nausea or vomiting and patient is tolerating diet. Patient will be discharged home today. On exam vital signs are stable. Temp is 98.4 F, pulse is 104, respirations are 17, blood pressure is 127/61, oxygen saturation is 95% on room air. Cardio S1, S2 are muffled. Respiratory system shows diminished breath sounds at the bases with no wheezing or rhonchi noted. Abdomen is soft and nontender. Nervous system shows no focal deficits. Please refer to medication reconciliation sheet for a list of medications. Patient Condition at Discharge: Fair Plan - Discharge Summary Discharge Rx Participant: No New Discharge Prescriptions: New Amoxicillin/Potassium Clav [Augmentin 875-125 Tablet] 1 tab PO Q12HR 10 Days #20 tab Pantoprazole [Protonix] 40 mg PO DAILY #30 tablet.dr Continue DULoxetine HCL [Cymbalta] 60 mg PO BID calcitrioL [Calcitriol] 0.5 mcg PO DAILY Topiramate [Topamax] 25 mg PO BID Ferrous Sulfate [Iron (65 MG Elemental)] 325 mg PO DAILY Atorvastatin [Lipitor] 40 mg PO DAILY Aspirin 81 mg PO DAILY carvediloL [Coreg*] 12.5 mg PO BID Insulin Glargine [Lantus] 32 unit SQ HS lisinopriL [Zestril] 2.5 mg PO DAILY amLODIPine [Norvasc] 10 mg PO DAILY INSULIN ASPART (NovoLOG) [NovoLOG (formulary)] See Protocol SQ AC-TID oxyCODONE-APAP 10-325MG [Percocet 10-325 mg] 1 tab PO QID PRN PRN Reason: Pain Pregabalin [Lyrica] 75 mg PO BID Discontinued Clopidogrel Bisulfate [Plavix] 75 mg PO DAILY Discharge Medication List DULoxetine HCL [Cymbalta] 60 mg PO BID 09/30/13 [History] calcitrioL [Calcitriol] 0.5 mcg PO DAILY 09/30/13 [History] Ferrous Sulfate [Iron (65 MG Elemental)] 325 mg PO DAILY 07/06/16 [History] Topiramate [Topamax] 25 mg PO BID 07/06/16 [History] Aspirin 81 mg PO DAILY 01/06/17 [History] Atorvastatin [Lipitor] 40 mg PO DAILY 01/06/17 [History] carvediloL [Coreg*] 12.5 mg PO BID 04/06/18 [History] Insulin Glargine [Lantus] 32 unit SQ HS 06/05/18 [History] lisinopriL [Zestril] 2.5 mg PO DAILY 09/21/18 [History] INSULIN ASPART (NovoLOG) [NovoLOG (formulary)] See Protocol SQ AC-TID 09/29/19 [History] Pregabalin [Lyrica] 75 mg PO BID 09/29/19 [History] amLODIPine [Norvasc] 10 mg PO DAILY 09/29/19 [History] oxyCODONE-APAP 10-325MG [Percocet 10-325 mg] 1 tab PO QID PRN 09/29/19 [History] Amoxicillin/Potassium Clav [Augmentin 875-125 Tablet] 1 tab PO Q12HR 10 Days #20 tab 10/03/19 [Rx] Pantoprazole [Protonix] 40 mg PO DAILY #30 tablet. 10/03/19 [Rx] Follow up Appointment(s)/Referral(s): Breann Calero MD [STAFF PHYSICIAN] - 10/11/19 11:00 am Jennifer Estrada MD [STAFF PHYSICIAN] - 10/12/19 2:00 pm Mere Moreno DO [Primary Care Provider] - 10/06/19 9:20 am Ambulatory/Diagnostic Orders: ALT [LAB.AMB] Time Frame: 3 Days, Location: None Selected AST [LAB.AMB] Time Frame: 3 Days, Location: None Selected Basic Metabolic Panel [LAB.AMB] Time Frame: 3 Days, Location: None Selected Complete Blood Count w/diff [LAB.AMB] Time Frame: 3 Days, Location: None Selected Patient Instructions/Handouts: *Surgery [facility] - Laparoscopic Cholecystectomy Discharge Instructions, Type 2 Diabetes in Adults: New Diagnosis (DC) Activity/Diet/Wound Care/Special Instructions: Activity Limited until follow-up Continue with low-fat diet and advance slowly as tolerated Continue with antibiotics until finished Continue to hold Plavix until Thursday Follow-up with primary care provider upon discharge Follow-up with surgery in the outpatient setting as scheduled Follow-up with GI in the outpatient setting Repeat labs in 2-3 days Continue using incentive spirometer at least 10 times every hour while awake and increased activity as tolerated Discharge Disposition: HOME SELF-CARE
[2019-10-07] MEDS: ONDANSETRON 4 MG/2 ML VIAL IVP PRN (14:26)
[2019-10-07 15:23] VITALS: PULSE 102
== END 2019-10-07 16:55 | disposition home or self-care (01) | DRG 853 ==
LOC: EC 14:44 → 3SCARD 17:00 → OBSVTOIN 17:00 → 5NMEDONC 10-01 18:53
PROVIDERS: ADMIT Hospitalist; ATTEND Hospitalist
PROC: 0DNW4ZZ Release Peritoneum, Percutaneous Endoscopic Approach (ICD-10-PCS; principal; 2019-10-06 14:50)
PROC: 0FT44ZZ Resection of Gallbladder, Percutaneous Endoscopic Approach (ICD-10-PCS; principal; 2019-10-06 14:50)
PROC: 8E0W4CZ Robotic Assisted Procedure of Trunk Region, Percutaneous Endoscopic Approach (ICD-10-PCS; principal; 2019-10-06 14:50)
DX: A41.9 Sepsis, unspecified organism (principal); K80.67 Calculus of gallbladder and bile duct with acute and chronic cholecystitis with obstruction; K85.10 Biliary acute pancreatitis without necrosis or infection; I42.8 Other cardiomyopathies; I69.354 Hemiplegia and hemiparesis following cerebral infarction affecting left non-dominant side; J98.11 Atelectasis; K82.1 Hydrops of gallbladder; N17.9 Acute kidney failure, unspecified; Z68.41 Body mass index [BMI] 40.0-44.9, adult; D50.9 Iron deficiency anemia, unspecified; E11.22 Type 2 diabetes mellitus with diabetic chronic kidney disease; E66.01 Morbid (severe) obesity due to excess calories; E78.5 Hyperlipidemia, unspecified; F32.9 Major depressive disorder, single episode, unspecified; G47.33 Obstructive sleep apnea (adult) (pediatric); Z99.89 Dependence on other enabling machines and devices; G89.4 Chronic pain syndrome; I08.1 Rheumatic disorders of both mitral and tricuspid valves; I12.9 Hypertensive chronic kidney disease with stage 1 through stage 4 chronic kidney disease, or unspecified chronic kidney disease; I27.20 Pulmonary hypertension, unspecified; R16.0 Hepatomegaly, not elsewhere classified; I87.8 Other specified disorders of veins; K21.9 Gastro-esophageal reflux disease without esophagitis; K44.9 Diaphragmatic hernia without obstruction or gangrene; K59.00 Constipation, unspecified; K66.0 Peritoneal adhesions (postprocedural) (postinfection); K82.8 Other specified diseases of gallbladder; M06.9 Rheumatoid arthritis, unspecified; M79.7 Fibromyalgia; N18.2 Chronic kidney disease, stage 2 (mild); Z79.02 Long term (current) use of antithrombotics/antiplatelets; Z79.4 Long term (current) use of insulin; Z79.82 Long term (current) use of aspirin; Z79.899 Other long term (current) drug therapy; Z80.1 Family history of malignant neoplasm of trachea, bronchus and lung; Z82.49 Family history of ischemic heart disease and other diseases of the circulatory system; Z83.3 Family history of diabetes mellitus; Z87.891 Personal history of nicotine dependence; Z98.84 Bariatric surgery status; Z86.14 Personal history of Methicillin resistant Staphylococcus aureus infection; Z98.42 Cataract extraction status, left eye; Z98.41 Cataract extraction status, right eye; M10.9 Gout, unspecified; M19.90 Unspecified osteoarthritis, unspecified site; Z88.1 Allergy status to other antibiotic agents; Z88.5 Allergy status to narcotic agent; Z88.8 Allergy status to other drugs, medicaments and biological substances; R94.5 Abnormal results of liver function studies
CPT/HCPCS: 36415; 71275; 74181; 76705; 76770; 78452; 80048; 80053; 80061; 80076; 83690; 83735; 83880; 84145; 84484; 85025; 85610; 85730; 87040; 93005; 93017; 93306; 96361; 96374; 96375; 99285

== ENCOUNTER 2019-10-08 21:35 | Inpatient (IN) | payer MEDICARE ==
[2019-10-08] MEDS ORDERED: SODIUM CHLORIDE 0.9% 1,000 ML IV STA (21:57)
[2019-10-08] MEDS ORDERED: HYDROmorphone 0.5 MG/0.5 ML SYRINGE IVP STA (21:57)
[2019-10-08] MEDS ORDERED: ONDANSETRON 4 MG/2 ML VIAL IVP STA (21:57)
[2019-10-08 22:33] LABS: Basophils # (A) 0.1 k/uL (0-0.2); Basophils % (A) 0 %; Eosinophils # (A) 0.3 k/uL (0-0.7); Eosinophils % (A) 1 %; HCT 29.5 % (34.0-46.0); Hypochromasia Marked; Lymphocytes # (A) 0.7 k/uL (1.0-4.8); Lymphocytes % (A) 3 %; MCH 29.6 pg (25.0-35.0); MCHC 29.5 g/dL (31.0-37.0); MCV 100.5 fL (80.0-100.0); Macrocytosis Slight; Mean Platelet Volume 8.3; Monocytes # (A) 0.7 k/uL (0-1.0); Monocytes % (A) 3 %; Neutrophils # (A) 25.6 k/uL (1.3-7.7); Neutrophils % (A) 93 %; Platelet Count 279 k/uL (150-450); RBC 2.94 m/uL (3.80-5.40); RDW 13.9 % (11.5-15.5); WBC 27.5 k/uL (3.8-10.6)
[2019-10-08 22:46] LABS: Partial Thromboplastin Time 29.9 sec (22.0-30.0)
[2019-10-08 22:52] LABS: Albumin 2.6 g/dL (3.5-5.0); Calcium 7.9 mg/dL (8.4-10.2); Magnesium 1.8 mg/dL (1.6-2.3); Potassium 4.5 mmol/L (3.5-5.1); Total Bilirubin 1.2 mg/dL (0.2-1.3); Total Protein 5.2 g/dL (6.3-8.2)
[2019-10-08 22:59] LABS: HGB 8.7 gm/dL (11.4-16.0)
--- NOTE | 2019-10-08 23:41 | CT ---
EXAMINATION TYPE: CT abdomen pelvis wo con DATE OF EXAM: 10/08/2019 COMPARISON: 03/10/2014 HISTORY: LUQ pain CT DLP: 1724.2 mGycm Automated exposure control for dose reduction was used. Images were obtained from the diaphragm to the floor the pelvis with no contrast. There is some pleural thickening and infiltrate and atelectasis at the posterior lung bases. There is hiatal hernia. The bile ducts are not dilated. There is mild fat stranding in the right upper quadra nt consistent with recent surgery. There is some free fluid in the right paracolic gutter. Liver is s omewhat heterogeneous. There is no evidence of splenic mass. There is no evidence of pancreatic mass. The bile ducts are not dilated. There is 6 cm rounded high density mass in the right upper quadrant at the gallbladder surgery site consistent with a hematoma. The stomach is intact. There is previous surgery at the stomach consistent with bariatric surgery. There is no adrenal mass. Kidneys have normal size. There is no hydronephrosis. Ureters are not dilat ed. There is no retroperitoneal adenopathy. Bladder distends smoothly. There is some intermediate den sity fluid in the pelvis. This is seen extending into the cul-de-sac and measures up to 6 cm in thick ness. There is no bowel obstruction. There are some distended small bowel loops consistent with ileus. Lumbar vertebra have normal alignment. There is no compression fracture. There is multilevel spondylo tic changes in the lumbar spine. The bony pelvis is intact. IMPRESSION: There is cholecystectomy. There is high attenuation areas in the right upper quadrant and in the pelv is consistent with extensive intraperitoneal hemorrhage. There is lower attenuation fluid in the righ t paracolic gutter and around the spleen. This is consistent with acute and chronic hematoma. Bile le ak is not excluded. There is some infiltrate and atelectasis at the posterior lung bases. Abnormalities are new compared to old CT scan. Distended small bowel consistent with small bowel ileus. I do not suspect a mechanical bowel obstruct ion.
--- NOTE | 2019-10-09 00:06 | ED ---
General Adult HPI - General Chief complaint: Weakness Stated complaint: weakness Time Seen by Provider: 10/08/19 21:39 Source: patient, EMS Mode of arrival: EMS Limitations: no limitations - History of Present Illness Initial comments: 64-year-old female patient presents to the emergency department today for evaluation of generalized weakness and abdominal pain. Patient is postop day #3 after having a cholecystectomy with Dr. Calero. Patient states that she was discharged from the hospital yesterday. States that since she got home she has been unable to get out of bed. States she feels very weak. States she is experiencing pain in her left upper quadrant of her abdomen. States it has worsened since being discharged. They she has no appetite she did have a small drink of water and a small piece of muffin today only. She denies any fever or chills. Denies chest pain or shortness of breath. Denies any hematuria, dysuria, urinary frequency, urinary urgency. Denies cough or congestion. Denies drainage from her incisions. Patient denies any recent rash, cough, diarrhea, constipation, back pain, numbness, tingling, dizziness, headache, visual changes, or any other complaints. - Related Data Home Medications Medication Instructions Recorded Confirmed DULoxetine HCL [Cymbalta] 60 mg PO BID 09/30/13 09/29/19 calcitrioL [Calcitriol] 0.5 mcg PO DAILY 09/30/13 09/29/19 Ferrous Sulfate [Iron (65 MG 325 mg PO DAILY 07/06/16 09/29/19 Elemental)] Topiramate [Topamax] 25 mg PO BID 07/06/16 09/29/19 Aspirin 81 mg PO DAILY 01/06/17 09/29/19 Atorvastatin [Lipitor] 40 mg PO DAILY 01/06/17 09/29/19 carvediloL [Coreg*] 12.5 mg PO BID 04/06/18 09/29/19 Insulin Glargine [Lantus] 32 unit SQ HS 06/05/18 09/29/19 lisinopriL [Zestril] 2.5 mg PO DAILY 09/21/18 09/29/19 INSULIN ASPART (NovoLOG) [NovoLOG See Protocol SQ AC-TID 09/29/19 09/29/19 (formulary)] Pregabalin [Lyrica] 75 mg PO BID 09/29/19 09/29/19 amLODIPine [Norvasc] 10 mg PO DAILY 09/29/19 09/29/19 oxyCODONE-APAP 10-325MG [Percocet 1 tab PO QID PRN 09/29/19 09/29/19 10-325 mg] Previous Rx's Medication Instructions Recorded Amoxicillin/Potassium Clav 1 tab PO Q12HR 10 Days #20 tab 10/03/19 [Augmentin 875-125 Tablet] Pantoprazole [Protonix] 40 mg PO DAILY #30 tablet. 10/03/19 Allergies Allergy/AdvReac Type Severity Reaction Status Date / Time No Known Allergies Allergy Verified 10/06/19 14:20 Review of Systems ROS Statement: Those systems with pertinent positive or pertinent negative responses have been documented in the HPI. ROS Other: All systems not noted in ROS Statement are negative. 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 lt side weaker than rt", vertigo, neck pain, mini stroke nov 2016. no cpap used. right big toe ulcer. 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 Date of last positivie culture/infection: 02/24/19 MDRO Source:: Left Ear Past Surgical History: Breast Surgery Additional Past Surgical History / Comment(s): breast biopsy, gastric sleeve , colonoscopy 04/14/14 bilateral cataract surgery Past Anesthesia/Blood Transfusion Reactions: Motion Sickness Past Psychological History: Depression Smoking Status: Never smoker Past Alcohol Use History: None Reported Past Drug Use History: None Reported - Past Family History Mother Family Medical History: Diabetes Mellitus Additional Family Medical History / Comment(s): heart attack, Brother of lung cancer 04/19/14 Father Family Medical History: Cancer Additional Family Medical History / Comment(s): lung cancer Brother(s) Family Medical History: Cancer Additional Family Medical History / Comment(s): LUNG General Exam Limitations: no limitations General appearance: alert, in no apparent distress, obese, other (Physical well- developed, well-nourished adult female patient in no acute distress. Vital signs upon presentation are temperature 98.3F, pulse 103, respirations 18, blood pressure 114/58, pulse ox 96% on room air.) Eye exam: Present: normal appearance, PERRL, EOMI. Absent: scleral icterus, conjunctival injection, periorbital swelling Respiratory exam: Present: normal lung sounds bilaterally. Absent: respiratory distress, wheezes, rales, rhonchi, stridor Cardiovascular Exam: Present: regular rate, normal rhythm, normal heart sounds. Absent: systolic murmur, diastolic murmur, rubs, gallop, clicks GI/Abdominal exam: Present: soft, tenderness (Generalized tenderness), normal bowel sounds, other (Multiple incision sites to the abdomen do have surrounding ecchymosis but no evidence for drainage or erythema.). Absent: distended, guarding, rebound, rigid Neurological exam: Present: alert, oriented X3, CN II-XII intact Psychiatric exam: Present: normal affect, normal mood Skin exam: Present: warm, dry, intact, pallor. Absent: rash Course Vital Signs 10/08/19 10/08/19 21:38 22:47 Temperature 98.3 F Pulse Rate 103 H 102 H Respiratory 18 Rate Blood Pressure 114/58 111/49 O2 Sat by Pulse 96 97 Oximetry - Reevaluation(s) Reevaluation #1: 10/09/19 00:[address] scan at 2355 showed a extensive intraperitoneal hemorrhage. Patient did have a decreased hemoglobin at 8.7 today down from 11 yesterday. We did order a unit of red blood cells with type and screen. My attending Dr. Johnson Was informed and paged her surgeon Dr. Calero. Reevaluation #2: 10/09/19 00:29 Patient's blood pressure has now decreased to 98 over 50s. We will add an additional unit of red cells to be transfused. Patient in eyes any symptoms and is currently alert and oriented. Still awaiting Dr. Calero's return call. EKG Findings - EKG Comments: EKG Findings:: EKG obtained at 2231 shows sinus tachycardia with ventricular rate of 102, MI interval 138, QRS duration 88, QT 368, QTC 479. No evidence of ST elevation or depression. Medical Decision Making - Medical Decision Making 64 year-old female patient who is postop day #3 after having cholecystectomy with Dr. Calero on presents to the emergency department today for evaluation of generalized weakness, increased abdominal pain. Physical examination did reveal intact abdominal incisions with no evidence for infection or drainage. She did have generalized abdominal tenderness. Patient does exhibit mild tachycardia but had no other abnormal vital signs. Labs reviewed and did reveal an increased white blood cell count at 27.5, this is compared to 13,000 yesterday. Patient also had hemoglobin of 8.7 which is decreased from around 11 yesterday. Patient did have increase in BUN and creatinine. Coags are normal. A CT of the abdomen without contrast was obtained and showed shantanu dence for extensive intraperitoneal hemorrhage with a 6 cm hematoma near the surgical site. We did order type and screen with 1 unit to transfuse. Vital signs remained stable. My attending Dr. Landin is informed and will be notifying Dr. Calero NICOLASA. Plan is to admit to the ICU to Dr. Calero. Dr. Ragland is consulted. She will receive 2 units of packed red blood cells. CBC every 4 hours. Did discuss all findings and plan with the patient and her family, they are agreeable. - Lab Data Result diagrams: 10/08/19 22:07 10/08/19 22:07 Lab Results 10/08/19 10/08/19 10/08/19 Range/Units 22:07 22:07 22:07 WBC 27.5 H (3.8-10.6) k/uL RBC 2.94 L (3.80-5.40) m/uL Hgb 8.7 L D (11.4-16.0) gm/dL Hct 29.5 L (34.0-46.0) % MCV 100.5 H (80.0-100.0) fL MCH 29.6 (25.0-35.0) pg MCHC 29.5 L (31.0-37.0) g/dL RDW 13.9 (11.5-15.5) % Plt Count 279 (150-450) k/uL Neutrophils % 93 % Lymphocytes % 3 % Monocytes % 3 % Eosinophils % 1 % Basophils % 0 % Neutrophils # 25.6 H (1.3-7.7) k/uL Lymphocytes # 0.7 L (1.0-4.8) k/uL Monocytes # 0.7 (0-1.0) k/uL Eosinophils # 0.3 (0-0.7) k/uL Basophils # 0.1 (0-0.2) k/uL Manual Slide Review Performed Hypochromasia Marked Macrocytosis Slight PT 10.0 (9.0-12.0) sec INR 1.0 (<1.2) APTT 29.9 (22.0-30.0) sec Sodium 133 L (137-145) mmol/L Potassium 4.5 (3.5-5.1) mmol/L Chloride 106 (98-107) mmol/L Carbon Dioxide 16 L (22-30) mmol/L Anion Gap 11 mmol/L BUN 35 H (7-17) mg/dL Creatinine 2.45 H (0.52-1.04) mg/dL Est GFR (CKD-EPI)AfAm 23 (>60 ml/min/1.73 sqM) Est GFR (CKD-EPI)NonAf 20 (>60 ml/min/1.73 sqM) Glucose 241 H (74-99) mg/dL Plasma Lactic Acid Flex (0.7-2.0) mmol/L Calcium 7.9 L (8.4-10.2) mg/dL Magnesium 1.8 (1.6-2.3) mg/dL Total Bilirubin 1.2 (0.2-1.3) mg/dL AST 67 H (14-36) U/L ALT 37 H (4-34) U/L Alkaline Phosphatase 312 H (38-126) U/L Troponin I (0.000-0.034) ng/mL Total Protein 5.2 L (6.3-8.2) g/dL Albumin 2.6 L (3.5-5.0) g/dL Lipase (23-300) U/L Blood Type Blood Type Recheck Bld Type Recheck Status Antibody Screen Crossmatch Spec Expiration Date 10/08/19 10/08/19 10/08/19 Range/Units 22:07 22:07 22:07 WBC (3.8-10.6) k/uL RBC (3.80-5.40) m/uL Hgb (11.4-16.0) gm/dL Hct (34.0-46.0) % MCV (80.0-100.0) fL MCH (25.0-35.0) pg MCHC (31.0-37.0) g/dL RDW (11.5-15.5) % Plt Count (150-450) k/uL Neutrophils % % Lymphocytes % % Monocytes % % Eosinophils % % Basophils % % Neutrophils # (1.3-7.7) k/uL Lymphocytes # (1.0-4.8) k/uL Monocytes # (0-1.0) k/uL Eosinophils # (0-0.7) k/uL Basophils # (0-0.2) k/uL Manual Slide Review Hypochromasia Macrocytosis PT (9.0-12.0) sec INR (<1.2) APTT (22.0-30.0) sec Sodium (137-145) mmol/L Potassium (3.5-5.1) mmol/L Chloride (98-107) mmol/L Carbon Dioxide (22-30) mmol/L Anion Gap mmol/L BUN (7-17) mg/dL Creatinine (0.52-1.04) mg/dL Est GFR (CKD-EPI)AfAm (>60 ml/min/1.73 sqM) Est GFR (CKD-EPI)NonAf (>60 ml/min/1.73 sqM) Glucose (74-99) mg/dL Plasma Lactic Acid Flex 1.8 (0.7-2.0) mmol/L Calcium (8.4-10.2) mg/dL Magnesium (1.6-2.3) mg/dL Total Bilirubin (0.2-1.3) mg/dL AST (14-36) U/L ALT (4-34) U/L Alkaline Phosphatase (38-126) U/L Troponin I 0.050 H* (0.000-0.034) ng/mL Total Protein (6.3-8.2) g/dL Albumin (3.5-5.0) g/dL Lipase 54 (23-300) U/L Blood Type Blood Type Recheck Bld Type Recheck Status Antibody Screen Crossmatch Spec Expiration Date 10/09/19 Range/Units 00:06 WBC (3.8-10.6) k/uL RBC (3.80-5.40) m/uL Hgb (11.4-16.0) gm/dL Hct (34.0-46.0) % MCV (80.0-100.0) fL MCH (25.0-35.0) pg MCHC (31.0-37.0) g/dL RDW (11.5-15.5) % Plt Count (150-450) k/uL Neutrophils % % Lymphocytes % % Monocytes % % Eosinophils % % Basophils % % Neutrophils # (1.3-7.7) k/uL Lymphocytes # (1.0-4.8) k/uL Monocytes # (0-1.0) k/uL Eosinophils # (0-0.7) k/uL Basophils # (0-0.2) k/uL Manual Slide Review Hypochromasia Macrocytosis PT (9.0-12.0) sec INR (<1.2) APTT (22.0-30.0) sec Sodium (137-145) mmol/L Potassium (3.5-5.1) mmol/L Chloride (98-107) mmol/L Carbon Dioxide (22-30) mmol/L Anion Gap mmol/L BUN (7-17) mg/dL Creatinine (0.52-1.04) mg/dL Est GFR (CKD-EPI)AfAm (>60 ml/min/1.73 sqM) Est GFR (CKD-EPI)NonAf (>60 ml/min/1.73 sqM) Glucose (74-99) mg/dL Plasma Lactic Acid Flex (0.7-2.0) mmol/L Calcium (8.4-10.2) mg/dL Magnesium (1.6-2.3) mg/dL Total Bilirubin (0.2-1.3) mg/dL AST (14-36) U/L ALT (4-34) U/L Alkaline Phosphatase (38-126) U/L Troponin I (0.000-0.034) ng/mL Total Protein (6.3-8.2) g/dL Albumin (3.5-5.0) g/dL Lipase (23-300) U/L Blood Type A Positive Blood Type Recheck No Previous Record Bld Type Recheck Status CABO Indicated Antibody Screen NEGATIVE Crossmatch See Detail Spec Expiration Date 10/12/2019 - 2306 - Radiology Data Radiology results: report reviewed, image reviewed CT abdomen and pelvis without contrast is obtained. Report was reviewed in its entirety. Impression by Dr. Rush shows cholecystectomy. High attenuation areas in the right upper quadrant in the pelvis are consistent with extensive intraperitoneal hemorrhage. There is low attenuation fluid in the right paracolic gutter and around the spleen. This is consistent with acute and chron ic hematoma. Bile leak is not excluded. There is some infiltrate and atelectasis of the posterior lung bases. Abnormalities are new compared to old computed tomography scan. Distended small bowel consistent with small bowel ileus. I do not suspect mechanical bowel obstruction. Disposition Clinical Impression: Intraperitoneal hemorrhage, Acute on chronic renal failure, Symptomatic anemia Disposition: ADMITTED IP TO THIS [facility] Condition: Serious Referrals: Mere Rodriguez DO [Primary Care Provider] - 1-2 days Decision to Admit Reason: Admit from EC Decision Date: 10/09/19 Decision Time: 00:18
[2019-10-09] MEDS ORDERED: NALOXONE 0.4 MG/ML 1 ML VIAL IV PRN (00:45)
[2019-10-09] MEDS: HYDROmorphone 0.5 MG/0.5 ML SYRINGE IVP PRN (02:13)
[2019-10-09 02:48] LABS: Glucose,Whole Blood 282 mg/dL (75-99)
[2019-10-09 03:13] LABS: Appearance,Urine Cloudy (Clear); Bilirubin,Urine 1+ (Negative); Blood,Urine Negative (Negative); Color,Urine Dark Yellow; Glucose,Urine (UA) 1+ (Negative); Ketones,Urine Trace (Negative); Leukocyte Esterase,Urine Moderate (Negative); Nitrite,Urine Negative (Negative); Protein,Urine 1+ (Negative); RBC,Urine 2 /hpf (0-5); Specific Gravity,Urine 1.018 (1.001-1.035); Squamous Epithelial Cell,Urine <1 /hpf (0-4); WBC,Urine 5 /hpf (0-5)
[2019-10-09 05:05] LABS: Calcium 8.1 mg/dL (8.4-10.2)
[2019-10-09 05:16] LABS: Potassium 5.1 mmol/L (3.5-5.1)
[2019-10-09 06:54] LABS: Glucose,Whole Blood 296 mg/dL (75-99)
[2019-10-09] MEDS: INSULIN ASPART (NovoLOG) 100 UNIT/ML VIAL SQ SCH ×4 (06:59→20:43)
[2019-10-09] MEDS ORDERED: WATER FOR INJECTION, STERILE 1,000 ML with SODIUM ACETATE 150 MEQ IV SCH ×2 (08:00)
[2019-10-09] MEDS: amLODIPine 10 MG TAB PO SCH (08:21)
[2019-10-09] MEDS: PREGABALIN 75 MG CAP PO SCH ×2 (08:21→20:46)
[2019-10-09] MEDS: PANTOPRAZOLE 40 MG TABLET PO SCH (08:29)
[2019-10-09] MEDS: carvediloL 12.5 MG TAB PO SCH ×2 (08:29→16:14)
[2019-10-09] MEDS ORDERED: INSULIN DETEMIR (LEVEMIR) 100 UNIT/ML SYR SQ SCH (08:30)
[2019-10-09] MEDS: DEXTROSE 5% IN WATER 1,000 ML with SODIUM BICARB (1 MEQ/ML) 150 ML IV SCH ×2 (08:38→20:58)
[2019-10-09] MEDS: TOPIRAMATE 25 MG TAB PO SCH ×2 (08:39→20:58)
[2019-10-09 08:40] LABS: HGB 9.4 gm/dL (11.4-16.0); Hypochromasia Marked; MCHC 30.2 g/dL (31.0-37.0); MCV 99.1 fL (80.0-100.0); Macrocytosis Slight; Mean Platelet Volume 8.3; Platelet Count 252 k/uL (150-450); RBC 3.12 m/uL (3.80-5.40); RDW 14.6 % (11.5-15.5); WBC 22.9 k/uL (3.8-10.6)
[2019-10-09 08:44] LABS: Glucose,Whole Blood 280 mg/dL (75-99)
[2019-10-09] MEDS ORDERED: DULoxetine HCL 60 MG CAPSULE.DR PO SCH (09:00)
[2019-10-09] MEDS ORDERED: FERROUS SULFATE 325 MG TAB PO SCH (09:00)
--- NOTE | 2019-10-09 10:05 | XR ---
EXAMINATION TYPE: XR chest 1V DATE OF EXAM: 10/09/2019 COMPARISON: 09/21/2018 INDICATION: Routine, weakness TECHNIQUE: Single frontal view of the chest is obtained. FINDINGS: The heart size is normal. The pulmonary vasculature is normal. Mild bibasilar infiltrates are present. This is developing prior study. Correlate for atelectasis or pneumonia. IMPRESSION: 1. Developing bibasilar arteries. Correlate for atelectasis or pneumonia.
--- NOTE | 2019-10-09 10:44 | P.CNPUL ---
History of Present Illness Consult date: 10/09/19 Chief complaint: Abdominal pain History of present illness: This is a 64-year-old male patient who presented emergency department because of generalized abdominal pain more so in the left lower quadrant area and addition to generalized weakness. The patient underwent a laparoscopic cholecystectomy and the patient is postop day #4. She was discharged from the hospital and she was asked to follow-up with surgery on outpatient basis. After going home, she was unable to get out of bed. She felt quite weak. She was expressing pain in the abdomen also in the left upper and left lower quadrant area. She is also feeling nauseated. No emesis. No bright red blood per rectum. Appetite was down. Denies having any chest pain. No cough sputum production chest tightness or wheezing. She was having episodes of diarrhea following her discharge.. The incisions over the anterior abdominal wall there are all dry clean and intact. Note that this patient underwent a robotic-assisted cholecystectomy. She has a previous history of gallstone pancreatitis. She had elevated LFTs secondary to gallstone pancreatitis which recovered. Prior to her surgery, the patient had a dilated gallbladder suspicious for gallbladder dysfunction and the MRCP showed no significant dilatation of the common bile duct. In any rate, the patient underwent her surgery and she was discharged home as the patient was doing well using incentive spirometer and she was maintained on antibiotics and she was discharged home on Augmentin to complete a ten-day course. She was afebrile at the time of her discharge. On yesterday's evaluation, her white cell count was 22.9. Hemoglobin was down to 8.7 and her discharge hemoglobin was 11.8. Her preop hemoglobin was as high as 13.6. She also has stage III kidney disease related diabetes mellitus. The patient creatinine is higher than the based on his up to 2.7. She also developed a non-anion gap metabolic acidosis. The CAT scan of the abdomen and pelvis was done in the emergency department without contrast and showed post cholecystectomy changes and there was high attenuation areas in the right upper quadrant and the pelvis Dr. and around the spleen. This was consistent with acute on chronic hematoma. Bile leak could not be completely excluded based on this study. There was some density fluid in the pelvis and was extending to the cul-de-sac measuring up to 6 cm in size. The patient was given a total of 2 units of packed RBC. Hemoglobin improved. Today I switch her to a bicarb infusion. She is afebrile. Review of Systems Constitutional: Reports as per HPI Eyes: denies as per HPI Ears: deny: decreased hearing Ears, nose, mouth and throat: Reports as per HPI Gastrointestinal: Reports abdominal pain, Reports nausea Musculoskeletal: Reports limitation of motion Musculoskeletal: bilateral: ankle swelling, foot swelling Integumentary: Reports onychomycosis, Reports unusual bruising (abdomen, post surgical) Neurological: Reports weakness Psychiatric: Reports change in appetite, Reports depression Endocrine: Reports fatigue Hematologic/Lymphatic: Reports as per HPI Allergic/Immunologic: Reports as per HPI Past Medical History Past Medical History: CVA/TIA, Diabetes Mellitus, GERD/Reflux, Hyperlipidemia, Hypertension, Renal Disease, Rheumatoid Arthritis (RA), Sleep Apnea/CPAP/BIPAP Additional Past Medical History / Comment(s): CKD stage 3, broken Lt foot 2011- no sx, stroke 2004 affected non dominant lt side . lt side weaker than rt", vertigo, neck pain, mini stroke nov 2016. EARL and she has not used CPAP, RA, HTN, GERD, DM2 , right big toe ulcer. 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 Date of last positivie culture/infection: 02/24/19 MDRO Source:: Left Ear Past Surgical History: Breast Surgery Additional Past Surgical History / Comment(s): breast biopsy, gastric sleeve 11/07/14, colonoscopy 04/14/14 bilateral cataract surgery Past Anesthesia/Blood Transfusion Reactions: Motion Sickness Past Psychological History: Depression Smoking Status: Never smoker Past Alcohol Use History: None Reported Past Drug Use History: None Reported - Past Family History Mother Family Medical History: Diabetes Mellitus Additional Family Medical History / Comment(s): heart attack, Brother of lung cancer 04/19/14 Father Family Medical History: Cancer Additional Family Medical History / Comment(s): lung cancer Brother(s) Family Medical History: Cancer Additional Family Medical History / Comment(s): LUNG Medications and Allergies Home Medications Medication Instructions Recorded Confirmed Type DULoxetine HCL [Cymbalta] 60 mg PO BID 09/30/13 10/09/19 History calcitrioL [Calcitriol] 0.5 mcg PO DAILY 09/30/13 10/09/19 History Ferrous Sulfate [Iron (65 MG 325 mg PO DAILY 07/06/16 10/09/19 History Elemental)] Topiramate [Topamax] 25 mg PO BID 07/06/16 10/09/19 History Aspirin 81 mg PO DAILY 01/06/17 10/09/19 History Atorvastatin [Lipitor] 40 mg PO DAILY 01/06/17 10/09/19 History carvediloL [Coreg*] 12.5 mg PO BID 04/06/18 10/09/19 History Insulin Glargine [Lantus] 32 unit SQ HS 06/05/18 10/09/19 History lisinopriL [Zestril] 2.5 mg PO DAILY 09/21/18 10/09/19 History INSULIN ASPART (NovoLOG) [NovoLOG See Protocol SQ AC-TID 09/29/19 10/09/19 History (formulary)] Pregabalin [Lyrica] 75 mg PO BID 09/29/19 10/09/19 History amLODIPine [Norvasc] 10 mg PO DAILY 09/29/19 10/09/19 History oxyCODONE-APAP 10-325MG [Percocet 1 tab PO QID PRN 09/29/19 10/09/19 History 10-325 mg] Amoxicillin/Potassium Clav 1 tab PO Q12HR 10 Days #20 tab 10/03/19 10/09/19 Rx [Augmentin 875-125 Tablet] Pantoprazole [Protonix] 40 mg PO DAILY #30 tablet. 10/03/19 10/09/19 Rx Allergies Allergy/AdvReac Type Severity Reaction Status Date / Time No Known Allergies Allergy Verified 10/09/19 10:33 Physical Exam Vitals: Vital Signs Temp Pulse Resp BP Pulse Ox 10/09/19 07:11 98.9 F 98 20 145/50 95 10/09/19 07:00 100 28 H 151/57 96 10/09/19 06:30 97 19 151/57 96 10/09/19 06:00 93 18 143/51 96 10/09/19 05:30 95 20 141/49 97 10/09/19 05:00 93 16 137/50 96 10/09/19 04:45 98.0 F 93 17 137/50 96 10/09/19 04:30 96 14 122/59 94 L 10/09/19 04:15 98.2 F 95 20 122/59 98 10/09/19 04:10 97 21 112/52 95 10/09/19 04:05 98.2 F 98 19 112/52 95 10/09/19 04:00 98.2 F 95 18 125/55 95 10/09/19 03:50 96 22 95 10/09/19 03:47 98.2 F 94 18 125/55 94 L 10/09/19 03:40 92 19 116/38 95 10/09/19 03:30 93 21 114/48 10/09/19 03:20 94 20 114/48 96 10/09/19 03:10 98.1 F 92 20 105/42 95 10/09/19 03:00 92 19 121/49 96 10/09/19 02:50 93 21 121/49 95 10/09/19 02:40 96 22 91 L 10/09/19 02:36 93 23 10/09/19 02:12 97.9 F 96 19 127/53 10/09/19 01:57 20 10/09/19 01:42 97.7 F 94 19 110/55 98 10/09/19 01:32 97.9 F 99 19 110/55 10/08/19 22:47 102 H 111/49 97 10/08/19 21:38 98.3 F 103 H 18 114/58 96 Intake and Output 10/08/19 10/09/19 10/09/19 22:59 06:59 14:59 Intake Total 310 310 Output Total 245 35 Balance 65 275 Intake: Blood Product 310 310 Rc As-1 Unit 0 310 [id number] Rc As-1 Unit 310 [id number] Output: Urine 245 35 Other: Voiding Method Indwelling Catheter Weight 136.078 kg 136.2 kg Gen. appearance, comfortable not in acute respiratory distress Head exam was generally normal. There was no scleral icterus or corneal arcus. Mucous membranes were moist. Neck was supple and without jugular venous distension, thyromegaly, or carotid bruits. Carotids were easily palpable bilaterally. There was no adenopathy. Lungs sounds are diminished bilaterally otherwise clear. Cardiac exam revealed the PMI to be normally situated and sized. The rhythm was regular and no extrasystoles were noted during several minutes of auscultation. The first and second heart sounds were normal and physiologic splitting of the second heart sound was noted. There were no murmurs, rubs, clicks, or gallops. Abdomen is soft and the incisions are dry clean and intact. There are some areas of bruising over the anterior abdominal wall secondary to surgery. No direct tenderness. No rebound tenderness. No guarding. Bowel sounds are hypoactive. There is no abdominal distention. Examination of the extremities revealed easily palpable radial, femoral and pedal pulses. There was no cyanosis, clubbing or edema. Examination of the skin revealed no evidence of significant rashes, suspicious appearing nevi or other concerning lesions. Neurologically, the patient is awake and alert and the patient does not have any focal neurological deficit. Cranial nerves are essentially intact. Results - Laboratory Findings CBC and BMP: 10/09/19 08:24 10/09/19 04:40 PT/INR, D-dimer PT 10.0 sec (9.0-12.0) 10/08/19 22:07 INR 1.0 (<1.2) 10/08/19 22:07 Abnormal lab findings: Abnormal Labs 10/08/19 10/08/19 10/08/19 22:07 22:07 22:07 WBC 27.5 H RBC 2.94 L Hgb 8.7 L D Hct 29.5 L MCV 100.5 H MCHC 29.5 L Neutrophils # 25.6 H Lymphocytes # 0.7 L Sodium 133 L Chloride Carbon Dioxide 16 L BUN 35 H Creatinine 2.45 H Glucose 241 H POC Glucose (mg/dL) Calcium 7.9 L AST 67 H ALT 37 H Alkaline Phosphatase 312 H Troponin I 0.050 H* Total Protein 5.2 L Albumin 2.6 L Urine Appearance Urine Protein Urine Glucose (UA) Urine Ketones Urine Bilirubin Ur Leukocyte Esterase Crossmatch 10/09/19 10/09/19 10/09/19 00:06 02:36 02:55 WBC RBC Hgb Hct MCV MCHC Neutrophils # Lymphocytes # Sodium Chloride Carbon Dioxide BUN Creatinine Glucose POC Glucose (mg/dL) 282 H Calcium AST ALT Alkaline Phosphatase Troponin I Total Protein Albumin Urine Appearance Cloudy H Urine Protein 1+ H Urine Glucose (UA) 1+ H Urine Ketones Trace H Urine Bilirubin 1+ H Ur Leukocyte Esterase Moderate H Crossmatch See Detail 10/09/19 10/09/19 04:40 06:52 WBC RBC Hgb Hct MCV MCHC Neutrophils # Lymphocytes # Sodium Chloride 108 H Carbon Dioxide 15 L BUN 41 H Creatinine 2.71 H Glucose 269 H POC Glucose (mg/dL) 296 H Calcium 8.1 L AST ALT Alkaline Phosphatase Troponin I Total Protein Albumin Urine Appearance Urine Protein Urine Glucose (UA) Urine Ketones Urine Bilirubin Ur Leukocyte Esterase Crossmatch Assessment and Plan Plan: 1 intraperitoneal hemorrhage post cholecystectomy. The patient is postop day #4. CAT scan of the abdomen shows high attenuation areas in the right upper quadrant and in the pelvis consistent with bleeding. His most likely intraperitoneal bleed. Possibility of a biliary leak is felt to be less likely and the patient needs to be monitored very closely an general surgery consultation will be needed. 2 post cholecystectomy, robotic-assisted, the patient is postop day #4 3 blood loss anemia with a drop in hemoglobin post transfusion with 2 units of packed RBCs 4 diarrhea, currently inactive in stable 5 non-anion gap metabolic acidosis probably related to diarrhea 6 chronic stage III kidney disease with acute kidney injury on top of chronic renal failure, consider secondary to intravascular volume depletion/dehydration 7 leukocytosis, reactive, most likely noninfectious 8 history of gallstone pancreatitis postcholecystectomy 9 hiatal hernia 10 obesity with a BMI 43.1 11 CVA with some left-sided weakness 12 diabetes mellitus type 2 maintenance on outpatient basis 13 hypertension 14 chronic lower extremity edema 15 acid reflux 15 rheumatoid arthritis 16 history of stage II coccygeal 1 wound 17 previous history of gastric sleeve for morbid obesity with subsequent weight loss Plan Monitor hemoglobin every 6 hours General surgery consultation regarding the intraperitoneal hemorrhage post cholecystectomy. Unlikely to be related to a biliary. Monitor the white cell count Placed the patient a bicarb infusion regarding an anion gap metabolic acidosis Start the patient on her half dose Levemir insulin 16 units daily along with sliding scale coverage coverage Resume all medication
--- NOTE | 2019-10-09 11:33 | P.GSHP ---
History of Present Illness H&P Date: 10/09/19 CHIEF COMPLAINT: Intra-peritoneal hemorrhage HISTORY OF PRESENT ILLNESS: Alma Vivar is a 64-year-old female with multiple medical comorbidities including morbid obesity, history of sleeve gastrectomy, congestive heart failure, chronic renal insufficiency, previous history of strokes, poorly controlled insulin-dependent diabetes, chronic antiplatelet therapy, and depressive disorder who status post cholecystectomy 10/06/19 during recent hospitalization 09/28 to 10/07/19 for atypical chest pain and gallstone pancreatitis. During that hospitalization, patient was on Plavix and had complete cardiac workup. During surgery she had findings of hepatomegaly and acute cholecystitis. Following surgery, she had improvement in her LFTs following discharge including stable hemoglobin 11.5 up to 11.8. She came in last night after being lethargic and having generalized malaise. She came in with acute blood loss anemia with Hgb 8.4 with hypotension on presentation and was transfused [address] scan had showed hematoma intraperitoneal. She was transferred to the ICU. She denies any generalized abdominal pain at the time of my assessment. She reports not resuming her Plavix. She continued her Cymbalta. She reports thirst including left upper quadrant pain present prior to surgery. PAST MEDICAL HISTORY: 1. Cardiomyopathy with congestive heart failure 2. Iron-deficiency anemia. 3. Diabetes type 2. 4. Hypertension. 5. Fibromyalgia. 6. Chronic pain syndrome. 7. Bladder urgency. 8. Renal insufficiency. 9. Gastroesophageal reflux disease. 10. Hiatal hernia. 11. Osteoarthritis. 12. Gout. 13. Depression. 14. Prior history of stroke. PAST SURGICAL HISTORY: 1. Denies any abdominal surgeries. 2. Dilatation and curettage. 3. Left breast biopsy. 4. Left broken foot 2011. 5. Upper endoscopy. 6. Sleeve gastrectomy, 2013 MEDICATIONS: Home Medications Medication Instructions Recorded Confirmed Clopidogrel Bisulfate [Plavix] 75 mg PO DAILY 09/30/13 09/29/19 DULoxetine HCL [Cymbalta] 60 mg PO BID 09/30/13 09/29/19 calcitrioL [Calcitriol] 0.5 mcg PO DAILY 09/30/13 09/29/19 Ferrous Sulfate [Iron (65 MG 325 mg PO DAILY 07/06/16 09/29/19 Elemental)] Topiramate [Topamax] 25 mg PO BID 07/06/16 09/29/19 Aspirin 81 mg PO DAILY 01/06/17 09/29/19 Atorvastatin [Lipitor] 40 mg PO DAILY 01/06/17 09/29/19 carvediloL [Coreg*] 12.5 mg PO BID 04/06/18 09/29/19 Insulin Glargine [Lantus] 32 unit SQ HS 06/05/18 09/29/19 lisinopriL [Zestril] 2.5 mg PO DAILY 09/21/18 09/29/19 INSULIN ASPART (NovoLOG) [NovoLOG See Protocol SQ AC-TID 09/29/19 09/29/19 (formulary)] Pregabalin [Lyrica] 75 mg PO BID 09/29/19 09/29/19 amLODIPine [Norvasc] 10 mg PO DAILY 09/29/19 09/29/19 oxyCODONE-APAP 10-325MG [Percocet 1 tab PO QID PRN 09/29/19 09/29/19 10-325 mg] ALLERGIES: Denies any latex or drug allergies. SOCIAL HISTORY: Denies any illegal drug use. Denies any alcohol use. Lifelong nontobacco user. She has a high-school education. She is . She is currently on a pain contract with her pain medications. FAMILY HISTORY: Denies any personal or family history of gastrointestinal malignancies. She does have a family history of lung cancer. She denies any Crohn disease, DVTs or pulmonary emboli in her family. She denies any lupus within her family as well. REVIEW OF SYSTEMS: CONSTITUTIONAL: At her height of 5 feet 10 inches, highest weight was 343 pounds. Her body mass index was approximately 49.4. Her ideal body weight for her height is 167 pounds. HEENT: Has diabetic retinopathy. Has caps, crowns including loose teeth. Denies any hearing problems. ENDOCRINE: Has been diabetic over 25+ years. She is currently insulin dependent. Previously on insulin pump now off since weight loss. CARDIOVASCULAR: History of stroke in 2007. RESPIRATORY: Denies any asthma or obstructive sleep apnea at present. She does report inability to lie flat for which she must sleep in a chair upright for rest. GI: Denies any blood in stools or change in bowel habits. : Has increased urinary frequency at night. MUSCULOSKELETAL: Diffuse osteoarthritis including myalgias and back pain. Has numbness and tingling. Has physical limitations. Again, sees a provider for her chronic pain syndrome. PSYCH: Has depression without suicidal ideation. HEMATOLOGIC: Denies any abnormal bleeding or bruising. NEURO: Prior history of a stroke, as described. No reports of seizure disorder. PHYSICAL EXAM: VITAL SIGNS: Reviewed GENERAL: Well-developed pleasant female in no acute distress. HEENT: No scleral icterus. Extraocular movements grossly intact. Moist buccal mucosa. NECK: Supple without lymphadenopathy. CHEST: Unlabored respirations. Equal bilateral excursions. CARDIOVASCULAR: 2+ distal pulses. Tachycardic ABDOMEN: Mild right upper pain. Appropriate left upper quadrant incisional pain. She has moderate ecchymosis from heparin shots. : Dark urine and clear. MUSCULOSKELETAL: No clubbing, cyanosis. NEURO: No focal or lateralizing signs. Cranial nerves 2 through 12 grossly within normal limits. PSYCH: Alert and oriented to person place and time. SKIN: Well perfused. Good skin turgor. LABS: Total bilirubin was elevated at 2.1-3.6, now down to 1.2. AST down from 889-341 now 67, ALT down 325-254, now 37. Lipase down 2815 to 292, now normal. WBC elevated from 13.8 on previous discharge to 22.9. Hgb 11.8 to 9.4 STUDIES: CT of the abdomen and pelvis non-contrasted study independently rev iewed demonstrating staple line along hepatic fossa from cholecystectomy. Subcutaneous surgical changes including fluid in pelvis from recent surgery. Study limited by lack of IV contrast due to patient's pre-existing renal disease. RADIOLOGY: CT abdomen and pelvis reviewed however findings limited by lack of IV contrast EKG: Septal lateral infarct, age under determined, sinus tachycardia. ASSESSMENT: 1. Acute blood loss anemia 2. Acute on chronic renal failure with elevated creatinine and oliguria 3. Dehydration 4. Adverse reaction with bleeding from Plavix, Cymbalta, anti-coagulants 5. Pre-existing iron deficiency anemia 6. Congestive cardiomyopathy 7. Insulin-dependent diabetes type 2 8. Morbid obesity PLAN: 1. Agree with ICU management for presentation of hypotension 2. Obtain BNP for history of congestive heart failure 3. Nephrology consultation for acute on chronic renal failure. Patient is on a bicarb gtt per ICU 4. Discontinue Cymbalta with adverse reaction of bleeding from recent Plavix and anti-coagulant use. 5. Change oral to IV iron for iron deficiency anemia and acute blood loss anemia 6. May start clear liquid diet 7. Hold all anti-coagulants. Use mechanical SCDs 8. Start Zosyn for presentation of leukocytosis 9. Inpatient hospitalization more than 2 nights described. Thank you for this consultation Past Medical History Past Medical History: CVA/TIA, Diabetes Mellitus, GERD/Reflux, Hyperlipidemia, Hypertension, Renal Disease, Rheumatoid Arthritis (RA), Sleep Apnea/CPAP/BIPAP Additional Past Medical History / Comment(s): CKD stage 3, broken Lt foot 2011- no sx, stroke 2004 affected non dominant lt side . lt side weaker than rt", vertigo, neck pain, mini stroke nov 2016. ERAL and she has not used CPAP, RA, HTN, GERD, DM2 , right big toe ulcer. 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 Date of last positivie culture/infection: 02/24/19 MDRO Source:: Left Ear Past Surgical History: Breast Surgery Additional Past Surgical History / Comment(s): breast biopsy, gastric sleeve 11/07/14, colonoscopy 04/14/14 bilateral cataract surgery Past Anesthesia/Blood Transfusion Reactions: Motion Sickness Past Psychological History: Depression Smoking Status: Never smoker Past Alcohol Use History: None Reported Past Drug Use History: None Reported - Past Family History Mother Family Medical History: Diabetes Mellitus Additional Family Medical History / Comment(s): heart attack, Brother of lung cancer 04/19/14 Father Family Medical History: Cancer Additional Family Medical History / Comment(s): lung cancer Brother(s) Family Medical History: Cancer Additional Family Medical History / Comment(s): LUNG Medications and Allergies Home Medications Medication Instructions Recorded Confirmed Type DULoxetine HCL [Cymbalta] 60 mg PO BID 09/30/13 10/09/19 History calcitrioL [Calcitriol] 0.5 mcg PO DAILY 09/30/13 10/09/19 History Ferrous Sulfate [Iron (65 MG 325 mg PO DAILY 07/06/16 10/09/19 History Elemental)] Topiramate [Topamax] 25 mg PO BID 07/06/16 10/09/19 History Aspirin 81 mg PO DAILY 01/06/17 10/09/19 History Atorvastatin [Lipitor] 40 mg PO DAILY 01/06/17 10/09/19 History carvediloL [Coreg*] 12.5 mg PO BID 04/06/18 10/09/19 History Insulin Glargine [Lantus] 32 unit SQ HS 06/05/18 10/09/19 History lisinopriL [Zestril] 2.5 mg PO DAILY 09/21/18 10/09/19 History INSULIN ASPART (NovoLOG) [NovoLOG See Protocol SQ AC-TID 09/29/19 10/09/19 History (formulary)] Pregabalin [Lyrica] 75 mg PO BID 09/29/19 10/09/19 History amLODIPine [Norvasc] 10 mg PO DAILY 09/29/19 10/09/19 History oxyCODONE-APAP 10-325MG [Percocet 1 tab PO QID PRN 09/29/19 10/09/19 History 10-325 mg] Amoxicillin/Potassium Clav 1 tab PO Q12HR 10 Days #20 tab 10/03/19 10/09/19 Rx [Augmentin 875-125 Tablet] Pantoprazole [Protonix] 40 mg PO DAILY #30 tablet. 10/03/19 10/09/19 Rx Allergies Allergy/AdvReac Type Severity Reaction Status Date / Time No Known Allergies Allergy Verified 10/09/19 10:33 Surgical - Exam Vital Signs Temp Pulse Resp BP Pulse Ox 98.3 F 103 H 18 114/58 96 10/08/19 21:38 10/08/19 21:38 10/08/19 21:38 10/08/19 21:38 10/08/19 21:38 Results - Labs 10/09/19 16:12 10/09/19 04:40 Abnormal Lab Results - Last 24 Hours (Table) 10/08/19 10/08/19 10/08/19 Range/Units 22:07 22:07 22:07 WBC 27.5 H (3.8-10.6) k/uL RBC 2.94 L (3.80-5.40) m/uL Hgb 8.7 L D (11.4-16.0) gm/dL Hct 29.5 L (34.0-46.0) % MCV 100.5 H (80.0-100.0) fL MCHC 29.5 L (31.0-37.0) g/dL Neutrophils # 25.6 H (1.3-7.7) k/uL Lymphocytes # 0.7 L (1.0-4.8) k/uL Sodium 133 L (137-145) mmol/L Chloride (98-107) mmol/L Carbon Dioxide 16 L (22-30) mmol/L BUN 35 H (7-17) mg/dL Creatinine 2.45 H (0.52-1.04) mg/dL Glucose 241 H (74-99) mg/dL POC Glucose (mg/dL) (75-99) mg/dL Calcium 7.9 L (8.4-10.2) mg/dL AST 67 H (14-36) U/L ALT 37 H (4-34) U/L Alkaline Phosphatase 312 H (38-126) U/L Troponin I 0.050 H* (0.000-0.034) ng/mL Total Protein 5.2 L (6.3-8.2) g/dL Albumin 2.6 L (3.5-5.0) g/dL Urine Appearance (Clear) Urine Protein (Negative) Urine Glucose (UA) (Negative) Urine Ketones (Negative) Urine Bilirubin (Negative) Ur Leukocyte Esterase (Negative) Crossmatch 10/09/19 10/09/19 10/09/19 Range/Units 00:06 02:36 02:55 WBC (3.8-10.6) k/uL RBC (3.80-5.40) m/uL Hgb (11.4-16.0) gm/dL Hct (34.0-46.0) % MCV (80.0-100.0) fL MCHC (31.0-37.0) g/dL Neutrophils # (1.3-7.7) k/uL Lymphocytes # (1.0-4.8) k/uL Sodium (137-145) mmol/L Chloride (98-107) mmol/L Carbon Dioxide (22-30) mmol/L BUN (7-17) mg/dL Creatinine (0.52-1.04) mg/dL Glucose (74-99) mg/dL POC Glucose (mg/dL) 282 H (75-99) mg/dL Calcium (8.4-10.2) mg/dL AST (14-36) U/L ALT (4-34) U/L Alkaline Phosphatase (38-126) U/L Troponin I (0.000-0.034) ng/mL Total Protein (6.3-8.2) g/dL Albumin (3.5-5.0) g/dL Urine Appearance Cloudy H (Clear) Urine Protein 1+ H (Negative) Urine Glucose (UA) 1+ H (Negative) Urine Ketones Trace H (Negative) Urine Bilirubin 1+ H (Negative) Ur Leukocyte Esterase Moderate H (Negative) Crossmatch See Detail 10/09/19 10/09/19 10/09/19 Range/Units 04:40 06:52 08:24 WBC 22.9 H (3.8-10.6) k/uL RBC 3.12 L (3.80-5.40) m/uL Hgb 9.4 L (11.4-16.0) gm/dL Hct 31.0 L (34.0-46.0) % MCV (80.0-100.0) fL MCHC 30.2 L (31.0-37.0) g/dL Neutrophils # (1.3-7.7) k/uL Lymphocytes # (1.0-4.8) k/uL Sodium (137-145) mmol/L Chloride 108 H (98-107) mmol/L Carbon Dioxide 15 L (22-30) mmol/L BUN 41 H (7-17) mg/dL Creatinine 2.71 H (0.52-1.04) mg/dL Glucose 269 H (74-99) mg/dL POC Glucose (mg/dL) 296 H (75-99) mg/dL Calcium 8.1 L (8.4-10.2) mg/dL AST (14-36) U/L ALT (4-34) U/L Alkaline Phosphatase (38-126) U/L Troponin I (0.000-0.034) ng/mL Total Protein (6.3-8.2) g/dL Albumin (3.5-5.0) g/dL Urine Appearance (Clear) Urine Protein (Negative) Urine Glucose (UA) (Negative) Urine Ketones (Negative) Urine Bilirubin (Negative) Ur Leukocyte Esterase (Negative) Crossmatch 10/09/19 Range/Units 08:41 WBC (3.8-10.6) k/uL RBC (3.80-5.40) m/uL Hgb (11.4-16.0) gm/dL Hct (34.0-46.0) % MCV (80.0-100.0) fL MCHC (31.0-37.0) g/dL Neutrophils # (1.3-7.7) k/uL Lymphocytes # (1.0-4.8) k/uL Sodium (137-145) mmol/L Chloride (98-107) mmol/L Carbon Dioxide (22-30) mmol/L BUN (7-17) mg/dL Creatinine (0.52-1.04) mg/dL Glucose (74-99) mg/dL POC Glucose (mg/dL) 280 H (75-99) mg/dL Calcium (8.4-10.2) mg/dL AST (14-36) U/L ALT (4-34) U/L Alkaline Phosphatase (38-126) U/L Troponin I (0.000-0.034) ng/mL Total Protein (6.3-8.2) g/dL Albumin (3.5-5.0) g/dL Urine Appearance (Clear) Urine Protein (Negative) Urine Glucose (UA) (Negative) Urine Ketones (Negative) Urine Bilirubin (Negative) Ur Leukocyte Esterase (Negative) Crossmatch Diabetes panel 10/08/19 10/09/19 Range/Units 22:07 04:40 Sodium 133 L 137 (137-145) mmol/L Potassium 4.5 5.1 (3.5-5.1) mmol/L Chloride 106 108 H (98-107) mmol/L Carbon Dioxide 16 L 15 L (22-30) mmol/L BUN 35 H 41 H (7-17) mg/dL Creatinine 2.45 H 2.71 H (0.52-1.04) mg/dL Glucose 241 H 269 H (74-99) mg/dL Calcium 7.9 L 8.1 L (8.4-10.2) mg/dL AST 67 H (14-36) U/L ALT 37 H (4-34) U/L Alkaline Phosphatase 312 H (38-126) U/L Total Protein 5.2 L (6.3-8.2) g/dL Albumin 2.6 L (3.5-5.0) g/dL Calcium panel 10/08/19 10/09/19 Range/Units 22:07 04:40 Calcium 7.9 L 8.1 L (8.4-10.2) mg/dL Albumin 2.6 L (3.5-5.0) g/dL Pituitary panel 10/08/19 10/09/19 Range/Units 22:07 04:40 Sodium 133 L 137 (137-145) mmol/L Potassium 4.5 5.1 (3.5-5.1) mmol/L Chloride 106 108 H (98-107) mmol/L Carbon Dioxide 16 L 15 L (22-30) mmol/L BUN 35 H 41 H (7-17) mg/dL Creatinine 2.45 H 2.71 H (0.52-1.04) mg/dL Glucose 241 H 269 H (74-99) mg/dL Calcium 7.9 L 8.1 L (8.4-10.2) mg/dL Adrenal panel 10/08/19 10/09/19 Range/Units 22:07 04:40 Sodium 133 L 137 (137-145) mmol/L Potassium 4.5 5.1 (3.5-5.1) mmol/L Chloride 106 108 H (98-107) mmol/L Carbon Dioxide 16 L 15 L (22-30) mmol/L BUN 35 H 41 H (7-17) mg/dL Creatinine 2.45 H 2.71 H (0.52-1.04) mg/dL Glucose 241 H 269 H (74-99) mg/dL Calcium 7.9 L 8.1 L (8.4-10.2) mg/dL Total Bilirubin 1.2 (0.2-1.3) mg/dL AST 67 H (14-36) U/L ALT 37 H (4-34) U/L Alkaline Phosphatase 312 H (38-126) U/L Total Protein 5.2 L (6.3-8.2) g/dL Albumin 2.6 L (3.5-5.0) g/dL Assessment and Plan (1) Acute blood loss anemia Current Visit: Yes Status: Acute Code(s): D62 - ACUTE POSTHEMORRHAGIC ANEMIA SNOMED Code(s): 749447704 (2) Acute on chronic renal failure Current Visit: Yes Status: Acute Code(s): N17.9 - ACUTE KIDNEY FAILURE, UNSPECIFIED; N18.9 - CHRONIC KIDNEY DISEASE, UNSPECIFIED SNOMED Code(s): 838413172 (3) Intraperitoneal hemorrhage Current Visit: Yes Status: Acute Code(s): K66.1 - HEMOPERITONEUM SNOMED Code(s): 201706160 (4) Leukocytosis Current Visit: No Status: Acute Code(s): D72.829 - ELEVATED WHITE BLOOD CELL COUNT, UNSPECIFIED SNOMED Code(s): 057358907 (5) Morbid obesity Current Visit: No Status: Acute Code(s): E66.01 - MORBID (SEVERE) OBESITY DUE TO EXCESS CALORIES SNOMED Code(s): 107276655
[2019-10-09 11:52] LABS: Glucose,Whole Blood 272 mg/dL (75-99)
[2019-10-09] MEDS: SODIUM FERRIC GLUCONAT-SUCROSE 125 MG in SODIUM CHLORIDE 0.9% 100 ML IVPB SCH (12:03)
[2019-10-09] MEDS: PIPERACILLIN-TAZOBACTAM 3.375 GM in SODIUM CHLORIDE 0.9% 100 ML IVPB SCH ×2 (13:36→20:45)
[2019-10-09 16:33] LABS: HCT 27.7 % (34.0-46.0); HGB 8.7 gm/dL (11.4-16.0); Hypochromasia Slight; MCH 30.2 pg (25.0-35.0); MCHC 31.2 g/dL (31.0-37.0); MCV 96.8 fL (80.0-100.0); Mean Platelet Volume 8.4; Platelet Count 257 k/uL (150-450); RBC 2.86 m/uL (3.80-5.40); RDW 14.9 % (11.5-15.5); WBC 25.7 k/uL (3.8-10.6)
[2019-10-09 16:50] LABS: Band Neutrophils % 11 %; Lymphocytes # (M) 1.29 k/uL (1.0-4.8); Monocytes # (M) 1.54 k/uL (0-1.0); Neutrophils % (M) 80 %; Nucleated Red Blood Cells 0 /100 WBC (0-0); Total Cells Counted 200
[2019-10-09 16:51] LABS: Anisocytosis (M) Present; Polychromasia Present
[2019-10-09 17:36] LABS: Glucose,Whole Blood 304 mg/dL (75-99)
[2019-10-09] MEDS ORDERED: ALBUTEROL NEBULIZED 2.5 MG/3 ML INHALATION PRN (17:57)
[2019-10-09 19:07] LABS: Calcium 7.6 mg/dL (8.4-10.2); Potassium 4.2 mmol/L (3.5-5.1)
[2019-10-09] MEDS: ALBUTEROL NEBULIZED 2.5 MG/3 ML INHALATION SCH (19:31)
[2019-10-09 20:39] LABS: Glucose,Whole Blood 297 mg/dL (75-99)
[2019-10-09 22:53] LABS: Basophils # (A) 0.1 k/uL (0-0.2); Basophils % (A) 0 %; Eosinophils # (A) 0.1 k/uL (0-0.7); Eosinophils % (A) 1 %; HCT 25.9 % (34.0-46.0); HGB 7.6 gm/dL (11.4-16.0); Hypochromasia Marked; Lymphocytes % (A) 5 %; MCH 29.3 pg (25.0-35.0); MCHC 29.5 g/dL (31.0-37.0); MCV 99.2 fL (80.0-100.0); Macrocytosis Slight; Monocytes # (A) 0.5 k/uL (0-1.0); Monocytes % (A) 3 %; Neutrophils # (A) 18.4 k/uL (1.3-7.7); Neutrophils % (A) 91 %; Platelet Count 272 k/uL (150-450); RBC 2.61 m/uL (3.80-5.40); RDW 15.1 % (11.5-15.5); WBC 20.3 k/uL (3.8-10.6)
[2019-10-09 23:09] LABS: Calcium 7.5 mg/dL (8.4-10.2); Potassium 3.9 mmol/L (3.5-5.1)
[2019-10-10] MEDS: HYDROmorphone 0.5 MG/0.5 ML SYRINGE IVP PRN ×4 (00:35→20:37)
--- NOTE | 2019-10-10 03:25 | CONS ---
CONSULTATION REASON FOR CONSULTATION: Advice regarding diabetes and other medical issues requested by Dr. Calero. HISTORY OF PRESENT ILLNESS: This 64-year-old woman with a past medical history of diabetes, GERD, hypertension, hyperlipidemia, history of rheumatoid arthritis, history of chronic kidney disease stage 3, surgery, depression being followed by Dr. Rodriguez in the outpatient setting was recently admitted with features of acute gallstone pancreatitis. The patient underwent a cholecystectomy. The patient went home after clearance with Surgery. Subsequently, patient was admitted with weakness, some abdominal pain. The patient had significant drop in hemoglobin to 8.7 from 11. Intraperitoneal bleeding was suspected. Patient was monitored closely. Patient also had renal failure. The creatinine was found to be 2.45 and 2.71. The baseline was around 1.2. The patient was given bicarb drip and the patient will be closely monitored at this time. There is no history of any fever, rigors. No history of headache, loss of consciousness, or seizures at this time. PAST MEDICAL HISTORY: History of recent gallstone pancreatitis and cholecystectomy. Otherwise, history of diabetes mellitus type 2, GERD, hypertension, hyperlipidemia, rheumatoid arthritis, chronic kidney disease. MEDICATIONS: Medications prior to admission include home medications are: 1. Percocet 1 q.i.d. p.r.n. 2. Zestril 2.5 mg daily. 3. Coreg 12.5 mg b.i.d. 4. Calcitriol 0.5 daily. 5. Norvasc 10 mg daily. 6. Topamax 25 mg b.i.d. 7. Lyrica 75 mg b.i.d. 8. Protonix 40 mg. 9. Lantus 32 units subcu at bedtime. 10.NovoLog scale. 11.Iron 325 mg daily. 12.Cymbalta 60 mg p.o. b.i.d. 13.Lipitor 40 mg daily. 14.Aspirin 81 mg daily. 15.Augmentin 1 p.o. b.i.d. ALLERGIES: None. FAMILY HISTORY: History of diabetes mellitus in the family and coronary artery disease. SOCIAL HISTORY: No history of smoking. No history of alcohol intake. REVIEW OF SYSTEMS: ENT: Diminished hearing and diminished vision. CARDIOVASCULAR SYSTEM: No angina. RESPIRATORY SYSTEM: No cough or hemoptysis. GI: As mentioned earlier. : No dysuria. NERVOUS SYSTEM: No numbness or weakness. ALLERGY/IMMUNOLOGY: No asthma or hayfever. MUSCULOSKELETAL: As mentioned earlier. HEMATOLOGY/ONCOLOGY: No history of anemia, but currently anemic. ENDOCRINE: Diabetes mellitus. CONSTITUTIONAL: As mentioned earlier. DERMATOLOGY: Negative. RHEUMATOLOGY: As mentioned earlier. PSYCHIATRY: As mentioned earlier. PHYSICAL EXAMINATION: The patient is alert and oriented x3. Pulse 77, blood pressure 108/45, respiration 21, temperature 98.2, pulse ox 100% on 2 L. HEENT: Conjunctivae normal. Oral mucosa moist. NECK: No jugular venous distention. No carotid bruit. No lymph node enlargement. CARDIOVASCULAR: S1, S2 muffled. No S3 or S4. RESPIRATORY: Breath sounds diminished at the bases. A few scattered rhonchi and crackles. ABDOMEN: Soft, status post surgery. Minimal ecchymosis present. Otherwise minimal diffuse tenderness. No guarding. No rigidity. No mass palpable. Bowel sounds diminished. LEGS: No edema, no swelling. NERVOUS SYSTEM: Higher functions as mentioned earlier. Moves all 4 limbs. No focal motor or sensory deficits. LYMPHATICS: No lymphadenopathy of the neck, axillae or groin. SKIN: No ulcer, rash or bleeding. JOINTS: No active deforming arthropathy. LABS: WBC 25.7, hemoglobin is 8.7. The baseline WBC was 5.6, otherwise sodium 137, CO2 is 15, creatinine is 2.45, glucose 241. Troponin 0.050. AST 67, ALT is 37. UA noted. ASSESSMENT: 1. Possibly intraperitoneal bleeding with acute blood loss anemia. 2. Recent laparoscopic cholecystectomy. 3. History of recent gallstone pancreatitis. 4. Elevated WBC. 5. Hyponatremia. 6. Acute renal failure with acute tubular necrosis. 7. Chronic kidney disease stage 3. 8. Increased AST, ALT possibly mild hepatitis. 9. Troponin 0.05, indeterminate. 10.Hypoalbuminemia with mild to moderate protein calorie malnutrition. 11.Diabetes mellitus type 2 uncontrolled with hyperglycemia. 12.Gastroesophageal reflux disease. 13.Hypertension. 14.Hyperlipidemia. 15.History of rheumatoid arthritis. 16.History of sleep apnea. 17.History of degenerative joint disease. 18.History of MRSA. 19.History of depression. 20.Obesity with body mass index 43.1. 21.FULL CODE. RECOMMENDATIONS AND DISCUSSION: In this 64-year-old woman who presented with multiple complex medical issues, we will monitor the patient closely. Continue the current medications, continue symptomatic treatment. Otherwise I would recommend continue with broad-spectrum IV antibiotics, follow the cultures. Monitor the blood sugars closely. I would recommend Levemir 25 units and monitor Accu-Cheks a.c. and at bedtime. Patient is on D5 drip at this time with bicarb per Nephrology recommendations. Once the bicarb improves, the D5 drip may be discontinued and otherwise DVT prophylaxis and incentive spirometry. We will follow the patient closely with you. A copy of this dictation forwarded to Dr. Rodriguez, who is the primary physician. Thank you Dr. Calero for letting us participate in the care of this patient. MMODL / IJN: [id number] / NIALL
[2019-10-10] MEDS: PIPERACILLIN-TAZOBACTAM 3.375 GM in SODIUM CHLORIDE 0.9% 100 ML IVPB SCH ×3 (03:57→20:31)
[2019-10-10 04:43] LABS: Albumin 2.3 g/dL (3.5-5.0); Calcium 7.3 mg/dL (8.4-10.2); Potassium 3.8 mmol/L (3.5-5.1); Total Bilirubin 0.8 mg/dL (0.2-1.3); Total Protein 4.7 g/dL (6.3-8.2)
[2019-10-10 05:35] LABS: Basophils # (A) 0.1 k/uL (0-0.2); Basophils % (A) 0 %; Eosinophils # (A) 0.2 k/uL (0-0.7); Eosinophils % (A) 1 %; HCT 24.3 % (34.0-46.0); HGB 7.4 gm/dL (11.4-16.0); Hypochromasia Marked; Lymphocytes # (A) 1.1 k/uL (1.0-4.8); Lymphocytes % (A) 5 %; MCH 30.3 pg (25.0-35.0); MCHC 30.5 g/dL (31.0-37.0); MCV 99.2 fL (80.0-100.0); Macrocytosis Slight; Mean Platelet Volume 8.4; Monocytes # (A) 0.8 k/uL (0-1.0); Monocytes % (A) 4 %; Neutrophils % (A) 89 %; Platelet Count 254 k/uL (150-450); RBC 2.45 m/uL (3.80-5.40); RDW 15.1 % (11.5-15.5); WBC 21.4 k/uL (3.8-10.6)
[2019-10-10] MEDS ORDERED: SODIUM CHLORIDE 0.9% 1,000 ML IV ONE ×2 (05:45→16:10)
[2019-10-10] MEDS ORDERED: INSULIN DETEMIR (LEVEMIR) 100 UNIT/ML SYR SQ SCH (07:00)
[2019-10-10] MEDS: PANTOPRAZOLE 40 MG TABLET PO SCH (07:00)
[2019-10-10 07:20] LABS: Glucose,Whole Blood 180 mg/dL (75-99)
[2019-10-10] MEDS: INSULIN ASPART (NovoLOG) 100 UNIT/ML VIAL SQ SCH ×4 (07:20→20:37)
[2019-10-10] MEDS: INSULIN DETEMIR (LEVEMIR) 100 UNIT/ML SYR SQ SCH (07:20)
[2019-10-10] MEDS: ALBUTEROL NEBULIZED 2.5 MG/3 ML INHALATION SCH ×3 (07:34→20:27)
--- NOTE | 2019-10-10 08:10 | P.PN ---
Subjective Progress Note Date: 10/10/19 CHIEF COMPLAINT: Intra-peritoneal hemorrhage HISTORY OF PRESENT ILLNESS: Alma Vivar is a 64-year-old female with multiple medical comorbidities including morbid obesity, history of sleeve gastrectomy, congestive heart failure, chronic renal insufficiency, previous history of strokes, poorly controlled insulin-dependent diabetes, chronic antiplatelet therapy, and depressive disorder who status post cholecystectomy 10/06/19 during recent hospitalization 09/28 to 10/07/19 for atypical chest pain and gallstone pancreatitis. During that hospitalization, patient was on Plavix, Cymbalta, heparin, and had complete cardiac workup. During surgery she had findings of hepatomegaly and acute cholecystitis. Following surgery, she had improvement in her LFTs following discharge including stable hemoglobin 11.5 up to 11.8. She returned to the hospital for generalized malaise, abdominal pain including poor urine output. She came in with acute blood loss anemia with Hgb 8.4 with hypotension on presentation and was transfused [address] scan had showed intraperitoneal hematoma. She is in the ICU. Hemoglobin dropped from 9.7-7.4. Creatinine continued to elevate. BNP is high with congestive heart failure. She is oliguric. Urine is very dark. She is tolerating a liquid diet. Blood pressure has improved with fluid boluses. Her pain is controlled. REVIEW OF SYSTEMS: No nausea or vomiting. She had a bowel movement. No fevers or chills. PHYSICAL EXAM: VITAL SIGNS: Reviewed GENERAL: Well-developed pleasant female in no acute distress. HEENT: No scleral icterus. Extraocular movements grossly intact. Moist buccal mucosa. CHEST: Unlabored respirations. Equal bilateral excursions. CARDIOVASCULAR: 2+ distal pulses. ABDOMEN: Ecchymosis from heparin shots along lower abdomen. No diffuse peritonitis. Mild tenderness left upper quadrant to be expected. : Dark urine in [place] bag. MUSCULOSKELETAL: No clubbing, cyanosis. NEURO: No focal or lateralizing signs. Cranial nerves 2 through 12 grossly within normal limits. PSYCH: Alert and oriented to person place and time. SKIN: Well perfused. Good skin turgor. LABS: WBC 22.9 to 21.4, Hgb 9.4 to 7.4. Troponins were elevated. ASSESSMENT: 1. Acute blood loss anemia 2. Acute on chronic renal failure with elevated creatinine and oliguria 3. Dehydration 4. Adverse reaction with bleeding from Plavix, Cymbalta, anti-coagulants 5. Pre-existing iron deficiency anemia 6. Congestive cardiomyopathy 7. Insulin-dependent diabetes type 2 8. Morbid obesity 9. Platelet dysfunction with uremia PLAN: 1. She has multifactorial platelet dysfunction including recent Plavix and synergistic effect was Cymbalta and now with acute on chronic renal failure. May benefit from desmopressin one-time dose to counteract platelet dysfunction. 2. Transfuse as needed for symptomatic anemia 3. Await nephrology consult for acute on chronic renal failure 4. Continue ICU care due to persistent anemia with acute on chronic renal failure and history of congestive heart failure 5. Possible cardiology consultation due to elevated troponins which may be exacerbated by acute on chronic renal failure Objective - Vital Signs Vital signs: Vital Signs Temp 98.0 F 10/10/19 04:00 Pulse 73 10/10/19 07:49 Resp 17 10/10/19 04:00 BP 97/45 10/10/19 04:00 Pulse Ox 96 10/10/19 04:00 Intake & Output 10/09/19 10/10/19 10/10/19 18:59 06:59 18:59 Intake Total 1120 900 Output Total 305 165 Balance 815 735 Weight 136.2 kg 138.1 kg Intake: IV 810 900 0.9 10 Dextrose 5% in Water 1, 800 900 000 ml @ 100 mls/hr IV . [id number] EMILIANO with Sodium Bicarb (1 Meq/ml) 150 ml Rx#:[id number] Blood Product 310 Rc As-1 Unit 310 [id number] Output: Urine 305 165 Other: Voiding Method Indwelling Catheter Indwelling Catheter # Bowel Movements 1 - Labs CBC & Chem 7: 10/10/19 04:30 10/10/19 03:50 Labs: Abnormal Lab Results - Last 24 Hours (Table) 10/09/19 10/09/19 10/09/19 Range/Units 08:24 08:24 08:41 WBC 22.9 H (3.8-10.6) k/uL RBC 3.12 L (3.80-5.40) m/uL Hgb 9.4 L (11.4-16.0) gm/dL Hct 31.0 L (34.0-46.0) % MCHC 30.2 L (31.0-37.0) g/dL Neutrophils # (1.3-7.7) k/uL Neutrophils # (Manual) (1.3-7.7) k/uL Monocytes # (Manual) (0-1.0) k/uL Sodium (137-145) mmol/L Carbon Dioxide (22-30) mmol/L BUN (7-17) mg/dL Creatinine (0.52-1.04) mg/dL Glucose (74-99) mg/dL POC Glucose (mg/dL) 280 H (75-99) mg/dL Calcium (8.4-10.2) mg/dL Alkaline Phosphatase (38-126) U/L Total Protein (6.3-8.2) g/dL Albumin (3.5-5.0) g/dL Procalcitonin 17.88 H (0.02-0.09) ng/mL 10/09/19 10/09/19 10/09/19 Range/Units 11:52 16:12 17:34 WBC 25.7 H (3.8-10.6) k/uL RBC 2.86 L (3.80-5.40) m/uL Hgb 8.7 L (11.4-16.0) gm/dL Hct 27.7 L (34.0-46.0) % MCHC (31.0-37.0) g/dL Neutrophils # (1.3-7.7) k/uL Neutrophils # (Manual) 23.30 H (1.3-7.7) k/uL Monocytes # (Manual) 1.54 H (0-1.0) k/uL Sodium (137-145) mmol/L Carbon Dioxide (22-30) mmol/L BUN (7-17) mg/dL Creatinine (0.52-1.04) mg/dL Glucose (74-99) mg/dL POC Glucose (mg/dL) 272 H 304 H (75-99) mg/dL Calcium (8.4-10.2) mg/dL Alkaline Phosphatase (38-126) U/L Total Protein (6.3-8.2) g/dL Albumin (3.5-5.0) g/dL Procalcitonin (0.02-0.09) ng/mL 10/09/19 10/09/19 10/09/19 Range/Units 18:05 20:37 22:34 WBC 20.3 H (3.8-10.6) k/uL RBC 2.61 L (3.80-5.40) m/uL Hgb 7.6 L (11.4-16.0) gm/dL Hct 25.9 L (34.0-46.0) % MCHC 29.5 L (31.0-37.0) g/dL Neutrophils # 18.4 H (1.3-7.7) k/uL Neutrophils # (Manual) (1.3-7.7) k/uL Monocytes # (Manual) (0-1.0) k/uL Sodium 132 L (137-145) mmol/L Carbon Dioxide 21 L (22-30) mmol/L BUN 45 H (7-17) mg/dL Creatinine 2.66 H (0.52-1.04) mg/dL Glucose 268 H (74-99) mg/dL POC Glucose (mg/dL) 297 H (75-99) mg/dL Calcium 7.6 L (8.4-10.2) mg/dL Alkaline Phosphatase (38-126) U/L Total Protein (6.3-8.2) g/dL Albumin (3.5-5.0) g/dL Procalcitonin (0.02-0.09) ng/mL 10/09/19 10/10/19 10/10/19 Range/Units 22:34 03:50 04:30 WBC 21.4 H (3.8-10.6) k/uL RBC 2.45 L (3.80-5.40) m/uL Hgb 7.4 L (11.4-16.0) gm/dL Hct 24.3 L (34.0-46.0) % MCHC 30.5 L (31.0-37.0) g/dL Neutrophils # 19.0 H (1.3-7.7) k/uL Neutrophils # (Manual) (1.3-7.7) k/uL Monocytes # (Manual) (0-1.0) k/uL Sodium 133 L 132 L (137-145) mmol/L Carbon Dioxide 20 L (22-30) mmol/L BUN 45 H 48 H (7-17) mg/dL Creatinine 2.86 H 3.01 H (0.52-1.04) mg/dL Glucose 217 H 151 H (74-99) mg/dL POC Glucose (mg/dL) (75-99) mg/dL Calcium 7.5 L 7.3 L (8.4-10.2) mg/dL Alkaline Phosphatase 213 H (38-126) U/L Total Protein 4.7 L (6.3-8.2) g/dL Albumin 2.3 L (3.5-5.0) g/dL Procalcitonin (0.02-0.09) ng/mL 10/10/19 Range/Units 07:18 WBC (3.8-10.6) k/uL RBC (3.80-5.40) m/uL Hgb (11.4-16.0) gm/dL Hct (34.0-46.0) % MCHC (31.0-37.0) g/dL Neutrophils # (1.3-7.7) k/uL Neutrophils # (Manual) (1.3-7.7) k/uL Monocytes # (Manual) (0-1.0) k/uL Sodium (137-145) mmol/L Carbon Dioxide (22-30) mmol/L BUN (7-17) mg/dL Creatinine (0.52-1.04) mg/dL Glucose (74-99) mg/dL POC Glucose (mg/dL) 180 H (75-99) mg/dL Calcium (8.4-10.2) mg/dL Alkaline Phosphatase (38-126) U/L Total Protein (6.3-8.2) g/dL Albumin (3.5-5.0) g/dL Procalcitonin (0.02-0.09) ng/mL Microbiology - Last 24 Hours (Table) 10/09/19 02:55 Urine Culture - Preliminary Urine,Catheterized Assessment and Plan (1) Acute blood loss anemia Current Visit: Yes Status: Acute Code(s): D62 - ACUTE POSTHEMORRHAGIC ANEMIA SNOMED Code(s): 817590111 (2) Acute on chronic renal failure Current Visit: Yes Status: Acute Code(s): N17.9 - ACUTE KIDNEY FAILURE, UNSPECIFIED; N18.9 - CHRONIC KIDNEY DISEASE, UNSPECIFIED SNOMED Code(s): 432995847 (3) Intraperitoneal hemorrhage Current Visit: Yes Status: Acute Code(s): K66.1 - HEMOPERITONEUM SNOMED Code(s): 150981011 (4) Leukocytosis Current Visit: No Status: Acute Code(s): D72.829 - ELEVATED WHITE BLOOD CELL COUNT, UNSPECIFIED SNOMED Code(s): 264710619 (5) Morbid obesity Current Visit: No Status: Acute Code(s): E66.01 - MORBID (SEVERE) OBESITY DUE TO EXCESS CALORIES SNOMED Code(s): 940407872 (6) Uremia Current Visit: Yes Status: Acute Code(s): N19 - UNSPECIFIED KIDNEY FAILURE SNOMED Code(s): 58756727 (7) Platelet dysfunction Current Visit: Yes Status: Acute Code(s): D69.1 - QUALITATIVE PLATELET DEFECTS SNOMED Code(s): 677857684
[2019-10-10] MEDS: carvediloL 12.5 MG TAB PO SCH ×2 (08:52→17:14)
[2019-10-10] MEDS: amLODIPine 10 MG TAB PO SCH (09:04)
[2019-10-10] MEDS: DEXTROSE 5% IN WATER 1,000 ML with SODIUM BICARB (1 MEQ/ML) 150 ML IV SCH (09:04)
[2019-10-10] MEDS: PREGABALIN 75 MG CAP PO SCH ×2 (09:04→20:37)
[2019-10-10] MEDS: TOPIRAMATE 25 MG TAB PO SCH ×2 (09:07→20:48)
[2019-10-10] MEDS ORDERED: DESMOPRESSIN ACETATE 40 MCG in SODIUM CHLORIDE 0.9% 50 ML IV ONE (09:21)
[2019-10-10] MEDS: SODIUM BICARBONATE TAB 650 MG TAB PO SCH ×2 (10:12→20:37)
[2019-10-10] MEDS: SODIUM CHLORIDE 0.9% 1,000 ML IV SCH (10:14)
[2019-10-10] MEDS: SODIUM FERRIC GLUCONAT-SUCROSE 125 MG in SODIUM CHLORIDE 0.9% 100 ML IVPB SCH (11:20)
--- NOTE | 2019-10-10 12:13 | P.PN ---
Subjective Progress Note Date: 10/10/19 Principal diagnosis: Acute intraperitoneal hemorrhage, status post laparoscopic cholecystectomy postoperative day #5 This is a 64-year-old male patient who presented emergency department because of generalized abdominal pain more so in the left lower quadrant area and addition to generalized weakness. The patient underwent a laparoscopic cholecystectomy and the patient is postop day #4. She was discharged from the hospital and she was asked to follow-up with surgery on outpatient basis. After going home, she was unable to get out of bed. She felt quite weak. She was expressing pain in the abdomen also in the left upper and left lower quadrant area. She is also feeling nauseated. No emesis. No bright red blood per rectum. Appetite was down. Denies having any chest pain. No cough sputum production chest tightness or wheezing. She was having episodes of diarrhea following her discharge.. The incisions over the anterior abdominal wall there are all dry clean and intact. Note that this patient underwent a robotic-assisted cholecystectomy. She has a previous history of gallstone pancreatitis. She had elevated LFTs secondary to gallstone pancreatitis which recovered. Prior to her surgery, the patient had a dilated gallbladder suspicious for gallbladder dysfunction and the MRCP showed no significant dilatation of the common bile duct. In any rate, the patient underwent her surgery and she was discharged home as the patient was doing well using incentive spirometer and she was maintained on antibiotics and she was discharged home on Augmentin to complete a ten-day course. She was afebrile at the time of her discharge. On yesterday's evaluation, her white cell count was 22.9. Hemoglobin was down to 8.7 and her discharge hemoglobin was 11.8. Her preop hemoglobin was as high as 13.6. She also has stage III kidney disease related diabetes mellitus. The patient creatinine is higher than the based on his up to 2.7. She also developed a non-anion gap metabolic acidosis. The CAT scan of the abdomen and pelvis was done in the emergency department without contrast and showed post cholecystectomy changes and there was high attenuation areas in the right upper quadrant and the pelvis Dr. and around the spleen. This was consistent with acute on chronic hematoma. Bile leak could not be completely excluded based on this study. There was some density fluid in the pelvis and was extending to the cul-de-sac measuring up to 6 cm in size. The patient was given a total of 2 units of packed RBC. Hemoglobin improved. Today I switch her to a bicarb infusion. She is afebrile. Patient was reevaluated today on 10/10/19, patient remains in the ICU, received a total of 2 units of packed RBCs since admission. Patient is on 2 L nasal ca nnula and her O2 saturations 94%. She was on IV bicarb and I switch her today to oral bicarb because of her acute on chronic renal failure. Patient is being followed closely by surgery, she was given a dose of desmopressin today. She seems to be hemodynamically stable. Hemoglobin today is 7.4. Electrolytes are normal and bicarb is normal her BUN is 48 creatinine is 3.01. IV fluids at 75 mL per hour. All labs were reviewed and she clearly has worsening renal picture however she is being followed by nephrology. Seen by surgery today, and the feeling that the patient had postoperative bleeding exacerbated by the fact that the patient was on Plavix Cymbalta and anticoagulation treatment. She does have history of pre-existing iron deficiency anemia and she does have a pre-existing platelet dysfunction with uremia. At this point the patient is hemodynamically stable, in no distress, and she is being transferred to a monitor bed on selective S1 as a bed becomes available. Objective - Vital Signs Vital signs: Vital Signs Temp 98.2 F 10/10/19 08:00 Pulse 88 10/10/19 11:39 Resp 15 10/10/19 08:00 BP 104/50 10/10/19 08:00 Pulse Ox 96 10/10/19 08:00 Intake & Output 10/09/19 10/10/19 10/10/19 18:59 06:59 18:59 Intake Total 1120 900 300 Output Total 305 165 90 Balance 815 735 210 Weight 136.2 kg 138.1 kg Intake: IV 810 900 300 0.9 10 Dextrose 5% in Water 1, 800 900 300 000 ml @ 100 mls/hr IV . [id number] EMILIANO with Sodium Bicarb (1 Meq/ml) 150 ml Rx#:[id number] Blood Product 310 Rc As-1 Unit 310 [id number] Output: Urine 305 165 90 Other: Voiding Method Indwelling Catheter Indwelling Catheter Indwelling Catheter # Bowel Movements 1 - Exam Physical Exam Physical exam revealed a 4-year-old female in no distress. Pleasant, on 2 L nasal cannula. O2 sat is 92%. Head: Atraumatic, normocephalic. HEENT:[Neck is supple.] [No neck masses.] [No thyromegaly.] [No JVD.] Chest: [Clear throughout, no crackles, no rhonchi, no wheezes.] Cardiac Exam: [Normal S1 and S2, no S3 gallop, no murmur.] Abdomen: Ecchymosis from heparin shots along lower abdomen. No diffuse peritonitis. Mild tenderness left upper quadrant to be expected Extremities: [No clubbing, no edema, no cyanosis.] Neurological Exam: [No focal neurologic deficit.] Alert and oriented 3. Psychiatric: Normal mood affect and normal mental status examination. Musculoskeletal: No deformities, no limitation in range of motion. - Labs CBC & Chem 7: 10/10/19 04:30 10/10/19 03:50 Labs: Abnormal Lab Results - Last 24 Hours (Table) 10/09/19 10/09/19 10/09/19 Range/Units 08:24 16:12 17:34 WBC 25.7 H (3.8-10.6) k/uL RBC 2.86 L (3.80-5.40) m/uL Hgb 8.7 L (11.4-16.0) gm/dL Hct 27.7 L (34.0-46.0) % MCHC (31.0-37.0) g/dL Neutrophils # (1.3-7.7) k/uL Neutrophils # (Manual) 23.30 H (1.3-7.7) k/uL Monocytes # (Manual) 1.54 H (0-1.0) k/uL Sodium (137-145) mmol/L Carbon Dioxide (22-30) mmol/L BUN (7-17) mg/dL Creatinine (0.52-1.04) mg/dL Glucose (74-99) mg/dL POC Glucose (mg/dL) 304 H (75-99) mg/dL Calcium (8.4-10.2) mg/dL Alkaline Phosphatase (38-126) U/L Total Protein (6.3-8.2) g/dL Albumin (3.5-5.0) g/dL Procalcitonin 17.88 H (0.02-0.09) ng/mL 10/09/19 10/09/19 10/09/19 Range/Units 18:05 20:37 22:34 WBC 20.3 H (3.8-10.6) k/uL RBC 2.61 L (3.80-5.40) m/uL Hgb 7.6 L (11.4-16.0) gm/dL Hct 25.9 L (34.0-46.0) % MCHC 29.5 L (31.0-37.0) g/dL Neutrophils # 18.4 H (1.3-7.7) k/uL Neutrophils # (Manual) (1.3-7.7) k/uL Monocytes # (Manual) (0-1.0) k/uL Sodium 132 L (137-145) mmol/L Carbon Dioxide 21 L (22-30) mmol/L BUN 45 H (7-17) mg/dL Creatinine 2.66 H (0.52-1.04) mg/dL Glucose 268 H (74-99) mg/dL POC Glucose (mg/dL) 297 H (75-99) mg/dL Calcium 7.6 L (8.4-10.2) mg/dL Alkaline Phosphatase (38-126) U/L Total Protein (6.3-8.2) g/dL Albumin (3.5-5.0) g/dL Procalcitonin (0.02-0.09) ng/mL 10/09/19 10/10/19 10/10/19 Range/Units 22:34 03:50 04:30 WBC 21.4 H (3.8-10.6) k/uL RBC 2.45 L (3.80-5.40) m/uL Hgb 7.4 L (11.4-16.0) gm/dL Hct 24.3 L (34.0-46.0) % MCHC 30.5 L (31.0-37.0) g/dL Neutrophils # 19.0 H (1.3-7.7) k/uL Neutrophils # (Manual) (1.3-7.7) k/uL Monocytes # (Manual) (0-1.0) k/uL Sodium 133 L 132 L (137-145) mmol/L Carbon Dioxide 20 L (22-30) mmol/L BUN 45 H 48 H (7-17) mg/dL Creatinine 2.86 H 3.01 H (0.52-1.04) mg/dL Glucose 217 H 151 H (74-99) mg/dL POC Glucose (mg/dL) (75-99) mg/dL Calcium 7.5 L 7.3 L (8.4-10.2) mg/dL Alkaline Phosphatase 213 H (38-126) U/L Total Protein 4.7 L (6.3-8.2) g/dL Albumin 2.3 L (3.5-5.0) g/dL Procalcitonin (0.02-0.09) ng/mL 10/10/19 Range/Units 07:18 WBC (3.8-10.6) k/uL RBC (3.80-5.40) m/uL Hgb (11.4-16.0) gm/dL Hct (34.0-46.0) % MCHC (31.0-37.0) g/dL Neutrophils # (1.3-7.7) k/uL Neutrophils # (Manual) (1.3-7.7) k/uL Monocytes # (Manual) (0-1.0) k/uL Sodium (137-145) mmol/L Carbon Dioxide (22-30) mmol/L BUN (7-17) mg/dL Creatinine (0.52-1.04) mg/dL Glucose (74-99) mg/dL POC Glucose (mg/dL) 180 H (75-99) mg/dL Calcium (8.4-10.2) mg/dL Alkaline Phosphatase (38-126) U/L Total Protein (6.3-8.2) g/dL Albumin (3.5-5.0) g/dL Procalcitonin (0.02-0.09) ng/mL Microbiology - Last 24 Hours (Table) 10/09/19 02:55 Urine Culture - Preliminary Urine,Catheterized Assessment and Plan Assessment: Impression: Intraperitoneal hemorrhage post cholecystectomy, postoperative day #5. Post cholecystectomy, postoperative day #5. Acute blood loss anemia in addition to history of chronic anemia secondary to chronic renal failure. Non-anion gap metabolic acidosis likely secondary to diarrhea. Acute on chronic kidney disease stage III possibly related to intravascular volume depletion and dehydration and blood loss. History of gallstone pancreatitis, status post cholecystectomy. Obesity with BMI of 43.1. History of CVA and left-sided weakness, resolved. Benign essential hypertension Type 2 diabetes with diabetic nephropathy is suspected. History of rheumatoid arthritis. History of stage II coccygeal wound Previous history of gastric sleeve 4 morbid obesity and subsequent weight loss. Recommendation: Continue to monitor hemoglobin daily and transfuse for hemoglobin below 7. Agree with testing the patient out of the ICU to a monitor bed on selective. Discontinue IV bicarbonate and start the patient on oral bicarb. Nephrology to evaluate her renal status. Continue insulin as per scale/sliding scale coverage. We'll continue to follow. Time with Patient: Less than 30
[2019-10-10 12:18] LABS: Glucose,Whole Blood 200 mg/dL (75-99)
--- NOTE | 2019-10-10 15:40 | PN ---
PROGRESS NOTE DATE OF SERVICE: 10/10/2019 This is a 64-year-old woman who was admitted with intraperitoneal bleeding, is mildly confused also. The patient had a recent laparoscopic cholecystectomy, the patient will be closely monitored. Hemoglobin is at 7.4 today. The patient received 2 units of transfusions. The patient will be closely monitored. The blood sugars are significantly better today, running at 182/100. Patient is monitored in ICU. The creatinine has worsened today to 3.01. PAST MEDICAL HISTORY: Reviewed. REVIEW OF SYSTEMS: CARDIOVASCULAR SYSTEM: No angina or palpitation. RESPIRATION: As mentioned earlier. GI: As mentioned earlier. : No dysuria. NERVOUS SYSTEM: No numbness or weakness. CURRENT MEDICATIONS: Reviewed include: 1. Ventolin. 2. Norvasc. 3. Coreg. 4. Dilaudid. 5. NovoLog. 6. Levemir. 7. Narcan. 8. Protonix. 9. Zosyn. 10.Topamax. PHYSICAL EXAM: Patient is alert, oriented x3. Pulse is 76, blood pressure 105/50, respiration 16, temperature 98.2, pulse ox 98% on 2 L. HEENT: Conjunctivae normal, oral mucosa moist. NECK: No jugular venous distention. No lymph node enlargement. CARDIOVASCULAR: S1, S2, muffled. RESPIRATION: Breath sounds diminished at the bases, a few scattered rhonchi, no crackles. ABDOMEN: Soft, obese, mild distention. Mild diffuse tenderness. No guarding. No rigidity. A superficial ecchymosis present from the laparoscopic site. No active bleeding noted. No ascites. Bowel sounds present. LEGS: No edema, no swelling. NERVOUS SYSTEM: Higher systems as mentioned earlier. Moves all 4 limbs. No focal motor deficits. LYMPHATICS: No lymph node enlargement in neck or axillae. SKIN: No ulcer, no rashes. JOINTS: No active deformity. LABS: WBC 21.2, hemoglobin 7.4. ASSESSMENT: 1. Possible intraperitoneal bleeding with acute blood loss anemia, status post 2 units transfusion. 2. Recent laparoscopic cholecystectomy. 3. Acute renal failure, possible acute tubular necrosis with prerenal factors. 4. Chronic kidney disease stage 3 baseline. 5. History of recent gallstone pancreatitis. 6. Elevated WBC. 7. Hyponatremia. 8. Increased AST, ALT possibly mild hepatitis. 9. Troponin 0.05, indeterminate. 10.Hypoalbuminemia with mild to moderate protein calorie malnutrition. 11.Diabetes mellitus type 2, uncontrolled with hyperglycemia. 12.Gastroesophageal reflux disease. 13.Hypertension. 14.Hyperlipidemia. 15.History of rheumatoid arthritis. 16.History of sleep apnea. 17.History of DJD. 18.History of MRSA. 19.History of depression. 20.Obesity with body mass of 43.1. 21.FULL CODE. RECOMMENDATION: Recommend to continue current management, continue symptomatic treatment. Patient is on clear liquids. I recommend to continue to monitor. Recommend to continue with empiric antibiotics and cultures are negative so far. Repeat labs. Closely follow with multiple consultants including Surgery and as well as Pulmonary Critical Care. Prognosis guarded because of multiple complex medical issues. Further recommendations to follow. MMODL / IJN: [id number] /
[2019-10-10 16:49] LABS: Glucose,Whole Blood 206 mg/dL (75-99)
--- NOTE | 2019-10-10 19:02 | CONS ---
CONSULTATION REASON FOR CONSULT: Renal failure. HISTORY OF PRESENT ILLNESS: Patient is a 64-year-old female who was admitted to the hospital with complaints of abdominal pain 3 days after having had a cholecystectomy. The patient was found to have intraperitoneal hemorrhage on the abdominal CT. Her hemoglobin was 8.7, decreased to about 7.6. However, patient did receive 2 units packed RBCs. Currently it is staying at about 7.4 g/dL. Patient's serum creatinine was 2.45 on initial admission. It is up to 3.01 now. Patient does have a history of chronic kidney disease, NKF stage 3, with previous creatinine about 1.0 to 1.2 mg/dL secondary to nephrosclerosis and diabetic kidney disease. The patient has had previous episode of acute kidney injury during hospitalization. The patient's blood pressure had been on the lower side with systolic around 108 to 97 mmHg, mostly today. However, no significant blood pressure readings below 100 mmHg on 10/08 and 10/08/2019. The CT scan done on 10/08/2019 was without IV contrast. At home, patient was maintained on OLAYINKA inhibitors. She was not on any nonsteroidal anti- inflammatory agents. Patient did receive IV fluids on initial admission. Urine output had been low and decreased to only about 10 to 15 mL/hour. A liter of fluid bolus was given and urine output has picked up to about 75 mL last hour. Patient's blood pressure is currently not significantly low. She did get a dose of DDAVP to help with the bleeding as well. No other sites of bleeding noted at this time. No GI bleed. The patient is n.p.o. OLAYINKA inhibitors are on hold. PAST MEDICAL HISTORY: CVA, TIA, type 2 diabetes, gastroesophageal reflux disease, hypertension, hyperlipidemia, rheumatoid arthritis, CKD stage 3, cataracts. PAST SURGICAL HISTORY: Breast biopsy, gastric sleeve procedure, colonoscopy, bilateral cataract surgery. SOCIAL HISTORY: Negative for smoking, drug abuse or alcohol abuse. MEDICATIONS: Medications prior to admission included Cymbalta, calcitriol, iron, Topamax, Lipitor, aspirin, Coreg, insulin, Zestril, NovoLog, Norvasc Protonix, Augmentin. ALLERGIES: NONE. PHYSICAL EXAMINATION: Patient is currently comfortable, awake. She is not in any acute distress. She is sleepy but easily arousable. Blood pressure was 117/47, heart rate 86 per minute. Patient is afebrile. EXAMINATION OF THE HEART: S1 and S2. EXAMINATION OF LUNGS: Bilateral breath sounds are heard. ABDOMEN: Soft, non-tender. Examination of lower extremities shows chronic skin changes. No significant edema is noted. [employer] exam is grossly intact. LABS: Labs show sodium of 132, potassium 3.8, chloride 100. CO2 is 23, BUN 48, creatinine 3.01 hemoglobin 7.4 g/dL. ASSESSMENT: 1. Acute kidney injury, acute tubular necrosis, associated with acute anemia as well as some degree of hypotension and hypovolemia. I will continue with the IV fluids. Repeat another liter of bolus if urine output drops. The patient is not on any nephrotoxic medications. 2. Anemia with acute drop in hemoglobin secondary to intraperitoneal hemorrhage, currently stable. The patient received a dose of DDAVP this morning secondary to impaired renal function. This is appropriate, given the drop in the hemoglobin again today. She is also receiving IV iron. 3. Status post cholecystectomy about 5 days ago. 4. Chronic kidney disease, stage 3. Baseline creatinine about 1 to 1.2 mg/dL secondary to nephrosclerosis and diabetic kidney disease. 5. Non-gap metabolic acidosis, status post bicarb drip, currently improved, maintained on oral bicarb now. 6. History of hypertension. Continue to hold off on antihypertensive medications at this point. 7. History of cerebrovascular accident with some residual left-sided weakness. 8. Rheumatoid arthritis. PLAN: Continue to monitor hemoglobin. Repeat a liter of fluid bolus. Increase normal saline down to 125 mL/hour. Continue to avoid nephrotoxic medications. Thank you for this consultation. Will continue to follow the patient with you during his hospitalization. MMODL / IJN: [id number] /
[2019-10-10 20:29] LABS: Glucose,Whole Blood 169 mg/dL (75-99)
[2019-10-11] MEDS: SODIUM CHLORIDE 0.9% 1,000 ML IV SCH ×3 (00:15→17:42)
[2019-10-11] MEDS: HYDROmorphone 0.5 MG/0.5 ML SYRINGE IVP PRN ×5 (01:23→21:29)
[2019-10-11 03:53] LABS: Glucose,Whole Blood 51 mg/dL (75-99)
[2019-10-11 04:10] LABS: Glucose,Whole Blood 66 mg/dL (75-99)
[2019-10-11] MEDS: PIPERACILLIN-TAZOBACTAM 3.375 GM in SODIUM CHLORIDE 0.9% 100 ML IVPB SCH ×3 (04:10→21:28)
[2019-10-11] MEDS ORDERED: DEXTROSE 50% SYRINGE 50 ML IVP ONE (04:13)
[2019-10-11] MEDS ORDERED: DEXTROSE 50% SYRINGE 50 ML IVP STA (04:14)
[2019-10-11 04:32] LABS: Glucose,Whole Blood 197 mg/dL (75-99)
[2019-10-11 05:05] LABS: Albumin 2.6 g/dL (3.5-5.0); Calcium 7.2 mg/dL (8.4-10.2); Potassium 3.5 mmol/L (3.5-5.1); Total Bilirubin 0.9 mg/dL (0.2-1.3); Total Protein 5.2 g/dL (6.3-8.2)
[2019-10-11 05:29] LABS: Basophils % (A) 0 %; Eosinophils # (A) 0.3 k/uL (0-0.7); Eosinophils % (A) 2 %; HCT 21.9 % (34.0-46.0); Hypochromasia Moderate; Lymphocytes # (A) 0.7 k/uL (1.0-4.8); Lymphocytes % (A) 4 %; MCH 30.8 pg (25.0-35.0); MCHC 31.2 g/dL (31.0-37.0); MCV 98.7 fL (80.0-100.0); Macrocytosis Slight; Mean Platelet Volume 8.4; Monocytes # (A) 0.6 k/uL (0-1.0); Monocytes % (A) 4 %; Neutrophils # (A) 14.1 k/uL (1.3-7.7); Neutrophils % (A) 89 %; Platelet Count 271 k/uL (150-450); RBC 2.22 m/uL (3.80-5.40); WBC 15.9 k/uL (3.8-10.6)
[2019-10-11 05:41] LABS: HGB 6.8 gm/dL (11.4-16.0)
[2019-10-11] MEDS ORDERED: Potassium Replacement Protocol 1 EACH MISC MISCELLANE PRN (06:43)
[2019-10-11 07:01] LABS: Glucose,Whole Blood 187 mg/dL (75-99)
[2019-10-11] MEDS: POTASSIUM CHLORIDE ER 20 MEQ TAB.ER PO SCH ×2 (07:02→09:03)
[2019-10-11] MEDS: INSULIN DETEMIR (LEVEMIR) 100 UNIT/ML SYR SQ SCH (07:03)
[2019-10-11] MEDS: INSULIN ASPART (NovoLOG) 100 UNIT/ML VIAL SQ SCH ×4 (07:03→22:58)
[2019-10-11] MEDS: carvediloL 12.5 MG TAB PO SCH ×2 (07:03→17:42)
[2019-10-11] MEDS: PANTOPRAZOLE 40 MG TABLET PO SCH (07:03)
--- NOTE | 2019-10-11 08:27 | XR ---
EXAMINATION TYPE: XR chest 1V DATE OF EXAM: 10/11/2019 CLINICAL HISTORY: Difficulty breathing progress study. TECHNIQUE: Single AP portable upright view of the chest is obtained. COMPARISON: Chest x-ray from 2 days earlier. CTA chest September 29, 2019. FINDINGS: Low lung volumes and bibasilar opacities remain present. Cardiac silhouette size is stable and upper limits of normal. Osseous structures are intact. IMPRESSION: Low lung volumes and patchy bibasilar acute atelectasis and/or infiltrate redemonstrated . No significant change from most recent x-ray.
[2019-10-11] MEDS: PREGABALIN 75 MG CAP PO SCH ×2 (09:03→21:30)
[2019-10-11] MEDS: SODIUM BICARBONATE TAB 650 MG TAB PO SCH ×2 (09:03→21:30)
[2019-10-11] MEDS: amLODIPine 10 MG TAB PO SCH (09:04)
[2019-10-11] MEDS: TOPIRAMATE 25 MG TAB PO SCH ×2 (09:35→21:30)
[2019-10-11] MEDS: ALBUTEROL NEBULIZED 2.5 MG/3 ML INHALATION SCH ×3 (09:44→19:49)
--- NOTE | 2019-10-11 09:53 | CONS ---
CONSULTATION Alma Vivar is a 64-year-old lady with a history of hypertension, type 2 diabetes, and hypercholesterolemia. She was evaluated prior to an elective laparoscopic cholecystectomy by echo and stress test. Echo revealed a normal systolic function and the stress test which was a Lexiscan stress test did not reveal ischemia. She had her surgery uneventfully, was discharged but comes in the next day with abdominal pain and comes in with abdominal discomfort, was found to have an intraperitoneal hemorrhage based on a CAT scan. However, she seems to continue to bleed. She received 2 units of blood and hemoglobin is down to 6.8 and she is getting additional packed RBCs today. Her main pain is in the left upper quadrant of the abdomen and CAT scan suggests extensive intraperitoneal bleeding, both acute and chronic. I was asked to see her for possible congestive heart failure and an elevated troponin. Her elevated troponin does not reflect any significant myocardial injury, only one value is available and this was performed when she came in at and the value was about 0.05 on arrival on 10/07 at about 10 pm. She is resting comfortably. Complains of left upper quadrant pain. Has no chest pain or shortness of breath. She seems to be relatively comfortable. Her potassium is 3.5. This is being supplemented. Her creatinine was up to 2.45 and as October 06, her creatinine was 1.13. It is possible that she may have had some underlying renal failure to begin with and there is also an acute on chronic renal failure component with some acute kidney injury as a possibility. However, she is not in any distress. Does not appear to have any chest discomfort. I will perform a repeat echocardiogram today and an EKG performed 48 hours ago revealed a sinus rhythm with sinus tachycardia and leftward axis but no acute changes were noted. PAST MEDICAL HISTORY: 1. Hypertension. 2. Type 2 diabetes with mild chronic kidney disease. 3. History of lap choly on 10/06/2019. EXAMINATION: Blood pressure is 100/60, pulse rate is 80 per minute, regular. HEENT: Unremarkable. Fundus was not examined by me. Neck is supple. No JVD. I do not hear a carotid bruit. Heart exam reveals S1, S2 heard normally. Lungs reveal diminished air entry both bases. Abdomen is soft. There is some left upper quadrant tenderness. Lungs reveal diminished air entry. Lower extremities reveal diminished pulses. Central nervous system grossly no focal deficits. IMPRESSION: 1. No clinical evidence of congestive heart failure. 2. Elevated troponin does not represent a myocardial injury. 3. Intraperitoneal bleed following a lap choly. 4. Abnormal troponin does not suggest myocardial injury. 5. Type 2 diabetes with CKD, which has worsened with some acute kidney injury component as well. 6. Hypertension. RECOMMENDATION: I am recommending that we will repeat echo, supplement potassium. Agree with blood transfusion. No other aggressive intervention is necessary and I will request any further input from Nephrology as well. No aggressive intervention from a cardiac standpoint. Patient had a normal LV function and a negative Lexiscan stress test prior to her elective surgery. Thank you very much for the consult. MMODL / IJN: [id number] /
--- NOTE | 2019-10-11 10:26 | P.PN ---
Subjective Patient seen in follow-up for acute kidney injury on chronic kidney disease. Renal function is improving. Nonoliguric. Hemoglobin 6.8 and she is currently receiving a unit of blood. No active bleeding noted. Oral intake is gradually improving. She is maintained on IV fluids. Vital signs are stable. General: The patient appeared well nourished and normally developed. HEENT: Head exam is unremarkable. Neck is without jugular venous distension. LUNGS: Breath sounds decreased. HEART: Rate and Rhythm are regular. ABDOMEN: Soft, nontender. Obese. EXTREMITITES: 1+ edema. Chronic changes noted. Objective - Vital Signs Vital signs: Vital Signs Temp 98.2 F 10/11/19 09:33 Pulse 73 10/11/19 09:57 Resp 15 10/11/19 09:33 BP 135/79 10/11/19 09:33 Pulse Ox 99 10/11/19 09:33 Intake & Output 10/10/19 10/11/19 10/11/19 18:59 06:59 18:59 Intake Total 1230 775 300 Output Total 235 385 250 Balance 995 390 50 Weight 143.4 kg Intake: IV 750 775 300 0.9 450 675 300 Dextrose 5% in Water 1, 300 000 ml @ 100 mls/hr IV . [id number] EMILIANO with Sodium Bicarb (1 Meq/ml) 150 ml Rx#:[id number] Piperacillin-Tazobactam 3 100 .375 gm In Sodium Chloride 0.9% 100 ml @ 25 mls/hr IVPB Q8H EMILIANO Rx#: [id number] Oral 480 Blood Product 0 Rc As-1 Unit 0 [id number] Output: Urine 235 385 250 Other: Voiding Method Indwelling Catheter Indwelling Catheter Indwelling Catheter - Labs CBC & Chem 7: 10/11/19 04:02 10/11/19 04:02 Labs: Abnormal Lab Results - Last 24 Hours (Table) 10/09/19 10/10/19 10/10/19 Range/Units 00:06 12:16 16:48 WBC (3.8-10.6) k/uL RBC (3.80-5.40) m/uL Hgb (11.4-16.0) gm/dL Hct (34.0-46.0) % Neutrophils # (1.3-7.7) k/uL Lymphocytes # (1.0-4.8) k/uL Sodium (137-145) mmol/L BUN (7-17) mg/dL Creatinine (0.52-1.04) mg/dL Glucose (74-99) mg/dL POC Glucose (mg/dL) 200 H 206 H (75-99) mg/dL Calcium (8.4-10.2) mg/dL Alkaline Phosphatase (38-126) U/L Total Protein (6.3-8.2) g/dL Albumin (3.5-5.0) g/dL Crossmatch See Detail 10/10/19 10/11/19 10/11/19 Range/Units 20:27 03:52 04:02 WBC (3.8-10.6) k/uL RBC (3.80-5.40) m/uL Hgb (11.4-16.0) gm/dL Hct (34.0-46.0) % Neutrophils # (1.3-7.7) k/uL Lymphocytes # (1.0-4.8) k/uL Sodium 133 L (137-145) mmol/L BUN 47 H (7-17) mg/dL Creatinine 2.06 H (0.52-1.04) mg/dL Glucose 41 L* (74-99) mg/dL POC Glucose (mg/dL) 169 H 51 L (75-99) mg/dL Calcium 7.2 L (8.4-10.2) mg/dL Alkaline Phosphatase 227 H (38-126) U/L Total Protein 5.2 L (6.3-8.2) g/dL Albumin 2.6 L (3.5-5.0) g/dL Crossmatch 10/11/19 10/11/19 10/11/19 Range/Units 04:02 04:08 04:31 WBC 15.9 H (3.8-10.6) k/uL RBC 2.22 L (3.80-5.40) m/uL Hgb 6.8 L* (11.4-16.0) gm/dL Hct 21.9 L (34.0-46.0) % Neutrophils # 14.1 H (1.3-7.7) k/uL Lymphocytes # 0.7 L (1.0-4.8) k/uL Sodium (137-145) mmol/L BUN (7-17) mg/dL Creatinine (0.52-1.04) mg/dL Glucose (74-99) mg/dL POC Glucose (mg/dL) 66 L 197 H (75-99) mg/dL Calcium (8.4-10.2) mg/dL Alkaline Phosphatase (38-126) U/L Total Protein (6.3-8.2) g/dL Albumin (3.5-5.0) g/dL Crossmatch 10/11/19 Range/Units 07:00 WBC (3.8-10.6) k/uL RBC (3.80-5.40) m/uL Hgb (11.4-16.0) gm/dL Hct (34.0-46.0) % Neutrophils # (1.3-7.7) k/uL Lymphocytes # (1.0-4.8) k/uL Sodium (137-145) mmol/L BUN (7-17) mg/dL Creatinine (0.52-1.04) mg/dL Glucose (74-99) mg/dL POC Glucose (mg/dL) 187 H (75-99) mg/dL Calcium (8.4-10.2) mg/dL Alkaline Phosphatase (38-126) U/L Total Protein (6.3-8.2) g/dL Albumin (3.5-5.0) g/dL Crossmatch Microbiology - Last 24 Hours (Table) 10/09/19 22:34 Blood Culture - Preliminary Blood No Growth after 24 hours 10/09/19 02:55 Urine Culture - Final Urine,Catheterized Assessment and Plan Plan: Assessment: 1. Acute kidney injury secondary to ATN secondary to acute blood loss anemia and hypotension. Renal function improving. Creatinine 2 today. 2. Chronic kidney disease stage III. Baseline creatinine in the range of 1-1.2 secondary to nephrosclerosis and diabetic kidney disease. 3. Acute blood loss anemia secondary to intraperitoneal hemorrhage. Status post DDAVP. Currently receiving a blood transfusion. Also maintained on IV iron. 4. Status post cholecystectomy on October 05. 5. Metabolic acidosis secondary to acute kidney injury maintained on oral sodium bicarbonate. Plan: I will decrease the rate of normal saline to 80 mL an hour. Add Aranesp. Potassium replaced this morning. Continue to monitor renal function and urine output.
[2019-10-11] MEDS ORDERED: DARBEPOETIN ALFA 40 MCG/0.4 ML SYRINGE SQ SCH (10:30)
[2019-10-11] MEDS: SODIUM FERRIC GLUCONAT-SUCROSE 125 MG in SODIUM CHLORIDE 0.9% 100 ML IVPB SCH (11:05)
--- NOTE | 2019-10-11 11:23 | P.PN ---
Subjective Progress Note Date: 10/11/19 Principal diagnosis: Acute intraperitoneal hemorrhage, status post laparoscopic cholecystectomy postoperative day #6 This is a 64-year-old male patient who presented emergency department because of generalized abdominal pain more so in the left lower quadrant area and addition to generalized weakness. The patient underwent a laparoscopic cholecystectomy and the patient is postop day #4. She was discharged from the hospital and she was asked to follow-up with surgery on outpatient basis. After going home, she was unable to get out of bed. She felt quite weak. She was expressing pain in the abdomen also in the left upper and left lower quadrant area. She is also feeling nauseated. No emesis. No bright red blood per rectum. Appetite was down. Denies having any chest pain. No cough sputum production chest tightness or wheezing. She was having episodes of diarrhea following her discharge.. The incisions over the anterior abdominal wall there are all dry clean and intact. Note that this patient underwent a robotic-assisted cholecystectomy. She has a previous history of gallstone pancreatitis. She had elevated LFTs secondary to gallstone pancreatitis which recovered. Prior to her surgery, the patient had a dilated gallbladder suspicious for gallbladder dysfunction and the MRCP showed no significant dilatation of the common bile duct. In any rate, the patient underwent her surgery and she was discharged home as the patient was doing well using incentive spirometer and she was maintained on antibiotics and she was discharged home on Augmentin to complete a ten-day course. She was afebrile at the time of her discharge. On yesterday's evaluation, her white cell count was 22.9. Hemoglobin was down to 8.7 and her discharge hemoglobin was 11.8. Her preop hemoglobin was as high as 13.6. She also has stage III kidney disease related diabetes mellitus. The patient creatinine is higher than the based on his up to 2.7. She also developed a non-anion gap metabolic acidosis. The CAT scan of the abdomen and pelvis was done in the emergency department without contrast and showed post cholecystectomy changes and there was high attenuation areas in the right upper quadrant and the pelvis Dr. and around the spleen. This was consistent with acute on chronic hematoma. Bile leak could not be completely excluded based on this study. There was some density fluid in the pelvis and was extending to the cul-de-sac measuring up to 6 cm in size. The patient was given a total of 2 units of packed RBC. Hemoglobin improved. Today I switch her to a bicarb infusion. She is afebrile. Patient was reevaluated today on 10/10/19, patient remains in the ICU, received a total of 2 units of packed RBCs since admission. Patient is on 2 L nasal ca nnula and her O2 saturations 94%. She was on IV bicarb and I switch her today to oral bicarb because of her acute on chronic renal failure. Patient is being followed closely by surgery, she was given a dose of desmopressin today. She seems to be hemodynamically stable. Hemoglobin today is 7.4. Electrolytes are normal and bicarb is normal her BUN is 48 creatinine is 3.01. IV fluids at 75 mL per hour. All labs were reviewed and she clearly has worsening renal picture however she is being followed by nephrology. Seen by surgery today, and the feeling that the patient had postoperative bleeding exacerbated by the fact that the patient was on Plavix Cymbalta and anticoagulation treatment. She does have history of pre-existing iron deficiency anemia and she does have a pre-existing platelet dysfunction with uremia. At this point the patient is hemodynamically stable, in no distress, and she is being transferred to a monitor bed on selective S1 as a bed becomes available. Patient was reevaluated today on 10/11/19, patient had intraperitoneal hemorrhage, being conservatively treated by general surgery on the case. Continues to have drop in her hemoglobin. Patient received a total of 3 units of packed RBCs, and her hemoglobin today is 6.8. She has some vague abdominal discomfort she is saturating at 98% using 1 L of oxygen. Her IV fluids remains at 1 25 mL per hour. Renal functioning is improving. Nephrology is following for her renal failure. Patient is presently overflow for selective. Echocardiogram showed good ejection fraction. She had slightly elevated troponins. Overall the patient is still hemodynamically stable, and no plans from surgical perspective to take the patient for exploratory laparotomy. Planning to continue conservatively. And I plan to transfer the patient to selective once a bed becomes available. In the meantime she'll receive a unit of packed RBCs today for hemoglobin of 6.8. Objective - Vital Signs Vital signs: Vital Signs Temp 98.2 F 10/11/19 10:31 Pulse 71 10/11/19 10:31 Resp 18 10/11/19 10:31 BP 138/58 09/01/20 10:31 Pulse Ox 94 L 10/11/19 10:31 Intake & Output 10/10/19 10/11/19 10/11/19 18:59 06:59 18:59 Intake Total 1230 775 610 Output Total 235 385 250 Balance 995 390 360 Weight 143.4 kg Intake: IV 750 775 300 0.9 450 675 300 Dextrose 5% in Water 1, 300 000 ml @ 100 mls/hr IV . [id number] EMILIANO with Sodium Bicarb (1 Meq/ml) 150 ml Rx#:[id number] Piperacillin-Tazobactam 3 100 .375 gm In Sodium Chloride 0.9% 100 ml @ 25 mls/hr IVPB Q8H EMILIANO Rx#: [id number] Oral 480 Blood Product 310 Rc As-1 Unit 310 [id number] Output: Urine 235 385 250 Other: Voiding Method Indwelling Catheter Indwelling Catheter Indwelling Catheter - Exam Physical Exam Physical exam revealed a 4-year-old female in no distress. Pleasant, on 2 L nasal cannula. 98% on 1 L. Head: Atraumatic, normocephalic. HEENT:[Neck is supple.] [No neck masses.] [No thyromegaly.] [No JVD.] Chest: [Clear throughout, no crackles, no rhonchi, no wheezes.] Cardiac Exam: [Normal S1 and S2, no S3 gallop, no murmur.] Abdomen: Ecchymosis from heparin shots along lower abdomen. No diffuse peritonitis. Mild tenderness left upper quadrant to be expected Extremities: [No clubbing, trace of bipedal edema, no cyanosis.] Neurological Exam: [No focal neurologic deficit.] Alert and oriented 3. Psychiatric: Normal mood affect and normal mental status examination. Musculoskeletal: No deformities, no limitation in range of motion. - Labs CBC & Chem 7: 10/11/19 04:02 10/11/19 04:02 Labs: Abnormal Lab Results - Last 24 Hours (Table) 10/09/19 10/10/19 10/10/19 Range/Units 00:06 12:16 16:48 WBC (3.8-10.6) k/uL RBC (3.80-5.40) m/uL Hgb (11.4-16.0) gm/dL Hct (34.0-46.0) % Neutrophils # (1.3-7.7) k/uL Lymphocytes # (1.0-4.8) k/uL Sodium (137-145) mmol/L BUN (7-17) mg/dL Creatinine (0.52-1.04) mg/dL Glucose (74-99) mg/dL POC Glucose (mg/dL) 200 H 206 H (75-99) mg/dL Calcium (8.4-10.2) mg/dL Alkaline Phosphatase (38-126) U/L Total Protein (6.3-8.2) g/dL Albumin (3.5-5.0) g/dL Crossmatch See Detail 10/10/19 10/11/19 10/11/19 Range/Units 20:27 03:52 04:02 WBC (3.8-10.6) k/uL RBC (3.80-5.40) m/uL Hgb (11.4-16.0) gm/dL Hct (34.0-46.0) % Neutrophils # (1.3-7.7) k/uL Lymphocytes # (1.0-4.8) k/uL Sodium 133 L (137-145) mmol/L BUN 47 H (7-17) mg/dL Creatinine 2.06 H (0.52-1.04) mg/dL Glucose 41 L* (74-99) mg/dL POC Glucose (mg/dL) 169 H 51 L (75-99) mg/dL Calcium 7.2 L (8.4-10.2) mg/dL Alkaline Phosphatase 227 H (38-126) U/L Total Protein 5.2 L (6.3-8.2) g/dL Albumin 2.6 L (3.5-5.0) g/dL Crossmatch 10/11/19 10/11/19 10/11/19 Range/Units 04:02 04:08 04:31 WBC 15.9 H (3.8-10.6) k/uL RBC 2.22 L (3.80-5.40) m/uL Hgb 6.8 L* (11.4-16.0) gm/dL Hct 21.9 L (34.0-46.0) % Neutrophils # 14.1 H (1.3-7.7) k/uL Lymphocytes # 0.7 L (1.0-4.8) k/uL Sodium (137-145) mmol/L BUN (7-17) mg/dL Creatinine (0.52-1.04) mg/dL Glucose (74-99) mg/dL POC Glucose (mg/dL) 66 L 197 H (75-99) mg/dL Calcium (8.4-10.2) mg/dL Alkaline Phosphatase (38-126) U/L Total Protein (6.3-8.2) g/dL Albumin (3.5-5.0) g/dL Crossmatch 10/11/19 Range/Units 07:00 WBC (3.8-10.6) k/uL RBC (3.80-5.40) m/uL Hgb (11.4-16.0) gm/dL Hct (34.0-46.0) % Neutrophils # (1.3-7.7) k/uL Lymphocytes # (1.0-4.8) k/uL Sodium (137-145) mmol/L BUN (7-17) mg/dL Creatinine (0.52-1.04) mg/dL Glucose (74-99) mg/dL POC Glucose (mg/dL) 187 H (75-99) mg/dL Calcium (8.4-10.2) mg/dL Alkaline Phosphatase (38-126) U/L Total Protein (6.3-8.2) g/dL Albumin (3.5-5.0) g/dL Crossmatch Microbiology - Last 24 Hours (Table) 10/09/19 22:34 Blood Culture - Preliminary Blood No Growth after 24 hours 10/09/19 02:55 Urine Culture - Final Urine,Catheterized Assessment and Plan Assessment: Impression: Intraperitoneal hemorrhage post cholecystectomy, postoperative day #6 Post cholecystectomy, postoperative day #6 Acute blood loss anemia in addition to history of chronic anemia secondary to chronic renal failure. Patient will receive a unit of packed RBCs today for hemoglobin of 6.8. Non-anion gap metabolic acidosis likely secondary to diarrhea. Acute on chronic kidney disease stage III possibly related to intravascular volume depletion and dehydration and blood loss. History of gallstone pancreatitis, status post cholecystectomy. Obesity with BMI of 43.1. History of CVA and left-sided weakness, resolved. Benign essential hypertension Type 2 diabetes with diabetic nephropathy is suspected. History of rheumatoid arthritis. History of stage II coccygeal wound Previous history of gastric sleeve 4 morbid obesity and subsequent weight loss. Recommendation: Transfuse for hemoglobin of 6.8. Transfer patient to [facility] once a bed is available. Continue oral bicarb Nephrology to evaluate her renal status. Continue insulin as per scale/sliding scale coverage. We'll continue to follow. Time with Patient: Less than 30
[2019-10-11 11:42] LABS: Glucose,Whole Blood 150 mg/dL (75-99)
[2019-10-11 12:11] LABS: Hypochromasia Moderate; MCH 30.7 pg (25.0-35.0); Macrocytosis Slight; Mean Platelet Volume 7.7; Platelet Count 251 k/uL (150-450); RBC 2.73 m/uL (3.80-5.40); RDW 14.9 % (11.5-15.5); WBC 16.1 k/uL (3.8-10.6)
[2019-10-11 12:21] LABS: HGB 8.4 gm/dL (11.4-16.0)
--- NOTE | 2019-10-11 13:42 | ECHOF ---
Referral Reason:CHF MEASUREMENTS -------- HEIGHT: 180.3 cm WEIGHT: 140.6 kg BP: IVSd: 1.4 cm (0.6 - 1.1) LVIDd: 3.2 cm (3.9 - 5.3) LVPWd: 1.4 cm (0.6 - 1.1) EDV(Teich): 40 ml IVSs: 1.8 cm LVIDs: 1.6 cm LVPWs: 1.7 cm %IVS Thck: 35 % ESV(Teich): 7 ml EF(Teich): 83 % %FS: 50 % SV(Teich): 33 ml RVIDd: 2.4 cm (< 3.3) LALs A4C: 6.0 cm LAAs A4C: 28.9 cm LAESV A-L A4C: 117 ml LAESV MOD A4C: 111 ml LALs A2C: 5.0 cm LAAs A2C: 16.3 cm LAESV A-L A2C: 45 ml LAESV MOD A2C: 43 ml LAESV(A-L): 80 ml LAESV Index (A-L): 31.38 ml/m Ao Diam: 3.0 cm (2.0 - 3.7) LA Diam: 3.9 cm (2.7 - 3.8) AV Cusp: 2.3 cm (1.5 - 2.6) EPSS: 0.5 cm MV E Alpesh: 1.01 m/s MV DecT: [address] [place]: 4.5 m/s MV A Alpesh: 0.89 m/s MV E/A Ratio: 1.13 MV PHT: 65 ms MR Vmax: 1.49 m/s MR maxP.91 mmHg AV Vmax: 1.46 m/s AV maxP.49 mmHg PV Vmax: 1.35 m/s PV maxP.30 mmHg TR Vmax: 3.51 m/s TR maxP.26 mmHg RAP: 5.00 mmHg RVSP: 54.26 mmHg MV EF SLOPE: 72.16 mm/s (70 - 150) MV EXCURSION: 15.97 mm (> 18.000) FINDINGS -------- This was a technically difficult study with suboptimal views. The left ventricular size is normal. There is moderate concentric left ventricular hypertrophy. O verall left ventricular systolic function is normal with, an EF between 55 - 60 %. Increased LAP Gr lewis 2 Diastolic Dysfunction. The right ventricle is normal in size. LA is midly dilated 29-33ml/m2. The right atrial size is normal. Lumason used The aortic valve is trileaflet and appears structurally normal. The mitral valve is normal. The mitral valve leaflets are mildly thickened. There is trace mitral regurgitation. The tricuspid valve appears structurally normal. Mild tricuspid regurgitation present. There is m oderate pulmonary hypertension. The right ventricular systolic pressure, as measured by Doppler, is 54.26mmHg. There is no pulmonic regurgitation present. The aortic root size is normal. IVC Not well visulized. There is no pericardial effusion. CONCLUSIONS -------- 1. The left ventricular size is normal. 2. There is moderate concentric left ventricular hypertrophy. 3. Overall left ventricular systolic function is normal with, an EF between 55 - 60 %. 4. Increased LAP Grade 2 Diastolic Dysfunction. 5. LA is midly dilated 29-33ml/m2. 6. The mitral valve leaflets are mildly thickened. 7. There is trace mitral regurgitation. 8. Mild tricuspid regurgitation present. 9. There is moderate pulmonary hypertension. 10. The right ventricular systolic pressure, as measured by Doppler, is 54.26mmHg. RETAIL SELLING SPECIALIST: Malgorzata Persaud RDCS
--- NOTE | 2019-10-11 14:26 | PN ---
PROGRESS NOTE DATE OF SERVICE: 10/11/2019 This is a 64-year-old woman who was admitted with an intraperitoneal bleeding, is being closely monitored. The patient had received 3 units of transfusion, hemoglobin is 6.8 today and give 1 more unit of transfusion hemoglobin is 8.4 today. Multiple consultants are following the patient closely, including Surgery, Nephrology and as well as Dr. Metcalf from Pulmonary Critical Care Management. PAST MEDICAL HISTORY: Reviewed. REVIEW OF SYSTEMS: CARDIOVASCULAR SYSTEM: No angina or palpitation. RESPIRATION: As mentioned earlier. GI: As mentioned earlier. : No dysuria. NERVOUS SYSTEM: No numbness or weakness. CURRENT MEDICATION: 1. Ventolin. 2. Norvasc. 3. Coreg. 4. Aricept. 5. Dilaudid. 6. NovoLog. 7. Levemir. 8. Narcan. 9. Protonix. 10.Zosyn 3.5. 11.Sodium bicarb. 12.Topamax. PHYSICAL EXAMINATION: The patient is alert and oriented x3. Pulse is 73, blood pressure is 130/80, respirations 16, temperature 98.2, pulse ox 94% on room air skin: HEENT: Conjunctivae normal. Oral mucosa moist. NECK: No jugular venous distention. No lymph node enlargement. CARDIOVASCULAR SYSTEMS: S1, S2, muffled. RESPIRATION: Breath sounds diminished at the bases, no rhonchi, no crackles. ABDOMEN: Soft, nontender. No guarding. No mass. LEGS: No edema. No swelling. NERVOUS SYSTEM: No focal deficits. LABS: WBC is 16.1, hemoglobin is 8.4. Accu-Cheks are 150 and 141. ASSESSMENT: 1. Intermittent bleeding, possibly with acute blood loss anemia, status post 3 units of transfusion. 2. Recent laparoscopic cholecystectomy. 3. Acute renal failure, possible acute tubular necrosis with prerenal factors. 4. Chronic kidney disease stage 3, baseline. 5. History of recent gallstone pancreatitis. 6. Elevated WBC. 7. Hyponatremia. 8. Increased AST, ALT with possible hepatitis, mild. 9. Troponin is 0.05, indeterminate. 10.Hypoalbuminemia with mild to moderate protein calorie malnutrition. 11.Diabetes mellitus type 2, uncontrolled with hyperglycemia. 12.Gastroesophageal reflux disease. 13.Hypertension. 14.Hyperlipidemia. 15.History of rheumatoid arthritis. 16.History of sleep apnea. 17.History of degenerative joint disease. 18.History of MRSA. 19.History of depression. 20.Obesity with body mass index of 43.1. 21.FULL CODE. RECOMMENDATION: Recommend to continue current management and symptomatic treatment. Otherwise, monitor hemoglobin closely, monitor has been transferred closely follow with Surgery and Pulmonary Critical Care. Prognosis guarded. Repeat labs. Avoid anticoagulants, antiplatelets, coag parameters are checked. Prognosis guarded. Further recommendations to follow. MMODL / IJN: [id number] / NIALL
--- NOTE | 2019-10-11 14:35 | P.PN ---
Subjective Progress Note Date: 10/11/19 CHIEF COMPLAINT: Intra-peritoneal hemorrhage HISTORY OF PRESENT ILLNESS: Alma Vivar is a 64-year-old female with multiple medical comorbidities including morbid obesity, history of sleeve gastrectomy, congestive heart failure, chronic renal insufficiency, previous history of strokes, poorly controlled insulin-dependent diabetes, chronic antiplatelet therapy, and depressive disorder who status post cholecystectomy 10/06/19 during recent hospitalization 09/28 to 10/07/19 for atypical chest pain and gallstone pancreatitis. During that hospitalization, patient was on Plavix, Cymbalta, heparin, and had complete cardiac workup. During surgery she had findings of hepatomegaly and acute cholecystitis. She came in with acute blood loss anemia with Hgb 8.4 with hypotension on presentation and was transfused [address] scan had showed intraperitoneal hematoma. Patient currently in the ICU. Patient did have a hemoglobin of 6.8 she's received 1 unit of packed red blood cells and she is on IV iron. Hemoglobin is now up to 8.4. Patient was given desmopressin. She did have some diarrhea. She is currently on a clear liquid diet. Her diet will be advanced today. She is afebrile. She denies any nausea or vomiting. WBC 16.1 hemoglobin 8.4 creatinine 2.06 Echo shows an EF of 55-60%, mild tricuspid regurgitation and moderate pulmonary hypertension Per cardiology the elevated troponin does not suggest myocardial injury. PHYSICAL EXAM: VITAL SIGNS: Reviewed GENERAL: Well-developed in no acute distress. HEENT: No sclera icterus. Extraocular movements grossly intact. Moist buccal mucosa. Head is atraumatic, normocephalic. Hears conversational speech. No nasal drainage. NECK: Supple without lymphadenopathy. CHEST: Non-labored respirations and equal bilateral excursions. CARDIOVASCULAR: Palpable 2+ radial pulses. ABDOMEN: Ecchymosis from heparin shots along lower abdomen. No diffuse peritonitis. Mild tenderness left upper quadrant to be expected. MUSCULOSKELETAL: No clubbing or cyanosis. NEUROLOGIC: No focal or lateralizing signs. Cranial nerves II through XII grossly intact. PSYCH: Appropriate affect. Alert and oriented to person, place and time. SKIN: Well perfused. Good skin turgor. ASSESSMENT: 1. Acute blood loss anemia secondary to intraperitoneal hematoma 2. Acute on chronic renal failure with elevated creatinine and oliguria 3. Dehydration 4. Adverse reaction with bleeding from Plavix, Cymbalta, anti-coagulants 5. Pre-existing iron deficiency anemia 6. Congestive cardiomyopathy 7. Insulin-dependent diabetes type 2 8. Morbid obesity 9. Platelet dysfunction with uremia PLAN: 1. She has multifactorial platelet dysfunction including recent Plavix and synergistic effect was Cymbalta and with acute on chronic renal failure. Harmony dozier was given 1 dose of desmopressin yesterday 2. Patient to be transferred out of the ICU to a regular medical floor today 3. Diet advanced to regular renal diet Physician Packer note has been reviewed by physician. Signing provider agrees with the documented findings, assessment, and plan of care. Objective - Vital Signs Vital signs: Vital Signs Temp 98.2 F 10/11/19 12:00 Pulse 88 10/11/19 14:15 Resp 16 10/11/19 12:00 BP 138/58 10/11/19 12:00 Pulse Ox 94 L 10/11/19 12:00 Intake & Output 10/10/19 10/11/19 10/11/19 18:59 06:59 18:59 Intake Total 1230 775 930 Output Total 235 385 460 Balance 995 390 470 Weight 143.4 kg Intake: IV 750 775 620 0.9 450 675 620 Dextrose 5% in Water 1, 300 000 ml @ 100 mls/hr IV . [id number] EMILIANO with Sodium Bicarb (1 Meq/ml) 150 ml Rx#:[id number] Piperacillin-Tazobactam 3 100 .375 gm In Sodium Chloride 0.9% 100 ml @ 25 mls/hr IVPB Q8H EMILIANO Rx#: [id number] Oral 480 Blood Product 310 Rc As-1 Unit 310 [id number] Output: Urine 235 385 460 Other: Voiding Method Indwelling Catheter Indwelling Catheter Indwelling Catheter # Bowel Movements 1 - Labs CBC & Chem 7: 10/11/19 11:38 10/11/19 04:02 Labs: Abnormal Lab Results - Last 24 Hours (Table) 10/09/19 10/10/19 10/10/19 Range/Units 00:06 16:48 20:27 WBC (3.8-10.6) k/uL RBC (3.80-5.40) m/uL Hgb (11.4-16.0) gm/dL Hct (34.0-46.0) % Neutrophils # (1.3-7.7) k/uL Lymphocytes # (1.0-4.8) k/uL Sodium (137-145) mmol/L BUN (7-17) mg/dL Creatinine (0.52-1.04) mg/dL Glucose (74-99) mg/dL POC Glucose (mg/dL) 206 H 169 H (75-99) mg/dL Calcium (8.4-10.2) mg/dL Alkaline Phosphatase (38-126) U/L Total Protein (6.3-8.2) g/dL Albumin (3.5-5.0) g/dL Crossmatch See Detail 10/11/19 10/11/19 10/11/19 Range/Units 03:52 04:02 04:02 WBC 15.9 H (3.8-10.6) k/uL RBC 2.22 L (3.80-5.40) m/uL Hgb 6.8 L* (11.4-16.0) gm/dL Hct 21.9 L (34.0-46.0) % Neutrophils # 14.1 H (1.3-7.7) k/uL Lymphocytes # 0.7 L (1.0-4.8) k/uL Sodium 133 L (137-145) mmol/L BUN 47 H (7-17) mg/dL Creatinine 2.06 H (0.52-1.04) mg/dL Glucose 41 L* (74-99) mg/dL POC Glucose (mg/dL) 51 L (75-99) mg/dL Calcium 7.2 L (8.4-10.2) mg/dL Alkaline Phosphatase 227 H (38-126) U/L Total Protein 5.2 L (6.3-8.2) g/dL Albumin 2.6 L (3.5-5.0) g/dL Crossmatch 10/11/19 10/11/19 10/11/19 Range/Units 04:08 04:31 07:00 WBC (3.8-10.6) k/uL RBC (3.80-5.40) m/uL Hgb (11.4-16.0) gm/dL Hct (34.0-46.0) % Neutrophils # (1.3-7.7) k/uL Lymphocytes # (1.0-4.8) k/uL Sodium (137-145) mmol/L BUN (7-17) mg/dL Creatinine (0.52-1.04) mg/dL Glucose (74-99) mg/dL POC Glucose (mg/dL) 66 L 197 H 187 H (75-99) mg/dL Calcium (8.4-10.2) mg/dL Alkaline Phosphatase (38-126) U/L Total Protein (6.3-8.2) g/dL Albumin (3.5-5.0) g/dL Crossmatch 10/11/19 10/11/19 Range/Units 11:38 11:41 WBC 16.1 H (3.8-10.6) k/uL RBC 2.73 L (3.80-5.40) m/uL Hgb 8.4 L D (11.4-16.0) gm/dL Hct 27.0 L (34.0-46.0) % Neutrophils # (1.3-7.7) k/uL Lymphocytes # (1.0-4.8) k/uL Sodium (137-145) mmol/L BUN (7-17) mg/dL Creatinine (0.52-1.04) mg/dL Glucose (74-99) mg/dL POC Glucose (mg/dL) 150 H (75-99) mg/dL Calcium (8.4-10.2) mg/dL Alkaline Phosphatase (38-126) U/L Total Protein (6.3-8.2) g/dL Albumin (3.5-5.0) g/dL Crossmatch Microbiology - Last 24 Hours (Table) 10/09/19 22:34 Blood Culture - Preliminary Blood No Growth after 24 hours 10/09/19 02:55 Urine Culture - Final Urine,Catheterized
[2019-10-11 17:01] LABS: Glucose,Whole Blood 144 mg/dL (75-99)
[2019-10-11 20:59] LABS: Glucose,Whole Blood 105 mg/dL (75-99)
[2019-10-12 01:32] LABS: Glucose,Whole Blood 84 mg/dL (75-99)
[2019-10-12] MEDS: PIPERACILLIN-TAZOBACTAM 3.375 GM in SODIUM CHLORIDE 0.9% 100 ML IVPB SCH ×3 (04:16→21:46)
[2019-10-12] MEDS: SODIUM CHLORIDE 0.9% 1,000 ML IV SCH ×2 (04:17→18:38)
[2019-10-12] MEDS: carvediloL 12.5 MG TAB PO SCH ×2 (06:45→18:16)
[2019-10-12] MEDS: PANTOPRAZOLE 40 MG TABLET PO SCH (06:45)
[2019-10-12 06:58] LABS: Glucose,Whole Blood 81 mg/dL (75-99)
[2019-10-12] MEDS: INSULIN ASPART (NovoLOG) 100 UNIT/ML VIAL SQ SCH ×4 (08:36→21:47)
[2019-10-12] MEDS: amLODIPine 10 MG TAB PO SCH (08:45)
[2019-10-12] MEDS: PREGABALIN 75 MG CAP PO SCH ×2 (08:45→21:48)
[2019-10-12] MEDS: TOPIRAMATE 25 MG TAB PO SCH ×2 (08:45→21:48)
[2019-10-12] MEDS: SODIUM BICARBONATE TAB 650 MG TAB PO SCH (08:45)
[2019-10-12] MEDS: ALBUTEROL NEBULIZED 2.5 MG/3 ML INHALATION SCH ×3 (09:03→18:48)
[2019-10-12 10:17] LABS: Basophils % (A) 0 %; Eosinophils # (A) 0.3 k/uL (0-0.7); Eosinophils % (A) 2 %; HCT 30.2 % (34.0-46.0); HGB 9.4 gm/dL (11.4-16.0); Hypochromasia Slight; Lymphocytes # (A) 0.8 k/uL (1.0-4.8); Lymphocytes % (A) 6 %; MCH 30.1 pg (25.0-35.0); MCHC 31.2 g/dL (31.0-37.0); MCV 96.4 fL (80.0-100.0); Mean Platelet Volume 8.1; Monocytes # (A) 0.7 k/uL (0-1.0); Monocytes % (A) 5 %; Neutrophils # (A) 11.7 k/uL (1.3-7.7); Neutrophils % (A) 86 %; Platelet Count 302 k/uL (150-450); RBC 3.13 m/uL (3.80-5.40); RDW 15.4 % (11.5-15.5); WBC 13.6 k/uL (3.8-10.6)
[2019-10-12 10:52] LABS: Albumin 2.8 g/dL (3.5-5.0); Calcium 7.5 mg/dL (8.4-10.2); Total Bilirubin 1.1 mg/dL (0.2-1.3); Total Protein 5.8 g/dL (6.3-8.2)
[2019-10-12 11:09] LABS: Potassium 4.3 mmol/L (3.5-5.1)
[2019-10-12] MEDS: HYDROmorphone 0.5 MG/0.5 ML SYRINGE IVP PRN ×3 (12:11→21:47)
--- NOTE | 2019-10-12 12:29 | PN ---
PROGRESS NOTE Mrs. Vivar is a lady with history of lap cholecystectomy, followed by intraperitoneal bleeding. I was asked to see her for CHF. Echo revealed normal systolic function. There is no evidence of CHF clinically. Her hemoglobin is being followed by the surgeon, Dr. Calero. She is resting comfortably without symptoms. From a cardiac standpoint, there are no active issues at this time. We will see her as needed. Vitals are stable, no JVD, S1-S2 heard normally. Lungs are clear. Abdomen is soft, less tender. The rest of physical exam unchanged. We will continue to see the patient as needed. MMODL / IJN: [id number] /
[2019-10-12 12:39] LABS: Glucose,Whole Blood 173 mg/dL (75-99)
--- NOTE | 2019-10-12 14:23 | P.PN ---
Subjective Progress Note Date: 10/12/19 CHIEF COMPLAINT: Intra-peritoneal hemorrhage HISTORY OF PRESENT ILLNESS: lAma Vivar is a 64-year-old female with multiple medical comorbidities including morbid obesity, history of sleeve gastrectomy, congestive heart failure, chronic renal insufficiency, previous history of strokes, poorly controlled insulin-dependent diabetes, chronic antiplatelet therapy, and depressive disorder who status post cholecystectomy 10/06/19 during recent hospitalization 09/28 to 10/07/19 for atypical chest pain and gallstone pancreatitis. During that hospitalization, patient was on Plavix, Cymbalta, heparin, and had complete cardiac workup. During surgery she had findings of hepatomegaly and acute cholecystitis. She came in with acute blood loss anemia with Hgb 8.4 with hypotension on presentation and was transfused [address] scan had showed intraperitoneal hematoma. Patient was transferred out of the ICU yesterday. She is currently on a regular medical floor. She had about 5 episodes of diarrhea. Stool is being sent for C. diff. Her diarrhea could be due to postcholecystectomy. She denies any nausea or vomiting. She is tolerating her renal diet. She is afebrile. WBC 13.6 hemoglobin is 9.4 creatinine is down to 1.15 PHYSICAL EXAM: VITAL SIGNS: Reviewed GENERAL: Well-developed in no acute distress. HEENT: No sclera icterus. Extraocular movements grossly intact. Moist buccal mucosa. Head is atraumatic, normocephalic. Hears conversational speech. No nasal drainage. NECK: Supple without lymphadenopathy. CHEST: Non-labored respirations and equal bilateral excursions. CARDIOVASCULAR: Palpable 2+ radial pulses. ABDOMEN: Ecchymosis from heparin shots along lower abdomen. No diffuse peritonitis. Mild tenderness left upper quadrant to be expected. MUSCULOSKELETAL: No clubbing or cyanosis. NEUROLOGIC: No focal or lateralizing signs. Cranial nerves II through XII grossly intact. PSYCH: Appropriate affect. Alert and oriented to person, place and time. SKIN: Well perfused. Good skin turgor. ASSESSMENT: 1. Acute blood loss anemia secondary to intraperitoneal hematoma 2. Acute on chronic renal failure with elevated creatinine and oliguria 3. Dehydration 4. Adverse reaction with bleeding from Plavix, Cymbalta, anti-coagulants 5. Pre-existing iron deficiency anemia 6. Congestive cardiomyopathy 7. Insulin-dependent diabetes type 2 8. Morbid obesity 9. Platelet dysfunction with uremia PLAN: 1. She has multifactorial platelet dysfunction including recent Plavix and synergistic effect was Cymbalta and with acute on chronic renal failure. Patient had improvement after receiving the desmopressin. 2. Patient to continue a low-fat renal diet 3. Diarrhea checking stool for C. diff Physician Network Contractor note has been reviewed by physician. Signing provider agrees with the documented findings, assessment, and plan of care. Objective - Vital Signs Vital signs: Vital Signs Temp 98.3 F 10/12/19 08:00 Pulse 80 10/12/19 09:14 Resp 19 10/12/19 08:00 BP 123/60 10/12/19 08:00 Pulse Ox 96 10/12/19 08:00 Intake & Output 10/11/19 10/12/19 10/12/19 18:59 06:59 18:59 Intake Total 1989 Output Total 460 1100 Balance 1530 -1100 Weight 136.5 kg Intake: IV 720 0.9 620 Piperacillin-Tazobactam 3 100 .375 gm In Sodium Chloride 0.9% 100 ml @ 25 mls/hr IVPB Q8H EMILIANO Rx#: [id number] Intake, IV Titration 960 Amount Sodium Chloride 0.9% 1, 960 000 ml @ 80 mls/hr IV . [id number] EMILIANO Rx#:[id number] Blood Product 310 Rc As-1 Unit 310 [id number] Output: Urine 460 1100 Other: Voiding Method Indwelling Catheter Indwelling Catheter Indwelling Catheter # Bowel Movements 1 1 - Labs CBC & Chem 7: 10/12/19 09:26 10/12/19 09:26 Labs: Abnormal Lab Results - Last 24 Hours (Table) 10/11/19 10/11/19 10/12/19 Range/Units 16:59 20:58 09:26 WBC (3.8-10.6) k/uL RBC (3.80-5.40) m/uL Hgb (11.4-16.0) gm/dL Hct (34.0-46.0) % Neutrophils # (1.3-7.7) k/uL Lymphocytes # (1.0-4.8) k/uL Sodium 136 L (137-145) mmol/L Chloride 108 H (98-107) mmol/L BUN 34 H (7-17) mg/dL Creatinine 1.15 H (0.52-1.04) mg/dL Glucose 109 H (74-99) mg/dL POC Glucose (mg/dL) 144 H 105 H (75-99) mg/dL Calcium 7.5 L (8.4-10.2) mg/dL Alkaline Phosphatase 245 H (38-126) U/L Total Protein 5.8 L (6.3-8.2) g/dL Albumin 2.8 L (3.5-5.0) g/dL 10/12/19 10/12/19 Range/Units 09:26 12:16 WBC 13.6 H (3.8-10.6) k/uL RBC 3.13 L (3.80-5.40) m/uL Hgb 9.4 L (11.4-16.0) gm/dL Hct 30.2 L (34.0-46.0) % Neutrophils # 11.7 H (1.3-7.7) k/uL Lymphocytes # 0.8 L (1.0-4.8) k/uL Sodium (137-145) mmol/L Chloride (98-107) mmol/L BUN (7-17) mg/dL Creatinine (0.52-1.04) mg/dL Glucose (74-99) mg/dL POC Glucose (mg/dL) 173 H (75-99) mg/dL Calcium (8.4-10.2) mg/dL Alkaline Phosphatase (38-126) U/L Total Protein (6.3-8.2) g/dL Albumin (3.5-5.0) g/dL Microbiology - Last 24 Hours (Table) 10/09/19 22:34 Blood Culture - Preliminary Blood No Growth after 48 hours
[2019-10-12] MEDS: INSULIN DETEMIR (LEVEMIR) 100 UNIT/ML SYR SQ SCH (15:18)
--- NOTE | 2019-10-12 16:35 | PN ---
PROGRESS NOTE Patient is seen for followup for acute kidney injury associated with anemia, low blood pressure and hypovolemia. Patient's renal function is improving. Creatinine is down to 1.15 from peak of 3.01. PHYSICAL EXAMINATION: On examination today, patient is comfortable, awake, not in any acute distress. Blood pressure was 123/60, heart rate 72 per minute. She is afebrile. EXAMINATION OF THE HEART: S1 and S2. EXAMINATION OF LUNGS: Bilateral breath sounds are heard. ABDOMEN: Soft, non-tender. Examination of lower extremities shows chronic skin changes. No significant edema is noted. CAR BODY DESIGNER exam is grossly intact. LABS: Labs show sodium 136, potassium 4.3, chloride 108, BUN 34, serum creatinine 1.15, hemoglobin 9.4 g/dL. ASSESSMENT: 1. Acute kidney injury secondary to severe anemia, hypovolemia and hypoperfusion, currently improved significantly. 2. Status post cholecystectomy October 05. 3. Acute blood loss anemia secondary to intraperitoneal hemorrhage. 4. Metabolic acidosis secondary to renal failure, maintained on oral sodium bicarb. PLAN: Discontinue sodium bicarb. Maintain IV fluids until patient is eating well. Continue to avoid nephrotoxic agents and repeat labs in a.m. MMODL / IJN: [id number] /
[2019-10-12 17:19] LABS: Glucose,Whole Blood 212 mg/dL (75-99)
[2019-10-12] MEDS: ONDANSETRON 4 MG/2 ML VIAL IVP PRN (18:32)
[2019-10-12 20:15] LABS: Glucose,Whole Blood 169 mg/dL (75-99)
[2019-10-13] MEDS: ONDANSETRON 4 MG/2 ML VIAL IVP PRN (00:03)
[2019-10-13] MEDS: HYDROmorphone 0.5 MG/0.5 ML SYRINGE IVP PRN ×4 (01:55→21:29)
[2019-10-13] MEDS: PIPERACILLIN-TAZOBACTAM 3.375 GM in SODIUM CHLORIDE 0.9% 100 ML IVPB SCH ×3 (03:14→20:53)
[2019-10-13] MEDS: PANTOPRAZOLE 40 MG TABLET PO SCH (06:42)
[2019-10-13] MEDS: carvediloL 12.5 MG TAB PO SCH ×2 (06:42→18:06)
[2019-10-13 07:16] LABS: Glucose,Whole Blood 86 mg/dL (75-99)
[2019-10-13] MEDS: INSULIN ASPART (NovoLOG) 100 UNIT/ML VIAL SQ SCH ×4 (08:03→23:17)
[2019-10-13] MEDS: ALBUTEROL NEBULIZED 2.5 MG/3 ML INHALATION SCH ×3 (08:59→20:40)
[2019-10-13] MEDS: INSULIN DETEMIR (LEVEMIR) 100 UNIT/ML SYR SQ SCH (09:52)
[2019-10-13] MEDS: PREGABALIN 75 MG CAP PO SCH ×2 (09:53→21:29)
[2019-10-13] MEDS: DIPHENOX-ATROP 2.5-0.025 MG 1 EACH TAB PO PRN ×2 (09:53→14:30)
[2019-10-13] MEDS: TOPIRAMATE 25 MG TAB PO SCH ×2 (09:53→21:29)
[2019-10-13] MEDS: amLODIPine 10 MG TAB PO SCH (09:53)
--- NOTE | 2019-10-13 10:56 | P.PN ---
Subjective Progress Note Date: 10/12/19 Principal diagnosis: Intraperitoneal bleeding Patient is a 64-year-old female who was admitted to hospital with intraperitoneal bleeding. Patient did receive 4 units of PRBC so far. Patient was transferred to medical floor now. Currently being followed by general surgery and nephrology. 10/12/2019 Patient is currently sitting in the chair comfortably. No complaints of abdo lisa pain.Tolerating oral diet. Patient is having 5 episodes of loose stools. C. diff toxin was sent. Denied any complaints of nausea or vomiting. No chest pain or shortness of breath. Patient has been afebrile. Laboratory data showed WBC 13.6 and creatinine level I.15, sodium 136 Current medications reviewed. Objective - Vital Signs Vital signs: Vital Signs Temp 96.1 F L 10/12/19 16:14 Pulse 92 10/12/19 18:56 Resp 16 10/12/19 18:56 BP 143/69 10/12/19 16:14 Pulse Ox 96 10/12/19 08:00 Intake & Output 10/12/19 10/12/19 10/13/19 06:59 18:59 06:59 Output Total 1100 1500 Balance -1100 -1500 Weight 136.5 kg 136.5 kg Output: Urine 1100 1500 Other: Voiding Method Indwelling Catheter Indwelling Catheter # Bowel Movements 4 1 - Exam PHYSICAL EXAMINATION: Patient is lying in the bed comfortably, no acute distress, awake alert and oriented. Morbidly obese.. HEENT: Normocephalic. Neck is supple. Pupils reactive. Nostrils clear. Oral cavity is moist. Ears reveal no drainage. Neck reveals no JVD, carotid bruits, or thyromegaly. CHEST EXAMINATION: Trachea is central. Symmetrical expansion. Bibasilar diminished air entry. Lung raphael clear to auscultation and percussion. CARDIAC: Normal S1, S2 with no gallops. No murmurs ABDOMEN: Soft. Mild left upper quadrant tenderness. Bowel sounds normal. No organomegaly. No abdominal bruits. Extremities: reveal no edema. No clubbing or cyanosis Neurologically awake, alert, oriented x3 with well-coordinated movements. No focal deficits noted Skin: No rash or skin lesions. Psychiatric: Coperative. Nonsuicidal Musculoskeletal: No joint swelling or deformity. Normal range of motion. - Labs CBC & Chem 7: 10/12/19 09:26 10/12/19 09:26 Labs: Abnormal Lab Results - Last 24 Hours (Table) 10/12/19 10/12/19 10/12/19 Range/Units 09:26 09:26 12:16 WBC 13.6 H (3.8-10.6) k/uL RBC 3.13 L (3.80-5.40) m/uL Hgb 9.4 L (11.4-16.0) gm/dL Hct 30.2 L (34.0-46.0) % Neutrophils # 11.7 H (1.3-7.7) k/uL Lymphocytes # 0.8 L (1.0-4.8) k/uL Sodium 136 L (137-145) mmol/L Chloride 108 H (98-107) mmol/L BUN 34 H (7-17) mg/dL Creatinine 1.15 H (0.52-1.04) mg/dL Glucose 109 H (74-99) mg/dL POC Glucose (mg/dL) 173 H (75-99) mg/dL Calcium 7.5 L (8.4-10.2) mg/dL Alkaline Phosphatase 245 H (38-126) U/L Total Protein 5.8 L (6.3-8.2) g/dL Albumin 2.8 L (3.5-5.0) g/dL 10/12/19 10/12/19 Range/Units 17:18 20:13 WBC (3.8-10.6) k/uL RBC (3.80-5.40) m/uL Hgb (11.4-16.0) gm/dL Hct (34.0-46.0) % Neutrophils # (1.3-7.7) k/uL Lymphocytes # (1.0-4.8) k/uL Sodium (137-145) mmol/L Chloride (98-107) mmol/L BUN (7-17) mg/dL Creatinine (0.52-1.04) mg/dL Glucose (74-99) mg/dL POC Glucose (mg/dL) 212 H 169 H (75-99) mg/dL Calcium (8.4-10.2) mg/dL Alkaline Phosphatase (38-126) U/L Total Protein (6.3-8.2) g/dL Albumin (3.5-5.0) g/dL Microbiology - Last 24 Hours (Table) 10/09/19 22:34 Blood Culture - Preliminary Blood No Growth after 48 hours Assessment and Plan Assessment: Acute blood loss anemia secondary to intraperitoneal bleed. Status post 4 units of blood transfusion so far. Acute on chronic kidney disease stage III. Nonoliguric. Possibly ATN due to acute blood loss anemia and hypotension. Improving now. Recent laparoscopic cholecystectomy Recent gallstone pancreatitis Leukocytosis Hypovolemic hyponatremia Diabetes type 2 uncontrolled with hyperglycemia GERD next and hypertension next and hyponatremia History of rheumatoid arthritis next obstructive sleep apnea next and degenerative joint disease History of MRSA Depression Obesity BMI 47.8 Patient is full code Plan: Patient will be continued on IV hydration and antibiotics in the form of Zosyn. C. diff toxin was sent. Hemoglobin is at 9.4 today. Patient is being continued erythropoietin. Nephrology and GI is following. Intraperitoneal bleeding is most likely multifactorial with Plavix, sinergetic effective with Cymbalta and acute kidney injury. Patient was given desmopressin with improvement. Current and renal diet. Discussed with the patient and her daughter at bedside in detail. Time with Patient: Greater than 30
--- NOTE | 2019-10-13 11:22 | PN ---
PROGRESS NOTE Patient is seen for followup for acute kidney injury mostly prerenal, currently improved. Patient is eating better. PHYSICAL EXAMINATION: Blood pressure is 147/65, heart rate 78 per minute, she is afebrile. Examination of the heart S1, S2. Examination of the lungs, decreased breath sounds at bases. Abdomen is soft, nontender. Examination of the lower extremities shows trace edema with chronic skin changes bilaterally. ESTIMATOR LUMBER exam is grossly intact. LABS: Show sodium 136, potassium 4.3, chloride 108, BUN 34, serum creatinine 1.15 from yesterday, hemoglobin was 9.4. ASSESSMENT: 1. Acute kidney injury secondary to severe anemia and hypovolemia and volume depletion, currently improved. 2. Status post cholecystectomy. 3. Intraperitoneal hemorrhage, currently stable, status post packed RBCs transfusion, 1 dose of DDAVP, maintained on IV iron as well. 4. Metabolic acidosis associated with renal failure, maintained on oral sodium bicarb. PLAN: Discontinue IV fluids, continue to encourage increased oral intake. Check labs in a.m. if patient is not discharged. Continue with Juliet. MMODL / IJN: [id number] /
[2019-10-13 11:54] LABS: Glucose,Whole Blood 127 mg/dL (75-99)
[2019-10-13 13:44] LABS: Basophils # (A) 0.1 k/uL (0-0.2); Basophils % (A) 1 %; Eosinophils # (A) 0.3 k/uL (0-0.7); Eosinophils % (A) 3 %; HCT 30.2 % (34.0-46.0); HGB 9.4 gm/dL (11.4-16.0); Hypochromasia Slight; Lymphocytes # (A) 0.8 k/uL (1.0-4.8); Lymphocytes % (A) 7 %; MCH 30.7 pg (25.0-35.0); MCHC 31.1 g/dL (31.0-37.0); MCV 98.7 fL (80.0-100.0); Macrocytosis Slight; Mean Platelet Volume 7.8; Monocytes # (A) 0.7 k/uL (0-1.0); Monocytes % (A) 6 %; Neutrophils # (A) 9.5 k/uL (1.3-7.7); Neutrophils % (A) 82 %; Platelet Count 362 k/uL (150-450); RBC 3.07 m/uL (3.80-5.40); RDW 15.6 % (11.5-15.5); WBC 11.5 k/uL (3.8-10.6)
[2019-10-13 13:46] LABS: Calcium 8.2 mg/dL (8.4-10.2); Potassium 4.3 mmol/L (3.5-5.1)
--- NOTE | 2019-10-13 14:02 | P.PN ---
Subjective Progress Note Date: 10/13/19 CHIEF COMPLAINT: Intra-peritoneal hemorrhage HISTORY OF PRESENT ILLNESS: Alma Vivar is a 64-year-old female with multiple medical comorbidities including morbid obesity, history of sleeve gastrectomy, congestive heart failure, chronic renal insufficiency, previous history of strokes, poorly controlled insulin-dependent diabetes, chronic antiplatelet therapy, and depressive disorder who status post cholecystectomy 10/06/19 during recent hospitalization 09/28 to 10/07/19 for atypical chest pain and gallstone pancreatitis. During that hospitalization, patient was on Plavix, Cymbalta, heparin, and had complete cardiac workup. During surgery she had findings of hepatomegaly and acute cholecystitis. She came in with acute blood loss anemia with Hgb 8.4 with hypotension on presentation and was transfused [address] scan had showed intraperitoneal hematoma. Patient is still having diarrhea. Maybe slightly better than yesterday. She was started on Lomotil and cholestyramine. She denies any nausea or vomiting. She is asking if she could go to subacute rehab after discharge. She is afebrile. WBC 11.5 hemoglobin 9.4 PHYSICAL EXAM: VITAL SIGNS: Reviewed GENERAL: Well-developed in no acute distress. HEENT: No sclera icterus. Extraocular movements grossly intact. Moist buccal mucosa. Head is atraumatic, normocephalic. Hears conversational speech. No nasal drainage. NECK: Supple without lymphadenopathy. CHEST: Non-labored respirations and equal bilateral excursions. CARDIOVASCULAR: Palpable 2+ radial pulses. ABDOMEN: Ecchymosis from heparin shots along lower abdomen. No diffuse peritonitis. Mild tenderness left upper quadrant to be expected. MUSCULOSKELETAL: No clubbing or cyanosis. NEUROLOGIC: No focal or lateralizing signs. Cranial nerves II through XII grossly intact. PSYCH: Appropriate affect. Alert and oriented to person, place and time. SKIN: Well perfused. Good skin turgor. ASSESSMENT: 1. Acute blood loss anemia secondary to intraperitoneal hematoma 2. Acute on chronic renal failure with elevated creatinine and oliguria 3. Dehydration 4. Adverse reaction with bleeding from Plavix, Cymbalta, anti-coagulants 5. Pre-existing iron deficiency anemia 6. Congestive cardiomyopathy 7. Insulin-dependent diabetes type 2 8. Morbid obesity 9. Platelet dysfunction with uremia 10. Possible cholecystectomy induced diarrhea PLAN: 1. She has multifactorial platelet dysfunction including recent Plavix and synergistic effect was Cymbalta and with acute on chronic renal failure. Patient had improvement after receiving the desmopressin. 2. Patient to continue a low-fat renal diet 3. Consult GI service regarding diarrhea 4. Discontinue Montgomery catheter 5. Lomotil, cholestyramine and lactobacillus acidoph and bulgar was added to help with patient's diarrhea 6. Consult PT OT and social work for ECF placement Physician Pension Examiner note has been reviewed by physician. Signing provider agrees with the documented findings, assessment, and plan of care. Objective - Vital Signs Vital signs: Vital Signs Temp 98.1 F 10/13/19 08:00 Pulse 80 10/13/19 09:11 Resp 19 10/13/19 08:00 BP 150/56 10/13/19 08:00 Pulse Ox 94 L 10/13/19 08:00 Intake & Output 10/12/19 10/13/19 10/13/19 18:59 06:59 18:59 Intake Total 220 Output Total 1500 800 Balance -1500 -800 220 Weight 136.5 kg 151 kg Intake: Oral 220 Output: Urine 1500 800 Other: Voiding Method Indwelling Catheter Indwelling Catheter Indwelling Catheter # Bowel Movements 4 1 5 - Labs CBC & Chem 7: 10/13/19 12:59 10/13/19 12:59 Labs: Abnormal Lab Results - Last 24 Hours (Table) 10/12/19 10/12/19 10/13/19 Range/Units 17:18 20:13 11:52 WBC (3.8-10.6) k/uL RBC (3.80-5.40) m/uL Hgb (11.4-16.0) gm/dL Hct (34.0-46.0) % RDW (11.5-15.5) % Neutrophils # (1.3-7.7) k/uL Lymphocytes # (1.0-4.8) k/uL Chloride (98-107) mmol/L BUN (7-17) mg/dL Glucose (74-99) mg/dL POC Glucose (mg/dL) 212 H 169 H 127 H (75-99) mg/dL Calcium (8.4-10.2) mg/dL 10/13/19 10/13/19 Range/Units 12:59 12:59 WBC 11.5 H (3.8-10.6) k/uL RBC 3.07 L (3.80-5.40) m/uL Hgb 9.4 L (11.4-16.0) gm/dL Hct 30.2 L (34.0-46.0) % RDW 15.6 H (11.5-15.5) % Neutrophils # 9.5 H (1.3-7.7) k/uL Lymphocytes # 0.8 L (1.0-4.8) k/uL Chloride 109 H (98-107) mmol/L BUN 20 H (7-17) mg/dL Glucose 128 H (74-99) mg/dL POC Glucose (mg/dL) (75-99) mg/dL Calcium 8.2 L (8.4-10.2) mg/dL Microbiology - Last 24 Hours (Table) 10/09/19 22:34 Blood Culture - Preliminary Blood No Growth after 72 hours
[2019-10-13 16:53] LABS: Glucose,Whole Blood 149 mg/dL (75-99)
[2019-10-13] MEDS: CHOLESTYRAMINE (WITH SUGAR) 4 GM PACKET PO SCH (18:06)
[2019-10-13] MEDS: LACTOBACILLUS ACIDOPH & BULGAR 1 EACH PACKET PO SCH (21:29)
[2019-10-13 21:34] LABS: Glucose,Whole Blood 110 mg/dL (75-99)
--- NOTE | 2019-10-14 00:26 | P.PN ---
Subjective Progress Note Date: 10/13/19 Principal diagnosis: Intraperitoneal bleeding Patient is a 64-year-old female who was admitted to hospital with intraperitoneal bleeding. Patient had recent cholecystectomy. Patient did receive 4 units of PRBC so far. Patient was transferred to medical floor now. Currently being followed by general surgery and nephrology. 10/12/2019 Patient is currently sitting in the chair comfortably. No complaints of abdominal pain.Tolerating oral diet. Patient is having 5 episodes of loose stools. C. diff toxin was sent. Denied any complaints of nausea or vomiting. No chest pain or shortness of breath. Patient has been afebrile. Laboratory data showed WBC 13.6 and creatinine level I.15, sodium 136 10/13/2019 Patient is currently lying in the bed comfortably. Diarrhea is better compared to yesterday. No complaints of chest pain or shortness breath. No abdominal pain. Hemoglobin is 9.4 today. Renal function is stable with BUN 20 and creatinine 1.01 PT OT was consulted and possible discharge to rehab. C. difficile toxin is negative. Patient is being continued on antibiotics in the form of Zosyn. Nephrology is on board. Current medications reviewed. Objective - Vital Signs Vital signs: Vital Signs Temp 97.8 F 10/13/19 16:00 Pulse 77 10/13/19 16:00 Resp 18 10/13/19 16:00 BP 151/72 10/13/19 16:00 Pulse Ox 96 10/13/19 16:00 Intake & Output 10/13/19 10/13/19 10/14/19 06:59 18:59 06:59 Intake Total 220 Output Total 800 800 Balance -800 -580 Weight 151 kg Intake: Oral 220 Output: Urine 800 800 Other: Voiding Method Indwelling Catheter Indwelling Catheter # Bowel Movements 1 5 - Exam PHYSICAL EXAMINATION: Patient is lying in the bed comfortably, no acute distress, awake alert and oriented. Morbidly obese.. HEENT: Normocephalic. Neck is supple. Pupils reactive. Nostrils clear. Oral cavity is moist. Ears reveal no drainage. Neck reveals no JVD, carotid bruits, or thyromegaly. CHEST EXAMINATION: Trachea is central. Symmetrical expansion. Bibasilar diminished air entry. Lung raphael clear to auscultation and percussion. CARDIAC: Normal S1, S2 with no gallops. No murmurs ABDOMEN: Soft. Mild left upper quadrant tenderness. Bowel sounds normal. No organomegaly. No abdominal bruits. Extremities: reveal no edema. No clubbing or cyanosis Neurologically awake, alert, oriented x3 with well-coordinated movements. No focal deficits noted Skin: No rash or skin lesions. Psychiatric: Coperative. Nonsuicidal Musculoskeletal: No joint swelling or deformity. Normal range of motion. - Labs CBC & Chem 7: 10/13/19 12:59 10/13/19 12:59 Labs: Abnormal Lab Results - Last 24 Hours (Table) 10/13/19 10/13/19 10/13/19 Range/Units 11:52 12:59 12:59 WBC 11.5 H (3.8-10.6) k/uL RBC 3.07 L (3.80-5.40) m/uL Hgb 9.4 L (11.4-16.0) gm/dL Hct 30.2 L (34.0-46.0) % RDW 15.6 H (11.5-15.5) % Neutrophils # 9.5 H (1.3-7.7) k/uL Lymphocytes # 0.8 L (1.0-4.8) k/uL Chloride 109 H (98-107) mmol/L BUN 20 H (7-17) mg/dL Glucose 128 H (74-99) mg/dL POC Glucose (mg/dL) 127 H (75-99) mg/dL Calcium 8.2 L (8.4-10.2) mg/dL 10/13/19 10/13/19 Range/Units 16:52 21:31 WBC (3.8-10.6) k/uL RBC (3.80-5.40) m/uL Hgb (11.4-16.0) gm/dL Hct (34.0-46.0) % RDW (11.5-15.5) % Neutrophils # (1.3-7.7) k/uL Lymphocytes # (1.0-4.8) k/uL Chloride (98-107) mmol/L BUN (7-17) mg/dL Glucose (74-99) mg/dL POC Glucose (mg/dL) 149 H 110 H (75-99) mg/dL Calcium (8.4-10.2) mg/dL Microbiology - Last 24 Hours (Table) 10/09/19 22:34 Blood Culture - Preliminary Blood No Growth after 72 hours Assessment and Plan Assessment: Acute blood loss anemia secondary to intraperitoneal bleed. Status post 4 units of blood transfusion so far. hb stable now. Acute on chronic kidney disease stage III. Nonoliguric. Possibly ATN due to acute blood loss anemia and hypotension. Improving now. Recent laparoscopic cholecystectomy Recent gallstone pancreatitis Leukocytosis Hypovolemic hyponatremia Diabetes type 2 uncontrolled with hyperglycemia GERD next and hypertension next and hyponatremia History of rheumatoid arthritis next obstructive sleep apnea next and degenerative joint disease History of MRSA Depression Obesity BMI 47.8 Patient is full code Plan: Patient will be continued on IV hydration and antibiotics in the form of Zosyn. C. diff toxin was -ve. Hemoglobin is at 9.4 today. Patient is being continued erythropoietin. Nephrology and GI was consulted. Intraperitoneal bleeding is most likely multifactorial with Plavix, sinergetic effective with Cymbalta and acute kidney injury. Patient was given desmopressin with improvement. Current and renal diet. Discussed with the patient and her daughter at bedside in detail. Time with Patient: Greater than 30
[2019-10-14] MEDS: PIPERACILLIN-TAZOBACTAM 3.375 GM in SODIUM CHLORIDE 0.9% 100 ML IVPB SCH (03:00)
[2019-10-14] MEDS: PANTOPRAZOLE 40 MG TABLET PO SCH (06:52)
[2019-10-14] MEDS: carvediloL 12.5 MG TAB PO SCH (06:52)
[2019-10-14 07:38] LABS: Calcium 8.7 mg/dL (8.4-10.2); Potassium 3.8 mmol/L (3.5-5.1)
[2019-10-14 08:08] LABS: Basophils % (A) 0 %; Eosinophils # (A) 0.3 k/uL (0-0.7); Eosinophils % (A) 3 %; HCT 30.1 % (34.0-46.0); HGB 9.6 gm/dL (11.4-16.0); Hypochromasia Slight; Lymphocytes % (A) 8 %; MCH 31.1 pg (25.0-35.0); MCHC 31.9 g/dL (31.0-37.0); MCV 97.5 fL (80.0-100.0); Macrocytosis Slight; Mean Platelet Volume 8.7; Monocytes # (A) 0.8 k/uL (0-1.0); Monocytes % (A) 7 %; Neutrophils # (A) 9.4 k/uL (1.3-7.7); Neutrophils % (A) 80 %; Platelet Count 309 k/uL (150-450); RBC 3.09 m/uL (3.80-5.40); RDW 15.7 % (11.5-15.5); WBC 11.8 k/uL (3.8-10.6)
[2019-10-14] MEDS: ALBUTEROL NEBULIZED 2.5 MG/3 ML INHALATION SCH ×2 (08:16→11:30)
[2019-10-14] MEDS: INSULIN ASPART (NovoLOG) 100 UNIT/ML VIAL SQ SCH ×2 (08:20→13:21)
[2019-10-14] MEDS: CHOLESTYRAMINE (WITH SUGAR) 4 GM PACKET PO SCH (08:26)
[2019-10-14] MEDS: LACTOBACILLUS ACIDOPH & BULGAR 1 EACH PACKET PO SCH (08:26)
[2019-10-14] MEDS: DIPHENOX-ATROP 2.5-0.025 MG 1 EACH TAB PO PRN (08:27)
[2019-10-14] MEDS: PREGABALIN 75 MG CAP PO SCH (08:28)
[2019-10-14] MEDS: amLODIPine 10 MG TAB PO SCH (08:28)
[2019-10-14] MEDS: TOPIRAMATE 25 MG TAB PO SCH (08:28)
[2019-10-14] MEDS: INSULIN DETEMIR (LEVEMIR) 100 UNIT/ML SYR SQ SCH (08:38)
[2019-10-14] MEDS: HYDROmorphone 0.5 MG/0.5 ML SYRINGE IVP PRN (09:44)
[2019-10-14 10:54] VITALS: BMI 47.9
[2019-10-14 11:38] VITALS: RESP 16; TEMP 97
--- NOTE | 2019-10-14 11:44 | P.PN ---
Subjective Progress Note Date: 10/14/19 CHIEF COMPLAINT: Intra-peritoneal hemorrhage HISTORY OF PRESENT ILLNESS: Alma Vivar is a 64-year-old female with multiple medical comorbidities including morbid obesity, history of sleeve gastrectomy, congestive heart failure, chronic renal insufficiency, previous history of strokes, poorly controlled insulin-dependent diabetes, chronic antiplatelet therapy, and depressive disorder who status post cholecystectomy 10/06/19 during recent hospitalization 09/28 to 10/07/19 for atypical chest pain and gallstone pancreatitis. During that hospitalization, patient was on Plavix, Cymbalta, heparin, and had complete cardiac workup. During surgery she had findings of hepatomegaly and acute cholecystitis. She came in with acute blood loss anemia with Hgb 8.4 with hypotension on presentation and was transfused [address] scan had showed intraperitoneal hematoma. Patient is reporting some improvement in her diarrhea. She was started on Lomotil and cholestyramine. She denies any nausea or vomiting. She is asking for Montgomery catheter can be removed. She is afebrile. WBC 11.8 hemoglobin 9.6 PHYSICAL EXAM: VITAL SIGNS: Reviewed GENERAL: Well-developed in no acute distress. HEENT: No sclera icterus. Extraocular movements grossly intact. Moist buccal mucosa. Head is atraumatic, normocephalic. Hears conversational speech. No nasal drainage. NECK: Supple without lymphadenopathy. CHEST: Non-labored respirations and equal bilateral excursions. CARDIOVASCULAR: Palpable 2+ radial pulses. ABDOMEN: Ecchymosis from heparin shots along lower abdomen. No diffuse peritonitis. Mild tenderness left upper quadrant to be expected. MUSCULOSKELETAL: No clubbing or cyanosis. NEUROLOGIC: No focal or lateralizing signs. Cranial nerves II through XII grossly intact. PSYCH: Appropriate affect. Alert and oriented to person, place and time. SKIN: Well perfused. Good skin turgor. ASSESSMENT: 1. Acute blood loss anemia secondary to intraperitoneal hematoma 2. Acute on chronic renal failure with elevated creatinine and oliguria 3. Dehydration 4. Adverse reaction with bleeding from Plavix, Cymbalta, anti-coagulants 5. Pre-existing iron deficiency anemia 6. Congestive cardiomyopathy 7. Insulin-dependent diabetes type 2 8. Morbid obesity 9. Platelet dysfunction with uremia 10. Possible cholecystectomy induced diarrhea PLAN: 1. She has multifactorial platelet dysfunction including recent Plavix and synergistic effect was Cymbalta and with acute on chronic renal failure. Patient had improvement after receiving the desmopressin. 2. Patient to continue a low-fat renal diet 3. Awaiting GI recommendations regarding diarrhea 4. Discontinue Montgomery catheter discussed with nurse 5. Continue Lomotil, cholestyramine and lactobacillus acidoph and bulgar for patient's diarrhea 6. Consult PT OT and social work for ECF placement 7. Discontinue IV fluids 8. Discontinue IV antibiotics 9. Anticipate discharge to ECF on Thursday Physician Director Embalmer note has been reviewed by physician. Signing provider agrees with the documented findings, assessment, and plan of care. Objective - Vital Signs Vital signs: Vital Signs Temp 97 F L 10/14/19 08:00 Pulse 82 10/14/19 08:18 Resp 16 10/14/19 08:00 BP 130/68 10/14/19 08:00 Pulse Ox 98 10/14/19 08:18 Intake & Output 10/13/19 10/14/19 10/14/19 18:59 06:59 18:59 Intake Total 220 Output Total 800 1800 Balance -580 -1800 Weight 151.5 kg 151.5 kg Intake: Oral 220 Output: Urine 800 1800 Other: Voiding Method Indwelling Catheter Indwelling Catheter Indwelling Catheter # Bowel Movements 5 0 3 # Emeses 1 - Labs CBC & Chem 7: 10/14/19 06:24 10/14/19 06:24 Labs: Abnormal Lab Results - Last 24 Hours (Table) 10/13/19 10/13/19 10/13/19 Range/Units 11:52 12:59 12:59 WBC 11.5 H (3.8-10.6) k/uL RBC 3.07 L (3.80-5.40) m/uL Hgb 9.4 L (11.4-16.0) gm/dL Hct 30.2 L (34.0-46.0) % RDW 15.6 H (11.5-15.5) % Neutrophils # 9.5 H (1.3-7.7) k/uL Lymphocytes # 0.8 L (1.0-4.8) k/uL Chloride 109 H (98-107) mmol/L BUN 20 H (7-17) mg/dL Glucose 128 H (74-99) mg/dL POC Glucose (mg/dL) 127 H (75-99) mg/dL Calcium 8.2 L (8.4-10.2) mg/dL 10/13/19 10/13/19 10/14/19 Range/Units 16:52 21:31 06:24 WBC 11.8 H (3.8-10.6) k/uL RBC 3.09 L (3.80-5.40) m/uL Hgb 9.6 L (11.4-16.0) gm/dL Hct 30.1 L (34.0-46.0) % RDW 15.7 H (11.5-15.5) % Neutrophils # 9.4 H (1.3-7.7) k/uL Lymphocytes # (1.0-4.8) k/uL Chloride (98-107) mmol/L BUN (7-17) mg/dL Glucose (74-99) mg/dL POC Glucose (mg/dL) 149 H 110 H (75-99) mg/dL Calcium (8.4-10.2) mg/dL 10/14/19 Range/Units 06:24 WBC (3.8-10.6) k/uL RBC (3.80-5.40) m/uL Hgb (11.4-16.0) gm/dL Hct (34.0-46.0) % RDW (11.5-15.5) % Neutrophils # (1.3-7.7) k/uL Lymphocytes # (1.0-4.8) k/uL Chloride 112 H (98-107) mmol/L BUN (7-17) mg/dL Glucose 113 H (74-99) mg/dL POC Glucose (mg/dL) (75-99) mg/dL Calcium (8.4-10.2) mg/dL Microbiology - Last 24 Hours (Table) 10/09/19 22:34 Blood Culture - Preliminary Blood No Growth after 96 hours
[2019-10-14 12:54] LABS: Glucose,Whole Blood 146 mg/dL (75-99)
--- NOTE | 2019-10-14 14:43 | PN ---
PROGRESS NOTE Patient is seen for followup for acute kidney injury. She is currently doing well. Patient wants to go home. She denies any significant complaints. PHYSICAL EXAMINATION: On examination today, blood pressure was 130/68, heart rate 80 per minute, she is afebrile. Examination of the heart S1, S2. Examination of the lungs, bilateral breath sounds are heard. Abdomen is soft, nontender, obese. Examination of the lower extremities shows chronic skin changes. Trace edema noted now. MARKLOGIC DEVELOPER exam grossly intact. LABS: Show hemoglobin 9.6, sodium 141, potassium 3.8, chloride 112, BUN 14, serum creatinine 0.87. ASSESSMENT: 1. Acute kidney injury, prerenal and secondary to hypotension and volume depletion, currently significantly improved and resolved. 2. Metabolic acidosis associated with renal failure, maintained on oral sodium bicarb. We will discontinue the bicarb. 3. Status post cholecystectomy. 4. Intraperitoneal hemorrhage, status post surgery, status post packed RBCs transfusion. Hemoglobin currently 9.6 g/dL. PLAN: Continue off IV fluids. Patient is stable for discharge from nephrology standpoint. MMODL / IJN: [id number] /
[2019-10-14 14:44] VITALS: BP 134/62; PULSE 75
[2019-10-14] MEDS ORDERED: ACETAMINOPHEN TAB 325 MG TAB PO PRN (15:44)
[2019-10-14] MEDS ORDERED: ONDANSETRON 4 MG TAB PO PRN (15:44)
--- NOTE | 2019-10-14 15:53 | P.PN ---
Subjective Progress Note Date: 10/14/19 Principal diagnosis: Acute blood loss anemia/ intraperitoneal hematoma Acute on chronic renal failure/dehydration Objective - Vital Signs Vital signs: Vital Signs Temp 98.0 F 10/14/19 03:55 Pulse 82 10/14/19 08:18 Resp 18 10/14/19 03:55 BP 161/71 10/14/19 03:55 Pulse Ox 98 10/14/19 08:18 Intake & Output 10/13/19 10/14/19 10/14/19 18:59 06:59 18:59 Intake Total 220 Output Total 800 1800 Balance -580 -1800 Weight 151.5 kg Intake: Oral 220 Output: Urine 800 1800 Other: Voiding Method Indwelling Catheter Indwelling Catheter # Bowel Movements 5 0 # Emeses 1 - Exam PHYSICAL EXAMINATION: GENERAL: The patient is alert and oriented x3, not in any acute distress. Well d eveloped, well nourished. HEENT: Pupils are round and equally reacting to light. EOMI. No scleral icterus. No conjunctival pallor. Normocephalic, atraumatic. No pharyngeal erythema. No thyromegaly. CARDIOVASCULAR: S1 and S2 present. No murmurs, rubs, or gallops. PULMONARY: Chest is clear to auscultation, no wheezing or crackles. ABDOMEN: Soft, nontender, nondistended, normoactive bowel sounds. No palpable organomegaly. MUSCULOSKELETAL: No joint swelling or deformity. EXTREMITIES: No cyanosis, clubbing, or pedal edema. NEUROLOGICAL: Gross neurological examination did not reveal any focal deficits. SKIN: No rashes. - Labs CBC & Chem 7: 10/14/19 06:24 10/14/19 06:24 Labs: Abnormal Lab Results - Last 24 Hours (Table) 10/13/19 10/13/19 10/13/19 Range/Units 11:52 12:59 12:59 WBC 11.5 H (3.8-10.6) k/uL RBC 3.07 L (3.80-5.40) m/uL Hgb 9.4 L (11.4-16.0) gm/dL Hct 30.2 L (34.0-46.0) % RDW 15.6 H (11.5-15.5) % Neutrophils # 9.5 H (1.3-7.7) k/uL Lymphocytes # 0.8 L (1.0-4.8) k/uL Chloride 109 H (98-107) mmol/L BUN 20 H (7-17) mg/dL Glucose 128 H (74-99) mg/dL POC Glucose (mg/dL) 127 H (75-99) mg/dL Calcium 8.2 L (8.4-10.2) mg/dL 10/13/19 10/13/19 10/14/19 Range/Units 16:52 21:31 06:24 WBC 11.8 H (3.8-10.6) k/uL RBC 3.09 L (3.80-5.40) m/uL Hgb 9.6 L (11.4-16.0) gm/dL Hct 30.1 L (34.0-46.0) % RDW 15.7 H (11.5-15.5) % Neutrophils # 9.4 H (1.3-7.7) k/uL Lymphocytes # (1.0-4.8) k/uL Chloride (98-107) mmol/L BUN (7-17) mg/dL Glucose (74-99) mg/dL POC Glucose (mg/dL) 149 H 110 H (75-99) mg/dL Calcium (8.4-10.2) mg/dL 10/14/19 Range/Units 06:24 WBC (3.8-10.6) k/uL RBC (3.80-5.40) m/uL Hgb (11.4-16.0) gm/dL Hct (34.0-46.0) % RDW (11.5-15.5) % Neutrophils # (1.3-7.7) k/uL Lymphocytes # (1.0-4.8) k/uL Chloride 112 H (98-107) mmol/L BUN (7-17) mg/dL Glucose 113 H (74-99) mg/dL POC Glucose (mg/dL) (75-99) mg/dL Calcium (8.4-10.2) mg/dL Microbiology - Last 24 Hours (Table) 10/09/19 22:34 Blood Culture - Preliminary Blood No Growth after 96 hours Assessment and Plan Assessment: Acute blood loss anemia secondary to intraperitoneal bleed. Status post 4 units of blood transfusion so far. hb stable now. Acute on chronic kidney disease stage III. Nonoliguric. Possibly ATN due to acute blood loss anemia and hypotension. Improving now. Recent laparoscopic cholecystectomy Recent gallstone pancreatitis Leukocytosis Hypovolemic hyponatremia Diabetes type 2 uncontrolled with hyperglycemia GERD next and hypertension next and hyponatremia History of rheumatoid arthritis next obstructive sleep apnea next and degenerative joint disease History of MRSA Depression Obesity BMI 47.8 Patient is full code Plan: Patient will be continued on IV hydration and antibiotics in the form of Zosyn. C. diff toxin was -ve. Hemoglobin is at 9.4 today. Patient is being continued erythropoietin. Nephrology and GI was consulted. Intraperitoneal bleeding is most likely multifactorial with Plavix, sinergetic effective with Cymbalta and acute kidney injury. Patient was given desmopressin with improvement. Current and renal diet.
--- NOTE | 2019-10-14 16:13 | CONS ---
CONSULTATION DATE OF DICTATION: 10/14/2019 REASON FOR CONSULTATION: Diarrhea. HISTORY OF PRESENT ILLNESS: The patient is a 64-year-old pleasant white female who recently had a hospitalization for acute gallstone pancreatitis, at which time she underwent gallbladder surgery by Dr. Calero and was discharged home last Thursday. The next day she was hospitalized again with severe abdominal pain, hypertension and anemia and was transfused 2 units of PRBC transfusion and she was noted to have an intraperitoneal hematoma. During this hospital stay she was complaining of diarrhea with bowel movements anywhere from 4-5 a day which are loose to watery in consistency. She was complaining of lower abdominal discomfort. No nausea, no vomiting. She never had this diarrhea in the past. Stool for C difficile toxin was negative. She was subsequently started on Questran one packet twice daily. She still had persistent diarrhea, and then she was started on Lomotil one tablet 3 times daily. Today she is feeling better. She had only one bowel movement. She denies any blood or mucus in the stool. She reports no nausea or vomiting. PAST MEDICAL HISTORY: Her past medical history is significant for recent hospitalization with acute gallstone pancreatitis. She underwent cholecystectomy on 10/05. History of diabetes mellitus, hypertension, hyperlipidemia, rheumatoid arthritis, chronic kidney disease. MEDICATIONS: Medications at home include Lantus, Protonix, Lyrica, Topamax, Norvasc, iron, Cymbalta, Lipitor, aspirin, Augmentin, percocet, Zestril, Coreg and calcitriol. ALLERGIES: NONE. SOCIAL HISTORY: No smoking. No alcohol use. FAMILY HISTORY: Mother had diabetes mellitus and father had coronary artery disease. PAST SURGICAL HISTORY: Recent cholecystectomy as described above. REVIEW OF SYSTEMS: CARDIOPULMONARY: She denies any chest pain or shortness of breath. GENITOURINARY: No dysuria or hematuria. MUSCULOSKELETAL: Unremarkable. SKIN: Unremarkable. PSYCHIATRY: Unremarkable. NEUROLOGY: Unremarkable. ENT/VISION: Unremarkable. CONSTITUTIONAL: No recent weight loss. No fever, chills, night sweats. HEMATOLOGY: Severe anemia. PHYSICAL EXAMINATION: She appears comfortable. No apparent distress. VITAL SIGNS: Stable. Blood pressure is 134/62, pulse rate 75, temperature 98. HEENT examination unremarkable. Conjunctivae pink. Sclerae anicteric. Oral cavity no lesions. NECK: No JVD or lymph node enlargement. CHEST: Clear to auscultation. HEART: Regular rate and rhythm. ABDOMEN: Soft. There was mild diffuse tenderness noted. EXTREMITIES: No pedal edema. SKIN: No rashes. NEUROLOGIC: Alert and oriented x3. No focal deficits. LABS: Labs from today show WBC 11.8, hemoglobin 9.6, platelets 309. Basic metabolic panel is within normal limits. BUN is 14, creatinine 0.87. IMPRESSION: 1. Acute onset of diarrhea for the last 5 days' duration, most likely related to antibiotics. C difficile toxin was negative. Patient is presently on Questran one packet twice daily and her diarrhea is improving. 2. Severe anemia secondary to intraperitoneal hematoma followed by laparoscopic cholecystectomy that was done a week ago for acute gallstone pancreatitis. The patient is status post 2 units of PRBC transfusion. Her hemoglobin is stable. 3. History of congestive heart failure. 4. Diabetes mellitus. 5. Morbid obesity. 6. Recent cholecystectomy, as described above. RECOMMENDATIONS: 1. Continue with Questran one packet twice daily. 2. Imodium as needed. 3. She is already on probiotics at the present time. 4. Increase ambulation. 5. Continue with current management plan. 6. No plans for any endoscopic intervention at the present time. Will follow with you closely. Thank you for this consultation. MMODL / IJN: [id number] /
[2019-10-14] MEDS: SODIUM CHLORIDE 0.9% 1,000 ML IV SCH (16:24)
--- NOTE | 2019-10-18 09:40 | CDI ---
Documentation Clarification Form Date: 10/18/19 From: Madelin Silva CCS Phone: If you have a question about this query, please contact Colleen Tarango, Manager Medicare at [phone] between 8am and 5pm. Admit Date: 10/09/19 Discharge Date:10/14/19 Patient Name: Alma Vivar Visit Number: [id number] ATTENTION: The Clinical Documentation Specialists (CDI) and [facility] Coding Staff appreciate your assistance in clarifying documentation. Please respond to the clarification below the line at the bottom and electronically sign. The CDI & [facility] Coding staff will review the response and follow-up if needed. Please note: Queries are made part of the Legal Health Record. If you have any questions, please contact the author of this message via ITS. Dear Dr. Calero, Acute intraperitoneal hemorrhage, status post laparoscopic cholecystectomy is documented in the ED, Consult, H&P, PNs. H&P, PNs document: Adverse reaction with bleeding from Plavix, Cymbalta, anti- coagulants Patients Admitting Diagnosis: Acute intraperitoneal hemorrhage, status post laparoscopic cholecystectomy History/Risk Factors: Post op day 3, Plavix d/c 09/28 admit, CKD, HTN, DM, Morbid obesity, ATN, ABLA Clinical Indicators: Acute intraperitoneal hemorrhage, status post laparoscopic cholecystectomy, ABLA Treatment: Monitor, Transfuse 3 units PRBC In order to accurately reflect this patients severity of illness, please clarify if the acute intraperitoneal hemorrhage -is coagulopathy due to adverse reaction from anti-coagulants -is a complication of surgical procedure -is an expected outcome of the surgical procedure -is related to co-morbid condition(s) of -Other please specify -Unable to determine -is coagulopathy due to adverse reaction from anti-coagulants including Plavix, Cymbalta, anti-coagulants -is related to co-morbid condition(s) of chronic antiplatelet therapy KM 10/26/19 19:36 MTDD
--- NOTE | 2019-10-27 07:50 | P.DS ---
Providers Date of admission: 10/09/19 00:30 Expected date of discharge: 10/14/19 Attending physician: Breann Calero Consults: 10/09/19 00:46 Consult Physician Stat Consulting Provider: Cindi Ragland Consult Reason/Comments: Critical Care Management Do you want consulting provider notified?: Already Contacted 10/09/19 10:30 Consult Physician Stat Consulting Provider: [place] Consult Reason/Comments: Acute renal failure Do you want consulting provider notified?: Yes 10/09/19 14:15 Consult Physician Routine Consulting Provider: Alix Crawford Consult Reason/Comments: Medical management Do you want consulting provider notified?: Yes 10/13/19 13:56 Consult Physician Routine Consulting Provider: Jennifer Estrada Consult Reason/Comments: diarrhea Do you want consulting provider notified?: Yes Primary care physician: Mere Rodriguez - Lacy Diagnosis(es) (1) Acute blood loss anemia Status: Acute (2) Acute on chronic renal failure Status: Acute (3) Intraperitoneal hemorrhage Status: Acute (4) Leukocytosis Status: Acute (5) Morbid obesity Status: Acute (6) Uremia Status: Acute (7) Platelet dysfunction Status: Acute Hospital Course: COURSE: Alma Vivar is a 64-year-old female with multiple medical comorbidities including morbid obesity, history of sleeve gastrectomy, congestive heart failure, chronic renal insufficiency, previous history of strokes, poorly controlled insulin-dependent diabetes, chronic antiplatelet therapy, and depressive disorder who status post cholecystectomy 10/06/19 during recent hospitalization 09/28 to 10/07/19 for atypical chest pain and gallstone pancreatitis. During that hospitalization, patient was on Plavix and had complete cardiac workup. During surgery she had findings of hepatomegaly and acute cholecystitis. Following surgery, she had improvement in her LFTs following discharge including stable hemoglobin 11.5 up to 11.8. She returned to the hospital with generalized malaise, fatigue and chronic diarrhea. She came in with acute blood loss anemia with Hgb 8.4 with hypotension on presentation and was transfused [address] scan of the abdomen and pelvis showed hematoma intraperitoneal. She was transferred to the ICU. Bleeding was controlled with DDAVP due to a platelet dysfunction from Plavix, Cymbalta, medications. Her bleeding resolved. Her chronic kidney disease had improved with recommendations from the hematology nurse. Patient is being followed by critical care aluminum siding applicator. Patient had elevated white count which had resolved with IV antibiotics. Patient was being prepared for discharge to rehab however patient left AGAINST MEDICAL ADVICE. Patient Condition at Discharge: Fair Plan - Discharge Summary New Discharge Prescriptions: No Action DULoxetine HCL [Cymbalta] 60 mg PO BID calcitrioL [Calcitriol] 0.5 mcg PO DAILY Topiramate [Topamax] 25 mg PO BID Ferrous Sulfate [Iron (65 MG Elemental)] 325 mg PO DAILY Atorvastatin [Lipitor] 40 mg PO DAILY Aspirin 81 mg PO DAILY carvediloL [Coreg*] 12.5 mg PO BID Insulin Glargine [Lantus] 32 unit SQ HS lisinopriL [Zestril] 2.5 mg PO DAILY amLODIPine [Norvasc] 10 mg PO DAILY INSULIN ASPART (NovoLOG) [NovoLOG (formulary)] See Protocol SQ AC-TID oxyCODONE-APAP 10-325MG [Percocet 10-325 mg] 1 tab PO QID PRN PRN Reason: Pain Pregabalin [Lyrica] 75 mg PO BID Amoxicillin/Potassium Clav [Augmentin 875-125 Tablet] 1 tab PO Q12HR 10 Days #20 tab Pantoprazole [Protonix] 40 mg PO DAILY #30 tablet.dr Discharge Medication List DULoxetine HCL [Cymbalta] 60 mg PO BID 09/30/13 [History] calcitrioL [Calcitriol] 0.5 mcg PO DAILY 09/30/13 [History] Ferrous Sulfate [Iron (65 MG Elemental)] 325 mg PO DAILY 07/06/16 [History] Topiramate [Topamax] 25 mg PO BID 07/06/16 [History] Aspirin 81 mg PO DAILY 01/06/17 [History] Atorvastatin [Lipitor] 40 mg PO DAILY 01/06/17 [History] carvediloL [Coreg*] 12.5 mg PO BID 04/06/18 [History] Insulin Glargine [Lantus] 32 unit SQ HS 06/05/18 [History] lisinopriL [Zestril] 2.5 mg PO DAILY 09/21/18 [History] INSULIN ASPART (NovoLOG) [NovoLOG (formulary)] See Protocol SQ AC-TID 09/29/19 [History] Pregabalin [Lyrica] 75 mg PO BID 09/29/19 [History] amLODIPine [Norvasc] 10 mg PO DAILY 09/29/19 [History] oxyCODONE-APAP 10-325MG [Percocet 10-325 mg] 1 tab PO QID PRN 09/29/19 [History] Amoxicillin/Potassium Clav [Augmentin 875-125 Tablet] 1 tab PO Q12HR 10 Days #20 tab 10/03/19 [Rx] Pantoprazole [Protonix] 40 mg PO DAILY #30 tablet. 10/03/19 [Rx] Follow up Appointment(s)/Referral(s): Mere Rodriguez DO [Primary Care Provider] - 1-2 days [facility], [NON-STAFF] - 1-2 Days Discharge Disposition: Left Against Medical Advice
== END 2019-10-14 16:54 | disposition left against medical advice (07) | DRG 393 ==
LOC: EC 21:35 → 2SICU 10-09 00:30 → 3SCARD 10-11 15:01 → 4SSUR 10-14 16:02
PROVIDERS: ADMIT Surgery Plastic and Reconstructive Surgery; ATTEND Surgery Plastic and Reconstructive Surgery
PROC: 30233N1 Transfusion of Nonautologous Red Blood Cells into Peripheral Vein, Percutaneous Approach (ICD-10-PCS; principal; 2019-10-09)
DX: K66.1 Hemoperitoneum (principal); N17.0 Acute kidney failure with tubular necrosis; D68.32 Hemorrhagic disorder due to extrinsic circulating anticoagulants; I69.354 Hemiplegia and hemiparesis following cerebral infarction affecting left non-dominant side; I13.0 Hypertensive heart and chronic kidney disease with heart failure and stage 1 through stage 4 chronic kidney disease, or unspecified chronic kidney disease; Z68.41 Body mass index [BMI] 40.0-44.9, adult; D62 Acute posthemorrhagic anemia; I42.0 Dilated cardiomyopathy; E87.2 Acidosis; E87.1 Hypo-osmolality and hyponatremia; E44.0 Moderate protein-calorie malnutrition; Z20.828 Contact with and (suspected) exposure to other viral communicable diseases; D69.1 Qualitative platelet defects; I27.22 Pulmonary hypertension due to left heart disease; D63.1 Anemia in chronic kidney disease; I50.9 Heart failure, unspecified; I95.9 Hypotension, unspecified; E11.22 Type 2 diabetes mellitus with diabetic chronic kidney disease; N18.3 Chronic kidney disease, stage 3 (moderate); Z79.4 Long term (current) use of insulin; E11.65 Type 2 diabetes mellitus with hyperglycemia; M06.9 Rheumatoid arthritis, unspecified; E66.01 Morbid (severe) obesity due to excess calories; K21.9 Gastro-esophageal reflux disease without esophagitis; G47.33 Obstructive sleep apnea (adult) (pediatric); F32.9 Major depressive disorder, single episode, unspecified; R00.0 Tachycardia, unspecified; M79.7 Fibromyalgia; G89.4 Chronic pain syndrome; M19.90 Unspecified osteoarthritis, unspecified site; M10.9 Gout, unspecified; K44.9 Diaphragmatic hernia without obstruction or gangrene; E86.0 Dehydration; R19.7 Diarrhea, unspecified; D72.829 Elevated white blood cell count, unspecified; E78.5 Hyperlipidemia, unspecified; H91.90 Unspecified hearing loss, unspecified ear; H54.7 Unspecified visual loss; E86.1 Hypovolemia; E78.00 Pure hypercholesterolemia, unspecified; R79.89 Other specified abnormal findings of blood chemistry; T45.525A Adverse effect of antithrombotic drugs, initial encounter; T45.515A Adverse effect of anticoagulants, initial encounter; Z71.3 Dietary counseling and surveillance; Z79.899 Other long term (current) drug therapy; Z79.82 Long term (current) use of aspirin; Z90.49 Acquired absence of other specified parts of digestive tract; Z87.81 Personal history of (healed) traumatic fracture; Z86.14 Personal history of Methicillin resistant Staphylococcus aureus infection; Z98.42 Cataract extraction status, left eye; Z98.41 Cataract extraction status, right eye; Z98.84 Bariatric surgery status; Z87.19 Personal history of other diseases of the digestive system; Z83.3 Family history of diabetes mellitus; Z82.49 Family history of ischemic heart disease and other diseases of the circulatory system; Z80.1 Family history of malignant neoplasm of trachea, bronchus and lung
CPT/HCPCS: 36415; 36430; 71045; 74176; 80048; 80053; 81001; 83605; 83690; 83735; 83880; 84145; 84484; 85025; 85027; 85610; 85730; 86850; 86900; 86901; 86920; 87040; 87086; 87324; 93005; 93306; 94640; 94760; 96374; 96375; 96376; 99285

== ENCOUNTER 2019-11-01 11:45 | Inpatient (IN) | payer MEDICARE ==
[2019-11-01] MEDS ORDERED: PANTOPRAZOLE 40 MG/10 ML VIAL IVP STA (12:24)
[2019-11-01] MEDS ORDERED: ONDANSETRON 4 MG/2 ML VIAL IVP STA ×2 (12:24→14:45)
[2019-11-01] MEDS ORDERED: IOPAMIDOL CONTRAST (ORAL USE) VIAL PO PRN (12:24)
[2019-11-01] MEDS ORDERED: SODIUM CHLORIDE 0.9% 1,000 ML IV STA (12:24)
[2019-11-01] MEDS ORDERED: HYDROmorphone 1 MG/ML 1 ML SYRINGE IVP STA (12:28)
--- NOTE | 2019-11-01 12:33 | ED ---
General Adult HPI - General Chief complaint: Abdominal Pain Stated complaint: abn labs, lt sided pain Time Seen by Provider: 11/01/19 12:09 Source: patient, family, RN notes reviewed Mode of arrival: wheelchair Limitations: no limitations - History of Present Illness Initial comments: Patient is a pleasant 64-year-old female presenting to the emergency Department with abdominal discomfort. Patient does have chronic abdominal pain. Patient did have gallbladder removed approximately 3 weeks ago. Patient states the past few days left-sided abdominal discomfort has increased. Patient has nausea. No vomiting. patient diarrhea. No fever. Patient does have history of previous bariatric surgery - Related Data Home Medications Medication Instructions Recorded Confirmed DULoxetine HCL [Cymbalta] 60 mg PO BID 09/30/13 11/01/19 calcitrioL [Calcitriol] 0.5 mcg PO DAILY 09/30/13 10/09/19 Topiramate [Topamax] 25 mg PO BID 07/06/16 11/01/19 Atorvastatin [Lipitor] 40 mg PO DAILY 01/06/17 11/01/19 carvediloL [Coreg*] 12.5 mg PO BID 04/06/18 11/01/19 Insulin Glargine [Lantus] 32 unit SQ HS 06/05/18 11/01/19 lisinopriL [Zestril] 2.5 mg PO DAILY 09/21/18 11/01/19 INSULIN ASPART (NovoLOG) [NovoLOG 12 unit SQ AC-TID 09/29/19 11/01/19 (formulary)] Pregabalin [Lyrica] 75 mg PO BID 09/29/19 11/01/19 amLODIPine [Norvasc] 10 mg PO DAILY 09/29/19 10/09/19 oxyCODONE-APAP 10-325MG [Percocet 1 tab PO QID PRN 09/29/19 11/01/19 10-325 mg] Clopidogrel [Plavix] 75 mg PO DAILY 11/01/19 11/01/19 Previous Rx's Medication Instructions Recorded Pantoprazole [Protonix] 40 mg PO DAILY #30 tablet. 10/03/19 Allergies Allergy/AdvReac Type Severity Reaction Status Date / Time No Known Allergies Allergy Verified 11/01/19 12:05 Review of Systems ROS Statement: Those systems with pertinent positive or pertinent negative responses have been documented in the HPI. ROS Other: All systems not noted in ROS Statement are negative. Constitutional: Denies: fever Eyes: Denies: eye pain ENT: Denies: ear pain Respiratory: Denies: cough Cardiovascular: Denies: chest pain Endocrine: Denies: fatigue Gastrointestinal: Reports: as per HPI, abdominal pain, nausea. Denies: vomiting Genitourinary: Denies: dysuria Musculoskeletal: Denies: back pain Skin: Denies: rash Past Medical History Past Medical History: CVA/TIA, Diabetes Mellitus, GERD/Reflux, Hyperlipidemia, Hypertension, Renal Disease, Rheumatoid Arthritis (RA), Sleep Apnea/CPAP/BIPAP Additional Past Medical History / Comment(s): CKD stage 3, broken Lt foot 2011- no sx, stroke 2004 affected non dominant lt side . lt side weaker than rt", vertigo, neck pain, mini stroke nov 2016. EARL and she has not used CPAP, RA, HTN, GERD, DM2 , right big toe ulcer. 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 Date of last positivie culture/infection: 02/24/19 MDRO Source:: Left Ear Past Surgical History: Breast Surgery, Cholecystectomy Additional Past Surgical History / Comment(s): breast biopsy, gastric sleeve 11/07/14, colonoscopy 04/14/14 bilateral cataract surgery Past Anesthesia/Blood Transfusion Reactions: Motion Sickness Past Psychological History: Depression Smoking Status: Never smoker Past Alcohol Use History: None Reported Past Drug Use History: None Reported - Past Family History Mother Family Medical History: Diabetes Mellitus Additional Family Medical History / Comment(s): heart attack, Brother of lung cancer 04/19/14 Father Family Medical History: Cancer Additional Family Medical History / Comment(s): lung cancer Brother(s) Family Medical History: Cancer Additional Family Medical History / Comment(s): LUNG General Exam Limitations: no limitations General appearance: alert, in no apparent distress, obese Head exam: Present: normocephalic Eye exam: Present: normal appearance Neck exam: Present: normal inspection Respiratory exam: Present: normal lung sounds bilaterally Cardiovascular Exam: Present: regular rate, normal rhythm Expanded Peripheral pulses: 2+: Dorsalis Pedis (R), Dorsalis Pedis (L) GI/Abdominal exam: Present: soft, tenderness (Moderate tenderness left mid abdomen), normal bowel sounds. Absent: distended, guarding, rebound, rigid, pulsatile mass Extremities exam: Present: other (Lymphedema bilateral) Neurological exam: Present: alert Psychiatric exam: Present: normal affect, normal mood Skin exam: Present: normal color Course Vital Signs 11/01/19 11/01/19 11/01/19 12:01 13:51 13:55 Temperature 98 F Pulse Rate 76 88 Respiratory 18 16 Rate Blood Pressure 203/96 240/110 214/125 O2 Sat by Pulse 96 98 Oximetry 11/01/19 11/01/19 11/01/19 14:01 14:46 15:01 Temperature Pulse Rate 77 97 Respiratory 16 18 Rate Blood Pressure 218/95 210/110 O2 Sat by Pulse 100 97 Oximetry 11/01/19 11/01/19 15:04 15:38 Temperature Pulse Rate Respiratory Rate Blood Pressure 215/107 201/98 O2 Sat by Pulse Oximetry Medical Decision Making - Medical Decision Making Patient reevaluated. Patient and family updated. Case discussed with Dr. Jeannie ramirez who will consult with the patient and requests medical admission. She requests holding Plavix. She does not feel patient needs any immediate surgical intervention and did review the computed tomography scan. He is also discussed with Dr. Zimmer, who will admit covering for Dr. Moreno. - Lab Data Result diagrams: 11/01/19 13:15 11/01/19 13:15 Lab Results 11/01/19 11/01/19 11/01/19 Range/Units 13:15 13:15 13:15 WBC 5.8 (3.8-10.6) k/uL RBC 4.35 (3.80-5.40) m/uL Hgb 13.1 (11.4-16.0) gm/dL Hct 42.4 (34.0-46.0) % MCV 97.5 (80.0-100.0) fL MCH 30.1 (25.0-35.0) pg MCHC 30.9 L (31.0-37.0) g/dL RDW 14.5 (11.5-15.5) % Plt Count 299 (150-450) k/uL Neutrophils % 78 % Lymphocytes % 11 % Monocytes % 6 % Eosinophils % 4 % Basophils % 1 % Neutrophils # 4.5 (1.3-7.7) k/uL Lymphocytes # 0.7 L (1.0-4.8) k/uL Monocytes # 0.4 (0-1.0) k/uL Eosinophils # 0.2 (0-0.7) k/uL Basophils # 0.0 (0-0.2) k/uL Manual Slide Review Performed Hypochromasia Moderate PT 10.5 (9.0-12.0) sec INR 1.0 (<1.2) APTT 30.4 H (22.0-30.0) sec Sodium 136 L (137-145) mmol/L Potassium 4.5 (3.5-5.1) mmol/L Chloride 99 (98-107) mmol/L Carbon Dioxide 32 H (22-30) mmol/L Anion Gap 5 mmol/L BUN 9 (7-17) mg/dL Creatinine 0.80 (0.52-1.04) mg/dL Est GFR (CKD-EPI)AfAm 90 (>60 ml/min/1.73 sqM) Est GFR (CKD-EPI)NonAf 78 (>60 ml/min/1.73 sqM) Glucose 331 H (74-99) mg/dL Calcium 9.4 (8.4-10.2) mg/dL Total Bilirubin 1.0 (0.2-1.3) mg/dL AST 24 (14-36) U/L ALT 8 (4-34) U/L Alkaline Phosphatase 151 H (38-126) U/L Total Protein 7.7 (6.3-8.2) g/dL Albumin 4.0 (3.5-5.0) g/dL Amylase 33 (30-110) U/L Lipase 52 (23-300) U/L Urine Color Urine Appearance (Clear) Urine pH (5.0-8.0) Ur Specific [place] (1.001-1.035) Urine Protein (Negative) Urine Glucose (UA) (Negative) Urine Ketones (Negative) Urine Blood (Negative) Urine Nitrite (Negative) Urine Bilirubin (Negative) Urine Urobilinogen (<2.0) mg/dL Ur Leukocyte Esterase (Negative) Urine RBC (0-5) /hpf Urine WBC (0-5) /hpf Ur Squamous Epith Cells (0-4) /hpf Urine Bacteria (None) /hpf Hyaline Casts (0-2) /lpf 11/01/19 Range/Units 13:51 WBC (3.8-10.6) k/uL RBC (3.80-5.40) m/uL Hgb (11.4-16.0) gm/dL Hct (34.0-46.0) % MCV (80.0-100.0) fL MCH (25.0-35.0) pg MCHC (31.0-37.0) g/dL RDW (11.5-15.5) % Plt Count (150-450) k/uL Neutrophils % % Lymphocytes % % Monocytes % % Eosinophils % % Basophils % % Neutrophils # (1.3-7.7) k/uL Lymphocytes # (1.0-4.8) k/uL Monocytes # (0-1.0) k/uL Eosinophils # (0-0.7) k/uL Basophils # (0-0.2) k/uL Manual Slide Review Hypochromasia PT (9.0-12.0) sec INR (<1.2) APTT (22.0-30.0) sec Sodium (137-145) mmol/L Potassium (3.5-5.1) mmol/L Chloride (98-107) mmol/L Carbon Dioxide (22-30) mmol/L Anion Gap mmol/L BUN (7-17) mg/dL Creatinine (0.52-1.04) mg/dL Est GFR (CKD-EPI)AfAm (>60 ml/min/1.73 sqM) Est GFR (CKD-EPI)NonAf (>60 ml/min/1.73 sqM) Glucose (74-99) mg/dL Calcium (8.4-10.2) mg/dL Total Bilirubin (0.2-1.3) mg/dL AST (14-36) U/L ALT (4-34) U/L Alkaline Phosphatase (38-126) U/L Total Protein (6.3-8.2) g/dL Albumin (3.5-5.0) g/dL Amylase (30-110) U/L Lipase (23-300) U/L Urine Color Light Yellow Urine Appearance Clear (Clear) Urine pH 7.0 (5.0-8.0) Ur Specific [place] 1.010 (1.001-1.035) Urine Protein 2+ H (Negative) Urine Glucose (UA) 4+ H (Negative) Urine Ketones 1+ H (Negative) Urine Blood Small H (Negative) Urine Nitrite Negative (Negative) Urine Bilirubin Negative (Negative) Urine Urobilinogen <2.0 (<2.0) mg/dL Ur Leukocyte Esterase Negative (Negative) Urine RBC 1 (0-5) /hpf Urine WBC 2 (0-5) /hpf Ur Squamous Epith Cells 1 (0-4) /hpf Urine Bacteria Rare H (None) /hpf Hyaline Casts 1 (0-2) /lpf - Radiology Data Radiology results: report reviewed (As discussed with radiologist there several areas of subacute versus old blood. There is one area in the pelvis that could be acute blood.) Disposition Clinical Impression: Abdominal pain, Abdominal hematoma Disposition: ADMITTED IP TO THIS [facility] Condition: Serious Referrals: Mere Moreno DO [Primary Care Provider] - 1-2 days Decision Time: 15:41
[2019-11-01 14:03] LABS: Calcium 9.4 mg/dL (8.4-10.2); Total Protein 7.7 g/dL (6.3-8.2)
[2019-11-01 14:04] LABS: Basophils % (A) 1 %; Eosinophils # (A) 0.2 k/uL (0-0.7); Eosinophils % (A) 4 %; HCT 42.4 % (34.0-46.0); HGB 13.1 gm/dL (11.4-16.0); Hypochromasia Moderate; Lymphocytes # (A) 0.7 k/uL (1.0-4.8); Lymphocytes % (A) 11 %; MCH 30.1 pg (25.0-35.0); MCHC 30.9 g/dL (31.0-37.0); MCV 97.5 fL (80.0-100.0); Mean Platelet Volume 7.9; Monocytes # (A) 0.4 k/uL (0-1.0); Monocytes % (A) 6 %; Neutrophils # (A) 4.5 k/uL (1.3-7.7); Neutrophils % (A) 78 %; Platelet Count 299 k/uL (150-450); Potassium 4.5 mmol/L (3.5-5.1); RBC 4.35 m/uL (3.80-5.40); RDW 14.5 % (11.5-15.5); WBC 5.8 k/uL (3.8-10.6)
[2019-11-01 14:07] LABS: Appearance,Urine Clear (Clear); Bacteria,Urine Rare /hpf; Bilirubin,Urine Negative (Negative); Blood,Urine Small (Negative); Color,Urine Light Yellow; Glucose,Urine (UA) 4+ (Negative); Hyaline Casts,Urine 1 /lpf (0-2); Ketones,Urine 1+ (Negative); Leukocyte Esterase,Urine Negative (Negative); Nitrite,Urine Negative (Negative); Protein,Urine 2+ (Negative); RBC,Urine 1 /hpf (0-5); Squamous Epithelial Cell,Urine 1 /hpf (0-4); Urobilinogen,Urine <2.0 mg/dL (<2.0); WBC,Urine 2 /hpf (0-5)
[2019-11-01 14:31] LABS: Partial Thromboplastin Time 30.4 sec (22.0-30.0); Prothrombin Time 10.5 sec (9.0-12.0)
[2019-11-01] MEDS ORDERED: ENALAPRILAT 1.25 MG/ML 1 ML VIAL IVP STA ×2 (14:45→15:57)
--- NOTE | 2019-11-01 14:53 | CT ---
EXAMINATION TYPE: CT abdomen pelvis w con DATE OF EXAM: 11/01/2019 COMPARISON: 11/08/2019 HISTORY: Left sided abdominal pain. Recent cholecystectomy. CT DLP: 2050.5 mGycm Automated exposure control for dose reduction was used. CONTRAST: CT scan of the abdomen pelvis is performed with IV Contrast, patient injected with 100 mL of Isovue 3 00. FINDINGS- LUNG BASES-subsegmental changes involving the lungs most typical of atelectasis.. LIVER/GB- No gross abnormality is appreciated. PANCREAS- No gross abnormality is seen. SPLEEN- No gross abnormality is seen. ADRENALS- No gross abnormality is seen. KIDNEYS/BLADDER- no hydronephrosis nephrolithiasis or renal mass. BOWEL-bowel gas pattern nonspecific. Appendix not visualized. LYMPH NODES- No greater than 1cm abdominal or pelvic lymph nodes are appreciated. OSSEOUS STRUCTURES-hypertrophic and degenerative change of the spine.. OTHER- small hiatal hernia. There is a subhepatic intermediate mixed fluid attenuation measuring 7.5 x 5 cm. Additionally in the region of the gallbladder fossa there appears to be metallic suture mate rial correlate clinically to exclude foreign body. There also appears to be intermediate density whic h may represent a combination of fluid and hemorrhage in the gallbladder fossa measuring 3.8 cm. Thes e findings are similar in location to the prior CT scan. Third collection is seen extending from the gallbladder fossa has round configuration is of mixed density measuring 6 cm there is reduced in size from prior exam also. May represent residual hematoma rather than abscess. Small amount of air in the anterior subcutaneous tissues in the area of skin thickening or edema note d anteriorly. Small subcutaneous hematoma. There is a pelvic fluid collection which is hyperdense measuring 8 x 5 cm suspicious for acute hemorr thalia. Slender multiple subcutaneous nodules anterior abdominal wall which are nonspecific. Mild subcu taneous edema noted. Case discussed with ER physician. Next line mild asymmetric appearance of the le ft rectus muscle could represent a small rectus sheath hematoma appears to extend from the area of rao spected surgical scar site. Measures a thickness of 11 mm. IMPRESSION- 1. There are multiple fluid intra-abdominal collections which corresponds to the previous hemorrhagic collections on the exam of 10/08/2019. The majority appear now to be reduced in size and likely on th e basis of residual hematoma. Some hyperdensity persists within the cavity suggestive of recent hemor rhage. 2. Within the pelvis there is a 8 x 5 cm hyperdense fluid collection suspicious for recent hemorrhage . ER physician notified of findings. Note is made the previous exam also demonstrated a collection in this region. However, its hyperdensity suggest more recent hemorrhage. 3. Residual mild thickening of the left rectus sheath sheath measuring 11 mm likely representing a sm all rectus sheath hematoma. Subcutaneous edema is noted and there is an area of ill-defined attenuati on within the anterior subcutaneous tissues extending to the skin which could represent scar or small soft tissue hematoma measuring 4.4 x 1.6 cm.
[2019-11-01] MEDS ORDERED: NALOXONE 0.4 MG/ML 1 ML VIAL IV PRN (15:42)
[2019-11-01] MEDS ORDERED: HYDROmorphone 1 MG/ML 1 ML SYRINGE IVP PRN (15:42)
[2019-11-01] MEDS ORDERED: carvediloL 12.5 MG TAB PO STA (16:32)
[2019-11-01 20:03] LABS: Glucose,Whole Blood 319 mg/dL (75-99)
[2019-11-01] MEDS: INSULIN ASPART (NovoLOG) 100 UNIT/ML VIAL SQ SCH (20:10)
[2019-11-01] MEDS: carvediloL 12.5 MG TAB PO SCH (20:10)
[2019-11-01] MEDS: oxyCODONE-APAP 10-325MG 1 EACH TAB PO PRN (21:46)
[2019-11-01] MEDS: INSULIN DETEMIR (LEVEMIR) 100 UNIT/ML SYR SQ SCH (21:49)
[2019-11-02] MEDS: oxyCODONE-APAP 10-325MG 1 EACH TAB PO PRN ×4 (03:12→21:22)
[2019-11-02] MEDS: ONDANSETRON 4 MG/2 ML VIAL IVP PRN ×3 (04:42→22:19)
[2019-11-02 06:04] LABS: Glucose,Whole Blood 101 mg/dL (75-99)
[2019-11-02] MEDS: INSULIN ASPART (NovoLOG) 100 UNIT/ML VIAL SQ SCH ×4 (06:16→20:22)
[2019-11-02 07:50] LABS: Basophils % (A) 1 %; Eosinophils # (A) 0.4 k/uL (0-0.7); Eosinophils % (A) 7 %; HCT 36.7 % (34.0-46.0); HGB 11.1 gm/dL (11.4-16.0); Hypochromasia Moderate; Lymphocytes % (A) 16 %; MCH 29.5 pg (25.0-35.0); MCHC 30.2 g/dL (31.0-37.0); MCV 97.6 fL (80.0-100.0); Mean Platelet Volume 7.4; Monocytes # (A) 0.4 k/uL (0-1.0); Monocytes % (A) 7 %; Neutrophils # (A) 4.1 k/uL (1.3-7.7); Neutrophils % (A) 68 %; Platelet Count 266 k/uL (150-450); RBC 3.76 m/uL (3.80-5.40); RDW 14.4 % (11.5-15.5)
[2019-11-02] MEDS: carvediloL 12.5 MG TAB PO SCH ×2 (09:30→19:36)
[2019-11-02] MEDS: PANTOPRAZOLE 40 MG/10 ML VIAL IV SCH (09:32)
--- NOTE | 2019-11-02 11:48 | P.HPIM ---
History of Present Illness This is a pleasant 64 years old female with multiple medical problems as below. Patient presents because of abdominal pain. Patient is poor historian, she has memory problems which she related to previous stroke. Patient states that she came to the hospital because of high blood sugar and high blood pressure, also she was stating she has some left upper quadrant abdominal pain, she could not remember for how long she has it, she says that currently is moderate but she could not remember how severe wasn't when she came to the hospital. She vomited once with us no blood in it. She has constipated for 3 days with no bowel movement. Patient states she was compliant with her medication otherwise her will be upset. However she states at times she forgets to take her medication and she was not sure if she forgot her medication the last couple days. She denies to me taking any blood thinner lead Coumadin, warfarin, Eliquis, Xarelto. She states she is taking only Plavix prescribed by her neurologist Tamar Cox more then 3 years ago for possible stroke. Also patient states that she came with abdominal pain about 3 weeks ago and she had cholecystectomy with the surgeon Dr. Barriga She denies smoking, alcohol or illicit drugs. She denies and signs and symptoms of depression. She does not use CPAP at home. Patient denies history of smoking, no alcohol or illicit drugs. On admission her blood pressure was 40/110. Currently blood pressure 157/67 and heart rate 67. CBC is unremarkable for WBC and platelets within normal limits. Hemoglobin dropped from 13.1 down to 11.1. INR is normal at 1.0. BMP is unremarkable. Liver enzymes not elevated. Sugar was high 331. UA showing glucosuria and ketonuria. CT of the abdomen and pelvis:1. Multiple with intra-abdominal collection which corresponded to previous hemorrhage collection on exam of 10/08/2019. The miniature T appear now to be reduced in size and likely on the basis of residual hematoma. Some hyperdensity presents with of the cavity suggestive of recent hemorrhage. 2.With the pelvis there is 8 x 5 cm hyperdense fluid collection suspicious for recent hemorrhage. 3. Mild thickening of the left rectus sheath measuring 11 mm likely r epresenting a small rectus sheath hematoma. As per ED notes radiologist at twice several areas of subacute versus old blood and there is one area in the pelvis that could be acute blood In the emergency room patient was started on a Protonix and IV fluids besides as pain medication. Also patient received Versed take 1.25 mg tabs 2 and Coreg 12.5 mg 1 Review of Systems CONSTITUTIONAL: No fever, no malaise, no fatigue. HEENT: No recent visual problems or hearing problems. Denied any sore throat. CARDIOVASCULAR: No orthopnea, PND, no palpitations, no syncope. PULMONARY: No shortness of breath, no cough, no hemoptysis. GASTROINTESTINAL: No diarrhea, no nausea, no vomiting, no abdominal pain. Normoactive bowel sounds. NEUROLOGICAL: No headaches, no weakness, no numbness. HEMATOLOGICAL: Denies any bleeding or petechiae. GENITOURINARY: Denies any burning micturition, frequency, or urgency. MUSCULOSKELETAL/RHEUMATOLOGICAL: Denies any joint pain, swelling, or any muscle pain. ENDOCRINE: Denies any polyuria or polydipsia. Past Medical History Past Medical History: CVA/TIA, Diabetes Mellitus, GERD/Reflux, Hyperlipidemia, Hypertension, Renal Disease, Rheumatoid Arthritis (RA), Sleep Apnea/CPAP/BIPAP Additional Past Medical History / Comment(s): CKD stage 3, broken Lt foot 2011- no sx, stroke 2004 affected non dominant lt side . lt side weaker than rt", vertigo, neck pain, mini stroke nov 2016. EARL and she has not used CPAP, RA, HTN, GERD, DM2 , right big toe ulcer. 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 Date of last positivie culture/infection: 02/24/19 MDRO Source:: Left Ear Past Surgical History: Breast Surgery, Cholecystectomy Additional Past Surgical History / Comment(s): breast biopsy, gastric sleeve , colonoscopy 04/14/14, bilateral cataract surgery Past Anesthesia/Blood Transfusion Reactions: Motion Sickness Past Psychological History: Depression Additional Psychological History / Comment(s): and lives with family home with her . 2 adult children. No tobacco or alcohol use. No experience. No international travel. Pet cats at home they are not new. Used to work in a care of handicapped persons Smoking Status: Never smoker Past Alcohol Use History: None Reported Past Drug Use History: None Reported - Past Family History Mother Family Medical History: Diabetes Mellitus Additional Family Medical History / Comment(s): heart attack, Brother of lung cancer 04/19/14 Father Family Medical History: Cancer Additional Family Medical History / Comment(s): lung cancer Brother(s) Family Medical History: Cancer Additional Family Medical History / Comment(s): LUNG Medications and Allergies Home Medications Medication Instructions Recorded Confirmed Type DULoxetine HCL [Cymbalta] 60 mg PO BID 09/30/13 11/01/19 History calcitrioL [Calcitriol] 0.5 mcg PO DAILY 09/30/13 10/09/19 History Topiramate [Topamax] 25 mg PO BID 07/06/16 11/01/19 History Atorvastatin [Lipitor] 40 mg PO DAILY 01/06/17 11/01/19 History carvediloL [Coreg*] 12.5 mg PO BID 04/06/18 11/01/19 History Insulin Glargine [Lantus] 32 unit SQ HS 06/05/18 11/01/19 History lisinopriL [Zestril] 2.5 mg PO DAILY 09/21/18 11/01/19 History INSULIN ASPART (NovoLOG) [NovoLOG 12 unit SQ AC-TID 09/29/19 11/01/19 History (formulary)] Pregabalin [Lyrica] 75 mg PO BID 09/29/19 11/01/19 History amLODIPine [Norvasc] 10 mg PO DAILY 09/29/19 10/09/19 History oxyCODONE-APAP 10-325MG [Percocet 1 tab PO QID PRN 09/29/19 11/01/19 History 10-325 mg] Pantoprazole [Protonix] 40 mg PO DAILY #30 tablet. 10/03/19 11/01/19 Rx Clopidogrel [Plavix] 75 mg PO DAILY 11/01/19 11/01/19 History Allergies Allergy/AdvReac Type Severity Reaction Status Date / Time No Known Allergies Allergy Verified 11/01/19 12:05 Physical Exam Vitals: Vital Signs Temp Pulse Pulse Resp BP BP Pulse Ox 11/02/19 08:00 67 16 157/67 92 L 11/02/19 03:42 66 18 11/02/19 03:41 98.1 F 66 18 157/77 99 11/01/19 23:24 76 16 11/01/19 23:23 98.4 F 76 16 148/64 98 11/01/19 20:00 97.9 F 76 18 191/86 98 11/01/19 19:47 97.9 F 76 18 191/86 98 11/01/19 18:28 98.4 F 86 16 187/84 97 11/01/19 17:39 16 194/88 97 11/01/19 17:20 190/93 11/01/19 17:01 190/93 11/01/19 16:45 16 202/94 100 11/01/19 16:30 90 16 197/93 100 11/01/19 16:00 98.8 F 90 18 203/97 97 11/01/19 15:38 201/98 11/01/19 15:04 215/107 11/01/19 15:01 97 18 97 11/01/19 14:46 210/110 11/01/19 14:01 77 16 218/95 100 11/01/19 13:55 214/125 11/01/19 13:51 88 16 240/110 98 11/01/19 12:01 98 F 76 18 203/96 96 Intake and Output 11/01/19 11/02/19 11/02/19 22:59 06:59 14:59 Intake Total 300 Output Total 200 250 Balance -200 300 -250 Intake: Oral 300 Output: Urine 200 250 Other: Voiding Method Toilet Toilet Toilet Diaper Diaper Diaper Incontinent Incontinent Incontinent # Voids 1 1 1 Weight 129.8 kg 129.8 kg -GENERAL: The patient is alert and oriented x2-3, not in any acute distress. Morbidly obese HEENT: Pupils are round and equally reacting to light. EOMI. No scleral icterus. No conjunctival pallor. Normocephalic, atraumatic. No pharyngeal erythema. No thyromegaly. CARDIOVASCULAR: S1 and S2 present. No murmurs, rubs, or gallops. PULMONARY: Chest is clear to auscultation, no wheezing or crackles. -ABDOMEN: Soft mild LUQ Tomas, no rebound tenderness , nondistended, normoactive bowel sounds. No palpable organomegaly. MUSCULOSKELETAL: No joint swelling or deformity. EXTREMITIES: No cyanosis, clubbing, or pedal edema. NEUROLOGICAL: Gross neurological examination did not reveal any focal deficits. SKIN: No rashes. No petechiae Results CBC & Chem 7: 11/02/19 07:27 11/01/19 13:15 Labs: Abnormal Lab Results - Last 24 Hours (Table) 11/01/19 11/01/19 11/01/19 Range/Units 13:15 13:15 13:15 RBC (3.80-5.40) m/uL Hgb (11.4-16.0) gm/dL MCHC 30.9 L (31.0-37.0) g/dL Lymphocytes # 0.7 L (1.0-4.8) k/uL APTT 30.4 H (22.0-30.0) sec Sodium 136 L (137-145) mmol/L Carbon Dioxide 32 H (22-30) mmol/L Glucose 331 H (74-99) mg/dL POC Glucose (mg/dL) (75-99) mg/dL Alkaline Phosphatase 151 H (38-126) U/L Urine Protein (Negative) Urine Glucose (UA) (Negative) Urine Ketones (Negative) Urine Blood (Negative) Urine Bacteria (None) /hpf 11/01/19 11/01/19 11/02/19 Range/Units 13:51 20:01 06:03 RBC (3.80-5.40) m/uL Hgb (11.4-16.0) gm/dL MCHC (31.0-37.0) g/dL Lymphocytes # (1.0-4.8) k/uL APTT (22.0-30.0) sec Sodium (137-145) mmol/L Carbon Dioxide (22-30) mmol/L Glucose (74-99) mg/dL POC Glucose (mg/dL) 319 H 101 H (75-99) mg/dL Alkaline Phosphatase (38-126) U/L Urine Protein 2+ H (Negative) Urine Glucose (UA) 4+ H (Negative) Urine Ketones 1+ H (Negative) Urine Blood Small H (Negative) Urine Bacteria Rare H (None) /hpf 11/02/19 Range/Units 07:27 RBC 3.76 L (3.80-5.40) m/uL Hgb 11.1 L (11.4-16.0) gm/dL MCHC 30.2 L (31.0-37.0) g/dL Lymphocytes # (1.0-4.8) k/uL APTT (22.0-30.0) sec Sodium (137-145) mmol/L Carbon Dioxide (22-30) mmol/L Glucose (74-99) mg/dL POC Glucose (mg/dL) (75-99) mg/dL Alkaline Phosphatase (38-126) U/L Urine Protein (Negative) Urine Glucose (UA) (Negative) Urine Ketones (Negative) Urine Blood (Negative) Urine Bacteria (None) /hpf Thrombosis Risk Factor Assmnt - Choose All That Apply Any of the Below Risk Factors Present?: Yes Each Factor Represents 1 point: Obesity (BMI >25) Other Risk Factors: Yes Each Risk Factor Represents 2 Points: Age 61-74 years Other congenital or acquired thrombophilia - If yes, enter type in comment: No Thrombosis Risk Factor Assessment Total Risk Factor Score: 3 Thrombosis Risk Factor Assessment Level: Moderate Risk Assessment and Plan Assessment: Abdominal hematoma, with pelvis hematoma Acute blood loss anemia memory problem, rule out dementia mal-Adherence to medication Diabetes mellitus, With hyperglycemia Hypertension, Uncontrolled with urgency, present on admission Hyperlipidemia Rheumatoid arthritis Sleep apnea on CPAP/BiPAP Chronic kidney disease stage III History of stroke in 2004 with left-sided hemiparesis Chronic neck pain GERD History of MRSA infection Depression Plan: This is a pleasant 64 years old female who presents with abdominal and pelvic hematoma And hypertensive urgency. Surgery team were consulted and followed the recommendation. Follow-up hemoglobin A1c. Follow-up blood pressure closely. Consult hematology. Consult speech therapy for memory assessment Labs and medication were reviewed.. Continue same treatment. Continue with symptomatic treatment. Resume home medication. Monitor lytes and vitals. DVT and GI prophylaxis. Further recommendations depends on the clinical course of the patient DVT prophylaxis: no Subcutaneous heparin in view of hematoma GI Prophylaxis: Ppi PT/OT: Pending Prognosis is guarded
[2019-11-02 11:59] LABS: Glucose,Whole Blood 149 mg/dL (75-99)
--- NOTE | 2019-11-02 14:02 | P.GSCN ---
History of Present Illness Consult date: 11/02/19 History of present illness: CHIEF COMPLAINT: Left-sided flank and abdominal pain HISTORY OF PRESENT ILLNESS: This is a 64-year-old female with past medical history of morbid obesity, sleep gastrectomy, congestive heart failure, chronic renal insufficiency, stroke, insulin-dependent diabetes mellitus, depression, status post cholecystectomy on 10/06/2019 for gallstone pancreatitis. She had another admission on 10/09/2019 due to a intraperitoneal hematoma. She required ICU care. Bleeding was controlled with DDAVP due to platelet dysfunction from Plavix and Cymbalta medications. Patient left AGAINST MEDICAL ADVICE on 10/14/2019. Patient presents to the hospital now with complaints of left sided pain. It appears that the pain is continued to increase over the last couple of days. She did have one episode of vomiting. She reports regular bowel movements. Patient had computed tomography scan of the abdomen and pelvis showing multiple fluid intra-abdominal collections which correspond to previous hemorrhagic collections on exam of 10/08/2019. The majority appear now to be reduced in size and likely on the basis of residual hematoma. Some hyperdensity persists within the cavity stress of recent hemorrhage. Within the pelvis there is a 8 x 5 cm hyperdense fluid collection suspicious for recent hemorrhage. Residual mild thickening of the left rectus sheath measuring 11 mm likely representing a small rectus sheath hematoma. Therefore, surgical consult was placed. Patient denies any fever, chills, sweats, bowel movement changes or urinary symptoms. PAST MEDICAL HISTORY: See list. PAST SURGICAL HISTORY: See list. MEDICATIONS: See list. ALLERGIES: See list. SOCIAL HISTORY: No illicit drug use. REVIEW OF SYSTEMS: CONSTITUTIONAL: Denies fever or chills. HEENT: Denies blurred vision, vision changes, or eye pain. Denies hemoptysis ENDOCRINE: Denies heat or cold intolerance. CARDIOVASCULAR: Denies chest pain or pressure. RESPIRATORY: No shortness of breath. GASTROINTESTINAL: Denies abdominal pain. Denies nausea or vomiting. NEURO: Denies history of seizures. PSYCH: No depression or suicidal ideation HEMATOLOGIC: Denies bleeding disorders. LYMPHATIC: The patient denies any lumps and bumps around the neck. GENITOURINARY: Denies any blood in urine or increased urinary frequency. MUSCULOSKELETAL: Denies myalgias. Denies joint swelling. Denies decreased range of motion beyond patients baseline. SKIN: Denies pruitis. Denies rash. PHYSICAL EXAM: VITAL SIGNS: Reviewed GENERAL: Well-developed in no acute distress. HEENT: No sclera icterus. Extraocular movements grossly intact. Moist buccal mucosa. Head is atraumatic, normocephalic. Hears conversational speech. No nasal drainage. NECK: Supple without lymphadenopathy. CHEST: Non-labored respirations and equal bilateral excursions. CARDIOVASCULAR: Palpable 2+ radial pulses. ABDOMEN: Soft. Obese Nondistended. Nontender. Mild tenderness with palpation of the left flank. No evidence of bruising or ecchymosis. Incision sites are healing. Clean dry and intact. No evidence of drainage. MUSCULOSKELETAL: No clubbing or cyanosis. NEUROLOGIC: No focal or lateralizing signs. Cranial nerves II through XII grossly intact. PSYCH: Appropriate affect. Alert and oriented to person, place and time. SKIN: Well perfused. Good skin turgor. LABORATORY DATA: WBC 6.0 hemoglobin 11.1 platelets 266 IMAGING: computed tomography scan of the abdomen and pelvis showing multiple fluid intra- abdominal collections which correspond to previous hemorrhagic collections on exam of 10/08/2019. The majority appear now to be reduced in size and likely on the basis of residual hematoma. Some hyperdensity persists within the cavity stress of recent hemorrhage. Within the pelvis there is a 8 x 5 cm hyperdense fluid collection suspicious for recent hemorrhage. Residual mild thickening of the left rectus sheath measuring 11 mm likely representing a small rectus sheath hematoma. Subcutaneous edema is noted and there is an area of ill-defined attenuation within the anterior subcutaneous tissues extending to the skin which could represent scar small tissue hematoma measuring 4.4 X 1.6 cm ASSESSMENT: 1. Intra-abdominal and pelvic hematoma 2. Left rectus sheath hematoma 3. Recent hospitalization with acute blood loss anemia secondary to intrape ritoneal hematoma 4. History of leaving AGAINST MEDICAL ADVICE on last hospitalization 10/14/2019 5. History of noncompliance 6. Insulin-dependent diabetes mellitus type 2 7. Morbid obesity 8. Chronic kidney disease stage III 9. Essential hypertension with uncontrolled blood pressure 10. Status post cholecystectomy 10/06/2019 PLAN: -Continue to monitor patient closely -No surgical intervention planned at this time -Monitor daily CBC Physician Soft Sugar Operator Head note has been reviewed by physician. Signing provider agrees with the documented findings, assessment, and plan of care. Past Medical History Past Medical History: CVA/TIA, Diabetes Mellitus, GERD/Reflux, Hyperlipidemia, Hypertension, Renal Disease, Rheumatoid Arthritis (RA), Sleep Apnea/CPAP/BIPAP Additional Past Medical History / Comment(s): CKD stage 3, broken Lt foot 2011- no sx, stroke 2004 affected non dominant lt side . lt side weaker than rt", vertigo, neck pain, mini stroke nov 2016. EARL and she has not used CPAP, RA, HTN, GERD, DM2 , right big toe ulcer. 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 Year Discovered:: 02/24/19 MDRO Source:: Left Ear Past Surgical History: Breast Surgery, Cholecystectomy Additional Past Surgical History / Comment(s): breast biopsy, gastric sleeve 11/07/14, colonoscopy 04/14/14, bilateral cataract surgery Past Anesthesia/Blood Transfusion Reactions: Motion Sickness Past Psychological History: Depression Additional Psychological History / Comment(s): and lives with family renard e with her . 2 adult children. No tobacco or alcohol use. No experience. No international travel. Pet cats at home they are not new. Used to work in a care of handicapped persons Smoking Status: Never smoker Past Alcohol Use History: None Reported Past Drug Use History: None Reported - Past Family History Mother Family Medical History: Diabetes Mellitus Additional Family Medical History / Comment(s): heart attack, Brother of lung cancer 04/19/14 Father Family Medical History: Cancer Additional Family Medical History / Comment(s): lung cancer Brother(s) Family Medical History: Cancer Additional Family Medical History / Comment(s): LUNG Medications and Allergies Home Medications Medication Instructions Recorded Confirmed Type DULoxetine HCL [Cymbalta] 60 mg PO BID 09/30/13 11/01/19 History calcitrioL [Calcitriol] 0.5 mcg PO DAILY 09/30/13 10/09/19 History Topiramate [Topamax] 25 mg PO BID 07/06/16 11/01/19 History Atorvastatin [Lipitor] 40 mg PO DAILY 01/06/17 11/01/19 History carvediloL [Coreg*] 12.5 mg PO BID 04/06/18 11/01/19 History Insulin Glargine [Lantus] 32 unit SQ HS 06/05/18 11/01/19 History lisinopriL [Zestril] 2.5 mg PO DAILY 09/21/18 11/01/19 History INSULIN ASPART (NovoLOG) [NovoLOG 12 unit SQ AC-TID 09/29/19 11/01/19 History (formulary)] Pregabalin [Lyrica] 75 mg PO BID 09/29/19 11/01/19 History amLODIPine [Norvasc] 10 mg PO DAILY 09/29/19 10/09/19 History oxyCODONE-APAP 10-325MG [Percocet 1 tab PO QID PRN 09/29/19 11/01/19 History 10-325 mg] Pantoprazole [Protonix] 40 mg PO DAILY #30 tablet. 10/03/19 11/01/19 Rx Clopidogrel [Plavix] 75 mg PO DAILY 11/01/19 11/01/19 History Allergies Allergy/AdvReac Type Severity Reaction Status Date / Time No Known Allergies Allergy Verified 11/01/19 12:05 Surgical - Exam Vital Signs Temp Pulse Resp BP Pulse Ox 98 F 76 18 203/96 96 11/01/19 12:01 11/01/19 12:01 11/01/19 12:01 11/01/19 12:01 11/01/19 12:01 Results - Labs 11/02/19 07:27 11/01/19 13:15 Abnormal Lab Results - Last 24 Hours (Table) 11/01/19 11/01/19 11/01/19 Range/Units 13:15 13:15 13:15 RBC (3.80-5.40) m/uL Hgb (11.4-16.0) gm/dL MCHC 30.9 L (31.0-37.0) g/dL Lymphocytes # 0.7 L (1.0-4.8) k/uL APTT 30.4 H (22.0-30.0) sec Sodium 136 L (137-145) mmol/L Carbon Dioxide 32 H (22-30) mmol/L Glucose 331 H (74-99) mg/dL POC Glucose (mg/dL) (75-99) mg/dL Alkaline Phosphatase 151 H (38-126) U/L Urine Protein (Negative) Urine Glucose (UA) (Negative) Urine Ketones (Negative) Urine Blood (Negative) Urine Bacteria (None) /hpf 11/01/19 11/01/19 11/02/19 Range/Units 13:51 20:01 06:03 RBC (3.80-5.40) m/uL Hgb (11.4-16.0) gm/dL MCHC (31.0-37.0) g/dL Lymphocytes # (1.0-4.8) k/uL APTT (22.0-30.0) sec Sodium (137-145) mmol/L Carbon Dioxide (22-30) mmol/L Glucose (74-99) mg/dL POC Glucose (mg/dL) 319 H 101 H (75-99) mg/dL Alkaline Phosphatase (38-126) U/L Urine Protein 2+ H (Negative) Urine Glucose (UA) 4+ H (Negative) Urine Ketones 1+ H (Negative) Urine Blood Small H (Negative) Urine Bacteria Rare H (None) /hpf 11/02/19 11/02/19 Range/Units 07:27 11:55 RBC 3.76 L (3.80-5.40) m/uL Hgb 11.1 L (11.4-16.0) gm/dL MCHC 30.2 L (31.0-37.0) g/dL Lymphocytes # (1.0-4.8) k/uL APTT (22.0-30.0) sec Sodium (137-145) mmol/L Carbon Dioxide (22-30) mmol/L Glucose (74-99) mg/dL POC Glucose (mg/dL) 149 H (75-99) mg/dL Alkaline Phosphatase (38-126) U/L Urine Protein (Negative) Urine Glucose (UA) (Negative) Urine Ketones (Negative) Urine Blood (Negative) Urine Bacteria (None) /hpf Diabetes panel 11/01/19 Range/Units 13:15 Sodium 136 L (137-145) mmol/L Potassium 4.5 (3.5-5.1) mmol/L Chloride 99 (98-107) mmol/L Carbon Dioxide 32 H (22-30) mmol/L BUN 9 (7-17) mg/dL Creatinine 0.80 (0.52-1.04) mg/dL Glucose 331 H (74-99) mg/dL Calcium 9.4 (8.4-10.2) mg/dL AST 24 (14-36) U/L ALT 8 (4-34) U/L Alkaline Phosphatase 151 H (38-126) U/L Total Protein 7.7 (6.3-8.2) g/dL Albumin 4.0 (3.5-5.0) g/dL Calcium panel 11/01/19 Range/Units 13:15 Calcium 9.4 (8.4-10.2) mg/dL Albumin 4.0 (3.5-5.0) g/dL Pituitary panel 11/01/19 Range/Units 13:15 Sodium 136 L (137-145) mmol/L Potassium 4.5 (3.5-5.1) mmol/L Chloride 99 (98-107) mmol/L Carbon Dioxide 32 H (22-30) mmol/L BUN 9 (7-17) mg/dL Creatinine 0.80 (0.52-1.04) mg/dL Glucose 331 H (74-99) mg/dL Calcium 9.4 (8.4-10.2) mg/dL Adrenal panel 11/01/19 Range/Units 13:15 Sodium 136 L (137-145) mmol/L Potassium 4.5 (3.5-5.1) mmol/L Chloride 99 (98-107) mmol/L Carbon Dioxide 32 H (22-30) mmol/L BUN 9 (7-17) mg/dL Creatinine 0.80 (0.52-1.04) mg/dL Glucose 331 H (74-99) mg/dL Calcium 9.4 (8.4-10.2) mg/dL Total Bilirubin 1.0 (0.2-1.3) mg/dL AST 24 (14-36) U/L ALT 8 (4-34) U/L Alkaline Phosphatase 151 H (38-126) U/L Total Protein 7.7 (6.3-8.2) g/dL Albumin 4.0 (3.5-5.0) g/dL
[2019-11-02 16:11] LABS: Hemoglobin A1C 7.1 % (4.0-6.0)
[2019-11-02 16:52] LABS: Glucose,Whole Blood 142 mg/dL (75-99)
[2019-11-02 20:21] LABS: Glucose,Whole Blood 212 mg/dL (75-99)
[2019-11-02] MEDS: INSULIN DETEMIR (LEVEMIR) 100 UNIT/ML SYR SQ SCH (20:22)
[2019-11-03] MEDS: oxyCODONE-APAP 10-325MG 1 EACH TAB PO PRN ×4 (03:19→21:23)
[2019-11-03 06:08] LABS: Glucose,Whole Blood 57 mg/dL (75-99)
[2019-11-03] MEDS: INSULIN ASPART (NovoLOG) 100 UNIT/ML VIAL SQ SCH ×4 (06:09→22:04)
[2019-11-03 06:21] LABS: Glucose,Whole Blood 68 mg/dL (75-99)
[2019-11-03 06:37] LABS: Glucose,Whole Blood 90 mg/dL (75-99)
[2019-11-03 08:14] LABS: HCT 39.6 % (34.0-46.0); HGB 12.3 gm/dL (11.4-16.0); Hypochromasia Moderate; MCH 30.7 pg (25.0-35.0); MCHC 31.1 g/dL (31.0-37.0); MCV 98.7 fL (80.0-100.0); Mean Platelet Volume 7.8; Platelet Count 323 k/uL (150-450); RBC 4.01 m/uL (3.80-5.40); RDW 14.6 % (11.5-15.5); WBC 6.9 k/uL (3.8-10.6)
[2019-11-03] MEDS: ONDANSETRON 4 MG/2 ML VIAL IVP PRN (09:21)
[2019-11-03] MEDS: carvediloL 12.5 MG TAB PO SCH ×2 (09:24→22:04)
[2019-11-03] MEDS: PANTOPRAZOLE 40 MG/10 ML VIAL IV SCH (09:24)
--- NOTE | 2019-11-03 10:51 | P.PN ---
Subjective This is a pleasant 64 years old female with multiple medical problems as below. Patient presents because of abdominal pain. Patient is poor historian, she has memory problems which she related to previous stroke. Patient states that she came to the hospital because of high blood sugar and high blood pressure, also she was stating she has some left upper quadrant abdominal pain, she could not remember for how long she has it, she says that currently is moderate but she could not remember how severe wasn't when she came to the hospital. She vomited once with us no blood in it. She has constipated for 3 days with no bowel movement. Patient states she was compliant with her medication otherwise her will be upset. However she states at times she forgets to take her medication and she was not sure if she forgot her medication the last couple days. She denies to me taking any blood thinner lead Coumadin, warfarin, Eliquis, Xare lto. She states she is taking only Plavix prescribed by her neurologist Tamar Cox more then 3 years ago for possible stroke. Also patient states that she came with abdominal pain about 3 weeks ago and she had cholecystectomy with the surgeon Dr. Barriga She denies smoking, alcohol or illicit drugs. She denies and signs and symptoms of depression. She does not use CPAP at home. Patient denies history of smoking, no alcohol or illicit drugs. On admission her blood pressure was 40/110. Currently blood pressure 157/67 and heart rate 67. CBC is unremarkable for WBC and platelets within normal limits. Hemoglobin dropped from 13.1 down to 11.1. INR is normal at 1.0. BMP is unremarkable. Liver enzymes not elevated. Sugar was high 331. UA showing glucosuria and ketonuria. CT of the abdomen and pelvis:1. Multiple with intra-abdominal collection which corresponded to previous hemorrhage collection on exam of 10/08/2019. The miniature T appear now to be reduced in size and likely on the basis of residual hematoma. Some hyperdensity presents with of the cavity suggestive of recent hemorrhage. 2.With the pelvis there is 8 x 5 cm hyperdense fluid collection suspicious for recent hemorrhage. 3. Mild thickening of the left rectus sheath measuring 11 mm likely representing a small rectus sheath hematoma. As per ED notes radiologist at twice several areas of subacute versus old blood and there is one area in the pelvis that could be acute blood In the emergency room patient was started on a Protonix and IV fluids besides as pain medication. Also patient received Versed take 1.25 mg tabs 2 and Coreg 12.5 mg 1 11/03/2019 Patient still has mild LUQ tenderness about 6/10 in severity, it she is eating well, no diarrhea, no fever. Blood pressure 166/75. Hemoglobin is stable at 11.3. Glucose was low at 57 this morning. Currently is 90. Surgical team following the patient closely, no need for surgical intervention. Hematology team were consulted. Patient remains on Protonix, her hemoglobin A1c 7.1% Review of Systems CONSTITUTIONAL: No fever, no malaise, no fatigue. HEENT: No recent visual problems or hearing problems. Denied any sore throat. CARDIOVASCULAR: No orthopnea, PND, no palpitations, no syncope. PULMONARY: No shortness of breath, no cough, no hemoptysis. GASTROINTESTINAL: No diarrhea, no nausea, no vomiting, no abdominal pain. Normoactive bowel sounds. NEUROLOGICAL: No headaches, no weakness, no numbness. HEMATOLOGICAL: Denies any bleeding or petechiae. GENITOURINARY: Denies any burning micturition, frequency, or urgency. MUSCULOSKELETAL/RHEUMATOLOGICAL: Denies any joint pain, swelling, or any muscle pain. ENDOCRINE: Denies any polyuria or polydipsia. Active Medications Generic Name Dose Route Start Last Admin Trade Name Freq PRN Reason Stop Dose Admin Carvedilol 12.5 mg 11/01/19 21:00 11/03/19 09:24 Carvedilol 12.5 Mg Tab PO 12.5 mg BID EMILIANO Administration Hydromorphone HCl 1 mg 11/01/19 15:42 11/01/19 15:55 Hydromorphone 1 Mg/Ml 1 Ml Syringe IVP 1 mg Q3HR PRN Administration Severe Pain Insulin Aspart 0 unit 11/01/19 21:00 11/03/19 06:09 Insulin Aspart (Novolog) 100 Unit/Ml Vial SQ Not Given ACHS [facility] Protocol Insulin Detemir 30 unit 11/03/19 21:00 Insulin Detemir (Levemir) 100 Unit/Ml Syr SQ HS EMILIANO Lisinopril 2.5 mg 11/02/19 09:00 11/03/19 09:22 Lisinopril 2.5 Mg Tab PO 2.5 mg DAILY EMILIANO Administration Naloxone HCl 0.2 mg 11/01/19 15:42 Naloxone 0.4 Mg/Ml 1 Ml Vial IV Q2M PRN Opioid Reversal Ondansetron HCl 4 mg 11/01/19 15:42 11/03/19 09:21 Ondansetron 4 Mg/2 Ml Vial IVP 4 mg Q8HR PRN Administration Nausea And Vomiting Oxycodone/Acetaminophen 1 each 11/01/19 21:32 11/03/19 09:22 Oxycodone-Apap 10-325mg 1 Each Tab PO 1 each QID PRN Administration Pain Pantoprazole Sodium 40 mg 11/02/19 09:00 11/03/19 09:24 Pantoprazole 40 Mg/10 Ml Vial IV 40 mg DAILY EMILIANO Administration Objective - Vital Signs Vital signs: Vital Signs Temp 98.0 F 11/03/19 04:00 Pulse 66 11/03/19 08:00 Resp 16 11/03/19 08:00 BP 166/75 11/03/19 08:00 Pulse Ox 95 11/03/19 08:00 Intake & Output 11/02/19 11/03/19 11/03/19 18:59 06:59 18:59 Intake Total 300 120 Output Total 250 Balance -250 300 120 Weight 128.5 kg Intake: Oral 300 120 Output: Urine 250 Other: Voiding Method Diaper Diaper Diaper Incontinent Incontinent Incontinent # Voids 1 2 # Bowel Movements 1 - Exam GENERAL: The patient is alert and oriented x3, not in any acute distress. Obese HEENT: Pupils are round and equally reacting to light. EOMI. No scleral icterus. No conjunctival pallor. Normocephalic, atraumatic. No pharyngeal erythema. No thyromegaly. CARDIOVASCULAR: S1 and S2 present. No murmurs, rubs, or gallops. PULMONARY: Chest is clear to auscultation, no wheezing or crackles. ABDOMEN: Soft,mild LUQ tenderness, no rebound tenderness or guarding, nondistended, normoactive bowel sounds. No palpable organomegaly. MUSCULOSKELETAL: No joint swelling or deformity. EXTREMITIES: No cyanosis, clubbing, or pedal edema. NEUROLOGICAL: Gross neurological examination did not reveal any focal deficits. SKIN: No rashes. no petechiae. - Labs CBC & Chem 7: 11/03/19 07:11 11/01/19 13:15 Labs: Abnormal Lab Results - Last 24 Hours (Table) 11/02/19 11/02/19 11/02/19 Range/Units 07:27 11:55 16:51 POC Glucose (mg/dL) 149 H 142 H (75-99) mg/dL Hemoglobin A1c 7.1 H (4.0-6.0) % 11/02/19 11/03/19 11/03/19 Range/Units 20:20 06:07 06:20 POC Glucose (mg/dL) 212 H 57 L 68 L (75-99) mg/dL Hemoglobin A1c (4.0-6.0) % Assessment and Plan Assessment: Abdominal hematoma, with pelvis hematoma Acute blood loss anemia memory problem, rule out dementia mal-Adherence to medication Diabetes mellitus, With hyperglycemia Hypertension, Uncontrolled with urgency, present on admission Hyperlipidemia Rheumatoid arthritis Sleep apnea on CPAP/BiPAP Chronic kidney disease stage III History of stroke in 2004 with left-sided hemiparesis Chronic neck pain GERD History of MRSA infection Depression Plan: This is a pleasant 64 years old female who presents with abdominal and pelvic hematoma And hypertensive urgency. Surgery team were consulted and followed the recommendation. Follow-up hemoglobin A1c. Follow-up blood pressure closely. Consult hematology. Consult speech therapy for memory assessment Labs and medication were reviewed.. Continue same treatment. Continue with symptomatic treatment. Resume home medication. Monitor lytes and vitals. DVT and GI prophylaxis. Further recommendations depends on the clinical course of the patient DVT prophylaxis: no Subcutaneous heparin in view of hematoma GI Prophylaxis: Ppi PT/OT: Pending Prognosis is guarded
[2019-11-03 11:55] LABS: Glucose,Whole Blood 172 mg/dL (75-99)
--- NOTE | 2019-11-03 15:05 | P.PN ---
Subjective Progress Note Date: 11/03/19 CHIEF COMPLAINT: Intra-abdominal and pelvic hematoma HISTORY OF PRESENT ILLNESS: Patient presented to the hospital with abdominal pain and left flank pain. CAT scan had shown evidence of intra-abdominal and pelvic hematoma. Patient's hemoglobin is improving. Patient's hemoglobin is now up from 11.1-12.3. White count 6.9. She is afebrile. She does report some left flank pain. And some nausea this morning. She did have a bowel movement. She does report being hungry. PHYSICAL EXAM: VITAL SIGNS: Reviewed GENERAL: Well-developed in no acute distress. HEENT: No sclera icterus. Extraocular movements grossly intact. Moist buccal mucosa. Head is atraumatic, normocephalic. Hears conversational speech. No nasal drainage. NECK: Supple without lymphadenopathy. CHEST: Non-labored respirations and equal bilateral excursions. CARDIOVASCULAR: Palpable 2+ radial pulses. ABDOMEN: Soft. Nondistended. Nontender. Old incision sites are healing nicely. they're clean dry and intact. No evidence of ecchymosis MUSCULOSKELETAL: No clubbing or cyanosis. NEUROLOGIC: No focal or lateralizing signs. Cranial nerves II through XII grossly intact. PSYCH: Appropriate affect. Alert and oriented to person, place and time. SKIN: Well perfused. Good skin turgor. ASSESSMENT: 1. Intra-abdominal and pelvic hematoma 2. Left rectus sheath hematoma 3. Recent hospitalization with acute blood loss anemia secondary to intraperitoneal hematoma 4. History of leaving AGAINST MEDICAL ADVICE on last hospitalization 10/14/2019 5. History of noncompliance 6. Insulin-dependent diabetes mellitus type 2 7. Morbid obesity 8. Chronic kidney disease stage III 9. Essential hypertension with uncontrolled blood pressure 10. Status post cholecystectomy 10/06/2019 11. History of stroke in which patient had been on Plavix PLAN: -Recommend discontinuing Plavix due to patient having adverse reaction to this medication -Recommend starting an Aspirin -Advance diet to carb consistent, low fat diet Physician Sterile Process Tech note has been reviewed by physician. Signing provider agrees with the documented findings, assessment, and plan of care. Objective - Vital Signs Vital signs: Vital Signs Temp 98.0 F 11/03/19 04:00 Pulse 78 11/03/19 12:00 Resp 16 11/03/19 12:00 BP 169/70 11/03/19 12:00 Pulse Ox 95 11/03/19 08:00 Intake & Output 11/02/19 11/03/19 11/03/19 18:59 06:59 18:59 Intake Total 300 342 Output Total 250 Balance -250 300 342 Weight 128.5 kg Intake: Oral 300 342 Output: Urine 250 Other: Voiding Method Diaper Diaper Diaper Incontinent Incontinent Incontinent # Voids 1 2 # Bowel Movements 1 - Labs CBC & Chem 7: 11/03/19 07:11 11/01/19 13:15 Labs: Abnormal Lab Results - Last 24 Hours (Table) 11/02/19 11/02/19 11/02/19 Range/Units 07:27 16:51 20:20 POC Glucose (mg/dL) 142 H 212 H (75-99) mg/dL Hemoglobin A1c 7.1 H (4.0-6.0) % 11/03/19 11/03/19 11/03/19 Range/Units 06:07 06:20 11:53 POC Glucose (mg/dL) 57 L 68 L 172 H (75-99) mg/dL Hemoglobin A1c (4.0-6.0) %
[2019-11-03 16:48] LABS: Glucose,Whole Blood 138 mg/dL (75-99)
[2019-11-03 20:47] LABS: Glucose,Whole Blood 167 mg/dL (75-99)
[2019-11-03] MEDS ORDERED: INSULIN DETEMIR (LEVEMIR) 100 UNIT/ML SYR SQ SCH ×2 (21:00)
[2019-11-03] MEDS ORDERED: DONEPEZIL 5 MG TAB PO SCH (23:00)
--- NOTE | 2019-11-03 23:35 | P.CONS ---
History of Present Illness - Reason for Consult Consult date: 11/03/19 intra-abdominal hematoma - History of Present Illness The patient is a 64-year-old white female with multiple medical problems. She was admitted on 09/29/19 with abdominal pain and was found to have cholecystitis. It was confirmed on ultrasound, CT scan as well as MRI. The patient had a cholecystectomy. She was subsequently admitted on 10/09/19 the drop in hemoglobin into the 6-7 range (baseline normal in the 12-[address] scans showed evidence intra-abdominal hemorrhage in the right upper quadrants, as well as the pelvis. This was determined to be likely. Due to the patient having been on Plavix and Cymbalta. Patient was noted stable was blood transfusion. She left AGAINST MEDICAL ADVICE. She came back to the hospital this time complaining of high blood sugar and high blood pressure. On further questioning she also endorsed some left upper quadrant pain. Repeat CT scan showed persistent areas of intra- abdominal/intrapelvic hemorrhage which appear to be improved from before. However one collection in the pelvis appeared to show characteristics of more recent bleeding. Consult was therefore placed for further evaluation and recommendations Patient's hemoglobin was actually improved from her last discharge and was back into the 12 range. The patient is a poor historian because of memory loss since his stroke about 3 years ago. She was placed on Plavix at that time. She s tates that she resumed Plavix after her recent discharge. She denied any history suggestive of an underlying bleeding or clotting disorder. She has had bariatric surgery in the past as well as dental procedures without any problems. No history of any unusual bleeding or bruising otherwise. Review of Systems Constitutional: Reports fatigue Eyes: denies blurred vision, denies pain Ears: deny: decreased hearing, ear discharge, earache, tinnitus Ears, nose, mouth and throat: Denies headache, Denies sore throat Cardiovascular: Reports dyspnea on exertion Respiratory: Denies cough Gastrointestinal: Reports abdominal pain Genitourinary: Denies dysuria, Denies hematuria Menstruation: Reports postmenopausal Musculoskeletal: Reports muscle weakness Integumentary: Denies pruritus, Denies rash Neurological: Reports memory loss, Reports weakness (left upper and lower ex tremity weakness since stroke) Psychiatric: Reports memory loss Endocrine: Reports fatigue, Reports high blood sugars Hematologic/Lymphatic: Reports as per HPI Past Medical History Past Medical History: CVA/TIA, Diabetes Mellitus, GERD/Reflux, Hyperlipidemia, Hypertension, Renal Disease, Rheumatoid Arthritis (RA), Sleep Apnea/CPAP/BIPAP Additional Past Medical History / Comment(s): CKD stage 3, broken Lt foot 2011- no sx, stroke 2004 affected non dominant lt side . lt side weaker than rt", vertigo, neck pain, mini stroke nov 2016. EARL and she has not used CPAP, RA, HTN, GERD, DM2 , right big toe ulcer. 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 Year Discovered:: 02/24/19 MDRO Source:: Left Ear Past Surgical History: Breast Surgery, Cholecystectomy Additional Past Surgical History / Comment(s): breast biopsy, gastric sleeve 11/07/14, colonoscopy 04/14/14, bilateral cataract surgery Past Anesthesia/Blood Transfusion Reactions: Motion Sickness Past Psychological History: Depression Additional Psychological History / Comment(s): and lives with family home with her . 2 adult children. No tobacco or alcohol use. No experience. No international travel. Pet cats at home they are not new. Used to work in a care of handicapped persons Smoking Status: Never smoker Past Alcohol Use History: None Reported Past Drug Use History: None Reported - Past Family History Mother Family Medical History: Diabetes Mellitus Additional Family Medical History / Comment(s): heart attack, Brother of lung cancer 04/19/14 Father Family Medical History: Cancer Additional Family Medical History / Comment(s): lung cancer Brother(s) Family Medical History: Cancer Additional Family Medical History / Comment(s): LUNG Medications and Allergies Home Medications Medication Instructions Recorded Confirmed Type DULoxetine HCL [Cymbalta] 60 mg PO BID 09/30/13 11/01/19 History calcitrioL [Calcitriol] 0.5 mcg PO DAILY 09/30/13 10/09/19 History Topiramate [Topamax] 25 mg PO BID 07/06/16 11/01/19 History Atorvastatin [Lipitor] 40 mg PO DAILY 01/06/17 11/01/19 History carvediloL [Coreg*] 12.5 mg PO BID 04/06/18 11/01/19 History Insulin Glargine [Lantus] 32 unit SQ HS 06/05/18 11/01/19 History lisinopriL [Zestril] 2.5 mg PO DAILY 09/21/18 11/01/19 History INSULIN ASPART (NovoLOG) [NovoLOG 12 unit SQ AC-TID 09/29/19 11/01/19 History (formulary)] Pregabalin [Lyrica] 75 mg PO BID 09/29/19 11/01/19 History amLODIPine [Norvasc] 10 mg PO DAILY 09/29/19 10/09/19 History oxyCODONE-APAP 10-325MG [Percocet 1 tab PO QID PRN 09/29/19 11/01/19 History 10-325 mg] Pantoprazole [Protonix] 40 mg PO DAILY #30 tablet.dr 10/03/19 11/01/19 Rx Clopidogrel [Plavix] 75 mg PO DAILY 11/01/19 11/01/19 History Allergies Allergy/AdvReac Type Severity Reaction Status Date / Time No Known Allergies Allergy Verified 11/01/19 12:05 Physical Exam Vitals: Vital Signs Temp Pulse Resp BP Pulse Ox 11/03/19 20:06 98.1 F 58 L 17 160/63 11/03/19 20:00 98.4 F 65 17 165/83 94 L 11/03/19 16:00 98.5 F 55 L 16 177/71 11/03/19 12:00 78 16 169/70 11/03/19 10:56 16 11/03/19 08:00 66 16 166/75 95 11/03/19 04:00 98.0 F 60 18 123/72 93 L 11/02/19 23:43 61 18 11/02/19 23:42 98.5 F 61 18 166/72 93 L Intake and Output 11/03/19 11/03/19 11/04/19 14:59 22:59 06:59 Intake Total 342 100 Output Total 200 200 Balance 142 -100 Intake: Oral 342 100 Output: Urine 200 200 Other: Voiding Method Diaper Diaper Incontinent Incontinent # Voids 1 - Constitutional General appearance: no acute distress - EENT Eyes: EOMI, PERRLA ENT: hearing grossly normal, normal oropharynx - Neck Neck: no lymphadenopathy Thyroid: bilateral: normal size - Respiratory Respiratory: bilateral: CTA - Cardiovascular Rhythm: regular Heart sounds: normal: S1, S2 - Gastrointestinal General gastrointestinal: normal bowel sounds, soft Localized gastrointestinal: tender: LUQ (mild) - Integumentary Mild abdominal bruising at abdomen around the umbilicus. Resolving - Neurologic left upper and lower extremity weakness 4/5 Neurologic: CNII-XII intact - Musculoskeletal Musculoskeletal: left sided weakness - Psychiatric diminished recall Psychiatric: A&O x's 3 Results CBC & Chem 7: 11/03/19 07:11 11/01/19 13:15 Labs: Abnormal Lab Results - Last 24 Hours (Table) 11/03/19 11/03/19 11/03/19 Range/Units 06:07 06:20 11:53 POC Glucose (mg/dL) 57 L 68 L 172 H (75-99) mg/dL 11/03/19 11/03/19 Range/Units 16:41 20:22 POC Glucose (mg/dL) 138 H 167 H (75-99) mg/dL Comments: echocardiogram report reviewed Chest x-ray: report reviewed CT scan - abdomen: report reviewed CT scan - chest: report reviewed CT scan - pelvis: report reviewed US - abdomen: report reviewed MRI - abdomen: report reviewed Assessment and Plan (1) Abdominal hematoma Narrative/Plan: The patient's initial bleeding occurred post surgery. Agree with the clinical impression that this appeared to be related to platelet dysfunction from Plavix and Cymbalta use. Patient also has some intermittent renal dysfunction which could also contribute to platelet dysfunction The patient actually resumed her Plavix after leaving AGAINST MEDICAL ADVICE last admission. During this admission CT scans note decrease in most areas of previous collections. One area in the pelvis is similar in volume but CT scans notes characteristics of possible more recent bleeding. - However this is not felt to be significant as hemoglobin has actually improved and is almost back to baseline. Therefore the doesn't appear to be any clinical evidence of recurrent bleeding despite the patient resuming Plavix. - Check iron studies and recommended oral iron supplementation to hasten recovery of hemoglobin - Case discussed in detail with the surgical service. The patient's prior history as well as current clinical course is not suggestive of any underlying bleeding or clotting disorder. I therefore recommended that the patient for Plavix for about 2-3 weeks. At that time she can follow-up with the surgical service and have repeat CT scans done. If these are stable to improved, the patient can resume Plavix. Current Visit: Yes Status: Acute Code(s): S30.1XXA - CONTUSION OF ABDOMINAL WALL, INITIAL ENCOUNTER SNOMED Code(s): 720843810 Plan: Defer to the admitting service for management of her other medical problems
[2019-11-04] MEDS: ONDANSETRON 4 MG/2 ML VIAL IVP PRN ×2 (02:11→15:54)
[2019-11-04] MEDS: oxyCODONE-APAP 10-325MG 1 EACH TAB PO PRN (04:48)
[2019-11-04] MEDS: INSULIN ASPART (NovoLOG) 100 UNIT/ML VIAL SQ SCH ×3 (06:31→17:48)
[2019-11-04 06:38] LABS: Glucose,Whole Blood 159 mg/dL (75-99)
[2019-11-04 08:38] LABS: HCT 36.4 % (34.0-46.0); HGB 11.4 gm/dL (11.4-16.0); Hypochromasia Moderate; MCH 30.5 pg (25.0-35.0); MCHC 31.3 g/dL (31.0-37.0); MCV 97.4 fL (80.0-100.0); Mean Platelet Volume 7.7; Platelet Count 265 k/uL (150-450); RBC 3.74 m/uL (3.80-5.40); RDW 14.3 % (11.5-15.5)
[2019-11-04] MEDS ORDERED: amLODIPine 5 MG TAB PO SCH (09:00)
[2019-11-04] MEDS: PANTOPRAZOLE 40 MG/10 ML VIAL IV SCH (09:25)
[2019-11-04] MEDS: carvediloL 12.5 MG TAB PO SCH (09:25)
[2019-11-04] MEDS ORDERED: ATORVASTATIN 40 MG TAB PO SCH (10:45)
[2019-11-04] MEDS ORDERED: PREGABALIN 75 MG CAP PO SCH (10:45)
[2019-11-04] MEDS ORDERED: DULoxetine HCL 60 MG CAPSULE.DR PO SCH (10:45)
[2019-11-04] MEDS ORDERED: TOPIRAMATE 25 MG TAB PO SCH (10:45)
[2019-11-04 11:52] LABS: Glucose,Whole Blood 103 mg/dL (75-99)
--- NOTE | 2019-11-04 12:12 | P.PN ---
Subjective Progress Note Date: 11/04/19 CHIEF COMPLAINT: Intra-abdominal and pelvic hematoma HISTORY OF PRESENT ILLNESS: Patient presented to the hospital with abdominal pain and left flank pain. CAT scan had shown evidence of intra-abdominal and pelvic hematoma. Hemoglobin is 11.4 patient tolerating carb consistent, low-fat diet. Denies any new pain. She is afebrile. PHYSICAL EXAM: VITAL SIGNS: Reviewed GENERAL: Well-developed in no acute distress. HEENT: No sclera icterus. Extraocular movements grossly intact. Moist buccal mucosa. Head is atraumatic, normocephalic. Hears conversational speech. No nasal drainage. NECK: Supple without lymphadenopathy. CHEST: Non-labored respirations and equal bilateral excursions. CARDIOVASCULAR: Palpable 2+ radial pulses. ABDOMEN: Soft. Nondistended. Nontender. Old incision sites are healing nicely. they're clean dry and intact. MUSCULOSKELETAL: No clubbing or cyanosis. NEUROLOGIC: No focal or lateralizing signs. Cranial nerves II through XII grossly intact. PSYCH: Abnormal affect. Alert and oriented to person, place and time. SKIN: Well perfused. Good skin turgor. ASSESSMENT: 1. Intra-abdominal and pelvic hematoma 2. Left rectus sheath hematoma 3. Recent hospitalization with acute blood loss anemia secondary to intraperitoneal hematoma 4. History of leaving AGAINST MEDICAL ADVICE on last hospitalization 10/14/2019 5. History of noncompliance 6. Insulin-dependent diabetes mellitus type 2 7. Morbid obesity 8. Chronic kidney disease stage III 9. Essential hypertension with uncontrolled blood pressure 10. Status post cholecystectomy 10/06/2019 11. History of stroke in which patient had been on Plavix PLAN: -Recommend discontinuing Plavix due to patient having adverse reaction to this medication -Recommend starting an Aspirin -Hematology recommendations appreciated -Patient is surgically stable for discharge. -She is to follow up with Dr. Calero at the Bariatric center in one week Physician Ship Captain note has been reviewed by physician. Signing provider agrees with the documented findings, assessment, and plan of care. Objective - Vital Signs Vital signs: Vital Signs Temp 98.1 F 11/04/19 08:00 Pulse 57 L 11/04/19 08:00 Resp 17 11/04/19 04:00 BP 178/69 11/04/19 08:00 Pulse Ox 93 L 11/04/19 08:00 Intake & Output 09/11/04/19 11/04/19 18:59 06:59 18:59 Intake Total 442 0 Output Total 200 200 Balance 242 -200 Weight 127.8 kg Intake: Oral 442 0 Output: Urine 200 200 Other: Voiding Method Diaper Bedside Commode Incontinent Diaper # Voids 1 - Labs CBC & Chem 7: 11/04/19 07:21 11/01/19 13:15 Labs: Abnormal Lab Results - Last 24 Hours (Table) 11/03/19 11/03/19 11/04/19 Range/Units 16:41 20:22 06:19 RBC (3.80-5.40) m/uL POC Glucose (mg/dL) 138 H 167 H 159 H (75-99) mg/dL 11/04/19 11/04/19 Range/Units 07:21 11:51 RBC 3.74 L (3.80-5.40) m/uL POC Glucose (mg/dL) 103 H (75-99) mg/dL
[2019-11-04] MEDS ORDERED: amLODIPine 5 MG TAB PO STA (13:51)
[2019-11-04 16:28] LABS: % Iron Saturation 12.56 (12.00-45.00); Ferritin 513.4 ng/mL (10.0-291.0)
[2019-11-04 16:47] LABS: Glucose,Whole Blood 265 mg/dL (75-99)
[2019-11-04 17:08] VITALS: PULSE 63; RESP 18; TEMP 97.4
[2019-11-04] MEDS ORDERED: hydrALAZINE HCL 20 MG/ML 1 ML VIAL IVP STA (17:41)
[2019-11-04 18:25] VITALS: BP 211/91
--- NOTE | 2019-11-04 18:58 | P.PN ---
Subjective Progress Note Date: 11/04/19 Principal diagnosis: Abdominal Hematoma on Plavix Feeling good today, patient would like to go home. Plan is to stay off plavix for two weeks and reassess imaging of abdomen Objective - Vital Signs Vital signs: Vital Signs Temp 97.4 F L 11/04/19 16:00 Pulse 63 11/04/19 16:00 Resp 18 11/04/19 16:00 BP 211/91 11/04/19 17:30 Pulse Ox 97 11/04/19 12:00 Intake & Output 11/03/19 11/04/19 11/04/19 18:59 06:59 18:59 Intake Total 442 0 120 Output Total 200 200 300 Balance 242 -200 -180 Weight 127.8 kg Intake: Oral 442 0 120 Output: Urine 200 200 300 Other: Voiding Method Diaper Bedside Commode Incontinent Diaper # Voids 1 - Exam - Constitutional General appearance: no acute distress - EENT Eyes: EOMI, PERRLA ENT: hearing grossly normal, normal oropharynx - Neck Neck: no lymphadenopathy Thyroid: bilateral: normal size - Respiratory Respiratory: bilateral: CTA - Cardiovascular Rhythm: regular Heart sounds: normal: S1, S2 - Gastrointestinal General gastrointestinal: normal bowel sounds, soft Localized gastrointestinal: tender: LUQ (mild) - Integumentary Mild abdominal bruising at abdomen around the umbilicus. Resolving - Neurologic left upper and lower extremity weakness 4/5 Neurologic: CNII-XII intact - Musculoskeletal Musculoskeletal: left sided weakness - Psychiatric diminished recall Psychiatric: A&O x's 3 - Labs CBC & Chem 7: 11/04/19 07:21 11/01/19 13:15 Labs: Abnormal Lab Results - Last 24 Hours (Table) 11/03/19 11/04/19 11/04/19 Range/Units 20:22 06:19 07:21 RBC 3.74 L (3.80-5.40) m/uL POC Glucose (mg/dL) 167 H 159 H (75-99) mg/dL Iron (50-170) ug/dL TIBC (228-460) ug/dL Ferritin (10.0-291.0) ng/mL 11/04/19 11/04/19 11/04/19 Range/Units 07:21 11:51 16:45 RBC (3.80-5.40) m/uL POC Glucose (mg/dL) 103 H 265 H (75-99) mg/dL Iron 27 L (50-170) ug/dL TIBC 215 L (228-460) ug/dL Ferritin 513.4 H (10.0-291.0) ng/mL Assessment and Plan Plan: echocardiogram report reviewed Chest x-ray: report reviewed CT scan - abdomen: report reviewed CT scan - chest: report reviewed CT scan - pelvis: report reviewed US - abdomen: report reviewed MRI - abdomen: report reviewed Assessment and Plan Abdominal hematoma - The patient's initial bleeding occurred post surgery. Agree with the clinical impression that this appeared to be related to platelet dysfunction from Plavix and Cymbalta use. Patient also has some intermittent renal dysfunction which could also contribute to platelet dysfunction - The patient actually resumed her Plavix after leaving AGAINST MEDICAL ADVICE last admission. - During this admission CT scans note decrease in most areas of previous collections. One area in the pelvis is similar in volume but CT scans notes characteristics of possible more recent bleeding. - Iron studies do not show room for supportive iron supplementation ferritin >500 - Hold Plavix, minimum 2 weeks and re-imaging at that time to reassess abdominal hematoma. Patient states understanding. - Discussed with Dr. Salazar primary team
--- NOTE | 2019-11-04 22:33 | P.DS ---
Providers Date of admission: 11/01/19 15:42 Attending physician: Rolan Zimmer Consults: 11/01/19 15:42 Consult Physician Urgent Consulting Provider: Breann Calero Consult Reason/Comments: ab hematoma Do you want consulting provider notified?: Already Contacted 11/02/19 11:47 Consult Physician Urgent Consulting Provider: Aaron Dodge Consult Reason/Comments: abd hematoma Do you want consulting provider notified?: Yes Primary care physician: Mere Moreno Hospital Course: Diagnoses: Abdominal hematoma, with pelvis hematoma Acute blood loss anemia memory problem mal-Adherence to medication Elderly dementia, 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 Patient presents because of abdominal pain. Patient is poor historian, she has memory problems which she related to previous stroke. Patient states that she came to the hospital because of high blood sugar and high blood pressure, also she was stating she has some left upper quadrant abdominal pain, she could not remember for how long she has it,CT of the abdomen and pelvis:1. Multiple with intra-abdominal hematoma 2.Within the pelvis there is 8 x 5 cm of recent hemorrhage. 3. Small rectus sheath hematoma. Patient was taking Plavix only which was stopped, her symptoms remain stable. Patient is tolerating diet with no problem. Patient also found to have some memory problems, she scored 21/30 on the moca 8.1 version, Aricept was started for possible Alzheimer and vascular dementia. Hematology consult evaluated patient and recommended to hold Plavix for 2 weeks and recheck CAT scan of the abdomen and pelvis to make sure no more bleeding or hematoma and then Plavix can be restarted. I called PCP Dr. Moreno and updated him with the patient condition of these recommendation and he kindly took note of this to repeat CT of the abdomen and pelvis and possibly start Plavix after that. Problems and management plan were discussed with the patient and he verbalized understanding and acceptance Patient was found stable and can be discharged home however he needs follow-up as an outpatient. Patient was instructed to follow up with PCP within one week and patient agrees with the appointments made for her with Dr. Moreno on 11/10, patient also instructed to follow up with Dr. Barriga the surgeon in [address] dodge [facility] in 2 weeks and she agrees to make her appointments. Gen: patient is a AAOx3, no distress CVS: S1-S2, RRR, no murmur Lungs: B/L CTA, no wheezing Abdomen: soft, no distention, no tenderness, positive bowel sounds Extremity: no leg edema or induration Time spent more than 35 minutes Patient Condition at Discharge: Serious Plan - Discharge Summary Discharge Rx Participant: No New Discharge Prescriptions: New Donepezil [Aricept] 5 mg PO HS #30 tab Continue DULoxetine HCL [Cymbalta] 60 mg PO BID calcitrioL [Calcitriol] 0.5 mcg PO DAILY Topiramate [Topamax] 25 mg PO BID Atorvastatin [Lipitor] 40 mg PO DAILY carvediloL [Coreg*] 12.5 mg PO BID lisinopriL [Zestril] 2.5 mg PO DAILY amLODIPine [Norvasc] 10 mg PO DAILY INSULIN ASPART (NovoLOG) [NovoLOG (formulary)] 12 unit SQ AC-TID oxyCODONE-APAP 10-325MG [Percocet 10-325 mg] 1 tab PO QID PRN PRN Reason: Pain Pregabalin [Lyrica] 75 mg PO BID Pantoprazole [Protonix] 40 mg PO DAILY #30 tablet. Changed Insulin Glargine [Lantus] 28 unit SQ HS #0 Discontinued Clopidogrel [Plavix] 75 mg PO DAILY Discharge Medication List DULoxetine HCL [Cymbalta] 60 mg PO BID 09/30/13 [History] calcitrioL [Calcitriol] 0.5 mcg PO DAILY 09/30/13 [History] Topiramate [Topamax] 25 mg PO BID 07/06/16 [History] Atorvastatin [Lipitor] 40 mg PO DAILY 01/06/17 [History] carvediloL [Coreg*] 12.5 mg PO BID 04/06/18 [History] lisinopriL [Zestril] 2.5 mg PO DAILY 09/21/18 [History] INSULIN ASPART (NovoLOG) [NovoLOG (formulary)] 12 unit SQ AC-TID 09/29/19 [History] Pregabalin [Lyrica] 75 mg PO BID 09/29/19 [History] amLODIPine [Norvasc] 10 mg PO DAILY 09/29/19 [History] oxyCODONE-APAP 10-325MG [Percocet 10-325 mg] 1 tab PO QID PRN 09/29/19 [History] Pantoprazole [Protonix] 40 mg PO DAILY #30 tablet. 10/03/19 [Rx] Donepezil [Aricept] 5 mg PO HS #30 tab 11/04/19 [Rx] Insulin Glargine [Lantus] 28 unit SQ HS #0 11/04/19 [Rx] Follow up Appointment(s)/Referral(s): Aaron Dodge MD [STAFF PHYSICIAN] - 2 Weeks ([facility] ) Mere Moreno DO [Primary Care Provider] - 11/11/19 3:[facility] [place] - 11/11/19 Patient Instructions/Handouts: Chronic Hypertension (DC), Hematoma (ED) Activity/Diet/Wound Care/Special Instructions: heart healthy diet activity is limited till you see your doctor we recommend to hold plavix for 2 week, and follow up with your pcp and surgeon to repeat CT Scan of abdomen and plevis in 2 week, if no more bleeding then can resume either aspirin or plavix under supervision of your doctor Discharge Disposition: HOME SELF-CARE
== END 2019-11-04 19:37 | disposition home health service (06) | DRG 556 ==
LOC: EC 11:45 → 3SCARD 15:42
PROVIDERS: ADMIT Internal Medicine; ATTEND Internal Medicine
DX: M79.81 Nontraumatic hematoma of soft tissue (principal); D62 Acute posthemorrhagic anemia; D68.32 Hemorrhagic disorder due to extrinsic circulating anticoagulants; I69.354 Hemiplegia and hemiparesis following cerebral infarction affecting left non-dominant side; Z68.41 Body mass index [BMI] 40.0-44.9, adult; T45.525A Adverse effect of antithrombotic drugs, initial encounter; N18.3 Chronic kidney disease, stage 3 (moderate); G30.9 Alzheimer's disease, unspecified; F02.80 Dementia in other diseases classified elsewhere, unspecified severity, without behavioral disturbance, psychotic disturbance, mood disturbance, and anxiety; F01.50 Vascular dementia, unspecified severity, without behavioral disturbance, psychotic disturbance, mood disturbance, and anxiety; E11.22 Type 2 diabetes mellitus with diabetic chronic kidney disease; E11.65 Type 2 diabetes mellitus with hyperglycemia; E66.01 Morbid (severe) obesity due to excess calories; M06.9 Rheumatoid arthritis, unspecified; Z79.4 Long term (current) use of insulin; R58 Hemorrhage, not elsewhere classified; M62.89 Other specified disorders of muscle; E78.5 Hyperlipidemia, unspecified; F32.9 Major depressive disorder, single episode, unspecified; G89.29 Other chronic pain; I12.9 Hypertensive chronic kidney disease with stage 1 through stage 4 chronic kidney disease, or unspecified chronic kidney disease; I16.0 Hypertensive urgency; K21.9 Gastro-esophageal reflux disease without esophagitis; K59.00 Constipation, unspecified; G47.33 Obstructive sleep apnea (adult) (pediatric); M54.2 Cervicalgia; R32 Unspecified urinary incontinence; Z79.02 Long term (current) use of antithrombotics/antiplatelets; Z79.899 Other long term (current) drug therapy; Z98.42 Cataract extraction status, left eye; Z98.41 Cataract extraction status, right eye; Z98.84 Bariatric surgery status; Z90.49 Acquired absence of other specified parts of digestive tract; Z86.14 Personal history of Methicillin resistant Staphylococcus aureus infection; Z98.890 Other specified postprocedural states; Z87.19 Personal history of other diseases of the digestive system; Z87.898 Personal history of other specified conditions; Z83.3 Family history of diabetes mellitus; Z80.1 Family history of malignant neoplasm of trachea, bronchus and lung; Z82.49 Family history of ischemic heart disease and other diseases of the circulatory system
CPT/HCPCS: 36415; 74177; 80053; 81001; 82150; 82728; 83036; 83540; 83550; 83690; 85025; 85027; 85610; 85730; 96361; 96374; 96375; 96376; 99285

== ENCOUNTER → 2019-11-23 | Outpatient (CLI) | payer MEDICARE ==
--- NOTE | 2019-11-24 04:59 | CT ---
EXAMINATION TYPE: CT abdomen pelvis wo con DATE OF EXAM: 11/23/2019 COMPARISON: 11/01/2019, 10/08/2019 HISTORY: 64-year-old female Postprocedural hematoma of a digestive system organ. CT DLP: 1314.70 mGycm. Automated exposure control for dose reduction was used. TECHNIQUE: Contiguous axial scanning of the abdomen and pelvis without IV contrast. Coronal and sagit susan reconstructions performed. FINDINGS: Mild generalized anasarca change. Heart normal size without pericardial effusion. Dense mitral annular calcifications are present. Stra ndy atelectasis in the lung bases. There is a small to moderate size hiatal hernia with postsurgical change of sleeve gastrectomy. Post surgical change of cholecystectomy. 5.4 x 3.4 cm elliptical intermediate attenuating lesion posterior margin of the right liver lobe has decreased in size, previously measuring 7.3 x 4.7 cm. Overall attenuation is similar. Another intermediate density collection along the inferior hepatorenal recess in the right upper quad rant currently measures 3.5 x 2.3 x 4.8 cm (axial image 45 and coronal image 46). On 11/01/2019, this measured 4.0 x 3.9 x 6.3 cm. On 10/08/2019, this measured 6.3 x 5.7 x 8.4 cm. 3.0 x 1.5 cm hypodense lesion along the gallbladder fossa versus 3.6 x 2.2 cm, previously. Aside from the right posterior subcapsular versus pericapsular lesion mentioned above, no additional focal liver lesion by noncontrast CT. Adrenal glands, kidneys, spleen appear show no gross abnormality by noncontrast CT. Pancreas is atrop hic. Suspect some scarring along the left anterior mid abdominal wall extending from the skin surface down to the abdominal wall musculature. No dilated small bowel or free air. Scattered moderate stool. No pericolonic inflammatory change. Bladder is nondistended. Uterus anteverted. Ovaries are visualized. Pelvic phleboliths and vascular c alcifications. Small amount of intermediate attenuation cul-de-sac fluid remains, decreased from prio r. Bones: Moderate to advanced degenerative disc disease throughout the lower thoracic and lumbar spine. Facet arthropathy mid to lower lumbar spine. IMPRESSION: 1. Post cholecystectomy change with 3 intermediate attenuating fluid collections/hematomas in the ri ght upper quadrant which continue to decrease in size, largest currently measures 5.4 cm versus 7.3 c m, previously. No new hematoma is identified. 2. Decreasing, now small amount of residual hemorrhagic cul-de-sac fluid. 3. Status post sleeve gastrectomy with a small to moderate sized hiatal hernia redemonstrated.
== END | disposition home or self-care (01) ==
LOC: RADCTMAIN 18:18
PROVIDERS: ATTEND Family Medicine
DX: K91.870 Postprocedural hematoma of a digestive system organ or structure following a digestive system procedure (principal); K44.9 Diaphragmatic hernia without obstruction or gangrene; R58 Hemorrhage, not elsewhere classified; Z90.49 Acquired absence of other specified parts of digestive tract; Z98.84 Bariatric surgery status
CPT/HCPCS: 74176

== ENCOUNTER 2020-06-25 02:11 | Emergency (ER) | payer MEDICARE ==
[2020-06-25 02:19] VITALS: RESP 18; TEMP 97.6
[2020-06-25 02:40] LABS: Glucose,Whole Blood 62 mg/dL (75-99)
[2020-06-25 03:13] LABS: Glucose,Whole Blood 61 mg/dL (75-99)
[2020-06-25 03:19] LABS: Basophils % (A) 0 %; Eosinophils # (A) 0.2 k/uL (0-0.7); Eosinophils % (A) 2 %; HCT 36.3 % (34.0-46.0); HGB 11.3 gm/dL (11.4-16.0); Lymphocytes % (A) 11 %; MCH 30.1 pg (25.0-35.0); MCHC 31.2 g/dL (31.0-37.0); MCV 96.5 fL (80.0-100.0); Mean Platelet Volume 7.9; Monocytes # (A) 0.6 k/uL (0-1.0); Monocytes % (A) 7 %; Neutrophils # (A) 7.1 k/uL (1.3-7.7); Neutrophils % (A) 80 %; Platelet Count 221 k/uL (150-450); RBC 3.76 m/uL (3.80-5.40); RDW 14.6 % (11.5-15.5); WBC 8.9 k/uL (3.8-10.6)
[2020-06-25 03:28] LABS: Calcium 8.9 mg/dL (8.4-10.2); Potassium 3.8 mmol/L (3.5-5.1)
[2020-06-25 03:41] LABS: Glucose,Whole Blood 81 mg/dL (75-99)
[2020-06-25 04:29] LABS: Glucose,Whole Blood 108 mg/dL (75-99)
[2020-06-25 05:35] LABS: Glucose,Whole Blood 100 mg/dL (75-99)
--- NOTE | 2020-06-25 05:36 | ED ---
Recheck HPI - General Chief Complaint: Recheck/Abnormal Lab/Rx Stated Complaint: Hypoglycemic Time Seen by Provider: 06/25/20 02:20 Source: EMS Mode of arrival: EMS - History of Present Illness Initial Comments: This patient is 65-year-old woman who presents to be evaluated for suspected hypoglycemia. The patient's family called EMS after she was disoriented, confused and weak. Blood sugar was found to be low, she was given D50 and then became more appropriate. When I interview the patient she denies complaints. MD Complaint: other (Hypoglycemia) -: minutes(s) Context: other Associated Symptoms: other - Related Data Home Medications Medication Instructions Recorded Confirmed DULoxetine HCL [Cymbalta] 60 mg PO BID 09/30/13 11/01/19 calcitrioL [Calcitriol] 0.5 mcg PO DAILY 09/30/13 10/09/19 Topiramate [Topamax] 25 mg PO BID 07/06/16 11/01/19 Atorvastatin [Lipitor] 40 mg PO DAILY 01/06/17 11/01/19 carvediloL [Coreg*] 12.5 mg PO BID 04/06/18 11/01/19 lisinopriL [Zestril] 2.5 mg PO DAILY 09/21/18 11/01/19 INSULIN ASPART (NovoLOG) [NovoLOG 12 unit SQ AC-TID 09/29/19 11/01/19 (formulary)] Pregabalin [Lyrica] 75 mg PO BID 09/29/19 11/01/19 amLODIPine [Norvasc] 10 mg PO DAILY 09/29/19 10/09/19 oxyCODONE-APAP 10-325MG [Percocet 1 tab PO QID PRN 09/29/19 11/01/19 10-325 mg] Previous Rx's Medication Instructions Recorded Pantoprazole [Protonix] 40 mg PO DAILY #30 tablet. 10/03/19 Donepezil [Aricept] 5 mg PO HS #30 tab 11/04/19 Insulin Glargine [Lantus] 28 unit SQ HS #0 11/04/19 Allergies Allergy/AdvReac Type Severity Reaction Status Date / Time No Known Allergies Allergy Verified 11/01/19 12:05 Review of Systems ROS Statement: Those systems with pertinent positive or pertinent negative responses have been documented in the HPI. ROS Other: All systems not noted in ROS Statement are negative. Constitutional: Reports: weakness (Generalized). Denies: fever, chills Eyes: Denies: vision change Respiratory: Denies: cough, dyspnea Cardiovascular: Denies: chest pain, palpitations Gastrointestinal: Denies: abdominal pain, vomiting, diarrhea Genitourinary: Denies: dysuria Musculoskeletal: Denies: back pain Skin: Denies: rash Neurological: Denies: headache, weakness, numbness Past Medical History Past Medical History: CVA/TIA, Diabetes Mellitus, GERD/Reflux, Hyperlipidemia, Hypertension, Renal Disease, Rheumatoid Arthritis (RA), Sleep Apnea/CPAP/BIPAP Additional Past Medical History / Comment(s): CKD stage 3, broken Lt foot 2011- no sx, stroke 2004 affected non dominant lt side . lt side weaker than rt", vertigo, neck pain, mini stroke nov 2016. EARL and she has not used CPAP, RA, HTN, GERD, DM2 , right big toe ulcer. 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 Date of last positivie culture/infection: 02/24/19 MDRO Source:: Left Ear Past Surgical History: Breast Surgery, Cholecystectomy Additional Past Surgical History / Comment(s): breast biopsy, gastric sleeve 11/07/14, colonoscopy 04/14/14, bilateral cataract surgery Past Anesthesia/Blood Transfusion Reactions: Motion Sickness Past Psychological History: Depression Smoking Status: Never smoker Past Alcohol Use History: None Reported Past Drug Use History: None Reported - Past Family History Mother Family Medical History: Diabetes Mellitus Additional Family Medical History / Comment(s): heart attack, Brother of lung cancer 04/19/14 Father Family Medical History: Cancer Additional Family Medical History / Comment(s): lung cancer Brother(s) Family Medical History: Cancer Additional Family Medical History / Comment(s): LUNG General Exam General appearance: alert, in no apparent distress Head exam: Present: atraumatic, normocephalic Eye exam: Present: normal appearance. Absent: scleral icterus, conjunctival injection ENT exam: Present: normal oropharynx Neck exam: Present: normal inspection, full ROM Respiratory exam: Present: normal lung sounds bilaterally. Absent: respiratory distress, wheezes, rales, rhonchi, stridor Cardiovascular Exam: Present: regular rate, normal rhythm, normal heart sounds. Absent: systolic murmur, diastolic murmur, rubs, gallop GI/Abdominal exam: Present: soft. Absent: distended, tenderness, guarding, rebound, rigid, mass Extremities exam: Present: normal inspection, normal capillary refill. Absent: pedal edema, calf tenderness Neurological exam: Present: alert. Absent: motor sensory deficit Skin exam: Present: warm, dry, intact, normal color. Absent: rash Course Vital Signs 06/25/20 06/25/20 06/25/20 02:14 04:28 05:57 Temperature 97.6 F Pulse Rate 74 66 78 Respiratory 18 18 18 Rate Blood Pressure 92/76 140/60 135/68 O2 Sat by Pulse 97 96 98 Oximetry Medical Decision Making - Lab Data Result diagrams: 06/25/20 02:49 06/25/20 02:49 Lab Results 06/25/20 06/25/20 06/25/20 Range/Units 02:13 02:49 02:49 WBC 8.9 (3.8-10.6) k/uL RBC 3.76 L (3.80-5.40) m/uL Hgb 11.3 L (11.4-16.0) gm/dL Hct 36.3 (34.0-46.0) % MCV 96.5 (80.0-100.0) fL MCH 30.1 (25.0-35.0) pg MCHC 31.2 (31.0-37.0) g/dL RDW 14.6 (11.5-15.5) % Plt Count 221 (150-450) k/uL MPV 7.9 Neutrophils % 80 % Lymphocytes % 11 % Monocytes % 7 % Eosinophils % 2 % Basophils % 0 % Neutrophils # 7.1 (1.3-7.7) k/uL Lymphocytes # 1.0 (1.0-4.8) k/uL Monocytes # 0.6 (0-1.0) k/uL Eosinophils # 0.2 (0-0.7) k/uL Basophils # 0.0 (0-0.2) k/uL Sodium 142 (137-145) mmol/L Potassium 3.8 (3.5-5.1) mmol/L Chloride 108 H (98-107) mmol/L Carbon Dioxide 24 (22-30) mmol/L Anion Gap 10 mmol/L BUN 49 H (7-17) mg/dL Creatinine 1.64 H (0.52-1.04) mg/dL Est GFR (CKD-EPI)AfAm 37 (>60 ml/min/1.73 sqM) Est GFR (CKD-EPI)NonAf 32 (>60 ml/min/1.73 sqM) Glucose 47 L* (74-99) mg/dL POC Glucose (mg/dL) 62 L (75-99) mg/dL POC Glu Customer Experience Manager ID Jacey Madrigal Calcium 8.9 (8.4-10.2) mg/dL 06/25/20 06/25/20 06/25/20 Range/Units 02:53 03:40 04:27 WBC (3.8-10.6) k/uL RBC (3.80-5.40) m/uL Hgb (11.4-16.0) gm/dL Hct (34.0-46.0) % MCV (80.0-100.0) fL MCH (25.0-35.0) pg MCHC (31.0-37.0) g/dL RDW (11.5-15.5) % Plt Count (150-450) k/uL MPV Neutrophils % % Lymphocytes % % Monocytes % % Eosinophils % % Basophils % % Neutrophils # (1.3-7.7) k/uL Lymphocytes # (1.0-4.8) k/uL Monocytes # (0-1.0) k/uL Eosinophils # (0-0.7) k/uL Basophils # (0-0.2) k/uL Sodium (137-145) mmol/L Potassium (3.5-5.1) mmol/L Chloride (98-107) mmol/L Carbon Dioxide (22-30) mmol/L Anion Gap mmol/L BUN (7-17) mg/dL Creatinine (0.52-1.04) mg/dL Est GFR (CKD-EPI)AfAm (>60 ml/min/1.73 sqM) Est GFR (CKD-EPI)NonAf (>60 ml/min/1.73 sqM) Glucose (74-99) mg/dL POC Glucose (mg/dL) 61 L 81 108 H (75-99) mg/dL POC Glu Customer Experience Manager ID Barbie Gresham, Barbie Stahl Calcium (8.4-10.2) mg/dL 06/25/20 Range/Units 05:33 WBC (3.8-10.6) k/uL RBC (3.80-5.40) m/uL Hgb (11.4-16.0) gm/dL Hct (34.0-46.0) % MCV (80.0-100.0) fL MCH (25.0-35.0) pg MCHC (31.0-37.0) g/dL RDW (11.5-15.5) % Plt Count (150-450) k/uL MPV Neutrophils % % Lymphocytes % % Monocytes % % Eosinophils % % Basophils % % Neutrophils # (1.3-7.7) k/uL Lymphocytes # (1.0-4.8) k/uL Monocytes # (0-1.0) k/uL Eosinophils # (0-0.7) k/uL Basophils # (0-0.2) k/uL Sodium (137-145) mmol/L Potassium (3.5-5.1) mmol/L Chloride (98-107) mmol/L Carbon Dioxide (22-30) mmol/L Anion Gap mmol/L BUN (7-17) mg/dL Creatinine (0.52-1.04) mg/dL Est GFR (CKD-EPI)AfAm (>60 ml/min/1.73 sqM) Est GFR (CKD-EPI)NonAf (>60 ml/min/1.73 sqM) Glucose (74-99) mg/dL POC Glucose (mg/dL) 100 H (75-99) mg/dL POC Glu Customer Experience Manager ID Barbie Gresham Calcium (8.4-10.2) mg/dL - EKG Data -: EKG Interpreted by Hi EKG shows normal: sinus rhythm, intervals (Normal), ST-T waves (Normal) Rate: normal (Rate 74 bpm) Interpretation: other (Possible old anterolateral infarct) Disposition Clinical Impression: Hypoglycemia Disposition: HOME SELF-CARE Condition: Good Instructions (If sedation given, give patient instructions): Hypoglycemia in a Person with Diabetes (ED) Is patient prescribed a controlled substance at d/c from ED?: No Referrals: Mere Rodriguez, [Primary Care Provider] - 1-2 days
[2020-06-25 05:58] VITALS: BP 135/68; PULSE 78
== END 2020-06-25 07:37 | disposition home or self-care (01) ==
LOC: EC 02:11
DX: E11.649 Type 2 diabetes mellitus with hypoglycemia without coma (principal); I12.9 Hypertensive chronic kidney disease with stage 1 through stage 4 chronic kidney disease, or unspecified chronic kidney disease; E11.22 Type 2 diabetes mellitus with diabetic chronic kidney disease; N18.30 Chronic kidney disease, stage 3 unspecified; F32.9 Major depressive disorder, single episode, unspecified; M06.9 Rheumatoid arthritis, unspecified; E78.5 Hyperlipidemia, unspecified; K21.9 Gastro-esophageal reflux disease without esophagitis; G47.33 Obstructive sleep apnea (adult) (pediatric); Z79.4 Long term (current) use of insulin; Z86.73 Personal history of transient ischemic attack (TIA), and cerebral infarction without residual deficits
CPT/HCPCS: 36415; 80048; 85025; 93005; 99285

== ENCOUNTER 2021-06-30 20:13 | Observation (INO) | payer MEDICARE ==
[2021-06-30] MEDS ORDERED: SODIUM CHLORIDE 0.9% 1,000 ML IV STA (21:19)
--- NOTE | 2021-06-30 21:21 | ED ---
General Adult HPI - General Chief complaint: Weakness Stated complaint: Possible UTI-Sent by Dr. Rodriguez Time Seen by Provider: 06/30/21 21:03 Source: patient, RN notes reviewed Mode of arrival: wheelchair - History of Present Illness Initial comments: 66-year-old female presents to the emergency department accompanied by her spouse for evaluation of generalized weakness. Patient's spouse states the patient is typically able to ambulate with a walker, but was unable to even get up out of bed this evening due to weakness and fatigue. Patient's spouse states she has had fluctuating blood sugars throughout the day and has not eaten since noon. There is concern for possible UTI; spouse states she wears a depends and is incontinent due to impaired mobility more than anything. Denies fever, chills, headache, dizziness, chest pain, shortness of breath, cough, abdominal pain, nausea, vomiting, diarrhea, and dysuria. - Related Data Home Medications Medication Instructions Recorded Confirmed DULoxetine HCL [Cymbalta] 60 mg PO BID 09/30/13 07/01/21 calcitrioL [Calcitriol] 0.5 mcg PO DAILY 09/30/13 07/01/21 Topiramate [Topamax] 25 mg PO BID 07/06/16 07/01/21 Atorvastatin [Lipitor] 40 mg PO DAILY 01/06/17 07/01/21 carvediloL [Coreg*] 12.5 mg PO BID 04/06/18 07/01/21 INSULIN ASPART (NovoLOG) [NovoLOG 12 unit SQ AC-TID 09/29/19 07/01/21 (formulary)] Pregabalin [Lyrica] 75 mg PO BID 09/29/19 07/01/21 amLODIPine [Norvasc] 10 mg PO DAILY 09/29/19 07/01/21 oxyCODONE-APAP 10-325MG [Percocet 1 tab PO Q6H PRN 09/29/19 07/01/21 10-325 mg] Aspirin EC [Ecotrin Low Dose] 81 mg PO DAILY 07/01/21 07/01/21 Insulin Glargine,Hum.rec.anlog 28 unit SQ HS 07/01/21 07/01/21 [Lantus Solostar Pen] Nystatin 100,000Unit/gm Cream 1 applic TOPICAL BID PRN 07/01/21 07/01/21 [Mycostatin Cream] Nystatin [Nystop] 1 applic TOPICAL BID PRN 07/01/21 07/01/21 Potassium Chloride [Potassium 10 meq PO DAILY 07/01/21 07/01/21 Chloride ER] SILVER sulfADIAZINE Cream 1 applic TOPICAL BID 07/01/21 07/01/21 [Silvadene 1% Cream] Previous Rx's Medication Instructions Recorded Cefuroxime Axetil [Ceftin] 500 mg PO BID 3 Days #6 tab 07/02/21 Furosemide [Lasix] 20 mg PO DAILY PRN #0 07/02/21 Omeprazole 20 mg PO DAILY #30 cap 07/02/21 Allergies Allergy/AdvReac Type Severity Reaction Status Date / Time No Known Allergies Allergy Verified 07/01/21 07:19 Review of Systems ROS Statement: Those systems with pertinent positive or pertinent negative responses have been documented in the HPI. ROS Other: All systems not noted in ROS Statement are negative. Past Medical History Past Medical History: CVA/TIA, Diabetes Mellitus, GERD/Reflux, Hyperlipidemia, Hypertension, Renal Disease, Rheumatoid Arthritis (RA), Sleep Apnea/CPAP/BIPAP Additional Past Medical History / Comment(s): CKD stage 3, broken Lt foot 2011- no sx, stroke 2004 affected non dominant lt side . lt side weaker than rt", vertigo, neck pain, mini stroke nov 2016. EARL and she has not used CPAP, RA, HTN, GERD, DM2 , right big toe ulcer. 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 Date of last positivie culture/infection: 09/27/20 MDRO Source:: LEG MRSA Past Surgical History: Breast Surgery, Cholecystectomy Additional Past Surgical History / Comment(s): breast biopsy, gastric sleeve 11/07/14, colonoscopy 04/14/14, bilateral cataract surgery Past Anesthesia/Blood Transfusion Reactions: Motion Sickness Past Psychological History: Depression Smoking Status: Never smoker Past Alcohol Use History: None Reported Past Drug Use History: None Reported - Past Family History Mother Family Medical History: Diabetes Mellitus Additional Family Medical History / Comment(s): heart attack, Brother of lung cancer 04/19/14 Father Family Medical History: Cancer Additional Family Medical History / Comment(s): lung cancer Brother(s) Family Medical History: Cancer Additional Family Medical History / Comment(s): LUNG General Exam Limitations: altered mental status General appearance: alert, in no apparent distress (Well-developed, well- nourished female in no acute distress. Initial temperature 100.9, pulse 103, respirations 18, blood pressure 148/62, pulse ox 97% on room air.) Eye exam: Present: normal appearance, PERRL, EOMI. Absent: scleral icterus, conjunctival injection, periorbital swelling ENT exam: Present: mucous membranes dry Neck exam: Present: normal inspection, full ROM. Absent: tenderness, meningismus, lymphadenopathy Respiratory exam: Present: normal lung sounds bilaterally. Absent: respiratory distress, wheezes, rales, rhonchi, stridor, chest wall tenderness Cardiovascular Exam: Present: regular rate, normal rhythm, tachycardia, normal heart sounds. Absent: systolic murmur, diastolic murmur, rubs, gallop, clicks GI/Abdominal exam: Present: soft, normal bowel sounds, other (Very large abdominal habitus). Absent: distended, tenderness, guarding, rebound, rigid Extremities exam: Present: other (bilateral lower extremity edema is baseline for patient per spouse) Neurological exam: Present: other Expanded Patient oriented to: Present: person, place. Absent: time Speech: Present: fluid speech Cranial nerves: EOM's Intact: Normal, Tongue Deviation: Normal Cerebellar function: Finger to Nose: Normal Motor strength exam: RUE: 4, LUE: 4, RLE: 4, LLE: 4 Eye Response: (4) open spontaneously Motor Response: (6) obeys commands Verbal Response: (4) confused conversation [place] Total: 14 Psychiatric exam: Present: flat affect Skin exam: Present: warm, dry, intact, normal color. Absent: rash Course Vital Signs 06/30/21 06/30/21 07/01/21 20:39 21:15 05:56 Temperature 100.9 F H 99.2 F 98.3 F Pulse Rate 103 H 106 H 81 Pulse Rate [ 106 H [employer] ] Respiratory 18 16 18 Rate Blood Pressure 148/62 125/69 140/61 O2 Sat by Pulse 97 100 94 L Oximetry 07/01/21 09:00 Temperature Pulse Rate 76 Pulse Rate [ [employer] ] Respiratory 18 Rate Blood Pressure 148/54 O2 Sat by Pulse 94 L Oximetry - Reevaluation(s) Reevaluation #1: 06/30/21 21:30 Upon exam, there is concern for possible sepsis given patient's elevated temperature and heart rate along with suspected UTI, however, due to concerns of fluid volume overload, patient will be given IV fluids at maintenance rate and will await laboratory results. 06/30/21 22:30 Continue to await results from blood work. Urinalysis confirms UTI. Patient appears somewhat improved. She is sitting up right and is tolerating oral intake. Lung sounds CTA. Remains mildly tachycardic. Spouse is presents at bedside and is asking about admission. Explained POC. 06/30/21 23:30 Upon reevaluation, patient appears improved. She is more alert and is answering questions appropriately. Temperature and heart rate have improved. Explained findings of urinary tract infection and elevated white blood cell count; discussed admission to the hospital with patient and she is agreeable with this plan of care. 06/30/21 23:38 I spoke with Evelyn Theodore NP who agrees to accept this admission on behalf of [facility]. Medical Decision Making - Medical Decision Making This is a 66-year-old female with a past medical history of T2D, hypertension, significant bilateral lymphedema, prior CVA, and CKD who presents to the emergency department upon the recommendation of her home caregiver for evaluation of possible UTI. Patient's spouse reports patient has had increased generalized weakness today. Upon exam, patient is alert and oriented to person and place, however not time. She is able to follow commands and answer questions, albeit slowly. He is slightly pale and is warm to touch. She was initially slightly febrile and mildly tachycardic. Due to concerns of fluid volume overload, bolus was inflated and patient was given fluids at maintenance rate. Chest x-ray shows atelectasis versus mild interstitial edema. Laboratory studies were obtained confirming presence of UTI and an elevated white blood cell count (21.5). BUN and creatinine are elevated consistent with history of CKD. Patient was given Rocephin while present in the emergency department. Upon reassessment, she is significantly improved- she is tolerating oral intake, sitting upright watching tv, and is readily engaged in conversation. Given her initial presentation and physical exam findings, she will be admitted to the hospital for further evaluation and treatment. Attending: Juan. - Lab Data Result diagrams: 07/02/21 05:28 07/02/21 05:28 Lab Results 06/30/21 06/30/21 06/30/21 Range/Units 21:46 21:46 22:36 WBC 21.5 H (3.8-10.6) k/uL RBC 3.91 (3.80-5.40) m/uL Hgb 12.2 (11.4-16.0) gm/dL Hct 39.4 (34.0-46.0) % MCV 100.7 H (80.0-100.0) fL MCH 31.2 (25.0-35.0) pg MCHC 31.0 (31.0-37.0) g/dL RDW 13.4 (11.5-15.5) % Plt Count 218 (150-450) k/uL MPV 8.2 Neutrophils % 94 % Lymphocytes % 2 % Monocytes % 3 % Eosinophils % 1 % Basophils % 0 % Neutrophils # 20.1 H (1.3-7.7) k/uL Lymphocytes # 0.3 L (1.0-4.8) k/uL Monocytes # 0.6 (0-1.0) k/uL Eosinophils # 0.3 (0-0.7) k/uL Basophils # 0.0 (0-0.2) k/uL Hypochromasia Slight PT (9.0-12.0) sec INR (<1.2) APTT (22.0-30.0) sec Sodium (137-145) mmol/L Potassium (3.5-5.1) mmol/L Chloride (98-107) mmol/L Carbon Dioxide (22-30) mmol/L Anion Gap mmol/L BUN (7-17) mg/dL Creatinine (0.52-1.04) mg/dL Est GFR (CKD-EPI)AfAm (>60 ml/min/1.73 sqM) Est GFR (CKD-EPI)NonAf (>60 ml/min/1.73 sqM) Glucose (74-99) mg/dL Plasma Lactic Acid Flex (0.7-2.0) mmol/L Calcium (8.4-10.2) mg/dL Magnesium (1.6-2.3) mg/dL Total Bilirubin (0.2-1.3) mg/dL AST (14-36) U/L ALT (4-34) U/L Alkaline Phosphatase (38-126) U/L Troponin I (0.000-0.034) ng/mL NT-Pro-B Natriuret Pep pg/mL Total Protein (6.3-8.2) g/dL Albumin (3.5-5.0) g/dL Urine Color Light Yellow Urine Appearance Cloudy H (Clear) Urine pH 6.5 (5.0-8.0) Ur Specific [place] 1.014 (1.001-1.035) Urine Protein Trace H (Negative) Urine Glucose (UA) 2+ H (Negative) Urine Ketones 1+ H (Negative) Urine Blood Small H (Negative) Urine Nitrite Negative (Negative) Urine Bilirubin Negative (Negative) Urine Urobilinogen <2.0 (<2.0) mg/dL Ur Leukocyte Esterase Large H (Negative) Urine RBC 7 H (0-5) /hpf Urine WBC >182 H (0-5) /hpf Urine WBC Clumps Few H (None) /hpf Ur Squamous Epith Cells 1 (0-4) /hpf Urine Bacteria Many H (None) /hpf Urine Mucus Rare H (None) /hpf Coronavirus (PCR) Not Detected (Not Detectd) 06/30/21 06/30/21 06/30/21 Range/Units 22:36 22:36 22:36 WBC (3.8-10.6) k/uL RBC (3.80-5.40) m/uL Hgb (11.4-16.0) gm/dL Hct (34.0-46.0) % MCV (80.0-100.0) fL MCH (25.0-35.0) pg MCHC (31.0-37.0) g/dL RDW (11.5-15.5) % Plt Count (150-450) k/uL MPV Neutrophils % % Lymphocytes % % Monocytes % % Eosinophils % % Basophils % % Neutrophils # (1.3-7.7) k/uL Lymphocytes # (1.0-4.8) k/uL Monocytes # (0-1.0) k/uL Eosinophils # (0-0.7) k/uL Basophils # (0-0.2) k/uL Hypochromasia PT 11.0 (9.0-12.0) sec INR 1.0 (<1.2) APTT 28.3 (22.0-30.0) sec Sodium 138 (137-145) mmol/L Potassium 4.6 (3.5-5.1) mmol/L Chloride 103 (98-107) mmol/L Carbon Dioxide 26 (22-30) mmol/L Anion Gap 9 mmol/L BUN 43 H (7-17) mg/dL Creatinine 1.64 H (0.52-1.04) mg/dL Est GFR (CKD-EPI)AfAm 37 (>60 ml/min/1.73 sqM) Est GFR (CKD-EPI)NonAf 32 (>60 ml/min/1.73 sqM) Glucose 273 H (74-99) mg/dL Plasma Lactic Acid Flex 1.8 (0.7-2.0) mmol/L Calcium 9.1 (8.4-10.2) mg/dL Magnesium 1.9 (1.6-2.3) mg/dL Total Bilirubin 0.6 (0.2-1.3) mg/dL AST 25 (14-36) U/L ALT 16 (4-34) U/L Alkaline Phosphatase 123 (38-126) U/L Troponin I (0.000-0.034) ng/mL NT-Pro-B Natriuret Pep pg/mL Total Protein 7.1 (6.3-8.2) g/dL Albumin 4.0 (3.5-5.0) g/dL Urine Color Urine Appearance (Clear) Urine pH (5.0-8.0) Ur Specific [place] (1.001-1.035) Urine Protein (Negative) Urine Glucose (UA) (Negative) Urine Ketones (Negative) Urine Blood (Negative) Urine Nitrite (Negative) Urine Bilirubin (Negative) Urine Urobilinogen (<2.0) mg/dL Ur Leukocyte Esterase (Negative) Urine RBC (0-5) /hpf Urine WBC (0-5) /hpf Urine WBC Clumps (None) /hpf Ur Squamous Epith Cells (0-4) /hpf Urine Bacteria (None) /hpf Urine Mucus (None) /hpf Coronavirus (PCR) (Not Detectd) 06/30/21 06/30/21 Range/Units 22:36 22:36 WBC (3.8-10.6) k/uL RBC (3.80-5.40) m/uL Hgb (11.4-16.0) gm/dL Hct (34.0-46.0) % MCV (80.0-100.0) fL MCH (25.0-35.0) pg MCHC (31.0-37.0) g/dL RDW (11.5-15.5) % Plt Count (150-450) k/uL MPV Neutrophils % % Lymphocytes % % Monocytes % % Eosinophils % % Basophils % % Neutrophils # (1.3-7.7) k/uL Lymphocytes # (1.0-4.8) k/uL Monocytes # (0-1.0) k/uL Eosinophils # (0-0.7) k/uL Basophils # (0-0.2) k/uL Hypochromasia PT (9.0-12.0) sec INR (<1.2) APTT (22.0-30.0) sec Sodium (137-145) mmol/L Potassium (3.5-5.1) mmol/L Chloride (98-107) mmol/L Carbon Dioxide (22-30) mmol/L Anion Gap mmol/L BUN (7-17) mg/dL Creatinine (0.52-1.04) mg/dL Est GFR (CKD-EPI)AfAm (>60 ml/min/1.73 sqM) Est GFR (CKD-EPI)NonAf (>60 ml/min/1.73 sqM) Glucose (74-99) mg/dL Plasma Lactic Acid Flex (0.7-2.0) mmol/L Calcium (8.4-10.2) mg/dL Magnesium (1.6-2.3) mg/dL Total Bilirubin (0.2-1.3) mg/dL AST (14-36) U/L ALT (4-34) U/L Alkaline Phosphatase (38-126) U/L Troponin I 0.031 (0.000-0.034) ng/mL NT-Pro-B Natriuret Pep 1370 pg/mL Total Protein (6.3-8.2) g/dL Albumin (3.5-5.0) g/dL Urine Color Urine Appearance (Clear) Urine pH (5.0-8.0) Ur Specific [place] (1.001-1.035) Urine Protein (Negative) Urine Glucose (UA) (Negative) Urine Ketones (Negative) Urine Blood (Negative) Urine Nitrite (Negative) Urine Bilirubin (Negative) Urine Urobilinogen (<2.0) mg/dL Ur Leukocyte Esterase (Negative) Urine RBC (0-5) /hpf Urine WBC (0-5) /hpf Urine WBC Clumps (None) /hpf Ur Squamous Epith Cells (0-4) /hpf Urine Bacteria (None) /hpf Urine Mucus (None) /hpf Coronavirus (PCR) (Not Detectd) - EKG Data EKG shows normal: sinus rhythm Rate: tachycardia EKG Comments: EKG was obtained at 2109 showing sinus tachycardia with left axis deviation and possible anterior myocardial infarction. Ventricular rate 103, MS interval 175, QRS duration 108, QT/QTC 350/409. Interpretation abnormal ECG. - Radiology Data Radiology results: report reviewed, image reviewed Two-view chest x-ray was obtained. Report was reviewed in its entirety. Impre ssion per is mild interstitial edema versus atelectasis. Disposition Clinical Impression: Weakness, UTI (urinary tract infection), Hyperglycemia, Chronic renal insufficiency Disposition: ADMITTED IP TO THIS HOSP Condition: Stable Decision Date: 06/30/21 Decision Time: 23:40
--- NOTE | 2021-06-30 22:05 | XR ---
EXAMINATION TYPE: XR chest 2V DATE OF EXAM: 06/30/2021 COMPARISON: 10/11/2019 HISTORY: Weakness TECHNIQUE: Frontal and lateral views of the chest are obtained. FINDINGS: There is diffuse mild to moderate hazy opacity. No pleural effusion, or pneumothorax seen. The cardiac silhouette size is within normal limits. The osseous structures are intact. IMPRESSION: Mild interstitial edema versus atelectasis.
[2021-06-30 22:12] LABS: Appearance,Urine Cloudy (Clear); Bacteria,Urine Many /hpf; Bilirubin,Urine Negative (Negative); Blood,Urine Small (Negative); Color,Urine Light Yellow; Glucose,Urine (UA) 2+ (Negative); Ketones,Urine 1+ (Negative); Leukocyte Esterase,Urine Large (Negative); Mucus,Urine Rare /hpf; Nitrite,Urine Negative (Negative); PH, Urine 6.5 (5.0-8.0); Protein,Urine Trace (Negative); RBC,Urine 7 /hpf (0-5); Specific Gravity,Urine 1.014 (1.001-1.035); Squamous Epithelial Cell,Urine 1 /hpf (0-4); Urobilinogen,Urine <2.0 mg/dL (<2.0); WBC,Urine >182 /hpf (0-5)
[2021-06-30] MEDS ORDERED: cefTRIAXone IN SWFI 1,000 MG/10 ML SYRINGE IVP STA (22:35)
[2021-06-30 22:47] LABS: Basophils % (A) 0 %; Eosinophils # (A) 0.3 k/uL (0-0.7); Eosinophils % (A) 1 %; HCT 39.4 % (34.0-46.0); HGB 12.2 gm/dL (11.4-16.0); Hypochromasia Slight; Lymphocytes # (A) 0.3 k/uL (1.0-4.8); Lymphocytes % (A) 2 %; MCH 31.2 pg (25.0-35.0); MCV 100.7 fL (80.0-100.0); Mean Platelet Volume 8.2; Monocytes # (A) 0.6 k/uL (0-1.0); Monocytes % (A) 3 %; Neutrophils # (A) 20.1 k/uL (1.3-7.7); Neutrophils % (A) 94 %; Platelet Count 218 k/uL (150-450); RBC 3.91 m/uL (3.80-5.40); RDW 13.4 % (11.5-15.5); WBC 21.5 k/uL (3.8-10.6)
[2021-06-30 22:59] LABS: Calcium 9.1 mg/dL (8.4-10.2); Magnesium 1.9 mg/dL (1.6-2.3); Potassium 4.6 mmol/L (3.5-5.1); Total Bilirubin 0.6 mg/dL (0.2-1.3); Total Protein 7.1 g/dL (6.3-8.2)
[2021-06-30 23:03] LABS: Partial Thromboplastin Time 28.3 sec (22.0-30.0)
[2021-06-30] MEDS ORDERED: NALOXONE 0.4 MG/ML 1 ML VIAL IV PRN (23:40)
[2021-06-30] MEDS ORDERED: ACETAMINOPHEN TAB 325 MG TAB PO PRN (23:40)
[2021-06-30] MEDS ORDERED: ONDANSETRON 4 MG/2 ML VIAL IVP PRN (23:40)
[2021-07-01] MEDS: HYDROmorphone 0.5 MG/0.5 ML SYRINGE IVP PRN ×3 (01:06→09:05)
[2021-07-01 06:32] LABS: Basophils % (A) 0 %; Eosinophils # (A) 0.1 k/uL (0-0.7); Eosinophils % (A) 1 %; HCT 32.3 % (34.0-46.0); HGB 10.2 gm/dL (11.4-16.0); Lymphocytes # (A) 0.7 k/uL (1.0-4.8); Lymphocytes % (A) 4 %; MCH 31.6 pg (25.0-35.0); MCHC 31.6 g/dL (31.0-37.0); Mean Platelet Volume 7.9; Monocytes # (A) 0.6 k/uL (0-1.0); Monocytes % (A) 4 %; Neutrophils # (A) 14.4 k/uL (1.3-7.7); Neutrophils % (A) 91 %; Platelet Count 181 k/uL (150-450); RBC 3.23 m/uL (3.80-5.40); RDW 13.4 % (11.5-15.5); WBC 15.9 k/uL (3.8-10.6)
[2021-07-01 07:06] LABS: Calcium 8.1 mg/dL (8.4-10.2); Potassium 4.3 mmol/L (3.5-5.1)
[2021-07-01] MEDS ORDERED: FAMOTIDINE 20 MG TAB PO SCH (09:00)
[2021-07-01] MEDS ORDERED: NYSTATIN 100,000UNIT/GM CREAM 30 GM TUBE TOPICAL PRN (09:40)
[2021-07-01] MEDS ORDERED: NYSTATIN 100,000 UNIT/GM POWD 15 GM TOPICAL PRN (09:40)
--- NOTE | 2021-07-01 10:30 | P.HPIM ---
History of Present Illness 66-year-old pleasant female came in with compensative generalized weakness has been is concerned about urinary tract infection although patient denied any dysuria patient did have leukocytosis with white blood cell count going up to 21,000 and it improved to 15,000 after she was given a dose of Rocephin. Patient urine did look abnormal and consistent with urinary tract infection patient denied any suprapubic pain patient doesn't have any fever chills, patient generalized weakness improved and patient is feeling much better com pared to yesterday. Patient usually uses walker and patient was unable to ambulate with a walker. There is no other source of infection that was evident patient denied any cough no cellulitis, patient is a well-known patient to me. Her serum creatinine is 1.5. Baseline appears to be around 1-1.3 patient does take as needed Lasix for the bilateral lower extremity venous stasis and edema REVIEW OF SYSTEMS: CONSTITUTIONAL: As mentioned in HPI HEENT: No recent visual problems or hearing problems. Denied any sore throat. CARDIOVASCULAR: No chest pain, orthopnea, PND, no palpitations, no syncope. PULMONARY: No shortness of breath, no cough, no hemoptysis. GASTROINTESTINAL: No diarrhea, no nausea, no vomiting, no abdominal pain. NEUROLOGICAL: No headaches, no weakness, no numbness. HEMATOLOGICAL: Denies any bleeding or petechiae. GENITOURINARY: Denies any burning micturition, frequency, or urgency. MUSCULOSKELETAL/RHEUMATOLOGICAL: Denies any joint pain, swelling, or any muscle pain. ENDOCRINE: Denies any polyuria or polydipsia. The rest of the 14-point review of systems is negative. PHYSICAL EXAMINATION: GENERAL: The patient is alert and oriented x3, not in any acute distress. Obese HEENT: Pupils are round and equally reacting to light. EOMI. No scleral icterus. No conjunctival pallor. Normocephalic, atraumatic. No pharyngeal erythema. No thyromegaly. CARDIOVASCULAR: S1 and S2 present. No murmurs, rubs, or gallops. PULMONARY: Chest is clear to auscultation, no wheezing or crackles. ABDOMEN: Soft, nontender, nondistended, normoactive bowel sounds. No palpable organomegaly. MUSCULOSKELETAL: No joint swelling or deformity. EXTREMITIES: No cyanosis, clubbing, or pedal edema. NEUROLOGICAL: Gross neurological examination did not reveal any focal deficits. SKIN: No rashes. Assessment and plan -Generalized weakness or tiredness and leukocytosis: Possibly of UTI patient will be switched to 2 g of Rocephin patient did have clinical improvement with Rocephin at this time. Patient will be monitored will obtain urine cultures -Type 2 diabetes mellitus with uncontrolled blood sugars will increase the dose of long-acting insulin continue with pre-meal insulin along with sliding scale -Gases visual reflux disease -Hyperlipidemia next and heparin hypertension -Obesity -Sleep apnea and uses CPAP machine which will be continued -Chronic venous stasis but patient doesn't have much or pedal edema will hold off on the diuretics -Mild acute on chronic kidney disease stage III: Holding off on Lasix at this time we will repeat basic metabolic profile tomorrow DVT prophylaxis: Subcutaneous Lovenox Past Medical History Past Medical History: CVA/TIA, Diabetes Mellitus, GERD/Reflux, Hyperlipidemia, Hypertension, Renal Disease, Rheumatoid Arthritis (RA), Sleep Apnea/CPAP/BIPAP Additional Past Medical History / Comment(s): CKD stage 3, broken Lt foot 2011- no sx, stroke 2004 affected non dominant lt side . lt side weaker than rt", vertigo, neck pain, mini stroke nov 2016. EARL and she has not used CPAP, RA, HTN, GERD, DM2 , right big toe ulcer. 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 Date of last positivie culture/infection: 09/27/20 MDRO Source:: LEG MRSA Past Surgical History: Breast Surgery, Cholecystectomy Additional Past Surgical History / Comment(s): breast biopsy, gastric sleeve 11/07/14, colonoscopy 04/14/14, bilateral cataract surgery Past Anesthesia/Blood Transfusion Reactions: Motion Sickness Past Psychological History: Depression Smoking Status: Never smoker Past Alcohol Use History: None Reported Past Drug Use History: None Reported - Past Family History Mother Family Medical History: Diabetes Mellitus Additional Family Medical History / Comment(s): heart attack, Brother of lung cancer 04/19/14 Father Family Medical History: Cancer Additional Family Medical History / Comment(s): lung cancer Brother(s) Family Medical History: Cancer Additional Family Medical History / Comment(s): LUNG Medications and Allergies Home Medications Medication Instructions Recorded Confirmed Type DULoxetine HCL [Cymbalta] 60 mg PO BID 09/30/13 07/01/21 History calcitrioL [Calcitriol] 0.5 mcg PO DAILY 09/30/13 07/01/21 History Topiramate [Topamax] 25 mg PO BID 07/06/16 07/01/21 History Atorvastatin [Lipitor] 40 mg PO DAILY 01/06/17 07/01/21 History carvediloL [Coreg*] 12.5 mg PO BID 04/06/18 07/01/21 History lisinopriL [Zestril] 2.5 mg PO DAILY 09/21/18 07/01/21 History INSULIN ASPART (NovoLOG) [NovoLOG 12 unit SQ AC-TID 09/29/19 07/01/21 History (formulary)] Pregabalin [Lyrica] 75 mg PO BID 09/29/19 07/01/21 History amLODIPine [Norvasc] 10 mg PO DAILY 09/29/19 07/01/21 History oxyCODONE-APAP 10-325MG [Percocet 1 tab PO Q6H PRN 09/29/19 07/01/21 History 10-325 mg] Aspirin EC [Ecotrin Low Dose] 81 mg PO DAILY 07/01/21 07/01/21 History Furosemide [Lasix] 20 mg PO BID PRN 07/01/21 07/01/21 History Insulin Glargine,Hum.rec.anlog 28 unit SQ HS 07/01/21 07/01/21 History [Lantus Solostar Pen] Nystatin 100,000Unit/gm Cream 1 applic TOPICAL BID PRN 07/01/21 07/01/21 History [Mycostatin Cream] Nystatin [Nystop] 1 applic TOPICAL BID PRN 07/01/21 07/01/21 History Potassium Chloride [Potassium 10 meq PO DAILY 07/01/21 07/01/21 History Chloride ER] SILVER sulfADIAZINE Cream 1 applic TOPICAL BID 07/01/21 07/01/21 History [Silvadene 1% Cream] Allergies Allergy/AdvReac Type Severity Reaction Status Date / Time No Known Allergies Allergy Verified 07/01/21 07:19 Physical Exam Vitals: Vital Signs Temp Pulse Pulse Resp BP Pulse Ox 07/01/21 09:00 76 18 148/54 94 L 07/01/21 05:56 98.3 F 81 18 140/61 94 L 06/30/21 21:15 99.2 F 106 H 106 H 16 125/69 100 06/30/21 20:39 100.9 F H 103 H 18 148/62 97 Intake and Output 06/30/21 07/01/21 07/01/21 22:59 06:59 14:59 Other: Weight 136.078 kg Results CBC & Chem 7: 07/01/21 06:20 07/01/21 06:20 Labs: Abnormal Lab Results - Last 24 Hours (Table) 06/30/21 06/30/21 06/30/21 Range/Units 21:46 22:36 22:36 WBC 21.5 H (3.8-10.6) k/uL RBC (3.80-5.40) m/uL Hgb (11.4-16.0) gm/dL Hct (34.0-46.0) % MCV 100.7 H (80.0-100.0) fL Neutrophils # 20.1 H (1.3-7.7) k/uL Lymphocytes # 0.3 L (1.0-4.8) k/uL Sodium (137-145) mmol/L BUN 43 H (7-17) mg/dL Creatinine 1.64 H (0.52-1.04) mg/dL Glucose 273 H (74-99) mg/dL Calcium (8.4-10.2) mg/dL Urine Appearance Cloudy H (Clear) Urine Protein Trace H (Negative) Urine Glucose (UA) 2+ H (Negative) Urine Ketones 1+ H (Negative) Urine Blood Small H (Negative) Ur Leukocyte Esterase Large H (Negative) Urine RBC 7 H (0-5) /hpf Urine WBC >182 H (0-5) /hpf Urine WBC Clumps Few H (None) /hpf Urine Bacteria Many H (None) /hpf Urine Mucus Rare H (None) /hpf 07/01/21 07/01/21 Range/Units 06:20 06:20 WBC 15.9 H (3.8-10.6) k/uL RBC 3.23 L (3.80-5.40) m/uL Hgb 10.2 L (11.4-16.0) gm/dL Hct 32.3 L (34.0-46.0) % MCV (80.0-100.0) fL Neutrophils # 14.4 H (1.3-7.7) k/uL Lymphocytes # 0.7 L (1.0-4.8) k/uL Sodium 136 L (137-145) mmol/L BUN 40 H (7-17) mg/dL Creatinine 1.53 H (0.52-1.04) mg/dL Glucose 251 H (74-99) mg/dL Calcium 8.1 L (8.4-10.2) mg/dL Urine Appearance (Clear) Urine Protein (Negative) Urine Glucose (UA) (Negative) Urine Ketones (Negative) Urine Blood (Negative) Ur Leukocyte Esterase (Negative) Urine RBC (0-5) /hpf Urine WBC (0-5) /hpf Urine WBC Clumps (None) /hpf Urine Bacteria (None) /hpf Urine Mucus (None) /hpf Microbiology - Last 24 Hours (Table) 06/30/21 21:46 Urine Culture - Preliminary Urine,Voided
[2021-07-01 11:55] LABS: Glucose,Whole Blood 286 mg/dL (75-99)
[2021-07-01] MEDS: DULoxetine HCL 60 MG CAPSULE.DR PO SCH ×2 (12:27→20:56)
[2021-07-01] MEDS: ASPIRIN 81 MG PO SCH (12:27)
[2021-07-01] MEDS: oxyCODONE-APAP 10-325MG 1 EACH TAB PO PRN ×2 (12:27→19:46)
[2021-07-01] MEDS: FAMOTIDINE 20 MG TAB PO SCH (12:27)
[2021-07-01] MEDS: TOPIRAMATE 25 MG TAB PO SCH ×2 (12:28→20:57)
[2021-07-01] MEDS: INSULIN ASPART (NovoLOG) 100 UNIT/ML VIAL SQ SCH ×2 (12:48→17:33)
[2021-07-01] MEDS: carvediloL 12.5 MG TAB PO SCH ×2 (12:48→17:32)
[2021-07-01] MEDS: amLODIPine 10 MG TAB PO SCH (12:48)
[2021-07-01 17:10] LABS: Glucose,Whole Blood 200 mg/dL (75-99)
[2021-07-01 20:14] LABS: Glucose,Whole Blood 201 mg/dL (75-99)
[2021-07-01] MEDS: PREGABALIN 75 MG CAP PO SCH (20:56)
[2021-07-01 20:57] VITALS: RESP 16
[2021-07-01] MEDS ORDERED: INSULIN DETEMIR (LEVEMIR) 100 UNIT/ML SYR SQ SCH (21:00)
[2021-07-02] MEDS: oxyCODONE-APAP 10-325MG 1 EACH TAB PO PRN ×3 (01:57→16:21)
[2021-07-02 07:13] LABS: Glucose,Whole Blood 164 mg/dL (75-99)
[2021-07-02] MEDS: PREGABALIN 75 MG CAP PO SCH (07:47)
[2021-07-02] MEDS: FAMOTIDINE 20 MG TAB PO SCH (07:47)
[2021-07-02] MEDS: carvediloL 12.5 MG TAB PO SCH (07:47)
[2021-07-02] MEDS: amLODIPine 10 MG TAB PO SCH (07:47)
[2021-07-02] MEDS: TOPIRAMATE 25 MG TAB PO SCH (07:48)
[2021-07-02] MEDS: ASPIRIN 81 MG PO SCH (07:48)
[2021-07-02] MEDS: DULoxetine HCL 60 MG CAPSULE.DR PO SCH (07:48)
[2021-07-02] MEDS: INSULIN ASPART (NovoLOG) 100 UNIT/ML VIAL SQ SCH ×2 (07:49→12:57)
[2021-07-02] MEDS ORDERED: ATORVASTATIN 40 MG TAB PO SCH (09:00)
[2021-07-02 09:14] LABS: HCT 32.4 % (37.2-46.3); HGB 9.6 g/dL (12.0-15.0); MCH 30.4 pg (27.0-32.0); MCHC 29.6 g/dL (32.0-37.0); MCV 102.5 fL (80.0-97.0); Mean Platelet Volume 11.5 fL (9.5-12.2); NRBC Per 100 WBC 0 /100 WBCS (0.0-0.0); Platelet Count 167 X 10*3/uL (140-440); RBC 3.16 X 10*6/uL (4.10-5.20); RDW 13.8 % (11.5-14.5); WBC 7.73 X 10*3/uL (4.50-10.00)
[2021-07-02 09:37] LABS: African American GFR (CKD) 42.7 (60.0-200.0); Anion Gap 11.5 mmol/L (10.00-18.00); BUN/Creat Ratio 22.53 Ratio (12.00-20.00); Blood Urea Nitrogen 32.9 mg/dL (9.0-27.0); Calcium 8.5 mg/dL (8.7-10.3); Carbon Dioxide 22.8 mmol/L (20.0-27.5); Magnesium 2.2 mg/dL (1.5-2.4); Non-African American GFR(CKD) 36.9 (60.0-200.0); Potassium 3.9 mmol/L (3.5-5.5)
[2021-07-02 12:02] VITALS: BP 133/75; PULSE 67; TEMP 98.5
[2021-07-02 12:08] LABS: Glucose,Whole Blood 116 mg/dL (75-99)
--- NOTE | 2021-07-02 15:44 | P.DS ---
Providers Date of admission: 07/01/21 00:14 Attending physician: Alix Crawford Primary care physician: Mere Moreno Hospital Course: Final Diagnosis Generalized weakness leukocytosis secondary to urinary tract infection patient received 2 days of IV rocephin while inpatient and will discharge on 3 more days of oral ceftin Mild acute on chronic kidney disease stage III, lasix was held and resume at 20 mg daily on discharge Diabetes Mellitus type 2 with hyperglycemia Gastroesophageal reflux disease Hyperlipidemia Hypertension, controlled Obesity Sleep apnea with CPAP use at home Chronic venous stasis on lasix at home History of rheumatoid arthritis History of MRSA and leg in September 2020 History of gastric sleep in 2014 Full code Discharge Disposition Patient is stable for discharge home. She will complete 3 days of oral ceftin for acute UTI. Creatinine has improved, patient will continue to hold lisinopril and decrease lasix to 20 mg po daily and repeat labs in 2-3 days. Recommend follow up with primary care in 2-3 days as well. Hospital Course This is a pleasant 66-year-old female presents to hospital with generalized weakness and is concerned about urinary tract infection although patient does not have any dysuria, urgency or frequency. On admission her white count was found to be 21.5, BUN 43, creatinine 1.64, glucose 273. Urinalysis was completed showing cloudy urine with trace protein, 2+glucose 1+ ketones, small blood, large leukocyte esterase, 7 RBC, greater than 182 WBCs, few WBC clumps, many bacteria, rare mucus. Urine is negative for nitrates. Patient was started on IV Rocephin 2 g received a total of 2 doses. Urine culture showing gram- negative bacilli patient will be discharged on 3 more days oral Ceftin with follow-up on urine culture. Patient follows with Dr. Mere Moreno the primary care setting, chronic medical conditions include diabetes mellitus, gastroesophageal reflux disease, hyperlipidemia, hypertension, rheumatoid arthritis, sleep apnea and uses a CPAP, chronic kidney disease stage III, right big toe ulcer, MRSA to the left leg and September 2020, chronic venous stasis. He should uses Silvadene cream twice a day to her lower extremities, she is also on Lasix twice a day. Diagnostics on admission included chest x-ray showing sinus tachycardia with a heart rate of 103, no ST-T abnormalities evident, QT interval 409. Labs as described above. Patient clinically improved with IV antibiotics, white count is now 7.73, sodium 142, creatinine has improved to 1.5, blood glucose now 116. 07/03/2021 Patient has been evaluated by physical therapy was recommended patient to be discharged home with home care services. Patient overall states that she is feeling better and would like to be discharged on antibiotics today. She is instructed to continue Lasix at 20 mg daily and follow-up on labs in 2-3 days at her primary care office. If she experiences any peripheral edema or increase in swelling she can increase to twice a day as previously. Additionally hold lisinopril until follow-up with primary care as well. She is denying chest pain, shortness of breath, denying nausea vomiting diarrhea. She denies abdominal pain, denies dysuria, urgency or frequency. She had a bowel movement. She is denying fever or chills. Her lungs are clear, S1-S2 auscultated, abdomen is soft and nontender. Patient is remained afebrile, blood pressure 133/75, heart rate 67, 94% oxygen saturation on room air. Focal neurological exam is negative. Continue with all other home medications. Please see medication reconciliation for a list of current medications. Thank you for allowing us to participate in the care of this patient. The impression and plan of care has been dictated by Eva Short, Nurse Practitioner as directed. Dr. Arlette MD I have performed a history and physical examination and medical decision making of this patient, discussed the same with the dictator, and agree with the dictators assessment and plan as written, documented as a scribe. Based on total visit time, I have performed more than 50% of this visit. Patient Condition at Discharge: Stable Plan - Discharge Summary New Discharge Prescriptions: New Cefuroxime Axetil [Ceftin] 500 mg PO BID 3 Days #6 tab Omeprazole 20 mg PO DAILY #30 cap Continue DULoxetine HCL [Cymbalta] 60 mg PO BID calcitrioL [Calcitriol] 0.5 mcg PO DAILY Topiramate [Topamax] 25 mg PO BID Atorvastatin [Lipitor] 40 mg PO DAILY carvediloL [Coreg*] 12.5 mg PO BID amLODIPine [Norvasc] 10 mg PO DAILY INSULIN ASPART (NovoLOG) [NovoLOG (formulary)] 12 unit SQ AC-TID oxyCODONE-APAP 10-325MG [Percocet 10-325 mg] 1 tab PO Q6H PRN PRN Reason: Pain Pregabalin [Lyrica] 75 mg PO BID Insulin Glargine,Hum.rec.anlog [Lantus Solostar Pen] 28 unit SQ HS SILVER sulfADIAZINE Cream [Silvadene 1% Cream] 1 applic TOPICAL BID Aspirin EC [Ecotrin Low Dose] 81 mg PO DAILY Nystatin [Nystop] 1 applic TOPICAL BID PRN PRN Reason: Skin Irritation Nystatin 100,000Unit/gm Cream [Mycostatin Cream] 1 applic TOPICAL BID PRN PRN Reason: Skin Irritation Potassium Chloride [Potassium Chloride ER] 10 meq PO DAILY Changed Furosemide [Lasix] 20 mg PO DAILY PRN #0 PRN Reason: Edema Discontinued lisinopriL [Zestril] 2.5 mg PO DAILY Discharge Medication List DULoxetine HCL [Cymbalta] 60 mg PO BID 09/30/13 [History] calcitrioL [Calcitriol] 0.5 mcg PO DAILY 09/30/13 [History] Topiramate [Topamax] 25 mg PO BID 07/06/16 [History] Atorvastatin [Lipitor] 40 mg PO DAILY 01/06/17 [History] carvediloL [Coreg*] 12.5 mg PO BID 04/06/18 [History] INSULIN ASPART (NovoLOG) [NovoLOG (formulary)] 12 unit SQ AC-TID 09/29/19 [History] Pregabalin [Lyrica] 75 mg PO BID 09/29/19 [History] amLODIPine [Norvasc] 10 mg PO DAILY 09/29/19 [History] oxyCODONE-APAP 10-325MG [Percocet 10-325 mg] 1 tab PO Q6H PRN 09/29/19 [History] Aspirin EC [Ecotrin Low Dose] 81 mg PO DAILY 07/01/21 [History] Insulin Glargine,Hum.rec.anlog [Lantus Solostar Pen] 28 unit SQ HS 07/01/21 [History] Nystatin 100,000Unit/gm Cream [Mycostatin Cream] 1 applic TOPICAL BID PRN 07/01/21 [History] Nystatin [Nystop] 1 applic TOPICAL BID PRN 07/01/21 [History] Potassium Chloride [Potassium Chloride ER] 10 meq PO DAILY 07/01/21 [History] SILVER sulfADIAZINE Cream [Silvadene 1% Cream] 1 applic TOPICAL BID 07/01/21 [History] Cefuroxime Axetil [Ceftin] 500 mg PO BID 3 Days #6 tab 07/02/21 [Rx] Furosemide [Lasix] 20 mg PO DAILY PRN #0 07/02/21 [Rx] Omeprazole 20 mg PO DAILY #30 cap 07/02/21 [Rx] Follow up Appointment(s)/Referral(s): Mere Moreno DO [Primary Care Provider] - 07/04/21 11:20 am Ambulatory/Diagnostic Orders: Basic Metabolic Panel [LAB.AMB] Time Frame: 2 Days, Location: None Selected Patient Instructions/Handouts: Cefuroxime (By mouth), Omeprazole (By mouth), Urinary Incontinence (ED), Urinary Tract Infection in Women (DC), Basic Carbohydrate Counting (DC), Basic Metabolic Panel (GEN), Weakness (DC), Diabetic Hyperglycemia (DC) Activity/Diet/Wound Care/Special Instructions: Continue to hold lisinopril until repeat labs and follow up with primary care in the next 2-3 days prior to resuming. Lasix decreased to 20 daily, and can increase back to 20 BID if peripheral edema occurs. Also ok to resume back to BID if creatinine stable on follow up labs. Discharge Disposition: HOME WITH HOME HEALTH SERVICES
== END 2021-07-02 17:05 | disposition home health service (06) ==
LOC: EC 20:13 → 6NMEDSUR 23:26 → 4SSUR 07-01 00:13 → INTOOBSV 07-01 00:14 → OBSVTOIN 07-01 00:14 → 5NMEDONC 07-01 08:26 → UNDODISIN 07-02 17:05
PROVIDERS: ADMIT Hospitalist; ATTEND Hospitalist
DX: N39.0 Urinary tract infection, site not specified (principal); I12.9 Hypertensive chronic kidney disease with stage 1 through stage 4 chronic kidney disease, or unspecified chronic kidney disease; N18.30 Chronic kidney disease, stage 3 unspecified; E11.22 Type 2 diabetes mellitus with diabetic chronic kidney disease; E11.65 Type 2 diabetes mellitus with hyperglycemia; K21.9 Gastro-esophageal reflux disease without esophagitis; E78.5 Hyperlipidemia, unspecified; G47.33 Obstructive sleep apnea (adult) (pediatric); E66.9 Obesity, unspecified; Z68.41 Body mass index [BMI] 40.0-44.9, adult; L97.519 Non-pressure chronic ulcer of other part of right foot with unspecified severity; I87.8 Other specified disorders of veins; F32.A Depression, unspecified; M06.9 Rheumatoid arthritis, unspecified; Z20.822 Contact with and (suspected) exposure to COVID-19; Z79.4 Long term (current) use of insulin; Z79.82 Long term (current) use of aspirin; Z79.899 Other long term (current) drug therapy; Z86.14 Personal history of Methicillin resistant Staphylococcus aureus infection; Z86.73 Personal history of transient ischemic attack (TIA), and cerebral infarction without residual deficits; Z90.49 Acquired absence of other specified parts of digestive tract; Z80.1 Family history of malignant neoplasm of trachea, bronchus and lung; Z82.49 Family history of ischemic heart disease and other diseases of the circulatory system; Z83.3 Family history of diabetes mellitus
CPT/HCPCS: 96361 ×3; 96365; 96366 ×2; 96376 ×2; 96375; 99285; 36415; 93005; 97116; 97162; 97166; 83880; 80053; 80048 ×2; 83605; 83735 ×2; 84484; 85025 ×2; 85027; 85610; 85730; 81001; 87040; 87086; 87077; 87186; 87635; 71046; G0378 ×4; J0696 ×3; J1170; 96374

== ENCOUNTER → 2021-09-19 | Outpatient (CLI) | payer MEDICARE ==
--- NOTE | 2021-09-19 18:21 | BD ---
EXAMINATION TYPE: Axial Bone Density DATE OF EXAM: 09/19/2021 COMPARISON: NONE CLINICAL HISTORY: 66 years year old Female. ICD-10 CODE: M15.0 OSTEOARTHRITIS Height: 5 FT 10 IN Weight: 310 FRAX RISK QUESTIONS: Alcohol (3 or more units per day): NO Family History (Parent hip fracture): UNKNOWN Glucocorticoids (More than 3mos): NO (Ex: prednisone, prednisolone, methylprednisolone, dexamethasone, and hydrocortisone). History of Fracture in Adulthood: NO Secondary Osteoporosis: 1. Type 1 Diabetes: TYPE 2 2. Hyperthyroidism: NO 3. Menopause before 45: YES 4. Malnutrition: NO 5. Chronic liver disease: NO Rheumatoid Arthritis: YES Current Tobacco Use: NO RISK FACTORS HISTORY OF: Surgery to Spine/Hip(right/left)/Wrist (right/left): NO Family History of Osteoporosis: NO Active: NO Diet low in dairy products/other sources of calcium: NO Postmenopausal woman: YES Take estrogen and/or progesterone medications: NO Lost more than 2 inches in height since high school: NO Frequent falls: USES A WALKER Poor Health: YES Hyperparathyroidism: NO Adrenal Insufficiency: KIDNEY DISEASE MEDICATIONS: Additional Medications: NYSTATIN, SILVADENE, SHINGRIX, FUROSEMIDE, POTASSIUM, AMLODIPINE, OXYCODONE, LISINOPRIL, CALCITRIOL, LANTUS, ATORVASTATIN, CARVEDILOL, DULOXETINE, NOVOLOG, TOPIRAMATE, LYRICA, PIRIN, OMEPRAZOLE, CEFUROXIME Additional History: EXAM MEASUREMENTS: Bone mineral densitometry was performed using the [employer] System. Bone mineral density as measured about the Lumbar spine is: ----- L1-L4(G/cm2): 1.416 T Score Values are as follows: ----- L1: 0.4 ----- L2: 0.7 ----- L3: 3.3 ----- L4: 3.0 ----- L1-L4: 2.0 BASELINE Bone mineral density about the R hip (g/cm2): 0.946 Bone mineral density about the L hip (g/cm2): 0.915 T Score values are as follows: -----R Neck: -0.7 -----L Neck: -0.9 -----R Total: -0.6 -----L Total: -0.7 BASELINE FRAX%s: The graph provided illustrates a 7.0 % chance for a major osteoporotic fx and a 0.5 % chance for the hips probability for fx in 10 years time. IMPRESSION: Normal (Values between +1 and -1 indicate normal bone mass). Consider repeating this study in 5 year s or sooner if there is some new clinical indication. NOTE: T-SCORE=SD OF THE YOUNG ADULT MEAN.
--- NOTE | 2021-09-20 15:50 | MM ---
Reason for Exam: Screening (asymptomatic). Last mammogram was performed 5 year(s) and 6 month(s) ago. Patient History: Menarche at age 13. First Full-Term at age 23. Postmenopausal. 04/18/2014, Benign Core Biopsy on the left side. 05/22/2006, Benign Core Biopsy on the left side. Risk Values: Stacy 5 year model risk: 2.1%. NCI Lifetime model risk: 7.1%. Prior Study Comparison: 04/18/2014 Left Diagnostic Mammogram, [facility]. 04/02/2015 Bilateral Diagnostic Mammogram, [facility]. 04/03/2016 Bilateral Screening Mammogram, [facility]. Tissue Density: The breast tissue is heterogeneously dense. This may lower the sensitivity of mammography. Findings: Analyzed By CAD. Biopsy clips are within the left breast. Scattered benign-appearing calcifications are present. Benign vascular calcifications are present. There is a new distortion with focal asymmetry in the anterior mid right mediolateral oblique view. Additional evaluation is recommended. Overall Assessment: Incomplete: need additional imaging evaluation, BI-RAD 0 Management: Diagnostic Mammogram of the right breast. A negative mammogram report should not preclude additional follow up of suspicious palpable abnormalities. Patient should continue monthly self breast exam. A clinical breast exam by your physician is recommended on an annual basis and results should be correlated with mammographic findings. Electronically signed and approved by: J Carlos Underwood D.O. Radiologis
== END | disposition home or self-care (01) ==
LOC: RADMAMWWP 14:34
PROVIDERS: ATTEND Family Medicine
DX: Z12.31 Encounter for screening mammogram for malignant neoplasm of breast (principal); M15.0 Primary generalized (osteo)arthritis; Z78.0 Asymptomatic menopausal state
CPT/HCPCS: 77063; 77067; 77080

== ENCOUNTER 2022-01-29 18:28 | Emergency (ER) | payer MEDICARE ==
[2022-01-29 18:45] VITALS: BP 125/63; PULSE 65; RESP 18; TEMP 98.1
--- NOTE | 2022-01-29 19:20 | ED ---
Recheck HPI - General Chief Complaint: Recheck/Abnormal Lab/Rx Stated Complaint: abn labs Time Seen by Provider: 01/29/22 19:07 Source: patient Mode of arrival: ambulatory Limitations: no limitations - History of Present Illness Initial Comments: This patient is 66-year-old woman who presents to have evaluation for abnormal lab test. She states she had seen her physician on Thursday had tests drawn and then received a call today to come and be seen about those results. She does not know which test was abnormal. The patient states she had gone see her doctor because she hadn't been feeling well over the weekend. She was feeling sluggish, having generalized weakness and fatigue. She states she feels okay now. Patient's states that he believes that she does worse on weekends because her usual visiting caregiver only comes on week days. She states on weekends her medication schedule and diet are off schedule. MD Complaint: abnormal lab -: days(s) Returns Today for: Called Because of Abnormal Lab/Test Symptoms Since Prior Visit: improved Context: called for abnormal lab result Associated Symptoms: malaise - Related Data Home Medications Medication Instructions Recorded Confirmed DULoxetine HCL [Cymbalta] 60 mg PO BID 09/30/13 07/01/21 calcitrioL [Calcitriol] 0.5 mcg PO DAILY 09/30/13 07/01/21 Topiramate [Topamax] 25 mg PO BID 07/06/16 07/01/21 Atorvastatin [Lipitor] 40 mg PO DAILY 01/06/17 07/01/21 carvediloL [Coreg*] 12.5 mg PO BID 04/06/18 07/01/21 INSULIN ASPART (NovoLOG) [NovoLOG 12 unit SQ AC-TID 09/29/19 07/01/21 (formulary)] Pregabalin [Lyrica] 75 mg PO BID 09/29/19 07/01/21 amLODIPine [Norvasc] 10 mg PO DAILY 09/29/19 07/01/21 oxyCODONE-APAP 10-325MG [Percocet 1 tab PO Q6H PRN 09/29/19 07/01/21 10-325 mg] Aspirin EC [Ecotrin Low Dose] 81 mg PO DAILY 07/01/21 07/01/21 Insulin Glargine,Hum.rec.anlog 28 unit SQ HS 07/01/21 07/01/21 [Lantus Solostar Pen] Nystatin 100,000Unit/gm Cream 1 applic TOPICAL BID PRN 07/01/21 07/01/21 [Mycostatin Cream] Nystatin [Nystop] 1 applic TOPICAL BID PRN 07/01/21 07/01/21 Potassium Chloride [Potassium 10 meq PO DAILY 07/01/21 07/01/21 Chloride ER] SILVER sulfADIAZINE Cream 1 applic TOPICAL BID 07/01/21 07/01/21 [Silvadene 1% Cream] Previous Rx's Medication Instructions Recorded Furosemide [Lasix] 20 mg PO DAILY PRN #0 07/02/21 Omeprazole 20 mg PO DAILY #30 cap 07/02/21 cefUROXime axetiL [Ceftin] 500 mg PO BID 3 Days #6 tab 07/02/21 Allergies Allergy/AdvReac Type Severity Reaction Status Date / Time No Known Allergies Allergy Verified 01/29/22 18:45 Review of Systems ROS Statement: Those systems with pertinent positive or pertinent negative responses have been documented in the HPI. ROS Other: All systems not noted in ROS Statement are negative. Constitutional: Reports: as per HPI, weakness (See HPI). Denies: fever, chills Respiratory: Denies: cough, dyspnea Cardiovascular: Reports: edema (Chronic). 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 lt side weaker than rt", vertigo, neck pain, mini stroke nov 2016. EARL and she has not used CPAP, RA, HTN, GERD, DM2 , right big toe ulcer. 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 Date of last positivie culture/infection: 09/27/20 MDRO Source:: LEG MRSA Past Surgical History: Breast Surgery, Cholecystectomy Additional Past Surgical History / Comment(s): breast biopsy, gastric sleeve 11/07/14, colonoscopy 04/14/14, bilateral cataract surgery Past Anesthesia/Blood Transfusion Reactions: Motion Sickness Past Psychological History: Depression Smoking Status: Never smoker Past Alcohol Use History: None Reported Past Drug Use History: None Reported - Past Family History Mother Family Medical History: Diabetes Mellitus Additional Family Medical History / Comment(s): heart attack, Brother of lung cancer 04/19/14 Father Family Medical History: Cancer Additional Family Medical History / Comment(s): lung cancer Brother(s) Family Medical History: Cancer Additional Family Medical History / Comment(s): LUNG General Exam Limitations: no limitations General appearance: alert, in no apparent distress Head exam: Present: atraumatic, normocephalic Eye exam: Present: normal appearance. Absent: scleral icterus, conjunctival injection Neck exam: Present: normal inspection Respiratory exam: Present: normal lung sounds bilaterally. Absent: respiratory distress, wheezes, rales, rhonchi, stridor Cardiovascular Exam: Present: regular rate, normal rhythm, normal heart sounds. Absent: systolic murmur, diastolic murmur, rubs, gallop GI/Abdominal exam: Present: soft. Absent: distended, tenderness, guarding, rebound, rigid, mass Extremities exam: Present: normal inspection, normal capillary refill, pedal edema. Absent: calf tenderness Neurological exam: Present: alert. Absent: motor sensory deficit Skin exam: Present: warm, dry, intact, normal color. Absent: rash Course Vital Signs 01/29/22 18:41 Temperature 98.1 F Pulse Rate 65 Respiratory 18 Rate Blood Pressure 125/63 O2 Sat by Pulse 96 Oximetry Medical Decision Making - Medical Decision Making This patient is 66-year-old woman here to have lab testing for an abnormal result that she was called about. In checking the computer it does appear that the patient's creatinine was probably the lab in question. It has improved from the previous result. It is not quite yet back at the patient's baseline. I discussed the results and I was going to admit the patient to have nephrology consultation, the patient states that she is better and would like to go home. She states she will drink additional fluids as she has not been taking much. She will follow and have the lab rechecked to ensure that is returning to baseline. Discussed appropriate further care and follow-up - Lab Data Result diagrams: 01/29/22 19:26 01/29/22 19:26 Lab Results 01/29/22 01/29/22 01/29/22 Range/Units 19:26 19:26 19:26 WBC 7.6 (3.8-10.6) k/uL RBC 3.51 L (3.80-5.40) m/uL Hgb 10.7 L (11.4-16.0) gm/dL Hct 34.2 (34.0-46.0) % MCV 97.5 D (80.0-100.0) fL MCH 30.6 (25.0-35.0) pg MCHC 31.4 (31.0-37.0) g/dL RDW 13.8 (11.5-15.5) % Plt Count 188 (150-450) k/uL MPV 9.2 Neutrophils % 77 % Lymphocytes % 15 % Monocytes % 4 % Eosinophils % 2 % Basophils % 0 % Neutrophils # 5.9 (1.3-7.7) k/uL Lymphocytes # 1.1 (1.0-4.8) k/uL Monocytes # 0.3 (0-1.0) k/uL Eosinophils # 0.1 (0-0.7) k/uL Basophils # 0.0 (0-0.2) k/uL Hypochromasia Slight Sodium 139 (137-145) mmol/L Potassium 4.9 (3.5-5.1) mmol/L Chloride 107 (98-107) mmol/L Carbon Dioxide 26 (22-30) mmol/L Anion Gap 6 mmol/L BUN 52 H (7-17) mg/dL Creatinine 2.51 H (0.52-1.04) mg/dL Est GFR (CKD-EPI)AfAm 22 (>60 ml/min/1.73 sqM) Est GFR (CKD-EPI)NonAf 19 (>60 ml/min/1.73 sqM) Glucose 174 H (74-99) mg/dL Calcium 8.6 (8.4-10.2) mg/dL Magnesium 2.1 (1.6-2.3) mg/dL Total Bilirubin 0.4 (0.2-1.3) mg/dL AST 41 H (14-36) U/L ALT 22 (4-34) U/L Alkaline Phosphatase 113 (38-126) U/L Troponin I <0.012 (0.000-0.034) ng/mL Total Protein 6.6 (6.3-8.2) g/dL Albumin 3.4 L (3.5-5.0) g/dL Disposition Clinical Impression: Renal insufficiency Disposition: HOME SELF-CARE Condition: Fair Instructions (If sedation given, give patient instructions): Acute Kidney Injury (DC) Is patient prescribed a controlled substance at d/c from ED?: No Referrals: Mere Rodriguez DO [Primary Care Provider] - 1-2 days Chiki Park DO [STAFF PHYSICIAN] - 1-2 days
[2022-01-29 19:33] LABS: Basophils % (A) 0 %; Eosinophils # (A) 0.1 k/uL (0-0.7); Eosinophils % (A) 2 %; HCT 34.2 % (34.0-46.0); HGB 10.7 gm/dL (11.4-16.0); Hypochromasia Slight; Lymphocytes # (A) 1.1 k/uL (1.0-4.8); Lymphocytes % (A) 15 %; MCH 30.6 pg (25.0-35.0); MCHC 31.4 g/dL (31.0-37.0); Mean Platelet Volume 9.2; Monocytes # (A) 0.3 k/uL (0-1.0); Monocytes % (A) 4 %; Neutrophils # (A) 5.9 k/uL (1.3-7.7); Neutrophils % (A) 77 %; Platelet Count 188 k/uL (150-450); RBC 3.51 m/uL (3.80-5.40); RDW 13.8 % (11.5-15.5); WBC 7.6 k/uL (3.8-10.6)
[2022-01-29 19:46] LABS: MCV 97.5 fL (80.0-100.0)
[2022-01-29 20:35] LABS: Albumin 3.4 g/dL (3.5-5.0); Calcium 8.6 mg/dL (8.4-10.2); Magnesium 2.1 mg/dL (1.6-2.3); Potassium 4.9 mmol/L (3.5-5.1); Total Bilirubin 0.4 mg/dL (0.2-1.3); Total Protein 6.6 g/dL (6.3-8.2)
== END 2022-01-29 21:28 | disposition home or self-care (01) ==
LOC: EC 18:28
DX: N28.9 Disorder of kidney and ureter, unspecified (principal); G45.9 Transient cerebral ischemic attack, unspecified; E11.9 Type 2 diabetes mellitus without complications; K21.9 Gastro-esophageal reflux disease without esophagitis; E78.5 Hyperlipidemia, unspecified; I12.9 Hypertensive chronic kidney disease with stage 1 through stage 4 chronic kidney disease, or unspecified chronic kidney disease; G47.30 Sleep apnea, unspecified; F32.A Depression, unspecified; Z79.899 Other long term (current) drug therapy; Z79.4 Long term (current) use of insulin; Z79.82 Long term (current) use of aspirin
CPT/HCPCS: 36415; 80053; 83735; 84484; 85025; 99283

== ENCOUNTER 2022-02-23 20:17 | Inpatient (IN) | payer MEDICARE ==
[2022-02-23 22:18] LABS: Basophils % (A) 0 %; Eosinophils % (A) 0 %; HCT 38.7 % (34.0-46.0); Lymphocytes # (A) 0.6 k/uL (1.0-4.8); Lymphocytes % (A) 5 %; MCH 30.9 pg (25.0-35.0); MCV 99.8 fL (80.0-100.0); Macrocytosis Slight; Monocytes # (A) 0.5 k/uL (0-1.0); Monocytes % (A) 5 %; Neutrophils # (A) 9.7 k/uL (1.3-7.7); Neutrophils % (A) 89 %; Platelet Count 177 k/uL (150-450); RBC 3.88 m/uL (3.80-5.40); RDW 14.3 % (11.5-15.5); WBC 10.9 k/uL (3.8-10.6)
[2022-02-23 22:18] LABS: VBG PH 7.3 (7.31-7.41)
--- NOTE | 2022-02-23 22:21 | ED ---
General Adult HPI - General Chief complaint: Fall Stated complaint: poss fall Time Seen by Provider: 02/23/22 20:31 Source: EMS Mode of arrival: EMS - History of Present Illness Initial comments: This is a 66-year-old female that was brought into the emergency department via EMS for being found down. Per EMS, the patient was found on the ground near her kitchen and was altered. The patient's did present emergency department when I was evaluating the patient and did state she was left alone this weekend and noted that when he came home he found the patient on the floor. The patient was confused on his arrival however currently the patient was back to her ba isha. The patient was ANO 2 for me. The patient herself could not provide any further history as to what happened. It was reported the patient's last known normal was before noon on Thursday. The patient herself was resting in bed not complaining of any other acute pain or distress. No further history could be obtained at this time. - Related Data Home Medications Medication Instructions Recorded Confirmed DULoxetine HCL [Cymbalta] 60 mg PO BID 09/30/13 02/23/22 calcitrioL [Calcitriol] 0.5 mcg PO DAILY 09/30/13 02/23/22 Topiramate [Topamax] 25 mg PO BID 07/06/16 02/23/22 Atorvastatin [Lipitor] 40 mg PO DAILY 01/06/17 02/23/22 carvediloL [Coreg*] 12.5 mg PO BID 04/06/18 02/23/22 INSULIN ASPART (NovoLOG) [NovoLOG 12 unit SQ TID-W/MEALS 09/29/19 02/23/22 (formulary)] Pregabalin [Lyrica] 75 mg PO BID 09/29/19 02/23/22 amLODIPine [Norvasc] 10 mg PO DAILY 09/29/19 02/23/22 oxyCODONE-APAP 10-325MG [Percocet 1 tab PO Q6H PRN 09/29/19 02/23/22 10-325 mg] Aspirin EC [Ecotrin Low Dose] 81 mg PO DAILY 07/01/21 02/23/22 Insulin Glargine,Hum.rec.anlog 28 unit SQ HS 07/01/21 02/23/22 [Lantus Solostar Pen] Nystatin 100,000Unit/gm Cream 1 applic TOPICAL BID PRN 07/01/21 02/23/22 [Mycostatin Cream] Nystatin [Nystop] 1 applic TOPICAL BID PRN 07/01/21 02/23/22 Potassium Chloride [Potassium 10 meq PO DAILY PRN 07/01/21 02/23/22 Chloride ER] Furosemide [Lasix] 20 mg PO BID PRN 02/23/22 02/23/22 lisinopriL [Zestril] 2.5 mg PO DAILY 02/23/22 02/23/22 Allergies Allergy/AdvReac Type Severity Reaction Status Date / Time NSAIDS (Non-Steroidal Allergy Unknown Verified 02/23/22 20:28 Anti-Inflamma Review of Systems ROS Statement: Those systems with pertinent positive or pertinent negative responses have been documented in the HPI. ROS Other: All systems not noted in ROS Statement are negative. Past Medical History Past Medical History: CVA/TIA, Diabetes Mellitus, GERD/Reflux, Hyperlipidemia, Hypertension, Renal Disease, Rheumatoid Arthritis (RA), Sleep Apnea/CPAP/BIPAP Additional Past Medical History / Comment(s): CKD stage 3, broken Lt foot 2011- no sx, stroke 2004 affected non dominant lt side . lt side weaker than rt", vertigo, neck pain, mini stroke nov 2016. EARL and she has not used CPAP, RA, HTN, GERD, DM2 , right big toe ulcer. 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 Date of last positivie culture/infection: 09/27/20 MDRO Source:: LEG MRSA Past Surgical History: Breast Surgery, Cholecystectomy Additional Past Surgical History / Comment(s): breast biopsy, gastric sleeve 11/07/14, colonoscopy 04/14/14, bilateral cataract surgery Past Anesthesia/Blood Transfusion Reactions: Motion Sickness Past Psychological History: Depression Smoking Status: Never smoker Past Alcohol Use History: None Reported Past Drug Use History: None Reported - Past Family History Mother Family Medical History: Diabetes Mellitus Additional Family Medical History / Comment(s): heart attack, Brother of lung cancer 04/19/14 Father Family Medical History: Cancer Additional Family Medical History / Comment(s): lung cancer Brother(s) Family Medical History: Cancer Additional Family Medical History / Comment(s): LUNG General Exam Limitations: altered mental status (ANO x2, at baseline per patient's ) General appearance: alert, in no apparent distress, obese Head exam: Present: atraumatic, normocephalic Eye exam: Present: normal appearance, PERRL Pupils: Present: normal accommodation ENT exam: Present: normal exam, normal oropharynx, mucous membranes moist Neck exam: Present: normal inspection, full ROM Respiratory exam: Present: normal lung sounds bilaterally Cardiovascular Exam: Present: regular rate, normal rhythm, normal heart sounds GI/Abdominal exam: Present: soft, normal bowel sounds Extremities exam: Present: normal inspection, full ROM, pedal edema (Chronic lymphedema) Back exam: Present: normal inspection, full ROM Neurological exam: Present: alert, altered (ANOx2, at baseline per ) Psychiatric exam: Present: normal affect, normal mood Skin exam: Present: warm, dry Course Vital Signs 02/23/22 20:24 Temperature 98.6 F Pulse Rate 87 Respiratory 18 Rate Blood Pressure 136/77 O2 Sat by Pulse 97 Oximetry EKG Findings - EKG Comments: EKG Findings:: An EKG was obtained and was interpreted by myself showing a rate of 91, OR interval 173, QRS duration of 98 and QTC of 412. This EKG showed a normal sinus rhythm with no ST segment elevation or depression noted. There was some artifact secondary to the patient's shaking. Medical Decision Making - Medical Decision Making Was pt. sent in by a medical professional or institution ([facility], [facility], urgent care, hospital, or long term...) When possible be specific @ -No Did you speak to anyone other than the patient for history (EMS, parent, family, police, friend...)? What history was obtained from this source @ -Yes, EMS and patient's Did you review nursing and triage notes (agree or disagree)? Why? @ -I reviewed and agree with nursing and triage notes Were old charts reviewed (outside hosp., previous admission, EMS record, old EKG, old radiological studies, urgent care reports/EKG's, long term records)? Report findings @ -No old charts were reviewed Differential Diagnosis (chest pain, altered mental status, abdominal pain women, abdominal pain men, vaginal bleeding, weakness, fever, dyspnea, syncope, headache, dizziness, GI bleed, back pain, seizure, CVA, palpatations, mental health)? @ -Acute CVA, hyperammonemia, UTI EKG interpreted by me (3pts min.). @ -As above X-rays interpreted by me (1pt min.). @ -Chest x-ray and pelvis x-ray was obtained was interpreted by myself showing no acute fracture. CT interpreted by me (1pt min.). @ -CT head and CT C-spine were obtained and were interpreted by myself showing a cerebral atrophy. There was white matter hypodensity consistent with microvascular ischemia. There is a right internal capsular lacunar infarct which is a change compared to the old exam. There was no evidence of acute traumatic injury. There was no fracture noted in the cervical spine. U/S interpreted by me (1pt. min.). @ -None done What testing was considered but not performed or refused? (CT, X-rays, U/S, labs)? Why? @ -None What meds were considered but not given or refused? Why? @ -None Did you discuss the management of the patient with other professionals (professionals i.e. , PA, BOTTLE GAUGER, lab, RT, psych nurse, social services specialist, blow up operator, teacher, flight deck officer, dependency case manager)? Give summary @ -Yes, admitting team Was smoking cessation discussed for >3mins.? @ -No Was critical care preformed (if so, how long)? @ -No Were there social determinants of health that impacted care today? How? (Homelessness, low income, unemployed, alcoholism, drug addiction, transportation, low edu. Level, literacy, decrease access to med. care, skilled nursing, rehab)? @ -No Was there de-escalation of care discussed even if they declined (Discuss DNR or withdrawal of care, Hospice)? DNR status @ -No What co-morbidities impacted this encounter? (DM, HTN, Smoking, COPD, CAD, Cancer, CVA, ARF, Chemo, Hep., AIDS, mental health diagnosis, sleep apnea, morbid obesity)? @ -Diabetes, hypertension, altered mental status at baseline Was patient admitted / discharged? Hospital course, mention meds given and route, prescriptions, significant lab abnormalities, going to OR and other pertinent info. @ -The patient was seen and evaluated emergency department. Physical exam, the patient was resting in bed without any acute distress. Vital signs were stable. Laboratory workup was largely within normal limits however computed tomography scan showed signs of an acute lacunar infarct. The patient's last known normal was the on 24 hours prior therefore a code stroke was not called. Due to the patient's being found on the ground in the setting of an acute lacunar infarct, the patient will be admitted for further workup and evaluation on the stroke pathway. His primary care physician was being covered by [facility] and Eva Short was contacted and accepted the patient for admission. The patient and her were told this plan and was agreeable. The patient was admitted stable condition. Undiagnosed new problem with uncertain prognosis? @ -No Drug Therapy requiring intensive monitoring for toxicity (Heparin, Nitro, Insulin, Cardizem)? @ -No Were any procedures done? @ -No Diagnosis/symptom? @ -CVA Acute, or Chronic, or Acute on Chronic? @ -Acute Uncomplicated (without systemic symptoms) or Complicated (systemic symptoms)? @ -Complicated Side effects of treatment? @ -No Exacerbation, Progression, or Severe Exacerbation? @ -No Poses a threat to life or bodily function? How? (Chest pain, USA, PR, pneumonia, PE, COPD, DKA, ARF, appy, cholecystitis, CVA, Diverticulitis, Homicidal, Suicidal, threat to staff... and all critical care pts) @ -Yes, CVA causing a previous fall at home - Lab Data Result diagrams: 02/23/22 21:57 Lab Results 02/23/22 02/23/22 02/23/22 Range/Units 21:57 21:57 21:57 WBC 10.9 H (3.8-10.6) k/uL RBC 3.88 (3.80-5.40) m/uL Hgb 12.0 (11.4-16.0) gm/dL Hct 38.7 (34.0-46.0) % MCV 99.8 (80.0-100.0) fL MCH 30.9 (25.0-35.0) pg MCHC 31.0 (31.0-37.0) g/dL RDW 14.3 (11.5-15.5) % Plt Count 177 (150-450) k/uL MPV 9.0 Neutrophils % 89 % Lymphocytes % 5 % Monocytes % 5 % Eosinophils % 0 % Basophils % 0 % Neutrophils # 9.7 H (1.3-7.7) k/uL Lymphocytes # 0.6 L (1.0-4.8) k/uL Monocytes # 0.5 (0-1.0) k/uL Eosinophils # 0.0 (0-0.7) k/uL Basophils # 0.0 (0-0.2) k/uL Macrocytosis Slight VBG pH (7.31-7.41) VBG pCO2 (37-51) mmHg VBG HCO3 (24-28) mmol/L Plasma Lactic Acid Flex 1.6 (0.7-2.0) mmol/L Ammonia <9 (<30) umol/L Troponin I 0.018 (0.000-0.034) ng/mL 02/23/22 Range/Units 21:59 WBC (3.8-10.6) k/uL RBC (3.80-5.40) m/uL Hgb (11.4-16.0) gm/dL Hct (34.0-46.0) % MCV (80.0-100.0) fL MCH (25.0-35.0) pg MCHC (31.0-37.0) g/dL RDW (11.5-15.5) % Plt Count (150-450) k/uL MPV Neutrophils % % Lymphocytes % % Monocytes % % Eosinophils % % Basophils % % Neutrophils # (1.3-7.7) k/uL Lymphocytes # (1.0-4.8) k/uL Monocytes # (0-1.0) k/uL Eosinophils # (0-0.7) k/uL Basophils # (0-0.2) k/uL Macrocytosis VBG pH 7.30 L (7.31-7.41) VBG pCO2 47 (37-51) mmHg VBG HCO3 22 L (24-28) mmol/L Plasma Lactic Acid Flex (0.7-2.0) mmol/L Ammonia (<30) umol/L Troponin I (0.000-0.034) ng/mL Disposition Clinical Impression: Fall, CVA (cerebral vascular accident) Disposition: ADMITTED IP TO THIS [facility] Condition: Stable Referrals: Mere Rodriguez DO [Primary Care Provider] - 1-2 days Time of Disposition: 22:40 Decision to Admit Reason: Admit from EC Decision Date: 02/23/22 Decision Time: 22:40
[2022-02-23 22:28] LABS: Lactic Acid, Venous 1.6 mmol/L (0.7-2.0)
--- NOTE | 2022-02-23 22:30 | CT ---
EXAMINATION TYPE: CT brain cspine wo con DATE OF EXAM: 02/23/2022 COMPARISON: CT brain 06/05/2018. CT brain and cervical spine 01/06/2017 HISTORY: Possible undocumented fall. Pt poor historian, not able to answer if dental work can be marimar mere CT DLP: 1686.1 mGycm Automated exposure control for dose reduction was used. Images of the brain and cervical spine obtained without contrast. There is cerebral cortical atrophy. There is hypodensity in the white matter of both frontal lobes an d in the right internal capsule with 1.5 cm lacunar infarct. There is no mass effect or midline shift . No sign of intracranial hemorrhage. The cervical vertebra have normal alignment. There is some degenerative disc space narrowing at C5-6 and C6-7 with spurring of the endplates. There is mild encroachment on the spinal canal. There is maddy e mild bony spinal stenosis at C5-6. No compression fracture. Facet joints are intact. IMPRESSION: Cerebral atrophy. White matter hypodensity consistent with microvascular ischemia. There is right int ernal capsule lacunar infarct which is a change compared to the old exam. No evidence of acute trauma tic injury. Spondylosis in the lower cervical spine without change. No fracture.
--- NOTE | 2022-02-23 22:31 | XR ---
EXAMINATION TYPE: XR pelvis AP view DATE OF EXAM: 02/23/2022 COMPARISON: NONE HISTORY: Pain TECHNIQUE: Single view FINDINGS: The pelvic ring is intact. The proximal femurs and hip joints are intact. Sacroiliac joints are intact. IMPRESSION: Normal exam. No fracture.
[2022-02-23 22:32] LABS: Albumin 3.7 g/dL (3.5-5.0); Calcium 9.3 mg/dL (8.4-10.2); Magnesium 2.4 mg/dL (1.6-2.3); Potassium 5.3 mmol/L (3.5-5.1); Total Bilirubin 0.7 mg/dL (0.2-1.3)
--- NOTE | 2022-02-23 22:32 | XR ---
EXAMINATION TYPE: XR chest 1V portable DATE OF EXAM: 02/23/2022 COMPARISON: 06/30/2021 HISTORY: Fall. Pain TECHNIQUE: Single view FINDINGS: Heart and mediastinum are normal. Lungs are clear. Diaphragm is normal. Bony thorax is inta ct. IMPRESSION: Normal chest. No change.
[2022-02-23 22:37] LABS: Partial Thromboplastin Time 21.6 sec (22.0-30.0); Prothrombin Time 10.7 sec (9.0-12.0)
[2022-02-23] MEDS ORDERED: ASPIRIN 325 MG TAB PO STA (22:46)
[2022-02-23 22:54] LABS: Appearance,Urine Cloudy (Clear); Bilirubin,Urine Negative (Negative); Blood,Urine Moderate (Negative); Color,Urine Yellow; Glucose,Urine (UA) Trace (Negative); Hyaline Casts,Urine 10 /lpf (0-2); Ketones,Urine 1+ (Negative); Leukocyte Esterase,Urine Negative (Negative); Mucus,Urine Rare /hpf; Nitrite,Urine Negative (Negative); Protein,Urine Trace (Negative); RBC,Urine 1 /hpf (0-5); Specific Gravity,Urine 1.017 (1.001-1.035); Squamous Epithelial Cell,Urine 2 /hpf (0-4); Urobilinogen,Urine <2.0 mg/dL (<2.0); WBC,Urine 1 /hpf (0-5)
[2022-02-23] MEDS ORDERED: SODIUM CHLORIDE 0.9% 1,000 ML IV ONE (22:57)
--- NOTE | 2022-02-23 23:56 | US ---
EXAMINATION TYPE: US carotid duplex BILAT DATE OF EXAM: 02/23/2022 COMPARISON: NONE CLINICAL HISTORY: Stenosis. TECHNIQUE: Carotid duplex ultrasound examination. Indirect Doppler criteria was utilized. FINDINGS: EXAM MEASUREMENTS: RIGHT: Peak Systolic Velocity (PSV) cm/sec ----- Right CCA: 103.2 ----- Right ICA: 152.9 ----- Right ECA: 198 ICA/CCA ratio: 1.5 RIGHT: End Diastole cm/sec ----- Right CCA: 14.4 ----- Right ICA: 9.1 ----- Right ECA: 13.0 LEFT: Peak Systolic Velocity (PSV) cm/sec ----- Left CCA: 118.9 ----- Left ICA: 143.1 ----- Left ECA: 270.3 ICA/CCA ratio: 1.2 LEFT: End Diastole cm/sec ----- Left CCA: 12.3 ----- Left ICA: 10.7 ----- Left ECA: 8.4 VERTEBRALS (direction of flow): Right Vertebral: Antegrade Left Vertebral: Antegrade Rhythm: Normal [employer] PROGRAM COORDINATOR NOTES: Patient had trouble holding still for technologist, technically difficult study, more difficult on le ft. Moderate plaque,mildly elevated CCA velocities proximal and mid, mild velocity elevation in bila teral ICA's IMPRESSION: 50-69% stenosis on the bilateral carotid bifurcation by peak systolic velocity. Criteria for Assigning % of Stenosis / Diameter reduction (Estimation based on the indirect measurements of the internal carotid artery velocities (ICA PSV). 1. Normal (no stenosis)=ICA PSV < 125 cm/s: ratio < 2.0: ICA EDV<40 cm/s. 2. Less than 50% stenosis=ICA PSV < 125 cm/s: ratio < 2.0: ICA EDV<40 cm/s. 3. 50 to 69% stenosis=ICA PSV of 125 to 230 cm/s: ration 2.0 ? 4.0: ICA EDV 40-100 cm/s. 4. Greater than 70% stenosis to near occlusion= ICA PSV > 230 cm/s: ratio > 4.0: ICA EDV > 100 cm/s. 5. Near occlusion= ICA PSV velocities may be low or undetectable: variable ratio and ICA EDV. 6. Total occlusion=unable to detect flow.
[2022-02-24] MEDS: oxyCODONE-APAP 10-325MG 1 EACH TAB PO PRN ×2 (02:02→10:25)
[2022-02-24 06:13] LABS: Glucose,Whole Blood 182 mg/dL (70-110)
[2022-02-24] MEDS: INSULIN ASPART (NovoLOG) 100 UNIT/ML VIAL SQ SCH ×3 (07:04→17:01)
[2022-02-24] MEDS: ASPIRIN 81 MG PO SCH (08:35)
[2022-02-24] MEDS: PREGABALIN 75 MG CAP PO SCH ×2 (08:35→20:00)
[2022-02-24] MEDS: FAMOTIDINE 20 MG TAB PO SCH (08:36)
[2022-02-24] MEDS: ATORVASTATIN 40 MG TAB PO SCH (08:36)
[2022-02-24] MEDS: DULoxetine HCL 60 MG CAPSULE.DR PO SCH ×2 (08:36→20:01)
[2022-02-24] MEDS: carvediloL 12.5 MG TAB PO SCH ×2 (08:36→20:01)
[2022-02-24 08:52] LABS: Chol/HDL Ratio 3.05 Ratio; LDL Cholesterol,Calculated 39.2 mg/dL (0.0-131.0)
[2022-02-24] MEDS ORDERED: ACETAMINOPHEN TAB 325 MG TAB PO PRN (10:44)
[2022-02-24 11:59] LABS: Glucose,Whole Blood 176 mg/dL (70-110)
--- NOTE | 2022-02-24 14:10 | P.HPIM ---
History of Present Illness 66-year-old female was brought in because a of altered mental status patient was found down. Patient does have history of chronic kidney disease with baseline creatinine of 1. present creatinine is 1.9 patient is on Percocet Lyrica and some other medications that can cause confusion particularly in renal failure patients. Patient is alert oriented 3 presently at her baseline. Patient also has mild hyperkalemia secondary to lisinopril which is being held at this time patient does have bilateral lower extremity edema chronic venous stasis, lymphedema. Patient has mild leukocytosis without any fevers no evidence of a cellulitis at this time. Patient had a CT of the chest because of altered mental status which showed white matter hypodensity consistent with microvascular ischemia and an infarct in the internal capsular area, although these lesions appear to be chronic rather acute, discussed with the neurologist with. Because of her symptomology that is not not consistent with CVA and chronic nature and the CT of the head for these lesions MRI was discontinued. Patient had a carotid Doppler showed around 50-65% stenosis bilaterally. REVIEW OF SYSTEMS: CONSTITUTIONAL: No fever, no malaise, no fatigue. HEENT: No recent visual problems or hearing problems. Denied any sore throat. CARDIOVASCULAR: No chest pain, orthopnea, PND, no palpitations, no syncope. PULMONARY: No shortness of breath, no cough, no hemoptysis. GASTROINTESTINAL: No diarrhea, no nausea, no vomiting, no abdominal pain. NEUROLOGICAL: No headaches, no weakness, no numbness. HEMATOLOGICAL: Denies any bleeding or petechiae. GENITOURINARY: Denies any burning micturition, frequency, or urgency. MUSCULOSKELETAL/RHEUMATOLOGICAL: Denies any joint pain, swelling, or any muscle pain. ENDOCRINE: Denies any polyuria or polydipsia. The rest of the 14-point review of systems is negative. PHYSICAL EXAMINATION: GENERAL: The patient is alert and oriented x3, not in any acute distress. Obese HEENT: Pupils are round and equally reacting to light. EOMI. No scleral icterus. No conjunctival pallor. Normocephalic, atraumatic. No pharyngeal erythema. No thyromegaly. CARDIOVASCULAR: S1 and S2 present. No murmurs, rubs, or gallops. PULMONARY: Chest is clear to auscultation, no wheezing or crackles. ABDOMEN: Soft, nontender, nondistended, normoactive bowel sounds. No palpable organomegaly. MUSCULOSKELETAL: No joint swelling or deformity. EXTREMITIES: No cyanosis, clubbing, bilateral chronic lymphedema NEUROLOGICAL: Gross neurological examination did not reveal any focal deficits. SKIN: Bilateral lower extremity redness chronic venous stasis without any cellulitis this at local is of temperature Assessment and plan: High probability mental status secondary to medications particularly oxycodone a renal failure patient, oxycodone will be discontinued there is no evidence of acute stroke patient has old lacunar stroke in the internal capsular area. -Leukocytosis reactive without any evidence of infection -Acute renal failure secondary to diuretics patient does have chronic kidney disease stage III with baseline creatinine of 1.2 secondary to diabetic nephropathy Heparin type 2 diabetes mellitus -Hyperkalemia secondary to lisinopril which is being held -Obesity sleep apnea -History of CVA/TIA in the past for which patient will be continued on aspirin and a statin DVT prophylaxis: Lovenox Past Medical History Past Medical History: CVA/TIA, Diabetes Mellitus, GERD/Reflux, Hyperlipidemia, Hypertension, Renal Disease, Rheumatoid Arthritis (RA), Sleep Apnea/CPAP/BIPAP Additional Past Medical History / Comment(s): CKD stage 3, broken Lt foot 2011- no sx, stroke 2004 affected non dominant lt side . lt side weaker than rt", vertigo, neck pain, mini stroke nov 2016. EARL and she has not used CPAP, RA, HTN, GERD, DM2 , right big toe ulcer. 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 2 adult children. No tobacco or alcohol use. No experience. No international travel. Pet cats at home they are not new. Used to work in a care of handicapped persons Smoking Status: Never smoker Past Alcohol Use History: None Reported Past Drug Use History: None Reported - Past Family History Mother Family Medical History: Diabetes Mellitus Additional Family Medical History / Comment(s): heart attack, Brother of lung cancer 04/19/14 Father Family Medical History: Cancer Additional Family Medical History / Comment(s): lung cancer Brother(s) Family Medical History: Cancer Additional Family Medical History / Comment(s): LUNG Medications and Allergies Home Medications Medication Instructions Recorded Confirmed Type DULoxetine HCL [Cymbalta] 60 mg PO BID 09/30/13 02/23/22 History calcitrioL [Calcitriol] 0.5 mcg PO DAILY 09/30/13 02/23/22 History Topiramate [Topamax] 25 mg PO BID 07/06/16 02/23/22 History Atorvastatin [Lipitor] 40 mg PO DAILY 01/06/17 02/23/22 History carvediloL [Coreg*] 12.5 mg PO BID 04/06/18 02/23/22 History INSULIN ASPART (NovoLOG) [NovoLOG 12 unit SQ TID-W/MEALS 09/29/19 02/23/22 Hi story (formulary)] Pregabalin [Lyrica] 75 mg PO BID 09/29/19 02/23/22 History amLODIPine [Norvasc] 10 mg PO DAILY 09/29/19 02/23/22 History oxyCODONE-APAP 10-325MG [Percocet 1 tab PO Q6H PRN 09/29/19 02/23/22 History 10-325 mg] Aspirin EC [Ecotrin Low Dose] 81 mg PO DAILY 07/01/21 02/23/22 History Insulin Glargine,Hum.rec.anlog 28 unit SQ HS 07/01/21 02/23/22 History [Lantus Solostar Pen] Nystatin 100,000Unit/gm Cream 1 applic TOPICAL BID PRN 07/01/21 02/23/22 History [Mycostatin Cream] Nystatin [Nystop] 1 applic TOPICAL BID PRN 07/01/21 02/23/22 History Potassium Chloride [Potassium 10 meq PO DAILY PRN 07/01/21 02/23/22 History Chloride ER] Furosemide [Lasix] 20 mg PO BID PRN 02/23/22 02/23/22 History lisinopriL [Zestril] 2.5 mg PO DAILY 02/23/22 02/23/22 History Allergies Allergy/AdvReac Type Severity Reaction Status Date / Time NSAIDS (Non-Steroidal Allergy Unknown Verified 02/23/22 20:28 Anti-Inflamma Physical Exam Vitals: Vital Signs Temp Pulse Pulse Resp BP BP Pulse Ox 02/24/22 12:25 85 18 116/66 93 L 02/24/22 10:37 94 18 02/24/22 08:32 98.8 F 94 18 131/69 95 02/24/22 04:00 98.2 F 91 18 132/72 98 02/24/22 03:49 100 16 02/24/22 02:00 97.4 F L 100 16 145/65 99 02/24/22 00:20 93 16 126/62 95 02/23/22 20:24 98.6 F 87 18 136/77 97 Intake and Output 02/23/22 02/24/22 02/24/22 22:59 06:59 14:59 Intake Total 118 Output Total 400 Balance -282 Intake: Oral 118 Output: Urine 400 Other: Voiding Method External Catheter External Catheter # Voids 1 Weight 117.934 kg 117.934 kg Results CBC & Chem 7: 02/23/22 21:57 02/23/22 21:57 Labs: Abnormal Lab Results - Last 24 Hours (Table) 02/23/22 02/23/22 02/23/22 Range/Units 21:57 21:57 21:57 WBC 10.9 H (3.8-10.6) k/uL Neutrophils # 9.7 H (1.3-7.7) k/uL Lymphocytes # 0.6 L (1.0-4.8) k/uL APTT 21.6 L (22.0-30.0) sec VBG pH (7.31-7.41) VBG HCO3 (24-28) mmol/L Potassium 5.3 H (3.5-5.1) mmol/L BUN 55 H (7-17) mg/dL Creatinine 1.98 H (0.52-1.04) mg/dL Glucose 219 H (74-99) mg/dL POC Glucose (mg/dL) (70-110) mg/dL Magnesium 2.4 H (1.6-2.3) mg/dL AST 84 H (14-36) U/L Creatine Kinase 4184 H* (30-135) U/L Triglycerides (0.00-149.00) mg/dL HDL Cholesterol (40.00-60.00) mg/dL Urine Appearance (Clear) Urine Protein (Negative) Urine Glucose (UA) (Negative) Urine Ketones (Negative) Urine Blood (Negative) Hyaline Casts (0-2) /lpf Urine Mucus (None) /hpf 02/23/22 02/23/22 02/24/22 Range/Units 21:57 21:59 06:12 WBC (3.8-10.6) k/uL Neutrophils # (1.3-7.7) k/uL Lymphocytes # (1.0-4.8) k/uL APTT (22.0-30.0) sec VBG pH 7.30 L (7.31-7.41) VBG HCO3 22 L (24-28) mmol/L Potassium (3.5-5.1) mmol/L BUN (7-17) mg/dL Creatinine (0.52-1.04) mg/dL Glucose (74-99) mg/dL POC Glucose (mg/dL) 182 H (70-110) mg/dL Magnesium (1.6-2.3) mg/dL AST (14-36) U/L Creatine Kinase (30-135) U/L Triglycerides (0.00-149.00) mg/dL HDL Cholesterol (40.00-60.00) mg/dL Urine Appearance Cloudy H (Clear) Urine Protein Trace H (Negative) Urine Glucose (UA) Trace H (Negative) Urine Ketones 1+ H (Negative) Urine Blood Moderate H (Negative) Hyaline Casts 10 H (0-2) /lpf Urine Mucus Rare H (None) /hpf 02/24/22 02/24/22 Range/Units 06:16 11:46 WBC (3.8-10.6) k/uL Neutrophils # (1.3-7.7) k/uL Lymphocytes # (1.0-4.8) k/uL APTT (22.0-30.0) sec VBG pH (7.31-7.41) VBG HCO3 (24-28) mmol/L Potassium (3.5-5.1) mmol/L BUN (7-17) mg/dL Creatinine (0.52-1.04) mg/dL Glucose (74-99) mg/dL POC Glucose (mg/dL) 176 H (70-110) mg/dL Magnesium (1.6-2.3) mg/dL AST (14-36) U/L Creatine Kinase (30-135) U/L Triglycerides 177.00 H (0.00-149.00) mg/dL HDL Cholesterol 36.40 L (40.00-60.00) mg/dL Urine Appearance (Clear) Urine Protein (Negative) Urine Glucose (UA) (Negative) Urine Ketones (Negative) Urine Blood (Negative) Hyaline Casts (0-2) /lpf Urine Mucus (None) /hpf Thrombosis Risk Factor Assmnt - Choose All That Apply Each Factor Represents 1 point: Obesity (BMI >25), Swollen legs (current) Each Risk Factor Represents 2 Points: Age 61-74 years Other congenital or acquired thrombophilia - If yes, enter type in comment: No Each Risk Factor Represents 5 Points: Stroke (< 1 month) Thrombosis Risk Factor Assessment Total Risk Factor Score: 9 Thrombosis Risk Factor Assessment Level: High Risk
[2022-02-24 14:45] VITALS: BMI 37.3
[2022-02-24 16:55] LABS: Glucose,Whole Blood 148 mg/dL (70-110)
[2022-02-24] MEDS: HEPARIN SODIUM,PORCINE/PF 5,000 UNIT/0.5 ML SYRINGE SQ SCH ×2 (16:56→23:07)
[2022-02-24] MEDS: traMADol 50 MG TAB PO PRN ×2 (17:00→23:07)
--- NOTE | 2022-02-24 17:47 | CA ---
Transthoracic Echo Report Name: Alma Vivar Age: 66 Gender: F : 1955 Exam Date: 02/24/2022 11:17 Exam Location: [facility] Ht (in): 60 Wt (lb): 260 Ordering Physician: Dihn Dempsey MD Attending/Referring Phys: Purchasing Clerk Caryl Kemp RDCS Procedure CPT: Indications: Thrombus Cardiac Hx: Morbid Obesity Technical Quality: Contrast 1: Total Dose (mL): Contrast 2: Total Dose (mL): MEASUREMENTS (Male / Female) Normal Values 2D ECHO LV Diastolic Diameter PLAX 4.6 cm 4.2 - 5.9 / 3.9 - 5.3 cm LV Systolic Diameter PLAX 3.2 cm IVS Diastolic Thickness 1.0 cm 0.6 - 1.0 / 0.6 - 0.9 cm LVPW Diastolic Thickness 1.5 cm 0.6 - 1.0 / 0.6 - 0.9 cm LV Relative Wall Thickness 0.5 RV Internal Dim ED PLAX 3.2 cm LA Systolic Diameter LX 4.3 cm 3.0 - 4.0 / 2.7 - 3.8 cm M-MODE Aortic Root Diameter MM 3.1 cm LA Systolic Diameter MM 4.9 cm LA Ao Ratio MM 1.6 MV E Point Septal Separation 0.3 cm AV Cusp Separation MM 2.4 cm DOPPLER MV Area PHT 2.7 cm??? Mitral E Point Velocity 74.0 cm/s Mitral A Point Velocity 72.9 cm/s Mitral E to A Ratio 1.0 MV Deceleration Time 278.7 ms MV E' Velocity 6.2 cm/s Mitral E to MV E' Ratio 11.9 TR Peak Velocity 356.1 cm/s TR Peak Gradient 57.9 mmHg Right Ventricular Systolic Press 62.9 mmHg FINDINGS Left Ventricle Left ventricular ejection fraction is estimated at 55%. Left ventricular cavity size normal. Right Ventricle Normal right ventricular size and function. Moderate pulmonary hypertension. Right Atrium Normal right atrial size. Left Atrium Moderately increased left atrial diameter. Mitral Valve Structurally normal mitral valve. Mild mitral regurgitation. Aortic Valve Trileaflet aortic valve. Aortic valve sclerosis. Tricuspid Valve Structurally normal tricuspid valve. Mild tricuspid regurgitation. Pulmonic Valve Pulmonic valve not well visualized. Pericardium Echo free space anterior to the right ventricle likely represents a fat pad. Aorta Normal size aortic root and proximal ascending aorta. CONCLUSIONS Normal LV size and systolic function Moderate pulmonary hypertension Left atrial enlargement No intracardiac masses Mitral annular calcification Previewed by: Dr. Elmer Rosas MD (Electronically Signed) Final Date: 24 February 2022 17:47
--- NOTE | 2022-02-24 18:05 | P.CNNES ---
History of Present Illness Consult date: 02/24/22 Requesting physician: Dinh Dempsey Reason for Consult: cva History of Present Illness: This is a 66-year-old woman who presented emergency department after the patient was found down by EMS. History is obtained from medical record. Neurology is consulted for stroke. Patient could not tell me what transpired. It seems the patient was found the down on the ground near her kitchen by EMS and was altered. It seems to the patient's when he came back he found that the patient on the floor and he was in the away from the house for this weekend. She presented confused initially to our the emergency department and it seems that she was back to baseline per the ED team. It seems that she is alert oriented 2 per ED upon improvement. It seems that the patient is on oxycodone, Lyrica at home. Her only patient denies of any headache, nausea vomiting, she denies of any focal weakness. Some of the workup during his hospital visit consisted of: CT of the head is reported as cerebral atrophy. White matter hypodensity consistent with microvascular ischemia. There is is right internal capsule lacunar infarct which is a change compared to old exam. No evidence of acute traumatic injury. The old exam was last in 2019. I personally reviewed the CT and the right lacunar internal capsule looks old and does not look acute or subacute. I do not appreciate any acute or subacute ischemia and there is no bleed. CT cervical spine was reported as spondylosis in the lower cervical spine without change. No fracture. Carotid duplex is reported as 56 9% stenosis in bilateral internal carotid bifurcation by peak systolic velocity. No stroke code per the ED team since they felt the last normal was more than 24 hours and the risk outweigh benefits of TPA CK level is 4184 Lipid panel is a triglyceride 177, cholesterol 111, LDLs 39 and HDL 36 Calcium 9.3, AST of 84 ALT of 30 Ammonia is less than 9. Potassium 5.3, creatinine is 1.98 and BUN 55. Initial serum glucose is 219 Magnesium is 2.4 Review of Systems Review of system: The 12 point system was reviewed and apparent positive and negative per HPI. Past Medical History Past Medical History: CVA/TIA, Diabetes Mellitus, GERD/Reflux, Hyperlipidemia, Hypertension, Renal Disease, Rheumatoid Arthritis (RA), Sleep Apnea/CPAP/BIPAP Additional Past Medical History / Comment(s): CKD stage 3, broken Lt foot 2011- no sx, stroke 2004 affected non dominant lt side . lt side weaker than rt", vertigo, neck pain, mini stroke nov 2016. EARL and she has not used CPAP, RA, HTN, GERD, DM2 , right big toe ulcer. 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 2 adult children. No tobacco or alcohol use. No experience. No international travel. Pet cats at home they are not new. Used to work in a care of handicapped persons Smoking Status: Never smoker Past Alcohol Use History: None Reported Past Drug Use History: None Reported - Past Family History Mother Family Medical History: Diabetes Mellitus Additional Family Medical History / Comment(s): heart attack, Brother of l boyd cancer 04/19/14 Father Family Medical History: Cancer Additional Family Medical History / Comment(s): lung cancer Brother(s) Family Medical History: Cancer Additional Family Medical History / Comment(s): LUNG Medications and Allergies Home Medications Medication Instructions Recorded Confirmed Type DULoxetine HCL [Cymbalta] 60 mg PO BID 09/30/13 02/23/22 History calcitrioL [Calcitriol] 0.5 mcg PO DAILY 09/30/13 02/23/22 History Topiramate [Topamax] 25 mg PO BID 07/06/16 02/23/22 History Atorvastatin [Lipitor] 40 mg PO DAILY 01/06/17 02/23/22 History carvediloL [Coreg*] 12.5 mg PO BID 04/06/18 02/23/22 History INSULIN ASPART (NovoLOG) [NovoLOG 12 unit SQ TID-W/MEALS 09/29/19 02/23/22 History (formulary)] Pregabalin [Lyrica] 75 mg PO BID 09/29/19 02/23/22 History amLODIPine [Norvasc] 10 mg PO DAILY 09/29/19 02/23/22 History oxyCODONE-APAP 10-325MG [Percocet 1 tab PO Q6H PRN 09/29/19 02/23/22 History 10-325 mg] Aspirin EC [Ecotrin Low Dose] 81 mg PO DAILY 07/01/21 02/23/22 History Insulin Glargine,Hum.rec.anlog 28 unit SQ HS 07/01/21 02/23/22 History [Lantus Solostar Pen] Nystatin 100,000Unit/gm Cream 1 applic TOPICAL BID PRN 07/01/21 02/23/22 History [Mycostatin Cream] Nystatin [Nystop] 1 applic TOPICAL BID PRN 07/01/21 02/23/22 History Potassium Chloride [Potassium 10 meq PO DAILY PRN 07/01/21 02/23/22 History Chloride ER] Furosemide [Lasix] 20 mg PO BID PRN 02/23/22 02/23/22 History lisinopriL [Zestril] 2.5 mg PO DAILY 02/23/22 02/23/22 History Allergies Allergy/AdvReac Type Severity Reaction Status Date / Time NSAIDS (Non-Steroidal Allergy Unknown Verified 02/23/22 20:28 Anti-Inflamma Physical Examination - Vital Signs Vital Signs: Vital Signs Temp Pulse Pulse Resp BP BP Pulse Ox 02/24/22 12:25 85 18 116/66 93 L 02/24/22 10:37 94 18 02/24/22 08:32 98.8 F 94 18 131/69 95 02/24/22 04:00 98.2 F 91 18 132/72 98 02/24/22 03:49 100 16 02/24/22 02:00 97.4 F L 100 16 145/65 99 02/24/22 00:20 93 16 126/62 95 02/23/22 20:24 98.6 F 87 18 136/77 97 Intake and Output 02/23/22 02/24/22 02/24/22 22:59 06:59 14:59 Intake Total 118 Output Total 400 Balance -282 Intake: Oral 118 Output: Urine 400 Other: Voiding Method External Catheter External Catheter # Voids 1 Weight 117.934 kg 117.934 kg GENERAL: The patient is lying in bed and is not in acute distress. CHEST: The heart rate is regular rate rhythm. No murmurs to auscultation. LUNG: Clear to auscultation bilaterally no wheezing noted throughout. Not labored breathing. ABDOMEN/GI: Bowel sounds present in all 4 quadrants. No tenderness to palpation throughout. NEUROLOGICAL: Higher mental function: The patient is awake, alert, oriented to self, place and time. She is moderately slow responding to questions. Patient is following simple commands. No aphasia and no neglect. Cranial nerves: The pupils are round, equal and reactive to light. Visual raphael are full to confrontation throughout. Extraocular movement is intact no nystagmus is noted. Facial sensation is normal to touch throughout. The facial strength is normal throughout. Hearing is moderately decreased bilaterally to hand rub. Tongue is midline and moved [id number] without any difficulty. No dysarthria is noted. Shoulder shrug is normal bilaterally. Motor: The strength is 5 over 5 throughout uppers while lowers are also no focality and had antigravity but has some limitation since has severe bilateral lymphedema. Normal tone and bulk. Cerebellum: Normal finger to nose bilaterally. Sensation: Sensation is normal to touch throughout. Reflexes (right/left): 1+ throughout. Plantars are mute bilaterally. Results - Laboratory Findings CBC and BMP: 02/23/22 21:57 02/23/22 21:57 Abnormal Lab Findings: Abnormal Labs 02/23/22 02/23/22 02/23/22 21:57 21:57 21:57 WBC 10.9 H Neutrophils # 9.7 H Lymphocytes # 0.6 L APTT 21.6 L VBG pH VBG HCO3 Potassium 5.3 H BUN 55 H Creatinine 1.98 H Glucose 219 H POC Glucose (mg/dL) Magnesium 2.4 H AST 84 H Creatine Kinase 4184 H* Triglycerides HDL Cholesterol Urine Appearance Urine Protein Urine Glucose (UA) Urine Ketones Urine Blood Hyaline Casts Urine Mucus 02/23/22 02/23/22 02/24/22 21:57 21:59 06:12 WBC Neutrophils # Lymphocytes # APTT VBG pH 7.30 L VBG HCO3 22 L Potassium BUN Creatinine Glucose POC Glucose (mg/dL) 182 H Magnesium AST Creatine Kinase Triglycerides HDL Cholesterol Urine Appearance Cloudy H Urine Protein Trace H Urine Glucose (UA) Trace H Urine Ketones 1+ H Urine Blood Moderate H Hyaline Casts 10 H Urine Mucus Rare H 02/24/22 02/24/22 06:16 11:46 WBC Neutrophils # Lymphocytes # APTT VBG pH VBG HCO3 Potassium BUN Creatinine Glucose POC Glucose (mg/dL) 176 H Magnesium AST Creatine Kinase Triglycerides 177.00 H HDL Cholesterol 36.40 L Urine Appearance Urine Protein Urine Glucose (UA) Urine Ketones Urine Blood Hyaline Casts Urine Mucus Assessment and Plan Assessment: Confusion and the patient was found down the home. Patient confusion likely due to metabolic encephalopathy also due to likely medication effect (oxycodone and Lyrica with CKD)--improving. Old right lacunar infarct basal ganglia on recent CT Patient was found down on the floor at home and unsure exact cause solely due to metabolic or other causes. Hyperkalemia Bilateral carotid stenosis of 50-69 on carotid duplex His tree of stroke/TIA Diabetes mellitus Hypertension Sleep apnea Chronic kidney insufficiency Rheumatoid arthritis Lymphedema lower extremity Plan: Again I personally reviewed the CT of the head and I felt the right basal ganglia the stroke seems old and not acute or subacute. Recommend MRI of the brain to rule out any acute/subacute stroke but primary team does not feel it is needed. Recommend vascular surgery team evaluation for carotid stenosis 50-69% on carotid duplex Patient continues to have confusion recommend the routine EEG to rule out any active seizure or epileptiform discharges Consider orthostatic vitals if the patient is able to stand up and cooperate for the examination. Recommend repeating CK level tomorrow. She is on aspirin 81 mg daily, Lipitor 40 mg daily and that sufficient for sec ondary stroke prophylaxis Recommend avoiding oxycodone and if possible slowly taper the Lyrica as much as possible which can build up the inpatient with that chronic kidney disease and that leads confusion. We'll defer the rest of the medical management to primary team The plan was discussed with the patient's primary team and nurse Thank you for the consultation Time with Patient: Greater than 30
[2022-02-24] MEDS: NYSTATIN 100,000 UNIT/GM POWD 15 GM TOPICAL PRN ×2 (18:22→20:04)
[2022-02-24] MEDS: TOPIRAMATE 25 MG TAB PO SCH (20:01)
[2022-02-24 20:37] LABS: Glucose,Whole Blood 135 mg/dL (70-110)
[2022-02-24] MEDS ORDERED: oxyCODONE-APAP 10-325MG 1 EACH TAB PO SCH (21:00)
[2022-02-24] MEDS ORDERED: INSULIN DETEMIR (LEVEMIR) 100 UNIT/ML SYR SQ SCH (21:00)
[2022-02-25 04:24] VITALS: RESP 18
[2022-02-25 06:17] LABS: Glucose,Whole Blood 62 mg/dL (70-110)
[2022-02-25 06:39] LABS: Glucose,Whole Blood 99 mg/dL (70-110)
[2022-02-25] MEDS: INSULIN ASPART (NovoLOG) 100 UNIT/ML VIAL SQ SCH ×2 (06:50→15:05)
[2022-02-25 08:37] VITALS: TEMP 98
[2022-02-25] MEDS: carvediloL 12.5 MG TAB PO SCH (08:38)
[2022-02-25] MEDS: FAMOTIDINE 20 MG TAB PO SCH (08:38)
[2022-02-25] MEDS: DULoxetine HCL 60 MG CAPSULE.DR PO SCH (08:38)
[2022-02-25] MEDS: ATORVASTATIN 40 MG TAB PO SCH (08:38)
[2022-02-25] MEDS: HEPARIN SODIUM,PORCINE/PF 5,000 UNIT/0.5 ML SYRINGE SQ SCH (08:38)
[2022-02-25] MEDS: PREGABALIN 75 MG CAP PO SCH (08:38)
[2022-02-25] MEDS: TOPIRAMATE 25 MG TAB PO SCH (08:38)
[2022-02-25] MEDS: ASPIRIN 81 MG PO SCH (08:38)
[2022-02-25] MEDS: traMADol 50 MG TAB PO PRN (08:43)
[2022-02-25 09:36] LABS: Calcium 8.4 mg/dL (8.4-10.2); Potassium 4.2 mmol/L (3.5-5.1)
[2022-02-25 11:40] LABS: Glucose,Whole Blood 102 mg/dL (70-110)
[2022-02-25 12:15] VITALS: BP 118/68; PULSE 61
--- NOTE | 2022-02-25 14:44 | P.PN ---
Subjective Progress Note Date: 02/25/22 I am following-up seeing this patient. According to the nurse she was evaluated by physical therapist and could not get out of bed since was dizzy so as result was not discharged. Otherwise no new neurological issues. Objective - Vital Signs Vital signs: Vital Signs Temp 98.0 F 02/25/22 08:34 Pulse 61 02/25/22 12:14 Resp 18 02/25/22 12:14 BP 118/68 02/25/22 12:14 Pulse Ox 92 L 02/25/22 12:14 FiO2 21 02/24/22 19:31 Intake & Output 02/24/22 02/25/22 02/25/22 18:59 06:59 18:59 Intake Total 118 Output Total 1300 500 250 Balance -1182 -500 -250 Weight 117.934 kg 97.1 kg Intake: Oral 118 Output: Urine 1300 500 250 Other: Voiding Method External Catheter External Catheter External Catheter - Exam GENERAL: The patient is lying in bed and is not in acute distress. NEUROLOGICAL: Higher mental function: The patient is awake, alert, oriented to self, place and time. She is mildly slow responding to questions. Patient is following simple commands. No aphasia and no neglect. Cranial nerves: The pupils are round, equal and reactive to light. Visual raphael are full to confrontation throughout. Extraocular movement is intact no nystagmus is noted. Facial sensation is normal to touch throughout. The facial strength is normal throughout. Hearing is moderately decreased bilaterally to hand rub. Tongue is midline and moved [id number] without any difficulty. No dysarthria is noted. Shoulder shrug is normal bilaterally. Motor: The strength is 5 over 5 throughout uppers while lowers are also no focality and had antigravity but has some limitation since has severe bilateral lymphedema. Normal tone and bulk. Cerebellum: Normal finger to nose bilaterally. Sensation: Sensation is normal to touch throughout. Reflexes (right/left): 1+ throughout. Plantars are mute bilaterally. Some of the workup during his hospital visit consisted of: CT of the head is reported as cerebral atrophy. White matter hypodensity consistent with microvascular ischemia. There is is right internal capsule lacunar infarct which is a change compared to old exam. No evidence of acute traumatic injury. The old exam was last in 2019. I personally reviewed the CT and the right lacunar internal capsule looks old and does not look acute or subacute. I do not appreciate any acute or subacute ischemia and there is no bleed. CT cervical spine was reported as spondylosis in the lower cervical spine without change. No fracture. Carotid duplex is reported as 56 9% stenosis in bilateral internal carotid bifurcation by peak systolic velocity. No stroke code per the ED team since they felt the last normal was more than 24 hours and the risk outweigh benefits of TPA CK level is 4184 and rpeat level is 2645 Ammonia level <9 TSH: 1.30 Lipid panel is a triglyceride 177, cholesterol 111, LDLs 39 and HDL 36 Calcium 9.3, AST of 84 ALT of 30 Ammonia is less than 9. Potassium 5.3, creatinine is 1.98 and BUN 55. Initial serum glucose is 219 Magnesium is 2.4 - Labs CBC & Chem 7: 02/23/22 21:57 02/25/22 08:56 Labs: Abnormal Lab Results - Last 24 Hours (Table) 02/24/22 02/24/22 02/24/22 Range/Units 06:16 16:49 20:35 Chloride (98-107) mmol/L BUN (7-17) mg/dL Creatinine (0.52-1.04) mg/dL POC Glucose (mg/dL) 148 H 135 H (70-110) mg/dL Creatine Kinase 2645 H* (26-186) U/L 02/25/22 02/25/22 Range/Units 06:16 08:56 Chloride 111 H (98-107) mmol/L BUN 33 H (7-17) mg/dL Creatinine 1.33 H (0.52-1.04) mg/dL POC Glucose (mg/dL) 62 L (70-110) mg/dL Creatine Kinase (26-186) U/L Assessment and Plan Assessment: Confusion and the patient was found down the home. Patient confusion likely due to metabolic encephalopathy also due to likely medication effect (oxycodone and Lyrica with CKD)--improving. 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 Hyperkalemia Bilateral carotid stenosis of 50-69 on carotid duplex His tree of stroke/TIA Diabetes mellitus Hypertension Sleep apnea Chronic kidney insufficiency Rheumatoid arthritis Lymphedema lower extremity Plan: Again I personally reviewed the CT of the head and I felt the right basal ganglia the stroke seems old and not acute or subacute. Recommend MRI of the brain to rule out any acute/subacute stroke but primary team does not feel it is needed. Recommend vascular surgery team evaluation for carotid stenosis 50-69% on carotid duplex Patient continues to have confusion recommend the routine EEG to rule out any active seizure or epileptiform discharges Consider orthostatic vitals if the patient is able to stand up and cooperate for the examination. Recommend repeating CK level tomorrow. She is on aspirin 81 mg daily, Lipitor 40 mg daily and that sufficient for secondary stroke prophylaxis Recommend avoiding oxycodone and if possible slowly taper the Lyrica as much as possible which can build up the inpatient with that chronic kidney disease and that leads confusion. We'll defer the rest of the medical management to primary team From neurological perspective, will sign off since primary team does not feel our team is needed and does not feel any neurological work-up is needed. Please reconsult if needed. The plan is discussed with her nurse. Time with Patient: Less than 30
--- NOTE | 2022-02-26 15:53 | P.DS ---
Providers Date of admission: 02/23/22 22:46 Expected date of discharge: 02/25/22 Attending physician: Lilibeth Chong Consults: 02/23/22 22:47 Consult Physician Routine Consulting Provider: Berny Keller Consult Reason/Comments: CVA Do you want consulting provider notified?: Yes, Notify in am Primary care physician: Mere Rabago Hospital Course: Final diagnosis -Acute altered mental status secondary to medications particularly oxycodone. there is no evidence of acute stroke patient has old lacunar stroke in the internal capsular area. -Leukocytosis reactive without any evidence of infection -Acute renal failure secondary to diuretics patient does have chronic kidney disease stage III with baseline creatinine of 1.2 secondary to diabetic nephropathy - type 2 diabetes mellitus -Hyperkalemia secondary to lisinopril which is being held -Obesity sleep apnea -History of CVA/TIA in the past for which patient will be continued on aspirin and a statin -DVT prophylaxis Discharge disposition Patient is being discharged in a stable condition with guarded prognosis to home. Patient will follow-up with Dr. Rabago in the outpatient setting upon discharge. Patient is to follow-up with primary care provider along with neurologist outpatient and recommend titrating the dose of Lyrica down and weaning per neurology recommendations. Total time taken is greater than 35 minutes. Hospital course This is a 66-year-old female who was recently admitted with altered mental status and found down. Patient does take a number of narcotic medications including Percocets along with Lyrica came in with some acute renal failure on top of chronic kidney disease recommend discontinuing oxycodone and will continue Lyrica and recommend to wean as tolerated. Patient was seen and evaluated by neurology and CT was showing white matter hypodensities consistent with microvascular ischemia and infarct in the internal capsular area although these lesions appear to be chronic rather than acute and initially neurology recommending MRI which is unnecessary at this time and patient will need follow- up in the outpatient setting with a neurologist along with vascular surgery if patient continues to have these symptoms. Patient has been cleared for discharge and will be discharged home today. Family working on increased care in the home for her. Currently no reports of chest pain, shortness of breath, or palpitations. Patient is afebrile. No reports of nausea or vomiting and patient is tolerating diet. Patient will be discharged home today with extremely guarded prognosis. Physical exam: Gen: This is a 66-year-old female who is awake and lethargic, alert and oriented 3, well-developed, well-nourished, obese HEENT: Head is atraumatic, normocephalic. Pupils equal, round. Sclerae is anicteric. NECK: Supple. No JVD. No lymphadenopathy. No thyromegaly. LUNGS: Clear to auscultation. No wheezes or rhonchi. No intercostal retractions. HEART: Regular rate and rhythm. No murmur. ABDOMEN: Soft. Bowel sounds are present. No masses. No tenderness. EXTREMITIES: No pedal edema. No calf tenderness. NEUROLOGICAL: Patient is awake, alert and oriented x3. Cranial nerves 2 through 12 are grossly intact. Diffusely weak Please refer to medication reconciliation sheet for a list of medications. The impression and plan of care has been dictated by Ruth Theodore, Nurse Practitioner as directed. Dr. Arlette MD I have performed a history and examination and MDM of this patient, discussed the same with the dictator, and agree with the dictator's assessment and plan as written ,documented as a scribe. Based on total visit time, I have performed more than 50% of the visit. Patient Condition at Discharge: Stable Plan - Discharge Summary New Discharge Prescriptions: New Acetaminophen Tab [Tylenol] 650 mg PO Q6HR PRN tab PRN Reason: Fever And/ Or Pain traMADol HCl [Ultram] 50 mg PO QID PRN #12 tab PRN Reason: Pain/Discomfort Continue DULoxetine HCL [Cymbalta] 60 mg PO BID calcitrioL [Calcitriol] 0.5 mcg PO DAILY Topiramate [Topamax] 25 mg PO BID Atorvastatin [Lipitor] 40 mg PO DAILY carvediloL [Coreg*] 12.5 mg PO BID amLODIPine [Norvasc] 10 mg PO DAILY INSULIN ASPART (NovoLOG) [NovoLOG (formulary)] 12 unit SQ TID-W/MEALS Pregabalin [Lyrica] 75 mg PO BID Insulin Glargine,Hum.rec.anlog [Lantus Solostar Pen] 28 unit SQ HS Aspirin EC [Ecotrin Low Dose] 81 mg PO DAILY Nystatin [Nystop] 1 applic TOPICAL BID PRN PRN Reason: Skin Irritation Nystatin 100,000Unit/gm Cream [Mycostatin Cream] 1 applic TOPICAL BID PRN PRN Reason: Skin Irritation Discontinued oxyCODONE-APAP 10-325MG [Percocet 10-325 mg] 1 tab PO Q6H PRN PRN Reason: Pain lisinopriL [Zestril] 2.5 mg PO DAILY Potassium Chloride [Potassium Chloride ER] 10 meq PO DAILY PRN PRN Reason: WITH LASIX Furosemide [Lasix] 20 mg PO BID PRN PRN Reason: Edema Discharge Medication List DULoxetine HCL [Cymbalta] 60 mg PO BID 09/30/13 [History] calcitrioL [Calcitriol] 0.5 mcg PO DAILY 09/30/13 [History] Topiramate [Topamax] 25 mg PO BID 07/06/16 [History] Atorvastatin [Lipitor] 40 mg PO DAILY 01/06/17 [History] carvediloL [Coreg*] 12.5 mg PO BID 04/06/18 [History] INSULIN ASPART (NovoLOG) [NovoLOG (formulary)] 12 unit SQ TID-W/MEALS 09/29/19 [History] Pregabalin [Lyrica] 75 mg PO BID 09/29/19 [History] amLODIPine [Norvasc] 10 mg PO DAILY 09/29/19 [History] Aspirin EC [Ecotrin Low Dose] 81 mg PO DAILY 07/01/21 [History] Insulin Glargine,Hum.rec.anlog [Lantus Solostar Pen] 28 unit SQ HS 07/01/21 [History] Nystatin 100,000Unit/gm Cream [Mycostatin Cream] 1 applic TOPICAL BID PRN 07/01/21 [History] Nystatin [Nystop] 1 applic TOPICAL BID PRN 07/01/21 [History] Acetaminophen Tab [Tylenol] 650 mg PO Q6HR PRN tab 02/25/22 [Rx] traMADol HCl [Ultram] 50 mg PO QID PRN #12 tab 02/25/22 [Rx] Follow up Appointment(s)/Referral(s): Mere Rabago DO [Primary Care Provider] - 1-2 days (PLEASE CALL AND SCHEDULE APPOINTMENT.) Ambulatory/Diagnostic Orders: Basic Metabolic Panel [LAB.AMB] Time Frame: 3 Days, Location: None Selected Patient Instructions/Handouts: Tramadol (By mouth), Encephalopathy (DC) Activity/Diet/Wound Care/Special Instructions: Activity Limited until follow-up Follow-up primary care provider upon discharge Follow-up with neurologist outpatient Continue to hold lisinopril Continue to hold Lasix and follow-up with repeat labs in the next few days to monitor kidney functions Recommend discussing with primary care provider about weaning off Lyrica Continue heart healthy diabetic diet Continue to monitor blood sugars before meals and at bedtime and keep a diary of all readings for primary follow-up Discharge Disposition: HOME WITH HOME HEALTH SERVICES
== END 2022-02-25 16:34 | disposition home health service (06) | DRG 682 ==
LOC: EC 20:17 → 3SCARD 22:46
PROVIDERS: ADMIT Internal Medicine; ATTEND Internal Medicine
DX: N17.9 Acute kidney failure, unspecified (principal); G93.41 Metabolic encephalopathy; E66.2 Morbid (severe) obesity with alveolar hypoventilation; I69.354 Hemiplegia and hemiparesis following cerebral infarction affecting left non-dominant side; T46.4X5A Adverse effect of angiotensin-converting-enzyme inhibitors, initial encounter; T40.2X5A Adverse effect of other opioids, initial encounter; E11.22 Type 2 diabetes mellitus with diabetic chronic kidney disease; Z68.30 Body mass index [BMI] 30.0-30.9, adult; E87.5 Hyperkalemia; Z98.84 Bariatric surgery status; E78.5 Hyperlipidemia, unspecified; F32.A Depression, unspecified; I12.9 Hypertensive chronic kidney disease with stage 1 through stage 4 chronic kidney disease, or unspecified chronic kidney disease; I65.23 Occlusion and stenosis of bilateral carotid arteries; D72.829 Elevated white blood cell count, unspecified; M06.9 Rheumatoid arthritis, unspecified; I87.8 Other specified disorders of veins; Z86.14 Personal history of Methicillin resistant Staphylococcus aureus infection; I89.0 Lymphedema, not elsewhere classified; M47.9 Spondylosis, unspecified; N18.30 Chronic kidney disease, stage 3 unspecified; T50.2X5A Adverse effect of carbonic-anhydrase inhibitors, benzothiadiazides and other diuretics, initial encounter; Z79.4 Long term (current) use of insulin; Z79.82 Long term (current) use of aspirin; Z79.899 Other long term (current) drug therapy; Z82.49 Family history of ischemic heart disease and other diseases of the circulatory system; Z83.3 Family history of diabetes mellitus; Z88.6 Allergy status to analgesic agent
CPT/HCPCS: 36415; 70450; 71045; 72125; 72170; 80048; 80053; 80061; 81001; 82140; 82550; 82803; 83605; 83690; 83735; 83880; 84443; 84484; 85025; 85610; 85730; 93005; 93306; 93880; 94760; 99285

== ENCOUNTER 2023-03-14 13:47 | Inpatient (IN) | payer MEDICARE ==
--- NOTE | 2023-03-14 13:53 | ED ---
General Adult HPI - General Source: patient, RN notes reviewed, old records reviewed <Thomas Smallwood - Last Filed: 03/14/23 14:47> <Balaji Cordova - Last Filed: 03/14/23 16:55> - General Stated complaint: cough Time Seen by Provider: 03/14/23 13:47 - History of Present Illness Initial comments: This is a 67-year-old female presents to the emergency department complaining of weakness. Family called EMS because she was weak normal. Patient is alert and oriented x 3 there is no stroke symptoms. Patient states she has had diarrhea for the last few days. Patient denies any chest pain difficulty breathing shortness of breath. Patient states she has had a cough and a little bit of congestion. Patient states her also has similar upper respiratory symptoms. Patient denies any abdominal pain patient denies any nausea or vomiting but again does have diarrhea. Patient denies any extremity weakness or pain. Patient denies any back pain. Patient [place] any dysuria hematuria urinary frequency. Patient is a diabetic and has had a stroke (Thomas Smallwood) - Related Data Home Medications Medication Instructions Recorded Confirmed DULoxetine HCL [Cymbalta] 60 mg PO BID 09/30/13 02/23/22 calcitrioL 0.5 mcg PO DAILY 09/30/13 02/23/22 Topiramate [Topamax] 25 mg PO BID 07/06/16 02/23/22 Atorvastatin [Lipitor] 40 mg PO DAILY 01/06/17 02/23/22 carvediloL [Coreg*] 12.5 mg PO BID 04/06/18 02/23/22 INSULIN ASPART (NovoLOG) [NovoLOG 12 unit SQ TID-W/MEALS 09/29/19 02/23/22 (formulary)] Pregabalin [Lyrica] 75 mg PO BID 09/29/19 02/23/22 amLODIPine [Norvasc] 10 mg PO DAILY 09/29/19 02/23/22 Aspirin EC [Ecotrin Low Dose] 81 mg PO DAILY 07/01/21 02/23/22 Insulin Glargine,Hum.rec.anlog 28 unit SQ HS 07/01/21 02/23/22 [Lantus Solostar Pen] Nystatin 100,000Unit/gm Cream 1 applic TOPICAL BID PRN 07/01/21 02/23/22 [Mycostatin Cream] Nystatin [Nystop] 1 applic TOPICAL BID PRN 07/01/21 02/23/22 Previous Rx's Medication Instructions Recorded Acetaminophen Tab [Tylenol] 650 mg PO Q6HR PRN tab 02/25/22 traMADol HCl [Ultram] 50 mg PO QID PRN #12 tab 02/25/22 Allergies Allergy/AdvReac Type Severity Reaction Status Date / Time NSAIDS (Non-Steroidal Allergy Unknown Verified 02/23/22 20:28 Anti-Inflamma Review of Systems ROS Other: All systems not noted in ROS Statement are negative. <Thomas Smallwood - Last Filed: 03/14/23 14:47> ROS Other: All systems not noted in ROS Statement are negative. <Balaji Cordova - Last Filed: 03/14/23 16:55> ROS Statement: Those systems with pertinent positive or pertinent negative responses have been documented in the HPI. Past Medical History Past Medical History: CVA/TIA, Diabetes Mellitus, GERD/Reflux, Hyperlipidemia, Hypertension, Renal Disease, Rheumatoid Arthritis (RA), Sleep Apnea/CPAP/BIPAP Additional Past Medical History / Comment(s): CKD stage 3, broken Lt foot 2011- no sx, stroke 2004 affected non dominant lt side . lt side weaker than rt", vertigo, neck pain, mini stroke nov 2016. EARL and she has not used CPAP, RA, HTN, GERD, DM2 , right big toe ulcer. 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 2 adult children. No tobacco or alcohol use. No experience. No international travel. Pet cats at home they are not new. Used to work in a care of handicapped persons Smoking Status: Never smoker Past Alcohol Use History: None Reported Past Drug Use History: None Reported - Past Family History Mother Family Medical History: Diabetes Mellitus Additional Family Medical History / Comment(s): heart attack, Brother of lung cancer 04/19/14 Father Family Medical History: Cancer Additional Family Medical History / Comment(s): lung cancer Brother(s) Family Medical History: Cancer Additional Family Medical History / Comment(s): LUNG <Thomas Smallwood - Last Filed: 03/14/23 14:47> General Exam <Thomas Smallwood - Last Filed: 03/14/23 14:47> - General Exam Comments Initial Comments: GENERAL: Patient is well-developed and well-nourished. Patient is nontoxic and well-hydrated and is in no acute distress. ENT: Neck is soft and supple. No significant lymphadenopathy is noted. Oropharynx is clear. Moist mucous membranes. Neck has full range of motion without eliciting any pain. EYES: The sclera were anicteric and conjunctiva were pink and moist. Extraocular movements were intact and pupils were equal round and reactive to light. Eyelids were unremarkable. PULMONARY: Unlabored respirations. Good breath sounds bilaterally. No audible rales rhonchi or wheezing was noted. CARDIOVASCULAR: There is a regular rate and rhythm without any murmurs gallops or rubs. ABDOMEN: Soft and nontender with normal bowel sounds. SKIN: Skin is clear with no lesions or rashes and otherwise unremarkable. NEUROLOGIC: Patient is alert and oriented x3. Cranial nerves II through XII are grossly intact. Motor and sensory are also intact. Normal speech, volume and content. Symmetrical smile. MUSCULOSKELETAL: Normal extremities with adequate strength and full range of motion. 1+ edema bilaterally LYMPHATICS: No significant lymphadenopathy is noted PSYCHIATRIC: Normal psychiatric evaluation. (Thomas Smallwood) Course <Balaji Cordova - Last Filed: 03/14/23 16:55> Vital Signs 03/14/23 03/14/23 03/14/23 14:07 14:09 15:06 Temperature 98.5 F Pulse Rate 64 60 Respiratory 16 16 20 Rate Blood Pressure 133/56 133/56 O2 Sat by Pulse 96 96 Oximetry - Reevaluation(s) Reevaluation #1: 03/14/23 16:33 Patient is alert and breathing comfortably. Patient reports that her URI symptoms began more than 48 hours ago, and as such Tamiflu was not ordered for the patient. Patient's states that the patient is too weak for him to care for her at home, and that is why they called for an ambulance today. Pat ient and are aware of the patient's test results, and they both agree with hospital admission at this time. Patient denies development of any new symptoms while in the ED. 03/14/23 16:41 Case, H&P, test results and ED management thus far were discussed with EDUCATION CONSULTANT Eva Friend. She accepts hospital admission. She has no further recommendations at this time. (Balaji Cordova) Medical Decision Making <Thomas Smallwood - Last Filed: 03/14/23 14:47> - Lab Data Result diagrams: 03/14/23 13:50 03/14/23 13:50 <Balaji Cordova - Last Filed: 03/14/23 16:55> - Medical Decision Making EKG is interpreted by myself. EKG shows a sinus rhythm at 64 bpm OK interval 160 QRS of 14 QT interval is 437 QTc is 446. Patient's EKG shows no ST segment ovation or depression. Was pt. sent in by a medical professional or institution (, PA, EDUCATION CONSULTANT, urgent care, hospital, or shelter...) When possible be specific @ -[No] Did you speak to anyone other than the patient for history (EMS, parent, family, police, friend...)? What history was obtained from this source @ -EMS gave a substantial portion of the history Did you review nursing and triage notes (agree or disagree)? Why? @ -[I reviewed and agree with nursing and triage notes] Were old charts reviewed (outside hosp., previous admission, EMS record, old EKG, old radiological studies, urgent care reports/EKG's, shelter records)? Report findings @ -I reviewed prior charts and prior lab work on this patient Differential Diagnosis (chest pain, altered mental status, abdominal pain women, abdominal pain men, vaginal bleeding, weakness, fever, dyspnea, syncope, headache, dizziness, GI bleed, back pain, seizure, CVA, palpatations, mental health, musculoskeletal)? @ -Differential Weakness: Hypoglycemia, shock, sepsis, hyponatremia, anemia, infection, [place], ETOH, adverse medicine reaction, overdose, stroke, this is not meant to be an all-inclusive list. EKG interpreted by me (3pts min.). @ -[As above] X-rays interpreted by me (1pt min.). @ -[None done] CT interpreted by me (1pt min.). @ -[None done] U/S interpreted by me (1pt. min.). @ -[None done] What testing was considered but not performed or refused? (CT, X-rays, U/S, labs)? Why? @ -[None] What meds were considered but not given or refused? Why? @ -[None] Did you discuss the management of the patient with other professionals (professionals i.e. , PA, EDUCATION CONSULTANT, lab, RT, psych nurse, social sciences research scientist, distributing clerk, teacher, traffic officer, outpatient case manager)? Give summary @ -[No] Was smoking cessation discussed for >3mins.? @ -[No] Was critical care preformed (if so, how long)? @ -[No] Were there social determinants of health that impacted care today? How? (Homelessness, low income, unemployed, alcoholism, drug addiction, transportation, low edu. Level, literacy, decrease access to med. care, fci, rehab)? @ -[No] Was there de-escalation of care discussed even if they declined (Discuss DNR or withdrawal of care, Hospice)? DNR status @ -[No] What co-morbidities impacted this encounter? (DM, HTN, Smoking, COPD, CAD, Cancer, CVA, ARF, Chemo, Hep., AIDS, mental health diagnosis, sleep apnea, morbid obesity)? @ -[None] Was patient admitted / discharged? Hospital course, mention meds given and route, prescriptions, significant lab abnormalities, going to OR and other pertinent info. @ -Dr. Cordova will take over the care of this patient at 3 PM (Thomas Smallwood) X-rays interpreted by me (1pt min.). @ -Chest x-ray was reviewed myself and shows cardiomegaly and no acute pulmonary process. What meds were considered but not given or refused? Why? @ -Tamiflu was considered, but given that the patient's symptoms began greater than 48 hours ago, it was not given. Did you discuss the management of the patient with other professionals (professionals i.e. , PA, EDUCATION CONSULTANT, lab, RT, psych nurse, social sciences research scientist, distributing clerk, teacher, traffic officer, outpatient case manager)? Give summary @ -As above. Was patient admitted / discharged? Hospital course, mention meds given and route, prescriptions, significant lab abnormalities, going to OR and other pertinent info. @ -Patient was endorsed to me by ED physician Dr. Salinas (secondary to shift change) with the patient's lab results still pending. Patient's labs were reviewed myself and demonstrate findings suggestive of a UTI. Patient also has a positive influenza A test. Patient is afebrile and without leukocytosis. Patient's lactic acid level is within normal limits. Patient does not meet sepsis criteria. Patient has been treated with IV Rocephin in the ED. Patient is mildly hyperglycemic, but not acidotic. Patient has also been treated with IV fluids. Will admit the patient to the hospital for continued care, as patient's reports that the patient is too weak for him to care for her at home. EDUCATION CONSULTANT Eva Friend has accepted hospital admission. Undiagnosed new problem with uncertain prognosis? @ -No Drug Therapy requiring intensive monitoring for toxicity (Heparin, Nitro, Insulin, Cardizem)? @ -No Were any procedures done? @ -No Diagnosis/symptom? @ -Generalized weakness Acute, or Chronic, or Acute on Chronic? @ -Acute Uncomplicated (without systemic symptoms) or Complicated (systemic symptoms)? @ -Default Side effects of treatment? @ -No Exacerbation, Progression, or Severe Exacerbation? @ -No Poses a threat to life or bodily function? How? (Chest pain, [place], [place], pneumonia, PE, COPD, DKA, ARF, appy, cholecystitis, CVA, Diverticulitis, Homicidal, Suicidal, threat to staff... and all critical care pts) @ -No Diagnosis/symptom? @ -UTI Acute, or Chronic, or Acute on Chronic? @ -Default Uncomplicated (without systemic symptoms) or Complicated (systemic symptoms)? @ -Default Side effects of treatment? @ -None Exacerbation, Progression, or Severe Exacerbation] @ -No Poses a threat to life or bodily function? @ -No Diagnosis/symptom? @ -Influenza A Acute, or Chronic, or Acute on Chronic? @ -Acute Uncomplicated (without systemic symptoms) or Complicated (systemic symptoms)? @ -Default Side effects of treatment? @ -None Exacerbation, Progression, or Severe Exacerbation] @ -No Poses a threat to life or bodily function? @ -No Diagnosis/symptom? @ -Acute on chronic renal insufficiency Acute, or Chronic, or Acute on Chronic? @ -Acute on chronic Uncomplicated (without systemic symptoms) or Complicated (systemic symptoms)? @ -Default Side effects of treatment? @ -None Exacerbation, Progression, or Severe Exacerbation] @ -No Poses a threat to life or bodily function? @ -No (Balaji Cordova) - Lab Data Lab Results 03/14/23 03/14/23 03/14/23 Range/Units 13:50 13:50 13:50 WBC 6.6 (3.8-10.6) k/uL RBC 4.35 (3.80-5.40) m/uL Hgb 13.1 (11.4-16.0) gm/dL Hct 41.9 (34.0-46.0) % MCV 96.4 (80.0-100.0) fL MCH 30.1 (25.0-35.0) pg MCHC 31.3 (31.0-37.0) g/dL RDW 14.4 (11.5-15.5) % Plt Count 171 (150-450) k/uL MPV 8.6 Neutrophils % 84 % Lymphocytes % 8 % Monocytes % 6 % Eosinophils % 0 % Basophils % 0 % Neutrophils # 5.6 (1.3-7.7) k/uL Lymphocytes # 0.5 L (1.0-4.8) k/uL Monocytes # 0.4 (0-1.0) k/uL Eosinophils # 0.0 (0-0.7) k/uL Basophils # 0.0 (0-0.2) k/uL Hypochromasia Slight PT 10.7 (10.0-12.5) sec INR 1.0 (<1.2) APTT 33.0 H (22.0-30.0) sec Sodium (137-145) mmol/L Potassium (3.5-5.1) mmol/L Chloride (98-107) mmol/L Carbon Dioxide (22-30) mmol/L Anion Gap mmol/L BUN (7-17) mg/dL Creatinine (0.52-1.04) mg/dL Est GFR (CKD-EPI)AfAm (>60 ml/min/1.73 sqM) Est GFR (CKD-EPI)NonAf (>60 ml/min/1.73 sqM) Glucose (74-99) mg/dL Plasma Lactic Acid Flex (0.7-2.0) mmol/L Calcium (8.4-10.2) mg/dL Magnesium (1.6-2.3) mg/dL Total Bilirubin (0.2-1.3) mg/dL AST (14-36) U/L ALT (4-34) U/L Alkaline Phosphatase (38-126) U/L Troponin I (0.000-0.034) ng/mL Total Protein (6.3-8.2) g/dL Albumin (3.5-5.0) g/dL Urine Color Yellow Urine Appearance Turbid H (Clear) Urine pH 5.5 (5.0-8.0) Ur Specific [place] 1.018 (1.001-1.035) Urine Protein 1+ H (Negative) Urine Glucose (UA) Negative (Negative) Urine Ketones Negative (Negative) Urine Blood Moderate H (Negative) Urine Nitrite Positive H (Negative) Urine Bilirubin Negative (Negative) Urine Urobilinogen <2.0 (<2.0) mg/dL Ur Leukocyte Esterase Large H (Negative) Urine RBC 88 H (0-5) /hpf Urine WBC >182 H (0-5) /hpf Urine WBC Clumps Many H (None) /hpf Ur Squamous Epith Cells 7 H (0-4) /hpf Urine Bacteria Moderate H (None) /hpf Urine Mucus Rare H (None) /hpf Influenza Type A (PCR) (Not Detectd) Influenza Type B (PCR) (Not Detectd) RSV (PCR) (Not Detectd) SARS-CoV-2 (PCR) (Not Detectd) 03/14/23 03/14/23 03/14/23 Range/Units 13:50 13:50 13:50 WBC (3.8-10.6) k/uL RBC (3.80-5.40) m/uL Hgb (11.4-16.0) gm/dL Hct (34.0-46.0) % MCV (80.0-100.0) fL MCH (25.0-35.0) pg MCHC (31.0-37.0) g/dL RDW (11.5-15.5) % Plt Count (150-450) k/uL MPV Neutrophils % % Lymphocytes % % Monocytes % % Eosinophils % % Basophils % % Neutrophils # (1.3-7.7) k/uL Lymphocytes # (1.0-4.8) k/uL Monocytes # (0-1.0) k/uL Eosinophils # (0-0.7) k/uL Basophils # (0-0.2) k/uL Hypochromasia PT (10.0-12.5) sec INR (<1.2) APTT (22.0-30.0) sec Sodium 136 L (137-145) mmol/L Potassium 5.3 H (3.5-5.1) mmol/L Chloride 103 (98-107) mmol/L Carbon Dioxide 25 (22-30) mmol/L Anion Gap 8 mmol/L BUN 33 H (7-17) mg/dL Creatinine 2.22 H (0.52-1.04) mg/dL Est GFR (CKD-EPI)AfAm 26 (>60 ml/min/1.73 sqM) Est GFR (CKD-EPI)NonAf 22 (>60 ml/min/1.73 sqM) Glucose 297 H (74-99) mg/dL Plasma Lactic Acid Flex 1.4 (0.7-2.0) mmol/L Calcium 8.9 (8.4-10.2) mg/dL Magnesium 1.9 (1.6-2.3) mg/dL Total Bilirubin 0.5 (0.2-1.3) mg/dL AST 52 H (14-36) U/L ALT 23 (4-34) U/L Alkaline Phosphatase 124 (38-126) U/L Troponin I 0.019 (0.000-0.034) ng/mL Total Protein 7.2 (6.3-8.2) g/dL Albumin 3.8 (3.5-5.0) g/dL Urine Color Urine Appearance (Clear) Urine pH (5.0-8.0) Ur Specific [place] (1.001-1.035) Urine Protein (Negative) Urine Glucose (UA) (Negative) Urine Ketones (Negative) Urine Blood (Negative) Urine Nitrite (Negative) Urine Bilirubin (Negative) Urine Urobilinogen (<2.0) mg/dL Ur Leukocyte Esterase (Negative) Urine RBC (0-5) /hpf Urine WBC (0-5) /hpf Urine WBC Clumps (None) /hpf Ur Squamous Epith Cells (0-4) /hpf Urine Bacteria (None) /hpf Urine Mucus (None) /hpf Influenza Type A (PCR) (Not Detectd) Influenza Type B (PCR) (Not Detectd) RSV (PCR) (Not Detectd) SARS-CoV-2 (PCR) (Not Detectd) 03/14/23 Range/Units 13:50 WBC (3.8-10.6) k/uL RBC (3.80-5.40) m/uL Hgb (11.4-16.0) gm/dL Hct (34.0-46.0) % MCV (80.0-100.0) fL MCH (25.0-35.0) pg MCHC (31.0-37.0) g/dL RDW (11.5-15.5) % Plt Count (150-450) k/uL MPV Neutrophils % % Lymphocytes % % Monocytes % % Eosinophils % % Basophils % % Neutrophils # (1.3-7.7) k/uL Lymphocytes # (1.0-4.8) k/uL Monocytes # (0-1.0) k/uL Eosinophils # (0-0.7) k/uL Basophils # (0-0.2) k/uL Hypochromasia PT (10.0-12.5) sec INR (<1.2) APTT (22.0-30.0) sec Sodium (137-145) mmol/L Potassium (3.5-5.1) mmol/L Chloride (98-107) mmol/L Carbon Dioxide (22-30) mmol/L Anion Gap mmol/L BUN (7-17) mg/dL Creatinine (0.52-1.04) mg/dL Est GFR (CKD-EPI)AfAm (>60 ml/min/1.73 sqM) Est GFR (CKD-EPI)NonAf (>60 ml/min/1.73 sqM) Glucose (74-99) mg/dL Plasma Lactic Acid Flex (0.7-2.0) mmol/L Calcium (8.4-10.2) mg/dL Magnesium (1.6-2.3) mg/dL Total Bilirubin (0.2-1.3) mg/dL AST (14-36) U/L ALT (4-34) U/L Alkaline Phosphatase (38-126) U/L Troponin I (0.000-0.034) ng/mL Total Protein (6.3-8.2) g/dL Albumin (3.5-5.0) g/dL Urine Color Urine Appearance (Clear) Urine pH (5.0-8.0) Ur Specific [place] (1.001-1.035) Urine Protein (Negative) Urine Glucose (UA) (Negative) Urine Ketones (Negative) Urine Blood (Negative) Urine Nitrite (Negative) Urine Bilirubin (Negative) Urine Urobilinogen (<2.0) mg/dL Ur Leukocyte Esterase (Negative) Urine RBC (0-5) /hpf Urine WBC (0-5) /hpf Urine WBC Clumps (None) /hpf Ur Squamous Epith Cells (0-4) /hpf Urine Bacteria (None) /hpf Urine Mucus (None) /hpf Influenza Type A (PCR) Detected A (Not Detectd) Influenza Type B (PCR) Not Detected (Not Detectd) RSV (PCR) Not Detected (Not Detectd) SARS-CoV-2 (PCR) Not Detected (Not Detectd) - Radiology Data Chest x-ray (interpreted by me): Cardiomegaly, no acute pulmonary process. (Balaji Cordova) Disposition <Thomas Smallwood - Last Filed: 03/14/23 14:47> Is patient prescribed a controlled substance at d/c from ED?: No Time of Disposition: 16:41 <Balaji Cordova - Last Filed: 03/14/23 16:55> Clinical Impression: Generalized weakness, UTI (urinary tract infection), Hyperglycemia, Influenza A, Acute on chronic renal insufficiency Disposition: ADMITTED IP TO THIS HOSP Condition: Stable Referrals: Mere Rodriguez DO [Primary Care Provider] - 1-2 days
[2023-03-14 15:04] LABS: Basophils % (A) 0 %; Eosinophils % (A) 0 %; HCT 41.9 % (34.0-46.0); HGB 13.1 gm/dL (11.4-16.0); Hypochromasia Slight; Lymphocytes # (A) 0.5 k/uL (1.0-4.8); Lymphocytes % (A) 8 %; MCH 30.1 pg (25.0-35.0); MCHC 31.3 g/dL (31.0-37.0); MCV 96.4 fL (80.0-100.0); Mean Platelet Volume 8.6; Monocytes # (A) 0.4 k/uL (0-1.0); Monocytes % (A) 6 %; Neutrophils # (A) 5.6 k/uL (1.3-7.7); Neutrophils % (A) 84 %; Platelet Count 171 k/uL (150-450); RBC 4.35 m/uL (3.80-5.40); RDW 14.4 % (11.5-15.5); WBC 6.6 k/uL (3.8-10.6)
[2023-03-14 15:18] LABS: Appearance,Urine Turbid (Clear); Bacteria,Urine Moderate /hpf; Bilirubin,Urine Negative (Negative); Blood,Urine Moderate (Negative); Color,Urine Yellow; Glucose,Urine (UA) Negative (Negative); Ketones,Urine Negative (Negative); Leukocyte Esterase,Urine Large (Negative); Mucus,Urine Rare /hpf; Nitrite,Urine Positive (Negative); PH, Urine 5.5 (5.0-8.0); Protein,Urine 1+ (Negative); RBC,Urine 88 /hpf (0-5); Specific Gravity,Urine 1.018 (1.001-1.035); Squamous Epithelial Cell,Urine 7 /hpf (0-4); Urobilinogen,Urine <2.0 mg/dL (<2.0); WBC,Urine >182 /hpf (0-5)
[2023-03-14 15:22] LABS: Prothrombin Time 10.7 sec (10.0-12.5)
[2023-03-14 15:47] LABS: ALT 23 U/L (4-34); AST 52 U/L (14-36); African American GFR (CKD) 26 (>60 ml/min/1.73 sqM); Albumin 3.8 g/dL (3.5-5.0); Alkaline Phosphatase 124 U/L (38-126); Anion Gap 8 mmol/L; Blood Urea Nitrogen 33 mg/dL (7-17); Calcium 8.9 mg/dL (8.4-10.2); Carbon Dioxide 25 mmol/L (22-30); Chloride 103 mmol/L (98-107); Glucose 297 mg/dL (74-99); Magnesium 1.9 mg/dL (1.6-2.3); Non-African American GFR(CKD) 22 (>60 ml/min/1.73 sqM); Potassium 5.3 mmol/L (3.5-5.1); Sodium 136 mmol/L (137-145); Total Bilirubin 0.5 mg/dL (0.2-1.3); Total Protein 7.2 g/dL (6.3-8.2)
[2023-03-14] MEDS: SODIUM CHLORIDE 0.9% 500 ML 500 ML IV STA (16:00)
[2023-03-14] MEDS ORDERED: NALOXONE 0.4 MG/ML 1 ML VIAL IV PRN (16:43)
--- NOTE | 2023-03-14 16:52 | XR ---
EXAMINATION TYPE: XR chest 2V DATE OF EXAM: 03/14/2023 COMPARISON: 06/30/2021 HISTORY: Weakness TECHNIQUE: Frontal and lateral views of the chest are obtained. FINDINGS: There is no focal air space opacity, pleural effusion, or pneumothorax seen. The cardiac silhouette size is within normal limits. The osseous structures are intact. IMPRESSION: No acute cardiopulmonary process.
[2023-03-14] MEDS: MORPHINE SULFATE 4 MG/ML SYRINGE IVP STA (17:13)
[2023-03-14] MEDS ORDERED: DEXTROSE 50% SYRINGE 50 ML IVP PRN ×2 (19:55)
[2023-03-14 20:44] LABS: Glucose,Whole Blood 225 mg/dL (70-110)
[2023-03-14] MEDS: carvediloL 12.5 MG TAB PO SCH (22:01)
[2023-03-14] MEDS: INSULIN DETEMIR (LEVEMIR) 100 UNIT/ML SYR SQ SCH (22:01)
[2023-03-14] MEDS: SODIUM ZIRCONIUM CYCLOSILICATE 10 GM PACKET PO ONE (22:01)
[2023-03-14] MEDS: INSULIN ASPART (NovoLOG) 100 UNIT/ML VIAL SQ SCH (22:02)
[2023-03-14] MEDS: DULoxetine HCL 60 MG CAPSULE.DR PO SCH (22:03)
[2023-03-14] MEDS: PREGABALIN 75 MG CAP PO SCH (22:03)
[2023-03-14] MEDS: TOPIRAMATE 25 MG TAB PO SCH (22:03)
[2023-03-14] MEDS: SODIUM CHLORIDE 0.9% 1,000 ML IV SCH (22:05)
[2023-03-14] MEDS: HYDROcodone/APAP 5-325MG 1 EACH TAB PO PRN (22:13)
[2023-03-15] MEDS: HEPARIN SODIUM,PORCINE 5,000 UNIT/ML 1 ML VIAL SQ SCH (00:33)
[2023-03-15 06:24] LABS: Glucose,Whole Blood 119 mg/dL (70-110)
[2023-03-15] MEDS: NYSTATIN 100,000UNIT/GM CREAM 30 GM TUBE TOPICAL PRN (06:26)
[2023-03-15] MEDS: ZINC OXIDE PASTE (Z-GUARD) 1 APPLIC TOPICAL PRN (06:27)
[2023-03-15 08:09] LABS: Basophils % (A) 0 %; Eosinophils % (A) 1 %; HCT 35.3 % (34.0-46.0); HGB 11.2 gm/dL (11.4-16.0); Hypochromasia Slight; Lymphocytes # (A) 0.8 k/uL (1.0-4.8); Lymphocytes % (A) 16 %; MCH 30.5 pg (25.0-35.0); MCHC 31.6 g/dL (31.0-37.0); MCV 96.3 fL (80.0-100.0); Mean Platelet Volume 8.5; Monocytes # (A) 0.5 k/uL (0-1.0); Monocytes % (A) 10 %; Neutrophils # (A) 3.3 k/uL (1.3-7.7); Neutrophils % (A) 70 %; Platelet Count 146 k/uL (150-450); RBC 3.66 m/uL (3.80-5.40); RDW 14.7 % (11.5-15.5); WBC 4.7 k/uL (3.8-10.6)
[2023-03-15] MEDS: ASPIRIN 81 MG PO SCH (09:59)
[2023-03-15] MEDS: ATORVASTATIN 40 MG TAB PO SCH (09:59)
[2023-03-15 11:08] LABS: ALT 20 U/L (4-34); AST 47 U/L (14-36); African American GFR (CKD) 26 (>60 ml/min/1.73 sqM); Albumin 2.9 g/dL (3.5-5.0); Alkaline Phosphatase 92 U/L (38-126); Anion Gap 7 mmol/L; Blood Urea Nitrogen 35 mg/dL (7-17); C Reactive Protein 3.4 mg/dL (<1.0); Carbon Dioxide 24 mmol/L (22-30); Chloride 106 mmol/L (98-107); Glucose 113 mg/dL (74-99); Non-African American GFR(CKD) 22 (>60 ml/min/1.73 sqM); Potassium 3.7 mmol/L (3.5-5.1); Sodium 137 mmol/L (137-145); Total Bilirubin 0.3 mg/dL (0.2-1.3); Total Protein 5.9 g/dL (6.3-8.2)
[2023-03-15 11:50] LABS: Glucose,Whole Blood 198 mg/dL (70-110)
[2023-03-15] MEDS: INSULIN ASPART (NovoLOG) 100 UNIT/ML VIAL SQ SCH (12:44)
[2023-03-15] MEDS: OSELTAMIVIR 60 MG/10 ML ORAL SYRINGE PO SCH (14:22)
[2023-03-15 16:50] LABS: Glucose,Whole Blood 150 mg/dL (70-110)
--- NOTE | 2023-03-15 17:36 | P.HPIM ---
History of Present Illness H&P Date: 03/15/23 Chief Complaint: Weakness 67-year-old female presents to the emergency department complaining of weakness. Family called EMS because she was weak normal. Patient is alert and oriented x 3 there is no stroke symptoms. Patient states she has had diarrhea for the last few days. Patient denies any chest pain difficulty breathing shortness of breath. Patient states she has had a cough and a little bit of congestion. Patient states her also has similar upper respiratory symptoms. Patient denies any abdominal pain patient denies any nausea or vomiting but again does have diarrhea. Patient denies any extremity weakness or pain. Patient denies any back pain. Patient Nuys any dysuria hematuria urinary frequency. Patient is a diabetic and has had a stroke Blood work completed in ED reveals a WBC of 6.6, hemoglobin 13.1 and platelet count of 171, sodium 136, potassium 5.3, BUN of 33, creatinine of 2.2 and blood glucose of 297 EKG shows normal sinus rhythm with no acute ST or T wave changes Review of Systems REVIEW OF SYSTEMS: CONSTITUTIONAL: No fever, no malaise, no fatigue. HEENT: No recent visual problems or hearing problems. Denied any sore throat. CARDIOVASCULAR: No chest pain, orthopnea, PND, no palpitations, no syncope. PULMONARY: No shortness of breath, no cough, no hemoptysis. GASTROINTESTINAL: No diarrhea, no nausea, no vomiting, no abdominal pain. NEUROLOGICAL: No headaches, no weakness, no numbness. HEMATOLOGICAL: Denies any bleeding or petechiae. GENITOURINARY: Denies any burning micturition, frequency, or urgency. MUSCULOSKELETAL/RHEUMATOLOGICAL: Denies any joint pain, swelling, or any muscle pain. ENDOCRINE: Denies any polyuria or polydipsia. The rest of the 14-point review of systems is negative. Past Medical History Past Medical History: CVA/TIA, Diabetes Mellitus, GERD/Reflux, Hyperlipidemia, Hypertension, Renal Disease, Rheumatoid Arthritis (RA), Sleep Apnea/CPAP/BIPAP Additional Past Medical History / Comment(s): CKD stage 3, broken Lt foot 2011- no sx, stroke 2004 affected non dominant lt side . lt side weaker than rt", vertigo, neck pain, mini stroke nov 2016. EARL and she has not used CPAP, RA, HTN, GERD, DM2 , right big toe ulcer. 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 2 adult children. No tobacco or alcohol use. No experience. No international travel. Pet cats at home they are not new. Used to work in a care of handicapped persons Smoking Status: Never smoker Past Alcohol Use History: None Reported Past Drug Use History: None Reported - Past Family History Mother Family Medical History: Diabetes Mellitus Additional Family Medical History / Comment(s): heart attack, Brother of lung cancer 04/19/14 Father Family Medical History: Cancer Additional Family Medical History / Comment(s): lung cancer Brother(s) Family Medical History: Cancer Additional Family Medical History / Comment(s): LUNG Medications and Allergies Home Medications Medication Instructions Recorded Confirmed Type DULoxetine HCL [Cymbalta] 60 mg PO BID 09/30/13 03/14/23 History calcitrioL 0.5 mcg PO DAILY 09/30/13 03/14/23 History Topiramate [Topamax] 25 mg PO BID 07/06/16 03/14/23 History Atorvastatin [Lipitor] 40 mg PO DAILY 01/06/17 03/14/23 History carvediloL [Coreg*] 12.5 mg PO BID 04/06/18 03/14/23 History INSULIN ASPART (NovoLOG) [NovoLOG 12 unit SQ TID-W/MEALS 09/29/19 03/14/23 History (formulary)] Pregabalin [Lyrica] 75 mg PO BID 09/29/19 03/14/23 History amLODIPine [Norvasc] 10 mg PO DAILY 09/29/19 03/14/23 History Aspirin EC [Ecotrin Low Dose] 81 mg PO DAILY 07/01/21 03/14/23 History Insulin Glargine,Hum.rec.anlog 28 unit SQ HS 07/01/21 03/14/23 History [Lantus Solostar Pen] Nystatin 100,000Unit/gm Cream 1 applic TOPICAL BID PRN 07/01/21 03/14/23 History [Mycostatin Cream] Nystatin [Nystop] 1 applic TOPICAL BID PRN 07/01/21 03/14/23 History Acetaminophen Tab [Tylenol] 650 mg PO Q6HR PRN tab 02/25/22 03/14/23 Rx HYDROcodone/APAP 5-325MG [[place] 1 tab PO TID 03/14/23 03/14/23 History 5-325] Silver Sulfadiazine [Silver 1 applic TOPICAL BID PRN 03/14/23 03/14/23 History Sulfadiazine 1%] Allergies Allergy/AdvReac Type Severity Reaction Status Date / Time NSAIDS (Non-Steroidal Allergy Unknown Verified 03/14/23 17:22 Anti-Inflamma Physical Exam Vitals: Vital Signs Temp Pulse Pulse Resp BP BP Pulse Ox 03/15/23 08:01 96 03/15/23 07:23 98.0 F 60 20 128/73 97 03/15/23 01:08 99.1 F 58 L 15 105/64 96 03/14/23 22:10 99.3 F 72 18 145/75 03/14/23 19:32 64 19 178/80 03/14/23 18:00 66 16 165/79 96 03/14/23 16:09 75 20 140/85 96 03/14/23 15:06 20 03/14/23 14:09 60 16 133/56 96 03/14/23 14:07 98.5 F 64 16 133/56 96 Intake and Output 03/14/23 03/15/23 03/15/23 22:59 06:59 14:59 Output Total 150 Balance -150 Output: Urine 150 Uretheral (Montgomery) 150 Other: Voiding Method Indwelling Catheter # Voids 2 # Bowel Movements 2 Weight 136.078 kg GENERAL: Patient is well-developed and well-nourished. Patient is nontoxic and well-h ydrated and is in no acute distress. ENT: Neck is soft and supple. No significant lymphadenopathy is noted. Oropharynx is clear. Moist mucous membranes. Neck has full range of motion without elic iting any pain. EYES: The sclera were anicteric and conjunctiva were pink and moist. Extraocular movements were intact and pupils were equal round and reactive to light. Eyelids were unremarkable. PULMONARY: Unlabored respirations. Good breath sounds bilaterally. No audible rales rhonchi or wheezing was noted. CARDIOVASCULAR: There is a regular rate and rhythm without any murmurs gallops or rubs. ABDOMEN: Soft and nontender with normal bowel sounds. SKIN: Skin is clear with no lesions or rashes and otherwise unremarkable. NEUROLOGIC: Patient is alert and oriented x3. Cranial nerves II through XII are grossly intact. Motor and sensory are also intact. Normal speech, volume and content. Symmetrical smile. MUSCULOSKELETAL: Normal extremities with adequate strength and full range of motion. 1+ edema bilaterally LYMPHATICS: No significant lymphadenopathy is noted PSYCHIATRIC: Normal psychiatric evaluation. Results CBC & Chem 7: 03/15/23 07:06 03/15/23 07:06 Labs: Abnormal Lab Results - Last 24 Hours (Table) 03/14/23 03/14/23 03/14/23 Range/Units 13:50 13:50 13:50 RBC (3.80-5.40) m/uL Hgb (11.4-16.0) gm/dL Plt Count (150-450) k/uL Lymphocytes # 0.5 L (1.0-4.8) k/uL APTT 33.0 H (22.0-30.0) sec Sodium (137-145) mmol/L Potassium (3.5-5.1) mmol/L BUN (7-17) mg/dL Creatinine (0.52-1.04) mg/dL Glucose (74-99) mg/dL POC Glucose (mg/dL) (70-110) mg/dL Calcium (8.4-10.2) mg/dL AST (14-36) U/L C-Reactive Protein (<1.0) mg/dL Total Protein (6.3-8.2) g/dL Albumin (3.5-5.0) g/dL Urine Appearance Turbid H (Clear) Urine Protein 1+ H (Negative) Urine Blood Moderate H (Negative) Urine Nitrite Positive H (Negative) Ur Leukocyte Esterase Large H (Negative) Urine RBC 88 H (0-5) /hpf Urine WBC >182 H (0-5) /hpf Urine WBC Clumps Many H (None) /hpf Ur Squamous Epith Cells 7 H (0-4) /hpf Urine Bacteria Moderate H (None) /hpf Urine Mucus Rare H (None) /hpf Influenza Type A (PCR) (Not Detectd) 03/14/23 03/14/23 03/14/23 Range/Units 13:50 13:50 20:41 RBC (3.80-5.40) m/uL Hgb (11.4-16.0) gm/dL Plt Count (150-450) k/uL Lymphocytes # (1.0-4.8) k/uL APTT (22.0-30.0) sec Sodium 136 L (137-145) mmol/L Potassium 5.3 H (3.5-5.1) mmol/L BUN 33 H (7-17) mg/dL Creatinine 2.22 H (0.52-1.04) mg/dL Glucose 297 H (74-99) mg/dL POC Glucose (mg/dL) 225 H (70-110) mg/dL Calcium (8.4-10.2) mg/dL AST 52 H (14-36) U/L C-Reactive Protein (<1.0) mg/dL Total Protein (6.3-8.2) g/dL Albumin (3.5-5.0) g/dL Urine Appearance (Clear) Urine Protein (Negative) Urine Blood (Negative) Urine Nitrite (Negative) Ur Leukocyte Esterase (Negative) Urine RBC (0-5) /hpf Urine WBC (0-5) /hpf Urine WBC Clumps (None) /hpf Ur Squamous Epith Cells (0-4) /hpf Urine Bacteria (None) /hpf Urine Mucus (None) /hpf Influenza Type A (PCR) Detected A (Not Detectd) 03/15/23 03/15/23 03/15/23 Range/Units 06:16 07:06 07:06 RBC 3.66 L (3.80-5.40) m/uL Hgb 11.2 L (11.4-16.0) gm/dL Plt Count 146 L (150-450) k/uL Lymphocytes # 0.8 L (1.0-4.8) k/uL APTT (22.0-30.0) sec Sodium (137-145) mmol/L Potassium (3.5-5.1) mmol/L BUN 35 H (7-17) mg/dL Creatinine 2.21 H (0.52-1.04) mg/dL Glucose 113 H (74-99) mg/dL POC Glucose (mg/dL) 119 H (70-110) mg/dL Calcium 8.0 L (8.4-10.2) mg/dL AST 47 H (14-36) U/L C-Reactive Protein 3.4 H (<1.0) mg/dL Total Protein 5.9 L (6.3-8.2) g/dL Albumin 2.9 L (3.5-5.0) g/dL Urine Appearance (Clear) Urine Protein (Negative) Urine Blood (Negative) Urine Nitrite (Negative) Ur Leukocyte Esterase (Negative) Urine RBC (0-5) /hpf Urine WBC (0-5) /hpf Urine WBC Clumps (None) /hpf Ur Squamous Epith Cells (0-4) /hpf Urine Bacteria (None) /hpf Urine Mucus (None) /hpf Influenza Type A (PCR) (Not Detectd) Microbiology - Last 24 Hours (Table) 03/14/23 14:45 Blood Culture Gram Stain - Preliminary Blood Thrombosis Risk Factor Assmnt - Choose All That Apply Each Factor Represents 1 point: Obesity (BMI >25), Swollen legs (current) Each Risk Factor Represents 2 Points: Age 61-74 years Thrombosis Risk Factor Assessment Total Risk Factor Score: 4 Thrombosis Risk Factor Assessment Level: Moderate Risk Assessment and Plan Assessment: 1. Acute influenza A infection -Patient is placed on Tamiflu 75 mg twice daily; continue with symptomatic treatment 2. UTI; Rocephin 1 g IV daily; tailor antibiotic therapy pending culture results 3. Acute on chronic kidney disease; IV fluid hydration with normal saline at rate of 75 cc an hour, monitor strict OSCAR's, daily weights, renal function electrolytes, avoid nephrotoxins and hypotension 4. Hyperglycemia without acidosis/diabetes mellitus; we will continue home dose of Lantus 28 units subcu nightly; monitor Accu-Cheks before every meal and at bedtime with insulin sliding scale 5. Hyperlipidemia; Lipitor 40 mg p.o. nightly 6. Hypertension; Coreg 12.5 mg twice daily; amlodipine 10 mg daily 7. History of CVA/TIA; without any deficit; patient remains on aspirin and statin therapy 8. History of sleep apnea DVT prophylaxis; heparin CODE STATUS; full code
[2023-03-15 20:11] LABS: Glucose,Whole Blood 208 mg/dL (70-110)
[2023-03-15] MEDS: ALBUTEROL NEBULIZED 2.5 MG/3 ML INHALATION PRN (20:55)
[2023-03-16 05:55] LABS: Glucose,Whole Blood 181 mg/dL (70-110)
[2023-03-16] MEDS: amLODIPine 10 MG TAB PO SCH (08:28)
[2023-03-16 08:46] LABS: Basophils # (A) 0.01 X 10*3/uL (0.00-0.10); Basophils % (A) 0.2 %; Eosinophils # (A) 0.01 X 10*3/uL (0.04-0.35); Eosinophils % (A) 0.2 %; HCT 34.5 % (37.2-46.3); HGB 10.7 g/dL (12.0-15.0); Lymphocytes % (A) 17.4 %; MCH 29.7 pg (27.0-32.0); MCV 95.8 FL (80.0-97.0); Mean Platelet Volume 11.7 FL (9.5-12.2); Monocytes # (A) 0.45 X 10*3/uL (0.20-1.00); Monocytes % (A) 11.2 %; NRBC Per 100 WBC 0 X 10*3/uL (0.00-0.01); Neutrophils # (A) 2.83 X 10*3/uL (1.80-7.70); Neutrophils % (A) 70.5 %; Platelet Count 141 X 10*3/uL (140-440); RDW 14.6 % (11.5-14.5); WBC 4.02 X 10*3/uL (4.50-10.00)
[2023-03-16 09:03] LABS: BUN/Creat Ratio 16.37 Ratio (12.00-20.00); Blood Urea Nitrogen 31.1 mg/dL (9.0-27.0); Calcium 8.2 mg/dL (8.7-10.3); Carbon Dioxide 22.4 mmol/L (21.6-31.8); Chloride 106 mmol/L (96-109); Glucose 210 mg/dL (70-110); Potassium 3.9 mmol/L (3.5-5.5); Sodium 140 mmol/L (135-145)
[2023-03-16 11:44] LABS: Glucose,Whole Blood 83 mg/dL (70-110)
[2023-03-16] MEDS: guaiFENesin-DM 100-10MG/5ML 10 ML CUP PO SCH (12:23)
[2023-03-16 16:32] VITALS: BMI 44.3
[2023-03-16 16:59] LABS: Glucose,Whole Blood 44 mg/dL (70-110)
[2023-03-16 17:23] LABS: Glucose,Whole Blood 81 mg/dL (70-110)
[2023-03-16] MEDS: INSULIN ASPART (NovoLOG) 100 UNIT/ML VIAL SQ SCH (18:57)
[2023-03-16 20:53] LABS: Glucose,Whole Blood 146 mg/dL (70-110)
--- NOTE | 2023-03-16 23:16 | P.PN ---
Subjective 67-year-old female presents to the emergency department complaining of weakness. Family called EMS because she was weak normal. Patient is alert and oriented x 3 there is no stroke symptoms. Patient states she has had diarrhea for the last few days. Patient denies any chest pain difficulty breathing shortness of breath. Patient states she has had a cough and a little bit of congestion. Patient states her also has similar upper respiratory symptoms. Patient denies any abdominal pain patient denies any nausea or vomiting but again does have diarrhea. Patient denies any extremity weakness or pain. Patient denies any back pain. Patient Nuys any dysuria hematuria urinary frequency. Patient is a diabetic and has had a stroke Blood work completed in ED reveals a WBC of 6.6, hemoglobin 13.1 and platelet count of 171, sodium 136, potassium 5.3, BUN of 33, creatinine of 2.2 and blood glucose of 297 EKG shows normal sinus rhythm with no acute ST or T wave changes 03/16/2023 Patient with no significant dyspnea or tachypnea at rest She has a lot of, coughing, Robitussin is added Patient was not on oxygen at home No chest pain No previous vaccination against influenza Her urine was dark and smelly but no signs and symptoms of UTI but no dysuria or urgency or change in frequency Creatinine came down to 1.9 which is close to baseline. Patient eating and drinking. IV fluids discontinued She remains on Tamiflu and ceftriaxone Review of systems CONSTITUTIONAL: No fever, no malaise, no fatigue. HEENT: No recent visual problems or hearing problems. Denied any sore throat. CARDIOVASCULAR: No orthopnea, PND, no palpitations, no syncope. NEUROLOGICAL: No headaches, no weakness, no numbness. HEMATOLOGICAL: Denies any bleeding or petechiae. Active Medications Generic Name Dose Route Start Last Admin Trade Name Freq PRN Reason Stop Dose Admin Acetaminophen 650 mg 03/14/23 19:54 Acetaminophen Tab 325 Mg Tab PO Q6HR PRN Fever and/ or Pain Hydrocodone Bitart/Acetaminophen 1 each 03/14/23 22:00 03/16/23 22:21 Hydrocodone/Apap 5-325mg 1 Each Tab PO 1 each TID PRN Administration Pain Albuterol Sulfate 2.5 mg 03/15/23 19:44 03/15/23 20:55 Albuterol Nebulized 2.5 Mg/3 Ml INHALATION 2.5 mg RT-QID PRN Administration Shortness Of Breath Or Wheezing Amlodipine Besylate 10 mg 03/16/23 09:00 03/16/23 08:28 Amlodipine 10 Mg Tab PO 10 mg DAILY EMILIANO Administration Aspirin 81 mg 03/15/23 09:00 03/16/23 08:31 Aspirin 81 Mg PO 81 mg DAILY EMILIANO Administration Atorvastatin Calcium 40 mg 03/15/23 09:00 03/16/23 08:28 Atorvastatin 40 Mg Tab PO 40 mg DAILY EMILIANO Administration Calcitriol 0.5 mcg 03/15/23 09:00 03/16/23 08:31 Calcitriol 0.25 Mcg Cap PO 0.5 mcg DAILY EMILIANO Administration Carvedilol 12.5 mg 03/14/23 21:00 03/16/23 17:18 Carvedilol 12.5 Mg Tab PO Not Given BID-W/MEALS EMILIANO Dextrose/Water 25 ml 03/14/23 19:55 Dextrose 50% Syringe 50 Ml IVP PER PROTOCOL PRN Hypoglycemia Protocol Dextrose/Water 50 ml 03/14/23 19:55 Dextrose 50% Syringe 50 Ml IVP PER PROTOCOL PRN Hypoglycemia Protocol Duloxetine HCl 60 mg 03/14/23 21:00 03/16/23 22:21 Duloxetine Hcl 60 Mg Capsule.Dr PO 60 mg BID EMILIANO Administration Guaifenesin/Dextromethorphan 10 ml 03/16/23 12:00 03/16/23 17:18 Guaifenesin-Dm 100-10mg/5ml 10 Ml Cup PO 03/19/23 12:01 10 ml Q6HR EMILIANO Administration Heparin Sodium (Porcine) 5,000 unit 03/15/23 00:00 03/16/23 17:18 Heparin Sodium,Porcine 5,000 Unit/Ml 1 Ml Vial SQ 5,000 unit Q8HR EMILIANO Administration Ceftriaxone Sodium 2 gm/ 50 mls @ 100 mls/hr 03/16/23 09:00 03/16/23 08:28 Sodium Chloride IVPB 100 mls/hr Q24HR EMILIANO Administration Insulin Aspart 0 unit 03/14/23 21:00 03/16/23 22:15 Insulin Aspart (Novolog) 100 Unit/Ml Vial SQ Not Given ACHS EMILIANO Protocol Insulin Aspart 6 unit 03/16/23 18:15 03/16/23 18:57 Insulin Aspart (Novolog) 100 Unit/Ml Vial SQ 6 unit TID-W/MEALS EMILIANO Administration Insulin Detemir 28 unit 03/14/23 21:00 03/16/23 22:22 Insulin Detemir (Levemir) 100 Unit/Ml Syr SQ 28 unit HS EMILIANO Administration Naloxone HCl 0.2 mg 03/14/23 16:43 Naloxone 0.4 Mg/Ml 1 Ml Vial IV Q2M PRN Opioid Reversal Nystatin 1 applic 03/15/23 02:00 03/15/23 06:26 Nystatin 100,000unit/Gm Cream 30 Gm Tube TOPICAL 1 applic BID PRN Administration Skin Irritation Protocol Oseltamivir Phosphate 30 mg 03/15/23 12:30 03/16/23 09:16 Oseltamivir 60 Mg/10 Ml Oral Syringe PO 03/19/23 09:01 30 mg DAILY EMILIANO Administration Protocol Petrolatum 1 applic 03/15/23 00:39 03/15/23 06:27 Zinc Oxide Paste (Z-Guard) 1 Applic TOPICAL 1 applic DAILY PRN Administration Wound Healing Protocol Pregabalin 75 mg 03/14/23 21:00 03/16/23 22:21 Pregabalin 75 Mg Cap PO 75 mg BID EMILIANO Administration Topiramate 25 mg 03/14/23 21:00 03/16/23 22:21 Topiramate 25 Mg Tab PO 25 mg BID EMILIANO Administration Objective - Vital Signs Vital signs: Vital Signs Temp 98.5 F 03/16/23 08:01 Pulse 60 03/16/23 08:01 Resp 19 03/16/23 08:01 BP 126/96 03/16/23 08:01 Pulse Ox 95 03/16/23 08:01 FiO2 Intake & Output 03/15/23 03/16/23 03/16/23 18:59 06:59 18:59 Output Total 900 700 Balance -900 -700 Output: Urine 900 700 Other: Voiding Method Indwelling Catheter Indwelling Catheter # Bowel Movements 1 - Exam GENERAL: The patient is alert and oriented x3, not in any acute distress. Well developed, well nourished. HEENT: Pupils are round and equally reacting to light. EOMI. No scleral icterus. No conjunctival pallor. Normocephalic, atraumatic. No pharyngeal erythema. No thyromegaly. CARDIOVASCULAR: S1 and S2 present. No murmurs, rubs, or gallops. PULMONARY: Chest is clear to auscultation, no wheezing , no crackles. ABDOMEN: Soft, nontender, nondistended, normoactive bowel sounds. No palpable organomegaly. MUSCULOSKELETAL: No joint swelling or deformity. EXTREMITIES: No cyanosis, clubbing, or pedal edema. NEUROLOGICAL: Gross neurological examination did not reveal any focal deficits. SKIN: No rashes. no petechiae. - Labs CBC & Chem 7: 03/16/23 05:21 03/16/23 05:21 Labs: Abnormal Lab Results - Last 24 Hours (Table) 03/15/23 03/15/23 03/15/23 Range/Units 07:06 16:48 20:07 WBC (4.50-10.00) X 10*3/uL RBC (4.10-5.20) X 10*6/uL Hgb (12.0-15.0) g/dL Hct (37.2-46.3) % MCHC (32.0-37.0) g/dL RDW (11.5-14.5) % Lymphocytes # (0.90-5.00) X 10*3/uL Eosinophils # (0.04-0.35) X 10*3/uL BUN (9.0-27.0) mg/dL Creatinine (0.6-1.5) mg/dL Est GFR (CKD-EPI) (>=60) Glucose (70-110) mg/dL POC Glucose (mg/dL) 150 H 208 H (70-110) mg/dL Hemoglobin A1c 10.8 H (<=6.0) % Calcium (8.7-10.3) mg/dL 03/16/23 03/16/23 03/16/23 Range/Units 05:21 05:21 05:52 WBC 4.02 L (4.50-10.00) X 10*3/uL RBC 3.60 L (4.10-5.20) X 10*6/uL Hgb 10.7 L (12.0-15.0) g/dL Hct 34.5 L (37.2-46.3) % MCHC 31.0 L (32.0-37.0) g/dL RDW 14.6 H (11.5-14.5) % Lymphocytes # 0.70 L (0.90-5.00) X 10*3/uL Eosinophils # 0.01 L (0.04-0.35) X 10*3/uL BUN 31.1 H (9.0-27.0) mg/dL Creatinine 1.9 H (0.6-1.5) mg/dL Est GFR (CKD-EPI) 28 L (>=60) Glucose 210 H (70-110) mg/dL POC Glucose (mg/dL) 181 H (70-110) mg/dL Hemoglobin A1c (<=6.0) % Calcium 8.2 L (8.7-10.3) mg/dL Microbiology - Last 24 Hours (Table) 03/14/23 14:45 Blood Culture Gram Stain - Preliminary Blood Blood Culture - Preliminary Gram Neg Bacilli Assessment and Plan Assessment: Acute influenza infection Acute kidney injury and a chronic kidney disease stage III Urinary tract infection Hypertension History of CVA/TIA History of sleep apnea Plan: Continue with ceftriaxone Continue with Tamiflu infectious disease consult Follow-up culture resultsN blood culture results Patient's wants to discontinue Montgomery catheter and continue to check bladder scan Labs and medication were reviewed.. Continue same treatment. Continue with sy mptomatic treatment. Resume home medication. Monitor labs and vitals. DVT and GI prophylaxis. Further recommendations as per clinical course of the patient DVT prophylaxis: Subcutaneous heparin GI Prophylaxis: Pepcid Prognosis is guarded
[2023-03-17 06:28] LABS: Glucose,Whole Blood 121 mg/dL (70-110)
[2023-03-17 08:51] LABS: BUN/Creat Ratio 17.65 Ratio (12.00-20.00); Calcium 8.6 mg/dL (8.7-10.3); Carbon Dioxide 25.1 mmol/L (21.6-31.8); Chloride 107 mmol/L (96-109); Glucose 140 mg/dL (70-110); Potassium 4.7 mmol/L (3.5-5.5); Sodium 143 mmol/L (135-145)
[2023-03-17] MEDS ORDERED: FAMOTIDINE 20 MG/2 ML VIAL IV SCH (09:00)
[2023-03-17 09:32] LABS: Basophils # (A) 0.01 X 10*3/uL (0.00-0.10); Basophils % (A) 0.3 %; Eosinophils # (A) 0.04 X 10*3/uL (0.04-0.35); Eosinophils % (A) 1.3 %; HCT 37.9 % (37.2-46.3); HGB 11.4 g/dL (12.0-15.0); Lymphocytes # (A) 0.93 X 10*3/uL (0.90-5.00); Lymphocytes % (A) 29.1 %; MCH 28.9 pg (27.0-32.0); MCHC 30.1 g/dL (32.0-37.0); MCV 95.9 FL (80.0-97.0); Mean Platelet Volume 12.3 FL (9.5-12.2); Monocytes # (A) 0.34 X 10*3/uL (0.20-1.00); Monocytes % (A) 10.6 %; NRBC Per 100 WBC 0 X 10*3/uL (0.00-0.01); Neutrophils # (A) 1.87 X 10*3/uL (1.80-7.70); Neutrophils % (A) 58.4 %; Platelet Count 146 X 10*3/uL (140-440); RBC 3.95 X 10*6/uL (4.10-5.20); RDW 14.6 % (11.5-14.5)
--- NOTE | 2023-03-17 09:42 | P.PN ---
Subjective 67-year-old female presents to the emergency department complaining of weakness. Family called EMS because she was weak normal. Patient is alert and oriented x 3 there is no stroke symptoms. Patient states she has had diarrhea for the last few days. Patient denies any chest pain difficulty breathing shortness of breath. Patient states she has had a cough and a little bit of congestion. Patient states her also has similar upper respiratory symptoms. Patient denies any abdominal pain patient denies any nausea or vomiting but again does have diarrhea. Patient denies any extremity weakness or pain. Patient denies any back pain. Patient Nuys any dysuria hematuria urinary frequency. Patient is a diabetic and has had a stroke Blood work completed in ED reveals a WBC of 6.6, hemoglobin 13.1 and platelet count of 171, sodium 136, potassium 5.3, BUN of 33, creatinine of 2.2 and blood glucose of 297 EKG shows normal sinus rhythm with no acute ST or T wave changes 03/16/2023 Patient with no significant dyspnea or tachypnea at rest She has a lot of, coughing, Robitussin is added Patient was not on oxygen at home No chest pain No previous vaccination against influenza Her urine was dark and smelly but no signs and symptoms of UTI but no dysuria or urgency or change in frequency Creatinine came down to 1.9 which is close to baseline. Patient eating and drinking. IV fluids discontinued She remains on Tamiflu and ceftriaxone 03/17/2023 Patient patient breathing is better, coughing is better No chest pain Appetite is better, no diarrhea no abdominal pain Generalized weakness improving as well Patient was admitted for UTI and influenza A and Instruction on Tamiflu. All the fluid (normal saline ) was discontinued as well as Montgomery catheter. Patient currently blood pressure stable and close monitoring Hemoglobin 11.4, creatinine down to 1.7. Glucose was low this morning 44 and we lowered December 2017 is down to 25 units, probably because of the low appetite however patient eventually will requires better glucose control. Objective - Vital Signs Vital signs: Vital Signs Temp 97.9 F 03/17/23 07:28 Pulse 58 L 03/17/23 07:28 Resp 19 03/17/23 07:28 BP 139/76 03/17/23 07:28 Pulse Ox 98 03/17/23 07:28 FiO2 Intake & Output 02/05/24 02/06/24 02/06/24 18:59 06:59 18:59 Output Total 500 300 Balance -500 -300 Weight 136.078 kg Output: Urine 500 300 Other: Voiding Method Indwelling Catheter Toilet Bedpan Bedpan Diaper External Catheter # Voids 1 - Exam GENERAL: The patient is alert and oriented x3, not in any acute distress. Well developed, well nourished. HEENT: Pupils are round and equally reacting to light. EOMI. No scleral icterus. No conjunctival pallor. Normocephalic, atraumatic. No pharyngeal erythema. No thyromegaly. CARDIOVASCULAR: S1 and S2 present. No murmurs, rubs, or gallops. PULMONARY: Chest is clear to auscultation, no wheezing , no crackles. ABDOMEN: Soft, nontender, nondistended, normoactive bowel sounds. No palpable organomegaly. MUSCULOSKELETAL: No joint swelling or deformity. EXTREMITIES: No cyanosis, clubbing, or pedal edema. NEUROLOGICAL: Gross neurological examination did not reveal any focal deficits. SKIN: No rashes. no petechiae. - Labs CBC & Chem 7: 03/17/23 05:25 03/17/23 05:25 Labs: Abnormal Lab Results - Last 24 Hours (Table) 03/16/23 03/16/23 03/17/23 Range/Units 16:58 20:48 05:25 WBC 3.20 L (4.50-10.00) X 10*3/uL RBC 3.95 L (4.10-5.20) X 10*6/uL Hgb 11.4 L (12.0-15.0) g/dL MCHC 30.1 L (32.0-37.0) g/dL RDW 14.6 H (11.5-14.5) % MPV 12.3 H (9.5-12.2) FL BUN (9.0-27.0) mg/dL Creatinine (0.6-1.5) mg/dL Est GFR (CKD-EPI) (>=60) Glucose (70-110) mg/dL POC Glucose (mg/dL) 44 L 146 H (70-110) mg/dL Calcium (8.7-10.3) mg/dL 03/17/23 03/17/23 Range/Units 05:25 06:27 WBC (4.50-10.00) X 10*3/uL RBC (4.10-5.20) X 10*6/uL Hgb (12.0-15.0) g/dL MCHC (32.0-37.0) g/dL RDW (11.5-14.5) % MPV (9.5-12.2) FL BUN 30.0 H (9.0-27.0) mg/dL Creatinine 1.7 H (0.6-1.5) mg/dL Est GFR (CKD-EPI) 32 L (>=60) Glucose 140 H (70-110) mg/dL POC Glucose (mg/dL) 121 H (70-110) mg/dL Calcium 8.6 L (8.7-10.3) mg/dL Microbiology - Last 24 Hours (Table) 03/14/23 14:45 Blood Culture Gram Stain - Final Blood Blood Culture - Final Escherichia coli 03/14/23 13:50 Urine Culture - Preliminary Urine,Catheterized Gram Neg Bacilli Assessment and Plan Assessment: Acute influenza infection Acute kidney injury and a chronic kidney disease stage III Urinary tract infection Hypertension History of CVA/TIA History of sleep apnea Plan: Continue with ceftriaxone Continue with Tamiflu infectious disease consult Follow-up culture resultsN blood culture results Patient's wants to discontinue Montgomery catheter and continue to check bladder scan Labs and medication were reviewed.. Continue same treatment. Continue with symptomatic treatment. Resume home medication. Monitor labs and vitals. DVT and GI prophylaxis. Further recommendations as per clinical course of the patient DVT prophylaxis: Subcutaneous heparin GI Prophylaxis: Pepcid Prognosis is guarded
[2023-03-17] MEDS: FAMOTIDINE 20 MG TAB PO SCH (10:43)
[2023-03-17] MEDS: cefTRIAXone 2 GM VIAL IM SCH (10:44)
[2023-03-17 11:49] LABS: Glucose,Whole Blood 129 mg/dL (70-110)
[2023-03-17 17:31] LABS: Glucose,Whole Blood 144 mg/dL (70-110)
[2023-03-17] MEDS: OSELTAMIVIR 60 MG/10 ML ORAL SYRINGE PO SCH (20:56)
[2023-03-17 21:02] LABS: Glucose,Whole Blood 80 mg/dL (70-110)
[2023-03-17] MEDS: INSULIN DETEMIR (LEVEMIR) 100 UNIT/ML SYR SQ SCH (21:05)
--- NOTE | 2023-03-17 22:27 | P.CONS ---
History of Present Illness - Reason for Consult Consult date: 03/17/23 - History of Present Illness Patient is a 67-year-old female with a past medical history significant for diabetes mellitus hypertension hyperlipidemia reflux CVA TIA patient presenting to the ER 3 days ago for evaluation of weakness family called EMS the patient was weak than normal symptom apparently has been going on for few days before the patient was brought into the ER patient denies having any headache did have mild URI symptoms along with some bodyaches patient denies having any chest pain shortness of breath occasional cough some nausea but no vomiting no abdominal pain and no diarrhea and no significant urinary symptoms with the symptoms the patient has been evaluated on presentation to the hospital patient did have a low-grade fever of 99.3 F patient was nontachycardic hypotensive and mild hypoxemia currently on 2 L nasal cannula oxygen patient did have a white count of 6.6 admission currently 3.20 BUN/creatinine has been mildly elevated liver isms are normal CRP was elevated urine has been positive she also tested positive for influenza A blood cultures coming back positive with gram-negative bacilli prompting this infectious disease consultation patient did have a chest x-ray no acute cardiopulmonary disease process Past Medical History Past Medical History: CVA/TIA, Diabetes Mellitus, GERD/Reflux, Hyperlipidemia, Hypertension, Renal Disease, Rheumatoid Arthritis (RA), Sleep Apnea/CPAP/BIPAP Additional Past Medical History / Comment(s): CKD stage 3, broken Lt foot 2011- no sx, stroke 2004 affected non dominant lt side . lt side weaker than rt", vertigo, neck pain, mini stroke nov 2016. EARL and she has not used CPAP, RA, HTN, GERD, DM2 , right big toe ulcer. 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 2 adult children. No tobacco or alcohol use. No experience. No international travel. Pet cats at home they are not new. Used to work in a care of handicapped persons Smoking Status: Never smoker Past Alcohol Use History: None Reported Past Drug Use History: None Reported - Past Family History Mother Family Medical History: Diabetes Mellitus Additional Family Medical History / Comment(s): heart attack, Brother of lung cancer 04/19/14 Father Family Medical History: Cancer Additional Family Medical History / Comment(s): lung cancer Brother(s) Family Medical History: Cancer Additional Family Medical History / Comment(s): LUNG Medications and Allergies Home Medications Medication Instructions Recorded Confirmed Type DULoxetine HCL [Cymbalta] 60 mg PO BID 09/30/13 03/14/23 History calcitrioL 0.5 mcg PO DAILY 09/30/13 03/14/23 History Topiramate [Topamax] 25 mg PO BID 07/06/16 03/14/23 History Atorvastatin [Lipitor] 40 mg PO DAILY 01/06/17 03/14/23 History carvediloL [Coreg*] 12.5 mg PO BID 04/06/18 03/14/23 History INSULIN ASPART (NovoLOG) [NovoLOG 12 unit SQ TID-W/MEALS 09/29/19 03/14/23 History (formulary)] Pregabalin [Lyrica] 75 mg PO BID 09/29/19 03/14/23 History amLODIPine [Norvasc] 10 mg PO DAILY 09/29/19 03/14/23 History Aspirin EC [Ecotrin Low Dose] 81 mg PO DAILY 07/01/21 03/14/23 History Insulin Glargine,Hum.rec.anlog 28 unit SQ HS 07/01/21 03/14/23 History [Lantus Solostar Pen] Nystatin 100,000Unit/gm Cream 1 applic TOPICAL BID PRN 07/01/21 03/14/23 History [Mycostatin Cream] Nystatin [Nystop] 1 applic TOPICAL BID PRN 07/01/21 03/14/23 History Acetaminophen Tab [Tylenol] 650 mg PO Q6HR PRN tab 02/25/22 03/14/23 Rx HYDROcodone/APAP 5-325MG [Banning 1 tab PO TID 03/14/23 03/14/23 History 5-325] Silver Sulfadiazine [Silver 1 applic TOPICAL BID PRN 03/14/23 03/14/23 History Sulfadiazine 1%] Allergies Allergy/AdvReac Type Severity Reaction Status Date / Time NSAIDS (Non-Steroidal Allergy Unknown Verified 03/14/23 17:22 Anti-Inflamma Physical Exam Vitals: Vital Signs Temp Pulse Resp BP Pulse Ox 03/17/23 07:28 97.9 F 58 L 19 139/76 98 03/17/23 00:32 97.9 F 65 17 124/64 98 03/16/23 19:41 97.9 F 56 L 16 146/71 100 03/16/23 17:21 59 L 108/67 03/16/23 13:26 98.2 F 60 19 146/66 98 Intake and Output 03/16/23 03/17/23 03/17/23 22:59 06:59 14:59 Output Total 500 300 Balance -500 -300 Output: Urine 500 300 Other: Voiding Method Toilet Bedpan Bedpan Diaper External Catheter # Voids 1 Weight 136.078 kg Results CBC & Chem 7: 03/19/23 07:11 03/19/23 07:11 Labs: Abnormal Lab Results - Last 24 Hours (Table) 03/16/23 03/16/23 03/17/23 Range/Units 16:58 20:48 05:25 WBC 3.20 L (4.50-10.00) X 10*3/uL RBC 3.95 L (4.10-5.20) X 10*6/uL Hgb 11.4 L (12.0-15.0) g/dL MCHC 30.1 L (32.0-37.0) g/dL RDW 14.6 H (11.5-14.5) % MPV 12.3 H (9.5-12.2) FL BUN (9.0-27.0) mg/dL Creatinine (0.6-1.5) mg/dL Est GFR (CKD-EPI) (>=60) Glucose (70-110) mg/dL POC Glucose (mg/dL) 44 L 146 H (70-110) mg/dL Calcium (8.7-10.3) mg/dL 03/17/23 03/17/23 Range/Units 05:25 06:27 WBC (4.50-10.00) X 10*3/uL RBC (4.10-5.20) X 10*6/uL Hgb (12.0-15.0) g/dL MCHC (32.0-37.0) g/dL RDW (11.5-14.5) % MPV (9.5-12.2) FL BUN 30.0 H (9.0-27.0) mg/dL Creatinine 1.7 H (0.6-1.5) mg/dL Est GFR (CKD-EPI) 32 L (>=60) Glucose 140 H (70-110) mg/dL POC Glucose (mg/dL) 121 H (70-110) mg/dL Calcium 8.6 L (8.7-10.3) mg/dL Microbiology - Last 24 Hours (Table) 03/14/23 14:45 Blood Culture Gram Stain - Final Blood Blood Culture - Final Escherichia coli 03/14/23 13:50 Urine Culture - Preliminary Urine,Catheterized Gram Neg Bacilli Assessment and Plan Plan: 1patient presented to hospital with generalized weakness which is likely multifactorial this patient to have some URI symptoms and also tested positive f or acute influenza A more likely contributing to some of her symptoms 2-patient did have a positive UA and now evidence of E. coli bacteremia source is likely urinary even though the patient denies any urinary symptoms not sure we can call it asymptomatic bacteriuria in view of the bacteremia as both the urine and blood culture are the same pathogen 3-we will obtain ultrasound of the kidney bladder to make sure evidence of any obstructive uropathy or abscess 4-blood cultures will be repeated 5-patient to continue with Tamiflu to finish a 5-day course of therapy 6Rocephin 2 g daily to continue while waiting for the workup to be completed We will follow on clinical condition and cultures to further adjust medication if needed Thank you for this consultation we will follow the patient along with you Dictation was produced using [employer] dictation software. please excuse any grammatical, word or spelling errors. Time with Patient: Greater than 30
[2023-03-18 05:51] LABS: Glucose,Whole Blood 133 mg/dL (70-110)
[2023-03-18 08:52] LABS: Basophils % (A) 1 %; Eosinophils # (A) 0.1 k/uL (0-0.7); Eosinophils % (A) 2 %; HCT 38.2 % (34.0-46.0); HGB 11.8 gm/dL (11.4-16.0); Hypochromasia Moderate; Lymphocytes # (A) 0.9 k/uL (1.0-4.8); Lymphocytes % (A) 31 %; MCH 29.8 pg (25.0-35.0); MCHC 30.8 g/dL (31.0-37.0); MCV 96.5 fL (80.0-100.0); Mean Platelet Volume 8.7; Monocytes # (A) 0.2 k/uL (0-1.0); Monocytes % (A) 7 %; Neutrophils # (A) 1.7 k/uL (1.3-7.7); Neutrophils % (A) 57 %; Platelet Count 150 k/uL (150-450); RBC 3.95 m/uL (3.80-5.40); RDW 14.4 % (11.5-15.5)
--- NOTE | 2023-03-18 09:40 | US ---
EXAMINATION TYPE: US kidneys/renal and bladder DATE OF EXAM: 03/18/2023 COMPARISON: 10/01/2019 CLINICAL INDICATION: Female, 67 years old with history of uti and bacteremia; UTI bacteremia EXAM MEASUREMENTS: Right Kidney: 9.6x4.4x4.6 cm Left Kidney: 10.8x5.1x5.9 cm Right Kidney: No hydronephrosis or masses seen Left Kidney: No hydronephrosis or masses seen Bladder: wnl Bilateral Jets seen: Yes There is no evidence for hydronephrosis at this point in time. No nephrolithiasis is seen. No perlita s are identified. The urinary bladder is anechoic. Bilateral ureteral jets are seen. exam severely limited by large body habitus, patient inability to change positioning, and overlying b owel gas IMPRESSION: Limited exam, no evidence for obstructive uropathy.
[2023-03-18] MEDS: ACETAMINOPHEN TAB 325 MG TAB PO PRN (11:17)
[2023-03-18 11:52] LABS: Glucose,Whole Blood 256 mg/dL (70-110)
--- NOTE | 2023-03-18 12:43 | P.PN ---
Subjective 67-year-old female presents to the emergency department complaining of weakness. Family called EMS because she was weak normal. Patient is alert and oriented x 3 there is no stroke symptoms. Patient states she has had diarrhea for the last few days. Patient denies any chest pain difficulty breathing shortness of breath. Patient states she has had a cough and a little bit of congestion. Patient states her also has similar upper respiratory symptoms. Patient denies any abdominal pain patient denies any nausea or vomiting but again does have diarrhea. Patient denies any extremity weakness or pain. Patient denies any back pain. Patient [place] any dysuria hematuria urinary frequency. Patient is a diabetic and has had a stroke Blood work completed in ED reveals a WBC of 6.6, hemoglobin 13.1 and platelet count of 171, sodium 136, potassium 5.3, BUN of 33, creatinine of 2.2 and blood glucose of 297 EKG shows normal sinus rhythm with no acute ST or T wave changes 03/16/2023 Patient with no significant dyspnea or tachypnea at rest She has a lot of, coughing, Robitussin is added Patient was not on oxygen at home No chest pain No previous vaccination against influenza Her urine was dark and smelly but no signs and symptoms of UTI but no dysuria or urgency or change in frequency Creatinine came down to 1.9 which is close to baseline. Patient eating and drinking. IV fluids discontinued She remains on Tamiflu and ceftriaxone 03/17/2023 Patient patient breathing is better, coughing is better No chest pain Appetite is better, no diarrhea no abdominal pain Generalized weakness improving as well Patient was admitted for UTI and influenza A and Instruction on Tamiflu. All the fluid (normal saline ) was discontinued as well as Montgomery catheter. Patient currently blood pressure stable and close monitoring Hemoglobin 11.4, creatinine down to 1.7. Glucose was low this morning 44 and we lowered December 2017 is down to 25 units, probably because of the low appetite however patient eventually will requires better glucose control. 03/18/2023 Patient main symptoms today is generalized weakness since admission She is much of respiratory or urinary symptoms. Chest been complaining of from exertional dyspnea at certain point but she is sitting in bed most of the time currently She is hemodynamically stable Remains on ceftriaxone for UTI and E. coli bacteremia. She's also remains on Tamiflu for influenza infection Objective - Vital Signs Vital signs: Vital Signs Temp 97.7 F 03/18/23 07:39 Pulse 62 03/18/23 07:39 Resp 19 03/18/23 07:39 BP 179/61 03/18/23 07:39 Pulse Ox 96 03/18/23 07:39 FiO2 Intake & Output 03/17/23 03/18/23 03/18/23 18:59 06:59 18:59 Intake Total 250 Output Total 600 600 Balance -600 -600 250 Intake: Oral 250 Output: Urine 600 600 Other: Voiding Method Bedpan External Catheter Incontinent Diaper External Catheter External Catheter - Exam GENERAL: The patient is alert and oriented x3, not in any acute distress. Well developed, well nourished. HEENT: Pupils are round and equally reacting to light. EOMI. No scleral icterus. No conjunctival pallor. Normocephalic, atraumatic. No pharyngeal erythema. No thyromegaly. CARDIOVASCULAR: S1 and S2 present. No murmurs, rubs, or gallops. PULMONARY: Chest is clear to auscultation, no wheezing , no crackles. ABDOMEN: Soft, nontender, nondistended, normoactive bowel sounds. No palpable organomegaly. MUSCULOSKELETAL: No joint swelling or deformity. EXTREMITIES: No cyanosis, clubbing, or pedal edema. NEUROLOGICAL: Gross neurological examination did not reveal any focal deficits. SKIN: No rashes. no petechiae. - Labs CBC & Chem 7: 03/18/23 08:26 03/17/23 05:25 Labs: Abnormal Lab Results - Last 24 Hours (Table) 03/17/23 03/18/23 03/18/23 Range/Units 17:30 05:50 08:26 WBC 3.0 L (3.8-10.6) k/uL MCHC 30.8 L (31.0-37.0) g/dL Lymphocytes # 0.9 L (1.0-4.8) k/uL POC Glucose (mg/dL) 144 H 133 H (70-110) mg/dL 03/18/23 Range/Units 11:51 WBC (3.8-10.6) k/uL MCHC (31.0-37.0) g/dL Lymphocytes # (1.0-4.8) k/uL POC Glucose (mg/dL) 256 H (70-110) mg/dL Microbiology - Last 24 Hours (Table) 03/14/23 13:50 Urine Culture - Final Urine,Catheterized Escherichia coli 03/14/23 14:45 Blood Culture Gram Stain - Final Blood Blood Culture - Final Escherichia coli Assessment and Plan Assessment: Acute influenza infection Acute kidney injury and a chronic kidney disease stage III Urinary tract infection Hypertension History of CVA/TIA History of sleep apnea Plan: Continue with ceftriaxone Continue with Tamiflu infectious disease consult Follow-up culture resultsN blood culture results Patient's wants to discontinue Montgomery catheter and continue to check bladder scan Labs and medication were reviewed.. Continue same treatment. Continue with symptomatic treatment. Resume home medication. Monitor labs and vitals. DVT and GI prophylaxis. Further recommendations as per clinical course of the patient DVT prophylaxis: Subcutaneous heparin GI Prophylaxis: Pepcid Prognosis is guarded
[2023-03-18 16:49] LABS: Glucose,Whole Blood 197 mg/dL (70-110)
[2023-03-18 21:26] LABS: Glucose,Whole Blood 167 mg/dL (70-110)
[2023-03-19 05:46] LABS: Glucose,Whole Blood 112 mg/dL (70-110)
[2023-03-19 08:21] VITALS: RESP 18
[2023-03-19 11:42] LABS: HCT 38.2 % (37.2-46.3); HGB 11.7 g/dL (12.0-15.0); MCH 29.3 pg (27.0-32.0); MCHC 30.6 g/dL (32.0-37.0); MCV 95.5 FL (80.0-97.0); Mean Platelet Volume 12.1 FL (9.5-12.2); NRBC Per 100 WBC 0 X 10*3/uL (0.00-0.01); Platelet Count 183 X 10*3/uL (140-440); WBC 3.66 X 10*3/uL (4.50-10.00)
[2023-03-19 11:57] LABS: Glucose,Whole Blood 147 mg/dL (70-110)
[2023-03-19 12:06] LABS: BUN/Creat Ratio 16.15 Ratio (12.00-20.00); Calcium 9.1 mg/dL (8.7-10.3); Carbon Dioxide 24.8 mmol/L (21.6-31.8); Chloride 106 mmol/L (96-109); Glucose 158 mg/dL (70-110); Potassium 3.7 mmol/L (3.5-5.5); Sodium 142 mmol/L (135-145)
[2023-03-19 12:27] LABS: Basophils # (A) 0.01 X 10*3/uL (0.00-0.10); Basophils % (A) 0.3 %; Eosinophils # (A) 0.06 X 10*3/uL (0.04-0.35); Eosinophils % (A) 1.6 %; Lymphocytes # (A) 1.17 X 10*3/uL (0.90-5.00); Monocytes # (A) 0.31 X 10*3/uL (0.20-1.00); Monocytes % (A) 8.5 %; Neutrophils # (A) 2.08 X 10*3/uL (1.80-7.70); Neutrophils % (A) 56.8 %; RBC Morphology Normal (Normal)
--- NOTE | 2023-03-19 14:39 | P.PN ---
Subjective Progress Note Date: 03/18/23 Principal diagnosis: Reason for follow-up is acute influenza A E. coli UTI and bacteremia Patient is a 67-year-old female with a past medical history significant for diabetes mellitus hypertension hyperlipidemia reflux CVA TIA patient presenting to the ER for evaluation of weakness patient did have a low- grade fever positive UA subsequently blood and urine cultures came back positive with E. coli and the patient also tested positive for influenza A On today's evaluation that is 03/18/2023, the patient is afebrile, patient is on 2 L nasal cannula oxygen the patient denies chest pain shortness of breath or cough, patient denies nausea no vomiting no abdominal pain and no diarrhea has been reported. Patient white count is 3.0, creatinine is 1.7 as of yesterday blood urine with E. coli repeat blood culture so far pending, abdominal ultrasound no evidence for obstructive uropathy Objective - Vital Signs Vital signs: Vital Signs Temp 97.7 F 03/18/23 07:39 Pulse 62 03/18/23 07:39 Resp 19 03/18/23 07:39 BP 179/61 03/18/23 07:39 Pulse Ox 96 03/18/23 07:39 FiO2 Intake & Output 03/17/23 03/18/23 03/18/23 18:59 06:59 18:59 Output Total 600 600 Balance -600 -600 Output: Urine 600 600 Other: Voiding Method Bedpan External Catheter Incontinent Diaper External Catheter External Catheter - Exam GENERAL DESCRIPTION: An elderly female lying in bed in no distress RESPIRATORY SYSTEM: Unlabored breathing , decreased breath sounds at bases HEART: S1 S2 regular rate and rhythm , ABDOMEN: Soft , no tenderness EXTREMITIES: Diffuse swelling bilateral lower extremity no redness - Labs CBC & Chem 7: 03/19/23 07:11 03/19/23 07:11 Labs: Abnormal Lab Results - Last 24 Hours (Table) 03/17/23 03/18/23 03/18/23 Range/Units 17:30 05:50 08:26 WBC 3.0 L (3.8-10.6) k/uL MCHC 30.8 L (31.0-37.0) g/dL Lymphocytes # 0.9 L (1.0-4.8) k/uL POC Glucose (mg/dL) 144 H 133 H (70-110) mg/dL 03/18/23 Range/Units 11:51 WBC (3.8-10.6) k/uL MCHC (31.0-37.0) g/dL Lymphocytes # (1.0-4.8) k/uL POC Glucose (mg/dL) 256 H (70-110) mg/dL Microbiology - Last 24 Hours (Table) 03/14/23 13:50 Urine Culture - Final Urine,Catheterized Escherichia coli 03/14/23 14:45 Blood Culture Gram Stain - Final Blood Blood Culture - Final Escherichia coli Assessment and Plan (1) E coli bacteremia Current Visit: Yes Status: Acute Code(s): R78.81 - BACTEREMIA; B96.20 - UNSP ESCHERICHIA COLI THE CA[facility]EASES [facility] Code(s): 246113234289 (2) Influenza A Current Visit: Yes Status: Acute Code(s): J10.1 - FLU DUE TO OTH IDENT INFLUENZA VIRUS W OTH RESP MANIFEST SNOMED Code(s): 992926427 (3) Urinary tract infection Current Visit: Yes Status: Acute Code(s): N39.0 - URINARY TRACT INFECTION, SITE NOT SPECIFIED SNOMED Code(s): 69468844 Plan: 1patient presented to hospital with generalized weakness which is likely multifactorial this patient to have some URI symptoms and also tested positive for acute influenza A more likely contributing to some of her symptoms 2-patient did have a positive UA and now evidence of E. coli bacteremia source is likely urinary even though the patient denies any urinary symptoms not sure we can call it asymptomatic bacteriuria in view of the bacteremia as both the urine and blood culture are the same pathogen 3- ultrasound of the kidney bladder with evidence of obstructive uropathy 4-blood cultures repeated currently pending 5-patient to continue with Tamiflu to finish a 5-day course of therapy 6patient to continue with Rocephin 2 g daily and monitor clinical course closely Dictation was produced using [employer] software. please excuse any grammatical, word or spelling errors. Time with Patient: Less than 30
--- NOTE | 2023-03-19 14:40 | P.PN ---
Subjective Progress Note Date: 03/19/23 Principal diagnosis: Reason for follow-up is acute influenza A E. coli UTI and bacteremia Patient is a 67-year-old female with a past medical history significant for diabetes mellitus hypertension hyperlipidemia reflux CVA TIA patient presenting to the ER for evaluation of weakness patient did have a low- grade fever positive UA subsequently blood and urine cultures came back positive with E. coli and the patient also tested positive for influenza A On today's evaluation that is 03/19/2023, the patient remains to be afebrile, patient is currently breathing comfortably on 2 L nasal cannula oxygen, the patient denies chest pain and did have occasional dry cough, patient denies abdominal pain, no nausea no vomiting or any diarrhea has been reported. Patient white count is 3.66, creatinine is 1.3 Objective - Vital Signs Vital signs: Vital Signs Temp 97.7 F 03/19/23 07:56 Pulse 61 03/19/23 07:56 Resp 18 03/19/23 07:56 BP 116/71 03/19/23 07:56 Pulse Ox 98 03/19/23 07:56 FiO2 Intake & Output 03/18/23 03/19/23 03/19/23 18:59 06:59 18:59 Intake Total 250 Output Total 326 Balance -76 Weight 136.078 kg Intake: Oral 250 Output: Urine 100 Post Void Residual 226 Other: Voiding Method Incontinent External Catheter External Catheter External Catheter # Voids 2 1 # Bowel Movements 1 - Exam GENERAL DESCRIPTION: An elderly female lying in bed in no distress RESPIRATORY SYSTEM: Unlabored breathing , decreased breath sounds at bases HEART: S1 S2 regular rate and rhythm , ABDOMEN: Soft , no tenderness EXTREMITIES: Diffuse swelling bilateral lower extremity no redness - Labs CBC & Chem 7: 03/19/23 07:11 03/19/23 07:11 Labs: Abnormal Lab Results - Last 24 Hours (Table) 03/18/23 03/18/23 03/19/23 Range/Units 16:47 21:21 05:45 WBC (4.50-10.00) X 10*3/uL RBC (4.10-5.20) X 10*6/uL Hgb (12.0-15.0) g/dL MCHC (32.0-37.0) g/dL Est GFR (CKD-EPI) (>=60) Glucose (70-110) mg/dL POC Glucose (mg/dL) 197 H 167 H 112 H (70-110) mg/dL 03/19/23 03/19/23 03/19/23 Range/Units 07:11 07:11 11:56 WBC 3.66 L (4.50-10.00) X 10*3/uL RBC 4.00 L (4.10-5.20) X 10*6/uL Hgb 11.7 L (12.0-15.0) g/dL MCHC 30.6 L (32.0-37.0) g/dL Est GFR (CKD-EPI) 45 L (>=60) Glucose 158 H (70-110) mg/dL POC Glucose (mg/dL) 147 H (70-110) mg/dL Microbiology - Last 24 Hours (Table) 03/17/23 07:21 Blood Culture - Preliminary Blood Assessment and Plan (1) E coli bacteremia Current Visit: Yes Status: Acute Code(s): R78.81 - BACTEREMIA; B96.20 - UNSP ESCHERICHIA COLI THE CAUSE OF DISEASES CLASSD [facility] SNOMED Code(s): 501 [id number] (2) Influenza A Current Visit: Yes Status: Acute Code(s): J10.1 - FLU DUE TO OTH IDENT INFLUENZA VIRUS W OTH RESP MANIFEST SNOMED Code(s): 347033645 (3) Urinary tract infection Current Visit: Yes Status: Acute Code(s): N39.0 - URINARY TRACT INFECTION, SITE NOT SPECIFIED SNOMED Code(s): 34708009 Plan: 1patient presented to hospital with generalized weakness which is likely multifactorial this patient to have some URI symptoms and also tested positive for acute influenza A more likely contributing to some of her symptoms 2-patient did have a positive UA and now evidence of E. coli bacteremia source is likely urinary even though the patient denies any urinary symptoms not sure we can call it asymptomatic bacteriuria in view of the bacteremia as both the urine and blood culture are the same pathogen 3- ultrasound of the kidney bladder with evidence of obstructive uropathy 4-blood cultures repeated currently pending 5-patient to continue with Tamiflu to finish a 5-day course of therapy 6patient has shown clinical improvement and will continue with Rocephin 2 g daily with a plan to finish therapy with oral antibiotics Dictation was produced using dragon dictation software. please excuse any gramm atical, word or spelling errors. Time with Patient: Less than 30
[2023-03-19 16:07] VITALS: BP 136/65; PULSE 58; TEMP 97.5
--- NOTE | 2023-03-19 22:29 | P.DS ---
Providers Date of admission: 03/14/23 16:43 Attending physician: Lilibeth Chong Consults: 03/16/23 23:13 Consult Physician Urgent Consulting Provider: Garcia Muller Consult Reason/Comments: bacteremia Do you want consulting provider notified?: Yes, Notify in am Primary care physician: Mere Moreno Hospital Course: Diagnoses: Acute influenza infection Acute kidney injury and a chronic kidney disease stage III, improved Urinary tract infection, Secondary to E. coli E. coli bacteremia Hypertension History of CVA/TIA History of sleep apnea Hospital course: 67-year-old female presents to the emergency department complaining of generalized weakness. Problems including incontinence patient was diagnosed with down to 1.7 and 1.3 today which to close to the reference range. Patient urinary symptoms improved, patient with normal respiratory symptoms and she is on room air. She denies chest pain. Cough and is improved. No change in bowel habits. No fever. Patient feels generally weak and physical therapy recommended subacute rehab versus home health care, I discussed with the patient and at bedside. Rehab other wants to go home with home care which is ordered as per my discuss ion with course disease case manager. Patient denies any other symptoms and she and her agree to go home today Patient will be discharged on 3 more days of Tamiflu to finish her course as well as 10 more days of Ceftin per ID team recommendation Patient was cleared for discharge by ID team Problems and management plan were discussed with the patient and he verbalized understanding and acceptance Patient was found stable and can be discharged home in guarded prognosis however he needs follow-up as an outpatient. Patient was instructed to follow up with PCP Dr. Moreno within one week and patient agrees Patient was referred to envelope press operator for better glucose control to f/u in one to two weeks and pt agrees Physical exam Gen: patient is a AAOx3, no distress CVS: S1-S2, RRR, no murmur Lungs: B/L CTA, no wheezing Abdomen: soft, no distention, no tenderness, positive bowel sounds Extremity: no leg edema or induration Time spent more than 35 minutes Patient Condition at Discharge: Stable Plan - Discharge Summary New Discharge Prescriptions: New cefUROXime axetiL [Ceftin] 500 mg PO BID 10 Days #20 tab Oseltamivir 6Mg/ml Oral Susp [Tamiflu] 30 mg PO BID 3 Days #6 each Continue DULoxetine HCL [Cymbalta] 60 mg PO BID calcitrioL 0.5 mcg PO DAILY Topiramate [Topamax] 25 mg PO BID Atorvastatin [Lipitor] 40 mg PO DAILY carvediloL [Coreg*] 12.5 mg PO BID amLODIPine [Norvasc] 10 mg PO DAILY INSULIN ASPART (NovoLOG) [NovoLOG (formulary)] 12 unit SQ TID-W/MEALS Pregabalin [Lyrica] 75 mg PO BID Insulin Glargine,Hum.rec.anlog [Lantus Solostar Pen] 28 unit SQ HS Acetaminophen Tab [Tylenol] 650 mg PO Q6HR PRN tab PRN Reason: Fever And/ Or Pain Silver Sulfadiazine [Silver Sulfadiazine 1%] 1 applic TOPICAL BID PRN PRN Reason: wounds/rash HYDROcodone/APAP 5-325MG [[place] 5-325] 1 tab PO TID Aspirin EC [Ecotrin Low Dose] 81 mg PO DAILY Nystatin [Nystop] 1 applic TOPICAL BID PRN PRN Reason: Skin Irritation Nystatin 100,000Unit/gm Cream [Mycostatin Cream] 1 applic TOPICAL BID PRN PRN Reason: Skin Irritation Discharge Medication List DULoxetine HCL [Cymbalta] 60 mg PO BID 09/30/13 [History] calcitrioL 0.5 mcg PO DAILY 09/30/13 [History] Topiramate [Topamax] 25 mg PO BID 07/06/16 [History] Atorvastatin [Lipitor] 40 mg PO DAILY 01/06/17 [History] carvediloL [Coreg*] 12.5 mg PO BID 04/06/18 [History] INSULIN ASPART (NovoLOG) [NovoLOG (formulary)] 12 unit SQ TID-W/MEALS 09/29/19 [History] Pregabalin [Lyrica] 75 mg PO BID 09/29/19 [History] amLODIPine [Norvasc] 10 mg PO DAILY 09/29/19 [History] Aspirin EC [Ecotrin Low Dose] 81 mg PO DAILY 07/01/21 [History] Insulin Glargine,Hum.rec.anlog [Lantus Solostar Pen] 28 unit SQ HS 07/01/21 [History] Nystatin 100,000Unit/gm Cream [Mycostatin Cream] 1 applic TOPICAL BID PRN 07/01/21 [History] Nystatin [Nystop] 1 applic TOPICAL BID PRN 07/01/21 [History] Acetaminophen Tab [Tylenol] 650 mg PO Q6HR PRN tab 02/25/22 [Rx] HYDROcodone/APAP 5-325MG [[place] 5-325] 1 tab PO TID 03/14/23 [History] Silver Sulfadiazine [Silver Sulfadiazine 1%] 1 applic TOPICAL BID PRN 03/14/23 [History] Oseltamivir 6Mg/ml Oral Susp [Tamiflu] 30 mg PO BID 3 Days #6 each 03/19/23 [Rx] cefUROXime axetiL [Ceftin] 500 mg PO BID 10 Days #20 tab 03/19/23 [Rx] Follow up Appointment(s)/Referral(s): Nursing,[facility] [NON-STAFF] - As Needed Jose Cummings MD [REFERRING] - 2 Weeks ([facility] doctor ) Mere Moreno DO [Primary Care Provider] - 1-2 days Patient Instructions/Handouts: Urinary Tract Infection in Women (DC), Influenza (DC) Activity/Diet/Wound Care/Special Instructions: heart healthy diet activity is restricted till you see your doctor we recommend to check your glucose 4 times daily , before each meal and at bed time , keep the results on a log book and bring it to your doctor on your appointment date if your glucose is less than 70 or more than 400 then call 911 and come to emergency room Discharge Disposition: HOME WITH HOME HEALTH SERVICES
== END 2023-03-19 18:28 | disposition home health service (06) | DRG 194 ==
LOC: EC 13:47 → OBSVTOIN 16:43 → 4SSUR 16:43
PROVIDERS: ADMIT Internal Medicine; ATTEND Internal Medicine
PROC: 05HF33Z Insertion of Infusion Device into Left Cephalic Vein, Percutaneous Approach (ICD-10-PCS; principal; 2023-03-17 16:00)
DX: J10.1 Influenza due to other identified influenza virus with other respiratory manifestations (principal); N17.9 Acute kidney failure, unspecified; N39.0 Urinary tract infection, site not specified; Z68.41 Body mass index [BMI] 40.0-44.9, adult; R78.81 Bacteremia; B96.20 Unspecified Escherichia coli [E. coli] as the cause of diseases classified elsewhere; R32 Unspecified urinary incontinence; M06.9 Rheumatoid arthritis, unspecified; I13.10 Hypertensive heart and chronic kidney disease without heart failure, with stage 1 through stage 4 chronic kidney disease, or unspecified chronic kidney disease; F32.A Depression, unspecified; E78.5 Hyperlipidemia, unspecified; K21.9 Gastro-esophageal reflux disease without esophagitis; E66.9 Obesity, unspecified; E11.22 Type 2 diabetes mellitus with diabetic chronic kidney disease; N18.30 Chronic kidney disease, stage 3 unspecified; Z11.52 Encounter for screening for COVID-19; Z86.73 Personal history of transient ischemic attack (TIA), and cerebral infarction without residual deficits; Z79.899 Other long term (current) drug therapy; Z79.82 Long term (current) use of aspirin; Z79.4 Long term (current) use of insulin; Z88.6 Allergy status to analgesic agent
CPT/HCPCS: 36410; 36415; 51702; 71046; 76770; 76937; 80048; 80053; 81001; 83036; 83605; 83735; 84484; 85025; 85610; 85730; 86140; 87040; 87077; 87086; 87186; 87636; 93005; 94640; 94760; 96365; 96375; 99285

== ENCOUNTER 2023-08-04 12:25 | Inpatient (IN) | payer MEDICARE ==
[2023-08-04 13:26] LABS: Glucose,Whole Blood 187 mg/dL (70-110)
--- NOTE | 2023-08-04 13:41 | ED ---
General Adult HPI - General Chief complaint: Weakness Stated complaint: Fuad leg swelling Time Seen by Provider: 08/04/23 13:08 Source: patient Mode of arrival: wheelchair Limitations: no limitations - History of Present Illness Initial comments: Dictation was produced using On[employer] dictation software. please excuse any grammatical, word or spelling errors. Chief Complaint: 68-year-old female presents to the emergency department for altered mental status and generalized weakness History of Present Illness: 68-year-old female presents to the emergency department for confusion and generalized weakness. History of present illness obtained also from at the bedside states that last night she seemed a little weak. This morning she needed significant assistance with going to the bathroom. states that this is generally what happens when she gets a UTI. Patient denies any numbness tingling weakness to the arms or legs focally. Denies any headache. Patient denies any chest or abdominal pain. The ROS documented in this emergency department record has been reviewed and confirmed by me. Those systems with pertinent positive or negative responses have been documented in the HPI. All other systems are other negative and/or n oncontributory. - Related Data Home Medications Medication Instructions Recorded Confirmed DULoxetine HCL [Cymbalta] 60 mg PO BID 09/30/13 08/04/23 calcitrioL 0.5 mcg PO DAILY 09/30/13 08/04/23 Topiramate [Topamax] 25 mg PO BID 07/06/16 08/04/23 Atorvastatin [Lipitor] 40 mg PO DAILY 01/06/17 08/04/23 carvediloL [Coreg*] 12.5 mg PO BID 04/06/18 08/04/23 INSULIN ASPART (NovoLOG) [NovoLOG 14 unit SQ AC-TID 09/29/19 08/04/23 (formulary)] Pregabalin [Lyrica] 75 mg PO TID 09/29/19 08/04/23 amLODIPine [Norvasc] 10 mg PO DAILY 09/29/19 08/04/23 Aspirin EC [Ecotrin Low Dose] 81 mg PO DAILY 07/01/21 08/04/23 Insulin Glargine,Hum.rec.anlog 30 unit SQ HS 07/01/21 08/04/23 [Lantus Solostar Pen] Nystatin [Nystop] 1 applic TOPICAL BID PRN 07/01/21 08/04/23 HYDROcodone/APAP 5-325MG [[place] 1 tab PO TID PRN 03/14/23 08/04/23 5-325] Silver Sulfadiazine [Silver 1 applic TOPICAL BID PRN 03/14/23 08/04/23 Sulfadiazine 1%] Ascorbic Acid [Vitamin C] 500 mg PO DAILY 08/04/23 08/04/23 Furosemide [Lasix] 20 mg PO BID PRN 08/04/23 08/04/23 INSULIN ASPART (NovoLOG) [NovoLOG See Protocol SQ AC-TID PRN 08/04/23 08/04/23 (formulary)] Omeprazole 20 mg PO DAILY 08/04/23 08/04/23 Zinc Gluconate [Zinc] 25 mg PO DAILY 08/04/23 08/04/23 Allergies Allergy/AdvReac Type Severity Reaction Status Date / Time NSAIDS (Non-Steroidal Allergy Unknown Verified 08/04/23 14:18 Anti-Inflamma Review of Systems ROS Statement: Those systems with pertinent positive or pertinent negative responses have been documented in the HPI. ROS Other: All systems not noted in ROS Statement are negative. Past Medical History Past Medical History: CVA/TIA, Diabetes Mellitus, GERD/Reflux, Hyperlipidemia, Hypertension, Renal Disease, Rheumatoid Arthritis (RA), Sleep Apnea/CPAP/BIPAP Additional Past Medical History / Comment(s): CKD stage 3, broken Lt foot 2011- no sx, stroke 2004 affected non dominant lt side . lt side weaker than rt", vertigo, neck pain, mini stroke nov 2016. EARL and she has not used CPAP, RA, HTN, GERD, DM2 , right big toe ulcer. 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 Date of last positivie culture/infection: 09/27/20 MDRO Source:: LEG MRSA Past Surgical History: Breast Surgery, Cholecystectomy Additional Past Surgical History / Comment(s): breast biopsy, gastric sleeve 11/07/14, colonoscopy 04/14/14, bilateral cataract surgery Past Anesthesia/Blood Transfusion Reactions: Motion Sickness Past Psychological History: Depression Smoking Status: Never smoker Past Alcohol Use History: None Reported Past Drug Use History: None Reported - Past Family History Mother Family Medical History: Diabetes Mellitus Additional Family Medical History / Comment(s): heart attack, Brother of lung cancer 04/19/14 Father Family Medical History: Cancer Additional Family Medical History / Comment(s): lung cancer Brother(s) Family Medical History: Cancer Additional Family Medical History / Comment(s): LUNG General Exam - General Exam Comments Initial Comments: PHYSICAL EXAM: General Impression: Alert and oriented x3, not in acute distress HEENT: Normocephalic atraumatic, extra-ocular movements intact, pupils equal and reactive to light bilaterally, mucous membranes moist. Cardiovascular: Heart regular rate and rhythm Chest: Able to complete full sentences, no retractions, no tachypnea Abdomen: abdomen soft, non-tender, non-distended, no organomegaly Musculoskeletal: Pulses present and equal in all extremities, no peripheral edema Motor: no focal deficits noted Neurological: CN II-XII grossly intact, no focal motor or sensory deficits noted Skin: Intact with no visualized rashes Psych: Normal affect and mood Limitations: no limitations Course Vital Signs 08/04/23 08/04/23 12:27 14:35 Temperature 98 F Pulse Rate 97 97 Respiratory 18 18 Rate Blood Pressure 121/75 148/77 O2 Sat by Pulse 97 91 L Oximetry Medical Decision Making - Medical Decision Making Was pt. sent in by a medical professional or institution (, PA, JET INSPECTOR, urgent care, hospital, or snf...) When possible be specific @ -No Did you speak to anyone other than the patient for history (EMS, parent, family, police, friend...)? What history was obtained from this source @ -, as described above Did you review nursing and triage notes (agree or disagree)? Why? @ -I reviewed and agree with nursing and triage notes Were old charts reviewed (outside hosp., previous admission, EMS record, old EKG, old radiological studies, urgent care reports/EKG's, snf records)? Report findings @ -No old charts were reviewed Differential Diagnosis (chest pain, altered mental status, abdominal pain women, abdominal pain men, vaginal bleeding, musculoskeletal, weakness, fever, dyspnea, syncope, headache, dizziness, GI bleed, back pain, seizure, CVA, palpatations, mental health)? @ -Differential Altered Mental Status: Hypoglycemia, DKA, hypercapnia, ETOH, overdose, CO poisoning, trauma, myxedema coma, HTN encephalopathy, infection, encephalitis, psychosis, intercranial hemorrhage, hepatic encephalopathy, meningitis, CVA, this is not meant to be an all-inclusive list EKG interpreted by me (3pts min.). @ -My EKG interpretation: Ventricular rate 95, sinus rhythm,. 145, QRS 106, QTc 426. No HI prolongation, no QTC prolongation, no ST or T-wave changes noted. EKG compared to March 14, 2023 showing no changes. Overall, this EKG is unremarkable X-rays interpreted by me (1pt min.). @ -[Chest x-ray is nonacute CT interpreted by me (1pt min.). @ -CT scan the brain shows no acute processes. U/S interpreted by me (1pt. min.). @ -None done What testing was considered but not performed or refused? (CT, X-rays, U/S, labs)? Why? @ -None What meds were considered but not given or refused? Why? @ -None Was smoking cessation discussed for >3mins.? @ -No Were there social determinants of health that impacted care today? How? (Homelessness, low income, unemployed, alcoholism, drug addiction, transportation, low edu. Level, literacy, decrease access to med. care, fdc, rehab)? @ -No Was there de-escalation of care discussed even if they declined (Discuss DNR or withdrawal of care, Hospice)? DNR status @ -No What co-morbidities impacted this encounter? (DM, HTN, Smoking, COPD, CAD, Cancer, CVA, ARF, Chemo, Hep., AIDS, mental health diagnosis, sleep apnea, morbid obesity)? @ -None Was patient admitted / discharged? Hospital course, mention meds given and route, prescriptions, significant lab abnormalities, going to OR and other pertinent info. @ -68-year-old female presents to the emergency department for altered mental status and generalized weakness. She reviews performed showing that patient has history of bacteremia along with UTI. Vital signs are stable. Laboratory evaluation obtained. Leukocytosis 28.2. Metabolic panel is within acceptable limits. Lactic acidosis 2.6. Imaging studies are negative. Pending urine studies. Clinical presentation concerning for SIRS. Urinalysis pending. I did evaluate the urine grossly did not appear to be significantly cloudy. Patient started on broad-spectrum antibiotics. Will be admitted consultation to infectious disease. Time of infection diagnosis approximately 3:30 PM Did you discuss the management of the patient with other professionals (professionals i.e. , PA, JET INSPECTOR, lab, RT, psych nurse, adoption social worker, mail carrier and clerk, teacher, campus police officer, welfare case worker)? Give summary @ -Case discussed with Dr. Crawford for admission Was critical care preformed (if so, how long)? @ -No Undiagnosed new problem with uncertain prognosis? @ -No Drug Therapy requiring intensive monitoring for toxicity (Heparin, Nitro, Insulin, Cardizem)? @ -No Were any procedures done? @ -No Diagnosis/symptom? Acute, or Chronic, or Acute on Chronic? Uncomplicated (without systemic symptoms) or Complicated (systemic symptoms)? @ -SIRS Side effects of treatment? @ -No Exacerbation, Progression, or Severe Exacerbation? @ -No Poses a threat to life or bodily function? How? (Chest pain, USA, MD, pneumonia, PE, COPD, DKA, ARF, appy, cholecystitis, CVA, Diverticulitis, Homicidal, Suicidal, threat to staff... and all critical care pts) @ -Yes - Lab Data Result diagrams: 08/04/23 12:56 08/04/23 12:56 Lab Results 08/04/23 08/04/23 08/04/23 Range/Units 12:56 12:56 12:56 WBC 28.2 H (3.8-10.6) k/uL RBC 4.10 (3.80-5.40) m/uL Hgb 11.9 (11.4-16.0) gm/dL Hct 39.4 (34.0-46.0) % MCV 96.2 (80.0-100.0) fL MCH 29.0 (25.0-35.0) pg MCHC 30.1 L (31.0-37.0) g/dL RDW 15.5 (11.5-15.5) % Plt Count 279 (150-450) k/uL MPV 8.6 Neutrophils % 93 % Lymphocytes % 2 % Monocytes % 4 % Eosinophils % 0 % Basophils % 0 % Neutrophils # 26.2 H (1.3-7.7) k/uL Lymphocytes # 0.6 L (1.0-4.8) k/uL Monocytes # 1.1 H (0-1.0) k/uL Eosinophils # 0.1 (0-0.7) k/uL Basophils # 0.0 (0-0.2) k/uL Manual Slide Review Performed Hypochromasia Moderate Sodium 136 L (137-145) mmol/L Potassium 4.9 (3.5-5.1) mmol/L Chloride 103 (98-107) mmol/L Carbon Dioxide 25 (22-30) mmol/L Anion Gap 8 mmol/L BUN 28 H (7-17) mg/dL Creatinine 1.49 H (0.52-1.04) mg/dL Est GFR (CKD-EPI)AfAm 41 (>60 ml/min/1.73 sqM) Est GFR (CKD-EPI)NonAf 36 (>60 ml/min/1.73 sqM) Glucose 190 H (74-99) mg/dL POC Glucose (mg/dL) (70-110) mg/dL POC Glu Digital Sales Assistant ID Plasma Lactic Acid Flex (0.7-2.0) mmol/L Calcium 9.4 (8.4-10.2) mg/dL Magnesium 1.8 (1.6-2.3) mg/dL Total Bilirubin 1.0 (0.2-1.3) mg/dL AST 30 (14-36) U/L ALT 14 (4-34) U/L Alkaline Phosphatase 103 (38-126) U/L Total Protein 7.3 (6.3-8.2) g/dL Albumin 3.9 (3.5-5.0) g/dL Urine Color Light Yellow Urine Appearance Cloudy H (Clear) Urine pH 6.0 (5.0-8.0) Ur Specific [place] 1.012 (1.001-1.035) Urine Protein 1+ H (Negative) Urine Glucose (UA) Negative (Negative) Urine Ketones Negative (Negative) Urine Blood Negative (Negative) Urine Nitrite Negative (Negative) Urine Bilirubin Negative (Negative) Urine Urobilinogen <2.0 (<2.0) mg/dL Ur Leukocyte Esterase Trace H (Negative) Urine WBC 8 H (0-5) /hpf Ur Squamous Epith Cells 6 H (0-4) /hpf Urine Bacteria Rare H (None) /hpf Hyaline Casts 11 H (0-2) /lpf 08/04/23 08/04/23 Range/Units 12:56 13:25 WBC (3.8-10.6) k/uL RBC (3.80-5.40) m/uL Hgb (11.4-16.0) gm/dL Hct (34.0-46.0) % MCV (80.0-100.0) fL MCH (25.0-35.0) pg MCHC (31.0-37.0) g/dL RDW (11.5-15.5) % Plt Count (150-450) k/uL MPV Neutrophils % % Lymphocytes % % Monocytes % % Eosinophils % % Basophils % % Neutrophils # (1.3-7.7) k/uL Lymphocytes # (1.0-4.8) k/uL Monocytes # (0-1.0) k/uL Eosinophils # (0-0.7) k/uL Basophils # (0-0.2) k/uL Manual Slide Review Hypochromasia Sodium (137-145) mmol/L Potassium (3.5-5.1) mmol/L Chloride (98-107) mmol/L Carbon Dioxide (22-30) mmol/L Anion Gap mmol/L BUN (7-17) mg/dL Creatinine (0.52-1.04) mg/dL Est GFR (CKD-EPI)AfAm (>60 ml/min/1.73 sqM) Est GFR (CKD-EPI)NonAf (>60 ml/min/1.73 sqM) Glucose (74-99) mg/dL POC Glucose (mg/dL) 187 H (70-110) mg/dL POC Glu Digital Sales Assistant ID Watson, Dennisia Plasma Lactic Acid Flex 2.6 H* (0.7-2.0) mmol/L Calcium (8.4-10.2) mg/dL Magnesium (1.6-2.3) mg/dL Total Bilirubin (0.2-1.3) mg/dL AST (14-36) U/L ALT (4-34) U/L Alkaline Phosphatase (38-126) U/L Total Protein (6.3-8.2) g/dL Albumin (3.5-5.0) g/dL Urine Color Urine Appearance (Clear) Urine pH (5.0-8.0) Ur Specific [place] (1.001-1.035) Urine Protein (Negative) Urine Glucose (UA) (Negative) Urine Ketones (Negative) Urine Blood (Negative) Urine Nitrite (Negative) Urine Bilirubin (Negative) Urine Urobilinogen (<2.0) mg/dL Ur Leukocyte Esterase (Negative) Urine WBC (0-5) /hpf Ur Squamous Epith Cells (0-4) /hpf Urine Bacteria (None) /hpf Hyaline Casts (0-2) /lpf Disposition Clinical Impression: SIRS (systemic inflammatory response syndrome) Disposition: ADMITTED IP TO THIS HOSP Condition: Fair Referrals: Mere Rodriguez DO [Primary Care Provider] - 1-2 days Decision Time: 15:07
[2023-08-04 13:57] LABS: ALT 14 U/L (4-34); African American GFR (CKD) 41 (>60 ml/min/1.73 sqM); Albumin 3.9 g/dL (3.5-5.0); Anion Gap 8 mmol/L; Blood Urea Nitrogen 28 mg/dL (7-17); Calcium 9.4 mg/dL (8.4-10.2); Carbon Dioxide 25 mmol/L (22-30); Chloride 103 mmol/L (98-107); Glucose 190 mg/dL (74-99); Non-African American GFR(CKD) 36 (>60 ml/min/1.73 sqM); Sodium 136 mmol/L (137-145); Total Protein 7.3 g/dL (6.3-8.2)
[2023-08-04 14:05] LABS: Basophils % (A) 0 %; Eosinophils # (A) 0.1 k/uL (0-0.7); Eosinophils % (A) 0 %; HCT 39.4 % (34.0-46.0); HGB 11.9 gm/dL (11.4-16.0); Hypochromasia Moderate; Lymphocytes # (A) 0.6 k/uL (1.0-4.8); Lymphocytes % (A) 2 %; MCHC 30.1 g/dL (31.0-37.0); MCV 96.2 fL (80.0-100.0); Mean Platelet Volume 8.6; Monocytes # (A) 1.1 k/uL (0-1.0); Monocytes % (A) 4 %; Neutrophils # (A) 26.2 k/uL (1.3-7.7); Neutrophils % (A) 93 %; Platelet Count 279 k/uL (150-450); RDW 15.5 % (11.5-15.5); WBC 28.2 k/uL (3.8-10.6)
[2023-08-04 14:06] LABS: AST 30 U/L (14-36); Alkaline Phosphatase 103 U/L (38-126); Magnesium 1.8 mg/dL (1.6-2.3); Potassium 4.9 mmol/L (3.5-5.1)
--- NOTE | 2023-08-04 14:11 | CT ---
EXAMINATION TYPE: CT brain wo con DATE OF EXAM: 08/04/2023 COMPARISON: 02/23/2022 HISTORY: altered mental status CT DLP: 1154.[address] of the brain was performed. The ventricles, basal cisterns and sulci overlying the cerebral convexities demonstrate mild enlargem ent. Lacunar infarct right basal ganglia. There is no evidence for intracranial hemorrhage or sulcal effacement. There is decreased attenuation about the periventricular white matter and deep white matter of both c erebral hemispheres, compatible with chronic small vessel ischemia. Differential diagnosis does inclu de demyelination. No mass effects are seen.No midline shift. Osseous calvarium is intact. If symptoms persist consider MRI. IMPRESSION: 1. Age related atrophic and chronic small vessel ischemic change without acute intracranial process s een at this time.
--- NOTE | 2023-08-04 14:29 | XR ---
EXAMINATION TYPE: XR chest 2V DATE OF EXAM: 08/04/2023 COMPARISON: 03/14/2023 HISTORY: 68-year-old female with weakness TECHNIQUE: AP and lateral views FINDINGS: Low lung volumes and crowded vascular markings. Interstitial prominence. Heart upper limits of normal in size. No flako consolidation or pleural effusion. IMPRESSION: Hypoventilatory changes along with possible pulmonary vascular congestion. Clinically correlate.
[2023-08-04] MEDS ORDERED: VANCOMYCIN IV PER PHARMACY 1 EACH MISC MISCELLANE PRN (14:57)
[2023-08-04 15:20] LABS: Appearance,Urine Cloudy (Clear); Bacteria,Urine Rare /hpf; Bilirubin,Urine Negative (Negative); Blood,Urine Negative (Negative); Color,Urine Light Yellow; Glucose,Urine (UA) Negative (Negative); Hyaline Casts,Urine 11 /lpf (0-2); Ketones,Urine Negative (Negative); Leukocyte Esterase,Urine Trace (Negative); Nitrite,Urine Negative (Negative); Protein,Urine 1+ (Negative); Specific Gravity,Urine 1.012 (1.001-1.035); Squamous Epithelial Cell,Urine 6 /hpf (0-4); Urobilinogen,Urine <2.0 mg/dL (<2.0); WBC,Urine 8 /hpf (0-5)
[2023-08-04] MEDS: HYDROcodone/APAP 5-325MG 1 EACH TAB PO STA (16:22)
[2023-08-04] MEDS: PIPERACILLIN-TAZOBACTAM 3.375 GM in SODIUM CHLORIDE 0.9% 100 ML IVPB SCH (16:27)
[2023-08-04] MEDS ORDERED: INSULIN ASPART (NovoLOG) 100 UNIT/ML VIAL SQ PRN (18:49)
[2023-08-04] MEDS ORDERED: NYSTATIN 100,000 UNIT/GM POWD 15 GM TOPICAL PRN (18:49)
[2023-08-04] MEDS ORDERED: DEXTROSE 50% SYRINGE 50 ML IVP PRN ×2 (18:52)
[2023-08-04] MEDS: ACETAMINOPHEN TAB 325 MG TAB PO PRN (19:27)
[2023-08-04 20:25] LABS: Glucose,Whole Blood 193 mg/dL (70-110)
[2023-08-04] MEDS: DULoxetine HCL 60 MG CAPSULE.DR PO SCH (20:43)
[2023-08-04] MEDS: TOPIRAMATE 25 MG TAB PO SCH (20:43)
[2023-08-04] MEDS: INSULIN DETEMIR (LEVEMIR) 100 UNIT/ML SYR SQ SCH (20:44)
[2023-08-04] MEDS: VANCOMYCIN 2,000 MG in SODIUM CHLORIDE 0.9% 500 ML 500 ML IVPB ONE (20:55)
--- NOTE | 2023-08-04 21:54 | HP ---
HISTORY AND PHYSICAL CHIEF COMPLAINT: Weakness and bilateral leg swelling. HISTORY OF PRESENT ILLNESS: This is a 68-year-old woman with a past medical history of multiple medical problems including diabetes mellitus, CVA, has had infections with UTI treated. The family noted the patient is having increasing weakness and bilateral leg swelling, and the patient came to [facility] and admitted for further evaluation and treatment. There is no history of any fever, rigors, chills at this time. The patient has been to rehab before. PAST MEDICAL HISTORY: Reviewed and include diabetes mellitus. Rest of the history and rest of the chart also reviewed. HOME MEDICATIONS: Reviewed and include dose and rest of the medications reviewed. ALLERGIES: NSAIDs. FAMILY HISTORY: History of diabetes mellitus. SOCIAL HISTORY: No history of smoking or alcohol. REVIEW OF SYSTEMS: A 14-point review is negative except as mentioned earlier. PHYSICAL EXAMINATION: VITAL SIGNS: Pulse is 97, blood pressure 140/70, respirations 18. HEENT: Conjunctivae normal. CARDIOVASCULAR: No jugular venous distention. RESPIRATIONS: Scattered rhonchi. ABDOMEN: Soft, obese. LEGS: Bilateral leg edema. NERVOUS SYSTEM: Diffusely weak. SKIN: No rash. JOINTS: No active deforming arthropathy. LABORATORY DATA: WBC 28.2. Lactic acid 2.6. ASSESSMENT: 1. Possible weakness, possible urinary tract infection with failure of outpatient treatment. 2. Acute on chronic renal failure with dehydration. 3. Elevated WBC. 4. Diabetes mellitus type 2. 5. Hypertension. 6. Hyperlipidemia. 7. History of rheumatoid arthritis. 8. Gait dysfunction. RECOMMENDATIONS AND DISCUSSION: This 68-year-old woman presented with multiple complex medical issues. We will monitor the patient closely. I would recommend to continue current management. Broad- spectrum IV antibiotics initiated. Consult Infectious Disease. Cultures. PT/OT evaluation. Possible ECF rehab. Resume the home medications once they are confirmed. Prognosis guarded. Further recommendations to follow. See orders for details. MMODL / IJN: [id number] / MTDD
[2023-08-04] MEDS: HYDROcodone/APAP 5-325MG 1 EACH TAB PO PRN (22:03)
[2023-08-04] MEDS: PREGABALIN 75 MG CAP PO SCH (22:04)
[2023-08-04 23:16] LABS: Glucose,Whole Blood 227 mg/dL (70-110)
[2023-08-05 06:19] LABS: Glucose,Whole Blood 96 mg/dL (70-110)
[2023-08-05] MEDS: carvediloL 12.5 MG TAB PO SCH (06:20)
[2023-08-05] MEDS: PANTOPRAZOLE 40 MG TABLET PO SCH (06:20)
[2023-08-05 07:44] LABS: Glucose,Whole Blood 79 mg/dL (70-110)
[2023-08-05] MEDS: INSULIN ASPART (NovoLOG) 100 UNIT/ML VIAL SQ SCH (07:45)
[2023-08-05 08:01] LABS: African American GFR (CKD) 46 (>60 ml/min/1.73 sqM); Non-African American GFR(CKD) 40 (>60 ml/min/1.73 sqM)
[2023-08-05 08:09] LABS: Glucose,Whole Blood 149 mg/dL (70-110)
[2023-08-05] MEDS: ASCORBIC ACID 500 MG TAB PO SCH (09:57)
[2023-08-05] MEDS: ZINC SULFATE 220 MG CAP PO SCH (09:57)
[2023-08-05] MEDS: ATORVASTATIN 40 MG TAB PO SCH (09:57)
[2023-08-05] MEDS: amLODIPine 10 MG TAB PO SCH (09:57)
[2023-08-05] MEDS: ASPIRIN 81 MG PO SCH (09:57)
[2023-08-05 11:53] LABS: Glucose,Whole Blood 162 mg/dL (70-110)
[2023-08-05] MEDS ORDERED: IOPAMIDOL CONTRAST (ORAL USE) VIAL PO PRN (13:36)
--- NOTE | 2023-08-05 16:03 | CT ---
EXAMINATION TYPE: CT abdomen pelvis wo con DATE OF EXAM: 08/05/2023 COMPARISON: 11/23/2019 HISTORY: 68-year-old female recurrent uti/sepsis CT DLP: 1503.2 mGycm. Automated exposure control for dose reduction was used. TECHNIQUE: Contiguous axial scanning of the abdomen and pelvis without IV contrast. Coronal and sagit susan reconstructions performed. FINDINGS: Heart upper limits of normal in size without pericardial effusion. RCA coronary calcifications. Dense mitral annular calcifications noted. Suspect chronic reticular interstitial scarring at the lower lungs, progressed from 2019. No pleural effusion. There is a moderate-sized hiatal hernia. Post surgical change of sleeve gastrectomy. Noncontrast appearance of the liver, adrenal glands, kidneys, spleen, and atrophic pancreas show no g ross abnormality. No dilated small bowel, free fluid, or free air. No mesenteric or retroperitoneal lymphadenopathy. Overall moderate stool burden. Mildly redundant sigmoid colon. No pericolonic inflammatory change. Bladder urine distended. Uterus anteverted. Both ovaries are visualized. No abnormal fluid collection in the pelvis. Asymmetrically enlarged right inguinal lymph nodes measuring up to 2.1 cm. Clinical correlation. Bones: Mild degenerative change of the hips. Moderate spondylotic change throughout the lumbar spine. No osseous destructive process. IMPRESSION: 1. Redemonstrated moderate-sized hiatal hernia. The patient is status post sleeve gastrectomy. 2. Asymmetrically enlarged right inguinal lymph nodes measuring up to 2.1 cm. Clinically correlate f or any potential upstream infectious/inflammatory process. Clinical and possibly ultrasound follow-up to ensure stability/involution.
[2023-08-05] MEDS: VANCOMYCIN 2,500 MG in SODIUM CHLORIDE 0.9% 500 ML 500 ML IVPB SCH (16:05)
[2023-08-05 18:01] LABS: Glucose,Whole Blood 176 mg/dL (70-110)
[2023-08-05] MEDS: INSULIN ASPART (NovoLOG) 100 UNIT/ML VIAL SQ PRN (18:26)
[2023-08-05] MEDS ORDERED: VANCOMYCIN 2,000 MG in SODIUM CHLORIDE 0.9% 500 ML 500 ML IVPB SCH (21:00)
[2023-08-05 21:06] LABS: Glucose,Whole Blood 285 mg/dL (70-110)
--- NOTE | 2023-08-05 22:18 | P.CONS ---
History of Present Illness - Reason for Consult Consult date: 08/05/23 Urinary tract infection Requesting physician: Ruth Theodore - Chief Complaint Weakness and mental status changes x 1 day - History of Present Illness Patient is a 68-year-old female with a past medical history significant for diabetes mellitus CVA TIA hypertension hyperlipidemia rheumatoid arthritis right lower extremity lymphedema history of recurrent UTI and cellulitis patient has been brought into the hospital for evaluation of confusion and generalized weakness apparently patient noticed to be slightly weak and not herself for the last day or 2 in the morning of presentation to the hospital the patient needed significant assistance with going to the bathroom no clear history of any fever he did have some chills denies any headache or URI symptoms no nausea no vomiting no abdominal pain or any diarrhea did have swelling to his lower extremity but no worsening redness or any pain with the symptoms the patient was evaluated on presentation to the hospital the patient was afebrile no fever have recorded subsequently patient was not tachycardic h ypotensive or hypoxic patient did have a white count of 28.2 with a left shift creatinine was 1.49 liver enzymes are normal urine has been mildly positive blood culture BMs are currently pending patient did have a chest x-ray hypoventilatory changes along with a pulm vascular congestion patient was started on vancomycin and Zosyn infectious disease was consulted for further management of antibiotic therapy Review of Systems Positive point and negatives has been mentioned in the HPI, complete review of systems was performed and all other systems are negative Past Medical History Past Medical History: CVA/TIA, Diabetes Mellitus, GERD/Reflux, Hyperlipidemia, Hypertension, Renal Disease, Rheumatoid Arthritis (RA), Sleep Apnea/CPAP/BIPAP Additional Past Medical History / Comment(s): CKD stage 3, broken Lt foot 2011- no sx, stroke 2004 affected non dominant lt side . lt side weaker than rt", vertigo, neck pain, mini stroke nov 2016. EAR[facility] and she has not used CPAP, RA, HTN, GERD, DM2 , right big toe ulcer. 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 2 adult children. No tobacco or alcohol use. No experience. No international travel. Pet cats at home they are not new. Used to work in a care of handicapped persons Smoking Status: Never smoker Past Alcohol Use History: None Reported Past Drug Use History: None Reported - Past Family History Mother Family Medical History: Diabetes Mellitus Additional Family Medical History / Comment(s): heart attack, Brother of lung cancer 04/19/14 Father Family Medical History: Cancer Additional Family Medical History / Comment(s): lung cancer Brother(s) Family Medical History: Cancer Additional Family Medical History / Comment(s): LUNG Medications and Allergies Home Medications Medication Instructions Recorded Confirmed Type DULoxetine HCL [Cymbalta] 60 mg PO BID 09/30/13 08/04/23 History calcitrioL 0.5 mcg PO DAILY 09/30/13 08/04/23 History Topiramate [Topamax] 25 mg PO BID 07/06/16 08/04/23 History Atorvastatin [Lipitor] 40 mg PO DAILY 01/06/17 08/04/23 History carvediloL [Coreg*] 12.5 mg PO BID 04/06/18 08/04/23 History INSULIN ASPART (NovoLOG) [NovoLOG 14 unit SQ AC-TID 09/29/19 08/04/23 History (formulary)] Pregabalin [Lyrica] 75 mg PO TID 09/29/19 08/04/23 History amLODIPine [Norvasc] 10 mg PO DAILY 09/29/19 08/04/23 History Aspirin EC [Ecotrin Low Dose] 81 mg PO DAILY 07/01/21 08/04/23 History Insulin Glargine,Hum.rec.anlog 30 unit SQ HS 07/01/21 08/04/23 History [Lantus Solostar Pen] Nystatin [Nystop] 1 applic TOPICAL BID PRN 07/01/21 08/04/23 History HYDROcodone/APAP 5-325MG [[place] 1 tab PO TID PRN 03/14/23 08/04/23 History 5-325] Silver Sulfadiazine [Silver 1 applic TOPICAL BID PRN 03/14/23 08/04/23 History Sulfadiazine 1%] Ascorbic Acid [Vitamin C] 500 mg PO DAILY 08/04/23 08/04/23 History Furosemide [Lasix] 20 mg PO BID PRN 08/04/23 08/04/23 History INSULIN ASPART (NovoLOG) [NovoLOG See Protocol SQ AC-TID PRN 08/04/23 08/04/23 History (formulary)] Omeprazole 20 mg PO DAILY 08/04/23 08/04/23 History Zinc Gluconate [Zinc] 25 mg PO DAILY 08/04/23 08/04/23 History Acetaminophen Tab [Tylenol] 650 mg PO Q6HR PRN tab 08/08/23 Rx Cephalexin [Keflex] 500 mg PO Q8HR 7 Days #21 cap 08/08/23 Rx Folic Acid 1 mg PO DAILY #30 tab 08/08/23 Rx Thiamine [Vitamin B-1] 100 mg PO DAILY #30 tab 08/08/23 Rx Allergies Allergy/AdvReac Type Severity Reaction Status Date / Time NSAIDS (Non-Steroidal Allergy Unknown Verified 08/04/23 14:18 Anti-Inflamma Physical Exam Vitals: Vital Signs Temp Pulse Pulse Resp BP BP Pulse Ox 08/05/23 08:00 98.0 F 80 17 123/73 96 08/05/23 02:00 85 19 08/05/23 00:12 98.5 F 85 17 147/74 96 08/04/23 23:20 98.1 F 88 20 129/60 94 L 08/04/23 21:11 86 20 130/59 97 08/04/23 18:51 92 18 149/60 98 08/04/23 17:03 89 18 134/72 96 08/04/23 14:35 97 18 148/77 91 L 08/04/23 12:27 98 F 97 18 121/75 97 Intake and Output 08/04/23 08/05/23 08/05/23 22:59 06:59 14:59 Output Total 700 Balance -700 Output: Urine 700 Other: Voiding Method External Catheter External Catheter # Voids 1 Weight 140.614 kg GENERAL DESCRIPTION: Elderly female lying in bed, no distress. No tachypnea or accessory muscle of respiration use. HEENT: Shows Pallor , no scleral icterus. Oral mucous membrane is dry. No pharyngeal erythema or thrush NECK: Trachea central, no thyromegaly. LUNGS: Unlabored breathing. Clear to auscultation anteriorly. No wheeze or crackle. HEART: S1, S2, regular rate and rhythm. No loud murmur ABDOMEN: Soft, no tenderness , guarding or rigidity, no organomegaly EXTREMITIES: Diffuse swelling to the right lower extremity slightly warm no open wound or drainage SKIN: No rash, no masses palpable. NEUROLOGICAL: The patient is awake, alert, oriented x2, mood and affect normal. Results CBC & Chem 7: 08/07/23 03:53 08/07/23 03:53 Labs: Abnormal Lab Results - Last 24 Hours (Table) 08/04/23 08/04/23 08/04/23 Range/Units 12:56 12:56 12:56 WBC 28.2 H (3.8-10.6) k/uL MCHC 30.1 L (31.0-37.0) g/dL Neutrophils # 26.2 H (1.3-7.7) k/uL Lymphocytes # 0.6 L (1.0-4.8) k/uL Monocytes # 1.1 H (0-1.0) k/uL Sodium 136 L (137-145) mmol/L BUN 28 H (7-17) mg/dL Creatinine 1.49 H (0.52-1.04) mg/dL Glucose 190 H (74-99) mg/dL POC Glucose (mg/dL) (70-110) mg/dL Hemoglobin A1c (<=6.0) % Plasma Lactic Acid Flex (0.7-2.0) mmol/L Urine Appearance Cloudy H (Clear) Urine Protein 1+ H (Negative) Ur Leukocyte Esterase Trace H (Negative) Urine WBC 8 H (0-5) /hpf Ur Squamous Epith Cells 6 H (0-4) /hpf Urine Bacteria Rare H (None) /hpf Hyaline Casts 11 H (0-2) /lpf 08/04/23 08/04/23 08/04/23 Range/Units 12:56 13:25 20:23 WBC (3.8-10.6) k/uL MCHC (31.0-37.0) g/dL Neutrophils # (1.3-7.7) k/uL Lymphocytes # (1.0-4.8) k/uL Monocytes # (0-1.0) k/uL Sodium (137-145) mmol/L BUN (7-17) mg/dL Creatinine (0.52-1.04) mg/dL Glucose (74-99) mg/dL POC Glucose (mg/dL) 187 H 193 H (70-110) mg/dL Hemoglobin A1c (<=6.0) % Plasma Lactic Acid Flex 2.6 H* (0.7-2.0) mmol/L Urine Appearance (Clear) Urine Protein (Negative) Ur Leukocyte Esterase (Negative) Urine WBC (0-5) /hpf Ur Squamous Epith Cells (0-4) /hpf Urine Bacteria (None) /hpf Hyaline Casts (0-2) /lpf 08/04/23 08/05/23 08/05/23 Range/Units 23:14 06:51 06:51 WBC (3.8-10.6) k/uL MCHC (31.0-37.0) g/dL Neutrophils # (1.3-7.7) k/uL Lymphocytes # (1.0-4.8) k/uL Monocytes # (0-1.0) k/uL Sodium (137-145) mmol/L BUN (7-17) mg/dL Creatinine 1.37 H (0.52-1.04) mg/dL Glucose (74-99) mg/dL POC Glucose (mg/dL) 227 H (70-110) mg/dL Hemoglobin A1c 9.5 H (<=6.0) % Plasma Lactic Acid Flex (0.7-2.0) mmol/L Urine Appearance (Clear) Urine Protein (Negative) Ur Leukocyte Esterase (Negative) Urine WBC (0-5) /hpf Ur Squamous Epith Cells (0-4) /hpf Urine Bacteria (None) /hpf Hyaline Casts (0-2) /lpf 08/05/23 Range/Units 08:07 WBC (3.8-10.6) k/uL MCHC (31.0-37.0) g/dL Neutrophils # (1.3-7.7) k/uL Lymphocytes # (1.0-4.8) k/uL Monocytes # (0-1.0) k/uL Sodium (137-145) mmol/L BUN (7-17) mg/dL Creatinine (0.52-1.04) mg/dL Glucose (74-99) mg/dL POC Glucose (mg/dL) 149 H (70-110) mg/dL Hemoglobin A1c (<=6.0) % Plasma Lactic Acid Flex (0.7-2.0) mmol/L Urine Appearance (Clear) Urine Protein (Negative) Ur Leukocyte Esterase (Negative) Urine WBC (0-5) /hpf Ur Squamous Epith Cells (0-4) /hpf Urine Bacteria (None) /hpf Hyaline Casts (0-2) /lpf Assessment and Plan (1) Cellulitis of right leg Status: Acute Code(s): L03.115 - CELLULITIS OF RIGHT LOWER LIMB SNOMED Code(s): 18797097187768666 Plan: 1patient presented to the hospital with mental status changes confusion and this patient who did have elevated white count and concern for possible UTI however urine has not been significantly positive patient did have a history of lymphedema and concern for possible right lower extremity cellulitis likely contributed to her illness. 2discontinue vancomycin and Zosyn to decrease risk of nephrotoxicity 3-we will start the patient cefazolin for better coverage for the cellulitis of the right lower extremity while waiting for the culture to finalize We will follow on clinical condition and cultures to further adjust medication if needed Thank you for this consultation we will follow the patient along with you Dictation was produced using [employer] dictation software. please excuse any grammatical, word or spelling errors. Time with Patient: Greater than 30
--- NOTE | 2023-08-05 22:34 | PN ---
PROGRESS NOTE DATE OF SERVICE: 08/05/2023 This 68-year-old woman, who was admitted with weakness as well as possible UTI. She is being closely monitored at this time. The cultures are negative. After empiric antibiotics, the patient seems to be feeling better. Today's white count is not available. PHYSICAL EXAMINATION: VITAL SIGNS: Pulse 80, blood pressure 123/73, respirations 17. CHEST: Clear to auscultation. CARDIOVASCULAR: S1, S2. ABDOMEN: Soft. NERVOUS SYSTEM: Diffusely weak. LABORATORY DATA: Noted. ASSESSMENT: 1. Possible weakness with urinary tract infection with failure of outpatient treatment. 2. Elevated WBC. 3. Acute on chronic renal failure with dehydration. 4. Diabetes mellitus, type 2. 5. Hypertension. 6. Hyperlipidemia. 7. History of rheumatoid arthritis. 8. Gait dysfunction. RECOMMENDATIONS: Recommend to continue current management, continue symptomatic treatment. Otherwise, I would recommend continue with IV antibiotics. The patient is started on IV Zosyn. I would also recommend CAT scan of the abdomen and pelvis to complete the workup. The patient will require a full admit to evaluate and treat the above-mentioned medical issues, sepsis also a possibility. We will continue to monitor. See orders for further details. MMODL / IJN: [id number] /
[2023-08-06 05:50] LABS: Glucose,Whole Blood 187 mg/dL (70-110)
[2023-08-06 10:34] LABS: Basophils # (A) 0.01 X 10*3/uL (0.00-0.10); Basophils % (A) 0.2 %; Eosinophils # (A) 0.19 X 10*3/uL (0.04-0.35); Eosinophils % (A) 3.1 %; HGB 10.1 g/dL (12.0-15.0); Lymphocytes # (A) 0.73 X 10*3/uL (0.90-5.00); MCH 28.5 pg (27.0-32.0); MCHC 29.7 g/dL (32.0-37.0); MCV 95.8 FL (80.0-97.0); Mean Platelet Volume 11.2 FL (9.5-12.2); Monocytes # (A) 0.46 X 10*3/uL (0.20-1.00); Monocytes % (A) 7.6 %; NRBC Per 100 WBC 0 X 10*3/uL (0.00-0.01); Neutrophils # (A) 4.65 X 10*3/uL (1.80-7.70); Neutrophils % (A) 76.8 %; Platelet Count 198 X 10*3/uL (140-440); RBC 3.55 X 10*6/uL (4.10-5.20); RDW 15.8 % (11.5-14.5); WBC 6.06 X 10*3/uL (4.50-10.00)
[2023-08-06 10:52] LABS: BUN/Creat Ratio 19.86 Ratio (12.00-20.00); Blood Urea Nitrogen 27.8 mg/dL (9.0-27.0); Glucose 155 mg/dL (70-110)
[2023-08-06 10:53] LABS: ALT 13 U/L (8-44); AST 23 U/L (13-35); Albumin 3.3 g/dL (3.8-4.9); Albumin/Globulin Ratio 1.18 Ratio (1.60-3.17); Alkaline Phosphatase 90 U/L (41-126); Calcium 8.5 mg/dL (8.7-10.3); Carbon Dioxide 25.9 mmol/L (21.6-31.8); Chloride 104 mmol/L (96-109); Globulin 2.8 g/dL (1.6-3.3); Potassium 4.4 mmol/L (3.5-5.5); Sodium 141 mmol/L (135-145); Total Bilirubin 0.2 mg/dL (0.3-1.2); Total Protein 6.1 g/dL (6.2-8.2)
[2023-08-06 12:06] LABS: Glucose,Whole Blood 85 mg/dL (70-110)
[2023-08-06 12:18] VITALS: BMI 45.8
[2023-08-06] MEDS: MULTIVITAMINS, THERA 1 EACH TAB PO SCH (14:51)
[2023-08-06] MEDS: THIAMINE 100 MG TAB PO SCH (14:51)
[2023-08-06] MEDS: FOLIC ACID 1 MG TAB PO SCH (14:51)
--- NOTE | 2023-08-06 15:12 | P.PN ---
Subjective Progress Note Date: 08/06/23 Principal diagnosis: Reason for follow-up is right leg cellulitis and a positive blood culture Patient is a 68-year-old female with a past medical history significant for diabetes mellitus CVA TIA hypertension hyperlipidemia rheumatoid arthritis right lower extremity lymphedema history of recurrent UTI and cellulitis patient has been brought into the hospital for evaluation of confusion and generalized weakness, did have a mild positive UA with patient concern for UTI but also have a component of right leg cellulitis blood culture positive for staph epi. On today's evaluation that is 08/06/2023,the patient denies any fever or any chills, patient is breathing comfortably on room air, the patient denies chest pain shortness of breath and no significant cough, patient denies abdominal pain, no nausea vomiting or diarrhea. Patient denies any worsening pain in the right leg Patient white normalized to 6.06 creatinine is 1.4 urine culture pending blood culture with staph epi Objective - Vital Signs Vital signs: Vital Signs Temp 97.7 F 08/06/23 14:00 Pulse 66 08/06/23 14:00 Resp 16 08/06/23 14:00 BP 115/71 08/06/23 14:00 Pulse Ox 98 08/06/23 14:00 FiO2 Intake & Output 08/05/23 08/06/23 08/06/23 18:59 06:59 18:59 Intake Total 118 Balance 118 Weight 140.614 kg Intake: Oral 118 Other: Voiding Method External Catheter External Catheter External Catheter # Bowel Movements 1 - Exam GENERAL DESCRIPTION: An elderly female lying in bed in no distress RESPIRATORY SYSTEM: Unlabored breathing , decreased breath sounds at bases HEART: S1 S2 regular rate and rhythm , ABDOMEN: Soft , no tenderness EXTREMITIES: Right leg with diffuse swelling slightly warm - Labs CBC & Chem 7: 08/06/23 06:51 08/06/23 06:51 Labs: Abnormal Lab Results - Last 24 Hours (Table) 08/05/23 08/05/23 08/06/23 Range/Units 17:56 21:04 05:49 RBC (4.10-5.20) X 10*6/uL Hgb (12.0-15.0) g/dL Hct (37.2-46.3) % MCHC (32.0-37.0) g/dL RDW (11.5-14.5) % Lymphocytes # (0.90-5.00) X 10*3/uL BUN (9.0-27.0) mg/dL Est GFR (CKD-EPI) (>=60) Glucose (70-110) mg/dL POC Glucose (mg/dL) 176 H 285 H 187 H (70-110) mg/dL Calcium (8.7-10.3) mg/dL Total Bilirubin (0.3-1.2) mg/dL Total Protein (6.2-8.2) g/dL Albumin (3.8-4.9) g/dL Albumin/Globulin Ratio (1.60-3.17) Ratio 08/06/23 08/06/23 Range/Units 06:51 06:51 RBC 3.55 L (4.10-5.20) X 10*6/uL Hgb 10.1 L (12.0-15.0) g/dL Hct 34.0 L (37.2-46.3) % MCHC 29.7 L (32.0-37.0) g/dL RDW 15.8 H (11.5-14.5) % Lymphocytes # 0.73 L (0.90-5.00) X 10*3/uL BUN 27.8 H (9.0-27.0) mg/dL Est GFR (CKD-EPI) 41 L (>=60) Glucose 155 H (70-110) mg/dL POC Glucose (mg/dL) (70-110) mg/dL Calcium 8.5 L (8.7-10.3) mg/dL Total Bilirubin 0.2 L (0.3-1.2) mg/dL Total Protein 6.1 L (6.2-8.2) g/dL Albumin 3.3 L (3.8-4.9) g/dL Albumin/Globulin Ratio 1.18 L (1.60-3.17) Ratio Microbiology - Last 24 Hours (Table) 08/04/23 15:45 Blood Culture Gram Stain - Preliminary Blood Blood Culture - Preliminary Staphylococcus epidermidis Molecular ID Assessment and Plan (1) Cellulitis of right leg Current Visit: No Status: Acute Code(s): L03.115 - CELLULITIS OF RIGHT LOWER LIMB SNOMED Code(s): 81797931113242516 (2) Positive blood culture Current Visit: Yes Status: Acute Code(s): R78.81 - BACTEREMIA SNOMED Code(s): 227639813 Plan: 1patient was in the hospital with mental status changes confusion and this patient who did have elevated white count and concern for possible UTI however urine has not been significantly positive patient did have a history of lymphedema and concern for possible right lower extremity cellulitis likely contributed to her illness. 2-positive blood culture with staph epi likely skin contamination 3patient to continue with cefazolin for another 24 hours before transition to oral Keflex on discharge if the patient continues to improve Dictation was produced using [employer] dictation software. please excuse any grammatical, word or spelling errors. Time with Patient: Less than 30
[2023-08-06 17:09] LABS: Glucose,Whole Blood 175 mg/dL (70-110)
[2023-08-06 21:23] LABS: Glucose,Whole Blood 173 mg/dL (70-110)
[2023-08-07 06:18] LABS: Glucose,Whole Blood 179 mg/dL (70-110)
[2023-08-07 08:46] LABS: Basophils # (A) 0.03 X 10*3/uL (0.00-0.10); Basophils % (A) 0.6 %; Eosinophils # (A) 0.18 X 10*3/uL (0.04-0.35); Eosinophils % (A) 3.6 %; HCT 33.6 % (37.2-46.3); HGB 9.8 g/dL (12.0-15.0); Lymphocytes # (A) 1.01 X 10*3/uL (0.90-5.00); Lymphocytes % (A) 19.9 %; MCH 28.2 pg (27.0-32.0); MCHC 29.2 g/dL (32.0-37.0); MCV 96.8 FL (80.0-97.0); Mean Platelet Volume 11.7 FL (9.5-12.2); Monocytes # (A) 0.46 X 10*3/uL (0.20-1.00); Monocytes % (A) 9.1 %; NRBC Per 100 WBC 0 X 10*3/uL (0.00-0.01); Neutrophils # (A) 3.35 X 10*3/uL (1.80-7.70); Platelet Count 231 X 10*3/uL (140-440); RBC 3.47 X 10*6/uL (4.10-5.20); RDW 15.9 % (11.5-14.5); WBC 5.07 X 10*3/uL (4.50-10.00)
[2023-08-07 08:48] LABS: BUN/Creat Ratio 18.12 Ratio (12.00-20.00); Blood Urea Nitrogen 30.8 mg/dL (9.0-27.0); Calcium 8.5 mg/dL (8.7-10.3); Carbon Dioxide 23.6 mmol/L (21.6-31.8); Chloride 104 mmol/L (96-109); Glucose 209 mg/dL (70-110); Potassium 4.5 mmol/L (3.5-5.5); Sodium 140 mmol/L (135-145)
--- NOTE | 2023-08-07 09:22 | P.PN ---
Subjective Progress Note Date: 08/06/23 This is a pleasant 68-year-old female who was recently admitted with generalized weakness altered mentation as well as possible urinary tract infection. Patient is being followed by infectious disease maintained on antibiotics while waiting for cultures. Blood cultures preliminary showing molecular ID and awaiting repeat blood cultures to determine if cultures are contaminant. Patient improving on empiric antibiotics and will continue. Recommend PT/OT therapy evaluation. Continue with Sina wraps from the lower extremities and elevating while at rest. Encouraged oral intake and increased activity as tolerated Review of systems: Constitutional: No reports of fatigue, fever, or chills Cardiovascular: No reports of chest pain or palpitations Respiratory: No reports of shortness of breath or cough GI: No reports of nausea, no reports of vomiting, no diarrhea : No reports of dysuria or retention Neurovascular: reports of generalized weakness All medications have been reviewed PHYSICAL EXAMINATION: GENERAL: The patient is alert and oriented x 3, Well developed, elderly appearing, morbidly obese HEENT: Pupils are round and equally reacting to light. EOMI. no scleral icterus. No conjunctival pallor. Normocephalic, atraumatic. No pharyngeal erythema. No thyromegaly. CARDIOVASCULAR: S1 and S2 muffled PULMONARY: diminished breath sounds bilaterally with no wheezing or rhonchi noted. ABDOMEN: soft. Nontender on exam. obese. non-distended, normoactive bowel sounds. No palpable organomegaly. MUSCULOSKELETAL: No joint swelling or deformity. EXTREMITIES: No cyanosis, clubbing, or pedal edema. NEUROLOGICAL: Gross neurological examination did not reveal any focal deficits. Diffuse weakness SKIN: No rashes. Assessment: Weakness with elevated white blood count with concerns of acute urinary tract infection, present on admission with failure of outpatient treatment Acute on chronic renal failure with dehydration Diabetes mellitus, type II Hypertension Hyperlipidemia History of rheumatoid arthritis Gait dysfunction Morbid obesity with a BMI of 45.8 History of CVA/TIA Sleep apnea but does not use CPAP History of chronic kidney disease, stage III History of depression GI prophylaxis DVT prophylaxis Full code Plan: Recommend to continue with current medications and management with infectious disease following. Preliminary blood cultures showing a molecular ID and possible staff epidermidis with possible contamination and awaiting repeat cultures to finalize Patient is continued on antibiotics in the form of cefazolin and will continue showing clinical improvement Follow-up on repeat labs Continue monitoring blood sugars closely and will continue with Accu-Cheks before meals and at bedtime and sliding scale Elevate lower extremities and use Sina wraps from the toes up to the knees Recommend PT/OT therapy evaluation Will discuss further with infectious disease and await cultures to determine discharge planning. Possible discharge planning in next 24 to 48 hours Due to multiple complex medical issues, prognosis is guarded The impression and plan of care has been dictated by Ruth Theodore, nurse practitioner as directed. Dr. Ty MD I have performed a history and examination and MDM of this patient, discussed the same with the dictator, and agree with the dictator's assessment and plan as written ,documented as a scribe. Based on total visit time, I have performed more than 50% of the visit. Any additional findings or plans will be noted. Objective - Vital Signs Vital signs: Vital Signs Temp 97.8 F 08/06/23 08:00 Pulse 62 08/06/23 08:00 Resp 16 08/06/23 08:00 BP 130/72 08/06/23 08:00 Pulse Ox 96 08/06/23 08:00 FiO2 Intake & Output 08/05/23 08/06/23 08/06/23 18:59 06:59 18:59 Intake Total 118 Balance 118 Intake: Oral 118 Other: Voiding Method External Catheter External Catheter # Bowel Movements 1 - Labs CBC & Chem 7: 08/07/23 03:53 08/07/23 03:53 Labs: Abnormal Lab Results - Last 24 Hours (Table) 08/05/23 08/05/23 08/05/23 Range/Units 11:51 17:56 21:04 RBC (4.10-5.20) X 10*6/uL Hgb (12.0-15.0) g/dL Hct (37.2-46.3) % MCHC (32.0-37.0) g/dL RDW (11.5-14.5) % Lymphocytes # (0.90-5.00) X 10*3/uL BUN (9.0-27.0) mg/dL Est GFR (CKD-EPI) (>=60) Glucose (70-110) mg/dL POC Glucose (mg/dL) 162 H 176 H 285 H (70-110) mg/dL Calcium (8.7-10.3) mg/dL Total Bilirubin (0.3-1.2) mg/dL Total Protein (6.2-8.2) g/dL Albumin (3.8-4.9) g/dL Albumin/Globulin Ratio (1.60-3.17) Ratio 08/06/23 08/06/23 08/06/23 Range/Units 05:49 06:51 06:51 RBC 3.55 L (4.10-5.20) X 10*6/uL Hgb 10.1 L (12.0-15.0) g/dL Hct 34.0 L (37.2-46.3) % MCHC 29.7 L (32.0-37.0) g/dL RDW 15.8 H (11.5-14.5) % Lymphocytes # 0.73 L (0.90-5.00) X 10*3/uL BUN 27.8 H (9.0-27.0) mg/dL Est GFR (CKD-EPI) 41 L (>=60) Glucose 155 H (70-110) mg/dL POC Glucose (mg/dL) 187 H (70-110) mg/dL Calcium 8.5 L (8.7-10.3) mg/dL Total Bilirubin 0.2 L (0.3-1.2) mg/dL Total Protein 6.1 L (6.2-8.2) g/dL Albumin 3.3 L (3.8-4.9) g/dL Albumin/Globulin Ratio 1.18 L (1.60-3.17) Ratio Microbiology - Last 24 Hours (Table) 08/04/23 15:45 Blood Culture Gram Stain - Preliminary Blood Blood Culture - Preliminary Molecular ID
[2023-08-07 12:01] LABS: Glucose,Whole Blood 75 mg/dL (70-110)
[2023-08-07 14:24] VITALS: RESP 18
--- NOTE | 2023-08-07 16:46 | P.PN ---
Subjective Progress Note Date: 08/07/23 Principal diagnosis: Reason for follow-up is right leg cellulitis and a positive blood culture Patient is a 68-year-old female with a past medical history significant for diabetes mellitus CVA TIA hypertension hyperlipidemia rheumatoid arthritis right lower extremity lymphedema history of recurrent UTI and cellulitis patient has been brought into the hospital for evaluation of confusion and generalized weakness, did have a mild positive UA with patient concern for UTI but also have a component of right leg cellulitis blood culture positive for staph epi. On today's evaluation that is 08/07/2023,the patient remains to be afebrile, patient is on room air not requiring supplemental oxygen and denies any shortness of breath no chest pain or cough.Patient denies having any nausea or vomiting, no abdominal pain and no diarrhea has been reported and denies pain to the right lower extremity. Patient white count is 5.07, creatinine is 1.7 blood culture repeat has been negative so far Objective - Vital Signs Vital signs: Vital Signs Temp 97.4 F L 08/07/23 07:51 Pulse 59 L 08/07/23 07:51 Resp 15 08/07/23 07:51 BP 158/64 08/07/23 07:51 Pulse Ox 97 08/07/23 07:51 FiO2 Intake & Output 08/06/23 08/07/23 08/07/23 18:59 06:59 18:59 Intake Total 118 236 Output Total 300 500 Balance -182 -500 236 Weight 140.614 kg Intake: Oral 118 236 Output: Urine 300 500 Other: Voiding Method External Catheter External Catheter # Voids 1 - Exam GENERAL DESCRIPTION: An elderly female lying in bed in no distress RESPIRATORY SYSTEM: Unlabored breathing , decreased breath sounds at bases HEART: S1 S2 regular rate and rhythm , ABDOMEN: Soft , no tenderness EXTREMITIES: Right leg with diffuse swelling slightly warm - Labs CBC & Chem 7: 08/07/23 03:53 08/07/23 03:53 Labs: Abnormal Lab Results - Last 24 Hours (Table) 08/06/23 08/06/23 08/07/23 Range/Units 17:07 21:22 03:53 RBC 3.47 L (4.10-5.20) X 10*6/uL Hgb 9.8 L (12.0-15.0) g/dL Hct 33.6 L (37.2-46.3) % MCHC 29.2 L (32.0-37.0) g/dL RDW 15.9 H (11.5-14.5) % Anion Gap (4.00-12.00) mmol/L BUN (9.0-27.0) mg/dL Creatinine (0.6-1.5) mg/dL Est GFR (CKD-EPI) (>=60) Glucose (70-110) mg/dL POC Glucose (mg/dL) 175 H 173 H (70-110) mg/dL Calcium (8.7-10.3) mg/dL 08/07/23 08/07/23 Range/Units 03:53 06:17 RBC (4.10-5.20) X 10*6/uL Hgb (12.0-15.0) g/dL Hct (37.2-46.3) % MCHC (32.0-37.0) g/dL RDW (11.5-14.5) % Anion Gap 12.40 H (4.00-12.00) mmol/L BUN 30.8 H (9.0-27.0) mg/dL Creatinine 1.7 H (0.6-1.5) mg/dL Est GFR (CKD-EPI) 32 L (>=60) Glucose 209 H (70-110) mg/dL POC Glucose (mg/dL) 179 H (70-110) mg/dL Calcium 8.5 L (8.7-10.3) mg/dL Microbiology - Last 24 Hours (Table) 08/05/23 13:57 Blood Culture - Preliminary Blood 08/04/23 15:45 Blood Culture Gram Stain - Preliminary Blood Blood Culture - Preliminary Staphylococcus epidermidis Molecular ID Assessment and Plan (1) Cellulitis of right leg Current Visit: No Status: Acute Code(s): L03.115 - CELLULITIS OF RIGHT LOWER LIMB SNOMED Code(s): 99221425331236336 (2) Positive blood culture Current Visit: Yes Status: Acute Code(s): R78.81 - BACTEREMIA SNOMED Code(s): 210476465 Plan: 1patient was in the hospital with mental status changes confusion and this patient who did have elevated white count and concern for possible UTI however urine has not been significantly positive patient did have a history of lymphedema and concern for possible right lower extremity cellulitis likely contributed to her illness. 2-positive blood culture with staph epi likely skin contamination repeat blood cultures been negative 3patient to continue with cefazolin, patient be able to finish therapy with oral Keflex x 7 days on discharge Dictation was produced using [employer] dictation software. please excuse any grammatical, word or spelling errors. Time with Patient: Less than 30
[2023-08-07 17:19] LABS: Glucose,Whole Blood 142 mg/dL (70-110)
[2023-08-07 21:18] LABS: Glucose,Whole Blood 227 mg/dL (70-110)
--- NOTE | 2023-08-08 02:37 | P.PN ---
Subjective Progress Note Date: 08/07/23 This is a pleasant 68-year-old female who was recently admitted with generalized weakness altered mentation as well as possible urinary tract infection. Patient is being followed by infectious disease maintained on antibiotics while waiting for cultures. Blood cultures preliminary showing molecular ID and awaiting repeat blood cultures to determine if cultures are contaminant. Patient improving on empiric antibiotics and will continue. Recommend PT/OT therapy evaluation. Continue with Sina wraps from the lower extremities and elevating while at rest. Encouraged oral intake and increased activity as tolerated 08/07/2023 Patient is seen and evaluated in follow-up today with no acute overnight issues noted. Patient is continued on IV cefazolin with infectious disease following and currently awaiting repeat blood cultures. Initial culture showing staph which are likely contaminant although awaiting repeat to determine discharge antibiotics. Patient was evaluated by physical therapy recommending home with home care and case management following placing referral for [facility]. Debi ent is afebrile with no reports of chest pain or shortness of breath. Patient tolerating diet with no reported nausea or vomiting. Patient has been encouraged to increase activity as tolerated and also continue to elevate lower extremities while at rest. Elevate right upper extremity as well. Review of systems: Constitutional: No reports of fatigue, fever, or chills Cardiovascular: No reports of chest pain or palpitations Respiratory: No reports of shortness of breath or cough GI: No reports of nausea, no reports of vomiting, no diarrhea : No reports of dysuria or retention Neurovascular: reports of generalized weakness All medications have been reviewed PHYSICAL EXAMINATION: GENERAL: The patient is alert and oriented x 3, Well developed, elderly appearing, morbidly obese HEENT: Pupils are round and equally reacting to light. EOMI. no scleral icterus. No conjunctival pallor. Normocephalic, atraumatic. No pharyngeal erythema. No thyromegaly. CARDIOVASCULAR: S1 and S2 muffled PULMONARY: diminished breath sounds bilaterally with no wheezing or rhonchi noted. ABDOMEN: soft. Nontender on exam. obese. non-distended, normoactive bowel sounds. No palpable organomegaly. MUSCULOSKELETAL: No joint swelling or deformity. EXTREMITIES: No cyanosis, clubbing, or pedal edema. NEUROLOGICAL: Gross neurological examination did not reveal any focal deficits. Diffuse weakness SKIN: No rashes. Assessment: Weakness with elevated white blood count with concerns of acute urinary tract infection, present on admission with failure of outpatient treatment Bacteremia, likely contaminant showing Staph epidermidis. Repeat blood cultures are negative Acute on chronic renal failure with dehydration Diabetes mellitus, type II Hypertension Hyperlipidemia History of rheumatoid arthritis Gait dysfunction Morbid obesity with a BMI of 45.8 History of CVA/TIA Sleep apnea but does not use CPAP History of chronic kidney disease, stage III History of depression GI prophylaxis DVT prophylaxis Full code Plan: Recommend to continue with current medications and management with infectious disease following. Preliminary blood cultures showing a molecular ID and possible staph epidermidis with possible contamination and awaiting repeat cultures to finalize Patient is continued on antibiotics in the form of cefazolin and will continue showing clinical improvement, patient will be continued on Keflex for 7 days on discharge Continue monitoring blood sugars closely and will continue with Accu-Cheks before meals and at bedtime and sliding scale Elevate lower extremities and use Sina wraps from the toes up to the knees PT/OT therapy evaluated recommending home with home care. Case management arranging discharge planning and referrals placed Possible discharge planning in next 24 hours if repeat blood cultures are negative Due to multiple complex medical issues, prognosis is guarded The impression and plan of care has been dictated by Ruth Theodore, nurse practitioner as directed. Dr. Ty MD I have performed a history and examination and MDM of this patient, discussed the same with the dictator, and agree with the dictator's assessment and plan a s written ,documented as a scribe. Based on total visit time, I have performed more than 50% of the visit. Any additional findings or plans will be noted. Objective - Vital Signs Vital signs: Vital Signs Temp 97.4 F L 08/07/23 07:51 Pulse 59 L 08/07/23 07:51 Resp 15 08/07/23 07:51 BP 158/64 08/07/23 07:51 Pulse Ox 97 08/07/23 07:51 FiO2 Intake & Output 08/06/23 08/07/23 08/07/23 18:59 06:59 18:59 Intake Total 118 236 Output Total 300 500 Balance -182 -500 236 Weight 140.614 kg Intake: Oral 118 236 Output: Urine 300 500 Other: Voiding Method External Catheter External Catheter # Voids 1 - Labs CBC & Chem 7: 08/07/23 03:53 08/07/23 03:53 Labs: Abnormal Lab Results - Last 24 Hours (Table) 08/06/23 08/06/23 08/06/23 Range/Units 06:51 06:51 17:07 RBC 3.55 L (4.10-5.20) X 10*6/uL Hgb 10.1 L (12.0-15.0) g/dL Hct 34.0 L (37.2-46.3) % MCHC 29.7 L (32.0-37.0) g/dL RDW 15.8 H (11.5-14.5) % Lymphocytes # 0.73 L (0.90-5.00) X 10*3/uL Anion Gap (4.00-12.00) mmol/L BUN 27.8 H (9.0-27.0) mg/dL Creatinine (0.6-1.5) mg/dL Est GFR (CKD-EPI) 41 L (>=60) Glucose 155 H (70-110) mg/dL POC Glucose (mg/dL) 175 H (70-110) mg/dL Calcium 8.5 L (8.7-10.3) mg/dL Total Bilirubin 0.2 L (0.3-1.2) mg/dL Total Protein 6.1 L (6.2-8.2) g/dL Albumin 3.3 L (3.8-4.9) g/dL Albumin/Globulin Ratio 1.18 L (1.60-3.17) Ratio 08/06/23 08/07/23 08/07/23 Range/Units 21:22 03:53 03:53 RBC 3.47 L (4.10-5.20) X 10*6/uL Hgb 9.8 L (12.0-15.0) g/dL Hct 33.6 L (37.2-46.3) % MCHC 29.2 L (32.0-37.0) g/dL RDW 15.9 H (11.5-14.5) % Lymphocytes # (0.90-5.00) X 10*3/uL Anion Gap 12.40 H (4.00-12.00) mmol/L BUN 30.8 H (9.0-27.0) mg/dL Creatinine 1.7 H (0.6-1.5) mg/dL Est GFR (CKD-EPI) 32 L (>=60) Glucose 209 H (70-110) mg/dL POC Glucose (mg/dL) 173 H (70-110) mg/dL Calcium 8.5 L (8.7-10.3) mg/dL Total Bilirubin (0.3-1.2) mg/dL Total Protein (6.2-8.2) g/dL Albumin (3.8-4.9) g/dL Albumin/Globulin Ratio (1.60-3.17) Ratio 08/07/23 Range/Units 06:17 RBC (4.10-5.20) X 10*6/uL Hgb (12.0-15.0) g/dL Hct (37.2-46.3) % MCHC (32.0-37.0) g/dL RDW (11.5-14.5) % Lymphocytes # (0.90-5.00) X 10*3/uL Anion Gap (4.00-12.00) mmol/L BUN (9.0-27.0) mg/dL Creatinine (0.6-1.5) mg/dL Est GFR (CKD-EPI) (>=60) Glucose (70-110) mg/dL POC Glucose (mg/dL) 179 H (70-110) mg/dL Calcium (8.7-10.3) mg/dL Total Bilirubin (0.3-1.2) mg/dL Total Protein (6.2-8.2) g/dL Albumin (3.8-4.9) g/dL Albumin/Globulin Ratio (1.60-3.17) Ratio Microbiology - Last 24 Hours (Table) 08/05/23 13:57 Blood Culture - Preliminary Blood 08/04/23 15:45 Blood Culture Gram Stain - Preliminary Blood Blood Culture - Preliminary Staphylococcus epidermidis Molecular ID
[2023-08-08 05:40] LABS: Glucose,Whole Blood 159 mg/dL (70-110)
[2023-08-08 08:23] VITALS: BP 133/62; PULSE 63; TEMP 97.8
[2023-08-08 09:36] LABS: Glucose,Whole Blood 211 mg/dL (70-110)
--- NOTE | 2023-08-08 14:41 | P.PN ---
Subjective Progress Note Date: 08/08/23 Principal diagnosis: Reason for follow-up is right leg cellulitis and a positive blood culture Patient is a 68-year-old female with a past medical history significant for diabetes mellitus CVA TIA hypertension hyperlipidemia rheumatoid arthritis right lower extremity lymphedema history of recurrent UTI and cellulitis patient has been brought into the hospital for evaluation of confusion and generalized weakness, did have a mild positive UA with patient concern for UTI but also have a component of right leg cellulitis blood culture positive for staph epi. On today's evaluation that is 08/08/2023, the patient continues to be afebrile, the patient is on room air and breathing comfortably, the Pt denies having any chest pain or cough, the patient denies having any abdominal pain no vomiting or any diarrhea denies pain to the right lower extremity. No new lab has been obtained today initial blood culture with staph epi repeat is negative Objective - Vital Signs Vital signs: Vital Signs Temp 97.8 F 08/08/23 07:25 Pulse 63 08/08/23 07:25 Resp 18 08/08/23 07:25 BP 133/62 08/08/23 07:25 Pulse Ox 95 08/08/23 07:25 FiO2 Intake & Output 08/07/23 08/08/23 08/08/23 18:59 06:59 18:59 Intake Total 896 0 Output Total 900 700 Balance -4 -700 0 Intake: Oral 896 0 Output: Urine 900 700 Other: Voiding Method External Catheter External Catheter External Catheter - Exam GENERAL DESCRIPTION: An elderly female lying in bed in no distress RESPIRATORY SYSTEM: Unlabored breathing , decreased breath sounds at bases HEART: S1 S2 regular rate and rhythm , ABDOMEN: Soft , no tenderness EXTREMITIES: Right leg with diffuse swelling slightly warm - Labs CBC & Chem 7: 08/07/23 03:53 08/07/23 03:53 Labs: Abnormal Lab Results - Last 24 Hours (Table) 08/07/23 08/07/23 08/08/23 Range/Units 17:17 21:17 05:39 POC Glucose (mg/dL) 142 H 227 H 159 H (70-110) mg/dL 08/08/23 Range/Units 09:34 POC Glucose (mg/dL) 211 H (70-110) mg/dL Microbiology - Last 24 Hours (Table) 08/05/23 13:57 Blood Culture - Preliminary Blood 08/04/23 15:45 Blood Culture Gram Stain - Final Blood Blood Culture - Final Staphylococcus epidermidis Molecular ID Assessment and Plan (1) Cellulitis of right leg Status: Acute Code(s): L03.115 - CELLULITIS OF RIGHT LOWER LIMB SNOMED Code(s): 22415422671208420 (2) Positive blood culture Status: Acute Code(s): R78.81 - BACTEREMIA SNOMED Code(s): 856337018 Plan: 1patient was in the hospital with mental status changes confusion and this patient who did have elevated white count and concern for possible UTI however urine has not been significantly positive patient did have a history of l ymphedema and concern for possible right lower extremity cellulitis likely contributed to her illness. 2-positive blood culture with staph epi likely skin contamination repeat blood cultures been negative 3patient has shown clinical improvement with cefazolin, plan is to finish therapy with oral Keflex x 7 days on discharge along with compression to the right leg to keep the swelling down Dictation was produced using [employer] dictation software. please excuse any grammatical, word or spelling errors.
--- NOTE | 2023-08-08 22:58 | DS ---
DISCHARGE SUMMARY FINAL DIAGNOSES: 1. Weakness and WBC, possible acute UTI present on admission. 2. Bacteremia, contamination with Staph epi. 3. Acute on chronic renal failure. 4. Diabetes mellitus type 2. 5. Multiple medical issues. DISCHARGE DISPOSITION: The patient will be discharged in stable condition with guarded prognosis. HISTORY OF PRESENT ILLNESS: This 68-year-old woman was admitted with multiple complex medical issues as mentioned earlier, treated empirically with antibiotics. The patient improved significantly. Dr. Muller cleared the patient for discharge. PHYSICAL EXAMINATION: VITAL SIGNS: Stable. CARDIOVASCULAR: S1, S2. ABDOMEN: Soft. NERVOUS SYSTEM: Nonfocal. The patient will be discharged with Keflex 500 mg p.o. q.8h for 7 days and continue with rest of medications. Please refer to the medication reconciliation sheet for list of medications and follow with Dr. Moreno and continue to monitor. MMODL / CORBYN: [id number] /
--- NOTE | 2023-08-11 17:01 | CDI ---
Documentation Clarification Form Date: 08/11/2023 04:53:24 PM From: Raissa Waddell Phone: Admit Date: 08/04/2023 04:03:00 PM Patient Name: Alma Vivar Visit Number: [id number] Discharge Date: 08/08/2023 01:08:00 PM ATTENTION: The Clinical Documentation Specialists (CDI) and [facility] Coding Staff appreciate your assistance in clarifying documentation. Please respond to the clarification below the line at the bottom and electronically sign. The CDI & [facility] Coding staff will review the response and follow-up if needed. Please note: Queries are made part of the Legal Health Record. If you have any questions, please contact the author of this message via ITS. Dr. Alix Crawford Cellulitis is documented per Consult Note 08/04 and following Progress Notes. Additional clarification regarding the type of cellulitis is requested. History/risk factors: 68yo F, Cellulitis of right leg, DMII, GERSON on CKD3, HTN, HLD, RA, lymphedema, EARL, UTI w Hx Clinical Indicators: positive blood culturewithstaphepi likely skin contamination repeat blood cultures been negative Treatment: patient has shown clinical improvement with cefazolin, plan is to finish therapywith oral Keflex x 7 days on discharge along withcompressionto the right leg to keep theswellingdown Please clarify the type of cellulitis, if known: [ ] Cellulitis d/t DMII [ ] Other, please specify: [ ] Unable to determine (Template Last Revised: February 2022) Cellulitis d/t DMII MTDD
--- NOTE | 2023-08-11 17:12 | CDI ---
Documentation Clarification Form Date: 08/11/2023 05:03:16 PM From: Raissa Waddell Phone: Admit Date: 08/04/2023 04:03:00 PM Patient Name: Alma Vivar Visit Number: [id number] Discharge Date: 08/08/2023 01:08:00 PM ATTENTION: The Clinical Documentation Specialists (CDI) and [facility] Coding Staff appreciate your assistance in clarifying documentation. Please respond to the clarification below the line at the bottom and electronically sign. The CDI & [facility] Coding staff will review the response and follow-up if needed. Please note: Queries are made part of the Legal Health Record. If you have any questions, please contact the author of this message via ITS. Dr. Alix Crawford Your patient has an abnormal lab value: A1c 9.5. Please clarify if there is an additional diagnosis and/or clinical significance related to this value. History/Risk Factors: 68yo F, Cellulitis of right leg, DMII, GERSON on CKD3, HTN, HLD, RA, lymphedema, EARL, UTI w Hx Clinical indicators: Glucose: 08/03 187-190 08/04 149-227 08/05 155-285 08/06 155-209 08/07 142-227 Treatment: Continue monitoring blood sugars closely and will continue with Accu-Cheks before meals and at bedtime andslidingscale Home Meds: Insulin Aspart (Novolog) 14 unit SQ AC-TID; Insulin Glargine, Hum. rec. anlog 30 unit SQ HS [Lantus Solostar Pen] Is there an additional diagnosis and/or clinical significance related to the above lab result/information? [ ] Type 2 diabetes mellitus with hyperglycemia [ ] No additional diagnosis/Not clinically significant [ ] Other, please specify [ ] Unable to determine (Template Last Revised: March 2020) Type 2 diabetes mellitus with hyperglycemia MTDD
== END 2023-08-08 13:08 | disposition home health service (06) | DRG 690 ==
LOC: EC 12:25 → 4SSUR 16:03 → 1SOBS 21:03 → 6NMEDSUR 08-05 16:41
PROVIDERS: ADMIT Hospitalist; ATTEND Hospitalist
DX: N39.0 Urinary tract infection, site not specified (principal); R78.81 Bacteremia; N17.9 Acute kidney failure, unspecified; I69.354 Hemiplegia and hemiparesis following cerebral infarction affecting left non-dominant side; L03.115 Cellulitis of right lower limb; Z68.42 Body mass index [BMI] 45.0-49.9, adult; E11.22 Type 2 diabetes mellitus with diabetic chronic kidney disease; E11.628 Type 2 diabetes mellitus with other skin complications; E11.65 Type 2 diabetes mellitus with hyperglycemia; M06.9 Rheumatoid arthritis, unspecified; N18.30 Chronic kidney disease, stage 3 unspecified; E66.01 Morbid (severe) obesity due to excess calories; Z79.4 Long term (current) use of insulin; F32.A Depression, unspecified; I12.9 Hypertensive chronic kidney disease with stage 1 through stage 4 chronic kidney disease, or unspecified chronic kidney disease; E86.0 Dehydration; E78.5 Hyperlipidemia, unspecified; R26.9 Unspecified abnormalities of gait and mobility; I89.0 Lymphedema, not elsewhere classified; G47.33 Obstructive sleep apnea (adult) (pediatric); Z79.82 Long term (current) use of aspirin; Z98.84 Bariatric surgery status; Z79.899 Other long term (current) drug therapy; Z86.14 Personal history of Methicillin resistant Staphylococcus aureus infection; Z87.440 Personal history of urinary (tract) infections; Z88.6 Allergy status to analgesic agent
CPT/HCPCS: 36415; 70450; 71046; 74176; 80048; 80053; 81001; 82565; 83036; 83605; 83735; 85025; 87040; 87077; 87186; 93005; 94760; 96365; 96366; 96368; 99285

== ENCOUNTER 2024-06-06 12:55 | Inpatient (IN) | payer MEDICARE ==
--- NOTE | 2024-06-06 13:13 | ED ---
General Adult HPI - General Chief complaint: Shortness of Breath Stated complaint: SOB Time Seen by Provider: 06/06/24 13:00 Source: patient, family, RN notes reviewed Mode of arrival: ambulatory Limitations: no limitations - History of Present Illness Initial comments: Patient is a 69-year-old female present to the emergency department with concerns with difficulty breathing. Symptoms have been occurring for the past week. Patient has orthopnea and exertional dyspnea. No chest pain. No upper respiratory congestion or fever. Patient has increased leg edema. Patient has increased fatigue. Decreased urinary output. Patient did see her doctor and Lasix was switched from 40 twice daily to 80 mg in the morning. - Related Data Home Medications Medication Instructions Recorded Confirmed Atorvastatin [Lipitor] 40 mg PO DAILY 01/06/17 06/06/24 carvediloL [Coreg*] 12.5 mg PO BID 04/06/18 06/06/24 INSULIN ASPART (NovoLOG) [NovoLOG 12 unit SQ TID 09/29/19 06/06/24 (formulary)] Pregabalin [Lyrica] 75 mg PO TID 09/29/19 06/06/24 amLODIPine [Norvasc] 10 mg PO DAILY 09/29/19 06/06/24 Aspirin EC [Ecotrin Low Dose] 81 mg PO DAILY 07/01/21 06/06/24 Insulin Glargine,Hum.rec.anlog 30 unit SQ HS 07/01/21 06/06/24 [Lantus Solostar Pen] Furosemide [Lasix] 20 mg PO BID PRN 08/04/23 06/06/24 HYDROcodone/APAP 10-325MG [[place] 1 tab PO TID 06/06/24 06/06/24 10-325] Potassium Chloride 10 meq PO DAILY PRN 06/06/24 06/06/24 Tirzepatide [Mounjaro] 2.5 mg SQ DIRECTED 06/06/24 06/06/24 Allergies Allergy/AdvReac Type Severity Reaction Status Date / Time NSAIDS (Non-Steroidal Allergy Unknown Verified 06/06/24 13:59 Anti-Inflamma Review of Systems ROS Statement: Those systems with pertinent positive or pertinent negative responses have been documented in the HPI. ROS Other: All systems not noted in ROS Statement are negative. Constitutional: Denies: fever Eyes: Denies: eye pain ENT: Denies: ear pain Respiratory: Reports: as per HPI, dyspnea. Denies: cough Cardiovascular: Reports: dyspnea on exertion, orthopnea, edema. Denies: chest pain Endocrine: Reports: fatigue Gastrointestinal: Denies: abdominal pain Musculoskeletal: Denies: back pain Past Medical History Past Medical History: CVA/TIA, Diabetes Mellitus, GERD/Reflux, Hyperlipidemia, Hypertension, Renal Disease, Rheumatoid Arthritis (RA), Sleep Apnea/CPAP/BIPAP Additional Past Medical History / Comment(s): CKD stage 3, broken Lt foot 2011-n o sx, stroke 2004 affected non dominant lt side . lt side weaker than rt", vertigo, neck pain, mini stroke nov 2016. EARL and she has not used CPAP, RA, HTN, GERD, DM2 , right big toe ulcer. 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 Date of last positivie culture/infection: 09/27/20 MDRO Source:: LEG MRSA Past Surgical History: Breast Surgery, Cholecystectomy Additional Past Surgical History / Comment(s): breast biopsy, gastric sleeve 11/07/14, colonoscopy 04/14/14, bilateral cataract surgery Past Anesthesia/Blood Transfusion Reactions: Motion Sickness Past Psychological History: Depression Smoking Status: Never smoker Past Alcohol Use History: None Reported Past Drug Use History: None Reported - Past Family History Mother Family Medical History: Diabetes Mellitus Additional Family Medical History / Comment(s): heart attack, Brother of lung cancer 04/19/14 Father Family Medical History: Cancer Additional Family Medical History / Comment(s): lung cancer Brother(s) Family Medical History: Cancer Additional Family Medical History / Comment(s): LUNG General Exam Limitations: no limitations General appearance: alert, in no apparent distress Head exam: Present: normocephalic Eye exam: Present: normal appearance Respiratory exam: Present: decreased breath sounds (Bilateral bases) Cardiovascular Exam: Present: regular rate, normal rhythm GI/Abdominal exam: Present: soft. Absent: tenderness Extremities exam: Present: pedal edema. Absent: calf tenderness Neurological exam: Present: alert Psychiatric exam: Present: normal affect, normal mood Skin exam: Present: normal color Course Vital Signs 06/06/24 06/06/24 06/06/24 12:57 13:00 14:00 Temperature 97.6 F Pulse Rate 50 L 52 L 60 Respiratory 18 20 24 Rate Blood Pressure 124/71 109/59 124/64 O2 Sat by Pulse 94 L 96 96 Oximetry EKG Findings - EKG Results: EKG: interpreted by ERMD (Right axis. Q wave V1. Motion artifact present.), sinus rhythm, normal ST/T EKG shows: bradycardia Medical Decision Making - Medical Decision Making Was pt. sent in by a medical professional or institution (, REGINA, DIRECTOR ACCOUNT MANAGEMENT, urgent care, hospital, or half-way...) When possible be specific @ -No Did you speak to anyone other than the patient for history (EMS, parent, family, police, friend...)? What history was obtained from this source @ - helps provide history as he appears to be a software integrator for the patient. This includes patient's symptoms and signs Did you review nursing and triage notes (agree or disagree)? Why? @ -I reviewed and agree with nursing and triage notes Were old charts reviewed (outside hosp., previous admission, EMS record, old EKG, old radiological studies, urgent care reports/EKG's, half-way records)? Report findings @ -No old charts were reviewed Differential Diagnosis (chest pain, altered mental status, abdominal pain women, abdominal pain men, vaginal bleeding, weakness, fever, dyspnea, syncope, headache, dizziness, GI bleed, back pain, seizure, CVA, palpatations, mental health, musculoskeletal)? @ -Differential Dyspnea: Coronary syndrome, arrhythmia, tamponade, asthma, COPD, pulmonary embolism, pn eumonia, pneumothorax, pulmonary effusion, anaphylaxis, diabetic ketoacidosis, flailed chest, pulmonary contusion, diaphragmatic rupture, anemia, neuromuscular, this is not meant to be an all-inclusive list. EKG interpreted by me (3pts min.). @ -As above X-rays interpreted by me (1pt min.). @ -Chest x-ray concerning for CHF CT interpreted by me (1pt min.). @ -None done U/S interpreted by me (1pt. min.). @ -None done What testing was considered but not performed or refused? (CT, X-rays, U/S, labs)? Why? @ -None What meds were considered but not given or refused? Why? @ -None Did you discuss the management of the patient with other professionals (professionals i.e. Dr., PA, DIRECTOR ACCOUNT MANAGEMENT, lab, RT, psych nurse, social studies teacher, irrigator head, teacher, structural engineering drafting officer, onsite case manager)? Give summary @ -Case was discussed with Dr. Salazar who will admit covering Dr. Rabago Was smoking cessation discussed for >3mins.? @ -No Was critical care preformed (if so, how long)? @ -No Were there social determinants of health that impacted care today? How? (Homelessness, low income, unemployed, alcoholism, drug addiction, transportation, low edu. Level, literacy, decrease access to med. care, usp, rehab)? @ -No Was there de-escalation of care discussed even if they declined (Discuss DNR or withdrawal of care, Hospice)? DNR status @ -No What co-morbidities impacted this encounter? (DM, HTN, Smoking, COPD, CAD, Cancer, CVA, ARF, Chemo, Hep., AIDS, mental health diagnosis, sleep apnea, morbid obesity)? @ -None Was patient admitted / discharged? Hospital course, mention meds given and route, prescriptions, significant lab abnormalities, going to OR and other pertinent info. @ -Patient presents with dyspnea, exertional dyspnea and orthopnea and leg edema. Chest x-ray concern for CHF. Patient will be admitted. Admission orders written. Patient reevaluated. Patient and family updated. Undiagnosed new problem with uncertain prognosis? @ -No Drug Therapy requiring intensive monitoring for toxicity (Heparin, Nitro, Insulin, Cardizem)? @ -No Were any procedures done? @ -No Diagnosis/symptom? @ -CHF Acute, or Chronic, or Acute on Chronic? @ -Acute Uncomplicated (without systemic symptoms) or Complicated (systemic symptoms)? @ -Default Side effects of treatment? @ -No Exacerbation, Progression, or Severe Exacerbation? @ -No Poses a threat to life or bodily function? How? (Chest pain, USA, CT, pneumonia, PE, COPD, DKA, ARF, appy, cholecystitis, CVA, Diverticulitis, Homicidal, Suici harshil, threat to staff... and all critical care pts) @ -No - Lab Data Result diagrams: 06/06/24 13:11 06/06/24 13:11 Lab Results 06/06/24 06/06/24 06/06/24 Range/Units 13:11 13:11 13:11 WBC 13.57 H (4.50-10.00) 10*3/uL RBC 3.56 L (4.10-5.20) 10*6/uL Hgb 10.4 L (12.0-15.0) g/dL Hct 33.6 L (37.2-46.3) % MCV 94.4 (80.0-97.0) fL MCH 29.2 (27.0-32.0) pg MCHC 31.0 L (32.0-37.0) g/dL Plt Count 241 (140-440) 10*3/uL MPV 11.1 (9.5-12.2) fL Immature Gran % (Auto) 0.4 % Neutrophils % 87.7 % Lymphocytes % 5.3 % Monocytes % 5.3 % Eosinophils % 1.1 % Basophils % 0.2 % Immature Gran # 0.06 H (0.00-0.04) 10*3/uL Neutrophils # 11.89 H (1.80-7.70) 10*3/uL Lymphocytes # 0.72 L (0.90-5.00) 10*3/uL Monocytes # 0.72 (0.20-1.00) 10*3/uL Eosinophils # 0.15 (0.04-0.35) 10*3/uL Basophils # 0.03 (0.00-0.10) 10*3/uL PT 11.3 (10.0-12.5) sec INR 1.0 (<1.2) APTT 36.2 H (22.0-30.0) sec Sodium 141 (137-145) mmol/L Potassium 5.0 (3.5-5.1) mmol/L Chloride 106 (98-107) mmol/L Carbon Dioxide 28 (22-30) mmol/L Anion Gap 7 mmol/L BUN 38 H (7-17) mg/dL Creatinine 1.33 H (0.52-1.04) mg/dL Est GFR (CKD-EPI)AfAm 47 (>60 ml/min/1.73 sqM) Est GFR (CKD-EPI)NonAf 41 (>60 ml/min/1.73 sqM) Glucose 86 (74-99) mg/dL Calcium 9.0 (8.4-10.2) mg/dL Magnesium 2.1 (1.6-2.3) mg/dL Total Bilirubin 1.1 (0.2-1.3) mg/dL AST 31 (14-36) U/L ALT 20 (4-34) U/L Alkaline Phosphatase 87 (38-126) U/L Troponin I (0.000-0.034) ng/mL NT-Pro-B Natriuret Pep 2600 pg/mL Total Protein 7.1 (6.3-8.2) g/dL Albumin 3.6 (3.5-5.0) g/dL 06/06/24 Range/Units 13:11 WBC (4.50-10.00) 10*3/uL RBC (4.10-5.20) 10*6/uL Hgb (12.0-15.0) g/dL Hct (37.2-46.3) % MCV (80.0-97.0) fL MCH (27.0-32.0) pg MCHC (32.0-37.0) g/dL Plt Count (140-440) 10*3/uL MPV (9.5-12.2) fL Immature Gran % (Auto) % Neutrophils % % Lymphocytes % % Monocytes % % Eosinophils % % Basophils % % Immature Gran # (0.00-0.04) 10*3/uL Neutrophils # (1.80-7.70) 10*3/uL Lymphocytes # (0.90-5.00) 10*3/uL Monocytes # (0.20-1.00) 10*3/uL Eosinophils # (0.04-0.35) 10*3/uL Basophils # (0.00-0.10) 10*3/uL PT (10.0-12.5) sec INR (<1.2) APTT (22.0-30.0) sec Sodium (137-145) mmol/L Potassium (3.5-5.1) mmol/L Chloride (98-107) mmol/L Carbon Dioxide (22-30) mmol/L Anion Gap mmol/L BUN (7-17) mg/dL Creatinine (0.52-1.04) mg/dL Est GFR (CKD-EPI)AfAm (>60 ml/min/1.73 sqM) Est GFR (CKD-EPI)NonAf (>60 ml/min/1.73 sqM) Glucose (74-99) mg/dL Calcium (8.4-10.2) mg/dL Magnesium (1.6-2.3) mg/dL Total Bilirubin (0.2-1.3) mg/dL AST (14-36) U/L ALT (4-34) U/L Alkaline Phosphatase (38-126) U/L Troponin I <0.012 (0.000-0.034) ng/mL NT-Pro-B Natriuret Pep pg/mL Total Protein (6.3-8.2) g/dL Albumin (3.5-5.0) g/dL Disposition Clinical Impression: Congestive heart failure Disposition: ADMITTED IP TO THIS HOSP Is patient prescribed a controlled substance at d/c from ED?: No Referrals: Mere Rabago DO [Primary Care Provider] - 1-2 days Time of Disposition: 14:40
[2024-06-06 13:39] LABS: Basophils # (A) 0.03 10*3/uL (0.00-0.10); Basophils % (A) 0.2 %; Eosinophils # (A) 0.15 10*3/uL (0.04-0.35); Eosinophils % (A) 1.1 %; HCT 33.6 % (37.2-46.3); HGB 10.4 g/dL (12.0-15.0); Lymphocytes # (A) 0.72 10*3/uL (0.90-5.00); Lymphocytes % (A) 5.3 %; MCH 29.2 pg (27.0-32.0); MCV 94.4 fL (80.0-97.0); Mean Platelet Volume 11.1 fL (9.5-12.2); Monocytes # (A) 0.72 10*3/uL (0.20-1.00); Monocytes % (A) 5.3 %; Neutrophils # (A) 11.89 10*3/uL (1.80-7.70); Neutrophils % (A) 87.7 %; Platelet Count 241 10*3/uL (140-440); RBC 3.56 10*6/uL (4.10-5.20); RDW 16.3 % (11.5-14.5); WBC 13.57 10*3/uL (4.50-10.00)
[2024-06-06 13:52] LABS: Partial Thromboplastin Time 36.2 sec (22.0-30.0); Prothrombin Time 11.3 sec (10.0-12.5)
[2024-06-06 13:54] LABS: ALT 20 U/L (4-34); African American GFR (CKD) 47 (>60 ml/min/1.73 sqM); Albumin 3.6 g/dL (3.5-5.0); Anion Gap 7 mmol/L; Blood Urea Nitrogen 38 mg/dL (7-17); Carbon Dioxide 28 mmol/L (22-30); Chloride 106 mmol/L (98-107); Glucose 86 mg/dL (74-99); Non-African American GFR(CKD) 41 (>60 ml/min/1.73 sqM); Sodium 141 mmol/L (137-145); Total Bilirubin 1.1 mg/dL (0.2-1.3); Total Protein 7.1 g/dL (6.3-8.2)
[2024-06-06 14:03] LABS: NT-Pro-B-Type Natriuretic Pept 2600 pg/mL
[2024-06-06] MEDS: FUROSEMIDE 10 MG/ML 4 ML VIAL IV STA (14:05)
[2024-06-06 14:10] LABS: AST 31 U/L (14-36); Alkaline Phosphatase 87 U/L (38-126); Magnesium 2.1 mg/dL (1.6-2.3)
--- NOTE | 2024-06-06 14:28 | XR ---
EXAMINATION TYPE: XR chest 2V DATE OF EXAM: 06/06/2024 2:24 PM COMPARISON: 08/04/2023 CLINICAL INDICATION: Female, 69 years old with history of difficulty breathing, shortness of breath TECHNIQUE: AP and lateral views FINDINGS: Heart is mildly enlarged. Perihilar and diffuse interstitial opacity. Trace bilateral pleural effusio ns on the lateral view. IMPRESSION: Mild cardiomegaly with diffuse interstitial and perihilar changes. Trace pleural effusions on the lat eral view. Correlate for CHF with early interstitial pulmonary edema. [facility], Workstation: [facility], 06/06/2024 2:26 PM
[2024-06-06] MEDS: NITROGLYCERIN OINT 1 INCH/GM PACKET TOPICAL SCH (15:50)
[2024-06-06] MEDS: ASPIRIN 325 MG TAB PO STA (15:50)
[2024-06-06] MEDS: MORPHINE SULFATE 4 MG/ML SYRINGE IVP STA (16:02)
[2024-06-06 18:06] LABS: Glucose,Whole Blood 100 mg/dL (70-110)
[2024-06-06] MEDS: HYDROcodone/APAP 10-325MG 1 EACH TAB PO PRN (19:43)
[2024-06-06] MEDS ORDERED: POTASSIUM CHLORIDE ER 10 MEQ TAB.ER.PRT PO PRN (20:38)
[2024-06-06 21:35] LABS: Glucose,Whole Blood 177 mg/dL (70-110)
[2024-06-06] MEDS: carvediloL 12.5 MG TAB PO SCH (21:44)
[2024-06-06] MEDS: PREGABALIN 75 MG CAP PO SCH (21:44)
[2024-06-06] MEDS: INSULIN GLARGINE (LANTUS) 100 UNIT/ML SYR SQ SCH (21:45)
[2024-06-06] MEDS: INSULIN LISPRO (HumaLOG) 100 UNIT/ML 10 mL VL SQ SCH (21:46)
--- NOTE | 2024-06-06 22:19 | P.HPIM ---
History of Present Illness This is a pleasant 69 years old female who presents because of worsening dyspnea over 1.5-week with no chest pain or coughing or phlegm No other specific GI/ symptoms no headache dizziness weakness. She denies smoking alcohol or illicit drugs. Patient uses a walker and recently has been experiencing exertional dyspnea more than usual She went to see her PCP Dr. Rabago who referred her to the hospital As per patient has been peeing less Patient is hemodynamically stable She has mild bradycardia Labs reviewed showing leukocytosis with 13.5 Hemoglobin 10.4 Creatinine 1.3 which is baseline of 1.3-2.2 INR and troponin were negative LFT negative EKG showing sinus bradycardia at [address]-T changes proBNP is 2600 Chest x-ray is ordered and showing CHF with cardiomegaly, I reviewed chest x-ray by myself and I agree Review of Systems Review of systems CONSTITUTIONAL: No fever, no malaise, no fatigue. HEENT: No recent visual problems or hearing problems. Denied any sore throat. CARDIOVASCULAR: No orthopnea, PND, no palpitations, no syncope. PULMONARY: no cough, no hemoptysis. GASTROINTESTINAL: No diarrhea, no nausea, no vomiting, no abdominal pain. Normoactive bowel sounds. NEUROLOGICAL: No headaches, no weakness, no numbness. HEMATOLOGICAL: Denies any bleeding or petechiae. GENITOURINARY: Denies any burning micturition, frequency, or urgency. MUSCULOSKELETAL/RHEUMATOLOGICAL: Denies any joint pain, swelling, or any muscle pain. ENDOCRINE: Denies any polyuria or polydipsia. Past Medical History Past Medical History: CVA/TIA, Diabetes Mellitus, GERD/Reflux, Hyperlipidemia, Hypertension, Renal Disease, Rheumatoid Arthritis (RA), Sleep Apnea/CPAP/BIPAP Additional Past Medical History / Comment(s): CKD stage 3, broken Lt foot 2011- no sx, stroke 2004 affected non dominant lt side . lt side weaker than rt", vertigo, neck pain, mini stroke nov 2016. EARL and she has not used CPAP, RA, HTN, GERD, DM2 , right big toe ulcer. 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 Date of last positivie culture/infection: 09/27/20 MDRO Source:: LEG MRSA Past Surgical History: Breast Surgery, Cholecystectomy Additional Past Surgical History / Comment(s): breast biopsy, gastric sleeve 9/29/15, colonoscopy 04/14/14, bilateral cataract surgery Past Anesthesia/Blood Transfusion Reactions: Motion Sickness Past Psychological History: Depression Smoking Status: Never smoker Past Alcohol Use History: None Reported Past Drug Use History: None Reported - Past Family History Mother Family Medical History: Diabetes Mellitus Additional Family Medical History / Comment(s): heart attack, Brother of lung cancer 04/19/14 Father Family Medical History: Cancer Additional Family Medical History / Comment(s): lung cancer Brother(s) Family Medical History: Cancer Additional Family Medical History / Comment(s): LUNG Medications and Allergies Home Medications Medication Instructions Recorded Confirmed Type Atorvastatin [Lipitor] 40 mg PO DAILY 01/06/17 06/06/24 History carvediloL [Coreg*] 12.5 mg PO BID 04/06/18 06/06/24 History INSULIN ASPART (NovoLOG) [NovoLOG 12 unit SQ TID 09/29/19 06/06/24 History (formulary)] Pregabalin [Lyrica] 75 mg PO TID 09/29/19 06/06/24 History amLODIPine [Norvasc] 10 mg PO DAILY 09/29/19 06/06/24 History Aspirin EC [Ecotrin Low Dose] 81 mg PO DAILY 07/01/21 06/06/24 History Insulin Glargine,Hum.rec.anlog 30 unit SQ HS 07/01/21 06/06/24 History [Lantus Solostar Pen] Furosemide [Lasix] 20 mg PO BID PRN 08/04/23 06/06/24 History HYDROcodone/APAP 10-325MG [[place] 1 tab PO TID 06/06/24 06/06/24 History 10-325] Potassium Chloride 10 meq PO DAILY PRN 06/06/24 06/06/24 History Tirzepatide [Mounjaro] 2.5 mg SQ DIRECTED 06/06/24 06/06/24 History Allergies Allergy/AdvReac Type Severity Reaction Status Date / Time NSAIDS (Non-Steroidal Allergy Unknown Verified 06/06/24 13:59 Anti-Inflamma Physical Exam Vitals: Vital Signs Temp Pulse Resp BP Pulse Ox 06/06/24 13:00 52 L 20 109/59 96 06/06/24 12:57 97.6 F 50 L 18 124/71 94 L Intake and Output 06/05/24 06/06/24 06/06/24 22:59 06:59 14:59 Other: Weight 136.078 kg -GENERAL: The patient is alert and oriented x3, not in any acute distress. Well developed, well nourished. Obese HEENT: Pupils are round and equally reacting to light. EOMI. No scleral icterus. No conjunctival pallor. Normocephalic, atraumatic. No pharyngeal erythema. No thyromegaly. CARDIOVASCULAR: S1 and S2 present. No murmurs, rubs, or gallops. -PULMONARY: Chest is clear to auscultation, no wheezing , bilateral basal crackles. ABDOMEN: Soft, nontender, nondistended, normoactive bowel sounds. No palpable organomegaly. MUSCULOSKELETAL: No joint swelling or deformity. -EXTREMITIES: No cyanosis, clubbing. Bilateral leg edema. With elephantiasis NEUROLOGICAL: Gross neurological examination did not reveal any focal deficits. SKIN: No rashes. no petechiae. Results CBC & Chem 7: 06/06/24 13:11 06/06/24 13:11 Labs: Abnormal Lab Results - Last 24 Hours (Table) 06/06/24 06/06/24 Range/Units 13:11 13:11 WBC 13.57 H (4.50-10.00) 10*3/uL RBC 3.56 L (4.10-5.20) 10*6/uL Hgb 10.4 L (12.0-15.0) g/dL Hct 33.6 L (37.2-46.3) % MCHC 31.0 L (32.0-37.0) g/dL Immature Gran # 0.06 H (0.00-0.04) 10*3/uL Neutrophils # 11.89 H (1.80-7.70) 10*3/uL Lymphocytes # 0.72 L (0.90-5.00) 10*3/uL APTT 36.2 H (22.0-30.0) sec Assessment and Plan Assessment: Acute CHF exacerbation Bilateral leg swelling and elephantiasis Diabetes mellitus Hypertension Hyperlipidemia Rheumatoid arthritis Hypothyroidism Sleep apnea on CPAP/BiPAP Chronic kidney disease stage III Depression Continue with IV Lasix Monitor creatinine and electrolytes Cardiology consult Labs and medication were reviewed.. Continue same treatment. Continue with symptomatic treatment. Resume home medication. Monitor lytes and vitals. DVT and GI prophylaxis. Further recommendations depends on the clinical course of the patient DVT prophylaxis: Subcutaneous heparin GI Prophylaxis: Pepcid PT/OT: Pending Prognosis is guarded
[2024-06-06] MEDS: FUROSEMIDE 10 MG/ML 4 ML VIAL IV SCH (23:35)
--- NOTE | 2024-06-07 07:47 | P.PN ---
Subjective This is a pleasant 69 years old female who presents because of worsening dyspnea over 1.5-week with no chest pain or coughing or phlegm No other specific GI/ symptoms no headache dizziness weakness. She denies smoking alcohol or illicit drugs. Patient uses a walker and recently has been experiencing exertional dyspnea more than usual She went to see her PCP Dr. Rabago who referred her to the hospital As per patient has been peeing less Patient is hemodynamically stable She has mild bradycardia Labs reviewed showing leukocytosis with 13.5 Hemoglobin 10.4 Creatinine 1.3 which is baseline of 1.3-2.2 INR and troponin were negative LFT negative EKG showing sinus bradycardia at [address]-T changes proBNP is 2600 Chest x-ray is ordered and showing CHF with cardiomegaly, I reviewed chest x-ray by myself and I agree 06/07 Patient breathing is stable at rest, her legs are severely swollen chronic from elephantiasis and hard to tell if there is improvement. Her right leg feels warm with no worsening erythema, I talked to the patient she states is always right hip and right knee pain she usually takes Rimforest 10 which is already ordered also will order capsaicin Other than that no urinary symptoms or diarrhea. She is saturating 93% on 2 L oxygen via nasal cannula Morning labs still pending Review of systems CONSTITUTIONAL: No fever, no malaise, no fatigue. GASTROINTESTINAL: No diarrhea, no nausea, no vomiting, no abdominal pain. Normoactive bowel sounds. NEUROLOGICAL: No headaches, no weakness, no numbness. HEMATOLOGICAL: Denies any bleeding or petechiae. GENITOURINARY: Denies any burning micturition, frequency, or urgency. Active Medications Generic Name Dose Route Start Last Admin Trade Name Freq PRN Reason Stop Dose Admin Hydrocodone Bitart/Acetaminophen 1 each 06/06/24 18:28 06/07/24 04:13 Hydrocodone/Apap 10-325mg 1 Each Tab PO 1 each Q8HR PRN Administration Pain Amlodipine Besylate 10 mg 06/07/24 09:00 Amlodipine 10 Mg Tab PO DAILY [facility] Aspirin 81 mg 06/07/24 09:00 Aspirin 81 Mg PO DAILY [facility] Atorvastatin Calcium 40 mg 06/07/24 09:00 Atorvastatin 40 Mg Tab PO DAILY [facility] Capsaicin 1 applic 06/07/24 09:00 Capsaicin 0.025% Cream 60 Gm Tube TOPICAL TID [facility] Protocol Carvedilol 12.5 mg 06/06/24 21:00 06/06/24 21:44 Carvedilol 12.5 Mg Tab PO 12.5 mg BID-W/MEALS EMILIANO Administration Furosemide 40 mg 06/06/24 22:00 06/07/24 06:35 Furosemide 10 Mg/Ml 4 Ml Vial IV 40 mg Q8H EMILIANO Administration Insulin Glargine 30 unit 06/06/24 21:00 06/06/24 21:45 Insulin Glargine (Lantus) 100 Unit/Ml Syr SQ 30 unit HS EMILIANO Administration Insulin Human Lispro 12 unit 06/06/24 21:00 06/06/24 21:46 Insulin Lispro (Humalog) 100 Unit/Ml 10 Ml Vl SQ 12 unit TID@0730,1730,2100 EMILIANO Administration Nitroglycerin 1 inch 06/06/24 15:00 06/06/24 23:16 Nitroglycerin Oint 1 Inch/Gm Packet TOPICAL Not Given QID EMILIANO Potassium Chloride 10 meq 06/06/24 20:38 Potassium Chloride Er 10 Meq Tab.Er.Prt PO DAILY PRN w/lasix Pregabalin 75 mg 06/06/24 22:00 06/06/24 21:44 Pregabalin 75 Mg Cap PO 75 mg TID EMILIANO Administration Objective - Vital Signs Vital signs: Vital Signs Temp 97.6 F 06/06/24 18:05 Pulse 71 06/07/24 06:37 Resp 16 06/07/24 06:37 BP 117/44 06/07/24 06:37 Pulse Ox 93 L 06/07/24 06:37 FiO2 Intake & Output 06/06/24 06/07/24 06/07/24 18:59 06:59 18:59 Weight 136.078 kg - Exam -GENERAL: The patient is alert and oriented x3, not in any acute distress. Well developed, well nourished. Obese HEENT: Pupils are round and equally reacting to light. EOMI. No scleral icterus. No conjunctival pallor. Normocephalic, atraumatic. No pharyngeal erythema. No thyromegaly. CARDIOVASCULAR: S1 and S2 present. No murmurs, rubs, or gallops. -PULMONARY: Chest is clear to auscultation, no wheezing , bilateral basal crackles. ABDOMEN: Soft, nontender, nondistended, normoactive bowel sounds. No palpable organomegaly. MUSCULOSKELETAL: No joint swelling or deformity. -EXTREMITIES: No cyanosis, clubbing. Bilateral leg edema. With elephantiasis NEUROLOGICAL: Gross neurological examination did not reveal any focal deficits. SKIN: No rashes. no petechiae. - Labs CBC & Chem 7: 06/06/24 13:11 06/06/24 13:11 Labs: Abnormal Lab Results - Last 24 Hours (Table) 06/06/24 06/06/24 06/06/24 Range/Units 13:11 13:11 13:11 WBC 13.57 H (4.50-10.00) 10*3/uL RBC 3.56 L (4.10-5.20) 10*6/uL Hgb 10.4 L (12.0-15.0) g/dL Hct 33.6 L (37.2-46.3) % MCHC 31.0 L (32.0-37.0) g/dL Immature Gran # 0.06 H (0.00-0.04) 10*3/uL Neutrophils # 11.89 H (1.80-7.70) 10*3/uL Lymphocytes # 0.72 L (0.90-5.00) 10*3/uL APTT 36.2 H (22.0-30.0) sec BUN 38 H (7-17) mg/dL Creatinine 1.33 H (0.52-1.04) mg/dL POC Glucose (mg/dL) (70-110) mg/dL 06/06/24 Range/Units 21:33 WBC (4.50-10.00) 10*3/uL RBC (4.10-5.20) 10*6/uL Hgb (12.0-15.0) g/dL Hct (37.2-46.3) % MCHC (32.0-37.0) g/dL Immature Gran # (0.00-0.04) 10*3/uL Neutrophils # (1.80-7.70) 10*3/uL Lymphocytes # (0.90-5.00) 10*3/uL APTT (22.0-30.0) sec BUN (7-17) mg/dL Creatinine (0.52-1.04) mg/dL POC Glucose (mg/dL) 177 H (70-110) mg/dL Assessment and Plan Assessment: Acute CHF exacerbation Bilateral leg swelling and elephantiasis Right hip and knee pain most likely secondary to osteoarthritis Diabetes mellitus Hypertension Hyperlipidemia Rheumatoid arthritis Hypothyroidism Sleep apnea on CPAP/BiPAP Chronic kidney disease stage III Depression Morbid obesity with BMI 44 Plan: Continue with IV Lasix Monitor creatinine and electrolytes Cardiology consult Pain management Labs and medication were reviewed.. Continue same treatment. Continue with symptomatic treatment. Resume home medication. Monitor lytes and vitals. DVT and GI prophylaxis. Further recommendations depends on the clinical course of the patient DVT prophylaxis: Subcutaneous heparin GI Prophylaxis: Pepcid PT/OT: Pending Prognosis is guarded
[2024-06-07 08:27] LABS: Glucose,Whole Blood 88 mg/dL (70-110)
[2024-06-07] MEDS: ASPIRIN 81 MG PO SCH (08:49)
[2024-06-07] MEDS: amLODIPine 10 MG TAB PO SCH (08:50)
[2024-06-07] MEDS: ATORVASTATIN 40 MG TAB PO SCH (08:50)
[2024-06-07 08:59] LABS: African American GFR (CKD) 40 (>60 ml/min/1.73 sqM); Anion Gap 9 mmol/L; Blood Urea Nitrogen 37 mg/dL (7-17); Calcium 8.7 mg/dL (8.4-10.2); Carbon Dioxide 26 mmol/L (22-30); Chloride 106 mmol/L (98-107); Glucose 89 mg/dL (74-99); Non-African American GFR(CKD) 34 (>60 ml/min/1.73 sqM); Potassium 3.8 mmol/L (3.5-5.1); Sodium 141 mmol/L (137-145)
[2024-06-07] MEDS ORDERED: ASPIRIN 325 MG TAB PO SCH (09:00)
[2024-06-07 09:53] LABS: INR 1.1 (<1.2); Prothrombin Time 11.9 sec (10.0-12.5)
[2024-06-07] MEDS: CAPSAICIN 0.025% CREAM 60 GM TUBE TOPICAL SCH (10:26)
--- NOTE | 2024-06-07 10:39 | P.CRDCN ---
History of Present Illness History of present illness: HISTORY OF PRESENT ILLNESS: This is a 69-year-old female with a past medical history significant for hypertension, hyperlipidemia, congestive heart failure, diabetes, and morbid obesity. Patient does not follow with a masticator. We have been asked to see the patient in consultation for CHF. Patient examined at the bedside in the emergency room. Patient presented to the hospital with a chief complaint of shortness of breath that has been ongoing for the past several days. Patient also reports increased lower extremity edema. Patient was found to be in acute congestive heart failure and was started on IV Lasix. She denies any chest pain or pressure. Denies dizziness or lightheadedness. Denies any palpitations. Vital signs are stable. Telemetry reveals sinus mechanism. DIAGNOSTICS: - EKG reveals sinus bradycardia with no signs of acute ischemia - Chest xray mild cardiomegaly with diffuse interstitial and perihilar changes. Trace pleural effusions on the lateral view. Correlate for CHF with early interstitial pulmonary edema - Laboratory data: WBC 13.35. Hemoglobin 10.4. Platelet count 241. D-dimer 0.76. Sodium 141. Potassium 3.8. BUN 37. Creatinine 1.53. Troponin negative x 3. proBNP 2600. - Current home cardiac medications include aspirin 81 mg daily, Lipitor 40 mg daily, Lasix 20 mg twice a day as needed, amlodipine 10 mg daily, carvedilol 12. 5 mg twice a day. - Most recent echocardiogram obtained in February 2022 revealed ejection fraction 55%, moderate pulmonary hypertension, mild MR, mild TR -Patient underwent Lexiscan stress test in September 2019 which was negative for ischemia REVIEW OF SYSTEMS: At the time of my exam: CONSTITUTIONAL: Denies fever or chills. HEENT: Denies blurred vision, vision changes, or eye pain. Denies hemoptysis CARDIOVASCULAR: Denies chest pain. Denies orthopnea. Denies PND. Denies palpitations RESPIRATORY: Reports shortness of breath. GASTROINTESTINAL: Denies abdominal pain. Denies nausea or vomiting. HEMATOLOGIC: Denies bleeding disorders. GENITOURINARY: Denies any blood in urine. SKIN: Denies pruitis. Denies rash. PHYSICAL EXAM: VITAL SIGNS: Reviewed. GENERAL: Well-developed in no acute distress. HEENT: Head is normocephalic. Pupils are equal, round. Sclerae anicteric. Mucous membranes of the mouth are moist. Neck supple. No JVD or thyromegaly LUNGS: Respirations even and unlabored. Lungs essentially clear to auscultation bilaterally. HEART: Regular rate and rhythm. S1 and S2 heard. ABDOMEN: Soft. Nondistended. Nontender. EXTREMITIES: Normal range of motion. No clubbing or cyanosis. Peripheral pulses intact. Bilateral lower extremity edema with chronic venous stasis NEUROLOGIC: Awake and alert. Oriented x 3. ASSESSMENT: Shortness of breath Acute on chronic heart failure with preserved EF, 55% in 2022, repeat echo pending Moderate pulmonary hypertension Chronic kidney disease Hypertension Hyperlipidemia Diabetes Morbid obesity: BMI 44.3 History of rheumatoid arthritis PLAN: Obtain 2D echo to assess cardiac structure and function Resume home cardiac medications Continue IV Lasix Daily weights, accurate intake and output, monitoring of kidney function Further recommendations pending patient course Nurse practitioner note has been reviewed by physician. Signing provider agrees with the documented findings, assessment, and plan of care documented by CENTRAL OFFICE SUPERVISOR as a scribe. Past Medical History Past Medical History: CVA/TIA, Diabetes Mellitus, GERD/Reflux, Hyperlipidemia, Hypertension, Renal Disease, Rheumatoid Arthritis (RA), Sleep Apnea/CPAP/BIPAP Additional Past Medical History / Comment(s): CKD stage 3, broken Lt foot 2011- no sx, stroke 2004 affected non dominant lt side . lt side weaker than rt", vertigo, neck pain, mini stroke nov 2016. [facility] and she has not used CPAP, RA, HTN, GERD, DM2 , right big toe ulcer. 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 Date of last positivie culture/infection: 09/27/20 MDRO Source:: LEG MRSA Past Surgical History: Breast Surgery, Cholecystectomy Additional Past Surgical History / Comment(s): breast biopsy, gastric sleeve 11/07/14, colonoscopy 04/14/14, bilateral cataract surgery Past Anesthesia/Blood Transfusion Reactions: Motion Sickness Past Psychological History: Depression Smoking Status: Never smoker Past Alcohol Use History: None Reported Past Drug Use History: None Reported - Past Family History Mother Family Medical History: Diabetes Mellitus Additional Family Medical History / Comment(s): heart attack, Brother of lung cancer 04/19/14 Father Family Medical History: Cancer Additional Family Medical History / Comment(s): lung cancer Brother(s) Family Medical History: Cancer Additional Family Medical History / Comment(s): LUNG Medications and Allergies Home Medications Medication Instructions Recorded Confirmed Type Atorvastatin [Lipitor] 40 mg PO DAILY 01/06/17 06/06/24 History carvediloL [Coreg*] 12.5 mg PO BID 04/06/18 06/06/24 History INSULIN ASPART (NovoLOG) [NovoLOG 12 unit SQ TID 09/29/19 06/06/24 History (formulary)] Pregabalin [Lyrica] 75 mg PO TID 09/29/19 06/06/24 History amLODIPine [Norvasc] 10 mg PO DAILY 09/29/19 06/06/24 History Aspirin EC [Ecotrin Low Dose] 81 mg PO DAILY 07/01/21 06/06/24 History Insulin Glargine,Hum.rec.anlog 30 unit SQ HS 07/01/21 06/06/24 History [Lantus Solostar Pen] Furosemide [Lasix] 20 mg PO BID PRN 08/04/23 06/06/24 History HYDROcodone/APAP 10-325MG [Shubert 1 tab PO TID 06/06/24 06/06/24 History 10-325] Potassium Chloride 10 meq PO DAILY PRN 06/06/24 06/06/24 History Tirzepatide [Mounjaro] 2.5 mg SQ DIRECTED 06/06/24 06/06/24 History Allergies Allergy/AdvReac Type Severity Reaction Status Date / Time NSAIDS (Non-Steroidal Allergy Unknown Verified 06/06/24 13:59 Anti-Inflamma Physical Exam Vitals: Vital Signs Temp Pulse Resp BP Pulse Ox 06/07/24 10:00 54 L 20 129/49 93 L 06/07/24 08:26 61 20 136/51 93 L 06/07/24 07:00 93 L 06/07/24 06:37 71 16 117/44 93 L 06/07/24 04:22 68 18 130/49 95 06/06/24 23:05 58 L 18 135/52 94 L 06/06/24 19:46 95 06/06/24 19:45 63 18 139/110 86 L 06/06/24 18:05 97.6 F 62 18 149/65 93 L 06/06/24 16:00 56 L 20 130/68 96 06/06/24 14:00 60 24 124/64 96 06/06/24 13:00 52 L 20 109/59 96 06/06/24 12:57 97.6 F 50 L 18 124/71 94 L Intake and Output 06/06/24 06/07/24 06/07/24 22:59 06:59 14:59 Output Total 700 Balance -700 Output: Urine 700 Results 06/06/24 13:11 06/07/24 08:15 Cardiac Enzymes 06/06/24 06/06/24 06/06/24 Range/Units 13:11 13:11 16:11 AST 31 (14-36) U/L Troponin I <0.012 <0.012 (0.000-0.034) ng/mL 06/06/24 Range/Units 19:50 AST (14-36) U/L Troponin I <0.012 (0.000-0.034) ng/mL Coagulation 06/06/24 06/07/24 Range/Units 13:11 08:15 PT 11.3 11.9 (10.0-12.5) sec APTT 36.2 H (22.0-30.0) sec CBC 06/06/24 Range/Units 13:11 WBC 13.57 H (4.50-10.00) 10*3/uL RBC 3.56 L (4.10-5.20) 10*6/uL Hgb 10.4 L (12.0-15.0) g/dL Hct 33.6 L (37.2-46.3) % Plt Count 241 (140-440) 10*3/uL Comprehensive Metabolic Panel 06/06/24 06/07/24 Range/Units 13:11 08:15 Sodium 141 141 (137-145) mmol/L Potassium 5.0 3.8 (3.5-5.1) mmol/L Chloride 106 106 (98-107) mmol/L Carbon Dioxide 28 26 (22-30) mmol/L BUN 38 H 37 H (7-17) mg/dL Creatinine 1.33 H 1.53 H (0.52-1.04) mg/dL Glucose 86 89 (74-99) mg/dL Calcium 9.0 8.7 (8.4-10.2) mg/dL AST 31 (14-36) U/L ALT 20 (4-34) U/L Alkaline Phosphatase 87 (38-126) U/L Total Protein 7.1 (6.3-8.2) g/dL Albumin 3.6 (3.5-5.0) g/dL Current Medications Generic Name Dose Route Start Last Admin Trade Name Freq PRN Reason Stop Dose Admin Hydrocodone Bitart/Acetaminophen 1 each 06/06/24 18:28 06/07/24 04:13 Hydrocodone/Apap 10-325mg 1 Each Tab PO 1 each Q8HR PRN Administration Pain Amlodipine Besylate 10 mg 06/07/24 09:00 06/07/24 08:50 Amlodipine 10 Mg Tab PO 10 mg DAILY EMILIANO Administration Aspirin 81 mg 06/07/24 09:00 06/07/24 08:49 Aspirin 81 Mg PO 81 mg DAILY EMILIANO Administration Atorvastatin Calcium 40 mg 06/07/24 09:00 06/07/24 08:50 Atorvastatin 40 Mg Tab PO 40 mg DAILY EMILIANO Administration Capsaicin 1 applic 06/07/24 09:00 06/07/24 10:26 Capsaicin 0.025% Cream 60 Gm Tube TOPICAL 1 applic TID EMILIANO Administration Protocol Carvedilol 12.5 mg 06/06/24 21:00 06/07/24 08:50 Carvedilol 12.5 Mg Tab PO 12.5 mg BID-W/MEALS EMILIANO Administration Furosemide 40 mg 06/06/24 22:00 06/07/24 06:35 Furosemide 10 Mg/Ml 4 Ml Vial IV 40 mg Q8H EMILIANO Administration Insulin Glargine 30 unit 06/06/24 21:00 06/06/24 21:45 Insulin Glargine (Lantus) 100 Unit/Ml Syr SQ 30 unit HS EMILIANO Administration Insulin Human Lispro 12 unit 06/06/24 21:00 06/07/24 08:48 Insulin Lispro (Humalog) 100 Unit/Ml 10 Ml Vl SQ 12 unit TID@0730,1730,2100 EMILIANO Administration Potassium Chloride 10 meq 06/06/24 20:38 Potassium Chloride Er 10 Meq Tab.Er.Prt PO DAILY PRN w/lasix Pregabalin 75 mg 06/06/24 22:00 06/07/24 08:50 Pregabalin 75 Mg Cap PO 75 mg TID EMILIANO Administration Intake and Output 06/06/24 06/07/24 06/07/24 22:59 06:59 14:59 Output Total 700 Balance -700 Output: Urine 700 06/06/24 13:11 06/07/24 08:15
[2024-06-07 17:02] LABS: Glucose,Whole Blood 138 mg/dL (70-110)
[2024-06-07 20:06] LABS: Glucose,Whole Blood 100 mg/dL (70-110)
[2024-06-08 07:45] LABS: African American GFR (CKD) 41 (>60 ml/min/1.73 sqM); Anion Gap 11 mmol/L; Blood Urea Nitrogen 38 mg/dL (7-17); Carbon Dioxide 27 mmol/L (22-30); Chloride 102 mmol/L (98-107); Glucose 50 mg/dL (74-99); Non-African American GFR(CKD) 36 (>60 ml/min/1.73 sqM); Sodium 140 mmol/L (137-145)
[2024-06-08 07:58] LABS: Glucose,Whole Blood 60 mg/dL (70-110)
[2024-06-08 08:12] LABS: Glucose,Whole Blood 81 mg/dL (70-110)
--- NOTE | 2024-06-08 11:03 | P.PN ---
Subjective This is a pleasant 69 years old female who presents because of worsening dyspnea over 1.5-week with no chest pain or coughing or phlegm No other specific GI/ symptoms no headache dizziness weakness. She denies smoking alcohol or illicit drugs. Patient uses a walker and recently has been experiencing exertional dyspnea more than usual She went to see her PCP Dr. Rabago who referred her to the hospital As per patient has been peeing less Patient is hemodynamically stable She has mild bradycardia Labs reviewed showing leukocytosis with 13.5 Hemoglobin 10.4 Creatinine 1.3 which is baseline of 1.3-2.2 INR and troponin were negative LFT negative EKG showing sinus bradycardia at [address]-T changes proBNP is 2600 Chest x-ray is ordered and showing CHF with cardiomegaly, I reviewed chest x-ray by myself and I agree 06/07 Patient breathing is stable at rest, her legs are severely swollen chronic from elephantiasis and hard to tell if there is improvement. Her right leg feels warm with no worsening erythema, I talked to the patient she states is always right hip and right knee pain she usually takes [place] 10 which is already ordered also will order capsaicin Other than that no urinary symptoms or diarrhea. She is saturating 93% on 2 L oxygen via nasal cannula Morning labs still pending 06/08 Patient still feels short of breath and somewhat tachypneic However leg swelling and lung crepitation no improvement, mainly on the right side Remains on IV Lasix 40 mg twice daily. We added water restriction today Looks like her right knee pain and hip pain is better controlled today PT/OT pending. creatinine 1.4 Possible discharge 24 to 48 hours if she keeps improving. Review of systems CONSTITUTIONAL: No fever, no malaise, no fatigue. GASTROINTESTINAL: No diarrhea, no nausea, no vomiting, no abdominal pain. Norm oactive bowel sounds. NEUROLOGICAL: No headaches, no weakness, no numbness. HEMATOLOGICAL: Denies any bleeding or petechiae. GENITOURINARY: Denies any burning micturition, frequency, or urgency. Active Medications Generic Name Dose Route Start Last Admin Trade Name Freq PRN Reason Stop Dose Admin Hydrocodone Bitart/Acetaminophen 1 each 06/06/24 18:28 06/08/24 06:33 Hydrocodone/Apap 10-325mg 1 Each Tab PO 1 each Q8HR PRN Administration Pain Amlodipine Besylate 10 mg 06/07/24 09:00 06/08/24 08:30 Amlodipine 10 Mg Tab PO 10 mg DAILY EMILIANO Administration Aspirin 81 mg 06/07/24 09:00 06/08/24 08:30 Aspirin 81 Mg PO 81 mg DAILY EMILIANO Administration Atorvastatin Calcium 40 mg 06/07/24 09:00 06/08/24 08:30 Atorvastatin 40 Mg Tab PO 40 mg DAILY EMILIANO Administration Capsaicin 1 applic 06/07/24 09:00 06/08/24 08:30 Capsaicin 0.025% Cream 60 Gm Tube TOPICAL Not Given TID [facility] Protocol Carvedilol 12.5 mg 06/06/24 21:00 06/08/24 06:27 Carvedilol 12.5 Mg Tab PO 12.5 mg BID-W/MEALS EMILIANO Administration Famotidine 20 mg 06/08/24 21:00 Famotidine 20 Mg/2 Ml Vial IV Q12HR [facility] Furosemide 40 mg 06/06/24 22:00 06/08/24 06:27 Furosemide 10 Mg/Ml 4 Ml Vial IV 40 mg Q8H EMILIANO Administration Heparin Sodium (Porcine) 5,000 unit 06/08/24 21:00 Heparin Sodium,Porcine 5,000 Unit/Ml 1 Ml Vial SQ Q12HR [facility] Insulin Glargine 30 unit 06/06/24 21:00 06/07/24 21:17 Insulin Glargine (Lantus) 100 Unit/Ml Syr SQ 30 unit HS EMILIANO Administration Insulin Human Lispro 12 unit 06/06/24 21:00 06/08/24 08:15 Insulin Lispro (Humalog) 100 Unit/Ml 10 Ml Vl SQ Not Given TID@0730,1730,2100 [facility] Nystatin 1 applic 06/08/24 08:15 Nystatin 100,000 Unit/Gm Powd 15 Gm TOPICAL TID PRN [facility] Irritation Protocol Potassium Chloride 10 meq 06/06/24 20:38 Potassium Chloride Er 10 Meq Tab.Er.Prt PO DAILY PRN w/lasix Pregabalin 75 mg 06/06/24 22:00 06/08/24 08:30 Pregabalin 75 Mg Cap PO 75 mg TID EMILIANO Administration Objective - Vital Signs Vital signs: Vital Signs Temp 97.5 F L 06/08/24 07:53 Pulse 61 06/08/24 07:53 Resp 18 06/08/24 07:53 BP 118/71 06/08/24 07:53 Pulse Ox 96 06/08/24 07:53 FiO2 Intake & Output 06/07/24 06/08/24 06/08/24 18:59 06:59 18:59 Intake Total 250 20 128 Output Total 1250 1100 Balance -1000 -1080 128 Weight 136.078 kg Intake: IV 10 20 10 Invasive Line 1 10 20 10 Oral 240 118 Output: Urine 1250 1100 Other: Voiding Method External Catheter External Catheter External Catheter - Exam -GENERAL: The patient is alert and oriented x3, not in any acute distress. Well developed, well nourished. Obese HEENT: Pupils are round and equally reacting to light. EOMI. No scleral icterus. No conjunctival pallor. Normocephalic, atraumatic. No pharyngeal erythema. No thyromegaly. CARDIOVASCULAR: S1 and S2 present. No murmurs, rubs, or gallops. -PULMONARY: Chest is clear to auscultation, no wheezing , bilateral basal crackles. ABDOMEN: Soft, nontender, nondistended, normoactive bowel sounds. No palpable organomegaly. MUSCULOSKELETAL: No joint swelling or deformity. -EXTREMITIES: No cyanosis, clubbing. Bilateral leg edema. With elephantiasis NEUROLOGICAL: Gross neurological examination did not reveal any focal deficits. SKIN: No rashes. no petechiae. - Labs CBC & Chem 7: 06/06/24 13:11 06/08/24 06:17 Labs: Abnormal Lab Results - Last 24 Hours (Table) 06/07/24 06/08/24 06/08/24 Range/Units 17:01 06:17 07:56 BUN 38 H (7-17) mg/dL Creatinine 1.47 H (0.52-1.04) mg/dL Glucose 50 L (74-99) mg/dL POC Glucose (mg/dL) 138 H 60 L (70-110) mg/dL Assessment and Plan Assessment: Acute CHF exacerbation Bilateral leg swelling and elephantiasis Right hip and knee pain most likely secondary to osteoarthritis Diabetes mellitus Hypertension Hyperlipidemia Rheumatoid arthritis Hypothyroidism Sleep apnea on CPAP/BiPAP Chronic kidney disease stage III Depression Morbid obesity with BMI 44 Plan: Continue with IV Lasix Monitor creatinine and electrolytes Cardiology consult Pain management Labs and medication were reviewed.. Continue same treatment. Continue with symptomatic treatment. Resume home medication. Monitor lytes and vitals. DVT and GI prophylaxis. Further recommendations depends on the clinical course of the patient DVT prophylaxis: Subcutaneous heparin GI Prophylaxis: Pepcid PT/OT: Pending Prognosis is guarded
[2024-06-08] MEDS: NYSTATIN 100,000 UNIT/GM POWD 15 GM TOPICAL PRN (11:39)
--- NOTE | 2024-06-08 12:02 | P.PN ---
Subjective HISTORY OF PRESENT ILLNESS: This is a 69-year-old female with a past medical history significant for hypertension, hyperlipidemia, congestive heart failure, diabetes, and morbid obesity. Patient does not follow with a communication signals intelligence. We have been asked to see the patient in consultation for CHF. Patient examined at the bedside in the emergency room. Patient presented to the hospital with a chief complaint of shortness of breath that has been ongoing for the past several days. Patient also reports increased lower extremity edema. Patient was found to be in acute congestive heart failure and was started on IV Lasix. She denies any chest pain or pressure. Denies dizziness or lightheadedness. Denies any palpitations. Vital signs are stable. Telemetry reveals sinus mechanism. DIAGNOSTICS: - EKG reveals sinus bradycardia with no signs of acute ischemia - Chest xray mild cardiomegaly with diffuse interstitial and perihilar changes. Trace pleural effusions on the lateral view. Correlate for CHF with early interstitial pulmonary edema - Laboratory data: WBC 13.35. Hemoglobin 10.4. Platelet count 241. D-dimer 0.76. Sodium 141. Potassium 3.8. BUN 37. Creatinine 1.53. Troponin negative x 3. proBNP 2600. - Current home cardiac medications include aspirin 81 mg daily, Lipitor 40 mg daily, Lasix 20 mg twice a day as needed, amlodipine 10 mg daily, carvedilol 12.5 mg twice a day. - Most recent echocardiogram obtained in February 2022 revealed ejection fraction 55%, moderate pulmonary hypertension, mild MR, mild TR -Patient underwent Lexiscan stress test in September 2019 which was negative for ischemia 06/08/2024 Patient examined this morning at the bedside. Patient currently denies chest pain or pressure. She reports improvement in her shortness of breath. She remains on IV Lasix 40 mg every 8 hours. BUN 38. Creatinine 1.47. 2D echo remains pending PHYSICAL EXAM: VITAL SIGNS: Reviewed. GENERAL: Well-developed in no acute distress. HEENT: Head is normocephalic. Pupils are equal, round. Sclerae anicteric. Mucous membranes of the mouth are moist. Neck supple. No JVD or thyromegaly LUNGS: Respirations even and unlabored. Lungs essentially clear to auscultation bilaterally. HEART: Regular rate and rhythm. S1 and S2 heard. ABDOMEN: Soft. Nondistended. Nontender. EXTREMITIES: Normal range of motion. No clubbing or cyanosis. Peripheral pulses intact. Bilateral lower extremity edema with chronic venous stasis NEUROLOGIC: Awake and alert. Oriented x 3. ASSESSMENT: Shortness of breath Acute on chronic heart failure with preserved EF, 55% in 2022, repeat echo pending Moderate pulmonary hypertension Chronic kidney disease Hypertension Hyperlipidemia Diabetes Morbid obesity: BMI 44.3 History of rheumatoid arthritis PLAN: 2D echo pending. Await results. Continue IV Lasix. Decrease frequency to every 12 hours. Daily weights, accurate intake and output, monitoring of kidney function Further recommendations pending patient course Nurse practitioner note has been reviewed by physician. Signing provider agrees with the documented findings, assessment, and plan of care documented by ICING MIXER as a scribe. Objective - Vital Signs Vital signs: Vital Signs Temp 97.5 F L 06/08/24 07:53 Pulse 54 L 06/08/24 11:39 Resp 18 06/08/24 11:39 BP 119/74 06/08/24 11:39 Pulse Ox 98 06/08/24 11:39 FiO2 Intake & Output 06/07/24 06/08/24 06/08/24 18:59 06:59 18:59 Intake Total 250 20 128 Output Total 1250 1100 Balance -1000 -1080 128 Weight 136.078 kg Intake: IV 10 20 10 Invasive Line 1 10 20 10 Oral 240 118 Output: Urine 1250 1100 Other: Voiding Method External Catheter External Catheter External Catheter - Labs CBC & Chem 7: 06/06/24 13:11 06/08/24 06:17 Labs: Abnormal Lab Results - Last 24 Hours (Table) 06/07/24 06/08/24 06/08/24 Range/Units 17:01 06:17 07:56 BUN 38 H (7-17) mg/dL Creatinine 1.47 H (0.52-1.04) mg/dL Glucose 50 L (74-99) mg/dL POC Glucose (mg/dL) 138 H 60 L (70-110) mg/dL
[2024-06-08 13:12] VITALS: BMI 49.2
--- NOTE | 2024-06-08 13:51 | CA ---
Transthoracic Echo Report Name: Alma Vivar Age: 69 Gender: F : 1955 Exam Date: 06/07/2024 17:40 Exam Location: [facility] Ht (in): 69 Wt (lb): 300 Ordering Physician: Johnnie Shah DO Attending/Referring Phys: Rattling Machine Tender Laura Zimmerman RDCS Procedure CPT: Indications: Heart failure Cardiac Hx: Technical Quality: Fair Contrast 1: Total Dose (mL): Contrast 2: Total Dose (mL): MEASUREMENTS (Male / Female) Normal Values 2D ECHO LV Diastolic Diameter PLAX 4.5 cm 4.2 - 5.9 / 3.9 - 5.3 cm LV Systolic Diameter PLAX 3.0 cm IVS Diastolic Thickness 1.2 cm 0.6 - 1.0 / 0.6 - 0.9 cm LVPW Diastolic Thickness 1.1 cm 0.6 - 1.0 / 0.6 - 0.9 cm LV Relative Wall Thickness 0.5 RV Internal Dim ED PLAX 3.7 cm LVOT Diameter 2.2 cm LA Volume 86.0 cm??? 18 - 58 / 22 - 52 cm??? LA Volume Index 32.5 cm???/m??? 16 - 28 cm???/m??? Ascending Aorta Diameter 3.5 cm M-MODE LV Diastolic Diameter MM 4.9 cm 4.2 - 5.9 / 3.9 - 5.3 cm LV Systolic Diameter MM 3.2 cm LV Cardiac Index MM Teich 1567.9 cm???/min???m??? IVS Diastolic Thickness MM 1.2 cm 0.6 - 1.0 / 0.6 - 0.9 cm LVPW Diastolic Thickness MM 1.3 cm 0.6 - 1.0 / 0.6 - 0.9 cm LV Relative Wall Thickness MM 0.5 0.24 - 0.42 / 0.22 - 0.42 LV Mass Index MM 94.8 g/m??? 49 - 115 / 43 - 95 g/m??? DOPPLER AV Peak Velocity 167.2 cm/s AV Peak Gradient 11.2 mmHg AV Mean Velocity 110.8 cm/s AV Mean Gradient 5.7 mmHg AV Velocity Time Integral 38.8 cm LVOT Peak Velocity 133.2 cm/s LVOT Peak Gradient 7.1 mmHg LVOT Velocity Time Integral 32.0 cm LVOT Stroke Volume 121.7 cm??? LVOT Stroke Volume Index 49.6 ml/m??? LVOT Cardiac Index 2625.8 cm???/min???m??? AV Area Cont Eq vti 3.1 cm??? AV Area Cont Eq pk 3.0 cm??? MV Peak Velocity 139.1 cm/s MV Peak Gradient 7.7 mmHg MV Mean Velocity 68.0 cm/s MV Mean Gradient 2.3 mmHg MV Velocity Time Integral 42.4 cm MV Area PHT 3.7 cm??? Mitral E Point Velocity 102.4 cm/s Mitral A Point Velocity 88.0 cm/s Mitral E to A Ratio 1.2 MV Deceleration Time 204.7 ms TR Peak Velocity 336.7 cm/s TR Peak Gradient 45.3 mmHg Right Ventricular Systolic Press 65.3 mmHg PV Peak Velocity 110.4 cm/s PV Peak Gradient 4.9 mmHg FINDINGS Left Ventricle Left ventricular ejection fraction is estimated at 60 %. Severely increased left ventricular mass. Mildly increased septal wall thickness. Mildly increased posterior wall thickness. Mildly decreased midwall fractional shortening. Moderately increased left ventricular relative wall thickness. Left ventricle not well visualized for volume size. No obvious regional wall motion abnormalities. Right Ventricle Right ventricle not well visualized. Normal right ventricular free wall motion. Severe pulmonary hypertension. Right Atrium Right atrium not well visualized. Left Atrium Mildly increased left atrial volume. Mildly increased left atrial area. Mitral Valve Mitral valve thickened. No evidence for mitral valve prolapse. No mitral stenosis. Trace mitral regurgitation. Aortic Valve Trileaflet aortic valve. Aortic valve sclerosis. No aortic valve stenosis or regurgitation. Tricuspid Valve Structurally normal tricuspid valve. No tricuspid stenosis. [id number] tricuspid regurgitation. Pulmonic Valve Pulmonic valve not well visualized. No pulmonic stenosis. No pulmonic regurgitation. Pericardium No pericardial effusion. Aorta Normal size aortic root and proximal ascending aorta. CONCLUSIONS Left ventricular ejection fraction 60% Mildly increased left ventricular wall thickness RVSP 65 Mildly dilated left atrium Trace mitral regurgitation Mild to moderate tricuspid regurgitation No pericardial effusion Previewed by: Dr. Livan Terrell DO (Electronically Signed) Final Date: 08 June 2024 13:50
[2024-06-08 17:02] LABS: Glucose,Whole Blood 220 mg/dL (70-110)
[2024-06-08] MEDS: ACETAMINOPHEN TAB 325 MG TAB PO PRN (18:30)
[2024-06-08 20:12] LABS: Glucose,Whole Blood 130 mg/dL (70-110)
[2024-06-08] MEDS: FUROSEMIDE 10 MG/ML 4 ML VIAL IV SCH (20:12)
[2024-06-08] MEDS: HEPARIN SODIUM,PORCINE 5,000 UNIT/ML 1 ML VIAL SQ SCH (20:12)
[2024-06-08] MEDS: FAMOTIDINE 20 MG/2 ML VIAL IV SCH (20:12)
[2024-06-09 06:58] LABS: Glucose,Whole Blood 45 mg/dL (70-110)
[2024-06-09] MEDS ORDERED: DEXTROSE 50% SYRINGE 50 ML IVP STA (06:59)
[2024-06-09] MEDS: DEXTROSE 50% SYRINGE 50 ML IVP STA (07:12)
[2024-06-09 07:15] LABS: Glucose,Whole Blood 95 mg/dL (70-110)
[2024-06-09 07:54] LABS: Basophils # (A) 0.02 10*3/uL (0.00-0.10); Basophils % (A) 0.3 %; Eosinophils % (A) 3.9 %; HCT 30.9 % (37.2-46.3); HGB 9.3 g/dL (12.0-15.0); Lymphocytes # (A) 0.92 10*3/uL (0.90-5.00); Lymphocytes % (A) 11.9 %; MCH 28.8 pg (27.0-32.0); MCHC 30.1 g/dL (32.0-37.0); MCV 95.7 fL (80.0-97.0); Mean Platelet Volume 11.7 fL (9.5-12.2); Neutrophils # (A) 5.78 10*3/uL (1.80-7.70); Neutrophils % (A) 74.6 %; Platelet Count 182 10*3/uL (140-440); RBC 3.23 10*6/uL (4.10-5.20); RDW 15.8 % (11.5-14.5); WBC 7.74 10*3/uL (4.50-10.00)
[2024-06-09 07:57] LABS: African American GFR (CKD) 41 (>60 ml/min/1.73 sqM); Anion Gap 10 mmol/L; Blood Urea Nitrogen 39 mg/dL (7-17); Calcium 8.5 mg/dL (8.4-10.2); Carbon Dioxide 30 mmol/L (22-30); Chloride 102 mmol/L (98-107); Non-African American GFR(CKD) 36 (>60 ml/min/1.73 sqM); Sodium 142 mmol/L (137-145)
[2024-06-09 08:05] LABS: Glucose 38 mg/dL (74-99)
[2024-06-09] MEDS: FUROSEMIDE 40 MG TAB PO SCH (08:40)
[2024-06-09 11:02] VITALS: PULSE 60; RESP 18
[2024-06-09 11:22] LABS: Glucose,Whole Blood 125 mg/dL (70-110)
--- NOTE | 2024-06-09 13:25 | P.PN ---
Subjective HISTORY OF PRESENT ILLNESS: This is a 69-year-old female with a past medical history significant for hypertension, hyperlipidemia, congestive heart failure, diabetes, and morbid obesity. Patient does not follow with a chocolate finisher. We have been asked to see the patient in consultation for CHF. Patient examined at the bedside in the emergency room. Patient presented to the hospital with a chief complaint of shortness of breath that has been ongoing for the past several days. Patient also reports increased lower extremity edema. Patient was found to be in acute congestive heart failure and was started on IV Lasix. She denies any chest pain or pressure. Denies dizziness or lightheadedness. Denies any palpitations. Vital signs are stable. Telemetry reveals sinus mechanism. DIAGNOSTICS: - EKG reveals sinus bradycardia with no signs of acute ischemia - Chest xray mild cardiomegaly with diffuse interstitial and perihilar changes. Trace pleural effusions on the lateral view. Correlate for CHF with early interstitial pulmonary edema - Laboratory data: WBC 13.35. Hemoglobin 10.4. Platelet count 241. D-dimer 0.76. Sodium 141. Potassium 3.8. BUN 37. Creatinine 1.53. Troponin negative x 3. proBNP 2600. - Current home cardiac medications include aspirin 81 mg daily, Lipitor 40 mg daily, Lasix 20 mg twice a day as needed, amlodipine 10 mg daily, carvedilol 12.5 mg twice a day. - Most recent echocardiogram obtained in February 2022 revealed ejection fraction 55%, moderate pulmonary hypertension, mild MR, mild TR -Patient underwent Lexiscan stress test in September 2019 which was negative for ischemia 06/08/2024 Patient examined this morning at the bedside. Patient currently denies chest pain or pressure. She reports improvement in her shortness of breath. She remains on IV Lasix 40 mg every 8 hours. BUN 38. Creatinine 1.47. 2D echo remains pending 06/09/2024 Patient examined this morning at the bedside. Patient currently denies chest pain or pressure. She denies shortness of breath. She remains on IV Lasix. Echocardiogram completed revealing ejection fraction 60%, no obvious regional wall motion abnormalities, mild to moderate TR PHYSICAL EXAM: VITAL SIGNS: Reviewed. GENERAL: Well-developed in no acute distress. HEENT: Head is normocephalic. Pupils are equal, round. Sclerae anicteric. Mucous membranes of the mouth are moist. Neck supple. No JVD or thyromegaly LUNGS: Respirations even and unlabored. Lungs essentially clear to auscultation bilaterally. HEART: Regular rate and rhythm. S1 and S2 heard. ABDOMEN: Soft. Nondistended. Nontender. EXTREMITIES: Normal range of motion. No clubbing or cyanosis. Peripheral pulses intact. Bilateral lower extremity edema with chronic venous stasis NEUROLOGIC: Awake and alert. Oriented x 3. ASSESSMENT: Shortness of breath Acute on chronic heart failure with preserved EF, 55% in 2022, repeat echo pending Moderate pulmonary hypertension Chronic kidney disease Hypertension Hyperlipidemia Diabetes Morbid obesity: BMI 44.3 History of rheumatoid arthritis PLAN: Discontinue IV Lasix. Begin oral Lasix 40 mg daily Continue additional cardiac medications including amlodipine, aspirin, atorvastatin, carvedilol Daily weights, accurate intake and output, monitoring of kidney function Patient is currently stable from a cardiac standpoint Further recommendations pending patient course Nurse practitioner note has been reviewed by physician. Signing provider agrees with the documented findings, assessment, and plan of care documented by BALANCE BRIDGE ASSEMBLER as a scribe. Objective - Vital Signs Vital signs: Vital Signs Temp 97.9 F 06/09/24 08:00 Pulse 60 06/09/24 08:00 Resp 18 06/09/24 08:00 BP 94/54 06/09/24 08:00 Pulse Ox 94 L 06/09/24 08:00 FiO2 Intake & Output 06/08/24 06/09/24 06/09/24 18:59 06:59 18:59 Intake Total 1338 20 10 Output Total 750 Balance 1338 -730 10 Weight 151.2 kg Intake: IV 20 20 10 Invasive Line 1 20 20 10 Oral 1318 Output: Urine 750 Other: Voiding Method External Catheter External Catheter External Catheter - Labs CBC & Chem 7: 06/09/24 06:54 06/09/24 06:54 Labs: Abnormal Lab Results - Last 24 Hours (Table) 06/08/24 06/08/24 06/09/24 Range/Units 16:58 20:10 06:54 RBC (4.10-5.20) 10*6/uL Hgb (12.0-15.0) g/dL Hct (37.2-46.3) % MCHC (32.0-37.0) g/dL BUN 39 H (7-17) mg/dL Creatinine 1.47 H (0.52-1.04) mg/dL Glucose 38 L* (74-99) mg/dL POC Glucose (mg/dL) 220 H 130 H (70-110) mg/dL 06/09/24 06/09/24 06/09/24 Range/Units 06:54 06:57 11:21 RBC 3.23 L (4.10-5.20) 10*6/uL Hgb 9.3 L (12.0-15.0) g/dL Hct 30.9 L (37.2-46.3) % MCHC 30.1 L (32.0-37.0) g/dL BUN (7-17) mg/dL Creatinine (0.52-1.04) mg/dL Glucose (74-99) mg/dL POC Glucose (mg/dL) 45 L* 125 H (70-110) mg/dL
[2024-06-09 13:30] VITALS: TEMP 97.1
[2024-06-09 15:45] LABS: Glucose,Whole Blood 207 mg/dL (70-110)
[2024-06-09 16:17] LABS: Glucose,Whole Blood 193 mg/dL (70-110)
[2024-06-09 17:29] VITALS: BP 156/66
[2024-06-09] MEDS: INSULIN LISPRO (HumaLOG) 100 UNIT/ML 10 mL VL SQ SCH (17:41)
[2024-06-09] MEDS ORDERED: INSULIN GLARGINE (LANTUS) 100 UNIT/ML SYR SQ SCH (21:00)
[2024-06-09] MEDS ORDERED: FAMOTIDINE 20 MG TAB PO SCH (21:00)
--- NOTE | 2024-06-10 00:11 | P.PN ---
Subjective Please consider this note as discharge summary This is a pleasant 69 years old female who presents because of worsening dyspnea over 1.5-week with no chest pain or coughing or phlegm No other specific GI/ symptoms no headache dizziness weakness. She denies smoking alcohol or illicit drugs. Patient uses a walker and recently has been experiencing exertional dyspnea more than usual She went to see her PCP Dr. Rabago who referred her to the hospital As per patient has been peeing less Patient is hemodynamically stable She has mild bradycardia Labs reviewed showing leukocytosis with 13.5 Hemoglobin 10.4 Creatinine 1.3 which is baseline of 1.3-2.2 INR and troponin were negative LFT negative EKG showing sinus bradycardia at [address]-T changes proBNP is 2600 Chest x-ray is ordered and showing CHF with cardiomegaly, I reviewed chest x-ray by myself and I agree 06/07 Patient breathing is stable at rest, her legs are severely swollen chronic from elephantiasis and hard to tell if there is improvement. Her right leg feels warm with no worsening erythema, I talked to the patient she states is always right hip and right knee pain she usually takes [place] 10 which is already ordered also will order capsaicin Other than that no urinary symptoms or diarrhea. She is saturating 93% on 2 L oxygen via nasal cannula Morning labs still pending 06/08 Patient still feels short of breath and somewhat tachypneic However leg swelling and lung crepitation no improvement, mainly on the right side Remains on IV Lasix 40 mg twice daily. We added water restriction today Looks like her right knee pain and hip pain is better controlled today PT/OT pending. creatinine 1.4 Possible discharge 24 to 48 hours if she keeps improving. 06/09 Patient continued to improve steadily, today her dyspnea is much better. Her basal crepitations significantly improved. Patient feeling she is better. Patient denies any other new complaint. She had low glucose in the morning and she was provided with juices and food and currently improved over more than 2 readings. We lowered the dose of her Lantus from 30 down to 25 units and NovoLog 12 down to 10 units with meals. Patient feels he can be discharged home today Founder And Chief Technical Officer also evaluated the patient today and cleared her for discharge. Patient was instructed about her problem of hypoglycemia and lowering the dose of insulin and she agrees. Also instructed to monitor her glucose closely, please refer to the written instruction. Patient agrees with these instructions. Problems and management plan were discussed with the patient and he verbalized understanding and acceptance We checked patient does not qualify for home oxygen, she was saturating 91% with exertion Patient was found stable and can be discharged home in guarded prognosis however he needs follow-up as an outpatient. Patient was instructed to follow up with PCP within one week and patient agrees Patient was instructed to follow-up with her bilingual sales assistant as an outpatient in 1 to 2 weeks and she agrees Time spent more than 35 minutes Review of systems CONSTITUTIONAL: No fever, no malaise, no fatigue. GASTROINTESTINAL: No diarrhea, no nausea, no vomiting, no abdominal pain. Norm oactive bowel sounds. NEUROLOGICAL: No headaches, no weakness, no numbness. HEMATOLOGICAL: Denies any bleeding or petechiae. GENITOURINARY: Denies any burning micturition, frequency, or urgency. Active Medications Generic Name Dose Route Start Last Admin Trade Name Freq PRN Reason Stop Dose Admin Hydrocodone Bitart/Acetaminophen 1 each 06/06/24 18:28 06/08/24 06:33 Hydrocodone/Apap 10-325mg 1 Each Tab PO 1 each Q8HR PRN Administration Pain Amlodipine Besylate 10 mg 06/07/24 09:00 06/08/24 08:30 Amlodipine 10 Mg Tab PO 10 mg DAILY EMILIANO Administration Aspirin 81 mg 06/07/24 09:00 06/08/24 08:30 Aspirin 81 Mg PO 81 mg DAILY EMILIANO Administration Atorvastatin Calcium 40 mg 06/07/24 09:00 06/08/24 08:30 Atorvastatin 40 Mg Tab PO 40 mg DAILY EMILIANO Administration Capsaicin 1 applic 06/07/24 09:00 06/08/24 08:30 Capsaicin 0.025% Cream 60 Gm Tube TOPICAL Not Given TID [facility] Protocol Carvedilol 12.5 mg 06/06/24 21:00 06/08/24 06:27 Carvedilol 12.5 Mg Tab PO 12.5 mg BID-W/MEALS EMILIANO Administration Famotidine 20 mg 06/08/24 21:00 Famotidine 20 Mg/2 Ml Vial IV Q12HR EMILIANO Furosemide 40 mg 06/06/24 22:00 06/08/24 06:27 Furosemide 10 Mg/Ml 4 Ml Vial IV 40 mg Q8H EMILIANO Administration Heparin Sodium (Porcine) 5,000 unit 06/08/24 21:00 Heparin Sodium,Porcine 5,000 Unit/Ml 1 Ml Vial SQ Q12HR EMILIANO Insulin Glargine 30 unit 06/06/24 21:00 06/07/24 21:17 Insulin Glargine (Lantus) 100 Unit/Ml Syr SQ 30 unit HS EMILIANO Administration Insulin Human Lispro 12 unit 06/06/24 21:00 06/08/24 08:15 Insulin Lispro (Humalog) 100 Unit/Ml 10 Ml Vl SQ Not Given TID@0730,1730,2100 EMILIANO Nystatin 1 applic 06/08/24 08:15 Nystatin 100,000 Unit/Gm Powd 15 Gm TOPICAL TID PRN Skin Irritation Protocol Potassium Chloride 10 meq 06/06/24 20:38 Potassium Chloride Er 10 Meq Tab.Er.Prt PO DAILY PRN w/lasix Pregabalin 75 mg 06/06/24 22:00 06/08/24 08:30 Pregabalin 75 Mg Cap PO 75 mg TID EMILIANO Administration Objective - Vital Signs Vital signs: Vital Signs Temp 97.1 F L 06/09/24 12:00 Pulse 60 06/09/24 12:00 Resp 18 06/09/24 12:00 BP 152/67 06/09/24 12:00 Pulse Ox 97 06/09/24 12:00 FiO2 Intake & Output 06/08/24 06/09/24 06/09/24 18:59 06:59 18:59 Intake Total 1338 20 190 Output Total 750 Balance 1338 -730 190 Weight 151.2 kg Intake: IV 20 20 10 Invasive Line 1 20 20 10 Oral 1318 180 Output: Urine 750 Other: Voiding Method External Catheter External Catheter External Catheter - Exam -GENERAL: The patient is alert and oriented x3, not in any acute distress. Well developed, well nourished. Obese HEENT: Pupils are round and equally reacting to light. EOMI. No scleral icterus. No conjunctival pallor. Normocephalic, atraumatic. No pharyngeal erythema. No thyromegaly. CARDIOVASCULAR: S1 and S2 present. No murmurs, rubs, or gallops. -PULMONARY: Chest is clear to auscultation, no wheezing , bilateral basal crackles. ABDOMEN: Soft, nontender, nondistended, normoactive bowel sounds. No palpable organomegaly. MUSCULOSKELETAL: No joint swelling or deformity. -EXTREMITIES: No cyanosis, clubbing. Bilateral leg edema. With elephantiasis NEUROLOGICAL: Gross neurological examination did not reveal any focal deficits. SKIN: No rashes. no petechiae. - Labs CBC & Chem 7: 06/09/24 06:54 06/09/24 06:54 Labs: Abnormal Lab Results - Last 24 Hours (Table) 06/08/24 06/08/24 06/09/24 Range/Units 16:58 20:10 06:54 RBC (4.10-5.20) 10*6/uL Hgb (12.0-15.0) g/dL Hct (37.2-46.3) % MCHC (32.0-37.0) g/dL BUN 39 H (7-17) mg/dL Creatinine 1.47 H (0.52-1.04) mg/dL Glucose 38 L* (74-99) mg/dL POC Glucose (mg/dL) 220 H 130 H (70-110) mg/dL 06/09/24 06/09/24 06/09/24 Range/Units 06:54 06:57 11:21 RBC 3.23 L (4.10-5.20) 10*6/uL Hgb 9.3 L (12.0-15.0) g/dL Hct 30.9 L (37.2-46.3) % MCHC 30.1 L (32.0-37.0) g/dL BUN (7-17) mg/dL Creatinine (0.52-1.04) mg/dL Glucose (74-99) mg/dL POC Glucose (mg/dL) 45 L* 125 H (70-110) mg/dL Assessment and Plan Assessment: Acute CHF exacerbation Bilateral leg swelling and elephantiasis Right hip and knee pain most likely secondary to osteoarthritis Diabetes mellitus Hypertension Hyperlipidemia Rheumatoid arthritis Hypothyroidism Sleep apnea on CPAP/BiPAP Chronic kidney disease stage III Depression Morbid obesity with BMI 44 Plan: Continue with IV Lasix Monitor creatinine and electrolytes Cardiology consult Pain management Labs and medication were reviewed.. Continue same treatment. Continue with symptomatic treatment. Resume home medication. Monitor lytes and vitals. DVT and GI prophylaxis. Further recommendations depends on the clinical course of the patient DVT prophylaxis: Subcutaneous heparin GI Prophylaxis: Pepcid PT/OT: Pending Prognosis is guarded Patient medically stable and cleared for discharge by bilingual sales assistant
== END 2024-06-09 18:30 | disposition home health service (06) | DRG 291 ==
LOC: EC 12:55 → 3SCARD 14:47 → OBSVTOIN 14:47 → 3SCARD 17:38
PROVIDERS: ADMIT Internal Medicine; ATTEND Internal Medicine
DX: I13.0 Hypertensive heart and chronic kidney disease with heart failure and stage 1 through stage 4 chronic kidney disease, or unspecified chronic kidney disease (principal); I50.33 Acute on chronic diastolic (congestive) heart failure; I27.20 Pulmonary hypertension, unspecified; E11.22 Type 2 diabetes mellitus with diabetic chronic kidney disease; E03.9 Hypothyroidism, unspecified; D72.829 Elevated white blood cell count, unspecified; Z68.41 Body mass index [BMI] 40.0-44.9, adult; M06.9 Rheumatoid arthritis, unspecified; N18.30 Chronic kidney disease, stage 3 unspecified; F32.A Depression, unspecified; I08.1 Rheumatic disorders of both mitral and tricuspid valves; E66.01 Morbid (severe) obesity due to excess calories; E11.649 Type 2 diabetes mellitus with hypoglycemia without coma; Z79.4 Long term (current) use of insulin; R00.1 Bradycardia, unspecified; I89.0 Lymphedema, not elsewhere classified; E78.5 Hyperlipidemia, unspecified; M19.90 Unspecified osteoarthritis, unspecified site; Z79.890 Hormone replacement therapy; G47.30 Sleep apnea, unspecified; Z79.82 Long term (current) use of aspirin; Z79.899 Other long term (current) drug therapy; Z82.49 Family history of ischemic heart disease and other diseases of the circulatory system; Z86.73 Personal history of transient ischemic attack (TIA), and cerebral infarction without residual deficits; Z88.6 Allergy status to analgesic agent
CPT/HCPCS: 36415; 71046; 80048; 80053; 83735; 83880; 84484; 85025; 85379; 85610; 85730; 93005; 93306; 96374; 96375; 96376; 99285